=== PATIENT | female | born 1935 | race Caucasian/White ===

== ENCOUNTER 2022-05-23 14:27 | Inpatient (IN) ==
[2022-05-23 17:06] LABS: INR 1.1 (0.9-1.1); Partial Thromboplastin Ratio 0.9; Partial Thromboplastin Time 25.1 Seconds (21.0-31.0); Prothrombin Time 11.4 Seconds (9.0-12.0)
[2022-05-23 17:16] LABS: Albumin Globulin Ratio 1.4 (0.9-2); Albumin Level 3.8 gm/dl (3.4-5.0); BUN Creatinine Ratio 31.3 (10-20); Bilirubin,Total 1.9 mg/dl (0.2-1.0); Calcium 9.4 mg/dl (8.5-10.1); Creatinine Clr Calc Pharmacy 33.8 ml/min; Est GFR (Non-African American) 63.9 ml/min; Globulin 2.8 gm/dl (2.5-4.0); Potassium 3.9 mmol/L (3.5-5.1); Total Protein 6.6 gm/dl (6.0-8.3)
[2022-05-23 17:17] LABS: Hematocrit (blood only) 30.3 % (34.1-44.9); Hemoglobin 10.1 g/dl (12.0-16.0); Mean Corpuscular Hemoglobin 31.4 pg (25.0-34.0); Mean Corpuscular Hgb Conc 33.3 g/dL (32.0-36.0); Mean Corpuscular Volume 94.1 fL (80.0-100.0); Platelet Count 1 K/uL (130-400); RDW Coefficient of Variation 14.6 % (11.5-14.5); RDW Standard Deviation 50.2 fL (36.4-46.3); Red Blood Count 3.22 M/uL (3.93-5.22)
[2022-05-23 17:18] LABS: Basophils # (auto) 0.04 K/uL (0-0.2); Basophils % (auto) 0.6 %; Eosinophils % (auto) 1.4 %; Immature Granulocytes # (auto) 0.02 K/uL (0.00-0.02); Immature Granulocytes % (auto) 0.3 %; Lymphocytes # (auto) 0.94 K/uL (1.2-3.4); Lymphocytes % (auto) 13.2 %; Monocytes # (auto) 0.49 K/uL (0.24-0.82); Monocytes % (auto) 6.9 %; Neutrophils # (auto) 5.51 K/uL (1.4-6.5); Neutrophils % (auto) 77.6 %; Platelet Estimate Signific. Decreased (Normal)
--- NOTE | 2022-05-23 17:46 | Emergency Department Note ---
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 She is in no distress she is breathing comfortably she has no abdominal pain and denies any recent black or bloody stools nor any vomiting. She has no headache or neurologic deficits. Patient had been treated for low platelets since 2016 with what she reports were injections until about 6 months ago. She has been on Dopelet orally for her low platelet counts over the last few months and states that she has been doing well. She is in no distress she is breathing comfortably she has no evidence of other bleeding. Laboratory work-up reveals platelets of 1 otherwise just mild anemia. Reviewed daily labs with her hematology team who advised IV steroids and IVIG and admission here. Without heavy bleeding they advised avoiding antiplatelet transfusion. I discussed this with the on-call hospitalist who state they do not feel comfortable taking care of this patient in case she were to get worse. They note they are concerned that if she had any significant bleeding we would not have enough platelets to treat her and that we do not have neurosurgeons in case she had a head bleed. Patient was accepted to [facility] for further management. She was agreeable to this as was son. Prior Medical Record and Triage/Nursing Notes reviewed by Me Additional history obtained from chart Differentials:Thrombocytopenia anemia, bleeding dyscrasia, active bleeding, intracranial hemorrhage, GI bleed, multiple other allergies considered. Vital Signs: reviewed and remarkable for no significant abnormalities Interventions: Decadron 10mg IV, IVIG Labs:Reviewed and remarkable for thrombocytopenia Consults: Raquel Little [facility] hematology advised Decadron 40 mg IV and IVIG. They advised hospitalization and monitoring awaiting platelets to go up. Discussed with Dr. Chen of [facility] hospitalist service here at [facility] who notes not feeling comfortable keeping the patient here and advised transfer to a higher level of care. Reviewed case with Dr Conde of [facility]. Notes no beds available for the next 24-48 hrs. Advised hospitalize here, management, and will keep on list for transfer with re-evaluation tomorrow with team. I discussed the case again at length with Dr. Chen who again states that he does not feel comfortable caring for this patient, he states patient will need to be attempted to transfer somewhere else. I discussed the case with Dr. Villeda at [facility] who is with their hematology service he agreed with the above treatment that was already being provided here at [facility]. He noted that they have beds at [facility] and if we do not feel comfortable caring for the patient we can transfer the patient there. Agreed with avoiding any transfusion at this time. Plan: Disposition: Transfer to [facility] planned, however awaiting if transport available. Tentatively signed out to Dr Dumont in case unable to get transfer in timely manner. Condition: Good History of Present Illness:86-year-old female arrives for evaluation of low platelets patient states she has a long history of low blood platelets starting in 2016. She used to get injections for this though switch to a pill several months ago when she moved up here from [place]. She ran out of her pill about a week ago. She has noted some increased bruising on her hands may be a little blood in her mouth. She denies any actual coughing up of blood other than noting blood in her sputum when she spits. She has no black or bloody stools. She has no abdominal pain, headache, chest pain, shortness of breath, back pain, leg swelling or other concerning signs or symptoms. She takes no blood thinners. Patient notes she was previously on an injection though has been on Dopelet p.o. but ran out of it a week and a half ago. She was seen at her hematology clinic this morning where labs showed low platelets and given she had had some blood in her mall she was sent to the ER. ROS: See above HPI for pertinent positives & negatives. A total of 10 systems reviewed and were otherwise negative. Past Medical History:Hypertension, ITP Past Surgical History:Denies previous surgeries Family History:Parents are , son is healthy. Social History:Recently moved to the area and lives with son. No smoking Home Medications:Can't remember which blood pressure medicine she is on, Dopelet Allergies:[facility] Vitals:Blood Pressure: 166/62, Pulse 61, RR 20, T 36.4C, O2 95% on RA Physical Exam: GENERAL: Patient is well appearing and in no distress. EYES: No scleral icterus, unremarkable pupils. ENT: Small blood blister right lower and left lower mucosa, no blood in oropharynx at this time. Mucous membranes moist, no nasal congestion. NECK: No masses appreciated, nomeningismus, trachea is midline. RESPIRATORY: No dyspnea. Clear to auscultation and equal bilaterally. No wheeze, no rhonchi. CARDIOVASCULAR: Regular rate and rhythm.No murmurs, rubs, gallops appreciated. GASTROINTESTINAL: Abdomen soft, non-tender, no peritonitis.Bowel sounds positive.No masses appreciated. BACK: No midline tenderness, no CVA tenderness EXTREMITIES: Normal motion all extremities, no cyanosis, no edema. NEUROLOGIC: Alert and oriented, no acute motor or sensory deficits, no focal weakness, cranial nerves grossly intact. SKIN: Small areas of bleeding and some petechiae noted. No rash, no jaundice, no diaphoresis. PSYCH: Appropriate GCS: 15 ED Course: Times/Reassessments: Stable throughout no distress and comfortable with plan for transfer to higher level of care Azam Han MD Past Med/Surg History Social History Smoking Status: Former smoker Hx Alcohol Use: No Hx Substance Use: No Preferred Language: Occitan Communication Ability: Effective Tree Pruner Required: No Beliefs That Will Affect Care: None Current Living Situation: Family Feels Safe at Home: Yes Safety Concerns: Feels Safe At This Time Assistive Devices: Glasses Allergies Allergies Allergy/AdvReac Type Severity Reaction Status Date / Time lisinopril AdvReac Gastrointestinal Unverified 05/23/22 19:33 Upset Home Meds Home Medications Medication Instructions Recorded Confirmed amlodipine 2.5 mg tablet 2.5 mg PO DAILY 05/23/22 05/23/22 bisoprolol fumarate 5 mg tablet 5 mg PO DAILY 05/23/22 05/23/22 cholecalciferol (vitamin D3) 25 25 mcg PO DAILY 05/23/22 05/23/22 mcg (1,000 unit) tablet (Vitamin D3) cyanocobalamin (vitamin B-12) 1,000 mcg PO DAILY 05/23/22 05/23/22 1,000 mcg tablet hydrochlorothiazide 12.5 mg tablet 12.5 mg PO DAILY 05/23/22 05/23/22 Results & Data (ED) Vital Signs Vital Signs - 24 hr 05/23/22 14:35 05/23/22 17:40 05/23/22 18:30 Temperature 36.4 C L Temperature Source Oral Pulse Rate 67 Pulse Rate [Apical] 67 54 L Pulse Rate from SpO2 Sensor Pulse Rhythm [Apical] Regular Respiratory Rate 18 18 18 Respiratory Effort / Characteristics Non-Labored Spontaneous Non-Labored Non-Labored Respiratory Depth Normal Normal Normal Respiratory Pattern Regular Blood Pressure Blood Pressure [Right Arm] 175/62 H 175/62 H Blood Pressure Mean Blood Pressure Mean [Right Arm] 99 99 Blood Pressure Position [Right Arm] Pulse Oximetry 98 100 96 Oxygen Delivery Method Room Air Room Air Room Air Sepsis Recent Fever Within 48 Hours No Sepsis New/Unexplained Change in Mental Status No Sepsis Action Taken by Nursing No Action Required 05/23/22 19:00 05/23/22 20:37 05/23/22 20:00 Temperature 36.9 C Temperature Source Oral Pulse Rate 61 65 Pulse Rate [Apical] 59 L Pulse Rate from SpO2 Sensor 63 67 Pulse Rhythm [Apical] Respiratory Rate 26 H 16 20 Respiratory Effort / Characteristics Respiratory Depth Respiratory Pattern Blood Pressure 166/62 H 169/74 H Blood Pressure [Right Arm] 141/69 H Blood Pressure Mean 96 105 Blood Pressure Mean [Right Arm] 93 Blood Pressure Position [Right Arm] Lying Pulse Oximetry 95 94 95 Oxygen Delivery Method Room Air Room Air Room Air Sepsis Recent Fever Within 48 Hours Sepsis New/Unexplained Change in Mental Status Sepsis Action Taken by Nursing 05/23/22 20:53 05/23/22 21:12 05/23/22 21:35 Temperature 36.9 C 36.8 C 36.6 C Temperature Source Oral Oral Oral Pulse Rate Pulse Rate [Apical] 95 H 63 62 Pulse Rate from SpO2 Sensor Pulse Rhythm [Apical] Respiratory Rate 16 16 16 Respiratory Effort / Characteristics Non-Labored Spontaneous Respiratory Depth Normal Respiratory Pattern Blood Pressure Blood Pressure [Right Arm] 146/54 H 151/62 H 122/81 Blood Pressure Mean Blood Pressure Mean [Right Arm] 84 91 94 Blood Pressure Position [Right Arm] Semi-fowlers Semi-fowlers Lying Pulse Oximetry 95 96 97 Oxygen Delivery Method Room Air Room Air Sepsis Recent Fever Within 48 Hours Sepsis New/Unexplained Change in Mental Status Sepsis Action Taken by Nursing 05/23/22 21:56 05/23/22 22:36 05/23/22 23:26 Temperature 36.6 C 36.5 C Temperature Source Oral Oral Pulse Rate Pulse Rate [Apical] 66 68 Pulse Rate from SpO2 Sensor Pulse Rhythm [Apical] Respiratory Rate 16 16 Respiratory Effort / Characteristics Non-Labored Spontaneous Respiratory Depth Normal Respiratory Pattern Blood Pressure Blood Pressure [Right Arm] 155/64 H 150/110 H Blood Pressure Mean Blood Pressure Mean [Right Arm] 94 123 Blood Pressure Position [Right Arm] Sitting Pulse Oximetry 97 97 Oxygen Delivery Method Room Air Room Air Sepsis Recent Fever Within 48 Hours Sepsis New/Unexplained Change in Mental Status Sepsis Action Taken by Nursing 05/23/22 21:30 05/23/22 22:00 05/23/22 22:15 Temperature Temperature Source Pulse Rate 65 63 60 Pulse Rate [Apical] Pulse Rate from SpO2 Sensor 65 63 60 Pulse Rhythm [Apical] Respiratory Rate 17 23 20 Respiratory Effort / Characteristics Respiratory Depth Respiratory Pattern Blood Pressure 152/59 H 113/49 L Blood Pressure [Right Arm] Blood Pressure Mean 90 70 Blood Pressure Mean [Right Arm] Blood Pressure Position [Right Arm] Pulse Oximetry 97 96 96 Oxygen Delivery Method Room Air Room Air Sepsis Recent Fever Within 48 Hours Sepsis New/Unexplained Change in Mental Status Sepsis Action Taken by Nursing 05/23/22 22:30 05/23/22 22:45 05/23/22 23:00 Temperature Temperature Source Pulse Rate 61 62 59 L Pulse Rate [Apical] Pulse Rate from SpO2 Sensor 63 61 59 L Pulse Rhythm [Apical] Respiratory Rate 18 18 19 Respiratory Effort / Characteristics Respiratory Depth Respiratory Pattern Blood Pressure 140/59 L 136/52 L 122/52 L Blood Pressure [Right Arm] Blood Pressure Mean 86 80 75 Blood Pressure Mean [Right Arm] Blood Pressure Position [Right Arm] Pulse Oximetry 96 99 97 Oxygen Delivery Method Room Air Room Air Room Air Sepsis Recent Fever Within 48 Hours Sepsis New/Unexplained Change in Mental Status Sepsis Action Taken by Nursing Laboratory Data Result diagrams: 05/24/22 05:42 05/24/22 05:42 Lab Results 05/23/22 05/23/22 05/23/22 Range/Units 16:30 16:32 16:32 WBC 7.10 (4.8-10.8) K/ul RBC 3.22 L (3.93-5.22) M/uL Hgb 10.1 L (12.0-16.0) g/dl Hct 30.3 L (34.1-44.9) % MCV 94.1 (80.0-100.0) fL MCH 31.4 (25.0-34.0) pg MCHC 33.3 (32.0-36.0) g/dL RDW Std Deviation 50.2 H (36.4-46.3) fL RDW Coeff of Dwaine 14.6 H (11.5-14.5) % Plt Count 1 L* (130-400) K/uL Immature Gran % (Auto) 0.3 % Neut % (Auto) 77.6 % Lymph % (Auto) 13.2 % Willacy % (Auto) 6.9 % Eos % (Auto) 1.4 % Baso % (Auto) 0.6 % Neut # (Auto) 5.51 (1.4-6.5) K/uL Lymph # (Auto) 0.94 L (1.2-3.4) K/uL Willacy # (Auto) 0.49 (0.24-0.82) K/uL Eos # (Auto) 0.10 (0-0.50) K/uL Baso # (Auto) 0.04 (0-0.2) K/uL Immature Gran # (Auto) 0.02 (0.00-0.02) K/uL Platelet Estimate Signific. Decreased L (Normal) PT 11.4 (9.0-12.0) Seconds INR 1.1 (0.9-1.1) APTT 25.1 (21.0-31.0) Seconds PTT Ratio 0.9 Sodium 138 (136-145) mmol/L Potassium 3.9 (3.5-5.1) mmol/L Chloride 102 (98-107) mmol/L Carbon Dioxide 32 (21-32) mmol/L Anion Gap 4 (3-11) BUN 26 H (6-23) mg/dl Creatinine 0.83 (0.6-1.2) mg/dl Est Cr Clr Drug Dosing 33.8 ml/min Est GFR ( Amer) 74.0 ml/min Est GFR (Non-Af Amer) 63.9 ml/min BUN/Creatinine Ratio 31.3 H (10-20) Glucose 101 H (70-99(Fasting)) mg/dl Calcium 9.4 (8.5-10.1) mg/dl Total Bilirubin 1.9 H (0.2-1.0) mg/dl AST 16 (13-39) U/L ALT 9 (7-52) U/L Alkaline Phosphatase 31 L (34-104) U/L Total Protein 6.6 (6.0-8.3) gm/dl Albumin 3.8 (3.4-5.0) gm/dl Globulin 2.8 (2.5-4.0) gm/dl Albumin/Globulin Ratio 1.4 (0.9-2) SARS-CoV-2, RNA, NAAT (NEGATIVE) 05/23/22 Range/Units 18:26 WBC (4.8-10.8) K/ul RBC (3.93-5.22) M/uL Hgb (12.0-16.0) g/dl Hct (34.1-44.9) % MCV (80.0-100.0) fL MCH (25.0-34.0) pg MCHC (32.0-36.0) g/dL RDW Std Deviation (36.4-46.3) fL RDW Coeff of Dwaine (11.5-14.5) % Plt Count (130-400) K/uL Immature Gran % (Auto) % Neut % (Auto) % Lymph % (Auto) % Willacy % (Auto) % Eos % (Auto) % Baso % (Auto) % Neut # (Auto) (1.4-6.5) K/uL Lymph # (Auto) (1.2-3.4) K/uL Willacy # (Auto) (0.24-0.82) K/uL Eos # (Auto) (0-0.50) K/uL Baso # (Auto) (0-0.2) K/uL Immature Gran # (Auto) (0.00-0.02) K/uL Platelet Estimate (Normal) PT (9.0-12.0) Seconds INR (0.9-1.1) APTT (21.0-31.0) Seconds PTT Ratio Sodium (136-145) mmol/L Potassium (3.5-5.1) mmol/L Chloride (98-107) mmol/L Carbon Dioxide (21-32) mmol/L Anion Gap (3-11) BUN (6-23) mg/dl Creatinine (0.6-1.2) mg/dl Est Cr Clr Drug Dosing ml/min Est GFR ( Amer) ml/min Est GFR (Non-Af Amer) ml/min BUN/Creatinine Ratio (10-20) Glucose (70-99(Fasting)) mg/dl Calcium (8.5-10.1) mg/dl Total Bilirubin (0.2-1.0) mg/dl AST (13-39) U/L ALT (7-52) U/L Alkaline Phosphatase (34-104) U/L Total Protein (6.0-8.3) gm/dl Albumin (3.4-5.0) gm/dl Globulin (2.5-4.0) gm/dl Albumin/Globulin Ratio (0.9-2) SARS-CoV-2, RNA, NAAT NEGATIVE (NEGATIVE) Administered Medications Amlodipine Besylate (Amlodipine Besylate 5 Mg Tab) 2.5 mg PO DAILY DEEPTHI Stop: 06/23/22 08:59 Last Admin: 05/24/22 09:27 Dose: 2.5 mg Documented By: MANJU Bisoprolol Fumarate (Bisoprolol Fumarate 5 Mg Tab) 5 mg PO DAILY DEEPTHI Stop: 06/23/22 08:59 Last Admin: 05/24/22 09:28 Dose: 5 mg Documented By: MANJU Cyanocobalamin (Cyanocobalamin (B-12) 500 Mcg Tablet) 1,000 mcg PO DAILY DEEPTHI Stop: 06/23/22 08:59 Last Admin: 05/24/22 09:28 Dose: 1,000 mcg Documented By: MANJU Hydrochlorothiazide (Hydrochlorothiazide 25 Mg Tab) 12.5 mg PO DAILY DEEPTHI Stop: 06/23/22 08:59 Last Admin: 05/24/22 09:27 Dose: 12.5 mg Documented By: MANJU Vitamin D (Cholecalciferol 1,000 Units 25 Mcg Tab) 1,000 units PO DAILY DEEPTHI Stop: 06/23/22 08:59 Last Admin: 05/24/22 09:27 Dose: 1,000 units Documented By: MANJU Discontinued Medications Clonidine HCl (Clonidine Hcl 0.1 Mg Tab) 0.1 mg PO NOW ONE Stop: 05/24/22 02:39 Last Admin: 05/24/22 03:07 Dose: 0.1 mg Documented By: TMG Dexamethasone Sodium Phosphate (DexamethasonePf 10 Mg/Ml Vial) 10 mg IV NOW ONE Stop: 05/23/22 18:12 Last Admin: 05/23/22 18:22 Dose: 10 mg Documented By: BLAYNE Dexamethasone Sodium Phosphate (DexamethasonePf 10 Mg/Ml Vial) 30 mg IV NOW ONE Stop: 05/23/22 19:21 Last Admin: 05/23/22 20:14 Dose: 30 mg Documented By: AWAIS Pantoprazole Sodium 80 mg/ (Dextrose) 100 mls @ 400 mls/hr IV ONE STA Stop: 05/23/22 19:34 Last Infusion: 05/23/22 20:20 Dose: 0 mls/hr Documented By: Admin: 05/23/22 20:00 Dose: 400 mls/hr Documented By: Immune Globulin (Octagam 10%) 100 mls @ 26.4 mls/hr IV 2000,2100,2200,2300 DEEPTHI; Protocol Stop: 05/24/22 08:00 Last Titration: 05/24/22 02:03 Dose: 0 mg/kg/min, 0 mls/hr Documented By: Admin: 05/24/22 00:54 Dose: 3.79 mg/kg/min, 100 mls/hr Documented By: Titration: 05/24/22 00:54 Dose: 3.79 mg/kg/min, 100 mls/hr Documented By: Admin: 05/23/22 23:55 Dose: 3.79 mg/kg/min, 100 mls/hr Documented By: Titration: 05/23/22 23:36 Dose: 0 mg/kg/min, 0 mls/hr Documented By: Titration: 05/23/22 23:28 Dose: 5.68 mg/kg/min, 150 mls/hr Documented By: Titration: 05/23/22 23:06 Dose: 4.73 mg/kg/min, 125 mls/hr Documented By: Titration: 05/23/22 22:35 Dose: 3.79 mg/kg/min, 100 mls/hr Documented By: Admin: 05/23/22 22:34 Dose: 2.84 mg/kg/min, 75 mls/hr Documented By: Titration: 05/23/22 22:34 Dose: 2.84 mg/kg/min, 75 mls/hr Documented By: Titration: 05/23/22 21:58 Dose: 2.84 mg/kg/min, 75 mls/hr Documented By: Titration: 05/23/22 21:36 Dose: 1.89 mg/kg/min, 50 mls/hr Documented By: Titration: 05/23/22 21:14 Dose: 1.33 mg/kg/min, 35 mls/hr Documented By: Admin: 05/23/22 20:39 Dose: 1 mg/kg/min, 26.4 mls/hr Documented By: Magnesium Sulfate/Dextrose (Magnesium Sulfate / D5w) 1 gm in 100 mls @ 50 mls/hr IV Q2H DEEPTHI Stop: 05/24/22 12:14 Last Admin: 05/24/22 11:29 Dose: 50 mls/hr Documented By: Infusion: 05/24/22 11:27 Dose: 50 mls/hr Documented By: Admin: 05/24/22 09:27 Dose: 50 mls/hr Documented By: MANJU Immune Globulin (Immune Globulin (Human) Soln ) 1 each IV NOW STA Stop: 05/23/22 18:12 Last Admin: 05/23/22 20:44 Dose: Not Given Documented By: Discharge Plan Visit Data Chief Complaint: Abnormal Labs/Diagnostic Testing Stated Complaint: PLATLETTE LOW,REF BY DOC ED Provider: Wilder Dumont Discharge Problem: Acute idiopathic thrombocytopenic purpura, Thrombocytopenia, Gingival bleeding, Petechiae Patient Disposition: Admitted As Inpatient Discharge Instructions Interventions: ED Discharge Assessment Last Done: 05/24/22 01:50
[2022-05-23] MEDS ORDERED: dexAMETHasone**PF** 10 MG/ML VIAL IV ONE ×2 (18:11→19:20)
[2022-05-23] MEDS ORDERED: IMMUNE GLOBULIN (HUMAN) SOLN IV STA (18:11)
[2022-05-23] MEDS ORDERED: PANTOprazole 80 MG in DEXTROSE 5% 100 ML IV STA (19:20)
[2022-05-23] MEDS: IMMUN GLOBG(IGG)/MALT/IGA OV50 100 ML IV SCH ×3 (20:39→23:55)
--- NOTE | 2022-05-23 21:23 | Emergency Department Note ---
ED Visit Note Patient is an 86-year-old female who presents to the ER was seen and evaluated by Dr. Han. Diagnosed with ITP and discussed with the hospitalist initially for admission. It was declined as they are concerned that at some point in the future this patient could have a head bleed with the platelets being low. They consequently recommended transfer. [facility] was called and they declined as there is no beds. He was eventually accepted to [facility] but there is no transportation and patient will be here for greater than [address] Blanca for admission. .
[2022-05-24] MEDS: IMMUN GLOBG(IGG)/MALT/IGA OV50 100 ML IV SCH (00:54)
--- NOTE | 2022-05-24 01:59 | History and Physical Report ---
DATE OF ADMISSION: 05/23/2022. CHIEF COMPLAINT: Thrombocytopenia. HISTORY OF PRESENT ILLNESS: An 86-year-old female with past medical history significant for hypertension, constipation, chronic ITP. The patient used to be on Doptelet tablets for her ITP. She ran off of the medications last Monday and refills were pending and she developed bruises allover and outpatient labs showed platelets were 10s and she was advised to come to the hospital and in the ER, her platelets were in the 1000. After talking to Hem/Onc, she was given 40 of IV Decadron and IVIG. Plan was to transfer to [facility] for tertiary care as we do not have specialist if she bleeds. [facility] has no beds for 24-48 hours. [facility] accepted the patient, but they do not have beds until tomorrow, so we were called for admission. The patient is resting comfortably, hemodynamically stable. Denies any headache. No blurred visions, no earache, no runny nose, no sore throat, no cough, no chest pain, no shortness of breath, no nausea, no vomiting, no abdominal pain, no epistaxis. No hematuria, no blood in the stools or black stools. Appetite is okay. She ambulates with support. Currently living with her son. Afebrile. ALLERGIES: LISINOPRIL. PAST MEDICAL HISTORY: As mentioned above. PAST SURGICAL HISTORY: No surgical history on file. MEDICATIONS: The patient is on amlodipine 2.5 mg p.o. daily, Doptelet 20 mg tablet as directed, bisoprolol 5 mg p.o. daily, vitamin D 25 mcg p.o. daily, vitamin B12 1000 mcg p.o. daily, hydrochlorothiazide 12.5 mg p.o. daily. FAMILY HISTORY: No family history on file. SOCIAL HISTORY: , currently living with her son. No smoking, no alcohol, no drug use. REVIEW OF SYSTEMS: As per HPI. Rest of the review of systems is negative. PHYSICAL EXAMINATION: GENERAL: The patient is old and frail, not in acute distress. VITAL SIGNS: Temperature 36.5, pulse 60, respiratory rate 16, blood pressure 150/110, oxygen 97% on room air. HEENT: Pupils equal, round and reactive to light. Oral mucosa moist. NECK: No JVD, no neck masses. CARDIOVASCULAR: S1 and S2 heard. Regular rate and rhythm. No murmur, no gallop. RESPIRATORY SYSTEM: Normal AP diameter. No accessory muscle use. No wheezing, no crackles. ABDOMEN: Soft, bowel sounds present, nontender, no distention. CENTRAL NERVOUS SYSTEM: Cranial nerves II through XII grossly intact, nonfocal. EXTREMITIES: No edema, no erythema. LABORATORY DATA: WBC 7, hemoglobin 10.1, hematocrit 30.3, platelets 1. PT 11.4, INR 1.1, APTT 25.1. Sodium 138, potassium 3.9, chloride 102, bicarbonate 32, BUN 26, creatinine 0.8, serum glucose 101, calcium 9.4, total bilirubin 1.9, AST 16, ALT 9, alkaline phosphatase 31. SARS-CoV-2 rapid test negative. ASSESSMENT AND PLAN: This is an 86-year-old female who presents with thrombocytopenia. 1. History of chronic idiopathic thrombocytopenic purpura: Currently refills of her regular medication, Doptelet, which she finished last Monday were pending and presented with , platelets around 1000 here. She was given a dose of IV Decadron 40 mg and IVIG. Plan for transfer to [facility] possibly in the a.m. Monitor the labs. Closely monitor in tele floor. 2. History of hypertension: Continue her home medications of amlodipine, bisoprolol, and hydrochlorothiazide. Monitor her blood pressure. 3. Deep venous thrombosis prophylaxis: Sequential compression devices. DISPOSITION: Closely monitor in tele floor. Expect to transfer to [facility] when bed is available. Level 1 full code. Job ID: [id number] [facility]
[2022-05-24] MEDS ORDERED: NITROGLYCERIN SL 0.4 MG/TAB TAB SL PRN (02:30)
[2022-05-24] MEDS ORDERED: ACETAMINOPHEN 325 MG TAB PO PRN (02:30)
[2022-05-24] MEDS ORDERED: cloNIDine HCL 0.1 MG TAB PO ONE (02:38)
[2022-05-24 06:30] LABS: BUN Creatinine Ratio 44.3 (10-20); Calcium 8.5 mg/dl (8.5-10.1); Creatinine Clr Calc Pharmacy 35.7 ml/min; Est GFR (African American) 78.6 ml/min; Est GFR (Non-African American) 67.8 ml/min; Magnesium 1.5 mg/dl (1.7-2.4); Potassium 4.1 mmol/L (3.5-5.1)
[2022-05-24 06:35] LABS: Hematocrit (blood only) 24.2 % (34.1-44.9); Hemoglobin 8.2 g/dl (12.0-16.0); Mean Corpuscular Hemoglobin 31.3 pg (25.0-34.0); Mean Corpuscular Hgb Conc 33.9 g/dL (32.0-36.0); Mean Corpuscular Volume 92.4 fL (80.0-100.0); Platelet Count 7 K/uL (130-400); RDW Coefficient of Variation 14.6 % (11.5-14.5); RDW Standard Deviation 49.2 fL (36.4-46.3); Red Blood Count 2.62 M/uL (3.93-5.22); White Blood Count 3.95 K/ul (4.8-10.8)
[2022-05-24 07:01] LABS: Basophils # (auto) 0.01 K/uL (0-0.2); Basophils % (auto) 0.3 %; Immature Granulocytes # (auto) 0.01 K/uL (0.00-0.02); Immature Granulocytes % (auto) 0.3 %; Lymphocytes # (auto) 0.56 K/uL (1.2-3.4); Lymphocytes % (auto) 14.2 %; Monocytes # (auto) 0.06 K/uL (0.24-0.82); Monocytes % (auto) 1.5 %; Neutrophils # (auto) 3.31 K/uL (1.4-6.5); Neutrophils % (auto) 83.7 %; Ovalocytes 1+; Poikilocytosis Present; Tear Drop Cells 1+
--- NOTE | 2022-05-24 08:10 | Discharge Summary ---
Date of Service May 24, 2022 Admission HPI Per Admitting Provider An 86-year-old female with past medical history significant for hypertension, constipation, chronic ITP. The patient used to be on Doptelet tablets for her ITP. She ran off of the medications last Monday and refills were pending and she developed bruises allover and outpatient labs showed platelets were 10s and she was advised to come to the hospital and in the ER, her platelets were in the 1000. After talking to Hem/Onc, she was given 40 of IV Decadron and IVIG. Plan was to transfer to [place] for tertiary care as we do not have specialist if she bleeds. [facility] has no beds for 24-48 hours. [facility] accepted the patient, but they do not have beds until tomorrow, so we were called for admission. The patient is resting comfortably, hemodynamically stable. Denies any headache. No blurred visions, no earache, no runny nose, no sore throat, no cough, no chest pain, no shortness of breath, no nausea, no vomiting, no abdominal pain, no epistaxis. No hematuria, no blood in the stools or black stools. Appetite is okay. She ambulates with support. Currently living with her son. Afebrile. Admission Exam Per Admitting Provider GENERAL: The patient is old and frail, not in acute distress. VITAL SIGNS: Temperature 36.5, pulse 60, respiratory rate 16, blood pressure 150/110, oxygen 97% on room air. HEENT: Pupils equal, round and reactive to light. Oral mucosa moist. NECK: No JVD, no neck masses. CARDIOVASCULAR: S1 and S2 heard. Regular rate and rhythm. No murmur, no gallop. RESPIRATORY SYSTEM: Normal AP diameter. No accessory muscle use. No wheezing, no crackles. ABDOMEN: Soft, bowel sounds present, nontender, no distention. CENTRAL NERVOUS SYSTEM: Cranial nerves II through XII grossly intact, nonfocal. EXTREMITIES: No edema, no erythema. Principal Diagnosis ITP Discharge Data Allergies Allergy/AdvReac Type Severity Reaction Status Date / Time lisinopril AdvReac Gastrointestinal Unverified 05/23/22 19:33 Upset Consultations 05/23/22 21:22 ED Decision to Admit Stat Hospital Course (1) Acute idiopathic thrombocytopenic purpura: Patient is accepted for transfer to [facility] and awaiting transfer. Morning Labs Platelets 7K. Last Night H and P A/P: This is an 86-year-old female who presents with thrombocytopenia. 1. History of chronic idiopathic thrombocytopenic purpura: Currently refills of her regular medication, Doptelet, which she finished last Monday were pending and presented with , platelets around 1000 here. She was given a dose of IV Decadron 40 mg and IVIG. Plan for transfer to [facility] possibly in the a.m. Monitor the labs. Closely monitor in tele floor. 2. History of hypertension: Continue her home medications of amlodipine, bisoprolol, and hydrochlorothiazide. Monitor her blood pressure. 3. Deep venous thrombosis prophylaxis: Sequential compression devices. (2) Thrombocytopenia: (3) Petechiae: Total Time Total Time Spent Total Time Spent (In Minutes): 40minutes Discharge Plan Discharge Items Patient Disposition: Transfer Acute Care Hospital Reason For Visit: ITP Discharge Diagnosis: ITP Activity: As commented below Activity Comment: Bed rest Non-emergency contact: Primary Care Provider Call non-emergency contact if: you have any medication questions and your symptoms worsen Follow-up/Referrals: Raysa Watson CRNP [Primary Care Provider] - Diet: Nothing by Mouth Addtl Attending Provider Instructions: Received iv decadron 40mg and one dose of IVIG Pending Studies at Discharge: No Stand-Alone Forms: My [facility] Skilled Items Patient informed of condition?: Yes DNR: No Discharge Level of Care: Other Communicable Disease: No Discharge Prognosis: Other Lines: Peripheral IV Urinary Catheter: No Medications and DC Order Prescriptions: Continued amlodipine 2.5 mg tablet 2.5 mg PO DAILY hydrochlorothiazide 12.5 mg tablet 12.5 mg PO DAILY bisoprolol fumarate 5 mg tablet 5 mg PO DAILY cholecalciferol (vitamin D3) [Vitamin D3] 25 mcg (1,000 unit) Tablet 25 mcg PO DAILY cyanocobalamin (vitamin B-12) 1,000 mcg Tablet 1,000 mcg PO DAILY Discontinued Doptelet (10 tab pack) 20 mg tablet 0 mg PO UD Discharge Orders: Discharge Order (Routine); Ordered 05/24/22 Ordered By: Koffi Bailey Admission Data Admit Date/Time: 05/23/22 23:28 Attending Provider: Bryant Chen Admit Provider: Koffi Bailey Primary Care Provider: Raysa Watson Other Providers: Koffi Bailey
[2022-05-24] MEDS ORDERED: BISOPROLOL FUMARATE 5 MG TAB PO SCH (09:00)
[2022-05-24] MEDS ORDERED: CYANOCOBALAMIN (B-12) 500 MCG TABLET PO SCH (09:00)
[2022-05-24] MEDS ORDERED: hydroCHLOROthiazide 25 MG TAB PO SCH (09:00)
[2022-05-24] MEDS ORDERED: amLODIPine BESYLATE 5 MG TAB PO SCH (09:00)
[2022-05-24] MEDS ORDERED: CHOLECALCIFEROL 1,000 UNITS 25 MCG TAB PO SCH (09:00)
[2022-05-24] MEDS: MAGNESIUM SULFATE / D5W 1 GM/100 ML BAG IV SCH ×2 (09:27→11:29)
--- NOTE | 2022-05-24 10:59 | Communication Note ---
Date of Service: May 24, 2022 Patient seen and examined at bedside. She is sitting up on the bed comfortably eating breakfast; not in any distress. Denies any cough with hemoptysis, bloody bowel movement. She has bruises on her extremities; has not noticed any other bleeding. On examination she is alert oriented x3 Chest bilateral vesicular breath sound Abdomensoft nontender Extremitybruises present in her arms Neurogrossly intact Assessment/plan ITP status post 1 dose of dexamethasone and IVIG Severe thrombocytopenia Hemodynamically stable; no signs of severe bleeding presently. Patient had episodes of cough with hemoptysis yesterday. Her hemoglobin slightly down trended 10.1-8.2 Platelets slightly improved from [id number] today. Plan; patient accepted at [facility]. Bed is available and patient to be transferred there today afternoon at 12 pm.
== END 2022-05-24 13:38 | disposition short-term general hospital (02) | DRG 813 ==
LOC: ED 14:27 → 2S 23:28

== ENCOUNTER 2023-12-05 21:56 | Inpatient (IN) ==
[2023-12-05] MEDS: METOPROLOL TARTRATE 1 MG/ML VIAL IV STA (22:49)
[2023-12-05 23:09] LABS: HCO3 VBG 39 mmol/L; Oxygen Saturation VBG < 60.0 %; PCO2 VBG 64 mmHg (38-50); PO2 VBG 23 mmHg; pH VBG 7.39 (7.36-7.41)
[2023-12-05 23:14] LABS: Basophils # (auto) 0.07 K/uL (0.00-0.20); Basophils % (auto) 0.4 %; Eosinophils # (auto) 0.06 K/uL (0.00-0.50); Eosinophils % (auto) 0.4 %; Hematocrit (blood only) 28.8 % (37.0-47.0); Hemoglobin 8.8 g/dl (12.0-16.0); Immature Granulocytes # (auto) 0.13 K/uL (0.01-0.20); Immature Granulocytes % (auto) 0.8 %; Lymphocytes # (auto) 1.65 K/uL (1.20-3.40); Mean Corpuscular Hemoglobin 28.5 pg (25.0-34.0); Mean Corpuscular Hgb Conc 30.6 g/dL (32.0-36.0); Mean Corpuscular Volume 93.2 fL (80.0-100.0); Mean Platelet Volume 10.1 fL (9.4-12.4); Monocytes # (auto) 0.91 K/uL (0.11-0.59); Monocytes % (auto) 5.5 %; Neutrophils # (auto) 13.74 K/uL (1.40-6.50); Neutrophils % (auto) 82.9 %; Platelet Count 558 K/uL (130-400); RDW Coefficient of Variation 16.3 % (11.5-14.5); Red Blood Count 3.09 M/uL (4.20-5.40); White Blood Count 16.56 K/ul (4.8-10.8)
[2023-12-05 23:19] LABS: iSTAT Hemoglobin 9.2 g/dl (12.0-16.0); iSTAT Ionized Calcium 1.14 mmol/l (1.12-1.32); iSTAT Potassium 3.4 mmol/L (3.3-5.0)
[2023-12-05 23:32] LABS: Albumin Globulin Ratio 1.2 (0.9-2); Albumin Level 3.3 gm/dl (3.4-5.0); BUN Creatinine Ratio 15.8 (10-20); Bilirubin,Total 0.8 mg/dl (0.2-1.0); Creatinine Clr Calc Pharmacy 28.2 ml/min; Est GFR (African American) 57.6 ml/min; Est GFR (Non-African American) 49.7 ml/min; Globulin 2.7 gm/dl (2.5-4.0); Magnesium 1.6 mg/dl (1.7-2.4); Potassium 3.4 mmol/L (3.5-5.1)
[2023-12-05 23:38] LABS: Troponin I High Sensitivity 18.3 pg/ml (0-14)
[2023-12-05 23:47] LABS: INR 1.2 (0.9-1.1); Partial Thromboplastin Ratio 1.2; Partial Thromboplastin Time 31 Seconds (21-31)
--- NOTE | 2023-12-05 23:57 | Emergency Department Note ---
History of Present Illness General Chief complaint: Shortness of Breath/Dyspnea Stated complaint: SOB, SOME DIZZINESS, LOW OX Time Seen by Provider: 12/05/23 22:28 History of Present Illness This 88-year-old female that normally goes to [facility] presents to the ER complaining of shortness of breath and racing heart. She was newly diagnosed with A-fib 2 weeks ago at [place] and then at [facility]. She is currently on Eliquis and metoprolol. Patient denies prior history of heart failure. Patient has chest pain, fever, chills, flulike illness. She has a history of ITP. Unsure of recent platelet transfusion or blood transfusion. Home Medications Medication Instructions Recorded Confirmed Type cyanocobalamin (vitamin B-12) 1,000 mcg PO DAILY 05/23/22 12/05/23 History 1,000 mcg tablet albuterol sulfate 90 mcg/actuation 2 puff inhalation Q4 PRN Shortness 06/12/23 12/05/23 History aerosol inhaler Of Breath Or Wheezing avatrombopag 20 mg tablet 20 mg PO QAM 06/12/23 12/05/23 History (Doptelet (30 tab pack)) apixaban 2.5 mg tablet (Eliquis) 2.5 mg PO BID 12/05/23 12/05/23 History cholecalciferol (vitamin D3) 50 50 mcg PO DAILY 12/05/23 12/05/23 History mcg (2,000 unit) capsule (Vitamin D3) fluticasone fur. 100 mcg-umeclid 1 inh inhalation QAM 12/05/23 12/05/23 History 62.5 mcg-vilant 25 mcg inhalat.powder (Trelegy Ellipta) furosemide 20 mg tablet 20 mg PO QAM 12/05/23 12/05/23 History metoprolol tartrate 25 mg tablet 25 mg PO BID 12/05/23 12/05/23 History Allergies Allergy/AdvReac Type Severity Reaction Status Date / Time lisinopril AdvReac Intermediate Gastrointestinal Verified 12/05/23 23:46 Upset Past Med/Surg History Problem List (Updated 12/06/23 @ 02:29 by Koffi Bailey MD) SOB (shortness of breath) Hypokalemia (Acute) Hypomagnesemia (Acute) Congestive heart failure (Acute) Anemia (Acute) Hypoxemia (Acute) Atrial fibrillation with rapid ventricular response (Acute) Acute idiopathic thrombocytopenic purpura (Acute) Thrombocytopenia (Acute) Gingival bleeding (Acute) Petechiae (Acute) Social History Smoking Status: Former smoker Hx Alcohol Use: No Hx Substance Use: No Preferred Language: Egyptian Communication Ability: Effective Brass Pickler Required: No Beliefs That Will Affect Care: None Current Living Situation: Family Current Living Situation Comment: Lives with son Feels Safe at Home: Yes Safety Concerns: Feels Safe At This Time Assistive Devices: Walker Review of Systems A total of 10 systems reviewed and were otherwise negative Physical Exam Vital Signs Vital Signs - 24 hr 12/05/23 22:05 12/05/23 22:10 12/05/23 22:21 Temperature 37.1 C Temperature Source Temporal Artery Scan Pulse Rate 110 H 109 H Respiratory Rate 20 17 Blood Pressure 105/53 L Blood Pressure Mean 70 Pulse Oximetry 88 L 88 L 95 Oxygen Delivery Method Nasal Cannula Room Air Oxygen Flow Rate 3 3 Sepsis Recent Fever Within 48 Hours No Sepsis New/Unexplained Change in Mental Status No Sepsis Action Taken by Nursing No Action Required Oxygen Flow Rate - Titration 4 Pulse Oximetry Post Tiitration 93 12/05/23 22:27 12/05/23 22:49 12/05/23 23:00 Temperature Temperature Source Pulse Rate 119 H 120 H 104 H Respiratory Rate 37 H Blood Pressure 127/64 129/76 Blood Pressure Mean 94 Pulse Oximetry 95 Oxygen Delivery Method Nasal Cannula Oxygen Flow Rate 4 Sepsis Recent Fever Within 48 Hours Sepsis New/Unexplained Change in Mental Status Sepsis Action Taken by Nursing Oxygen Flow Rate - Titration Pulse Oximetry Post Tiitration 12/05/23 23:30 12/06/23 00:00 12/06/23 00:30 Temperature Temperature Source Pulse Rate 109 H 98 H 98 H Respiratory Rate 35 H 29 H 30 H Blood Pressure 127/69 114/72 122/73 Blood Pressure Mean 97 81 89 Pulse Oximetry 94 95 94 Oxygen Delivery Method Nasal Cannula Nasal Cannula Nasal Cannula Oxygen Flow Rate 4 4 4 Sepsis Recent Fever Within 48 Hours Sepsis New/Unexplained Change in Mental Status Sepsis Action Taken by Nursing Oxygen Flow Rate - Titration Pulse Oximetry Post Tiitration VITALS: Vitals are noted on the nurse's note and reviewed by myself. Vital signs tachycardia GENERAL: Elderly female with present, in no acute distress, nondiaphoretic, well-developed well-nourished. SKIN: Capillary reflex less than 2 seconds. HEENT: Normocephalic. PERRLA. EOMI. Nares patent. Mucous membranes moist. Neck is supple without nuchal rigidity. HEART: Irregularly irregular tachycardic LUNGS: Mild bibasilar rales. No retractions or accessory muscle use. ABDOMEN: Positive bowel sounds x 4. Normal tympanic percussion. Soft, nontender, without masses or organomegaly. Petersen sign negative. No guarding or rebound tenderness. no CVA tenderness MUSCULOSKELETAL: No gross musculoskeletal defects. NEURO: Patient was alert and oriented to person place and time. No focal neurological deficits. Course Administered Medications Doxycycline Hyclate 100 mg/ (Dextrose) 100 mls @ 50 mls/hr IV Q12H [facility] Stop: 12/13/23 02:59 Last Admin: 12/06/23 03:58 Dose: 50 mls/hr Documented By: VINCENT Discontinued Medications Furosemide (Furosemide 40 Mg/4 Ml Vial) 40 mg IV ONE ONE Stop: 12/05/23 23:52 Last Admin: 12/06/23 00:00 Dose: 40 mg Documented By: DELL Magnesium Sulfate/Dextrose (Magnesium Sulfate / D5w) 1 gm in 100 mls @ 100 mls/hr IV Q1H [facility] Stop: 12/06/23 01:34 Last Infusion: 12/06/23 03:03 Dose: Infused Documented By: Admin: 12/06/23 01:19 Dose: 100 mls/hr Documented By: Infusion: 12/06/23 01:00 Dose: Infused Documented By: Admin: 12/06/23 00:00 Dose: 100 mls/hr Documented By: DELL Ceftriaxone Sodium (Rocephin) 2,000 mg in 50 mls @ 100 mls/hr IV NOW STA Stop: 12/06/23 03:30 Last Infusion: 12/06/23 03:56 Dose: Infused Documented By: Admin: 12/06/23 03:19 Dose: 100 mls/hr Documented By: VINCENT Ioversol (Optiray 320 125ml) 125 ml IV ONCE ONE Stop: 12/06/23 02:09 Last Admin: 12/06/23 02:08 Dose: 117 ml Documented By: LAUREANO Metoprolol Tartrate (Metoprolol Tartrate 1 Mg/Ml Vial) 5 mg IV NOW STA Stop: 12/05/23 22:43 Last Admin: 12/05/23 22:49 Dose: 5 mg Documented By: TONYA Potassium Chloride (Potassium Chloride 20 Meq/15 Ml Udc) 40 meq PO NOW STA Stop: 12/05/23 23:36 Last Admin: 12/06/23 00:00 Dose: 40 meq Documented By: DELL Critical Care Time Total Critical Care Time: 35 I have personally spent 35 minutes of critical care time in the direct management of this patient. This includes bedside care, interpretation of diagnostic studies, and testing, discussion with consultants, patient, and family members, and other required patient management activities. This 35 minutes is in excess of all separately billable procedures. Medical Decision Making Medical Records Attestation: I reviewed the patient's medical records. Home Medications Current Medication List: was personally reviewed by me Laboratory Data Attestation: I reviewed the patient's lab results. 12/05/23 23:00 12/05/23 23:00 Lab Results 12/05/23 12/05/23 12/05/23 Range/Units 23:00 23:02 23:35 WBC 16.56 H (4.8-10.8) K/ul RBC 3.09 L (4.20-5.40) M/uL Hgb 8.8 L (12.0-16.0) g/dl POC Hgb 9.2 L (12.0-16.0) g/dl Hct 28.8 L (37.0-47.0) % POC Hct 27 L (37-47) % MCV 93.2 (80.0-100.0) fL MCH 28.5 (25.0-34.0) pg MCHC 30.6 L (32.0-36.0) g/dL RDW Std Deviation 55.0 H (36.4-46.3) fL RDW Coeff of Dwaine 16.3 H (11.5-14.5) % Plt Count 558 H (130-400) K/uL MPV 10.1 (9.4-12.4) fL Immature Gran % (Auto) 0.8 % Neut % (Auto) 82.9 % Lymph % (Auto) 10.0 % [place] % (Auto) 5.5 % Eos % (Auto) 0.4 % Baso % (Auto) 0.4 % Neut # (Auto) 13.74 H (1.40-6.50) K/uL Lymph # (Auto) 1.65 (1.20-3.40) K/uL [place] # (Auto) 0.91 H (0.11-0.59) K/uL Eos # (Auto) 0.06 (0.00-0.50) K/uL Baso # (Auto) 0.07 (0.00-0.20) K/uL Immature Gran # (Auto) 0.13 (0.01-0.20) K/uL PT 13.0 H (9.0-12.0) Seconds INR 1.2 H (0.9-1.1) APTT 31 (21-31) Seconds PTT Ratio 1.2 VBG pH 7.39 (7.36-7.41) VBG pCO2 64 H (38-50) mmHg VBG pO2 23 mmHg VBG HCO3 39 mmol/L VBG O2 Saturation < 60.0 % VBG Base Excess 11.0 mEq/L POC Sodium 141 (135-144) mmol/L Sodium 143 (136-145) mmol/L POC Potassium 3.4 (3.3-5.0) mmol/L Potassium 3.4 L (3.5-5.1) mmol/L POC Chloride 96 L (101-112) mmol/L Chloride 100 (98-107) mmol/L Carbon Dioxide 38 H (21-32) mmol/L POC Total CO2 35 H (24-31) mmol/L Anion Gap 5 (3-11) POC Anion Gap 14.0 L (16-25) mmol/L POC BUN 15 (7-18) mg/dl BUN 16 (6-23) mg/dl Creatinine 1.01 (0.6-1.2) mg/dl POC Creatinine 1.0 (0.6-1.3) mg/dl Est Cr Clr Drug Dosing 28.2 ml/min Est GFR ( Amer) 57.6 ml/min Est GFR (Non-Af Amer) 49.7 ml/min BUN/Creatinine Ratio 15.8 (10-20) Glucose 117 H (70-99(Fasting)) mg/dl POC Glucose (other) 120 H (70-99) mg/dl Calcium 9.0 (8.6-10.3) mg/dl POC Ioniz Calcium Payal 1.14 (1.12-1.32) mmol/l Magnesium 1.6 L (1.7-2.4) mg/dl Total Bilirubin 0.8 (0.2-1.0) mg/dl AST 14 (13-39) U/L ALT 7 (7-52) U/L Alkaline Phosphatase 53 (34-104) U/L Troponin I High Sens 18.3 H (0-14) pg/ml B-Natriuretic Peptide 828 H (0-100) pg/ml Total Protein 6.0 (6.0-8.3) gm/dl Albumin 3.3 L (3.4-5.0) gm/dl Globulin 2.7 (2.5-4.0) gm/dl Albumin/Globulin Ratio 1.2 (0.9-2) Adenovirus (PCR) Not Detected (NotDetected) B. pertussis DNA (PCR) Not Detected (NotDetected) B.parapertussis DNA PCR Not Detected (NotDetected) C. pneumoniae DNA (PCR) Not Detected (NotDetected) Coronavirus OC43 (PCR) Not Detected (NotDetected) Coronavirus HKU1 (PCR) Not Detected (NotDetected) Coronavirus 229E (PCR) Not Detected (NotDetected) SARS-CoV-2 (PCR) Not Detected (NotDetected) Coronavirus NL63 (PCR) Not Detected (NotDetected) Human Metapneumovir PCR Not Detected (NotDetected) Influenza Type A (PCR) Not Detected (NotDetected) Influenza Type B (PCR) Not Detected (NotDetected) M. pneumoniae (PCR) Not Detected (NotDetected) Parainfluenza 1 (PCR) Not Detected (NotDetected) Parainfluenza 2 (PCR) Not Detected (NotDetected) Parainfluenza 3 (PCR) Not Detected (NotDetected) Parainfluenza 4 (PCR) Not Detected (NotDetected) RSV (PCR) Not Detected (NotDetected) Entero/Rhino (PCR) Not Detected (NotDetected) Imaging Data Attestation: I personally reviewed and interpreted this imaging study as follows: MDM Narrative Prior records/ancillary studies reviewed. Triage Nursing notes reviewed. Additional history obtained from the family. The patient's history was concerning for respiratory difficulties. Differential diagnosis: Etiologies such as infections, reactive airway disease, pneumonia, pneumothorax, COPD, CHF, cardiac ischemia, pulmonary embolism, musculoskeletal, gastrointestinal, as well as others were entertained. Physical examination: As above. ER treatment provided: An order was placed for continuous cardiac monitoring. The monitor shows a rate of 60-1 80 with a A-fib rhythm per my interpretation. Lopressor, Lasix, magnesium, potassium On reassessment the patient felt better. Diagnostic interpretation by me: The electrocardiogram was ordered for SOB. ECG: Irregularly irregular no acute ST-T wave changes, rate of 130. Impression A-fib RVR independently interpreted by myself The labs Independently Interpreted by myself revealed elevated troponin, elevated BNP, anemia, low magnesium, low potassium Imaging studies: Chest x-ray with mild pulmonary congestion without pneumothorax or free air per my independent or potation. HEART SCORE: Hx: high/mod/low suspicion: 0 ECG: ST depression/nonspecific changes/normal: 1 Age: Greater than 65/45-64/less than 45: 2 Risk factors: (Hypertension, hyperlipidemia, diabetes, coronary disease, tobacco use, cocaine use): 2 Troponin: Greater than 2 times normal limits/1-2 times normal limits/normal: 1 Total: 5 Consultation: A consultation was placed with the hospitalist. The case was discussed and diagnostics were reviewed. The patient was evaluated in the ER for further treatment. This appears to be consistent with A-fib RVR with heart failure. Patient was given Lopressor and heart rate improved. She is given Lasix and breathing improved. Electrolytes were replaced. Medicine is consulted and the case was discussed. She will admitted to the medical service for further evaluation and treatment. By the evaluation outlined above emergent etiologies such as pulmonary embolism, reactive airway disease, pneumothorax, musculoskeletal, serious bacterial infections, as well as others were deemed relatively unlikely. The pt informed about the findings as listed above. All questions were answered and pleased with the treatment. The chart was completed utilizing [employer] voice recognition software. Grammatical errors, random word insertions, pronoun errors, and incomplete sentences are an occassional consequence of this system due to software limitations, ambient noise, and hardware issues. Any formal questions or concerns about the content, text, or information contained within the body of this dictation should be directly addressed to the physician human resource assistant for clarification. Impression & Plan Atrial fibrillation with rapid ventricular response, Hypoxemia, Anemia, Congestive heart failure, Hypomagnesemia, Hypokalemia Discharge Plan Visit Data Chief Complaint: Shortness of Breath/Dyspnea Stated Complaint: SOB, SOME DIZZINESS, LOW OX ED Provider: Champ Choi ED Midlevel Provider: Coby Siu Discharge Problem: Atrial fibrillation with rapid ventricular response, Hypoxemia, Anemia, Congestive heart failure, Hypomagnesemia, Hypokalemia Patient Disposition: Admitted As Inpatient Condition: Fair Discharge Instructions Interventions: ED Discharge Assessment Last Done: 12/06/23 02:48
[2023-12-06] MEDS: FUROSEMIDE 40 MG/4 ML VIAL IV ONE
[2023-12-06] MEDS: POTASSIUM CHLORIDE 20 MEQ/15 ML UDC PO STA
[2023-12-06] MEDS: MAGNESIUM SULFATE / D5W 1 GM/100 ML BAG IV SCH
[2023-12-06 01:03] LABS: Adenovirus PCR Not Detected (NotDetected); Bordetella parapertussis PCR Not Detected (NotDetected); Bordetella pertussis PCR Not Detected (NotDetected); Chlamydia pneumoniae PCR Not Detected (NotDetected); Coronavirus 229E PCR Not Detected (NotDetected); Coronavirus CoV-2 (COVID19)PCR Not Detected (NotDetected); Coronavirus HKU1 PCR Not Detected (NotDetected); Coronavirus NL63 PCR Not Detected (NotDetected); Coronavirus OC43PCR Not Detected (NotDetected); Human Metapneumovirus PCR Not Detected (NotDetected); Influenza A PCR Not Detected (NotDetected); Influenza B PCR Not Detected (NotDetected); Mycoplasma pneumoniae PCR Not Detected (NotDetected); Parainfluenza Virus 1 PCR Not Detected (NotDetected); Parainfluenza Virus 2 PCR Not Detected (NotDetected); Parainfluenza Virus 3 PCR Not Detected (NotDetected); Parainfluenza Virus 4 PCR Not Detected (NotDetected); Respiratory Syncytial VirusPCR Not Detected (NotDetected); Rhinovirus/Enterovirus PCR Not Detected (NotDetected)
[2023-12-06 01:45] LABS: Appearance Urine Clear (Clear); Bacteria Urine Automated None Seen (None Seen); Bilirubin Urine Negative (Negative); Blood Urine Negative (Negative); Color Urine Yellow; Glucose Urine UA Negative (Negative); Ketones Urine Negative (Negative); Leukocyte Esterase Urine Trace (Negative); Nitrite Urine Negative (Negative); Protein Urine Negative (Negative); RBC Urine Automated 0-2 /hpf (0-2); Specific Gravity Urine 1.008 (1.000-1.030); Urobilinogen Urine Negative (Negative); WBC Urine Automated 0-5 /hpf (0-5)
[2023-12-06] MEDS: OPTIRAY 320 125ml IV ONE (02:08)
--- NOTE | 2023-12-06 02:24 | History & Physical Report ---
Date of Service December 06, 2023 Assessment & Plan (1) SOB (shortness of breath): Plan: 88-year-old female with past medical history significant for chronic respiratory failure with hypoxia currently on home oxygen 3 L, COPD, moderate pulmonary hypertension, hypertension constipation, protein-calorie malnutrition, CKD stage III , chronic ITP, history of nonmelanoma skin cancer presents with shortness of breath and rapid A-fib. Patient says she was doing fine in the morning and in the evening suddenly started feeling short of breath. Then she panicked and felt her heart palpitations. Currently on 4 to 5 L she saturating okay. Able to give her history. Denies any chest pain. Has some mild dry cough. Denies fevers. Denies any headache. Vision is okay. Currently no runny nose. No sore throat. Appetite is okay. No difficulty swallowing. No nausea. No sweating. No abdominal pain. States she is constipated but had a bowel movement today. Denies any blood in the stools or black stools. Normal micturition. Ambulates with a walker. Lives with her son. Recently on November 07 patient was admitted to [facility] with shortness of breath and increasing oxygen requirements and nosebleed and black stools and black stools were thought to be from nosebleed and found to have platelets for 5 in setting of stopping her Doptelet for a week due to elevated platelets of 684. And on November 08 patient was transferred from [facility] to [facility] for severe thrombocytopenia as platelet counts are only 5.After discussing with heme-onc was given IV Methylprednisolone 1000 mg IV daily for 3 days. And continued her home Doptelet. Her platelet count improved at time of discharge to 56. Looks like patient was again admitted to [facility] on November 14, 2023 with a dizziness and hypotension. Received fluids. Patient also found to be in rapid A-fib new onset and discharged on metoprolol and Eliquis. She followed up with cardiology on November 27 and her Lasix dose has been decreased from 40 mg to 20 mg because of low blood pressure and dizziness. Leg swelling is improved. Acute on chronic respiratory failure with hypoxia on home oxygen 3 L currently requiring 4 to 5 L Shortness of breath Has bilateral mild coarse crackles No obvious wheezing Elevated BNP Possible acute on chronic heart failure with preserved ejection fraction Possible underlying pneumonia as patient has leukocytosis Respiratory bio fire negative Will follow CT chest Received dose of IV Lasix in the ER Empirically placed on IV Rocephin and Doxy Nebs [id number] and as needed Follow cultures Close monitor on telemetry floor Rapid A-fib Continue home metoprolol and Eliquis IV Lopressor as needed Will follow echo Cardio consulted Mild troponin elevation Mostly demand ischemia We will follow serial enzymes and echo History of COPD History of pulmonary hypertension Continue home inhalers Currently on nebs [id number] and as needed Continue oxygen We will monitor Chronic ITP Continue home Doptelet Follow labs Follows with heme-onc Chronic anemia Baseline hemoglobin around 9 Will follow labs Follows with heme-onc Hypertension Currently on metoprolol tartrate and diuretics We will monitor Constipation Stool softeners CKD stage III Present creatinine 1.01 We will follow labs Hypokalemia and hypomagnesia Replaced Follow labs Protein calorie malnutrition Dietitian consult when stable DVT prophylaxis On Eliquis Disposition Telemetry PT OT prior to discharge CODE STATUS full code as per my discussion with the patient History of Present Illness Chief Complaint: Shortness of breath Primary Care Provider: LOLITA Rice 88-year-old female with past medical history significant for chronic respiratory failure with hypoxia currently on home oxygen 3 L, COPD, moderate pulmonary hypertension, hypertension constipation, protein-calorie malnutrition, CKD stage III , chronic ITP, history of nonmelanoma skin cancer presents with shortness of breath and rapid A-fib. Patient says she was doing fine in the morning and in the evening suddenly started feeling short of breath. Then she panicked and felt her heart palpitations. Currently on 4 to 5 L she saturating okay. Able to give her history. Denies any chest pain. Has some mild dry cough. Denies fevers. Denies any headache. Vision is okay. Currently no runny nose. No sore throat. Appetite is okay. No difficulty swallowing. No nausea. No sweating. No abdominal pain. States she is constipated but had a bowel movement today. Denies any blood in the stools or black stools. Normal micturition. Ambulates with a walker. Lives with her son. Recently on November 07 patient was admitted to [facility] with shortness of breath and increasing oxygen requirements and nosebleed and black stools and black stools were thought to be from nosebleed and found to have platelets for 5 in setting of stopping her Doptelet for a week due to elevated platelets of 684. And on November 08 patient was transferred from [facility] to [facility] for severe thrombocytopenia as platelet counts are only 5.After discussing with heme-onc was given IV Methylprednisolone 1000 mg IV daily for 3 days. And continued her home Doptelet. Her platelet count improved at time of discharge to 56. Looks like patient was again admitted to [facility] on November 14, 2023 with a dizziness and hypotension. Received fluids. Patient also found to be in rapid A-fib new onset and discharged on metoprolol and Eliquis. She followed up with cardiology on November 27 and her Lasix dose has been decreased from 40 mg to 20 mg because of low blood pressure and dizziness. Leg swelling is improved. 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 Excision of the scalp/face subcutaneous tumor Family history. . Currently lives with her son. Quit smoking in 1978. Smoked 0.3 packs a day for 5 years. No alcohol use. No drug use. Family history. No family history on file Allergies Allergy/AdvReac Type Severity Reaction Status Date / Time lisinopril AdvReac Intermediate Gastrointestinal Verified 12/05/23 23:46 Upset Home Medications Medication Instructions Recorded Confirmed Type cyanocobalamin (vitamin B-12) 1,000 mcg PO DAILY 05/23/22 12/05/23 History 1,000 mcg tablet albuterol sulfate 90 mcg/actuation 2 puff inhalation Q4 PRN Shortness 06/12/23 12/05/23 History aerosol inhaler Of Breath Or Wheezing avatrombopag 20 mg tablet 20 mg PO QAM 06/12/23 12/05/23 History (Doptelet (30 tab pack)) apixaban 2.5 mg tablet (Eliquis) 2.5 mg PO BID 12/05/23 12/05/23 History cholecalciferol (vitamin D3) 50 50 mcg PO DAILY 12/05/23 12/05/23 History mcg (2,000 unit) capsule (Vitamin D3) fluticasone fur. 100 mcg-umeclid 1 inh inhalation QAM 12/05/23 12/05/23 History 62.5 mcg-vilant 25 mcg inhalat.powder (Trelegy Ellipta) furosemide 20 mg tablet 20 mg PO QAM 12/05/23 12/05/23 History metoprolol tartrate 25 mg tablet 25 mg PO BID 12/05/23 12/05/23 History Past Med/Surg History Problem List (Updated 12/06/23 @ 02:29 by Koffi Bailey MD) SOB (shortness of breath) Hypokalemia (Acute) Hypomagnesemia (Acute) Congestive heart failure (Acute) Anemia (Acute) Hypoxemia (Acute) Atrial fibrillation with rapid ventricular response (Acute) Acute idiopathic thrombocytopenic purpura (Acute) Thrombocytopenia (Acute) Gingival bleeding (Acute) Petechiae (Acute) Social History Smoking Status: Former smoker Hx Alcohol Use: No Hx Substance Use: No Preferred Language: Sinhala Communication Ability: Effective Telecommunications Technician Required: No Beliefs That Will Affect Care: None Current Living Situation: Family Current Living Situation Comment: Lives with son Feels Safe at Home: Yes Safety Concerns: Feels Safe At This Time Assistive Devices: Walker Review of Systems Review of Systems: All systems reviewed & are unremarkable except as noted in HPI & below Physical Exam Physical Exam: General- Not in distress. Thin and frail. Head- atraumatic Eyes- PERRL. ENT- oropharynx clear Neck- supple, no JVD. Lungs- clear to auscultation mild bilateral coarse crackles, no wheezing Heart- irregular rhythm; tachycardia no murmur, no gallop. Abdomen- normal bowel sounds, soft, nontender, no distension Extremities- trace pretibial edema, no erythema seen. Neuro- alert, oriented ; PERRL, no facial palsy; no dysarthria; moves extremities. Results & Data Results & Data Vital Signs (Past 12 Hours) Vital Signs Temp Pulse Resp BP Pulse Ox O2 Del Method O2 Flow Rate 12/05/23 22:49 120 H 127/64 12/05/23 22:27 119 H 12/05/23 22:21 109 H 17 95 Room Air 12/05/23 22:10 88 L 3 12/05/23 22:05 37.1 C 110 H 20 105/53 L 88 L Nasal Cannula 3 Diagnostic Findings Laboratory Results WBC 16.56 K/ul (4.8-10.8) H 12/05/23 23:00 RBC 3.09 M/uL (4.20-5.40) L 12/05/23 23:00 Hgb 8.8 g/dl (12.0-16.0) L 12/05/23 23:00 POC Hgb 9.2 g/dl (12.0-16.0) L 12/05/23 23:02 Hct 28.8 % (37.0-47.0) L 12/05/23 23:00 POC Hct 27 % (37-47) L 12/05/23 23:02 MCV 93.2 fL (80.0-100.0) 12/05/23 23:00 MCH 28.5 pg (25.0-34.0) 12/05/23 23:00 MCHC 30.6 g/dL (32.0-36.0) L 12/05/23 23:00 RDW Std Deviation 55.0 fL (36.4-46.3) H 12/05/23 23:00 RDW Coeff of Dwaine 16.3 % (11.5-14.5) H 12/05/23 23:00 Plt Count 558 K/uL (130-400) H 12/05/23 23:00 MPV 10.1 fL (9.4-12.4) 12/05/23 23:00 Immature Gran % (Auto) 0.8 % 12/05/23 23:00 Neut % (Auto) 82.9 % 12/05/23 23:00 Lymph % (Auto) 10.0 % 12/05/23 23:00 Hamlin % (Auto) 5.5 % 12/05/23 23:00 Eos % (Auto) 0.4 % 12/05/23 23:00 Baso % (Auto) 0.4 % 12/05/23 23:00 Neut # (Auto) 13.74 K/uL (1.40-6.50) H 12/05/23 23:00 Lymph # (Auto) 1.65 K/uL (1.20-3.40) 12/05/23 23:00 Hamlin # (Auto) 0.91 K/uL (0.11-0.59) H 12/05/23 23:00 Eos # (Auto) 0.06 K/uL (0.00-0.50) 12/05/23 23:00 Baso # (Auto) 0.07 K/uL (0.00-0.20) 12/05/23 23:00 Immature Gran # (Auto) 0.13 K/uL (0.01-0.20) 12/05/23 23:00 PT 13.0 Seconds (9.0-12.0) H 12/05/23 23:00 INR 1.2 (0.9-1.1) H 12/05/23 23:00 APTT 31 Seconds (21-31) 12/05/23 23:00 PTT Ratio 1.2 12/05/23 23:00 VBG pH 7.39 (7.36-7.41) 12/05/23 23:00 VBG pCO2 64 mmHg (38-50) H 12/05/23 23:00 VBG pO2 23 mmHg 12/05/23 23:00 VBG HCO3 39 mmol/L 12/05/23 23:00 VBG O2 Saturation < 60.0 % 12/05/23 23:00 VBG Base Excess 11.0 mEq/L 12/05/23 23:00 POC Sodium 141 mmol/L (135-144) 12/05/23 23:02 Sodium 143 mmol/L (136-145) 12/05/23 23:00 POC Potassium 3.4 mmol/L (3.3-5.0) 12/05/23 23:02 Potassium 3.4 mmol/L (3.5-5.1) L 12/05/23 23:00 POC Chloride 96 mmol/L (101-112) L 12/05/23 23:02 Chloride 100 mmol/L (98-107) 12/05/23 23:00 Carbon Dioxide 38 mmol/L (21-32) H 12/05/23 23:00 POC Total CO2 35 mmol/L (24-31) H 12/05/23 23:02 Anion Gap 5 (3-11) 12/05/23 23:00 POC Anion Gap 14.0 mmol/L (16-25) L 12/05/23 23:02 POC BUN 15 mg/dl (7-18) 12/05/23 23:02 BUN 16 mg/dl (6-23) 12/05/23 23:00 Creatinine 1.01 mg/dl (0.6-1.2) 12/05/23 23:00 POC Creatinine 1.0 mg/dl (0.6-1.3) 12/05/23 23:02 Est Cr Clr Drug Dosing 28.2 ml/min 12/05/23 23:00 Est GFR ( Amer) 57.6 ml/min 12/05/23 23:00 Est GFR (Non-Af Amer) 49.7 ml/min 12/05/23 23:00 BUN/Creatinine Ratio 15.8 (10-20) 12/05/23 23:00 Glucose 117 mg/dl (70-99(Fasting)) H 12/05/23 23:00 POC Glucose (other) 120 mg/dl (70-99) H 12/05/23 23:02 Calcium 9.0 mg/dl (8.6-10.3) 12/05/23 23:00 POC Ioniz Calcium Payal 1.14 mmol/l (1.12-1.32) 12/05/23 23:02 Magnesium 1.6 mg/dl (1.7-2.4) L 12/05/23 23:00 Total Bilirubin 0.8 mg/dl (0.2-1.0) 12/05/23 23:00 AST 14 U/L (13-39) 12/05/23 23:00 ALT 7 U/L (7-52) 12/05/23 23:00 Alkaline Phosphatase 53 U/L (34-104) 12/05/23 23:00 Troponin I High Sens 20.2 pg/ml (0-14) H 12/06/23 01:18 B-Natriuretic Peptide 828 pg/ml (0-100) H 12/05/23 23:00 Total Protein 6.0 gm/dl (6.0-8.3) 12/05/23 23:00 Albumin 3.3 gm/dl (3.4-5.0) L 12/05/23 23:00 Globulin 2.7 gm/dl (2.5-4.0) 12/05/23 23:00 Albumin/Globulin Ratio 1.2 (0.9-2) 12/05/23 23:00 Urine Color Yellow 12/06/23 01:22 Urine Appearance Clear (Clear) 12/06/23 01:22 Urine pH 7.0 (4.5-7.5) 12/06/23 01:22 Ur Specific [place] 1.008 (1.000-1.030) 12/06/23 01:22 Urine Protein Negative (Negative) 12/06/23 01:22 Urine Glucose (UA) Negative (Negative) 12/06/23 01:22 Urine Ketones Negative (Negative) 12/06/23 01:22 Urine Blood Negative (Negative) 12/06/23 01:22 Urine Nitrite Negative (Negative) 12/06/23 01:22 Urine Bilirubin Negative (Negative) 12/06/23 01:22 Urine Urobilinogen Negative (Negative) 12/06/23 01:22 Ur Leukocyte Esterase Trace (Negative) H 12/06/23 01:22 Urine WBC (Auto) 0-5 /hpf (0-5) 12/06/23 01:22 Urine RBC (Auto) 0-2 /hpf (0-2) 12/06/23 01:22 U Hyaline Cast (Auto) 3-5 /lpf (0-2) H 12/06/23 01:22 U Epithel Cells (Auto) 3-5 /hpf (0-2) H 12/06/23 01:22 Urine Bacteria (Auto) None Seen (None Seen) 12/06/23 01:22 Adenovirus (PCR) Not Detected (NotDetected) 12/05/23 23:35 B. pertussis DNA (PCR) Not Detected (NotDetected) 12/05/23 23:35 B.parapertussis DNA PCR Not Detected (NotDetected) 12/05/23 23:35 C. pneumoniae DNA (PCR) Not Detected (NotDetected) 12/05/23 23:35 Coronavirus OC43 (PCR) Not Detected (NotDetected) 12/05/23 23:35 Coronavirus HKU1 (PCR) Not Detected (NotDetected) 12/05/23 23:35 Coronavirus 229E (PCR) Not Detected (NotDetected) 12/05/23 23:35 SARS-CoV-2 (PCR) Not Detected (NotDetected) 12/05/23 23:35 Coronavirus NL63 (PCR) Not Detected (NotDetected) 12/05/23 23:35 Human Metapneumovir PCR Not Detected (NotDetected) 12/05/23 23:35 Influenza Type A (PCR) Not Detected (NotDetected) 12/05/23 23:35 Influenza Type B (PCR) Not Detected (NotDetected) 12/05/23 23:35 M. pneumoniae (PCR) Not Detected (NotDetected) 12/05/23 23:35 Parainfluenza 1 (PCR) Not Detected (NotDetected) 12/05/23 23:35 Parainfluenza 2 (PCR) Not Detected (NotDetected) 12/05/23 23:35 Parainfluenza 3 (PCR) Not Detected (NotDetected) 12/05/23 23:35 Parainfluenza 4 (PCR) Not Detected (NotDetected) 12/05/23 23:35 RSV (PCR) Not Detected (NotDetected) 12/05/23 23:35 Entero/Rhino (PCR) Not Detected (NotDetected) 12/05/23 23:35 ECG Additional Comments: ECG. A-fib with rapid ventricle response rate of 130. Nonspecific ST abnormality. QTc 488 Code Status & VTE Plan VTE Prophylaxis Plan VTE Prophylaxis will be ordered: Yes
[2023-12-06] MEDS ORDERED: ACETAMINOPHEN 325 MG TAB PO PRN (02:48)
[2023-12-06] MEDS ORDERED: POLYETHYLENE (MIRALAX) 17 GM PACK PO PRN (02:48)
[2023-12-06] MEDS ORDERED: NITROGLYCERIN SL 0.4 MG/TAB TAB SL PRN (02:48)
[2023-12-06] MEDS ORDERED: LEVALBUTEROL 1.25 MG/3 ML NEB NEB PRN (02:48)
[2023-12-06] MEDS ORDERED: METOPROLOL TARTRATE 1 MG/ML VIAL IV PRN (02:48)
[2023-12-06] MEDS ORDERED: ALBUTEROL HFA 8 GM INHALER INH PRN (02:48)
[2023-12-06] MEDS: cefTRIAXone SODIUM 2,000 MG/50 ML BAG IV STA (03:19)
[2023-12-06] MEDS: DOXYCYCLINE HYCLATE 100 MG in DEXTROSE 5% MINI-B 100 ML IV SCH (03:58)
[2023-12-06] MEDS: LEVALBUTEROL HCL 0.63 MG/3 ML NEB NEB SCH (07:10)
--- NOTE | 2023-12-06 07:34 | CT Scan Report ---
CT angio chest PE protocol CLINICAL HISTORY: PE TECHNIQUE: Multidetector row helical CT of the chest was performed with angiographic protocol. Hanna l and sagittal reformations were obtained. Coronal and sagittal MIPS were obtained from the axial rosa a set and were submitted for review. Automated dose lowering techniques and/or adjustment according to patient size were utilized for this exam. CT DOSE: 246.68 mGy.cm Comparison: Comparison is made to chest radiograph 12/05/2023 FINDINGS: Lungs and pleura: Bronchial wall thickening mosaic attenuation are seen. Heart and pericardium: Cardiomegaly is seen with biatrial enlargement. Vessels: The pulmonary trunk is enlarged measuring 34 mm. No evidence of pulmonary embolus in the lob ar or segmental branches although evaluation is limited by patient motion. Mediastinum and lev: Unremarkable. Chest wall and lower neck: Unremarkable. Abdomen: Unremarkable. Bones: Degenerative changes in the thoracic spine. IMPRESSION: No acute abnormality and in particular no evidence of pulmonary embolus. ACT 112: Negative or not required by law. Electronically signed by: Chaim Balbuena M.D. 12/06/2023 7:33 AM
--- NOTE | 2023-12-06 08:00 | Cardiology Consultation ---
Date of Consultation December 06, 2023 Assessment & Plan (1) Atrial fibrillation with rapid ventricular response: (2) Chronic hypoxic respiratory failure, on home oxygen therapy: Plan Impression: 88 year old female with chronic hypoxic respiratory failure presents with worsening shortness possibly in the setting of COPD exacerbation vs PNA. CXR without pulmonary edema. CT of the chest suggestive of possible PNA. BNP mildly elevated, but within normal limits for age. Volume status appears compensated on exam. AFIB RVR noted on telemetry- rates 100-120s Plan: Acute on chronic hypoxic respiratory failure: Symptoms likely multifactorial given underlying lung disease, chronic anemia, and possible PNA Patient not examining hypervolemic. -Will defer PNA treatment/antibiotics to primary service -Okay to continue home dose Lasix 20 mg PO daily -Given underlying co-morbidities recommend maintaining a hgb goal of >10. AFIB RVR: Rates tachycardic in the 100-120s. Mildly symptomatic with palpitations. -Increase metoprolol tartrate to 25 mg TID -Continue dose reduced Eliquis 2.5 mg BID (reduced for age and weight) -Maintain K goal of 4.0 and mag goal of 2.0; replace as needed -Echo is pending- further recommendations pending results. Patient have have a difficult time maintaining SR given underlying pulmonary disease. Will first proceed with rate control with AFIB. -Of note, patient has not been on Eliquis for a full month yet. No plans for DCCV at this time. Okay to eat from a cardiology standpoint Case discussed with Dr. Doherty. Further recommendations pending assessment. I spent a total of 40 minutes on the date of service in preparation, delivery, and documentation of the care provided to the patient excluding any time spent in the performance of separately billed services. LOLITA Begum Department of Cardiology, [facility] This chart was completed in part utilizing Speech Voice Recognition Software. Grammatical errors, random word insertions, pronoun errors, and incomplete sentences are an occasional consequence of this system due to software limitations, ambient noise, and hardware issues. Any formal questions or concerns about the content, text, or information contained within the body of this dictation should be directly addressed to the provider for clarification. Supervising Physician Co-Signing Physician Notes Attending attestation: Case reviewed with the advanced practitioner. I have personally performed a history and physical examination on the patient. I have reviewed the advanced practitioner's documentation on the date of service referenced in note, and I agree with, and take responsibility for the plan of care. Subjective: Patient tells me she feels subjectively improved in terms of her shortness of breath. At the time of my assessment, atrial fibrillation persisted, ventricular rates improved to the 80 to 90 bpm range at rest. Exam: Cardiovascular: Irregular rhythm, 1/6 systolic murmur, no edema Data: EKG 12/04/2421: 19 and interpret independently: Atrial fibrillation with rapid ventricular spots, 130 bpm, nonspecific repolarization abnormalities. Repeat tracing 12/06/2023 at 6:08 AM: Atrial fibrillation 99 bpm, nonspecific repolarization changes. Echocardiogram performed today revealed low normal LVEF in the range of 50 to 55%, mild MR, mild TR, moderately elevated pulmonary systolic pressure of 57 mmHg, relatively unchanged compared to the recent outpatient echocardiogram performed 11/01/2023 within the [facility] system. Baseline EKG as an outpatient in February, revealed sinus bradycardia 55 bpm with first-degree AV block, IA interval 226 ms at that time Impression/ Plan: Atrial fibrillation Likely multifactorial shortness of breath with underlying oxygen dependent COPD, development of atrial fibrillation -Continue Eliquis 2.5 mg twice daily for stroke prophylaxis, outpatient to furosemide 20 mg daily, Toprol tartrate 25 mg p.o. 3 times .daily I spent a total of 20 minutes coordinating, documenting, and providing care for this patient excluding time spent in the performance of separately billed services or time spent by another provider. Vignesh Doherty DO History of Present Illness Reason for Consultation: Atrial fibrillation RVR Requesting Physician: [facility] hospitalist Attending Physician: Gerald Gill MD History of Present Illness 88-year-old female who presents to [facility] due to symptoms of shortness of breath. Found to be in rapid atrial fibrillation. Concerns for possible CHF versus pneumonia given leukocytosis. Empirically placed on IV Rocephin and Doxy. Given a dose of IV Lasix in the emergency room. Respiratory bio fire was negative. Recently evaluated by LOLITA Rubi in the outpatient cardiology clinic on 11/28/2023. Notes a recent hospitalization on 11/14/2023 at [facility] due to reports of weakness, dizziness and hypotension. Of note she had been discharged from [facility] 2 days prior for acute thrombocytopenia. Patient had denied any chest pain pressure palpitations shortness of breath, and also report improvement in her dizziness after receiving IV fluids. Patient was found to be in atrial fibrillation with RVR new onset received IV fluids continued on metoprolol tartrate and was placed on Eliquis 2.5 mg twice daily. 12/06/2023: Upon entrance into the room patient resting on the edge of the bed. No acute distress. Notes concerns with ongoing dyspnea- notes that this is chronic for her, but has recently worsened. +cough. Chronic orthopnea. No PND or lower extremity edema. Feels tachy-palpitations. attributes this to anxiety-- notes that when she cannot breath she "gets worked up" and her palpitations worsen. No chest pain. No lightheadedness (improved with the reduction in Lasix as an outpatient). Echo: pending Labs: pending Telemetry: AFIB 100-120s I/O: +350 mL Weight: 46.4 kg Outpatient cardiac medications: Eliquis 2.5 mg twice daily Metoprolol tartrate 25 mg twice daily Furosemide 20 mg daily (reduced from 40 mg daily on 11/28/2023) Past medical history: Paroxysmal atrial fibrillation; diagnosed 10/2023 during a hospitalization at [facility] [id number] score of 5 (age 2, female, hypertension, CHF)--Eliquis started 10/2023 Hypertension PACs/SVT Chronic diastolic CHF Chronic ITP Chronic anemia CKD stage III Former tobacco use with underlying COPD Chronic hypoxic respiratory failure on home oxygen, 3 L Moderate pulmonary hypertension Allergies Allergy/AdvReac Type Severity Reaction Status Date / Time lisinopril AdvReac Intermediate Gastrointestinal Verified 12/05/23 23:46 Upset Home Medications Medication Instructions Recorded Confirmed Type cyanocobalamin (vitamin B-12) 1,000 mcg PO DAILY 05/23/22 12/05/23 History 1,000 mcg tablet albuterol sulfate 90 mcg/actuation 2 puff inhalation Q4 PRN Shortness 06/12/23 12/05/23 History aerosol inhaler Of Breath Or Wheezing avatrombopag 20 mg tablet 20 mg PO QAM 06/12/23 12/05/23 History (Doptelet (30 tab pack)) apixaban 2.5 mg tablet (Eliquis) 2.5 mg PO BID 12/05/23 12/05/23 History cholecalciferol (vitamin D3) 50 50 mcg PO DAILY 12/05/23 12/05/23 History mcg (2,000 unit) capsule (Vitamin D3) fluticasone fur. 100 mcg-umeclid 1 inh inhalation QAM 12/05/23 12/05/23 History 62.5 mcg-vilant 25 mcg inhalat.powder (Trelegy Ellipta) furosemide 20 mg tablet 20 mg PO QAM 12/05/23 12/05/23 History metoprolol tartrate 25 mg tablet 25 mg PO BID 12/05/23 12/05/23 History Patient History Social History Smoking Status: Former smoker Hx Alcohol Use: No Hx Substance Use: No Preferred Language: British Communication Ability: Effective Transition Of Care Specialist Required: No Beliefs That Will Affect Care: None Current Living Situation: Family Current Living Situation Comment: Lives with son Feels Safe at Home: Yes Safety Concerns: Feels Safe At This Time Assistive Devices: Walker Physical Exam Constitutional: WD/WN, vitals as above + ill appearing and + thin; no acute distress Eyes: PERRL, conjunctivae normal, anicteric sclerae Neck: normal visual inspection and trachea midline Respiratory: Auscultation: + diminished lung sounds and + rales (BL bases ) Cardiovascular: Rate/Rhythm: + tachycardic and + irregularly irregular Heart Sounds: normal S1, normal S2 and + murmur (faint systolic murmur) Vessels: no JVD Extremities: no edema Gastrointestinal (Abdomen): normal bowel sounds, soft, nontender, no hepatosplenomegaly Percussion/Palpation: abdomen soft; abdomen nontender Skin: no rashes, warm and dry Neurologic: PERRL, EOMI, accommodation nl, no face palsy, no dysarthria Psychiatric: A+Ox3, euthymic affect Results & Data Vital Signs (Past 12 Hours) Vital Signs Temp Pulse Pulse Resp BP BP Pulse Ox 12/06/23 07:10 91 H 20 100 12/06/23 06:32 12/06/23 06:15 36.4 C L 86 26 H 128/77 98 12/06/23 04:30 87 23 123/69 98 12/06/23 04:00 82 22 124/71 95 12/06/23 03:30 88 21 127/81 100 12/06/23 03:29 12/06/23 03:29 86 127/81 98 12/06/23 03:00 98 H 26 H 120/68 95 12/06/23 02:48 12/06/23 02:30 89 24 121/59 L 95 12/06/23 02:23 87 12/06/23 01:33 93 H 120/77 12/06/23 01:30 108 H 28 H 120/77 94 12/06/23 01:00 95 H 24 97/55 L 97 12/06/23 00:30 98 H 30 H 122/73 94 12/06/23 00:00 98 H 29 H 114/72 95 12/05/23 23:30 109 H 35 H 127/69 94 12/05/23 23:00 104 H 37 H 129/76 95 12/05/23 22:49 120 H 127/64 12/05/23 22:27 119 H 12/05/23 22:21 109 H 17 95 12/05/23 22:10 88 L 12/05/23 22:05 37.1 C 110 H 20 105/53 L 88 L Pulse Ox O2 Del Method O2 Del Method O2 Flow Rate O2 Flow Rate 12/06/23 07:10 Nasal Cannula 3 12/06/23 06:32 Nasal Cannula 3 12/06/23 06:15 Nasal Cannula 5 12/06/23 04:30 Nasal Cannula 4 12/06/23 04:00 Nasal Cannula 4 12/06/23 03:30 Nasal Cannula 4 12/06/23 03:29 Nasal Cannula 4 12/06/23 03:29 Nasal Cannula 4 12/06/23 03:00 Nasal Cannula 4 12/06/23 02:48 98 Nasal Cannula 4 12/06/23 02:30 Nasal Cannula 4 12/06/23 02:23 12/06/23 01:33 12/06/23 01:30 Nasal Cannula 4 12/06/23 01:00 Nasal Cannula 4 12/06/23 00:30 Nasal Cannula 4 12/06/23 00:00 Nasal Cannula 4 12/05/23 23:30 Nasal Cannula 4 12/05/23 23:00 Nasal Cannula 4 12/05/23 22:49 12/05/23 22:27 12/05/23 22:21 Room Air 05/14/24 22:10 3 12/05/23 22:05 Nasal Cannula 3
[2023-12-06] MEDS ORDERED: DOCUSATE SODIUM 100 MG CAP PO PRN (08:05)
--- NOTE | 2023-12-06 08:11 | XRay Report ---
XR chest 1V portable CLINICAL HISTORY: Dyspnea TECHNIQUE: Single frontal radiograph of the chest was obtained. Comparison: Comparison is made to chest radiograph 06/12/2023 FINDINGS: No lines and tubes are seen. Cardiomegaly is noted. Bronchiectasis is seen without evidence of airspa ce opacities. No evidence of pleural effusion or pneumothorax. IMPRESSION: No acute chest disease. ACT 112: Negative or not required by law. Electronically signed by: Chaim Balbuena M.D. 12/06/2023 8:10 AM
[2023-12-06 08:42] LABS: Basophils # (auto) 0.07 K/uL (0.00-0.20); Basophils % (auto) 0.4 %; Eosinophils # (auto) 0.08 K/uL (0.00-0.50); Eosinophils % (auto) 0.5 %; Hemoglobin 8.9 g/dl (12.0-16.0); Immature Granulocytes # (auto) 0.15 K/uL (0.01-0.20); Immature Granulocytes % (auto) 0.9 %; Lymphocytes # (auto) 2.37 K/uL (1.20-3.40); Mean Corpuscular Hemoglobin 28.6 pg (25.0-34.0); Mean Corpuscular Hgb Conc 30.7 g/dL (32.0-36.0); Mean Corpuscular Volume 93.2 fL (80.0-100.0); Mean Platelet Volume 10.1 fL (9.4-12.4); Monocytes # (auto) 1.11 K/uL (0.11-0.59); Monocytes % (auto) 6.6 %; Neutrophils # (auto) 13.15 K/uL (1.40-6.50); Neutrophils % (auto) 77.6 %; Platelet Count 703 K/uL (130-400); RDW Coefficient of Variation 16.5 % (11.5-14.5); RDW Standard Deviation 55.8 fL (36.4-46.3); Red Blood Count 3.11 M/uL (4.20-5.40); White Blood Count 16.93 K/ul (4.8-10.8)
[2023-12-06 09:00] LABS: BUN Creatinine Ratio 16.1 (10-20); Creatinine Clr Calc Pharmacy 30.6 ml/min; Est GFR (African American) 63.6 ml/min; Est GFR (Non-African American) 54.9 ml/min; Magnesium 2.1 mg/dl (1.7-2.4); Potassium 4.1 mmol/L (3.5-5.1)
[2023-12-06] MEDS ORDERED: METOPROLOL TARTRATE 25 MG TAB PO SCH (09:00)
[2023-12-06] MEDS ORDERED: NON-FORMULARY MEDICATION (Fluticasone-Umeclidin-Vilanter [Trelegy Ellipta] 100-62.5-25 mcg INH SCH (09:00)
[2023-12-06 09:04] LABS: Troponin I High Sensitivity 20.7 pg/ml (0-14)
[2023-12-06] MEDS: CYANOCOBALAMIN (B-12) 500 MCG TABLET PO SCH (09:58)
[2023-12-06] MEDS: METOPROLOL TARTRATE 25 MG TAB PO SCH (09:58)
[2023-12-06] MEDS: CHOLECALCIFEROL 25 MCG (1000 UNITS) TAB PO SCH (09:59)
[2023-12-06] MEDS: FUROSEMIDE 20 MG TAB PO SCH (09:59)
[2023-12-06] MEDS: UMECLIDINIUM/VILANTEROL 62.5/25MCG 7 PUFFS/INHALER INH SCH (09:59)
[2023-12-06] MEDS: APIXABAN 2.5 MG TAB PO SCH (09:59)
[2023-12-06] MEDS: FLUTICASONE FUROATE 100MCG 14 PUFFS/INHALER INH SCH (10:00)
--- NOTE | 2023-12-06 11:54 | Electrocardiogram Report ---
Test Reason : Blood Pressure : / mmHG Vent. Rate : 130 BPM Atrial Rate : 000 BPM P-R Int : 000 ms QRS Dur : 086 ms QT Int : 332 ms P-R-T Axes : 000 079 065 degrees QTc Int : 488 ms Atrial fibrillation with rapid ventricular response Nonspecific ST abnormality Abnormal ECG When compared with ECG of 12-JUN-2023 16:39, Atrial fibrillation has replaced Sinus rhythm Vent. rate has increased BY 52 BPM Criteria for Anterior infarct are no longer Present Nonspecific T wave abnormality now evident in Inferior leads Confirmed by Kostas Huynh ([id number]) on 12/06/2023 11:53:56 AM Referred By: REFERRED SELF Confirmed By:Raman Huynh
--- NOTE | 2023-12-06 11:57 | Electrocardiogram Report ---
Test Reason : Blood Pressure : / mmHG Vent. Rate : 099 BPM Atrial Rate : 326 BPM P-R Int : 000 ms QRS Dur : 082 ms QT Int : 348 ms P-R-T Axes : 000 078 052 degrees QTc Int : 446 ms Poor data quality, interpretation may be adversely affected Atrial fibrillation Abnormal ECG When compared with ECG of 05-DEC-2023 22:19, (unconfirmed) Nonspecific T wave abnormality no longer evident in Inferior leads Confirmed by Kostas Huynh ([id number]) on 12/06/2023 11:57:05 AM Referred By: REFERRED SELF Confirmed By:Raman Huynh
--- NOTE | 2023-12-06 16:02 | Hospitalist Progress Note ---
Date of Service December 06, 2023 Assessment & Plan (1) SOB (shortness of breath): Plan: 88-year-old female with past medical history significant for chronic respiratory failure with hypoxia currently on home oxygen 3 L, COPD, moderate pulmonary hypertension, hypertension constipation, protein-calorie malnutrition, CKD stage III , chronic ITP, history of nonmelanoma skin cancer presents with shortness of breath and rapid A-fib. Patient says she was doing fine in the morning and in the evening suddenly started feeling short of breath. Then she panicked and felt her heart palpitations. Currently on 4 to 5 L she saturating okay. Able to give her history. Denies any chest pain. Has some mild dry cough. Denies fevers. Denies any headache. Vision is okay. Currently no runny nose. No sore throat. Appetite is okay. No difficulty swallowing. No nausea. No sweating. No abdominal pain. States she is constipated but had a bowel movement today. Denies any blood in the stools or black stools. Normal micturition. Ambulates with a walker. Lives with her son. Recently on November 07 patient was admitted to [facility] with shortness of breath and increasing oxygen requirements and nosebleed and black stools and black stools were thought to be from nosebleed and found to have platelets for 5 in setting of stopping her Doptelet for a week due to elevated platelets of 684. And on November 08 patient was transferred from [facility] to [facility] for severe thrombocytopenia as platelet counts are only 5.After discussing with heme-onc was given IV Methylprednisolone 1000 mg IV daily for 3 days. And continued her home Doptelet. Her platelet count improved at time of discharge to 56. Looks like patient was again admitted to [facility] on November 14, 2023 with a dizziness and hypotension. Received fluids. Patient also found to be in rapid A-fib new onset and discharged on metoprolol and Eliquis. She followed up with cardiology on November 27 and her Lasix dose has been decreased from 40 mg to 20 mg because of low blood pressure and dizziness. Leg swelling is improved. Acute on chronic respiratory failure with hypoxia and hypercarbia Likely multifactorial secondary to A-fib RVR, COPD Chronic oxygen dependency--on 3 L at baseline Elevated BNP -ECHO: No regional wall motion abnormality. A-fib RVR during echo. EF 50 to 55%. Right ventricle is mildly dilated. Right ventricular systolic function is mildly reduced. Left atrium is mildly dilated. Mild mitral and tricuspid regurgitation. Pulmonary artery pressure estimated to be 57 mmHg. -Chest CTA:No acute abnormality and in particular no evidence of pulmonary embolus. -- Titrate oxygen to keep saturation 88 to 92% Continue home inhalers, Lasix Nebs as needed A-fib RVR Metoprolol tartrate increased to 25 3 times daily On Eliquis for anticoagulation Replace electrolytes as needed Appreciate cardiology input Monitor Acute bronchitis CTA showed no signs of pneumonia Bio fire negative Normal procalcitonin Empirically on antibiotics Transition to p.o. antibiotics as able Mild troponin elevation Likely demand ischemia secondary to A-fib RVR Echo showed no wall motion abnormality H/o COPD H/o Pulmonary hypertension Continue home inhalers Chronic ITP Continue home Doptelet Monitor platelet count Follows with heme-onc Chronic anemia Baseline hemoglobin around 9 Monitor CBC Hypertension Continue metoprolol Monitor Constipation Continue bowel regimen CKD stage III Cr at baseline Monitor renal function Hypokalemia Hypomagnesia Replace and monitor Severe protein calorie malnutrition Dietitian consulted DVT Px: Eliquis Code Status Full Code Admission and Anticipated Discharge Date Admission Date: December 06, 2023 Subjective Patient is seen and examined at bedside States feeling better today Less dyspnea today Admits to have cough with some phlegm Denies any chest pain, nausea, vomiting, abdominal pain No other complaints Review of Systems Review of Systems: All systems reviewed & are unremarkable except as noted in Subjective Physical Exam Physical Exam: Physical Exam: Vitals signs as noted above General Appearance:Thin, frail, no apparent distress Head: normocephalic, Atraumatic Eyes: normal inspection, EOMI Neck: supple, Trachea midline Respiratory/Chest: Decreased breath sounds, basal Rales, No accessory muscle use Cardiovascular: Irregularly irregular, + murmur, + tachycardia Abdomen/GI:Soft, Non tender, Bowel sounds present Extremities/Musculoskeletal:normal inspection, + pedal edema Neurologic/Psych:AAOX3, grossly no focal neurological deficits Skin: normal color, warm Results & Data Results & Data Vital Signs (Past 12 Hours) Vital Signs Temp Pulse Pulse Resp BP BP BP 12/06/23 15:11 36.6 C 83 17 114/56 L 12/06/23 14:28 88 18 12/06/23 11:36 36.4 C L 80 19 113/52 L 12/06/23 10:49 81 18 12/06/23 08:13 36.3 C L 96 H 18 141/76 H 12/06/23 08:00 12/06/23 07:10 91 H 20 12/06/23 06:32 12/06/23 06:15 36.4 C L 86 26 H 128/77 12/06/23 04:30 87 23 123/69 12/06/23 04:00 82 22 124/71 Pulse Ox O2 Del Method O2 Flow Rate 12/06/23 15:11 99 Nasal Cannula 2 12/06/23 14:28 97 Nasal Cannula 3 12/06/23 11:36 98 Nasal Cannula 2 12/06/23 10:49 100 Nasal Cannula 3 12/06/23 08:13 98 Nasal Cannula 2 12/06/23 08:00 Nasal Cannula 3 12/06/23 07:10 100 Nasal Cannula 3 12/06/23 06:32 Nasal Cannula 3 12/06/23 06:15 98 Nasal Cannula 5 12/06/23 04:30 98 Nasal Cannula 4 12/06/23 04:00 95 Nasal Cannula 4 Laboratory Results Short CBC 12/05/23 12/06/23 Range/Units 23:00 08:16 WBC 16.56 H 16.93 H (4.8-10.8) K/ul Hgb 8.8 L 8.9 L (12.0-16.0) g/dl Hct 28.8 L 29.0 L (37.0-47.0) % Plt Count 558 H 703 H (130-400) K/uL BMP 12/05/23 12/06/23 23:00 08:16 Sodium 143 145 Potassium 3.4 L 4.1 D Chloride 100 99 Carbon Dioxide 38 H 42 H* BUN 16 15 Creatinine 1.01 0.93 Glucose 117 H 97 Calcium 9.0 9.0 Liver Function 12/05/23 Range/Units 23:00 Total Bilirubin 0.8 (0.2-1.0) mg/dl AST 14 (13-39) U/L ALT 7 (7-52) U/L Alkaline Phosphatase 53 (34-104) U/L Albumin 3.3 L (3.4-5.0) gm/dl Urine 12/06/23 Range/Units 01:22 Urine Color Yellow Urine Appearance Clear (Clear) Urine pH 7.0 (4.5-7.5) Ur Specific Colman 1.008 (1.000-1.030) Urine Protein Negative (Negative) Urine Glucose (UA) Negative (Negative)
[2023-12-06] MEDS: DOXYCYCLINE HYCLATE 100 MG CAP PO SCH (20:14)
--- OUTSIDE RECORDS SUMMARY | 2023-12-06 23:28 | External Medical Summary | Summary of Care ---
Author Name Unknown Organization [facility] Address [address] [place] [address] Phone [phone] Care Team Providers Care Box Office Attendant Name Role Phone Toshia Reynaga DO Primary Care Provider [phone] Reason for Visit * Reason Onset Date Comments Advice 11/14/2023 Encounter Details Date Type Department Care Team (Late st Contact Info) Description 11/14/2023 Telephone Family Practice [facility] [address] [facility] [place] [address] Toshia Reynaga DO [address] [facility] [place] [address] Advice Allergies Active Allergy Reactions Criticality Noted Date Comments Lisinopril Other (Please comment) 05/06/2022 Burning in throat documented as of this encounter (statuses as of 12/01/2023) Medications Medication Sig Dispensed Refills Start Date End Date Status Cyanocobalamin 1000 MCG Oral Tablet Take 1 Tablet by mouth in the morning. 0 Active Vitamin D3 125 MCG (5000 UT) Oral Capsule Take 1 Capsule by mouth in the morning. 0 Active Polyethylene Glycol 3350 17 GM/SCOOP Oral Powder (MiraLax)Indicatio ns:Constipation, unspecified constipation type Take by mouth 17 g as needed for Constipation. Dissolve one heaping tablespoon in 8 ounces of water or juice. 507 g 3 04/25/2022 Active Acetaminophen 500 MG Oral Tablet (Tylenol) Take 1 Tablet by mouth every 6 hours as needed. 0 Active Spacer/Aero-Holdin g Chambers Device Use with inhaler. 1 Each 0 09/12/2023 Active Albuterol Sulfate (2.5 MG/3ML) 0.083% Inhalation Nebulization Solution (Proventil) Inhale 1 Vial via nebulizer every 4 hours as needed for Wheezing. 3 mL 1 09/12/2023 Active Albuterol Sulfate HFA 108 (90 Base) MCG/ACT Inhalation Aerosol SolutionIndication s:COPD, very severe (HCC) Inhale 2 Puffs by mouth every 4 hours as needed for Cough, Shortness of Breath or Wheezing. 54 g 3 10/12/2023 Active Trelegy Ellipta 100-62.5-25 MCG/ACT Aerosol Powder Breath Activated (Fluticasone-Umecl idinium-Vilanterol ) Inhale 1 Puff by mouth in the morning. 180 Blister Dosing Unit 1 10/12/2023 Active Furosemide 40 MG Oral Tablet (Lasix) Take 1 Tablet by mouth daily. 90 Tablet 3 10/11/2023 Active Avatrombopag Maleate 20 MG Oral Tablet Take 1 tablet by mouth in the morning. 30 Tablet 5 11/13/2023 Active Losartan Potassium 100 MG Oral Tablet (Cozaar)Indication s:HTN, goal below 140/90 Take 1 Tablet by mouth in the morning. 90 Tablet 2 08/02/2023 4 Discontinue d(Medicatio n List Clean Up) amLODIPine Besylate 5 MG Oral Tablet (Norvasc)Indicatio ns:HTN, goal below 140/90 Take 1 Tablet by mouth in the morning. 90 Tablet 3 10/11/2023 4 Discontinue d(Medicatio n List Clean Up) Hospital, Clinic, or Other Facility Administered Medication Ordered Dose Route Frequency Start Date End Date Status Albuterol Sulfate (Proventil) (2.5 MG/3ML) 0.083% inhalation solution 2.5 mgIndications:COPD, severity to be determined (HCC) 2.5 mg NEBULIZER ONCE PRN 02/17/2023 02/17/2024 Active documented as of this encounter (statuses as of 12/01/2023) Active Problems Problem Noted Date Diagnosed Date Chronic respiratory failure with hypoxia 024 Moderate pulmonary hypertension 09/18/2023 COPD, group B, by GOLD 2017 classification 11/13 /2023 Overview: Per COPD GOLD Classification Hx of nonmelanoma skin cancer 12/01/2022 Overview: basal cell carcinoma (L superior parietal scalp 2018), R medial inferior forehead 12/13, L inferior forehead 12/13, R post auricular region 12/13) Stage 3a chronic kidney disease 11/07/2022 Protein-calorie malnutrition 06/27/2022 HTN, goal below 140/90 04/25/2022 Chronic ITP (idiopathic thrombocytopenia) 2021 Constipation 04/25/2022 documented as of this encounter (statuses as of 12/01/2023) Resolved Problems Problem Noted Date Diagnosed Date Resolved Date Chronic obstructive pulmonary disease 05/11/2023 06/08/2023 Overview: Per COPD GOLD Classification documented as of this encounter (statuses as of 12/01/2023) Immunizations No known immunizationsdocumented as of this encounter Social History Tobacco Use Types Packs/Day Years Used Date Smoking Tobacco: Former Cigarettes 0.3 5 1 974 - 1979 Passive Smoke Exposure: Never Smokeless Tobacco: Never Alcohol Use Standard Drinks/Week Comments Never 0 (1 standard drink = 0.6 oz pur e alcohol) Sex and Gender Information Value Date Recorded Sex Assigned at Not on file Gender Identity Not on file Sexual Orientation Not on file Job Start Date Occupation Industry Not on file Not on file Not on file documented as of this encounter Miscellaneous Notes * Telephone Encounter - Toshia Reynaga DO - 11/14/2023 12:35 PM EDT Agree Thank you * Telephone Encounter - Teodora Johnson RN - 11/14/2023 12:22 PM EDT Call from home health nurse, Susannah. Pt was in in [facility] for thrombocytopenia D/C on Monday. Today felt like she was going to pass out and fell-doesn't think that she hit her head BP 80/40 which is not typical for pt. Pt just doesn't "feel right" Recommended that pt be taken to ER * Telephone Encounter - Jyoti Lopez OSA - 11/14/2023 12:20 PM EDT Transferred to Teodora documented in this encounter Plan of Treatment Upcoming Encounters Date Type Department Care Team (Late st Contact Info) Description 12/04/2023 9:00 AM EDT Pharmacy Pharmacy Hematology Oncology [facility] [address] [place] [address] [facility], [facility] Clinic Hem/Onc [address] [place] [address] 12/04/2023 10:30 AM EDT Laboratory [facility], [facility] [address] [facility] [phone] [facility] 132 [facility] [place] [address] 01/03/2024 11:00 AM EDT Office Visit Hematology/Oncology [facility] [address] [facility] [place] [phone] Ama Maldonado CRNP [address] [place] [address] 01/24/2024 12:40 PM EDT Office Visit Family Practice [facility] [address] [place] [address] Toshia Reynaga DO [address] [place] [address] 03/11/2024 10:00 AM EDT Office Visit Cardiology, [facility] [address] [place] [address] Huong Oseguera CRNP [address] [place] [address] Health Maintenance Due Date Last Done Comments Pneumococcal Vaccine: 65+ Years (1 of 2 - PCV) 09/29/1941 Depression Screening 1947 DTaP,Tdap,and Td Vaccines (1 - Tdap) 09/29/1954 Zoster Vaccines (1 of 2) 09/29/1985 COVID-19 Vaccine (1 - 2022- season) 2023 CKD PHOS USE SMARTSET 40273 11/11/2023 11/10/2022 Influenza Vaccine (FLU shot) (Season Ended) 2024 Albumin/Creatinine Ratio 05/11/2024 05/11/2023, 07/24 O2 ASSESSMENT COMPLETED IN PAST YEAR FOR COPD 10/30/2024 10/31/2023 CKD HGB USE SMARTSET 72981 11/26/202411/26, 11/27/2023, 11/22/2023, Additional history exists DXA Scan 12/07/2032 12/07/2022 Alpha-1 Antitrypsin Completed 07/26/2023 GARDASIL-HPV IMMUNIZATION SERIES Aged Out No longer eligible based on patient's age to complete this topic Hepatitis B Aged Out No longer eligi ble based on patient's age to complete this topic MENINGOCOCCAL (MENACTRA/MENVEO) Aged Out No longer eligible based on patient's age to complete this topic documented as of this encounter Medical Devices Not on filedocumented as of this encounter Care Teams Box Office Attendant Relationship Specialty Start Date End Date Toshia Reynaga DO [address] [place] [place] [address] PCP - General Family Medicine 12/07/22 documented as of this encounter
--- OUTSIDE RECORDS SUMMARY | 2023-12-06 23:28 | External Medical Summary ---
Author Name Unknown Address Unknown Organization K0[facility] [address] [facility] [address] [place] [address] Laboratory Report Ordering Provider Test Date Status RAMU VASQUES 12/04/2023 10:37:06 Final Observation Date Value Abnormality Reference (Units ) Status WBC, Total 12/04/2023 10:37:06 8.04 4.00-10.8 0 (K/uL) Final RBC 12/04/2023 10:37:06 2.92 3.85-5.15 (M/uL) Final Hemoglobin 12/04/2023 10:37:06 8.4 Below low normal 12 .0-15.3 (g/dL) Final HCT 12/04/2023 10:37:06 28.0 Below low normal 36. 0-45.2 (%) Final MCV 12/04/2023 10:37:06 95.9 81.5-97.5 (fL) Final MCH 12/04/2023 10:37:06 28.8 27.0-34.0 (pg) Final MCHC 12/04/2023 10:37:06 30.0 32.0-36.0 (g/dL) Final RDW 12/04/2023 10:37:06 16.5 11.5-15.5 (%) Final Platelets 12/04/2023 10:37:06 633 Above high normal 14 0-400 (K/uL) Final MPV 12/04/2023 10:37:06 9.9 6.6-11.1 ( fL) Final Performing Location LABORATORY [facility] [address] [place] [address]
--- OUTSIDE RECORDS SUMMARY | 2023-12-06 23:28 | External Medical Summary ---
Author Name Unknown Address Unknown Organization K0G:LABORATORY [place] [address] [place] [address] Laboratory Report Ordering Provider Test Date Status RAMU VASQUES 12/04/2023 10:37:06 Final Observation Date Value Abnormality Reference (Units ) Status SYNC LEUKOCYTES IN BLOOD BY AUTOMATED COUNT 12/04/2023 10:37:06 8.04 4.00-10.80 (K/uL) Final Segs 12/04/2023 10:37:06 65.9 40.0-75.0 (%) Final Lymphs % 12/04/2023 10:37:06 21.1 18.0-42.0 (%) Final Monos 12/04/2023 10:37:06 10.0 1.0-11.0 (%) Final Eosinophils 12/04/2023 10:37:06 2.4 0.0-6.0 (%) Final Basos 12/04/2023 10:37:06 0.6 0.0-2.0 (%) Final Absolute Segs 12/04/2023 10:37:06 5.30 1.80-7.70 (K/uL) Final Lymphs, absolute 12/04/2023 10:37:06 1.70 1.00-4.80 (K/ul) Final Monos, Abs 12/04/2023 10:37:06 0.80 0.00-1.10 (K/uL) Final Eos, Abs 12/04/2023 10:37:06 0.19 0.00-0.70 (K/uL) Final Basos, Abs 12/04/2023 10:37:06 0.05 0.00-0.20 (K/uL) Final Performing Location [facility] [place] [address]
--- OUTSIDE RECORDS SUMMARY | 2023-12-06 23:28 | External Medical Summary | Summary of Care ---
Author Name Unknown Organization [facility] Address [address] [place] [address] Phone [phone] Care Team Providers Care Leasing Director Name Role Phone Toshia Reynaga DO Primary Care Provider [phone] Reason for Visit * Reason Comments Medication Management Encounter Details Date Type Department Care Team (Late st Contact Info) Description 12/04/2023 9:00 AM EDT Pharmacy Pharmacy Hematology Oncology [facility] [address], [place] [phone] [facility], [facility] Clinic Hem/Onc [address], [place] [phone] Chronic ITP (idiopathic thrombocytopenia) ([facility])* Allergies Active Allergy Reactions Criticality Noted Date Comments Lisinopril Other (Please comment) 05/06/2022 Burning in throat documented as of this encounter (statuses as of 12/04/2023) Medications Medication Sig Dispensed Refills Start Date End Date Status Cyanocobalamin 1000 MCG Oral Tablet Take 1 Tablet by mouth in the morning. 0 Active Vitamin D3 125 MCG (5000 UT) Oral Capsule Take 1 Capsule by mouth in the morning. 0 Active Polyethylene Glycol 3350 17 GM/SCOOP Oral Powder (MiraLax)Indication s:Constipation, unspecified constipation type Take by mouth 17 g as needed for Constipation. Dissolve one heaping tablespoon in 8 ounces of water or juice. 507 g 3 04/25/2022 Active Acetaminophen 500 MG Oral Tablet (Tylenol) Take 1 Tablet by mouth every 6 hours as needed. 0 Active Spacer/Aero-Holding Chambers Device Use with inhaler. 1 Each 0 09/12/2023 Active Albuterol Sulfate (2.5 MG/3ML) 0.083% Inhalation Nebulization Solution (Proventil) Inhale 1 Vial via nebulizer every 4 hours as needed for Wheezing. 3 mL 1 09/12/2023 Active Albuterol Sulfate HFA 108 (90 Base) MCG/ACT Inhalation Aerosol SolutionIndications :COPD, very severe (HCC) Inhale 2 Puffs by mouth every 4 hours as needed for Cough, Shortness of Breath or Wheezing. 54 g 3 10/12/2023 Active Trelegy Ellipta 100-62.5-25 MCG/ACT Aerosol Powder Breath Activated (Fluticasone-Umecli dinium-Vilanterol) Inhale 1 Puff by mouth in the morning. 180 Blister Dosing Unit 1 10/12/2023 Active Furosemide 40 MG Oral Tablet (Lasix) Take 1 Tablet by mouth daily. 90 Tablet 3 10/11/2023 Active Avatrombopag Maleate 20 MG Oral Tablet Take 1 tablet by mouth in the morning. 30 Tablet 5 11/13/2023 Active Eliquis 2.5 MG Oral Tablet Take 1 Tablet by mouth in the morning and 1 Tablet before bedtime. 0 11/19/2023 Active Metoprolol Tartrate 25 MG Oral Tablet (Lopressor) Take 1 Tablet by mouth in the morning and 1 Tablet before bedtime. 0 11/19/2023 Active Hospital, Clinic, or Other Facility Administered Medication Ordered Dose Route Frequency Start Date End Date Status Albuterol Sulfate (Proventil) (2.5 MG/3ML) 0.083% inhalation solution 2.5 mgIndications:COPD, severity to be determined (HCC) 2.5 mg NEBULIZER ONCE PRN 02/17/2023 02/17/2024 Active documented as of this encounter (statuses as of 12/04/2023) Active Problems Problem Noted Date Diagnosed Date Chronic respiratory failure with hypoxia 024 Moderate pulmonary hypertension 09/18/2023 COPD, group B, by GOLD 2017 classification 06/05 Overview: Per COPD GOLD Classification Hx of nonmelanoma skin cancer 12/01/2022 Overview: basal cell carcinoma (L superior parietal scalp 2018), R medial inferior forehead 12/13, L inferior forehead 12/13, R post auricular region 12/13) Stage 3a chronic kidney disease 11/07/2022 Protein-calorie malnutrition 06/27/2022 HTN, goal below 140/90 04/25/2022 Chronic ITP (idiopathic thrombocytopenia) 2021 Constipation 04/25/2022 documented as of this encounter (statuses as of 12/04/2023) Resolved Problems Problem Noted Date Diagnosed Date Resolved Date Chronic obstructive pulmonary disease 05/11/2023 06/08/2023 Overview: Per COPD GOLD Classification documented as of this encounter (statuses as of 12/04/2023) Immunizations No known immunizationsdocumented as of this [...] on file documented as of this encounter Progress Notes * Winter Casiano, [facility] - 12/04/2023 11:31 AM EDT MEDICATION THERAPY MANAGEMENT AVATROMBOPAG TREATMENT PROGRESS NOTE Edilma Kennedy [phone] Patient Phone Numbers son Christian Son: Christian Communication: Left message Treatment: Medication: Avatrombopag (Doptelet) Indication/Staging/Diagnosis Code: ITP/D69.3 Dose: 20mg daily ( 09/25/23) Administration: with food Start Date: November 2019 Primary Specification Writer/Oncologist: Dr. Gabriel Choi Additional therapy: Rutiximab x 2 Dose adjustment / medication hold: 09/14/23-09/24/23: avatrombopag held due to thrombocytosis (PLT 919K) 09/25/23: resume avatrombopag at 20mg daily 10/25/23-11/06/23: avatrombopag held due to thrombocytosis (PLT 684K) Interval History: Pt admitted to [facility] 05/23/22 for bleeding and PLT < 10K and transferred to [facility] 05/24/22 and discharged 06/18/22 Per OV 03/09/23, lab monitoring extended to monthly Admitted to [facility] 09/01/23-09/06/23 for CHF/COPD exacerbation - avatrombopag continued during admission despite PLT 718K 09/01/23 Admitted to [facility] 10/18/23-10/22/23 for COPD exacerbation Admitted to [facility] 11/09/23-11/12/23 for thrombocytopenia and received methylprednisolone and increased dose of avatrombopag 40mg daily Admitted to [facility] 11/15/23-11/19/23 for symptomatic a fib and discharged on apixaban Administered avatrombopag 40mg daily while admitted Per TE 11/17/23, pt okay to receive apixaban given elevated PLT Per TE 11/17/23 addendum 11/21/23, pt to keep current Dr. Choi follow up but needs to obtain weekly cbcd Changes to medication list since last visit? No Assessment and plan: PLT elevated but declining WBC/ANC declining to WNL All other labs stable Continue current avatrombopag dose Repeat labs in 1 week Assessment of compliance: N/A Dose adjustment needed based on lab or adverse drug reaction? No Follow up: 1 week Winter Casiano, PharmD, BCOP Clinical Pharmacist, [facility] Oral Chemotherapy [facility] 12/04/2023, 11:34 AM Pertinent labs: Latest Reference Range & Units 11/27/23 14:30 12/04/23 10:37 WBC 4.00 - 10.80 K/uL 12.50 (H) 8.04 RBC 3.85 - 5.15 M/uL 2.98 2.92 HGB 12.0 - 15.3 g/dL 8.7 (L) 8.4 (L) HCT 36.0 - 45.2 % 28.3 (L) 28.0 (L) MCV 81.5 - 97.5 fL 95.0 95.9 MCH 27.0 - 34.0 pg 29.2 28.8 MCHC 32.0 - 36.0 g/dL 30.7 30.0 RDW 11.5 - 15.5 % 16.2 16.5 PLT 140 - 400 K/uL 810 (H) 633 (H) MPV 6.6 - 11.1 fL 9.8 9.9 CBC WITH WBC DIFFERENTIAL Rpt ! Rpt ! Absolute Neutrophils 1.80 - 7.70 K/uL 9.96 (H) 5.30 Time Spent on Encounter: 6 - 10 minutes Encounter Group: Hematology Encounter Interventions Item Category: Oral Chemotherapy Other: Avatrombopag Problem/Rationale: Effectiveness: Needs additional monitoring - Medication Requires monitoring Safety: Needs additional monitoring - Medication Requires monitoring Pharmacist Intervention(s): Lab monitoring Magnitude of Intervention: Monitoring with direction (Level 1) documented in this encounter Plan of Treatment Upcoming Encounters Date Type Department Care Team (Late st Contact Info) Description 12/11/2023 9:00 AM EDT Pharmacy Pharmacy Hematology Oncology [facility] [address] [place] [address] [facility], [facility] Clinic Hem/Onc [address] [place] [address] 01/03/2024 11:00 AM EDT Office Visit [facility]ematology[facility] [address] [facility] [phone] Ama Maldonado CRNP [address] [place] [address] 01/24/2024 12:40 PM EDT Office Visit Family Practice [facility] [address] [place] [place] [address] Toshia Reynaga DO [address] [place] [place] [address] 03/11/2024 10:00 AM EDT Office Visit Cardiology, [facility] [address] [place] [phone] Huong Oseguera CRNP [address] [place] [address] Health Maintenance Due Date Last Done Comments Pneumococcal Vaccine: 65+ Years (1 of 2 - PCV) 09/29/1941 Depression Screening 1947 DTaP,Tdap,and Td Vaccines (1 - Tdap) 09/29/1954 Zoster Vaccines (1 of 2) 09/29/1985 COVID-19 Vaccine (1 - 2022- season) 2023 CKD PHOS USE SMARTSET 34962 11/11/2023 11/10/2022 Influenza Vaccine (FLU shot) (Season Ended) 2024 Albumin/Creatinine Ratio 05/11/2024 05/11/2023, 07/24 O2 ASSESSMENT COMPLETED IN PAST YEAR FOR COPD 10/30/2024 10/31/2023 CKD HGB USE SMARTSET 98954 12/03/202412/03, 12/04/2023, 11/27/2023, Additional history exists DXA Scan 12/07/2032 12/07/2022 [...] Not on filedocumented as of this encounter Visit Diagnoses Diagnosis 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
--- OUTSIDE RECORDS SUMMARY | 2023-12-06 23:28 | External Medical Summary | Summary of Care ---
Author Name Unknown Organization [facility] Address [address] [place] [address] Phone [phone] Care Team Providers Care County Extension Agent Name Role Phone Toshia Reynaga DO Primary Care Provider [phone] Reason for Visit * Reason Onset Date Comments Test Results 10/31/2023 Encounter Details Date Type Department Care Team (Late st Contact Info) Description 10/31/2023 Telephone [facility] Fowler [address] [facility] [place] [phone] Kizzy Badillo PA-C [address] [facility] [place] [address] Test Results Allergies Active Allergy Reactions Criticality Noted Date Comments Lisinopril Other (Please comment) 05/06/2022 Burning in throat documented as of this encounter (statuses as of 11/28/2023) Medications Medication Sig Dispensed Refills Start Date [...] every 6 hours as needed. 0 Active Losartan Potassium 100 MG Oral Tablet (Cozaar)Indications :HTN, goal below 140/90 Take 1 Tablet by mouth in the morning. 90 Tablet 2 08/02/2023 Active Spacer/Aero-Holding Chambers Device Use with inhaler. [...] 180 Blister Dosing Unit 1 10/12/2023 Active amLODIPine Besylate 5 MG Oral Tablet (Norvasc)Indication s:HTN, goal below 140/90 Take 1 Tablet by mouth in the morning. 90 Tablet 3 10/11/2023 Active Furosemide 40 MG Oral Tablet (Lasix) Take 1 Tablet by mouth daily. 90 Tablet 3 10/11/2023 Active Hospital, Clinic, or Other Facility Administered Medication Ordered Dose Route Frequency Start Date End Date Status Albuterol Sulfate (Proventil) (2.5 MG/3ML) 0.083% inhalation solution 2.5 mgIndications:COPD, severity to be determined (HCC) 2.5 mg NEBULIZER ONCE PRN 02/17/2023 02/17/2024 Active documented as of this encounter (statuses as of 11/28/2023) Active Problems Problem Noted Date Diagnosed Date [...] as of this encounter (statuses as of 11/28/2023) Resolved Problems Problem Noted Date Diagnosed Date Resolved Date Chronic obstructive pulmonary disease 05/11/2023 06/08/2023 Overview: Per COPD GOLD Classification documented as of this encounter (statuses as of 11/28/2023) Immunizations No known immunizationsdocumented as of this encounter Social History Tobacco Use Types Packs/Day Years Used Date Smoking Tobacco: Former Cigarettes 0.3 5 1 974 - 1978 Passive Smoke Exposure: Never Smokeless Tobacco: Never [...] encounter Miscellaneous Notes * Telephone Encounter - Kizzy Badillo PA-C - 10/31/2023 4:02 PM EDT Noted, if she is feeling ok then we will continue current medications. * Telephone Encounter - Arely Carter CMA - 10/31/2023 2:35 PM EDT Spoke with pt. She is aware of results. She says she is feeling "good, I'm doing ok" I asked what her BP has been at home and she said she said good, but couldn't tell me what the numbers were. She said she forgot, but knew they were good.. * Telephone Encounter - Arely Carter CMA - 10/31/2023 2:35 PM EDT ----- Message from Kizzy Badillo PA-C sent at 10/31/2023 12:13 PM EDT ----- Stable labs. Please check to see how the patient is feeling and what blood pressure readings are athome. documented in this encounter Plan of Treatment Upcoming Encounters Date Type Department Care Team (Late st Contact Info) Description 12/04/2023 9:00 AM EDT Pharmacy Pharmacy Hematology Oncology [facility] [address] [place] [address] [facility], [facility] Hem/Onc [address] [place] [address] 12/04/2023 10:30 AM EDT Laboratory Laboratory, [facility] [address] [place] [phone] [facility] 132 [facility] [place] [address] 12/21/2023 2:00 PM EDT Office Visit Cardiology, [facility] [address] [place] [address] Huong Oseguera CRNP 132 [facility] [place] [address] 01/03/2024 11:00 AM EDT Office Visit Hematology/Oncology [facility] [address] [facility] [phone] Ama Maldonado CRNP [address] [place] [address] 01/24/2024 12:40 PM EDT Office Visit Family Practice [facility] [address] [place] [address] Toshia Reynaga DO [address] [place] [address] Health Maintenance Due Date Last Done Comments Pneumococcal Vaccine: 65+ Years (1 of 2 - PCV) 09/29/1941 Depression Screening 1947 DTaP,Tdap,and Td Vaccines (1 - Tdap) 09/29/1954 Zoster Vaccines (1 of 2) 09/29/1985 COVID-19 Vaccine (1 - 2022- season) 2023 CKD PHOS USE SMARTSET 11468 11/11/2023 11/10/2022 Influenza Vaccine (FLU shot) (Season Ended) 2024 Albumin/Creatinine Ratio 05/11/2024 05/11/2023, 07/24 O2 ASSESSMENT COMPLETED IN PAST YEAR FOR COPD 10/30/2024 10/31/2023 CKD HGB USE SMARTSET 03068 11/26/202411/26, 11/27/2023, 11/22/2023, Additional history exists DXA [...] filedocumented as of this encounter Care Teams County Extension Agent Relationship Specialty Start Date End Date Toshia Reynaga DO [address] [place] [address] PCP - General Family Medicine 12/07/22 documented as of this encounter
--- OUTSIDE RECORDS SUMMARY | 2023-12-06 23:28 | External Medical Summary | Summary of Care ---
Author Name Unknown Organization [facility] Address [address] [place] [address] Phone [phone] Care Team Providers Care Blood Tester Name Role Phone Toshia Reynaga DO Primary Care Provider [phone] Encounter Details Date Type Department Care Team (Late st Contact Info) Description 11/28/2023 Telephone Cardiology, [facility] [address] [place] [address] Huong Oseguera CRNP [address] [facility] [place] [address] Allergies Active Allergy Reactions Criticality Noted Date [...] encounter Miscellaneous Notes * Telephone Encounter - Zev Young LPN - 11/28/2023 3:24 PM EDT Sent patient a MyChart to make aware. * Telephone Encounter - Huong Oseguera CRNP - 11/28/2023 3:13 PM EDT There was a lot of confusion from patient at today's appt as to what medications she is truly on. Please advise son that due to his mom's LOW blood pressures, we would like her to reduce her Furosemide (Lasix) dose in half. She is currently taking 40mg daily. I would like her to take 1/2 tablet (20mg total) daily. It is very important that she continues to take her Metoprolol tartrate and Eliquis. Please spot check blood pressures at home if his mom is complaining of being dizzy. Thank you. documented in this encounter Plan of Treatment Upcoming Encounters Date Type Department Care Team (Late st Contact Info) Description 12/04/2023 9:00 AM EDT Pharmacy Pharmacy Hematology Oncology [facility] [address] [place] [address] [facility] [place] Hem/Onc [address] [place] [address] 12/04/2023 10:30 AM EDT Laboratory Laboratory, [facility] [address] [place] [phone] PaceModesto camara [email or web address] [place] [address] 01/03/2024 11:00 AM EDT Office Visit Hematology/Oncology [facility] [address] [facility] [phone] Ama Maldonado CRNP [address] [place] [address] 01/24/2024 12:40 PM EDT Office Visit Family Practice [facility] [address] [place] [address] Toshia Reynaga DO [address] [place] [address] 03/11/2024 10:00 AM EDT Office Visit Cardiology, [facility] [address] [place] [address] Huong Oseugera CRNP [address] [place] [address] Health Maintenance Due Date Last Done Comments Pneumococcal Vaccine: 65+ Years (1 of 2 - PCV) 09/29/1941 Depression Screening 1947 DTaP,Tdap,and Td Vaccines (1 - Tdap) 09/29/1954 Zoster Vaccines (1 of 2) 09/29/1985 COVID-19 Vaccine (1 - 2022- season) 2023 CKD PHOS USE SMARTSET 18463 11/11/2023 11/10/2022 Influenza Vaccine (FLU shot) (Season Ended) 2024 Albumin/Creatinine Ratio 05/11/2024 05/11/2023, 07/24 O2 ASSESSMENT COMPLETED IN PAST YEAR FOR COPD 10/30/2024 10/31/2023 CKD HGB USE SMARTSET 54289 11/26/202411/26, 11/27/2023, 11/22/2023, Additional history exists DXA [...] filedocumented as of this encounter Care Teams Blood Tester Relationship Specialty Start Date End Date Toshia Reynaga DO [address] [place] [address] PCP - General Family Medicine 12/07/22 documented as of this encounter
--- OUTSIDE RECORDS SUMMARY | 2023-12-06 23:28 | External Medical Summary | Summary of Care ---
Author Name Unknown Organization [facility] Address [address] [place] [address] Phone [phone] Care Team Providers Care Pure Culture Operator Name Role Phone Toshia Reynaga DO Primary Care Provider [phone] Reason for Visit * Reason Comments Follow Up Encounter Details Date Type Department Care Team (Late st Contact Info) Description 11/28/2023 2:30 PM EDT Office Visit Cardiology, [facility] [address] [place] [address] Huong Oseguera CRNP [address] [place] [address] Hospital discharge follow-up*; New onset atrial fibrillation (HCC); Chronic heart failure with preserved ejection fraction (HCC); HTN, goal below 140/90 Allergies Active Allergy Reactions Criticality Noted Date [...] 1 Tablet before bedtime. 0 11/19/2023 Active Losartan Potassium 100 MG Oral Tablet [...] Passive Smoke Exposure: Never Smokeless Tobacco: Never Tobacco Cessation:Counseling Given: Not Answered Alcohol Use Standard Drinks/Week Comments Never 0 (1 standard drink = 0.6 oz pur e alcohol) Sex and Gender Information Value Date Recorded Sex Assigned at Not on file Gender Identity Not on file Sexual Orientation Not on file Job Start Date Occupation Industry Not on file Not on file Not on file documented as of this encounter Last Filed Vital Signs Vital Sign Reading Time Taken Comments Blood Pressure 100/50 11/28/2023 2:35 PM EDT Pulse 100 11/28/2023 2:35 PM EDT Temperature - - Respiratory Rate - - Oxygen Saturation - - Inhaled Oxygen Concentration - - Weight 45.3 kg (99 lb 12.8 oz) 11/28/2023 2:35 P M EDT Height - - Body Mass Index 18.86 11/27/2023 1:22 PM EDT documented in this encounter Patient Instructions * Patient Instructions* Huong Oseguera CRNP - 11/28/2023 2:52 PM EDT Need up to date medication list - I will make medication adjustments once I have an up to date list. Please have blood work in 2 weeks (non-fasting) Follow up in 3 months documented in this encounter Progress Notes * Huong Oseguera CRNP - 11/28/2023 2:30 PM EDT 11/28/2023 Cardiology Follow Up Primary Contract Associate Manager: TBAllan Cardiac Problems: HTN PAC's/SVT HFpEF Chronic ITP CKD Former tobacco abuse, likely underlying COPD HPI: Edilma Kennedy is a 88 year old female presents for hospital discharge follow up Last seen in our office September 2023 by Kizzy Badillo PA-C. Prior to this visit patient had endorsed shortness of breath with leg swelling and her furosemide was increased to 40 mg daily since that time she had noticed improvement with her legs but continued with shortness of breath Plan at that time was to continue her diuretic therapy as well as losartan reduce amlodipine to 5 mg daily. CHF teaching was reinforced with plan for follow up in 3 months Since that time patient had a recent hospitalization on 11/14/2023 at [facility] due to reports of weakness, dizziness and hypotension. Of note she had been discharged from [facility] 2 days prior for acute thrombocytopenia. Patient had denied any chest pain pressure palpitations shortness of breath, and also report improvement in her dizziness after receiving IV fluids Patient was found to be in atrial fibrillation with RVR new onset received IV fluids continued on diltiazem, and was placed on Eliquis 2.5 mg twice daily She presents today feeling ok overall. She does endorse some "racing heart rates", but also endorses that until today she thought that the A-fib was a "deadly" rhythm and that she was going to any day. Explained pathophysiology regarding A-fib to patient BP is low normal and patient does endorse some dizziness. Patient's med list says that she is taking amlodipine and Losartan along with other meds, but patient does not think she is. Patient's son is out in the waiting room and we have confirmed that patient is no longer on either amlodipine or losartan She reports compliance on her Eliquis with no bleeding concerns Reviewed most recent blood work which shows low H and H however improved from prior check and patient denies any alfred bleeding REVIEW OF SYSTEMS: See HPI for pertinent positives. All others negative other than those noted in the HPI. CONSTITUTIONAL: No change in weight, No weakness, No fatigue and No fevers, No sweats or chills. PULMONARY: No cough, sputum, or hemoptysis, No wheezing, No shortness or breath and No recent change in breathing. CARDIOVASCULAR: No chest pain, No dyspnea on exertion, No edema, No palpitations and No syncope. GASTROINTESTINAL: No abdominal pain, No change in bowel habits, No significant heartburn, No nausea, No vomiting, No diarrhea, No constipation, No blood in stools or black tarry stools. No dysphagia. HEMATOLOGIC: No abnormal bleeding and No bruising. NEUROLOGICAL: Normal balance, No headaches and No weakness. Review of patient's allergies indicates: Allergen Reactions Lisinopril Other (Please comment) Burning in throat Current Outpatient Medications Medication Sig Dispense Refill Cyanocobalamin 1000 MCG Oral Tablet Take 1 Tablet by mouth in the morning. Vitamin D3 125 MCG (5000 UT) Oral Capsule Take 1 Capsule by mouth in the morning. Polyethylene Glycol 3350 17 GM/SCOOP Oral Powder (MiraLax) Take by mouth 17 g as needed for Constipation. Dissolve one heaping tablespoon in 8 ounces of water or juice. 507 g 3 Acetaminophen 500 MG Oral Tablet (Tylenol) Take 1 Tablet by mouth every 6 hours as needed. Spacer/Aero-Holding Chambers Device Use with inhaler. 1 Each 0 Albuterol Sulfate (2.5 MG/3ML) 0.083% Inhalation Nebulization Solution (Proventil) Inhale 1 Vial via nebulizer every 4 hours as needed for Wheezing. 3 mL 1 Albuterol Sulfate HFA 108 (90 Base) MCG/ACT Inhalation Aerosol Solution Inhale 2 Puffs by mouth every 4 hours as needed for Cough, Shortness of Breath or Wheezing. 54 g 3 Trelegy Ellipta 100-62.5-25 MCG/ACT Aerosol Powder Breath Activated (Ehlxffhxjib-Tgfxzpselylf-Mralgydubk) Inhale 1 Puff by mouth in the morning. 180 Blister Dosing Unit 1 Furosemide 40 MG Oral Tablet (Lasix) Take 1 Tablet by mouth daily. 90 Tablet 3 Avatrombopag Maleate 20 MG Oral Tablet Take 1 tablet by mouth in the morning. 30 Tablet 5 Eliquis 2.5 MG Oral Tablet Take 1 Tablet by mouth in the morning and 1 Tablet before bedtime. Metoprolol Tartrate 25 MG Oral Tablet (Lopressor) Take 1 Tablet by mouth in the morning and 1 Tablet before bedtime. Current Facility-Administered Medications Medication Dose Route Frequency Provider Last Rate Last Admin Albuterol Sulfate (Proventil) (2.5 MG/3ML) 0.083% inhalation solution 2.5 mg 2.5 mg Nebulizer Once PRN Toshia Reynaga DO 2.5 mg at 04/20/23 1131 No past medical history on file. No family history on file. Social History Socioeconomic History Marital status: Tobacco Use Smoking status: Former Current packs/day: 0.00 Average packs/day: 0.3 packs/day for 5.0 years (1.3 ttl pk-yrs) Types: Cigarettes Start date: 1973 Quit date: 1978 Years since quittin.3 Passive exposure: Never Smokeless tobacco: Never Vaping Use Vaping Use: Never used Substance and Sexual Activity Alcohol use: Never Drug use: Never OBJECTIVE/PHYSICAL EXAMINATION: BP 100/50 | Pulse 100 | Wt 45.3 kg (99 lb 12.8 oz) | BMI 18.86 kg/m | BSA 1.4 m General: No acute distress. A+Ox3. HEENT: Normocephalic. Atraumatic. PERRL. EOMI. Conjunctiva and sclera clear. NECK: No carotid bruits. No JVD. Carotid upstrokes are brisk. Heart: RRR. S1 and S2 noted. No murmur. No rubs or gallops. PMI non displaced. Lungs: Clear to auscultation. No wheezes.No rhonchi. No rales. Abdomen: Normal bowel sounds. Soft. Nontender. No masses or organomegaly. No abdominal bruits. Extremities: No edema. No clubbing or cyanosis. Pulses: radial=2/4, posterior tibial=2/4, dorsalis pedis = 2/4. NEURO: No focal deficits. PSYCH: Appropriate affect and insight. DATA Labs & Imaging Reviewed Below: Limited 2D echocardiogram dated 11/15/2023 from [facility] Left ventricle cavity size is normal wall thickness with normal systolic function is normal LVEF 55-60% no regional wall motion abnormalities systolic pressure is mildly to moderately increased R VS P is 40 3 mm Hg Right atrium mildly dilated Mild MR Mild aortic stenosis with mild regurgitation Moderate TR ASSESSMENT/PLAN: 88 year old year old female 1. Hospital discharge follow-up 2. New onset atrial fibrillation (HCC) Patient endorses occasional palpitations, reports taking her metoprolol twice daily as prescribed Endorse significant anxiety over AFib diagnosis as she thought that it was going to kill her Continue Eliquis 2.5 mg twice daily due to advanced age and low weight -recheck CBC in 2 weeks - CBC; Future 3. Chronic heart failure with preserved ejection fraction (HCC) -patient appears euvolemic on exam -currently taking furosemide 40 mg daily however presents with low blood pressures and associated dizziness, after confirming medication list was son we will reduce furosemide from 40 mg to 20 mg daily 4. HTN, goal below 140/90 -low-normal with some associated dizziness -losartan and amlodipine were both discontinued at time of last hospitalization -patient should continue on metoprolol tartrate 25 mg twice daily -we will request at furosemide be reduced to 20 mg daily DISPOSITION: Follow up 3 months or if symptoms worsen/fail to improve. All questions were answered to the patients satisfaction. Patient advised to report to ED with any and all emergencies. The patient agrees to the above plan and will call with additional questions or concerns. [facility]ITA [facility], [address] [address] I spent a total of 40 minutes on the date of service in preparation, delivery, and documentation ofthe care provided to Edilma Kennedy excluding any time spent in the performance of separately billed services. This chart was completed in part utilizing [employer] Speech Voice Recognition Software. Grammatical errors, random word insertions, pronoun errors, and incomplete sentences are an occasional consequence of this system due to software limitations, ambient noise, and hardware issues. Any formal questions or concerns about the content, text, or information contained within the body of this dictation should be directly addressed to the provider for clarification. documented in this encounter Nursing Notes * Arely Carter CMA - 11/28/2023 2:34 PM EDT Examination Room: 2 Name: Edilma Kennedy Date of : (1935) Reason for Visit: HD Interim Hospitalization(s): Bertram manlius- 11/19 Problems/Concerns: denied Chest Pain/SOB: denied My [facility] is a way you can talk to your provider online through e-mail. Would you like to sign up? I can activate it for you? ALREADY ACTIVE Patient was instructed to not get up on the exam table until directed and assisted by their provider; patient is to remain seated in the chair/ wheelchair/ exam table for fall prevention and safety reasons. Patient is aware to have assistance to step down off exam table with personnel. Patient voiced full comprehension of instructions. documented in this encounter Plan of Treatment Upcoming Encounters Date Type Department Care Team (Late st Contact Info) Description 12/04/2023 9:00 AM EDT Pharmacy Pharmacy Hematology [place]cology [place] [address] [place] [address] [facility] [place] Hem/Onc [address] [place] [address] 12/04/2023 10:30 AM EDT Laboratory Laboratory, [facility] [address] [facility] [place] [phone] PaceModesto camara [address] [facility] [place] [address] 01/03/2024 11:00 AM EDT Office Visit Hematology/Oncology [facility] [address] [facility] [place] [address] Ama Maldonado CRNP [address] [place] [address] 01/24/2024 12:40 PM EDT Office Visit Family Practice [facility] [address] [facility] [place] [address] Toshia Reynaga DO [address] [place] [address] 03/11/2024 10:00 AM EDT Office Visit Cardiology, [facility] [address] [facility] [place] [address] Huong Oseguera CRNP [address] [place] [address] Scheduled Orders Name Type Priority Associated Diagnoses Orde r Schedule CBC Lab Routine New onset atrial fibrillation (HCC) Expected: 12/12/2023, Expires: 11/27/2024 Health Maintenance Due Date Last Done Comments Pneumococcal Vaccine: 65+ Years (1 of 2 - PCV) 09/29/1941 Depression Screening 1947 DTaP,Tdap,and Td Vaccines (1 - Tdap) 09/29/1954 Zoster Vaccines (1 of 2) 09/29/1985 COVID-19 Vaccine (1 - 2022- season) 2023 CKD PHOS USE SMARTSET 00957 11/11/2023 11/10/2022 Influenza Vaccine (FLU shot) (Season Ended) 2024 Albumin/Creatinine Ratio 05/11/2024 05/11/2023, 07/24 O2 ASSESSMENT COMPLETED IN PAST YEAR FOR COPD 10/30/2024 10/31/2023 CKD HGB USE SMARTSET 55884 11/26/202411/26, 11/27/2023, 11/22/2023, Additional history exists DXA [...] as of this encounter Visit Diagnoses Diagnosis Hospital discharge follow-up- Primary Other follow-up examination New onset atrial fibrillation (HCC) Atrial fibrillation Chronic heart failure with preserved ejection fraction (HCC) HTN, goal below 140/90 Unspecified essential hypertension documented in this encounter Care Teams Pure Culture Operator Relationship Specialty Start Date End Date Toshia Reynaga DO [address] [place] [address] PCP - General Family Medicine 12/07/22 documented as of this encounter
--- OUTSIDE RECORDS SUMMARY | 2023-12-06 23:28 | External Medical Summary | Summary of Care ---
Author Name Unknown Organization [facility] Address [address] [place] [address] Phone [phone] Care Team Providers Care Roof Assembler Name Role Phone Toshia Reynaga DO Primary Care Provider [phone] Reason for Visit * Reason Comments Outpatient Testing Encounter Details Date Type Department Care Team (Late st Contact Info) Description 12/04/2023 10:30 AM EDT Laboratory Laboratory, [facility] [address] [place] [address] [facility] [address] [place] [address] Chronic ITP (idiopathic thrombocytopenia) ([facility]) Allergies Active Allergy Reactions Criticality Noted Date [...] on file documented as of this encounter Plan of Treatment Upcoming Encounters Date Type Department Care Team (Late st Contact Info) Description 01/03/2024 11:00 AM EDT Office Visit [facility]ology[facility]On[facility] [phone] Ama Maldonado CRNP [address] [place] [address] [place] [address] 01/24/2024 12:40 PM EDT Office Visit Family Practice [facility] [address] [place] [address] Toshia Reynaga DO [address] [place] [address] 03/11/2024 10:00 AM EDT Office Visit Cardiology, [facility] [place] [address] Huong Oseguera CRNP [address] [place] [address] Pending Results Name Type Priority Associated Diagnoses Date /Time CBC WITH WBC DIFFERENTIAL Lab STAT Chronic ITP (idiopathic thrombocytopenia) (HCC) 12/04/2023 10:37 AM EDT CBC Lab STAT Chronic ITP (idiopathic thrombocytopenia) (HCC) 12/04/2023 10:37 AM EDT DIFFERENTIAL, AUTOMATED Lab STAT Chronic ITP (idiopathic thrombocytopenia) (HCC) 12/04/2023 10:37 AM EDT Health Maintenance Due Date Last Done Comments Pneumococcal Vaccine: 65+ Years (1 of 2 - PCV) 09/29/1941 Depression Screening 1947 DTaP,Tdap,and Td Vaccines (1 - Tdap) 09/29/1954 Zoster Vaccines (1 of 2) 09/29/1985 COVID-19 Vaccine (1 - season) 2023 CKD PHOS USE SMARTSET 46398 11/11/2023 11/10/2022 Influenza Vaccine (FLU shot) (Season Ended) 2024 Albumin/Creatinine Ratio 05/11/2024 05/11/2023, 07/24 O2 ASSESSMENT COMPLETED IN PAST YEAR FOR COPD 10/30/2024 10/31/2023 CKD HGB USE SMARTSET 80267 11/26/202411/26, 11/27/2023, 11/22/2023, Additional history exists DXA [...] Visit Diagnoses Diagnosis 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
--- OUTSIDE RECORDS SUMMARY | 2023-12-06 23:29 | External Medical Summary ---
Author Name Unknown Address Unknown Organization [facility] [place] [address] [place] [address] Laboratory Report Ordering Provider Test Date Status RONAK LNYCH 11/27/2023 14:30:50 Final Observation Date Value Abnormality Reference (Units ) Status BUN 11/27/2023 14:30:50 19 6-20 (mg/dL) Final Creatinine 11/27/2023 14:30:50 1.1 Above high normal 0.5-1.0 (mg/dL) Final Glomerular filtration rate/1.73 sq M.predicted [Volume Rate/Area] in Serum, Plasma or Blood by Creatinine-based formula (CKD-EPI) 11/27/2023 14:30:50 50 Below low normal >=60 (mL/min) Final eGFR is calculated based on the CKD-EPI 2020 equation Sodium 11/27/2023 14:30:50 144 135-146 (m mol/L) Final Potassium 11/27/2023 14:30:50 4.1 3.5-5.1 (m mol/L) Final Cl 11/27/2023 14:30:50 101 98-107 (mm ol/L) Final CO2 11/27/2023 14:30:50 33 Above high normal 22 -32 (mmol/L) Final Anion gap 11/27/2023 14:30:50 10 7-15 (mmol /L) Final Glucose 11/27/2023 14:30:50 128 Above high normal 70 -120 (mg/dL) Final Albumin 11/27/2023 14:30:50 3.5 Below low normal 3.8 -5.0 (g/dL) Final AST (Aspartate aminotransferase) 11/27/2023 14:30:50 13 10-35 (U/L) Fin al Alk Phos 11/27/2023 14:30:50 67 35-130 (U/ L) Final Bilirubin, Total 11/27/2023 14:30:50 0.7 <=1 .2 (mg/dL) Final Calcium 11/27/2023 14:30:50 9.4 8.4-10.2 ( mg/dL) Final Protein 11/27/2023 14:30:50 5.9 Below low normal 6.0 -8.3 (g/dL) Final ALT (Alanine aminotransferase) 11/27/2023 14:30:50 6 Below low normal 10-35 (U/L) Final Performing Location [facility] [place] [address] [facility] [address]
--- OUTSIDE RECORDS SUMMARY | 2023-12-06 23:29 | External Medical Summary | Summary of Care ---
Author Name Unknown Organization [facility] Address [address] [place] [address] Phone [phone] Care Team Providers Care Fuel System Maintenance Supervisor Name Role Phone Toshia Reynaga DO Primary Care Provider [phone] Reason for Visit * Reason Onset Date Comments Advice 11/17/2023 Choi Encounter Details Date Type Department Care Team (Late st Contact Info) Description 11/17/2023 Telephone Hematology/Oncology [facility] [place] [address] [place] [address] Services, Scheduling [address] [place] [address] Advice (Jimbo) Allergies Active Allergy Reactions Criticality Noted Date Comments Lisinopril Other (Please comment) 05/06/2022 Burning in throat documented as of this encounter (statuses as of 11/21/2023) Medications Medication Sig Dispensed Refills Start Date [...] the morning. 30 Tablet 5 11/13/2023 Active Hospital, Clinic, or Other Facility Administered Medication Ordered Dose Route Frequency Start Date End Date Status Albuterol Sulfate (Proventil) (2.5 MG/3ML) 0.083% inhalation solution 2.5 mgIndications:COPD, severity to be determined (HCC) 2.5 mg NEBULIZER ONCE PRN 02/17/2023 02/17/2024 Active documented as of this encounter (statuses as of 11/21/2023) Active Problems Problem Noted Date Diagnosed Date Moderate pulmonary hypertension 09/18/2023 COPD, group B, [...] as of this encounter (statuses as of 11/21/2023) Resolved Problems Problem Noted Date Diagnosed Date Resolved Date Chronic obstructive pulmonary disease 05/11/2023 06/08/2023 Overview: Per COPD GOLD Classification documented as of this encounter (statuses as of 11/21/2023) Immunizations No known immunizationsdocumented as of this [...] encounter Miscellaneous Notes * Telephone Encounter - Zeeshan Choi MD - 11/21/2023 2:37 PM EDT As long as we have every weekly CBCD checkup and we monitor her Platelet count, I am okay for appointment with me on 01/03/2024. * Telephone Encounter - Gina Goss OSA - 11/21/2023 12:13 PM EDT Called michael and they stated that patient will need to sign release and then it needs faxed to [phone] FYI * Telephone Encounter - Winter Casiano RP - 11/21/2023 11:35 AM EDT Called pt son regarding avatrombopag management and pt hospital status. Son states pt discharged from [facility] 11/19/23 and will have lab drawn by [facility] 11/22/23. Son inquiring if ptshould have provider follow up sooner than 01/03/24. Dr. Choi: Should pt be seen prior to scheduled follow up 01/03/24 given recent hospital admissions and avatrombopag dose adjustments? To note, she follows up with PCP 11/27/23 and Cardiology 11/28/23 Scheduling: can you please call [facility] for most recent admission records and potentially call pt's son for follow up pending Dr. Choi's response? Thanks Dari/Berhane: FYI * Telephone Encounter - Zeeshan Choi MD - 11/20/2023 10:30 AM EDT Continue Doptelet at the same dose. She is on Eliquis now. * Telephone Encounter - Berhane Tucker RN - 11/17/2023 12:40 PM EDT Called Nehemiah Cristina platelet count today is 504. She was started on Eliquis. Wanted to know 's thoughts on Doptelet 20mg with platelet count elevated. I did advise that last time we stopped the medication the patient had a platelet count of 5. Note left for Dr. Choi to review. * Telephone Encounter - Alivia Moore OSA - 11/17/2023 11:12 AM EDT Jimbo pt. Pt's Platelet count is 5.4. She is currently taking Doptelet 20mg daily. Ibeth wants to confirm if doctor wants pt to stay on this dose or not. Also, pt is suppossed to start Eloquist. Hemoglobin is 7.8. Please call Ibeth valentin from [facility] at [phone] Thank you! documented in this encounter Plan of Treatment Upcoming Encounters Date Type Department Care Team (Late st Contact Info) Description 11/23/2023 9:00 AM EDT Pharmacy Pharmacy Hematology Oncology [facility] [address] [place] [address] [facility] Hem/Onc [address] [place] [address] 11/27/2023 1:20 PM EDT Office Visit [facility] [address] [place] [address] Toshia Reynaga, [address] [place] [address] 11/28/2023 2:30 PM EDT Office Visit Cardiology, [facility] [address] [place] [address] Huong Oseguera CRNP [address] [place] [address] 12/21/2023 1:00 PM EDT Office Visit [facility] [address] [place] [address] Toshia Reynaga, [address] [place] [address] 12/21/2023 2:00 PM EDT Office Visit Cardiology, [facility] [address] [place] [address] Huong Oseguera CRNP [address] [place] [address] 01/03/2024 11:15 AM EDT Office Visit [facility]ology[facility]On[facility] [place] [address] [facility] [place] [address] Zeeshan Choi MD 200 [facility] [place] [address] 01/24/2024 12:40 PM EDT Office Visit [facility] [address] [place] [address] Toshia Reynaga DO [address] [place] [address] Health Maintenance Due Date Last Done Comments Pneumococcal Vaccine: 65+ Years (1 of 2 - PCV) 09/29/1941 Depression Screening 1947 DTaP,Tdap,and Td Vaccines (1 - Tdap) 09/29/1954 Zoster Vaccines (1 of 2) 09/29/1985 COVID-19 Vaccine (1 - 2022- season) 2023 CKD PHOS USE SMARTSET 76004 11/11/2023 11/10/2022 Influenza Vaccine (FLU shot) (Season Ended) 2024 Albumin/Creatinine Ratio 05/11/2024 05/11/2023, 07/24 O2 ASSESSMENT COMPLETED IN PAST YEAR FOR COPD 10/30/2024 10/31/2023 CKD HGB USE SMARTSET 28245 11/13/202411/13, 11/14/2023, 11/08/2023, Additional history exists DXA Scan 12/07/2032 12/07/2022 [...] filedocumented as of this encounter Care Teams Fuel System Maintenance Supervisor Relationship Specialty Start Date End Date Toshia Reynaga DO [address] [place] [address] PCP - General Family Medicine 12/07/22 documented as of this encounter
--- OUTSIDE RECORDS SUMMARY | 2023-12-06 23:29 | External Medical Summary ---
Author Name Unknown Address Unknown Organization K01:[facility] - [address] [facility] [address] Laboratory Report Ordering Provider Test Date Status RONAK LYNCH 11/27/2023 14:30:50 Final Observation Date Value Abnormality Reference (Units ) Status TSH 11/27/2023 14:30:50 4.19 0.27-4.20 (uIU/mL) Final Performing Location [facility] - [address] [facility] [address]
--- OUTSIDE RECORDS SUMMARY | 2023-12-06 23:29 | External Medical Summary | Summary of Care ---
Author Name Unknown Organization [facility] Address [address] [place] [address] Phone [phone] Care Team Providers Care Animal Caretaker Name Role Phone Toshia Reynaga DO Primary Care Provider [phone] Reason for Visit * Reason Comments Medication Management Encounter Details Date Type Department Care Team (Late st Contact Info) Description 11/21/2023 9:00 AM EDT Pharmacy Pharmacy Hematology Oncology [facility] [address] [place], [place] [id number] [facility] Hem/Onc [address] [place], [place] [id number] Chronic ITP (idiopathic thrombocytopenia) ([facility])* Allergies Active Allergy Reactions Criticality Noted Date [...] this encounter Progress Notes * Winter Casiano, [facility] - 11/21/2023 8:44 AM EDT MEDICATION THERAPY MANAGEMENT AVATROMBOPAG TREATMENT PROGRESS NOTE Edilma Kennedy [id number] Patient Phone Numbers son Christian Son: Christian Communication: Spoke to: Son Treatment: Medication: Avatrombopag (Doptelet) Indication/Staging/Diagnosis Code: ITP/D69.3 Dose: 20mg daily ( 09/25/23) Administration: with food Start Date: November 2019 Primary Dog Raiser/Oncologist: Dr. Gabriel Choi Additional therapy: Rutiximab x 2 Dose adjustment / medication hold: 09/14/23-09/24/23: avatrombopag held due to thrombocytosis (PLT 919K) 09/25/23: resume avatrombopag at 20mg daily 10/25/23-11/06/23: avatrombopag held due to thrombocytosis (PLT 684K) Interval History: Pt admitted to [facility] 05/23/22 for bleeding and PLT < 10K and transferred to [facility] 05/24/22 and discharged 06/18/22 Per OV 03/09/23, lab monitoring extended to monthly Admitted to [facility] 09/01/23-09/06/23 for CHF/COPD exacerbation - avatrombopag continued during admission despite PLT 718K 09/01/23 Admitted to [facility] 10/18/23-10/22/23 for COPD exacerbation Admitted to [facility] 11/09/23-11/12/23 for thrombocytopenia and received methylprednisolone and increased dose of avatrombopag 40mg daily Admitted to [facility] 11/15/23-11/19/23 for symptomatic a fib and discharged on apixaban Per TE 11/17/23, pt okay to receive apixaban given elevated PLT Son states [facility] will be coming to pt's house 11/22/23 for repeat labs. States he will continue pt on avatrombopag unless PLT significantly elevated Inquiring if pt should have sooner follow up with Dr. Choi given recent hospital admissions and avatrombopag dose adjustments Changes to medication list since last visit? Yes, apixaban and metoprolol - no DDIs Assessment and plan: Per TE 11/17/23, PLT increasing to 504K. Pt to continue current dose of avatrombopag 20mg daily due to anticoagulation therapy Provided emotional support TE sent to Dr. Choi and scheduling regarding son's request for sooner follow up MTM to follow up with results 11/22 Assessment of compliance: yes Dose adjustment needed based on lab or adverse drug reaction? No Follow up: 11/22 with labs Winter Casiano, AleenaD, BCOP Clinical Pharmacist, [facility] Oral Chemotherapy [facility] 11/21/2023, 11:45 AM Pertinent labs: N/A Time Spent on Encounter: 16 - 20 minutes Encounter Group: Hematology Encounter Interventions Item Category: Oral Chemotherapy Other: Avatrombopag Problem/Rationale: Safety: Needs additional monitoring - Medication Requires monitoring Pharmacist Intervention(s): Care coordination, Drug Interaction Screen, Refer to Provider Follow-Up, and Toxicity monitoring Magnitude of Intervention: Refer patient to provider for clinic follow (Level 4) documented in this encounter Plan of Treatment Upcoming Encounters Date Type Department Care Team (Late st Contact Info) Description 11/23/2023 9:00 AM EDT Pharmacy Pharmacy Hematology Oncology [facility] [address] [place] [address] [facility] Hem/Onc [facility] [place] [address] 11/27/2023 1:20 PM EDT Office Visit [facility] [address] [place] [address] Toshia Reynaga DO [address] [place] [address] 11/28/2023 2:30 PM EDT Office Visit Cardiology, [facility] [address] [place] [address] Huong Oseguera CRNP [address] [place] [address] 12/21/2023 1:00 PM EDT Office Visit [facility] [address] [place] [address] Tosiha Reynaga DO [address] [place] [address] 12/21/2023 2:00 PM EDT Office Visit Cardiology, [facility] [address] [place] [address] Huong Oseguera CRNP [address] [place] [address] 01/03/2024 11:15 AM EDT Office Visit Hematology/Oncology [facility] [address] [facility] [place] [phone] Zeeshan Choi MD [address] [facility] [place] [address] 01/24/2024 12:40 PM EDT Office Visit [facility] [address] [place] [address] Toshia Reynaga DO [address] [place] [address] Health Maintenance Due Date Last Done Comments Pneumococcal Vaccine: 65+ Years (1 of 2 - PCV) 09/29/1941 Depression Screening 1947 DTaP,Tdap,and Td Vaccines (1 - Tdap) 09/29/1954 Zoster Vaccines (1 of 2) 09/29/1985 COVID-19 Vaccine (1 - season) 2023 CKD PHOS USE SMARTSET 87355 11/11/2023 11/10/2022 Influenza Vaccine (FLU shot) (Season Ended) 2024 Albumin/Creatinine Ratio 05/11/2024 05/11/2023, 07/24 O2 ASSESSMENT COMPLETED IN PAST YEAR FOR COPD 10/30/2024 10/31/2023 CKD HGB USE SMARTSET 55219 11/13/202411/13, 11/14/2023, 11/08/2023, Additional history exists DXA [...] purpura documented in this encounter Care Teams Animal Caretaker Relationship Specialty Start Date End Date Toshia Reynaga DO [address] [address] PCP - General Family Medicine 12/07/22 documented as of this encounter
--- OUTSIDE RECORDS SUMMARY | 2023-12-06 23:29 | External Medical Summary | Summary of Care ---
Author Name Unknown Organization [facility] Address [address] [place] [address] Phone [phone] Care Team Providers Care Credit Assistant Name Role Phone Toshia Reynaga DO Primary Care Provider [phone] Reason for Visit * Reason Onset Date Comments Advice 11/17/2023 Choi Encounter Details Date Type Department Care Team (Late st Contact Info) Description 11/17/2023 Telephone Hematology/Oncology [facility] [place] [address] [place] [address] Services, Scheduling [address] [place] [address] Advice (Jimbo) Allergies Active Allergy Reactions Criticality [...] release and then it needs faxed to [phone] FYI * Telephone Encounter - Winter Casiano RP - 11/21/2023 11:35 AM EDT Called pt son regarding avatrombopag management and pt hospital status. Son states pt discharged from [facility] 11/19/23 and will have lab drawn by [facility] 11/22/23. Son inquiring if ptshould have provider follow up sooner than 01/03/24. Dr. Choi: Should pt be seen prior to scheduled follow up 01/03/24 given recent hospital admissions and avatrombopag dose adjustments? To note, she follows up with PCP 11/27/23 and Cardiology 11/28/23 Scheduling: can you please call [facility] for most recent admission records and potentially [...] is 7.8. Please call Ibeth valentin from [facility] at [phone] Thank you! documented in this encounter Plan of Treatment Upcoming Encounters Date Type Department Care Team (Late st Contact Info) Description 11/23/2023 9:00 AM EDT Pharmacy Pharmacy Hematology Oncology [facility] [address] [place] [address] [facility] Hem/Onc [address] [place] [address] 11/27/2023 1:20 PM EDT Office Visit [facility] [address] [place] [address] Toshia Reynaga, [address] [place] [address] 11/28/2023 2:30 PM EDT Office Visit Cardiology, [facility] [address] [place] [address] Huong Oseguera CRNP [address] [place] [address] 12/21/2023 1:00 PM EDT Office Visit [facility] [address] [place] [address] Toshia Reynaga, [address] [place] [address] 12/21/2023 2:00 PM EDT Office Visit Cardiology, [facility] [address] [place] [address] Huong Oseguera CRNP [address] [place] [address] 01/03/2024 11:15 AM EDT Office Visit Hematology/Oncology [facility] [place] [address] [facility] [place] [address] Zeeshan Choi MD [address] [place] [address] 01/24/2024 12:40 PM EDT Office Visit [facility] [address] [place] [address] Toshia Reynaga DO [address] [place] [address] Health Maintenance Due Date Last Done Comments Pneumococcal Vaccine: 65+ Years (1 of 2 - PCV) 09/29/1941 Depression Screening 1947 DTaP,Tdap,and Td Vaccines (1 - Tdap) 09/29/1954 Zoster Vaccines (1 of 2) 09/29/1985 COVID-19 Vaccine (1 - 2022- season) 2023 CKD PHOS USE SMARTSET 75585 11/11/2023 11/10/2022 Influenza Vaccine (FLU shot) (Season Ended) 2024 Albumin/Creatinine Ratio 05/11/2024 05/11/2023, 07/24 O2 ASSESSMENT COMPLETED IN PAST YEAR FOR COPD 10/30/2024 10/31/2023 CKD HGB USE SMARTSET 95227 11/13/202411/13, 11/14/2023, 11/08/2023, Additional history exists DXA [...] filedocumented as of this encounter Care Teams Credit Assistant Relationship Specialty Start Date End Date Toshia Reynaga DO [address] [place] [address] PCP - General Family Medicine 12/07/22 documented as of this encounter
--- OUTSIDE RECORDS SUMMARY | 2023-12-06 23:29 | External Medical Summary | Summary of Care ---
Author Name Unknown Organization [facility] Address [address] [place] [address] Phone [phone] Care Team Providers Care Labor Crew Supervisor Name Role Phone Toshia Garza DO Primary Care Provider [phone] Reason for Visit * Reason Onset Date Comments Hospital Follow-Up Pt here for h ospital f/u apt, was seen for intermittent episodes of vertigo, lightheadedness, she fell 2 weeks ago and then sent to hospital. Is on continuous O2 via nasal. Hospital Follow-Up 11/27/2023 Encounter Details Date Type Department Care Team (Late st Contact Info) Description 11/27/2023 1:20 PM EDT Office Visit Family [facility] 132 [facility] [place] [address] Toshia Garza DO 132 [facility] [place] [address] Hospital discharge follow-up*; Chronic respiratory failure with hypoxia (HCC); Atrial fibrillation, unspecified type (HCC); Acute cough; DORETHA (acute kidney injury) (HCC) Allergies Active Allergy Reactions Criticality Noted Date Comments Lisinopril Other (Please comment) 05/06/2022 Burning in throat documented as of this encounter (statuses as of 11/27/2023) Medications Medication Sig Dispensed Refills Start Date [...] as of this encounter (statuses as of 11/27/2023) Active Problems Problem Noted Date Diagnosed Date [...] as of this encounter (statuses as of 11/27/2023) Resolved Problems Problem Noted Date Diagnosed Date Resolved Date Chronic obstructive pulmonary disease 05/11/2023 06/08/2023 Overview: Per COPD GOLD Classification documented as of this encounter (statuses as of 11/27/2023) Immunizations No known immunizationsdocumented as of this [...] Sign Reading Time Taken Comments Blood Pressure 96/46 11/27/2023 1:22 PM EDT Pulse 90 11/27/2023 1:22 PM EDT Temperature 37.1 C (98.8 F) 11/27/2023 1:22 PM ED T Respiratory Rate 18 11/27/2023 1:22 PM EDT Oxygen Saturation - - Inhaled Oxygen Concentration - - Weight 45.4 kg (100 lb) 11/27/2023 1:22 PM EDT Height 154.9 cm (5' 1") 11/27/2023 1:22 PM EDT Body Mass Index 18.89 11/27/2023 1:22 PM EDT documented in this encounter Progress Notes * Toshia Garza, - 11/27/2023 1:24 PM EDT Subjective: Edilma Kennedy is a 88 year old female. Chief Complaint Patient presents with Hospital Follow-Up Pt here for hospital f/u apt, was seen for intermittent episodes of vertigo, lightheadedness, she fell 2 weeks ago and then sent to hospital. Is on continuous O2 via nasal. Hospital Follow-Up There are no exam notes on file for this visit. HPI: This is a 88 year old female with PMHx as below presents with hospital follow up for weakness,dizziness, hypotension EKG in ER - a fib with RVR new onset DORETHA Dehydration Started on eliquis - this was discussed with DR. Choi hematology Cardio consulted - BB started Has cardio follow up set up tomorrow Is to have home PT/OT Admitted 11/13 Discharged 11/18 PMhx chronic resp failure on continuous oxygen, [facility] Health Maintenance Due Topic Date Due Pneumococcal Vaccine: 65+ Years (1 of 2 - PCV) Never done Depression Screening Never done DTaP,Tdap,and Td Vaccines (1 - Tdap) Never done Zoster Vaccines (1 of 2) Never done COVID-19 Vaccine (1 - season) Never done CKD PHOS USE SMARTSET 04505 11/11/2023 Patient Active Problem List Diagnosis Code HTN, goal below 140/90 I10 Chronic ITP (idiopathic thrombocytopenia) (HCC) D69.3 Constipation K59.00 Protein-calorie malnutrition (HCC) E46 Stage 3a chronic kidney disease (HCC) N18.31 Hx of nonmelanoma skin cancer Z85.828 COPD, group B, by GOLD 2017 classification (HCC) J44.9 Moderate pulmonary hypertension (HCC) I27.20 Chronic respiratory failure with hypoxia ([facility]) J96.11 Current Outpatient Medications Medication Sig Dispense Refill [...] by mouth every 6 hours as needed. Losartan Potassium 100 MG Oral Tablet (Cozaar) Take 1 Tablet by mouth in the morning. 90 Tablet 2 Trelegy Ellipta 100-62.5-25 MCG/ACT Aerosol Powder Breath Activated (Edypvagxhwo-Wrlokzmkswqj-Ueoltxjkis) Inhale 1 Puff by mouth in the morning. 180 Blister Dosing Unit 1 amLODIPine Besylate 5 MG Oral Tablet (Norvasc) Take 1 Tablet by mouth in the morning. 90 Tablet 3 Furosemide 40 MG Oral Tablet (Lasix) Take [...] the morning and 1 Tablet before bedtime. Spacer/Aero-Holding Chambers Device Use with inhaler. 1 Each 0 Albuterol Sulfate (2.5 MG/3ML) 0.083% Inhalation Nebulization Solution (Proventil) Inhale 1 Vial via nebulizer every 4 hours as needed for Wheezing. 3 mL 1 Albuterol Sulfate HFA 108 (90 Base) MCG/ACT Inhalation Aerosol Solution Inhale 2 Puffs by mouth every 4 hours as needed for Cough, Shortness of Breath or Wheezing. 54 g 3 Current Facility-Administered Medications Medication Dose Route Frequency Provider Last Rate Last Admin Albuterol Sulfate (Proventil) (2.5 MG/3ML) 0.083% inhalation solution 2.5 mg 2.5 mg Nebulizer Once PRN Toshia Garza DO 2.5 mg at 04/20/23 1131 No past medical history on file. Past Surgical History: Procedure Laterality Date FACE/SCALP SUBQ TUMOR REMOVAL, 2 CM OR MORE N/A 07/28/2023 EXCISION FACE/SCALP SUBQ TUMOR, 2 CM OR MORE performed by Paula Callahan MD at OR [facility] Review of patient's allergies indicates: Allergen Reactions Lisinopril Other (Please comment) Burning in throat No family history on file. No family status information on file. Social History Socioeconomic History Marital status: Spouse name: Not on file Number of children: Not on file Years of education: Not on file Highest education level: Not on file Occupational History Not on file Tobacco Use Smoking status: Former Current packs/day: 0.00 Average packs/day: 0.3 packs/day for 5.0 years (1.3 ttl pk-yrs) Types: Cigarettes Start date: 1973 Quit date: 1978 Years since quittin.3 Passive exposure: Never Smokeless tobacco: Never Vaping Use Vaping Use: Never used Substance and Sexual Activity Alcohol use: Never Drug use: Never Sexual activity: Not on file Other Topics Concern Not on file Social History Narrative Not on file Social Determinants of Health Financial Resource Strain: Not on file Food Insecurity: Not on file Transportation Needs: Not on file Physical Activity: Not on file Stress: Not on file Social Connections: Not on file Intimate Partner Violence: Not on file Housing Stability: Not on file Review of Systems: As per HPI all other ROS negative. Wt Readings from Last 3 Encounters: 11/27/23 45.4 kg (100 lb) 10/31/23 45.2 kg (99 lb 10.4 oz) 10/25/23 48.6 kg (107 lb 2 oz) Results for orders placed or performed in visit on 11/22/23 CHEMISTRY-OUTSIDE Result Value Ref Range Not all results display below - see scan for full detail SEE SCAN: CBCD, BMP CREATININE-OUTSIDE LAB 1.18 (H) 0.55 - 1.02 MG/DL EGFR-OUTSIDE LAB 44 (L) >=60 ML/MIN/1.73M2 POTASSIUM-OUTSIDE LAB 4.5 3.5 - 5.1 MMOL/L GLUCOSE-OUTSIDE LAB 105 70 - 110 MG/DL HOURS FASTING TRIGLYCERIDES-OUTSIDE LAB CHOLESTEROL-OUTSIDE LAB HDL-OUTSIDE LAB CHOL/HDL RATIO-OUTSIDE LAB LDL (CALCULATED)-OUTSIDE LAB LDL (DIRECT MEASURE)-OUTSIDE LAB HEMOGLOBIN, W3D-ADPZCPS LAB PHOSPHORUS-OUTSIDE LAB PTH-OUTSIDE LAB MICROALBUMIN RATIO-OUTSIDE LAB PROTEIN, UA-OUTSIDE LAB HGB 7.9 (L) 12.0 - 16.0 GM/DL OBJECTIVE: Physical Exam: BP 96/46 | Pulse 90 | Temp 37.1 C (98.8 F) (Tympanic) | Resp 18 | Ht 1.549 m (5' 1") | Wt 45.4 kg (100 lb) | BMI 18.89 kg/m | BSA 1.4 m General: alert, healthy, and no distress Head: Normocephalic, No masses, lesions, tenderness or abnormalities Heart: regular rate & rhythm and pos LINDA Lungs: decreased breath sounds, scattered rales bilaterally Hospital discharge follow-up (Primary) - DISCH MED RECON CUR MED LIS Chronic respiratory failure with hypoxia (HCC) Atrial fibrillation, unspecified type (HCC) - CBC WITH WBC DIFFERENTIAL; Future; Expected date: 11/27/2023 - COMPREHENSIVE METABOLIC PANEL; Future; Expected date: 11/27/2023 - TSH WITH FREE T4 IF INDICATED; Future; Expected date: 11/27/2023 - LIPID PANEL WITH DIRECT LDL IF TG IS HIGH; Future; Expected date: 11/27/2023 Acute cough - XR CHEST 2 VIEWS DORETHA (acute kidney injury) (HCC) Follow-up: Return if symptoms worsen or fail to improve. | Check-out note: Please cancel 12/20 appt Toshia Garza DO documented in this encounter Plan of Treatment Upcoming Encounters Date Type Department Care Team (Late st Contact Info) Description 11/28/2023 2:30 PM EDT Office Visit Janeth [facility] [address] [place] [address] Huong Oseguera CRNP 132 [place] [address] 12/21/2023 2:00 PM EDT Office Visit Janeth [facility] [address] [place] [address] Huong Oseguera CRNP [address] [place] [address] 01/03/2024 11:00 AM EDT Office Visit Hematology/Oncology [facility] [address] [place] [phone] Ama Maldonado CRNP [address] [place] [address] 01/24/2024 12:40 PM EDT Office Visit Family Practice [facility] [address] [place] [address] Toshia Garza DO [address] [place] [address] Pending Results Name Type Priority Associated Diagnoses Date /Time XR CHEST 2 VIEWS Medical Imaging Routine Acute cough 11/27/2023 1:52 PM EDT Scheduled Orders Name Type Priority Associated Diagnoses Orde r Schedule CBC WITH WBC DIFFERENTIAL Lab Routine Atrial fibrillation, unspecified type (HCC) Expected: 11/27/2023 (Approximate), Expires: 11/26/2024 COMPREHENSIVE METABOLIC PANEL Lab Routine Atrial fibrillation, unspecified type (HCC) Expected: 11/27/2023 (Approximate), Expires: 11/26/2024 TSH WITH FREE T4 IF INDICATED Lab Routine Atrial fibrillation, unspecified type (HCC) Expected: 11/27/2023 (Approximate), Expires: 11/26/2024 LIPID PANEL WITH DIRECT LDL IF TG IS HIGH Lab Routine Atrial fibrillation, unspecified type (HCC) Expected: 11/27/2023 (Approximate), Expires: 11/26/2024 Health Maintenance Due Date Last Done Comments Pneumococcal Vaccine: 65+ Years (1 of 2 - PCV) 09/29/1941 Depression Screening 1947 DTaP,Tdap,and Td Vaccines (1 - Tdap) 09/29/1954 Zoster Vaccines (1 of 2) 09/29/1985 COVID-19 Vaccine (1 - 2022-24 season) 2023 CKD PHOS USE SMARTSET 39859 11/11/2023 11/10/2022 Influenza Vaccine (FLU shot) (Season Ended) 2024 Albumin/Creatinine Ratio 05/11/2024 05/11/2023, 07/24 O2 ASSESSMENT COMPLETED IN PAST YEAR FOR COPD 10/30/2024 10/31/2023 CKD HGB USE SMARTSET 35290 11/21/202411/21, 11/14/2023, 11/14/2023, Additional history exists DXA Scan 12/07/2032 12/07/2022 [...] Hospital discharge follow-up- Primary Other follow-up examination Chronic respiratory failure with hypoxia (HCC) Chronic respiratory failure Atrial fibrillation, unspecified type (HCC) Acute cough DORETHA (acute kidney injury) (HCC) Acute kidney failure, unspecified documented in this encounter Care Teams Labor Crew Supervisor Relationship Specialty Start Date End Date Toshia Garza DO [address] [place] [address] PCP - General Family Medicine 12/07/22 documented as of this encounter
--- OUTSIDE RECORDS SUMMARY | 2023-12-06 23:29 | External Medical Summary ---
Author Name Unknown Address Unknown Organization K01:[facility] [place] [address] [facility] [place] [address] Laboratory Report Ordering Provider Test Date Status RONAK LYNCH 11/27/2023 14:30:50 Final Observation Date Value Abnormality Reference (Units ) Status Triglyceride 11/27/2023 14:30:50 104 <=174 ( mg/dL) Final Triglyceride Reference Range s (mg/dL):
<150 Acceptable
150-174 Borderline high
175-499 High
>=500 Very high Cholesterol 11/27/2023 14:30:50 188 <200 (mg /dL) Final Total Cholesterol Reference Ranges (mg/dL):
<200 Desirable
200-239 Borderline high
>=240 High HDL 11/27/2023 14:30:50 59 >49 (mg/dL ) Final HDL Cholesterol Reference Ra nges (mg/dL):
>=60 High (Desirable)
<50 Low (Undesirable) For Females
<40 Low (Undesirable) For Males NON-HDL CHOLESTEROL 11/27/2023 14:30:50 129 <=159 (mg/dL) Final Non-HDL Cholesterol Referenc e Range (mg/dL):
<100 Target level for high risk ASCVD patient
<130 Optimal for general population
130-159 Near optimal for general population
160-189 Borderline High
190-219 High
>=220 Very High LDL, (calculated) 11/27/2023 14:30:50 108 <= 129 (mg/dL) Final LDL Cholesterol Reference Ra nges (mg/dL):
<70 Target level for high risk ASCVD patient
<100 Optimal for general population
100-129 Near optimal for general population
130-159 Borderline high
160-189 High
>=190 Very high Performing Location [facility] [address] [facility] [address]
--- OUTSIDE RECORDS SUMMARY | 2023-12-06 23:29 | External Medical Summary | Summary of Care ---
Author Name Unknown Organization [facility] Address [address] [place] [address] Phone [phone] Care Team Providers Care Geriatric Case Manager Name Role Phone Toshia Reynaga DO Primary Care Provider [phone] Reason for Visit * Reason Onset Date Comments Advice 11/17/2023 Choi Encounter Details Date Type Department Care Team (Late st Contact Info) Description 11/17/2023 Telephone Hematology/Oncology [facility] [place] [address] [place] [address] Services, Scheduling [address] [place] [address] Advice (Jimbo) Allergies Active Allergy Reactions Criticality [...] release and then it needs faxed to [phone] FYI * Telephone Encounter - Winter Casiano RP - 11/21/2023 11:35 AM EDT Called pt son regarding avatrombopag management and pt hospital status. Son states pt discharged from [facility] 11/19/23 and will have lab drawn by [facility] 11/22/23. Son inquiring if ptshould have provider follow up sooner than 01/03/24. Dr. Choi: Should pt be seen prior to scheduled follow up 01/03/24 given recent hospital admissions and avatrombopag dose adjustments? To note, she follows up with PCP 11/27/23 and Cardiology 11/28/23 Scheduling: can you please call [facility] for most recent admission records and potentially [...] is 7.8. Please call Ibeth valentin from [facility] at [phone] Thank you! documented in this encounter Plan of Treatment Upcoming Encounters Date Type Department Care Team (Late st Contact Info) Description 11/23/2023 9:00 AM EDT Pharmacy Pharmacy Hematology Oncology [facility] [address] [place] [address] [facility] Hem/Onc [address] [place] [address] 11/27/2023 1:20 PM EDT Office Visit [facility] [address] [place] [address] Toshia Reynaga, [address] [place] [address] 11/28/2023 2:30 PM EDT Office Visit Cardiology, [facility] [address] [place] [address] Huong Oseguera CRNP [address] [place] [address] 12/21/2023 1:00 PM EDT Office Visit [facility] [address] [place] [address] Toshia Reynaga, [address] [place] [address] 12/21/2023 2:00 PM EDT Office Visit Cardiology, [facility] [address] [place] [address] Huong Oseguera CRNP [address] [place] [address] 01/03/2024 11:15 AM EDT Office [facility] [place] [address] [facility] [place] [address] Zeeshan Choi MD 200 [facility] [place] [address] 01/24/2024 12:40 PM EDT Office Visit [facility] [address] [place] [address] Toshia Reynaga DO [address] [place] [address] Health Maintenance Due Date Last Done Comments Pneumococcal Vaccine: 65+ Years (1 of 2 - PCV) 09/29/1941 Depression Screening 1947 DTaP,Tdap,and Td Vaccines (1 - Tdap) 09/29/1954 Zoster Vaccines (1 of 2) 09/29/1985 COVID-19 Vaccine (1 - 2022- season) 2023 CKD PHOS USE SMARTSET 75133 11/11/2023 11/10/2022 Influenza Vaccine (FLU shot) (Season Ended) 2024 Albumin/Creatinine Ratio 05/11/2024 05/11/2023, 07/24 O2 ASSESSMENT COMPLETED IN PAST YEAR FOR COPD 10/30/2024 10/31/2023 CKD HGB USE SMARTSET 33815 11/13/202411/13, 11/14/2023, 11/08/2023, Additional history exists DXA [...] filedocumented as of this encounter Care Teams Geriatric Case Manager Relationship Specialty Start Date End Date Toshia Reynaga DO [address] [place] [address] PCP - General Family Medicine 12/07/22 documented as of this encounter
--- OUTSIDE RECORDS SUMMARY | 2023-12-06 23:29 | External Medical Summary | Summary of Care ---
Author Name Unknown Organization [facility] Address [address] [place] [address] Phone [phone] Care Team Providers Care Tanner Rotary Drum Continuous Process Name Role Phone Toshia Reynaga DO Primary Care Provider [phone] Reason for Visit * Reason Comments Outpatient Testing Encounter Details Date Type Department Care Team (Late st Contact Info) Description 11/27/2023 2:50 PM EDT Laboratory Laboratory, [facility] [address] [place] [address] [facility] [address] [place] [address] Atrial fibrillation, unspecified type (HCC) Allergies Active Allergy Reactions Criticality Noted [...] 11/28/2023 2:30 PM EDT Office Visit Janeth [facility] [address] [place] [address] Huong Oseguera CRNP [address] [place] [address] 12/21/2023 2:00 PM EDT [facility] [address] [place] [address] Huong Oseguera CRNP 132 [facility] [place] [address] 01/03/2024 11:00 AM EDT Office Visit Hematology/Oncology [facility] [address] [facility] [phone] Ama Maldonado CRNP [address] [place] [address] 01/24/2024 12:40 PM EDT Office Visit Family Practice [facility] [address] [place] [address] Toshia Reynaga DO 132 [facility] [place] [address] Pending Results Name Type Priority Associated Diagnoses Date /Time COMPREHENSIVE METABOLIC PANEL Lab Routine Atrial fibrillation, unspecified type (HCC) 11/27/2023 2:30 PM EDT TSH WITH FREE T4 IF INDICATED Lab Routine Atrial fibrillation, unspecified type (HCC) 11/27/2023 2:30 PM EDT LIPID PANEL WITH DIRECT LDL IF TG IS HIGH Lab Routine Atrial fibrillation, unspecified type (HCC) 11/27/2023 2:30 PM EDT Health Maintenance Due Date Last Done Comments Pneumococcal Vaccine: 65+ Years (1 of 2 - PCV) 09/29/1941 Depression Screening 1947 DTaP,Tdap,and Td Vaccines (1 - Tdap) 09/29/1954 Zoster Vaccines (1 of 2) 09/29/1985 COVID-19 Vaccine (1 - season) 2023 CKD PHOS USE SMARTSET 96992 11/11/2023 11/10/2022 Influenza Vaccine (FLU shot) (Season Ended) 2024 Albumin/Creatinine Ratio 05/11/2024 05/11/2023, 07/24 O2 ASSESSMENT COMPLETED IN PAST YEAR FOR COPD 10/30/2024 10/31/2023 CKD HGB USE SMARTSET 91567 11/26/2024 05/06 /2024, 11/27/2023, 11/22/2023, Additional history exists DXA Scan [...] Not on filedocumented as of this encounter Procedures Procedure Name Priority Date/Time Associated Diagnosis Comments DIFFERENTIAL, AUTOMATED Routine 11/27/2023 2:30 PM EDT Atrial fibrillation, unspecified type (HCC) CBC Routine 11/27/2023 2:30 PM EDT Atrial fibrillation, unspecified type (HCC) CBC Routine 11/27/2023 2:30 PM EDT Atrial fibrillation, unspecified type (HCC) documented in this encounter Results * (ABNORMAL) DIFFERENTIAL, AUTOMATED (11/27/2023 2:30 PM EDT) WBC 12.50(H) 4.00 - 10.80 K/uL 11/27/2023 2:43 PM EDT LABORATORY [place] 57-10 Neutrophils % 79.7(H) 40.0 - 75.0 % 11/27/2023 2:43 PM EDT LABORATORY [place] 57-10 Lymphocytes % 13.3(L) 18.0 - 42.0 % 11/27/2023 2:43 PM EDT LABORATORY [place] 57-10 Monocytes % 5.4 1.0 - 11.0 % 11/27/2023 2:43 PM EDT LABORATORY [place] 57-10 Eosinophils % 1.0 0.0 - 6.0 % 11/27/2023 2:43 PM EDT LABORATORY [place] 57-10 Basophils % 0.6 0.0 - 2.0 % 11/27/2023 2:43 PM EDT LABORATORY [place] 57-10 Absolute Neutrophils 9.96(H) 1.80 - 7.70 K/uL 11/27/2023 2:43 PM EDT LABORATORY [place] 57-10 Absolute Lymphocytes 1.66 1.00 - 4.80 K/ul 11/27/2023 2:43 PM EDT LABORATORY [place] 57-10 Absolute Monocytes 0.68 0.00 - 1.10 K/uL 11/27/2023 2:43 PM EDT LABORATORY [place] 57-10 Absolute Eosinophils 0.13 0.00 - 0.70 K/uL 11/27/2023 2:43 PM EDT LABORATORY [place] 57-10 Absolute Basophils 0.07 0.00 - 0.20 K/uL 11/27/2023 2:43 PM EDT LABORATORY [place] 57-10 Blood Venous blood specimen / Unknown Venipuncture / Unknown 11/27/2023 2:30 PM EDT 11/27/2023 2:30 PM EDT Toshia Reynaga DO LAB BLOOD ORDERABLE S [facility] 57-10 [address] [place] [address] * (ABNORMAL) CBC (11/27/2023 2:30 PM EDT) WBC 12.50(H) 4.00 - 10.80 K/uL 11/27/2023 2:43 PM EDT LABORATORY [place] 57-10 RBC 2.98 3.85 - 5.15 M/uL 11/27/2023 2:43 PM EDT [facility] HGB 8.7(L) 12.0 - 15.3 g/dL 11/27/2023 2:43 PM EDT LABORATORY [place] 57-10 HCT 28.3(L) 36.0 - 45.2 % 11/27/2023 2:43 PM EDT [facility] MCV 95.0 81.5 - 97.5 fL 11/27/2023 2:43 PM EDT LABORATORY [place] 57-10 MCH 29.2 27.0 - 34.0 pg 11/27/2023 2:43 PM EDT LABORATORY [place] 57-10 MCHC 30.7 32.0 - 36.0 g/dL 11/27/2023 2:43 PM EDT LABORATORY [place] 57-10 RDW 16.2 11.5 - 15.5 % 11/27/2023 2:43 PM EDT LABORATORY [place] 57-10 PLT 810(H) 140 - 400 K/uL 11/27/2023 2:43 PM EDT LABORATORY [place] 57-10 MPV 9.8 6.6 - 11.1 fL 11/27/2023 2:43 PM EDT LABORATORY [place] 57-10 Blood Venous blood specimen / Unknown Venipuncture / Unknown 11/27/2023 2:30 PM EDT 11/27/2023 2:30 PM EDT Toshia Reynaga DO LAB BLOOD ORDERABLE S LABORATORY [place] 57-10 [address] [place] [address] documented in this encounter Visit Diagnoses Diagnosis Atrial fibrillation, unspecified type (HCC) documented in this encounter Care Teams Tanner Rotary Drum Continuous Process Relationship Specialty Start Date End Date Toshia Reynaga DO [address] [place] [address] PCP - General Family Medicine 12/07/22 documented as of this encounter
--- OUTSIDE RECORDS SUMMARY | 2023-12-06 23:29 | External Medical Summary | Summary of Care ---
Author Name Unknown Organization [facility] Address [address] [place] [address] Phone [phone] Care Team Providers Care Boat Rental Clerk Name Role Phone Toshia Reynaga DO Primary Care Provider [phone] Reason for Visit * Reason Comments Medication Management Encounter Details Date Type Department Care Team (Late st Contact Info) Description 11/23/2023 9:00 AM EDT Pharmacy Pharmacy Hematology Oncology [facility] [address], [place] [id number] [facility] Hem/Onc [address], [place] [id number] Chronic ITP (idiopathic thrombocytopenia) ([facility])* Allergies Active Allergy Reactions Criticality Noted Date Comments Lisinopril Other (Please comment) 05/06/2022 Burning in throat documented as of this encounter (statuses as of 11/23/2023) Medications Medication Sig Dispensed Refills Start Date [...] as of this encounter (statuses as of 11/23/2023) Active Problems Problem Noted Date Diagnosed Date [...] as of this encounter (statuses as of 11/23/2023) Resolved Problems Problem Noted Date Diagnosed Date Resolved Date Chronic obstructive pulmonary disease 05/11/2023 06/08/2023 Overview: Per COPD GOLD Classification documented as of this encounter (statuses as of 11/23/2023) Immunizations No known immunizationsdocumented as of this [...] this encounter Progress Notes * Winter Casiano, [facility] - 11/23/2023 10:11 AM EDT MEDICATION THERAPY MANAGEMENT AVATROMBOPAG TREATMENT PROGRESS NOTE Edilma Kennedy [phone] Patient Phone Numbers son Christian Son: Christian Communication: Spoke to: Patient Treatment: Medication: Avatrombopag (Doptelet) Indication/Staging/Diagnosis Code: ITP/D69.3 Dose: 20mg daily ( 09/25/23) Administration: with food Start Date: November 2019 Primary Help Desk Engineer/Oncologist: Dr. Gabriel Choi Additional therapy: Rutiximab x 2 Dose adjustment / medication hold: 09/14/23-09/24/23: avatrombopag held due to thrombocytosis (PLT 919K) 09/25/23: resume avatrombopag at 20mg daily 10/25/23-11/06/23: avatrombopag held due to thrombocytosis (PLT 684K) Interval History: Pt admitted to [facility] 05/23/22 for bleeding and PLT < 10K and transferred to [facility] 05/24/22 and discharged 06/18/22 Per OV 03/09/23, lab monitoring extended to monthly Admitted to [facility] 09/01/23-09/06/23 for CHF/COPD exacerbation - avatrombopag continued during admission despite PLT 718K 09/01/23 Admitted to [facility] 10/18/23-10/22/23 for COPD exacerbation Admitted to [facility] 11/09/23-11/12/23 for thrombocytopenia and received methylprednisolone and increased dose of avatrombopag 40mg daily Admitted to [facility] 11/15/23-11/19/23 for symptomatic a fib and discharged on apixaban Administered avatrombopag 40mg daily while admitted Per TE 11/17/23, pt okay to receive apixaban given elevated PLT Per TE 11/17/23 addendum 11/21/23, pt to keep current Dr. Choi follow up but needs to obtain weekly cbcd Changes to medication list since last visit? No Assessment and plan: Repeat labs from 11/22/23 (under Media) illustrate elevated PLT 960K Hgb > 7 WBC elevated but declining All other labs stable Per discussion with Dr. Choi, continue current avatrombopag dose of 20mg daily Repeat labs with PCP OV 11/26 Assessment of compliance: yes Dose adjustment needed based on lab or adverse drug reaction? No Follow up: 11/26 Winter Casiano, PharmD, BCOP Clinical Pharmacist, [facility] Oral Chemotherapy [facility] 11/23/2023, 10:45 AM Pertinent labs: see Media Time Spent on Encounter: 6 - 10 minutes Encounter Group: Hematology Encounter Interventions Item Category: Oral Chemotherapy Other: Avatrombopag Problem/Rationale: Effectiveness: Needs additional monitoring - Medication Requires monitoring Safety: Needs additional monitoring - Medication Requires monitoring Pharmacist Intervention(s): Clarification with Provider, Lab monitoring, and Toxicity monitoring Magnitude of Intervention: Monitoring with direction (Level 1) documented in this encounter Plan of Treatment Upcoming Encounters Date Type Department Care Team (Late st Contact Info) Description 11/27/2023 9:00 AM EDT Pharmacy Pharmacy Hematology Oncology [facility] [place] [address] [place] [address] [facility] Hem/Onc [address] [place] [address] 11/27/2023 1:20 PM EDT Office Visit Family Practice [facility] [address] [place] [address] Toshia Reynaga, DO [address] [place] [address] 11/28/2023 2:30 PM EDT Office Visit Cardiology, [facility] [address] [place] [address] Huong Oseguera CRNP [address] [place] [address] 12/21/2023 1:00 PM EDT Office Visit [facility] [address] [place] [address] Toshia Reynaga, DO [address] [place] [address] 12/21/2023 2:00 PM EDT Office Visit Cardiology, [facility] [address] [place] [address] Huong Oseguera CRNP [address] [place] [address] 01/03/2024 11:15 AM EDT Office Visit Hematology/Oncology [facility] [place] [address] [place] [phone] Zeeshan Choi MD [address] [place] [address] 01/24/2024 12:40 PM EDT Office Visit Family [facility] [address] [place] [address] Toshia Reynaga DO [address] [place] [address] Health Maintenance Due Date Last Done Comments Pneumococcal Vaccine: 65+ Years (1 of 2 - PCV) 09/29/1941 Depression Screening 1947 DTaP,Tdap,and Td Vaccines (1 - Tdap) 09/29/1954 Zoster Vaccines (1 of 2) 09/29/1985 COVID-19 Vaccine (1 - 2022- season) 2023 CKD PHOS USE SMARTSET 02143 11/11/2023 11/10/2022 Influenza Vaccine (FLU shot) (Season Ended) 2024 Albumin/Creatinine Ratio 05/11/2024 05/11/2023, 07/24 O2 ASSESSMENT COMPLETED IN PAST YEAR FOR COPD 10/30/2024 10/31/2023 CKD HGB USE SMARTSET 28037 11/21/202411/21, 11/14/2023, 11/14/2023, Additional history exists DXA [...] purpura documented in this encounter Care Teams Boat Rental Clerk Relationship Specialty Start Date End Date Toshia Reynaga DO [address] [place] [address] PCP - General Family Medicine 12/07/22 documented as of this encounter
--- OUTSIDE RECORDS SUMMARY | 2023-12-06 23:29 | External Medical Summary | Summary of Care ---
Author Name Unknown Organization [facility] Address [address] [place] [address] Phone [phone] Care Team Providers Care Galley Hand Name Role Phone Toshia Reynaga DO Primary Care Provider [phone] Reason for Visit * Reason Onset Date Comments Advice 11/17/2023 Choi Encounter Details Date Type Department Care Team (Late st Contact Info) Description 11/17/2023 Telephone Hematology/Oncology [facility] [place] [address] [place] [address] Services, Scheduling [address] [place] [address] Advice (Jimbo) Allergies Active Allergy Reactions Criticality [...] encounter Miscellaneous Notes * Telephone Encounter - Gina Goss [facility] - 11/21/2023 12:13 PM EDT Called pilot and had them fax info over * Telephone Encounter - Winter Casiano [facility] - 11/21/2023 11:35 AM EDT Called pt son regarding avatrombopag management and pt hospital status. Son states pt discharged from [facility] 11/19/23 and will have lab drawn by [facility] 11/22/23. Son inquiring if ptshould have provider follow up sooner than 01/03/24. Dr. Choi: Should pt be seen prior to scheduled follow up 01/03/24 given recent hospital admissions and avatrombopag dose adjustments? To note, she follows up with PCP 11/27/23 and Cardiology 5/7/24 Scheduling: can you please call [facility] for most recent admission records and potentially call pt's son for follow up pending Dr. Choi's response? Thanks Dari/Berhane: PEYTONI * Telephone Encounter - Zeeshan Choi MD [...] Eloquist. Hemoglobin is 7.8. Please call Ibeth back from [facility] at [phone] Thank you! documented in this encounter Plan of Treatment Upcoming Encounters Date Type Department Care Team (Late st Contact Info) Description 11/23/2023 9:00 AM EDT Pharmacy Pharmacy Hematology Oncology [address] [address] [facility] Hem/Onc [address] [place], [place] [address] 11/27/2023 1:20 PM EDT Office Visit [facility] [address] [place] [address] Toshia Reynaga, DO [address] [place] [address] 11/28/2023 2:30 PM EDT Office Visit Cardiology, [facility] [address] [place] [address] Huong Oseguera CRNP [address] [place] [address] 12/21/2023 1:00 PM EDT Office Visit [facility] [address] [place] [address] Toshia Reynaga, DO [address] [place] [address] 12/21/2023 2:00 PM EDT Office Visit Cardiology, [facility] [address] [place] [address] Huong Oseguera CRNP [address] [place] [address] 01/03/2024 11:15 AM EDT Office Visit Hematology/Oncology [facility] [place] [address] [place] [phone] Zeeshan Choi MD [address] [place] [address] 01/24/2024 12:40 PM EDT Office Visit [facility] [address] [place] [address] Toshia Reynaga DO [address] [place] [address] Health Maintenance Due Date Last Done Comments Pneumococcal Vaccine: 65+ Years (1 of 2 - PCV) 09/29/1941 Depression Screening 1947 DTaP,Tdap,and Td Vaccines (1 - Tdap) 09/29/1954 Zoster Vaccines (1 of 2) 09/29/1985 COVID-19 Vaccine (1 - 2022- season) 2023 CKD PHOS USE SMARTSET 11634 11/11/2023 11/10/2022 Influenza Vaccine (FLU shot) (Season Ended) 2024 Albumin/Creatinine Ratio 05/11/2024 05/11/2023, 07/24 O2 ASSESSMENT COMPLETED IN PAST YEAR FOR COPD 10/30/2024 10/31/2023 CKD HGB USE SMARTSET 79899 11/13/202411/13, 11/14/2023, 11/08/2023, Additional history exists DXA [...] filedocumented as of this encounter Care Teams Galley Hand Relationship Specialty Start Date End Date Toshia Reynaga DO [address] [place] [address] PCP - General Family Medicine 12/07/22 documented as of this encounter
--- OUTSIDE RECORDS SUMMARY | 2023-12-06 23:29 | External Medical Summary | Summary of Care ---
Author Name Unknown Organization [facility] Address [address] [place] [address] Phone [phone] Care Team Providers Care Wastewater Plant Civil Engineer Name Role Phone Toshia Reynaga DO Primary Care Provider [phone] Encounter Details Date Type Department Care Team (Late st Contact Info) Description 11/22/2023 Orders Only Family Practice [facility] [address] [place] [address] Toshia Reynaga DO [address] [place] [address] Allergies Active Allergy Reactions Criticality Noted Date Comments Lisinopril Other (Please comment) 05/06/2022 Burning in throat documented as of this encounter (statuses as of 11/22/2023) Medications Medication Sig Dispensed Refills Start Date [...] as of this encounter (statuses as of 11/22/2023) Active Problems Problem Noted Date Diagnosed Date [...] as of this encounter (statuses as of 11/22/2023) Resolved Problems Problem Noted Date Diagnosed Date Resolved Date Chronic obstructive pulmonary disease 05/11/2023 06/08/2023 Overview: Per COPD GOLD Classification documented as of this encounter (statuses as of 11/22/2023) Immunizations No known immunizationsdocumented as of this encounter Social History Tobacco Use Types Packs/Day Years Used Date Smoking Tobacco: Former Cigarettes 0.3 5 1 974 - 1627 Passive Smoke Exposure: Never Smokeless Tobacco: Never [...] 9:00 AM EDT Pharmacy Pharmacy Hematology Oncology [place] [address] [place] [address] Gm, [facility] Hem/Onc [address] [place] [address] 11/27/2023 1:20 PM EDT Office Visit Family Practice [facility] [address] [place] [address] Toshia Reynaga DO [address] [place] [address] 11/28/2023 2:30 PM EDT Office Visit Cardiology, [facility] [address] [place] [address] Huong Oseguera CRNP [address] [place] [address] 12/21/2023 1:00 PM EDT Office Visit Family Practice [facility] [address] [place] [address] Toshia Reynaga, DO [address] [place] [address] 12/21/2023 2:00 PM EDT Office Visit Cardiology, [facility] [address] [place] [address] Huong Oseguera CRNP [address] [place] [address] 01/03/2024 11:15 AM EDT Office Visit Hematology/Oncology [facility] [address] [facility] [place] [phone] Zeeshan Choi MD [address] [facility] [place] [address] 01/24/2024 12:40 PM EDT Office Visit [facility] [address] [place] [address] Toshia Reynaga, DO [address] [place] [address] Health Maintenance Due Date Last Done Comments Pneumococcal Vaccine: 65+ Years (1 of 2 - PCV) 09/29/1941 Depression Screening 1947 DTaP,Tdap,and Td Vaccines (1 - Tdap) 09/29/1954 Zoster Vaccines (1 of 2) 09/29/1985 COVID-19 Vaccine (1 - 2022-24 season) 2023 CKD PHOS USE SMARTSET 02664 11/11/2023 11/10/2022 Influenza Vaccine (FLU shot) (Season Ended) 2024 Albumin/Creatinine Ratio 05/11/2024 05/11/2023, 07/24 O2 ASSESSMENT COMPLETED IN PAST YEAR FOR COPD 10/30/2024 10/31/2023 CKD HGB USE SMARTSET 49431 11/13/202411/21, 11/14/2023, 11/14/2023, Additional history exists DXA Scan [...] Procedure Name Priority Date/Time Associated Diagnosis Comments CHEMISTRY-OUTSIDE Routine 11/22/2023 documented in this encounter Results * (ABNORMAL) CHEMISTRY-OUTSIDE (11/22/2023) Not all results display below - see scan for full detail SEE SCAN: CBCD, BMP OUTSIDE LAB (SEE SCANNED REPORT) CREATININE-OUTSID E LAB 1.18(H) 0.55 - 1.02 MG/DL OUTSIDE LAB (SEE SCANNED REPORT) EGFR-OUTSIDE LAB 44(L) >=60 ML/MIN/1. 73M2 OUTSIDE LAB (SEE SCANNED REPORT) POTASSIUM-OUTSIDE LAB 4.5 3.5 - 5.1 MMOL/L OUTSIDE LAB (SEE SCANNED REPORT) GLUCOSE-OUTSIDE LAB 105 70 - 110 MG/DL OUTSIDE LAB (SEE SCANNED REPORT) HOURS FASTING OUTSID E LAB (SEE SCANNED REPORT) TRIGLYCERIDES-OUT SIDE LAB OUTSIDE LAB (SEE SCANNED REPORT) CHOLESTEROL-OUTSI DE LAB OUTSIDE LAB (SEE SCANNED REPORT) HDL-OUTSIDE LAB OUTS [facility] (SEE SCANNED REPORT) CHOL/HDL RATIO-OUTSIDE LAB OUTSIDE LA B (SEE SCANNED REPORT) LDL (CALCULATED)-OUTS [facility] OUTSIDE LAB (SEE SCANNED REPORT) LDL (DIRECT MEASURE)-OUTSIDE LAB OUTSIDE LAB (SEE SCANNED REPORT) HEMOGLOBIN, G0U-UZCFERQ LAB OUTSIDE LAB (SEE SCANNED REPORT) PHOSPHORUS-OUTSID E LAB OUTSIDE LAB (SEE SCANNED REPORT) PTH-OUTSIDE LAB OUTS [facility] (SEE SCANNED REPORT) MICROALBUMIN RATIO-OUTSIDE LAB OUTSIDE LA B (SEE SCANNED REPORT) PROTEIN, UA-OUTSIDE LAB OUTSIDE LAB (SEE SCANNED REPORT) HGB 7.9(L) 12.0 - 16.0 GM/DL OUTSIDE LAB (SEE SCANNED REPORT) 11/22/2023 Toshia Reynaga DO LABORATORY OUTSIDE LAB (SEE SCANNED REPORT) documented in this encounter Care Teams Wastewater Plant Civil Engineer Relationship Specialty Start Date End Date Toshia Reynaga DO [address] [place] [address] PCP - General Family Medicine 12/07/22 documented as of this encounter
--- OUTSIDE RECORDS SUMMARY | 2023-12-06 23:29 | External Medical Summary ---
Author Name Unknown Address Unknown Organization [facility] [address] [place] [address] Laboratory Report Ordering Provider Test Date Status RONAK LYNCH 11/27/2023 14:30:50 Final Observation Date Value Abnormality Reference (Units ) Status WBC, Total 11/27/2023 14:30:50 12.50 Above high normal 4 .00-10.80 (K/uL) Final RBC 11/27/2023 14:30:50 2.98 3.85-5.15 (M/uL) Final Hemoglobin 11/27/2023 14:30:50 8.7 Below low normal 12 .0-15.3 (g/dL) Final HCT 11/27/2023 14:30:50 28.3 Below low normal 36. 0-45.2 (%) Final MCV 11/27/2023 14:30:50 95.0 81.5-97.5 (fL) Final MCH 11/27/2023 14:30:50 29.2 27.0-34.0 (pg) Final MCHC 11/27/2023 14:30:50 30.7 32.0-36.0 (g/dL) Final RDW 11/27/2023 14:30:50 16.2 11.5-15.5 (%) Final Platelets 11/27/2023 14:30:50 810 Above high normal 14 0-400 (K/uL) Final MPV 11/27/2023 14:30:50 9.8 6.6-11.1 ( fL) Final Performing Location [facility] [address] [place] [address]
--- OUTSIDE RECORDS SUMMARY | 2023-12-06 23:29 | External Medical Summary | Summary of Care ---
Author Name Unknown Organization [facility] Address [address] [place] [address] Phone [phone] Care Team Providers Care Primer Powder Blender Wet Name Role Phone Toshia Reynaga DO Primary Care Provider [phone] Reason for Visit * Reason Comments Medication Management Encounter Details Date Type Department Care Team (Late st Contact Info) Description 11/27/2023 9:00 AM EDT Pharmacy Pharmacy Hematology Oncology [facility] [address], [place] [phone] [facility] Hem/Onc [address] [place], [place] [phone] Chronic ITP (idiopathic thrombocytopenia) ([facility])* Allergies Active Allergy Reactions Criticality Noted Date [...] this encounter Progress Notes * Winter Casiano, [facility] - 11/27/2023 3:14 PM EDT MEDICATION THERAPY MANAGEMENT AVATROMBOPAG TREATMENT PROGRESS NOTE Edilma Kennedy [phone] Patient Phone Numbers son Christian Son: Christian Communication: Spoke to: Son Treatment: Medication: Avatrombopag (Doptelet) Indication/Staging/Diagnosis Code: ITP/D69.3 Dose: 20mg daily ( 09/25/23) Administration: with food Start Date: November 2019 Primary Prep Room Supervisor/Oncologist: Dr. Gabriel Choi Additional therapy: Rutiximab x 2 Dose adjustment / medication hold: 09/14/23-09/24/23: avatrombopag held due to thrombocytosis (PLT 919K) 09/25/23: resume avatrombopag at 20mg daily 10/25/23-11/06/23: avatrombopag held due to thrombocytosis (PLT 684K) Interval History: Pt admitted to [facility] 05/23/22 for bleeding and PLT < 10K and transferred to [facility] 05/24/22 and discharged 06/18/22 Per OV 03/09/23, lab monitoring extended to monthly Admitted to [facility] 09/01/23-09/06/23 for CHF/COPD exacerbation - avatrombopag continued during admission despite PLT 718K 09/01/23 Admitted to [facility] 10/18/23-10/22/23 for COPD exacerbation Admitted to [facility] 11/09/23-11/12/23 for thrombocytopenia and received methylprednisolone and increased dose of avatrombopag 40mg daily Admitted to [facility] 11/15/23-11/19/23 for symptomatic a fib and discharged on apixaban Administered avatrombopag 40mg daily while admitted Per TE 11/17/23, pt okay to receive apixaban given elevated PLT Per TE 11/17/23 addendum 11/21/23, pt to keep current Dr. Choi follow up but needs to obtain weekly cbcd Changes to medication list since last visit? No Assessment and plan: PLT elevated but declining All other labs stable Per discussion with Dr. Choi via TT, continue current avatrombopag dose Repeat labs in 1 week (scheduled 12/03 @1030) Assessment of compliance: compliant Dose adjustment needed based on lab or adverse drug reaction? No Follow up: 1 week Winter Casiano, PharmD, BCOP Clinical Pharmacist, [facility] Oral Chemotherapy [facility] 11/27/2023, 3:24 PM Pertinent labs: Latest Reference Range & Units 11/27/23 14:30 WBC 4.00 - 10.80 K/uL 12.50 (H) RBC 3.85 - 5.15 M/uL 2.98 HGB 12.0 - 15.3 g/dL 8.7 (L) HCT 36.0 - 45.2 % 28.3 (L) MCV 81.5 - 97.5 fL 95.0 MCH 27.0 - 34.0 pg 29.2 MCHC 32.0 - 36.0 g/dL 30.7 RDW 11.5 - 15.5 % 16.2 PLT 140 - 400 K/uL 810 (H) MPV 6.6 - 11.1 fL 9.8 CBC WITH WBC DIFFERENTIAL Rpt ! Absolute Neutrophils 1.80 - 7.70 K/uL 9.96 (H) Time Spent on Encounter: 6 - 10 minutes Encounter Group: Hematology Encounter Interventions Item Category: Oral Chemotherapy Other: Avatrombopag Problem/Rationale: Effectiveness: Needs additional monitoring - Medication Requires monitoring Safety: Needs additional monitoring - Medication Requires monitoring Pharmacist Intervention(s): Care coordination, Clarification with Provider, and Lab monitoring Magnitude of Intervention: Monitoring with direction (Level 1) documented in this encounter Plan of Treatment Upcoming Encounters Date Type Department Care Team (Late st Contact Info) Description 11/28/2023 2:30 PM EDT Office Visit Cardiology, [facility] [address] [place] [address] Huong Oseguera CRNP [address] [place] [address] 12/04/2023 9:00 AM EDT Pharmacy Pharmacy Hematology Oncology [facility] [address] [place] [address] [facility], [facility] Hem/Onc [address] [place] [address] 12/04/2023 10:30 AM EDT Laboratory Laboratory, [facility] [address] [place] [phone] [place] [address] [place] [address] 12/21/2023 2:00 PM EDT Office Visit Cardiology, [facility] [address] [place] [address] Huong Oseguera CRNP [address] [place] [address] 01/03/2024 11:00 AM EDT Office Visit Hematology/Oncology [facility] [address] [facility] [address] [address] [place] [phone] Ama Maldonado CRNP [address] [place] [address] 01/24/2024 12:40 PM EDT Office Visit Family Practice [facility] [address] [place] [address] Toshia Reynaga DO [address] [place] [address] Health Maintenance Due Date Last Done Comments Pneumococcal Vaccine: 65+ Years (1 of 2 - PCV) 09/29/1941 Depression Screening 1947 DTaP,Tdap,and Td Vaccines (1 - Tdap) 09/29/1954 Zoster Vaccines (1 of 2) 09/29/1985 COVID-19 Vaccine (1 - season) 2023 CKD PHOS USE SMARTSET 81917 11/11/2023 11/10/2022 Influenza Vaccine (FLU shot) (Season Ended) 2024 Albumin/Creatinine Ratio 05/11/2024 05/11/2023, 07/24 O2 ASSESSMENT COMPLETED IN PAST YEAR FOR COPD 10/30/2024 10/31/2023 CKD HGB USE SMARTSET 49048 11/26/202411/26, 11/27/2023, 11/22/2023, Additional history exists DXA [...] purpura documented in this encounter Care Teams Primer Powder Blender Wet Relationship Specialty Start Date End Date Toshia Reynaga DO [address] [place] [address] PCP - General Family Medicine 12/07/22 documented as of this encounter
--- OUTSIDE RECORDS SUMMARY | 2023-12-06 23:29 | External Medical Summary | Summary of Care ---
Author Name Unknown Organization [facility] Address [address] [place] [address] Phone [phone] Care Team Providers Care Education Consultant Name Role Phone Toshia Reynaga DO Primary Care Provider [phone] Reason for Visit * Reason Onset Date Comments Advice 11/17/2023 Choi Encounter Details Date Type Department Care Team (Late st Contact Info) Description 11/17/2023 Telephone Hematology/Oncology [facility] [place] [address] [place] [address] Services, Scheduling [address] [place] [address] Advice (Jimbo) Allergies Active Allergy Reactions Criticality [...] OSA - 11/21/2023 12:13 PM EDT Called [facility] and they stated that patient will need to sign release and then it needs faxed to [phone] FYI * Telephone Encounter - Winter Casiano [facility] - 11/21/2023 11:35 AM EDT Called pt son regarding avatrombopag management and pt hospital status. Son states pt discharged from [facility] 11/19/23 and will have lab drawn by [facility] 11/22/23. Son inquiring if ptshould have provider follow up sooner than 01/03/24. Dr. Choi: Should pt be seen prior to scheduled follow up 01/03/24 given recent hospital admissions and avatrombopag dose adjustments? To note, she follows up with PCP 11/27/23 and Cardiology 11/28/23 Scheduling: can you please call [facility] for most recent admission records and [...] is 7.8. Please call Ibeth back from [facility] at [phone] Thank you! documented in this encounter Plan of Treatment Upcoming Encounters Date Type Department Care Team (Late st Contact Info) Description 11/23/2023 9:00 AM EDT Pharmacy Pharmacy Hematology Oncology [address] [place] [address] [facility], [facility] Hem/Onc [address] [place] [address] 11/27/2023 1:20 PM EDT Office Visit [facility] [address] [place] [address] Toshia Reynaga, [address] [place] [address] 11/28/2023 2:30 PM EDT Office Visit Cardiology, [facility] [address] [place] [address] Huong Oseguera CRNP [address] [place] [address] 12/21/2023 1:00 PM EDT Office Visit [facility] [address] [place] [address] Toshia Reynaga, [address] [place] [address] 12/21/2023 2:00 PM EDT Office Visit Cardiology, [facility] [address] [place] [address] Huong Oseguera CRNP [address] [place] [address] 01/03/2024 11:15 AM EDT Office Visit Hematology/Oncology [facility] [place] [address] [place] [phone] Zeeshan Choi MD [address] [place] [address] 01/24/2024 12:40 PM EDT Office Visit [facility] [place] [address] [place] [address] Toshia Reynaga DO [address] [place] [address] Health Maintenance Due Date Last Done Comments Pneumococcal Vaccine: 65+ Years (1 of 2 - PCV) 09/29/1941 Depression Screening 1947 DTaP,Tdap,and Td Vaccines (1 - Tdap) 09/29/1954 Zoster Vaccines (1 of 2) 09/29/1985 COVID-19 Vaccine (1 - season) 2023 CKD PHOS USE SMARTSET 29411 11/11/2023 11/10/2022 Influenza Vaccine (FLU shot) (Season Ended) 2024 Albumin/Creatinine Ratio 05/11/2024 05/11/2023, 07/24 O2 ASSESSMENT COMPLETED IN PAST YEAR FOR COPD 10/30/2024 10/31/2023 CKD HGB USE SMARTSET 79057 11/13/202411/13, 11/14/2023, 11/08/2023, Additional history exists DXA [...] filedocumented as of this encounter Care Teams Education Consultant Relationship Specialty Start Date End Date Toshia Reynaga DO [address] [place] [address] PCP - General Family Medicine 12/07/22 documented as of this encounter
--- OUTSIDE RECORDS SUMMARY | 2023-12-06 23:29 | External Medical Summary ---
Author Name Unknown Address Unknown Organization K0G[facility] [facility] [address] [place] [address] Laboratory Report Ordering Provider Test Date Status RONAK LYNCH 11/27/2023 14:30:50 Final Observation Date Value Abnormality Reference (Units ) Status SYNC LEUKOCYTES IN BLOOD BY AUTOMATED COUNT 11/27/2023 14:30:50 12.50 Above high normal 4.00-10.80 (K/uL) Final Segs 11/27/2023 14:30:50 79.7 Above high normal 40.0-75.0 (%) Final Lymphs % 11/27/2023 14:30:50 13.3 Below low normal 18.0-42.0 (%) Final Monos 11/27/2023 14:30:50 5.4 1.0-11.0 (%) Final Eosinophils 11/27/2023 14:30:50 1.0 0.0-6.0 (%) Final Basos 11/27/2023 14:30:50 0.6 0.0-2.0 (%) Final Absolute Segs 11/27/2023 14:30:50 9.96 Above high normal 1.80-7.70 (K/uL) Final Lymphs, absolute 11/27/2023 14:30:50 1.66 1.00-4.80 (K/ul) Final Monos, Abs 11/27/2023 14:30:50 0.68 0.00-1.10 (K/uL) Final Eos, Abs 11/27/2023 14:30:50 0.13 0.00-0.70 (K/uL) Final Basos, Abs 11/27/2023 14:30:50 0.07 0.00-0.20 (K/uL) Final Performing Location [facility] [address] [place] [address]
--- OUTSIDE RECORDS SUMMARY | 2023-12-06 23:30 | External Medical Summary | Summary of Care ---
Author Name Unknown Organization [facility] Address [address] [place] [address] Phone [phone] Care Team Providers Care Sprinkler Irrigation Equipment Mechanic Name Role Phone Toshia Reyngaa DO Primary Care Provider [phone] Reason for Visit * Reason Onset Date Comments Advice 11/17/2023 Choi Encounter Details Date Type Department Care Team (Late st Contact Info) Description 11/17/2023 Telephone Hematology/Oncology [facility] [place] [address] [place] [address] Services, Scheduling [address] [place] [address] Advice (Jimbo) Allergies Active Allergy Reactions Criticality Noted Date Comments Lisinopril Other (Please comment) 05/06/2022 Burning in throat documented as of this encounter (statuses as of 11/20/2023) Medications Medication Sig Dispensed Refills Start Date [...] as of this encounter (statuses as of 11/20/2023) Active Problems Problem Noted Date Diagnosed Date [...] as of this encounter (statuses as of 11/20/2023) Resolved Problems Problem Noted Date Diagnosed Date Resolved Date Chronic obstructive pulmonary disease 05/11/2023 06/08/2023 Overview: Per COPD GOLD Classification documented as of this encounter (statuses as of 11/20/2023) Immunizations No known immunizationsdocumented as of this [...] Moore OSA - 11/17/2023 11:12 AM EDT Choi pt. Pt's Platelet count is 5.4. She is currently taking Doptelet 20mg daily. Ibeth wants to confirm if doctor wants pt to stay on this dose or not. Also, pt is suppossed to start Eloquist. Hemoglobin is 7.8. Please call Ibeth back from [facility] at [phone] Thank you! documented in this encounter Plan of Treatment Upcoming Encounters Date Type Department Care Team (Late st Contact Info) Description 11/21/2023 9:00 AM EDT Pharmacy Pharmacy Hematology Oncology [facility] [place] [address] [place] [address] [facility], [facility] Hem/Onc [address] [place] [address] 12/21/2023 1:00 PM EDT Office Visit [facility] [address] [place] [address] Toshia Reynaga DO [address] [place] [address] 12/21/2023 2:00 PM EDT Office Visit Cardiology, [facility] [address] [place] [address] Huong Oseguera CRNP [address] [place] [address] 01/03/2024 11:15 AM EDT Office Visit Hematology/Oncology [facility] [place] [address] [place] [phone] Zeeshan Choi MD [address] [place] [address] 01/24/2024 12:40 PM EDT Office Visit Family Practice [facility] [address] [place] [address] Toshia Reynaga DO [address] [place] [address] Health Maintenance Due Date Last Done Comments Pneumococcal Vaccine: 65+ Years (1 of 2 - PCV) 09/29/1941 Depression Screening 1947 DTaP,Tdap,and Td Vaccines (1 - Tdap) 09/29/1954 Zoster Vaccines (1 of 2) 09/29/1985 COVID-19 Vaccine (1 - season) 2023 CKD PHOS USE SMARTSET 78498 11/11/2023 11/10/2022 Influenza Vaccine (FLU shot) (Season Ended) 2024 Albumin/Creatinine Ratio 05/11/2024 05/11/2023, 07/24 O2 ASSESSMENT COMPLETED IN PAST YEAR FOR COPD 10/30/2024 10/31/2023 CKD HGB USE SMARTSET 54392 11/13/202411/13, 11/14/2023, 11/08/2023, Additional history exists DXA [...] filedocumented as of this encounter Care Teams Sprinkler Irrigation Equipment Mechanic Relationship Specialty Start Date End Date Toshia Reynaga DO [address] [place] [address] PCP - General Family Medicine 12/07/22 documented as of this encounter
--- OUTSIDE RECORDS SUMMARY | 2023-12-06 23:30 | External Medical Summary | Summary of Care ---
Author Name Unknown Organization [facility] Address [address] [place] [address] Phone [phone] Care Team Providers Care Case Assistant Name Role Phone Toshia Reynaga DO Primary Care Provider [phone] Reason for Visit * Reason Onset Date Comments Advice 11/17/2023 Choi Encounter Details Date Type Department Care Team (Late st Contact Info) Description 11/17/2023 Telephone Hematology/Oncology [facility] [place] [address] [place] [address] Services, Scheduling [address] [place] [address] Advice (Jimbo) Allergies Active Allergy Reactions Criticality [...] encounter Miscellaneous Notes * Telephone Encounter - Winter Casiano RPh - 11/21/2023 11:35 AM EDT Called pt son regarding avatrombopag management and pt hospital status. Son states pt discharged from [facility] 11/19/23 and will have lab drawn by [facility] 11/22/23. Son inquiring if ptshould have provider follow up sooner than 01/03/24. Dr. Choi: Should pt be seen prior to scheduled follow up 01/03/24 given recent hospital admissions and avatrombopag dose adjustments? To note, she follows up with PCP 11/27/23 and Cardiology 11/28/23 Scheduling: can you please call [facility] for most recent admission records and potentially call pt's son for follow up pending Dr. Choi's response? Thanks Dari/Berhane: SHANE * Telephone Encounter - Zeeshan Choi MD - 11/20/2023 10:30 AM EDT Continue Doptelet at the same dose. She is on Eliquis now. * Telephone Encounter - Berhane Tucker, JANKI - 11/17/2023 12:40 PM EDT Called Nehemiah [...] is 7.8. Please call Ibeth back from [facility] at [phone] Thank you! documented in this encounter Plan of Treatment Upcoming Encounters Date Type Department Care Team (Late st Contact Info) Description 11/27/2023 1:20 PM EDT Office Visit Family Practice [facility] [address] [place] [address] Toshia Reynaga DO [address] [place] [address] 11/28/2023 2:30 PM EDT Office Visit Cardiology, [facility] [address] [place] [address] Huong Oseguera CRNP [address] [place] [address] 12/21/2023 1:00 PM EDT Office Visit [facility] [address] [place] [address] Toshia Reynaga, [address] [place] [address] 12/21/2023 2:00 PM EDT Office Visit Cardiology, [facility] [address] [place] [address] Huong Oseguera CRNP [address] [place] [address] 01/03/2024 11:15 AM EDT Office Visit Hematology/Oncology [facility] [address] [facility] [place] [phone] Zeeshan Choi MD [address] [facility] [place] [address] 01/24/2024 12:40 PM EDT Office Visit [facility] [address] [place] [address] Toshia Reynaga, [address] [place] [address] Health Maintenance Due Date Last Done Comments Pneumococcal Vaccine: 65+ Years (1 of 2 - PCV) 09/29/1941 Depression Screening 1947 DTaP,Tdap,and Td Vaccines (1 - Tdap) 09/29/1954 Zoster Vaccines (1 of 2) 09/29/1985 COVID-19 Vaccine (1 - 2022-24 season) 2023 CKD PHOS USE SMARTSET 38460 11/11/2023 11/10/2022 Influenza Vaccine (FLU shot) (Season Ended) 2024 Albumin/Creatinine Ratio 05/11/2024 05/11/2023, 07/24 O2 ASSESSMENT COMPLETED IN PAST YEAR FOR COPD 10/30/2024 10/31/2023 CKD HGB USE SMARTSET 88428 11/13/202411/13, 11/14/2023, 11/08/2023, Additional history exists DXA [...] filedocumented as of this encounter Care Teams Case Assistant Relationship Specialty Start Date End Date Toshia Reynaga DO [address] [place] [address] PCP - General Family Medicine 12/07/22 documented as of this encounter
--- OUTSIDE RECORDS SUMMARY | 2023-12-06 23:30 | External Medical Summary | Summary of Care ---
Author Name Unknown Organization [facility] Address [address] [place] [address] Phone [phone] Care Team Providers Care Director Prison Name Role Phone Toshia Reynaga DO Primary Care Provider [phone] Reason for Visit * Reason Onset Date Comments Advice 11/16/2023 Encounter Details Date Type Department Care Team (Late st Contact Info) Description 11/16/2023 Telephone Hematology/Oncology [facility] [place] [address] [facility] [place] [address] Zeeshan Choi MD [address] [facility] [place] [address] Advice Allergies Active Allergy Reactions Criticality Noted Date Comments Lisinopril Other (Please comment) 05/06/2022 Burning in throat documented as of this encounter (statuses as of 11/16/2023) Medications Medication Sig Dispensed Refills Start Date [...] as of this encounter (statuses as of 11/16/2023) Active Problems Problem Noted Date Diagnosed Date [...] as of this encounter (statuses as of 11/16/2023) Resolved Problems Problem Noted Date Diagnosed Date Resolved Date Chronic obstructive pulmonary disease 05/11/2023 06/08/2023 Overview: Per COPD GOLD Classification documented as of this encounter (statuses as of 11/16/2023) Immunizations No known immunizationsdocumented as of this [...] Telephone Encounter - Zeeshan Choi MD - 11/16/2023 2:16 PM EDT -As long as Platelet counts is in the normal range, she can receive Eliquis anticoagulant treatment. * Telephone Encounter - Berhane Tucker RN - 11/16/2023 1:22 PM EDT Spoke to the hospitalist with [facility] - She presented with Afib, platelet counts have been stable, however, they are prescribing the patient Eliquis. Dr. Choi and concerns or questions regarding patient starting Eliquis please call the following #:[phone] * Telephone Encounter - Berhane Tucker RN - 11/16/2023 8:52 AM EDT Called the # back. Went straight to VM. Left VM with return #. * Telephone Encounter - Jackie Smith OSA - 11/16/2023 8:32 AM EDT Beba from [facility] is calling to speak with someone about the patient, she is currently admitted , needs to discuss anticoagulation Please call her back to discuss. documented in this encounter Plan of Treatment Upcoming Encounters Date Type Department Care Team (Late st Contact Info) Description 11/21/2023 9:00 AM EDT Pharmacy Pharmacy Hematology Oncology [facility] [address] [place] [address] [facility], [facility] Hem/Onc [facility] [place] [address] 12/21/2023 1:00 PM EDT Office Visit Family Practice [facility] [address] [place] [address] Toshia Reynaga DO [address] [place] [address] 12/21/2023 2:00 PM EDT Office Visit Cardiology, [facility] [address] [place] [address] Huong Oseguera CRNP [address] [place] [address] 01/03/2024 11:15 AM EDT Office Visit Hematology/Oncology [facility] [place] [address] [place] [phone] Zeeshan Choi MD 200 [facility] [place] [address] 01/24/2024 12:40 PM EDT Office Visit Family Practice [facility] [address] [place] [address] Toshia Reynaga DO [address] [place] [address] Health Maintenance Due Date Last Done Comments Pneumococcal Vaccine: 65+ Years (1 of 2 - PCV) 09/29/1941 Depression Screening 1947 DTaP,Tdap,and Td Vaccines (1 - Tdap) 09/29/1954 Zoster Vaccines (1 of 2) 09/29/1985 COVID-19 Vaccine (1 - 2022- season) 2023 CKD PHOS USE SMARTSET 70808 11/11/2023 11/10/2022 Influenza Vaccine (FLU shot) (Season Ended) 2024 Albumin/Creatinine Ratio 05/11/2024 05/11/2023, 07/24 O2 ASSESSMENT COMPLETED IN PAST YEAR FOR COPD 10/30/2024 10/31/2023 CKD HGB USE SMARTSET 17744 11/13/202411/13, 11/14/2023, 11/08/2023, Additional history exists DXA [...] filedocumented as of this encounter Care Teams Director Prison Relationship Specialty Start Date End Date Toshia Reynaga DO [address] [place] [address] PCP - General Family Medicine 12/07/22 documented as of this encounter
--- OUTSIDE RECORDS SUMMARY | 2023-12-06 23:30 | External Medical Summary | Summary of Care ---
Author Name Unknown Organization [facility] Address [address] [place] [address] Phone [phone] Care Team Providers Care Fish Cutter Name Role Phone Toshia Reynaga DO Primary Care Provider [phone] Reason for Visit * Reason Onset Date Comments Emergency Department 11/09/2023 [facility] Encounter Details Date Type Department Care Team (Late st Contact Info) Description 11/09/2023 Telephone Hematology/Oncology [facility] [place] [address] [facility] [place] [phone] Zeeshan Choi MD [address] [facility] [place] [address] Emergency Department ([facility]) Allergies Active Allergy Reactions Criticality Noted Date Comments Lisinopril Other (Please comment) 05/06/2022 Burning in throat documented as of this encounter (statuses as of 11/15/2023) Medications Medication Sig Dispensed Refills Start Date [...] as of this encounter (statuses as of 11/15/2023) Active Problems Problem Noted Date Diagnosed Date [...] as of this encounter (statuses as of 11/15/2023) Resolved Problems Problem Noted Date Diagnosed Date Resolved Date Chronic obstructive pulmonary disease 05/11/2023 06/08/2023 Overview: Per COPD GOLD Classification documented as of this encounter (statuses as of 11/15/2023) Immunizations No known immunizationsdocumented as of this encounter Social History Tobacco Use Types Packs/Day Years Used Date Smoking Tobacco: Former Cigarettes 0.3 5 1 974 - 1842 Passive Smoke Exposure: Never Smokeless Tobacco: Never [...] encounter Miscellaneous Notes * Telephone Encounter - Dari Umanzor RN - 11/15/2023 8:16 AM EDT Per PCP note yesterday, patient was sent back to ER after fall. Plt 277. Called patients son, he confirmed that patient went to ER and was kept overnight. He is not sure ifshe will be discharged home today or if they will keep her another few days. Advised him to call our office when she is discharged so that we can obtain records from [facility], advise on doptelet dose, and schedule follow up with our office. Provided phone number for office. He verbalized understanding. * Telephone Encounter - Berhane Tucker RN - 11/09/2023 10:57 AM EDT Called patients son, advised regarding medication. Asked patients son to call us once patient is discharged from the hospital so we can schedule a follow up with Dr. Choi. * Telephone Encounter - Zeeshan Choi MD - 11/09/2023 10:49 AM EDT She should be taking Doptelet 20 mg once a day while admitted in the hospital. Please let her son know who can relay that information to the treating team in the hospital. We should see her once she is discharged from the hospital. * Telephone Encounter - Lise Grajeda LPN - 11/09/2023 8:[address] Choi: Son Christian would like you to be made aware: Patient's son, Christian called to make Dr. Choi aware patient was admitted to the [facility] ED yesterday, 11/08/2023 due to the following patient complaints; per patient request for c/o "black stool" and "bloody nose". He reports her Platelet count is 5,000. Patient is to be transferred this morning to [facility] for further treatment. Son reports, "no beds at [place], [place], or [facility]". Son is requesting a sooner appointment than December to follow up with Dr. Choi to discuss "getting the" Doptelet "back on tract". He states the patient was instructed to hold the medication for the "past two weeks". [facility] Lab/ CXR results and ED notes scanned in. Hgb: 10.2, Hct 32.6 PLT: 5 documented in this encounter Plan of Treatment Upcoming Encounters Date Type Department Care Team (Late st Contact Info) Description 11/21/2023 9:00 AM EDT Pharmacy Pharmacy Hematology Oncology [address] [address] [facility], [facility] Hem/Onc [facility] [place] [address] 12/21/2023 1:00 PM EDT Office Visit Family Practice [facility] [address] [place] [address] Toshia Reynaga, [address] [place] [address] 12/21/2023 2:00 PM EDT Office [facility] [place] [address] Huong Oseguera CRNP 132 [facility] [place] [address] 01/03/2024 11:15 AM EDT Office Visit Hematology/Oncology [facility] [address] [facility] [place] [phone] Zeeshan Choi MD 200 [facility] [place] [address] 01/24/2024 12:40 PM EDT Office Visit [facility] [address] [place] [address] Toshia Reynaga, 132 [facility] [place] [address] Health Maintenance Due Date Last Done Comments Pneumococcal Vaccine: 65+ Years (1 of 2 - PCV) 09/29/1941 Depression Screening 1947 DTaP,Tdap,and Td Vaccines (1 - Tdap) 09/29/1954 Zoster Vaccines (1 of 2) 09/29/1985 COVID-19 Vaccine (1 - 2022- season) 2023 CKD PHOS USE SMARTSET 31828 11/11/2023 11/10/2022 Influenza Vaccine (FLU shot) (Season Ended) 2024 Albumin/Creatinine Ratio 05/11/2024 05/11/2023, 07/24 O2 ASSESSMENT COMPLETED IN PAST YEAR FOR COPD 10/30/2024 10/31/2023 CKD HGB USE SMARTSET 17306 11/13/202411/13, 11/08/2023, 11/08/2023, Additional history exists DXA Scan 12/07/2032 [...] filedocumented as of this encounter Care Teams Fish Cutter Relationship Specialty Start Date End Date Toshia Reynaga DO [address] [place] [address] PCP - General Family Medicine 12/07/22 documented as of this encounter
--- OUTSIDE RECORDS SUMMARY | 2023-12-06 23:30 | External Medical Summary | Summary of Care ---
Author Name Unknown Organization [facility] Address [address] [place] [address] Phone [phone] Care Team Providers Care Final Block Press Operator Name Role Phone Toshia Reynaga DO Primary Care Provider [phone] Reason for Visit * Reason Onset Date Comments Advice 11/17/2023 Choi Encounter Details Date Type Department Care Team (Late st Contact Info) Description 11/17/2023 Telephone Hematology/Oncology [facility] Roll [address] [place] [address] Services, Scheduling [address] [place] [address] Advice (Jimbo) Allergies Active Allergy Reactions Criticality [...] encounter Miscellaneous Notes * Telephone Encounter - Berhane Tucker RN [...] 7.8. Please call Ibeth back from [facility] at [phone] Thank you! documented in this encounter Plan of Treatment Upcoming Encounters Date Type Department Care Team (Late st Contact Info) Description 11/21/2023 9:00 AM EDT Pharmacy Pharmacy Hematology Oncology [facility] [address] [place] [address] [facility], [facility] Hem/Onc [address] [place] [address] 12/21/2023 1:00 PM EDT Office Visit [facility] [address] [place] [address] Toshia Reynaga DO [address] [place] [address] 12/21/2023 2:00 PM EDT Office Visit Cardiology, [facility] [address] [place] [address] Huong Oseguera CRNP [address] [place] [address] 01/03/2024 11:15 AM EDT Office Visit Hematology/Oncology [facility] 200 [facility] [place] [phone] Zeeshan Choi MD 200 [facility] [place] [address] 01/24/2024 12:40 PM EDT Office Visit [facility] [address] [place] [address] Toshia Reynaga, [address] [place] [address] Health Maintenance Due Date Last Done Comments Pneumococcal Vaccine: 65+ Years (1 of 2 - PCV) 09/29/1941 Depression Screening 1947 DTaP,Tdap,and Td Vaccines (1 - Tdap) 09/29/1954 Zoster Vaccines (1 of 2) 09/29/1985 COVID-19 Vaccine (1 - 2022- season) 2023 CKD PHOS USE SMARTSET 26125 11/11/2023 11/10/2022 Influenza Vaccine (FLU shot) (Season Ended) 2024 Albumin/Creatinine Ratio 05/11/2024 05/11/2023, 07/24 O2 ASSESSMENT COMPLETED IN PAST YEAR FOR COPD 10/30/2024 10/31/2023 CKD HGB USE SMARTSET 25779 11/13/202411/13, 11/14/2023, 11/08/2023, Additional history exists DXA [...] filedocumented as of this encounter Care Teams Final Block Press Operator Relationship Specialty Start Date End Date Toshia Reynaga DO [address] [place] [address] PCP - General Family Medicine 12/07/22 documented as of this encounter
--- OUTSIDE RECORDS SUMMARY | 2023-12-06 23:30 | External Medical Summary | Summary of Care ---
Author Name Unknown Organization [facility] Address [address] [place] [address] Phone [phone] Care Team Providers Care Shear Grinder Operator Name Role Phone Toshia Reynaga DO Primary Care Provider [phone] Reason for Visit * Reason Onset Date Comments Advice 11/16/2023 Encounter Details Date Type Department Care Team (Late st Contact Info) Description 11/16/2023 Telephone Hematology/Oncology [facility] [place] 200 [facility] [place] [address] Zeeshan Choi MD 200 [facility] [place] [address] Advice Allergies Active Allergy Reactions Criticality Noted [...] - 11/16/2023 8:32 AM EDT Beba from [facility] is calling to speak with someone about the patient, she is currently admitted , needs to discuss anticoagulation Please call her back to discuss. documented in this encounter Plan of Treatment Upcoming Encounters Date Type Department Care Team (Late st Contact Info) Description 11/21/2023 9:00 AM EDT Pharmacy Pharmacy Hematology Oncology [place] [address] [place] [address] [facility], [facility] Hem/Onc [address] [place] [address] 12/21/2023 1:00 PM EDT Office [facility] [place] [address] Toshia Reynaga, [address] [place] [address] 12/21/2023 2:00 PM EDT Office Visit Cardiology, [facility] [address] [place] [address] Huong Oseguera CRNP [address] [place] [address] 01/03/2024 11:15 AM EDT Office Visit Hematology/Oncology [facility] 200 [facility] [place] [address] Zeeshan Choi MD 200 [place] [address] 01/24/2024 12:40 PM EDT Office Visit [facility] [address] [place] [address] Toshia Reynaga DO 132 [facility] [place] [address] Health Maintenance Due Date Last Done Comments Pneumococcal Vaccine: 65+ Years (1 of 2 - PCV) 09/29/1941 Depression Screening 1947 DTaP,Tdap,and Td Vaccines (1 - Tdap) 09/29/1954 Zoster Vaccines (1 of 2) 09/29/1985 COVID-19 Vaccine (1 - 2022-24 season) 2023 CKD PHOS USE SMARTSET 39864 11/11/2023 11/10/2022 Influenza Vaccine (FLU shot) (Season Ended) 2024 Albumin/Creatinine Ratio 05/11/2024 05/11/2023, 07/24 O2 ASSESSMENT COMPLETED IN PAST YEAR FOR COPD 10/30/2024 10/31/2023 CKD HGB USE SMARTSET 59627 11/13/202411/13, 11/14/2023, 11/08/2023, Additional history exists DXA [...] filedocumented as of this encounter Care Teams Shear Grinder Operator Relationship Specialty Start Date End Date Toshia Reynaga DO [address] [place] [address] PCP - General Family Medicine 12/07/22 documented as of this encounter
--- OUTSIDE RECORDS SUMMARY | 2023-12-06 23:30 | External Medical Summary | Summary of Care ---
Author Name Unknown Organization [facility] Address [address] [place] [address] Phone [phone] Care Team Providers Care Pharmacy Stock Clerk Name Role Phone Toshia Reynaga DO Primary Care Provider [phone] Encounter Details Date Type Department Care Team (Late st Contact Info) Description 11/15/2023 Orders Only Family Practice [facility] [address] [place] [address] Toshia Reynaga DO [address] [place] [address] Allergies Active Allergy Reactions Criticality Noted Date [...] Former Cigarettes 0.3 5 1 974 - 9137 Passive Smoke Exposure: Never Smokeless Tobacco: Never [...] 9:00 AM EDT Pharmacy Pharmacy Hematology Oncology [place] [address] [place] [address] Gm, [facility] Hem/Onc [address] [place] [address] 12/21/2023 1:00 PM EDT Office Visit Family Practice [facility] [address] [place] [address] Toshia Reynaga DO [address] [place] [address] 12/21/2023 2:00 PM EDT Office Visit Cardiology, [facility] [address] [place] [address] Huong Oseguera CRNP [address] [place] [address] 01/03/2024 11:15 AM EDT Office Visit Hematology/Oncology [facility] [place] [phone] Zeeshan Choi MD 200 [facility] [place] [address] 01/24/2024 12:40 PM EDT Office Visit Family Practice [facility] [address] [place] [address] Toshia Reynaga DO [address] [place] [address] Health Maintenance Due Date Last Done Comments Pneumococcal Vaccine: 65+ Years (1 of 2 - PCV) 09/29/1941 Depression Screening 1947 DTaP,Tdap,and Td Vaccines (1 - Tdap) 09/29/1954 Zoster Vaccines (1 of 2) 09/29/1985 COVID-19 Vaccine (1 - 2022- season) 2023 CKD PHOS USE SMARTSET 73322 11/11/2023 11/10/2022 Influenza Vaccine (FLU shot) (Season Ended) 2024 Albumin/Creatinine Ratio 05/11/2024 05/11/2023, 07/24 O2 ASSESSMENT COMPLETED IN PAST YEAR FOR COPD 10/30/2024 10/31/2023 CKD HGB USE SMARTSET 52539 11/13/202411/13, 11/14/2023, 11/08/2023, Additional history exists DXA [...] Priority Date/Time Associated Diagnosis Comments CHEMISTRY-OUTSIDE Routine 11/14/2023 documented in this encounter Results * (ABNORMAL) CHEMISTRY-OUTSIDE (11/14/2023) Not all results display below - see scan for full detail OUTSIDE LAB (SEE SCANNED REPORT) Comment:SCAN: CMP, MAG,CBCD, URNIALYSIS CREATININE-OUTSID E LAB 1.13(H) 0.55 - 1.02 MG/DL OUTSIDE LAB (SEE SCANNED REPORT) EGFR-OUTSIDE LAB 47(L) >60 ML/MIN/1.7 3M2 OUTSIDE LAB (SEE SCANNED REPORT) POTASSIUM-OUTSIDE LAB 4.1 3.5 - 5.1 MMOL/L OUTSIDE LAB (SEE SCANNED REPORT) GLUCOSE-OUTSIDE LAB 90 70 - 110 MG/DL OUTSIDE LAB (SEE [...] LAB OUTSIDE LAB (SEE SCANNED REPORT) HEMOGLOBIN, T1N-OTBLLVC LAB OUTSIDE LAB (SEE SCANNED REPORT) PHOSPHORUS-OUTSID E LAB OUTSIDE LAB (SEE SCANNED REPORT) PTH-OUTSIDE LAB OUTS [facility] LAB (SEE SCANNED REPORT) MICROALBUMIN RATIO-OUTSIDE LAB OUTSIDE LA B (SEE SCANNED REPORT) PROTEIN, UA-OUTSIDE LAB OUTSIDE LAB (SEE SCANNED REPORT) HGB 8.7(L) 12.0 - 16.0 GM/DL OUTSIDE LAB (SEE SCANNED REPORT) 11/14/2023 Toshia Reynaga DO LABORATORY OUTSIDE LAB (SEE SCANNED REPORT) documented in this encounter Care Teams Pharmacy Stock Clerk Relationship Specialty Start Date End Date Toshia Reynaga DO [address] [place] [address] PCP - General Family Medicine 12/07/22 documented as of this encounter
--- OUTSIDE RECORDS SUMMARY | 2023-12-06 23:30 | External Medical Summary | Summary of Care ---
Author Name Unknown Organization [facility] Address [address] [place] [address] Phone [phone] Care Team Providers Care Molecular Spectroscopist Name Role Phone Toshia Reynaga DO Primary Care Provider [phone] Reason for Visit * Reason Onset Date Comments Advice 11/17/2023 Choi Encounter Details Date Type Department Care Team (Late st Contact Info) Description 11/17/2023 Telephone Hematology/Oncology [facility] [place] [address] [place] [address] Services, Scheduling [address] [place] [address] Advice (Jimbo) Allergies Active Allergy Reactions Criticality Noted Date Comments Lisinopril Other (Please comment) 05/06/2022 Burning in throat documented as of this encounter (statuses as of 11/17/2023) Medications Medication Sig Dispensed Refills Start Date [...] as of this encounter (statuses as of 11/17/2023) Active Problems Problem Noted Date Diagnosed Date [...] as of this encounter (statuses as of 11/17/2023) Resolved Problems Problem Noted Date Diagnosed Date Resolved Date Chronic obstructive pulmonary disease 05/11/2023 06/08/2023 Overview: Per COPD GOLD Classification documented as of this encounter (statuses as of 11/17/2023) Immunizations No known immunizationsdocumented as of this [...] is 7.8. Please call Ibeth back from [facility] at [phone] Thank you! documented in this encounter Plan of Treatment Upcoming Encounters Date Type Department Care Team (Late st Contact Info) Description 11/21/2023 9:00 AM EDT Pharmacy Pharmacy Hematology Oncology [facility] [address] [place] [address] [facility], [facility] Hem/Onc [address] [place] [address] 12/21/2023 1:00 PM EDT Office Visit [facility] [address] [place] [address] Toshia Reynaga DO [address] [place] [address] 12/21/2023 2:00 PM EDT Office Visit Cardiology, [facility] [address] [place] [address] Huong Oseguera CRNP [address] [place] [address] 01/03/2024 11:15 AM EDT Office Visit Hematology/Oncology [facility] [place] 200 [facility] [place] [phone] Zeeshan Choi MD 200 [facility] [place] [address] 01/24/2024 12:40 PM EDT Office Visit [facility] [address] [place] [address] Toshia Reynaga, [address] [place] [address] Health Maintenance Due Date Last Done Comments Pneumococcal Vaccine: 65+ Years (1 of 2 - PCV) 09/29/1941 Depression Screening 1947 DTaP,Tdap,and Td Vaccines (1 - Tdap) 09/29/1954 Zoster Vaccines (1 of 2) 09/29/1985 COVID-19 Vaccine (1 - 2022- season) 2023 CKD PHOS USE SMARTSET 46178 11/11/2023 11/10/2022 Influenza Vaccine (FLU shot) (Season Ended) 2024 Albumin/Creatinine Ratio 05/11/2024 05/11/2023, 07/24 O2 ASSESSMENT COMPLETED IN PAST YEAR FOR COPD 10/30/2024 10/31/2023 CKD HGB USE SMARTSET 86297 11/13/202411/13, 11/14/2023, 11/08/2023, Additional history exists DXA [...] filedocumented as of this encounter Care Teams Molecular Spectroscopist Relationship Specialty Start Date End Date Toshia Reynaga DO [address] [place] [address] PCP - General Family Medicine 12/07/22 documented as of this encounter
--- OUTSIDE RECORDS SUMMARY | 2023-12-06 23:30 | External Medical Summary | Summary of Care ---
Author Name Unknown Organization [facility] Address [address] [place] [address] Phone [phone] Care Team Providers Care Help Desk Agent Name Role Phone Toshia Reynaga DO Primary Care Provider [phone] Reason for Visit * Reason Onset Date Comments Advice 11/17/2023 Choi Encounter Details Date Type Department Care Team (Late st Contact Info) Description 11/17/2023 Telephone Hematology/Oncology [facility] [place] [address] [place] [address] Services, Scheduling [address] [place] [address] Advice (Jimbo) Allergies Active Allergy Reactions Criticality [...] Choi to review. * Telephone Encounter - Ailvia Moore OSA - 11/17/2023 11:12 AM EDT Choi pt. Pt's Platelet count is 5.4. She is currently taking Doptelet 20mg daily. Ibeth wants to confirm if doctor wants pt to stay on this dose or not. Also, pt is suppossed to start Eloquist. Hemoglobin is 7.8. Please call Ibeth back from [facility] at [phone] Thank you! documented in this encounter Plan of Treatment Upcoming Encounters Date Type Department Care Team (Late st Contact Info) Description 11/21/2023 9:00 AM EDT Pharmacy Pharmacy Hematology Oncology [facility] [address] [place] [address] [facility], [facility] Hem/Onc [address] [place] [address] 12/21/2023 1:00 PM EDT Office Visit [facility] [address] [place] [address] Toshia Reynaga DO [address] [place] [address] 12/21/2023 2:00 PM EDT Office Visit Cardiology, [facility] [address] [place] [address] Huong Oseguera CRNP [address] [place] [address] 01/03/2024 11:15 AM EDT Office Visit Hematology/Oncology [facility] [place] [address] [place] [phone] Zeeshan Choi MD 200 [place] [address] 01/24/2024 12:40 PM EDT Office Visit Family Practice [facility] [address] [place] [address] Toshia Reynaga DO [address] [place] [address] Health Maintenance Due Date Last Done Comments Pneumococcal Vaccine: 65+ Years (1 of 2 - PCV) 09/29/1941 Depression Screening 1947 DTaP,Tdap,and Td Vaccines (1 - Tdap) 09/29/1954 Zoster Vaccines (1 of 2) 09/29/1985 COVID-19 Vaccine (1 - season) 2023 CKD PHOS USE SMARTSET 47924 11/11/2023 11/10/2022 Influenza Vaccine (FLU shot) (Season Ended) 2024 Albumin/Creatinine Ratio 05/11/2024 05/11/2023, 07/24 O2 ASSESSMENT COMPLETED IN PAST YEAR FOR COPD 10/30/2024 10/31/2023 CKD HGB USE SMARTSET 23022 11/13/202411/13, 11/14/2023, 11/08/2023, Additional history exists DXA [...] filedocumented as of this encounter Care Teams Help Desk Agent Relationship Specialty Start Date End Date Toshia Reynaga DO [address] [place] [address] PCP - General Family Medicine 12/07/22 documented as of this encounter
--- OUTSIDE RECORDS SUMMARY | 2023-12-06 23:30 | External Medical Summary | Summary of Care ---
Author Name Unknown Organization [facility] Address [address] [place] [address] Phone [phone] Care Team Providers Care Bulk Coolers Installer Name Role Phone Toshia Reynaga DO Primary Care Provider [phone] Reason for Visit * Reason Onset Date Comments Advice 11/16/2023 Encounter Details Date Type Department Care Team (Late st Contact Info) Description 11/16/2023 Telephone Hematology/Oncology [facility] [place] 200 [facility] [place] [address] Zeeshan Choi MD 200 [facility] [place] [address] Advice Allergies Active Allergy Reactions Criticality Noted [...] PM EDT Spoke to the hospitalist with [facility] - She presented with Afib, platelet counts have been stable, however, they are prescribing the patient Eliquis. Dr. Choi and concerns or questions regarding patient starting Eliquis please call the following #:[phone] * Telephone Encounter - Berhane Tucker RN - 11/16/2023 8:52 AM EDT Called the # back. Went straight to VM. Left VM with return #. * Telephone Encounter - Jackie Smith OSA - 11/16/2023 8:32 AM EDT Beba from [facility] is calling to speak with someone about the patient, she is currently admitted , needs to discuss anticoagulation Please call her back to discuss. documented in this encounter Plan of Treatment Upcoming Encounters Date Type Department Care Team (Late st Contact Info) Description 11/21/2023 9:00 AM EDT Pharmacy Pharmacy Hematology Oncology [facility] [address] [place] [address] Gm, [facility] Hem/Onc [address] [place] [address] 12/21/2023 1:00 PM EDT Office Visit [facility] [address] [place] [address] Toshia Reynaga DO [address] [place] [address] 12/21/2023 2:00 PM EDT Office Visit Cardiology, [facility] [address] [place] [address] Huong Oseguera CRNP [address] [place] [address] 01/03/2024 11:15 AM EDT Office Visit Hematology/Oncology [facility] [place] [address] [place] [phone] Zeeshan Choi MD 200 [address] [place] [address] 01/24/2024 12:40 PM EDT Office Visit [facility] [address] [place] [address] Toshia Reynaga DO [address] [place] [address] Health Maintenance Due Date Last Done Comments Pneumococcal Vaccine: 65+ Years (1 of 2 - PCV) 09/29/1941 Depression Screening 1947 DTaP,Tdap,and Td Vaccines (1 - Tdap) 09/29/1954 Zoster Vaccines (1 of 2) 09/29/1985 COVID-19 Vaccine (1 - season) 2023 CKD PHOS USE SMARTSET 26382 11/11/2023 11/10/2022 Influenza Vaccine (FLU shot) (Season Ended) 2024 Albumin/Creatinine Ratio 05/11/2024 05/11/2023, 07/24 O2 ASSESSMENT COMPLETED IN PAST YEAR FOR COPD 10/30/2024 10/31/2023 CKD HGB USE SMARTSET 21078 11/13/202411/13, 11/14/2023, 11/08/2023, Additional history exists DXA [...] filedocumented as of this encounter Care Teams Bulk Coolers Installer Relationship Specialty Start Date End Date Toshia Reynaga DO [address] [place] [address] PCP - General Family Medicine 12/07/22 documented as of this encounter
--- OUTSIDE RECORDS SUMMARY | 2023-12-06 23:31 | External Medical Summary ---
Author Name Unknown Address Unknown Organization K[facility] [place] [address] Laboratory Report Ordering Provider Test Date Status RAMU VASQUES 11/06/2023 09:38:07 Final Observation Date Value Abnormality Reference (Units ) Status SYNC LEUKOCYTES IN BLOOD BY AUTOMATED COUNT 11/06/2023 09:38:07 6.50 4.00-10.80 (K/uL) Final Segs 11/06/2023 09:38:07 65.4 40.0-75.0 (%) Final Lymphs % 11/06/2023 09:38:07 23.7 18.0-42.0 (%) Final Monos 11/06/2023 09:38:07 7.5 1.0-11.0 (%) Final Eosinophils 11/06/2023 09:38:07 2.5 0.0-6.0 (%) Final Basos 11/06/2023 09:38:07 0.9 0.0-2.0 (%) Final Absolute Segs 11/06/2023 09:38:07 4.25 1.80-7.70 (K/uL) Final Lymphs, absolute 11/06/2023 09:38:07 1.54 1.00-4.80 (K/ul) Final Monos, Abs 11/06/2023 09:38:07 0.49 0.00-1.10 (K/uL) Final Eos, Abs 11/06/2023 09:38:07 0.16 0.00-0.70 (K/uL) Final Basos, Abs 11/06/2023 09:38:07 0.06 0.00-0.20 (K/uL) Final Performing Location [facility] [address] [place] [address]
--- OUTSIDE RECORDS SUMMARY | 2023-12-06 23:31 | External Medical Summary | Summary of Care ---
Author Name Unknown Organization [facility] Address [address] [place] [address] Phone [phone] Care Team Providers Care Senior Private Client Advisor Name Role Phone Toshia Reynaga DO Primary Care Provider [phone] Reason for Visit * Reason Comments Medication Management Encounter Details Date Type Department Care Team (Late st Contact Info) Description 11/06/2023 9:00 AM EDT Pharmacy Pharmacy Hematology Oncology [facility] [address], [place] [id number] [facility] Hem/Onc [address], [place] [id number] Chronic ITP (idiopathic thrombocytopenia) ([facility])* Allergies Active Allergy Reactions Criticality Noted Date Comments Lisinopril Other (Please comment) 05/06/2022 Burning in throat documented as of this encounter (statuses as of 11/06/2023) Medications Medication Sig Dispensed Refills Start Date [...] as of this encounter (statuses as of 11/06/2023) Active Problems Problem Noted Date Diagnosed Date Moderate pulmonary hypertension 09/18/2023 COPD, group B, by GOLD 2017 classification 06/05 Overview: Per COPD GOLD Classification Hx of nonmelanoma skin cancer 12/01/2022 Overview: basal cell carcinoma (L superior parietal scalp 2018), R medial inferior forehead 5/23, L inferior forehead 12/13, R post auricular region 12/13) Stage 3a chronic kidney disease 11/07/2022 Protein-calorie malnutrition 06/27/2022 HTN, goal below 140/90 04/25/2022 Chronic ITP (idiopathic thrombocytopenia) 2021 Constipation 04/25/2022 documented as of this encounter (statuses as of 11/06/2023) Resolved Problems Problem Noted Date Diagnosed Date Resolved Date Chronic obstructive pulmonary disease 05/11/2023 06/08/2023 Overview: Per COPD GOLD Classification documented as of this encounter (statuses as of 11/06/2023) Immunizations No known immunizationsdocumented as of this [...] as of this encounter Progress Notes * Casiano Winterjose Teran, [facility] - 11/06/2023 10:51 AM EDT MEDICATION THERAPY MANAGEMENT AVATROMBOPAG TREATMENT PROGRESS NOTE Edilma Kennedy [phone] Patient Phone Numbers son Christian Son: Christian Communication: Spoke to: Patient and Son Treatment: Medication: Avatrombopag (Doptelet) Indication/Staging/Diagnosis Code: ITP/D69.3 Dose: 20mg daily ( 09/25/23) Administration: with food Start Date: November 2019 Primary Creative Specialist/Oncologist: Dr. Gabriel Choi Additional therapy: Rutiximab x 2 Dose adjustment / medication hold: 09/14/23-09/24/23: avatrombopag held due to thrombocytosis (PLT 919K) 09/25/23: resume avatrombopag at 20mg daily 10/25/23-11/06/23: avatrombopag held due to thrombocytosis (PLT 684K) Interval History: Pt admitted to [facility] 05/23/22 for bleeding and PLT < 10K and [place] [facility] [place] and discharged 06/18/22 Per OV 03/09/23, lab monitoring extended to monthly Admitted to [facility] 09/01/23-09/06/23 for CHF/COPD exacerbation - avatrombopag continued during admission despite PLT 718K 09/01/23 Admitted to [facility] 10/18/23-10/22/23 for COPD exacerbation Denies s/s of bleeding or bruising Changes to medication list since last visit? No Assessment and plan: PLT declining to below goal (50-200K) at 29K Hgb declining. Will monitor closely All other labs stable Per discussion with covering provider Gomez Rosales via TT, restart avatrombopag 20mg daily Repeat labs 11/09 (scheduled @1000) Assessment of compliance: yes Dose adjustment needed based on lab or adverse drug reaction? Yes, restart Follow up: 11/09 Winter Casiano, PharmD, BCOP Clinical Pharmacist, [facility] Oral Chemotherapy [facility] 11/06/2023, 12:18 PM Pertinent labs: Latest Reference Range & Units 10/25/23 14:50 10/30/23 11:07 11/06/23 09:38 WBC 4.00 - 10.80 K/uL 19.71 (H) 14.45 (H) 6.50 RBC 3.85 - 5.15 M/uL 4.03 3.56 3.46 HGB 12.0 - 15.3 g/dL 11.9 (L) 10.4 (L) 10.1 (L) HCT 36.0 - 45.2 % 38.4 34.2 (L) 31.9 (L) MCV 81.5 - 97.5 fL 95.3 96.1 92.2 MCH 27.0 - 34.0 pg 29.5 29.2 29.2 MCHC 32.0 - 36.0 g/dL 31.0 30.4 31.7 RDW 11.5 - 15.5 % 15.7 15.7 15.3 PLT 140 - 400 K/uL 816 (H) 619 (H) 29 (L) MPV 6.6 - 11.1 fL 10.7 10.1 SEE REPORT CBC WITH WBC DIFFERENTIAL Rpt ! Rpt ! Rpt ! Absolute Neutrophils 1.80 - 7.70 K/uL 18.07 (H) 11.44 (H) 4.25 Time Spent on Encounter: 6 - 10 minutes Encounter Group: Hematology Encounter Interventions Item Category: Oral Chemotherapy Other: Avatrombopag Problem/Rationale: Safety: Needs additional monitoring - Medication Requires monitoring Pharmacist Intervention(s): Care coordination, Clarification with Provider, Lab monitoring, Medication resumed, and Toxicity monitoring Magnitude of Intervention: Modification of medication for asymtomatic patients (Level 2) documented in this encounter Plan of Treatment Upcoming Encounters Date Type Department Care Team (Late st Contact Info) Description 11/10/2023 9:00 AM EDT Pharmacy Pharmacy Hematology Oncology [facility] [address] [place] [address] [facility] Hem/Onc [facility] [place] [address] 11/10/2023 10:00 AM EDT Laboratory Laboratory, [facility] [address] [place] [phone] [place] [address] [place] [address] 12/21/2023 1:00 PM EDT Office Visit Family Practice [facility] [address] [place] [address] Toshia Reynaga DO [address] [place] [address] 12/21/2023 2:00 PM EDT Office Visit Cardiology, [facility] [address] [place] [address] Huong Oseguera CRNP [address] [place] [address] 01/03/2024 11:15 AM EDT Office Visit Hematology/Oncology [facility] [place] [address] [place] [phone] Zeeshan Choi MD 200 [place] [address] 01/24/2024 12:40 PM EDT Office Visit [facility] [address] [place] [address] Toshia Reynaga DO [address] [place] [address] Health Maintenance Due Date Last Done Comments Pneumococcal Vaccine: 65+ Years (1 of 2 - PCV) 09/29/1941 Depression Screening 1947 DTaP,Tdap,and Td Vaccines (1 - Tdap) 09/29/1954 Zoster Vaccines (1 of 2) 09/29/1985 COVID-19 Vaccine (1 - season) 2023 CKD PHOS USE SMARTSET 63265 11/11/2023 11/10/2022 Influenza Vaccine (FLU shot) (Season Ended) 2024 Albumin/Creatinine Ratio 05/11/2024 05/11/2023, 07/24 O2 ASSESSMENT COMPLETED IN PAST YEAR FOR COPD 10/30/2024 10/31/2023 CKD HGB USE SMARTSET 64196 11/05/202411/05, 11/06/2023, 10/30/2023, Additional history exists DXA Scan 12/07/2032 12/07/2022 [...] purpura documented in this encounter Care Teams Senior Private Client Advisor Relationship Specialty Start Date End Date Toshia Reynaga DO [address] [place] [address] PCP - General Family Medicine 12/07/22 documented as of this encounter
--- OUTSIDE RECORDS SUMMARY | 2023-12-06 23:31 | External Medical Summary | Summary of Care ---
Author Name Unknown Organization [facility] Address [address] [place] [address] Phone [phone] Care Team Providers Care Loan Specialist Name Role Phone Toshia Reynaga DO Primary Care Provider [phone] Reason for Visit * Reason Onset Date Comments Advice 11/07/2023 Nose Bleeding Encounter Details Date Type Department Care Team (Late st Contact Info) Description 11/07/2023 Telephone Family Practice [facility] [address] [place] [address] Toshia Reynaga DO [address] [place] [address] Advice (Nose Bleeding ) Allergies Active Allergy Reactions Criticality Noted Date Comments Lisinopril Other (Please comment) 05/06/2022 Burning in throat documented as of this encounter (statuses as of 11/07/2023) Medications Medication Sig Dispensed Refills Start Date [...] as of this encounter (statuses as of 11/07/2023) Active Problems Problem Noted Date Diagnosed Date [...] as of this encounter (statuses as of 11/07/2023) Resolved Problems Problem Noted Date Diagnosed Date Resolved Date Chronic obstructive pulmonary disease 05/11/2023 06/08/2023 Overview: Per COPD GOLD Classification documented as of this encounter (statuses as of 11/07/2023) Immunizations No known immunizationsdocumented as of this [...] encounter Miscellaneous Notes * Telephone Encounter - Hung Calderon OSA - 11/07/2023 2:36 PM EDT What is the reason for call? Nose will not stop bleeding What Clinic is the patient trying to reach? [facility]: [facility] - Call Type: Hot Call- warm transfer call to the mat linker EMERGENT line- [phone] Call was warm transferred to [phone] documented in this encounter Plan of Treatment Upcoming Encounters Date Type Department Care Team (Late st Contact Info) Description 11/10/2023 9:00 AM EDT Pharmacy Pharmacy Hematology Oncology [facility] [address] [place] [address] [facility], [facility] Hem/Onc [address] [place] [address] 11/10/2023 10:00 AM EDT Laboratory Laboratory, [facility] [address] [place] [phone] [facility] [address] [place] [address] 12/21/2023 1:00 PM EDT Office Visit [facility] [address] [place] [address] Toshia Reynaga, [address] [place] [address] 12/21/2023 2:00 PM EDT Office Visit Cardiology, [facility] [address] [place] [address] Huong Oseguera CRNP [address] [place] [address] 01/03/2024 11:15 AM EDT Office Visit Hematology/Oncology [facility] [address] [facility], [place] [phone] Zeeshan Choi MD [address] [facility] [place] [address] 01/24/2024 12:40 PM EDT Office Visit [facility] [address] [place] [address] Toshia Reynaga, [address] [place] [address] Health Maintenance Due Date Last Done Comments Pneumococcal Vaccine: 65+ Years (1 of 2 - PCV) 09/29/1941 Depression Screening 1947 DTaP,Tdap,and Td Vaccines (1 - Tdap) 09/29/1954 Zoster Vaccines (1 of 2) 09/29/1985 COVID-19 Vaccine (1 - 2022-24 season) 2023 CKD PHOS USE SMARTSET 26082 11/11/2023 11/10/2022 Influenza Vaccine (FLU shot) (Season Ended) 2024 Albumin/Creatinine Ratio 05/11/2024 05/11/2023, 07/24 O2 ASSESSMENT COMPLETED IN PAST YEAR FOR COPD 10/30/2024 10/31/2023 CKD HGB USE SMARTSET 83030 11/05/202411/05, 11/06/2023, 10/30/2023, Additional history exists DXA [...] filedocumented as of this encounter Care Teams Loan Specialist Relationship Specialty Start Date End Date Toshia Reynaga DO [address] [place] [address] PCP - General Family Medicine 12/07/22 documented as of this encounter
--- OUTSIDE RECORDS SUMMARY | 2023-12-06 23:31 | External Medical Summary | Summary of Care ---
Author Name Unknown Organization [facility] Address [address] [place] [address] Phone [phone] Care Team Providers Care Care Aid Name Role Phone Toshia Reynaga DO Primary Care Provider [phone] Reason for Visit * Reason Comments Oxygen Assessment [address] Encounter Details Date Type Department Care Team (Latest Contact Info) Description 10/31/2023 11:30 AM EDT PulmDiagnostic Pulmonary Function Lab, [facility] [address] [place] [address] [place], [place] [address] [place] [address] COPD, severe (HCC)*; Chronic respiratory failure with hypoxia (HCC) Allergies Active Allergy Reactions Criticality Noted Date Comments Lisinopril Other (Please comment) 05/06/2022 Burning in throat documented as of this encounter (statuses as of 10/31/2023) Medications Medication Sig Dispensed Refills Start Date [...] as of this encounter (statuses as of 10/31/2023) Active Problems Problem Noted Date Diagnosed Date [...] as of this encounter (statuses as of 10/31/2023) Resolved Problems Problem Noted Date Diagnosed Date Resolved Date Chronic obstructive pulmonary disease 05/11/2023 06/08/2023 Overview: Per COPD GOLD Classification documented as of this encounter (statuses as of 10/31/2023) Immunizations No known immunizationsdocumented as of this encounter Social History Tobacco Use Types Packs/Day Years Used Date Smoking Tobacco: Former Cigarettes 0.3 5 1 4 - 1978 Passive Smoke Exposure: Never Smokeless [...] Sign Reading Time Taken Comments Blood Pressure 104/56 10/31/2023 11:34 AM EDT Pulse 79 10/31/2023 11:34 AM EDT Temperature - - Respiratory Rate 16 10/31/2023 11:34 AM EDT Oxygen Saturation 93% 10/31/2023 11:34 AM EDT Inhaled Oxygen Concentration - - Weight 45.2 kg (99 lb 10.4 oz) 10/31/2023 11:34 AM EDT Height 155 cm (5' 1.02") 10/31/2023 11:34 AM EDT Body Mass Index 18.81 10/31/2023 11:34 AM EDT documented in this encounter Nursing Notes * Saleem Dinh, PRANAV - 10/31/2023 11:38 AM EDT Edilma Kennedy was identified by name, Date of : (1935), and . Vitals were obtained for testing. Body mass index is 18.81 kg/m. Pt was 87% on 1 liter at rest. Pt used own tank. Exercise oximetry performed on 2 liters x 6 minutes. Pt ambulated 810 feet/ 247 meters. No rest periods were required. Lowest SPO2 on 2 liters was 89%. documented in this encounter Miscellaneous Notes * Addendum Note - Enrique Nam MD - 10/31/2023 4:29 PM EDTAddended by: ENRIQUE NAM on: 10/31/2023 04:29 PM Modules accepted: Orders documented in this encounter Plan of Treatment Upcoming Encounters Date Type Department Care Team (Late st Contact Info) Description 11/01/2023 2:30 PM EDT Cardiac Studies Cardiac Studies, [facility] [address] [place] [address] 11/06/2023 9:00 AM EDT Pharmacy Pharmacy Hematology Oncology [facility] [address] [place] [address] [facility] Hem/Onc [address] [place] [address] 11/06/2023 9:30 AM EDT Laboratory Laboratory, [facility] [address] [place] [phone] [place] [facility] [address] [place] [address] 12/21/2023 1:00 PM EDT Office Visit Family Practice [facility] [address] [place] [address] Toshia Reynaga DO [address] [place] [address] 12/21/2023 2:00 PM EDT Office Visit Cardiology, [facility] [address] [facility] [place] [address] Huong Oseguera CRNP [address] [place] [address] 01/03/2024 11:15 AM EDT Office Visit Hematology/Oncology [facility] [place] [phone] Zeeshan Choi MD [address] [facility] [place] [address] 01/24/2024 12:40 PM EDT Office Visit Family Practice [facility] [address] [place] [address] Toshia Reynaga DO 132 [facility] [place] [address] Health Maintenance Due Date Last Done Comments Pneumococcal Vaccine: 65+ Years (1 of 2 - PCV) 09/29/1941 Depression Screening 1947 DTaP,Tdap,and Td Vaccines (1 - Tdap) 09/29/1954 Zoster Vaccines (1 of 2) 09/29/1985 COVID-19 Vaccine (1 - season) 2023 CKD PHOS USE SMARTSET 68811 11/11/2023 11/10/2022 Influenza Vaccine (FLU shot) (Season Ended) 2024 Albumin/Creatinine Ratio 05/11/2024 05/11/2023, 07/24 CKD HGB USE SMARTSET 57671 10/29/202410/29, 10/30/2023, 10/25/2023, Additional history exists O2 ASSESSMENT COMPLETED IN PAST YEAR FOR COPD 10/30/2024 10/31/2023 DXA Scan 12/07/2032 12/07/2022 Alpha-1 Antitrypsin Completed [...] as of this encounter Visit Diagnoses Diagnosis COPD, severe (HCC)- Primary Chronic airway obstruction, not elsewhere classified Chronic respiratory failure with hypoxia (HCC) Chronic respiratory failure documented in this encounter Care Teams Care Aid Relationship Specialty Start Date End Date Toshia Reynaga DO [address] [place] [address] PCP - General Family Medicine 12/07/22 documented as of this encounter
--- OUTSIDE RECORDS SUMMARY | 2023-12-06 23:31 | External Medical Summary | Summary of Care ---
Author Name Unknown Organization [facility] Address [address] [place] [address] Phone [phone] Care Team Providers Care Sand Mill Operator Core Sand Name Role Phone Toshia Reynaga DO Primary Care Provider [phone] Encounter Details Date Type Department Care Team (Late st Contact Info) Description 11/09/2023 Orders Only Family Practice [facility] [address] [place] [address] Toshia Reynaga DO [address] [place] [address] Allergies Active Allergy Reactions Criticality Noted Date Comments Lisinopril Other (Please comment) 05/06/2022 Burning in throat documented as of this encounter (statuses as of 11/09/2023) Medications Medication Sig Dispensed Refills Start Date [...] as of this encounter (statuses as of 11/09/2023) Active Problems Problem Noted Date Diagnosed Date [...] as of this encounter (statuses as of 11/09/2023) Resolved Problems Problem Noted Date Diagnosed Date Resolved Date Chronic obstructive pulmonary disease 05/11/2023 06/08/2023 Overview: Per COPD GOLD Classification documented as of this encounter (statuses as of 11/09/2023) Immunizations No known immunizationsdocumented as of this encounter Social History Tobacco Use Types Packs/Day Years Used Date Smoking Tobacco: Former Cigarettes 0.3 5 1 974 - 6554 Passive Smoke Exposure: Never Smokeless Tobacco: Never [...] Team (Late st Contact Info) Description 11/10/2023 10:00 AM EDT Laboratory Laboratory, [facility] [address] [place] [phone] [place] [address] [place] [address] 11/15/2023 9:00 AM EDT Pharmacy Pharmacy Hematology Oncology [facility] [address] [place] [address] [facility] Hem/Onc [address] [place] [address] 12/21/2023 1:00 PM EDT Office Visit Family Practice [facility] [address] [place] [address] Toshia Reynaga DO [address] [place] [address] 12/21/2023 2:00 PM EDT Office Visit Cardiology, [facility] [address] [place] [address] Huong Oseguera CRNP [address] [place] [address] 01/03/2024 11:15 AM EDT Office Visit Hematology/Oncology [facility] [address] [facility] [place] [phone] Zeeshan Choi MD 200 [facility] [place] [address] 01/24/2024 12:40 PM EDT Office Visit Family Practice [facility] [address] [place] [address] Toshia Reynaga DO [address] [facility] [place] [address] Health Maintenance Due Date Last Done Comments Pneumococcal Vaccine: 65+ Years (1 of 2 - PCV) 09/29/1941 Depression Screening 1947 DTaP,Tdap,and Td Vaccines (1 - Tdap) 09/29/1954 Zoster Vaccines (1 of 2) 09/29/1985 COVID-19 Vaccine (1 - season) 2023 CKD PHOS USE SMARTSET 40453 11/11/2023 11/10/2022 Influenza Vaccine (FLU shot) (Season Ended) 2024 Albumin/Creatinine Ratio 05/11/2024 05/11/2023, 07/24 O2 ASSESSMENT COMPLETED IN PAST YEAR FOR COPD 10/30/2024 10/31/2023 CKD HGB USE SMARTSET 78675 11/07/202411/07, 11/08/2023, 11/06/2023, Additional history exists DXA Scan 12/07/2032 12/07/2022 [...] Priority Date/Time Associated Diagnosis Comments CHEMISTRY-OUTSIDE Routine 11/08/2023 documented in this encounter Results * (ABNORMAL) CHEMISTRY-OUTSIDE (11/08/2023) Not all results display below - see scan for full detail SEE SCAN: CBCD OUTSIDE LAB (SEE SCANNED REPORT) CREATININE-OUTSID E LAB OUTSIDE LAB (SEE SCANNED REPORT) EGFR-OUTSIDE LAB OUT SIDE LAB (SEE SCANNED REPORT) POTASSIUM-OUTSIDE LAB OUTSIDE LAB (SEE SCANNED REPORT) GLUCOSE-OUTSIDE LAB OUTSIDE LAB (SEE SCANNED REPORT) HOURS FASTING [...] LAB OUTSIDE LAB (SEE SCANNED REPORT) HEMOGLOBIN, V0O-SZDPMXR LAB OUTSIDE LAB (SEE SCANNED REPORT) PHOSPHORUS-OUTSID E LAB OUTSIDE LAB (SEE SCANNED REPORT) PTH-OUTSIDE LAB OUTS [facility] LAB (SEE SCANNED REPORT) MICROALBUMIN RATIO-OUTSIDE LAB OUTSIDE LA B (SEE SCANNED REPORT) PROTEIN, UA-OUTSIDE LAB OUTSIDE LAB (SEE SCANNED REPORT) HGB 9.7(L) 12.0 - 16.0 GM/DL OUTSIDE LAB (SEE SCANNED REPORT) 11/08/2023 Tiki Aviles MD LABORATORY OUTSIDE LAB (SEE SCANNED REPORT) documented in this encounter Care Teams Sand Mill Operator Core Sand Relationship Specialty Start Date End Date Toshia Reynaga DO [address] [place] [address] PCP - General Family Medicine 12/07/22 documented as of this encounter
--- OUTSIDE RECORDS SUMMARY | 2023-12-06 23:31 | External Medical Summary | Summary of Care ---
Author Name Unknown Organization [facility] Address [address] [place] [address] Phone [phone] Care Team Providers Care Upper Doubler Name Role Phone Toshia Garza DO Primary Care Provider [phone] Reason for Visit * Reason Onset Date Comments Test Results 10/31/2023 Encounter Details Date Type Department Care Team (Late st Contact Info) Description 10/31/2023 Telephone Family Practice [facility] [address] [place] [address] Toshia Garza DO [address] [facility] [place] [address] Test Results Allergies Active Allergy Reactions Criticality Noted Date Comments Lisinopril Other (Please comment) 05/06/2022 Burning in throat documented as of this encounter (statuses as of 11/01/2023) Medications Medication Sig Dispensed Refills Start Date [...] as of this encounter (statuses as of 11/01/2023) Active Problems Problem Noted Date Diagnosed Date [...] as of this encounter (statuses as of 11/01/2023) Resolved Problems Problem Noted Date Diagnosed Date Resolved Date Chronic obstructive pulmonary disease 05/11/2023 06/08/2023 Overview: Per COPD GOLD Classification documented as of this encounter (statuses as of 11/01/2023) Immunizations No known immunizationsdocumented as of this [...] Miscellaneous Notes * Telephone Encounter - Toshia Garza DO - 10/31/2023 5:32 PM EDT Assessment and plan: PLT from 10/30/23 above goal (50-200K) at 619K Hgb 10.4, declining will monitor closely All other labs stable Per discussion with covering provider Gomez Rosales NP, HOLD avatrombopag due to thrombocytosis Advised patient and son to continue to hold avatrombopag Pt and son verbalized understanding Repeat labs scheduled 11/05 @ 930am Labs were assessed by hematology today 10/30 as noted above Thank you * Telephone Encounter - Zohra Fernandez LPN - 10/31/2023 2:23 PM EDT Called pt as her computer is not working currently. Gave message as below and she was eating a lot of bananas in the past week and I told her to stop for now or only have 1 or 2 a week as her potassium level was too high. She will comply with limiting or not eating any bananas for now. Does not take any supplements and aware we will be in touch once you hear back from hematology regarding the CBC. She only takes Tylenol. * Telephone Encounter - Zohra Fernandez LPN - 10/31/2023 12:38 PM EDT Sent My G message as below to pt in the protal. * Telephone Encounter - Toshia Garza DO - 10/31/2023 12:34 PM EDT Ms. Kennedy I sent your CBC to hematology to review Your other labs showing mild elevation in potassium. Do you take a potassium supplement? Creatinine up a bit but stable Please avoid all nsaids (aleve, motrin, ibuprofen) Thank you Toshia Garza DO documented in this encounter Plan of Treatment Upcoming Encounters Date Type Department Care Team (Late st Contact Info) Description 11/01/2023 2:30 PM EDT Cardiac Studies Cardiac Studies, [facility] 132 [facility] [place] [address] 11/06/2023 9:00 AM EDT Pharmacy Pharmacy Hematology Oncology [facility] [address] [place] [address] [facility] Hem/Onc [address] [place] [address] 11/06/2023 9:30 AM EDT Laboratory Laboratory, [facility] [address] [phone] [place] 132 [facility] [place] [address] 12/21/2023 1:00 PM EDT Office Visit Family Practice [facility] [address] [place] [address] Toshia Garza, [address] [place] [address] 12/21/2023 2:00 PM EDT Office Visit Cardiology, [facility] [address] [place] [address] Huong Oseguera CRNP [address] [place] [address] 01/03/2024 11:15 AM EDT Office Visit Hematology/Oncology [facility] [place] [phone] Zeeshan Choi MD [address] [facility] [place] [address] 01/24/2024 12:40 PM EDT Office Visit Family [facility] [address] [place] [address] Toshia Garza, [address] [place] [address] Health Maintenance Due Date Last Done Comments Pneumococcal Vaccine: 65+ Years (1 of 2 - PCV) 09/29/1941 Depression Screening 1947 DTaP,Tdap,and Td Vaccines (1 - Tdap) 09/29/1954 Zoster Vaccines (1 of 2) 09/29/1985 COVID-19 Vaccine (1 - 2022- season) 2023 CKD PHOS USE SMARTSET 24127 11/11/2023 11/10/2022 Influenza Vaccine (FLU shot) (Season Ended) 2024 Albumin/Creatinine Ratio 05/11/2024 05/11/2023, 07/24 CKD HGB USE SMARTSET 53073 10/29/202410/29, 10/30/2023, 10/25/2023, Additional history exists O2 [...] filedocumented as of this encounter Care Teams Upper Doubler Relationship Specialty Start Date End Date Toshia Garza DO [address] [place] [address] PCP - General Family Medicine 12/07/22 documented as of this encounter
--- OUTSIDE RECORDS SUMMARY | 2023-12-06 23:31 | External Medical Summary | Summary of Care ---
Author Name Unknown Organization [facility] Address [address] [place] [address] Phone [phone] Care Team Providers Care Manufacturing Production Technician Name Role Phone Toshia Reynaga DO Primary Care Provider [phone] Reason for Visit * Reason Onset Date Comments Advice 11/08/2023 Encounter Details Date Type Department Care Team (Late st Contact Info) Description 11/08/[address] [facility] [address] [facility] [address] Toshia Reynaga DO [address] [place] [address] Advice Allergies Active Allergy Reactions Criticality Noted Date Comments Lisinopril Other (Please comment) 05/06/2022 Burning in throat documented as of this encounter (statuses as of 11/08/2023) Medications Medication Sig Dispensed Refills Start Date [...] as of this encounter (statuses as of 11/08/2023) Active Problems Problem Noted Date Diagnosed Date [...] as of this encounter (statuses as of 11/08/2023) Resolved Problems Problem Noted Date Diagnosed Date Resolved Date Chronic obstructive pulmonary disease 05/11/2023 06/08/2023 Overview: Per COPD GOLD Classification documented as of this encounter (statuses as of 11/08/2023) Immunizations No known immunizationsdocumented as of this [...] Telephone Encounter - Toshia Reynaga DO - 11/08/2023 12:46 PM EDT noted * Telephone Encounter - Jazmyn Tucker LPN - 11/08/2023 10:50 AM EDT HH Concerns Angelica, PT, Calling from: [facility] Report/Concerns of: SOB intermittently. Today with exertion. Yesterday and this morning felt like she had a hard time getting her breath. Symptoms: sob- intermittent and cough- productive and color was mercedes per patient. Vitals: T 97.4 P 82 RR 20-24 BP 132/52 SP O2 95 down to 84 with Lung sounds clear, diminished Weight 96,4 Blood sugar n/a Narrative: Angelica calling from [facility] PT. Patient is complaining of sob. When Angelica got there she was 88 on 2 lpm at rest. Normally she is on one liter. Increased to 3 lpm within 2 minutes back in the 90's told to watch her pulse ox. Since she had such a a change. Started yesterday with intermittent SOB. It happened any time, not just with exertion. Exercised with Angelica. O2 sat 95 @ 3 lpm then dropped to 84. They stopped. No further exercises done. Normally she is on 1 lpm and she is 99. Today she is on 3 lpm and running 94% She had a black diarrhea tarry stool this morning. No visible blood. Has had a bloody nose yesterday. Told to ask for humidification for the oxygen. Her skin turgor is poor. Patient only drinks about 20 ounces a day. Yesterday weight 99. Today 96.4lbs. Called patient. Spoke to son, Christian. They went to [facility] ER yesterday on 11/07/23. They couldn't get the nose bleed to stop. Used cold compresses and pressure. ER got it stopped. No packing needed. Sent home. Called the patient. Called the office spoke to Maryuri. Recommendation from Dr. Reynaga is that patient needs to go back to the ER. Patient informed and will comply. Call back Angelica with any advice or orders at [phone] Please fax new orders to [phone] * Telephone Encounter - Aline Lauren OSA - 11/08/2023 10:48 AM EDT Reason for patient's call: asking to speak to nurse Caller was transferred to Jazmyn at the nurse line. documented in this encounter Plan of Treatment Upcoming Encounters Date Type Department Care Team (Late st Contact Info) Description 11/10/2023 9:00 AM EDT Pharmacy Pharmacy Hematology Oncology [facility] [address] [place] [address] [facility] Hem/Onc [address] [place] [address] 11/10/2023 10:00 AM EDT Laboratory Laboratory, [facility] [place] [phone] [facility] [address] [place] [address] 12/21/2023 1:00 PM EDT Office Visit [facility] [address] [facility] [place] [address] Toshia Reynaga, [address] [place] [address] 12/21/2023 2:00 PM EDT Office Visit Cardiology, [facility] [place] [address] Huong Oseguera CRNP [address] [place] [address] 01/03/2024 11:15 AM EDT Office Visit Hematology/Oncology [facility] 200 [facility] [place] [phone] Zeesahn Choi MD [address] [facility] [address] 01/24/2024 12:40 PM EDT Office Visit [facility] [place] [address] Toshia Reynaga DO [address] [place] [address] Health Maintenance Due Date Last Done Comments Pneumococcal Vaccine: 65+ Years (1 of 2 - PCV) 09/29/1941 Depression Screening 1947 DTaP,Tdap,and Td Vaccines (1 - Tdap) 09/29/1954 Zoster Vaccines (1 of 2) 09/29/1985 COVID-19 Vaccine (1 - season) 2023 CKD PHOS USE SMARTSET 70156 11/11/2023 11/10/2022 Influenza Vaccine (FLU shot) (Season Ended) 2024 Albumin/Creatinine Ratio 05/11/2024 05/11/2023, 07/24 O2 ASSESSMENT COMPLETED IN PAST YEAR FOR COPD 10/30/2024 10/31/2023 CKD HGB USE SMARTSET 35950 11/05/202411/05, 11/06/2023, 10/30/2023, Additional history exists DXA [...] filedocumented as of this encounter Care Teams Manufacturing Production Technician Relationship Specialty Start Date End Date Toshia Reynaga DO [address] [address] PCP - General Family Medicine 12/07/22 documented as of this encounter
--- OUTSIDE RECORDS SUMMARY | 2023-12-06 23:31 | External Medical Summary | Summary of Care ---
Author Name Unknown Organization [facility] Address [address] [place] [address] Phone [phone] Care Team Providers Care Medical Care Administrator Name Role Phone Toshia Reynaga DO Primary Care Provider [phone] Encounter Details Date Type Department Care Team (Late st Contact Info) Description 11/15/2023 Orders Only Family Practice [facility] [address] [place] [address] Toshia Reynaga DO [address] [place] [address] Allergies Active Allergy Reactions Criticality Noted Date [...] Former Cigarettes 0.3 5 1 974 - 0400 Passive Smoke Exposure: Never Smokeless Tobacco: Never [...] Team (Late st Contact Info) Description 11/15/2023 9:00 AM EDT Pharmacy Pharmacy Hematology Oncology [place] [address] [place] [address] Gm, [facility] Hem/Onc [address] [place] [address] 12/21/2023 1:00 PM EDT Office Visit Family Practice [facility] [address] [place] [address] Toshia Reynaga DO [address] [address] 12/21/2023 2:00 PM EDT Office Visit Cardiology, [facility] [address] [address] Huong Oseguera CRNP [address] [place] [address] 01/03/2024 11:15 AM EDT Office Visit Hematology/Oncology [facility] 200 [facility] [place] [phone] Zeeshan Choi MD 200 [facility] [place] [address] 01/24/2024 12:40 PM EDT Office Visit Family Practice [facility] [address] [place] [address] Toshia Reynaga DO [address] [place] [address] Health Maintenance Due Date Last Done Comments Pneumococcal Vaccine: 65+ Years (1 of 2 - PCV) 09/29/1941 Depression Screening 1947 DTaP,Tdap,and Td Vaccines (1 - Tdap) 09/29/1954 Zoster Vaccines (1 of 2) 09/29/1985 COVID-19 Vaccine (1 - 2022- season) 2023 CKD PHOS USE SMARTSET 71580 11/11/2023 11/10/2022 Influenza Vaccine (FLU shot) (Season Ended) 2024 Albumin/Creatinine Ratio 05/11/2024 05/11/2023, 07/24 O2 ASSESSMENT COMPLETED IN PAST YEAR FOR COPD 10/30/2024 10/31/2023 CKD HGB USE SMARTSET 97547 11/13/202411/13, 11/08/2023, 11/08/2023, Additional history exists DXA [...] Procedure Name Priority Date/Time Associated Diagnosis Comments XR CHEST 1 VIEW Routine 11/14/2023 documented in this encounter Results * XR CHEST 1 VIEW (11/14/2023) Anatomical Region Laterality Modality Chest Other 11/14/2023 Toshia Reynaga DO RADIOLOGY (RAD GENE RAL) documented in this encounter Care Teams Medical Care Administrator Relationship Specialty Start Date End Date Toshia Reynaga DO [address] [place] [address] PCP - General Family Medicine 12/07/22 documented as of this encounter
--- OUTSIDE RECORDS SUMMARY | 2023-12-06 23:31 | External Medical Summary ---
Author Name Unknown Address Unknown Organization K[facility] [address] [place] [address] Laboratory Report Ordering Provider Test Date Status RAMU VASQUES 11/06/2023 09:38:07 Final Observation Date Value Abnormality Reference (Units ) Status WBC, Total 11/06/2023 09:38:07 6.50 4.00-10.8 0 (K/uL) Final RBC 11/06/2023 09:38:07 3.46 3.85-5.15 (M/uL) Final Hemoglobin 11/06/2023 09:38:07 10.1 Below low normal 12 .0-15.3 (g/dL) Final HCT 11/06/2023 09:38:07 31.9 Below low normal 36. 0-45.2 (%) Final MCV 11/06/2023 09:38:07 92.2 81.5-97.5 (fL) Final MCH 11/06/2023 09:38:07 29.2 27.0-34.0 (pg) Final MCHC 11/06/2023 09:38:07 31.7 32.0-36.0 (g/dL) Final RDW 11/06/2023 09:38:07 15.3 11.5-15.5 (%) Final Platelets 11/06/2023 09:38:07 29 Below low normal 140 -400 (K/uL) Final Results rechecked.
null MPV 11/06/2023 09:38:07 Final No result - abnormal platele t distribution. Performing Location [facility] [address] [place] [address]
--- OUTSIDE RECORDS SUMMARY | 2023-12-06 23:31 | External Medical Summary | Summary of Care ---
Author Name Unknown Organization [facility] Address [address] [place] [address] Phone [phone] Care Team Providers Care Market Research Specialist Name Role Phone Toshia Reynaga DO Primary Care Provider [phone] Reason for Visit * Reason Onset Date Comments Advice 11/09/2023 Jimbo Encounter Details Date Type Department Care Team (Late st Contact Info) Description 11/09/2023 Telephone Hematology/Oncology [facility] [place] [address] [facility] [place] [address] Zeeshan Choi MD [address] [facility] [place] [address] Advice (Jimbo) Allergies Active Allergy Reactions Criticality [...] Former Cigarettes 0.3 5 1 974 - 3159 Passive Smoke Exposure: Never Smokeless Tobacco: Never [...] Encounter - Berhane Tucker RN - 11/09/2023 3:16 PM EDT Spoke with Dr. Garrido, asking for advice from Dr. Choi on what we would like to do in regards to patients platelets. Her cell # is [phone] Choi- advise restarting Doptelet and give steroids and trend her platelets for the next few days. She was taken off Doptelet and believes this is what caused her decline in platelets.Advised to get steroids during this time as well. Dr. Garrido aware, appreciative of the advice. * Telephone Encounter - Betsy Baird OSA - 11/09/2023 3:[address] Garrido from [facility] is calling asking to discuss the patients care with the office. Sent to Berhane to assist. documented in this encounter Plan of Treatment Upcoming Encounters Date Type Department Care Team (Late st Contact Info) Description 11/15/2023 9:00 AM EDT Pharmacy Pharmacy Hematology Oncology [facility] [address] [place] [address] Gm, [facility] Hem/Onc [address] [place] [address] 12/21/2023 1:00 PM EDT Office Visit [facility] [address] [place] [address] Toshia Reynaga DO [address] [place] [address] 12/21/2023 2:00 PM EDT Office Visit Cardiology, [facility] [address] [place] [address] Huong Oseguera CRNP [address] [place] [address] 01/03/2024 11:15 AM EDT Office Visit Hematology/Oncology [facility] [address] [facility] [place] [phone] Zeeshan Choi MD 200 [place] [address] 01/24/2024 12:40 PM EDT Office Visit [facility] [address] [place] [address] Toshia Reynaga DO [address] [place] [address] Health Maintenance Due Date Last Done Comments Pneumococcal Vaccine: 65+ Years (1 of 2 - PCV) 09/29/1941 Depression Screening 1947 DTaP,Tdap,and Td Vaccines (1 - Tdap) 09/29/1954 Zoster Vaccines (1 of 2) 09/29/1985 COVID-19 Vaccine (1 - 2022- season) 2023 CKD PHOS USE SMARTSET 67555 11/11/2023 11/10/2022 Influenza Vaccine (FLU shot) (Season Ended) 2024 Albumin/Creatinine Ratio 05/11/2024 05/11/2023, 07/24 O2 ASSESSMENT COMPLETED IN PAST YEAR FOR COPD 10/30/2024 10/31/2023 CKD HGB USE SMARTSET 64551 11/07/202411/07, 11/08/2023, 11/06/2023, Additional history exists DXA [...] filedocumented as of this encounter Care Teams Market Research Specialist Relationship Specialty Start Date End Date Toshia Reynaga DO [address] [place] [address] PCP - General Family Medicine 12/07/22 documented as of this encounter
--- OUTSIDE RECORDS SUMMARY | 2023-12-06 23:31 | External Medical Summary | Summary of Care ---
Author Name Unknown Organization [facility] Address [address] [place] [address] Phone [phone] Care Team Providers Care Propagator Laborer Name Role Phone Toshia Reynaga DO Primary Care Provider [phone] Encounter Details Date Type Department Care Team (Late st Contact Info) Description 11/14/2023 Orders Only Family Practice [facility] [address] [place] [address] Toshia Reynaga DO [address] [place] [address] Allergies Active Allergy Reactions Criticality Noted Date Comments Lisinopril Other (Please comment) 05/06/2022 Burning in throat documented as of this encounter (statuses as of 11/14/2023) Medications Medication Sig Dispensed Refills Start Date [...] as of this encounter (statuses as of 11/14/2023) Active Problems Problem Noted Date Diagnosed Date [...] as of this encounter (statuses as of 11/14/2023) Resolved Problems Problem Noted Date Diagnosed Date Resolved Date Chronic obstructive pulmonary disease 05/11/2023 06/08/2023 Overview: Per COPD GOLD Classification documented as of this encounter (statuses as of 11/14/2023) Immunizations No known immunizationsdocumented as of this encounter Social History Tobacco Use Types Packs/Day Years Used Date Smoking Tobacco: Former Cigarettes 0.3 5 1 974 - 8047 Passive Smoke Exposure: Never Smokeless Tobacco: Never [...] 9:00 AM EDT Pharmacy Pharmacy Hematology Oncology [place] [address] [place] [address] Gm, [facility] Hem/Onc [address] [place] [address] 12/21/2023 1:00 PM EDT Office Visit Family Practice [facility] [address] [place] [address] Toshia Reynaga DO [address] [place] [address] 12/21/2023 2:00 PM EDT Office Visit Cardiology, [facility] [address] [place] [address] Huong Oseguera CRNP [address] [place] [address] 01/03/2024 11:15 AM EDT Office Visit Hematology/Oncology [facility] [place] [phone] Zeeshan Choi MD [address] [facility] [place] [address] 01/24/2024 12:40 PM EDT Office Visit Family Practice [facility] [address] [place] [address] Toshia Reynaga DO [address] [place] [address] Health Maintenance Due Date Last Done Comments Pneumococcal Vaccine: 65+ Years (1 of 2 - PCV) 09/29/1941 Depression Screening 1947 DTaP,Tdap,and Td Vaccines (1 - Tdap) 09/29/1954 Zoster Vaccines (1 of 2) 09/29/1985 COVID-19 Vaccine (1 - 2022- season) 2023 CKD PHOS USE SMARTSET 20089 11/11/2023 11/10/2022 Influenza Vaccine (FLU shot) (Season Ended) 2024 Albumin/Creatinine Ratio 05/11/2024 05/11/2023, 07/24 O2 ASSESSMENT COMPLETED IN PAST YEAR FOR COPD 10/30/2024 10/31/2023 CKD HGB USE SMARTSET 54655 11/07/202411/13, 11/08/2023, 11/08/2023, Additional history exists DXA Scan [...] scan for full detail SEE SCAN: CBCD, LACTIC ACID LVL, TROPONIN HS, PT/INR, PTT, CMP, LIPASE LVL OUTSIDE LAB (SEE SCANNED REPORT) CREATININE-OUTSI DE LAB 1.51(H) 0.55 - 1.02 MG/DL OUTSIDE LAB (SEE SCANNED REPORT) EGFR-OUTSIDE LAB 33(L) >=60 ML/MIN/1. 73M2 OUTSIDE LAB (SEE SCANNED REPORT) POTASSIUM-OUTSID E LAB 4.6 3.5 - 5.1 MMOL/L OUTSIDE LAB (SEE SCANNED REPORT) GLUCOSE-OUTSIDE LAB 99 70 - 110 MG/DL OUTSIDE LAB (SEE SCANNED REPORT) HOURS FASTING OUTSID E LAB (SEE SCANNED REPORT) TRIGLYCERIDES-OU TSIDE LAB OUTSIDE LAB (SEE SCANNED REPORT) CHOLESTEROL-OUTS [facility] OUTSIDE LAB (SEE SCANNED REPORT) HDL-OUTSIDE LAB OUTS [facility] (SEE SCANNED REPORT) CHOL/HDL RATIO-OUTSIDE LAB OUTSIDE LAB (SEE SCANNED REPORT) LDL (CALCULATED)-OUT SIDE LAB OUTSIDE LAB (SEE SCANNED REPORT) LDL (DIRECT MEASURE)-OUTSIDE LAB OUTSIDE LAB (SEE SCANNED REPORT) HEMOGLOBIN, H5L-LGVYEOF LAB OUTSIDE LAB (SEE SCANNED REPORT) PHOSPHORUS-OUTSI DE LAB OUTSIDE LAB (SEE SCANNED REPORT) PTH-OUTSIDE LAB OUTS [facility] (SEE SCANNED REPORT) MICROALBUMIN RATIO-OUTSIDE LAB OUTSIDE LAB (SEE SCANNED REPORT) PROTEIN, UA-OUTSIDE LAB OUTSIDE LAB (SEE SCANNED REPORT) HGB 9.9(L) 12.0 - 16.0 GM/DL OUTSIDE LAB (SEE SCANNED REPORT) 11/14/2023 Stanley Vasquez MD LABORATORY OUTSIDE LAB (SEE SCANNED REPORT) documented in this encounter Care Teams Propagator Laborer Relationship Specialty Start Date End Date Toshia Reynaga DO [address] [place] [address] PCP - General Family Medicine 12/07/22 documented as of this encounter
--- OUTSIDE RECORDS SUMMARY | 2023-12-06 23:31 | External Medical Summary | Summary of Care ---
Author Name Unknown Organization [facility] Address [address] [place] [address] Phone [phone] Care Team Providers Care Call Specialist Name Role Phone Toshia Reynaga DO Primary Care Provider [phone] Reason for Visit * Reason Comments Outpatient Testing Encounter Details Date Type Department Care Team (Late st Contact Info) Description 11/06/2023 9:30 AM EDT Laboratory Laboratory, [facility] [address] [place] [address] [facility] [address] [place] [address] Chronic ITP (idiopathic thrombocytopenia) ([facility]) Allergies Active Allergy Reactions Criticality Noted Date [...] Former Cigarettes 0.3 5 1 974 - 3802 Passive Smoke Exposure: Never Smokeless Tobacco: Never [...] Care Team (Late st Contact Info) Description 12/21/2023 1:00 PM EDT Office Visit Family Practice [facility] [address] [place] [address] Toshia Reynaga DO [address] [place] [address] 12/21/2023 2:00 PM EDT Office Visit Cardiology, [facility] [address] [place] [address] Huong Oseguera CRNP [address] [place] [address] 01/03/2024 11:15 AM EDT Office Visit Hematology/On[facility] [place] [address] [place] [phone] Zeeshan Choi MD [address] [place] [address] 01/24/2024 12:40 PM EDT Office Visit Family [facility] [address] [place] [address] Toshia Reynaga DO [address] [place] [address] Pending Results Name Type Priority Associated Diagnoses Date /Time CBC WITH WBC DIFFERENTIAL Lab STAT Chronic ITP (idiopathic thrombocytopenia) ([facility]) 11/06/2023 9:38 AM EDT CBC Lab STAT Chronic ITP (idiopathic thrombocytopenia) ([facility]) 11/06/2023 9:38 AM EDT DIFFERENTIAL, AUTOMATED Lab STAT Chronic ITP (idiopathic thrombocytopenia) ([facility]) 11/06/2023 9:38 AM EDT Health Maintenance Due Date Last Done Comments Pneumococcal Vaccine: 65+ Years (1 of 2 - PCV) 09/29/1941 Depression Screening 1947 DTaP,Tdap,and Td Vaccines (1 - Tdap) 09/29/1954 Zoster Vaccines (1 of 2) 09/29/1985 COVID-19 Vaccine (1 - 2022- season) 2023 CKD PHOS USE SMARTSET 68643 11/11/2023 11/10/2022 Influenza Vaccine (FLU shot) (Season Ended) 2024 Albumin/Creatinine Ratio 05/11/2024 05/11/2023, 07/24 CKD HGB USE SMARTSET 90989 10/29/202410/29, 10/30/2023, 10/25/2023, Additional history exists O2 [...] purpura documented in this encounter Care Teams Call Specialist Relationship Specialty Start Date End Date Toshia Reynaga DO [address] [place] [address] PCP - General Family Medicine 12/07/22 documented as of this encounter
--- OUTSIDE RECORDS SUMMARY | 2023-12-06 23:31 | External Medical Summary | Summary of Care ---
Author Name Unknown Organization [facility] Address [address] [place] [address] Phone [phone] Care Team Providers Care Medical Transcription Editor Name Role Phone Toshia Reynaga DO Primary Care Provider [phone] Encounter Details Date Type Department Care Team (Late st Contact Info) Description 11/02/2023 Telephone Pulmonary Medicine Nehemiah Clemens [address] [place] [phone] Enrique Fernandez MD [address] [place] [address] [address] Allergies Active Allergy Reactions Criticality Noted Date Comments Lisinopril Other (Please comment) 05/06/2022 Burning in throat documented as of this encounter (statuses as of 11/02/2023) Medications Medication Sig Dispensed Refills Start Date [...] as of this encounter (statuses as of 11/02/2023) Active Problems Problem Noted Date Diagnosed Date Moderate pulmonary hypertension 09/18/2023 COPD, group B, by GOLD 2017 classification 06/05 Overview: Per COPD GOLD Classification Hx of nonmelanoma skin cancer 12/01/2022 Overview: basal cell carcinoma (L superior parietal scalp 2018), R medial inferior forehead 12/13, L inferior forehead 12/13, R post auricular region 5/23) Stage 3a chronic kidney disease 11/07/2022 Protein-calorie malnutrition 06/27/2022 HTN, goal below 140/90 04/25/2022 Chronic ITP (idiopathic thrombocytopenia) 2021 Constipation 04/25/2022 documented as of this encounter (statuses as of 11/02/2023) Resolved Problems Problem Noted Date Diagnosed Date Resolved Date Chronic obstructive pulmonary disease 05/11/2023 06/08/2023 Overview: Per COPD GOLD Classification documented as of this encounter (statuses as of 11/02/2023) Immunizations No known immunizationsdocumented as of this [...] encounter Miscellaneous Notes * Telephone Encounter - Jackie Kohler OSA - 11/02/2023 12:09 PM EDT New Oxygen order entered into . documented in this encounter Plan of Treatment Upcoming Encounters Date Type Department Care Team (Late st Contact Info) Description 11/06/2023 9:00 AM EDT Pharmacy Pharmacy Hematology Oncology [facility] [address] [place] [address] [facility] Hem/Onc [address] [place] [address] 11/06/2023 9:30 AM EDT Laboratory [facility], [facility] 132 [facility] [place] [phone] [place] 132 [facility] [place] [address] 12/21/2023 1:00 PM EDT Office Visit Family Practice [facility] [address] [place] [address] Toshia Reynaga, [address] [place] [address] 12/21/2023 2:00 PM EDT Office Visit Cardiology, [facility] [address] [place] [address] Huong Oseguera CRNP [address] [place] [address] 01/03/2024 11:15 AM EDT Office Visit Hematology/Oncology [facility] 200 [facility] [place] [phone] Zeeshan Choi MD 200 [facility] [place] [address] 01/24/2024 12:40 PM EDT Office Visit Family Practice [facility] [address] [place] [address] Toshia Reynaga, [address] [place] [address] Health Maintenance Due Date Last Done Comments Pneumococcal Vaccine: 65+ Years (1 of 2 - PCV) 09/29/1941 Depression Screening 1947 DTaP,Tdap,and Td Vaccines (1 - Tdap) 09/29/1954 Zoster Vaccines (1 of 2) 09/29/1985 COVID-19 Vaccine (1 - 2022- season) 2023 CKD PHOS USE SMARTSET 45338 11/11/2023 11/10/2022 Influenza Vaccine (FLU shot) (Season Ended) 2024 Albumin/Creatinine Ratio 05/11/2024 05/11/2023, 07/24 CKD HGB USE SMARTSET 96330 10/29/202410/29, 10/30/2023, 10/25/2023, Additional history exists O2 [...] filedocumented as of this encounter Care Teams Medical Transcription Editor Relationship Specialty Start Date End Date Toshia Reynaga DO [address] [place] [address] PCP - General Family Medicine 12/07/22 documented as of this encounter
--- OUTSIDE RECORDS SUMMARY | 2023-12-06 23:31 | External Medical Summary | Summary of Care ---
Author Name Unknown Organization [facility] Address [address] [place] [address] Phone [phone] Care Team Providers Care Drier Transfer Car Operator Name Role Phone Toshia Reynaga DO Primary Care Provider [phone] Reason for Visit * Reason Onset Date Comments Medication Question 11/13/2023 Encounter Details Date Type Department Care Team (Late st Contact Info) Description 11/13/2023 Telephone Hematology/Oncology [place] 200 [facility] [place] [address] Zeeshan Choi MD 200 [facility] [place] [address] Medication Question Allergies Active Allergy Reactions Criticality Noted Date Comments Lisinopril Other (Please comment) 05/06/2022 Burning in throat documented as of this encounter (statuses as of 11/13/2023) Medications Medication Sig Dispensed Refills Start Date [...] Avatrombopag Maleate 20 MG Oral Tablet Take 20 mg by mouth in the morning. 30 Tablet 5 11/13/2023 Active Hospital, Clinic, or Other Facility Administered Medication Ordered Dose Route Frequency Start Date End Date Status Albuterol Sulfate (Proventil) (2.5 MG/3ML) 0.083% inhalation solution 2.5 mgIndications:COPD, severity to be determined (HCC) 2.5 mg NEBULIZER ONCE PRN 02/17/2023 02/17/2024 Active documented as of this encounter (statuses as of 11/13/2023) Active Problems Problem Noted Date Diagnosed Date [...] as of this encounter (statuses as of 11/13/2023) Resolved Problems Problem Noted Date Diagnosed Date Resolved Date Chronic obstructive pulmonary disease 05/11/2023 06/08/2023 Overview: Per COPD GOLD Classification documented as of this encounter (statuses as of 11/13/2023) Immunizations No known immunizationsdocumented as of this [...] Telephone Encounter - Winter Casiano RPh - 11/13/2023 1:21 PM EDT Per 11/06/23 MTM encounter and 11/09/23 TE, pt to resume avatrombopag 20mg daily. Updated RX sent to [facility] Time Spent on Encounter: 6 - 10 minutes Encounter Group: Hematology Encounter Interventions Item Category: Oral Chemotherapy Other: Avatrombopag Problem/Rationale: Adherence - Medication product not available Pharmacist Intervention(s): Medication prescribed Magnitude of Intervention: Modification of medication for asymtomatic patients (Level 2) * Telephone Encounter - My Hernandez CPhT - 11/13/2023 11:12 AM EDT Pt ec requesting refills for Doptelet 20 MG Oral Tablet (Avatrombopag Maleate) . Upon chart review,medication is listed as discontinued, with discontinuation reason as "patient preference/discontinuation". Please advise if you wish to continue this therapy for the patient. Pt ec requesting high priority. Thank you, My Hernandez CPhT Lunchroom Supervisor II [facility] (formerly Telepharmacy) 11/13/2023, 11:12 AM documented in this encounter Plan of Treatment Upcoming Encounters Date Type Department Care Team (Late st Contact Info) Description 11/15/2023 9:00 AM EDT Pharmacy Pharmacy Hematology Oncology [facility] [address] [place] [address] [facility] Hem/Onc [address] [place] [address] 12/21/2023 1:00 PM EDT Office Visit [facility] [address] Toshia Reynaga DO 132 [place] [address] 12/21/2023 2:00 PM EDT Office Visit Cardiology, [facility] [place] [address] Huong Oseguera CRNP [address] [place] [address] 01/03/2024 11:15 AM EDT Office Visit Hematology/Oncology [place] [address] [place] [phone] Zeeshan Choi MD [address] [place] [address] 01/24/2024 12:40 PM EDT Office Visit Family Practice [facility] [address] [place] [address] Toshia Reynaga DO [address] [place] [address] Health Maintenance Due Date Last Done Comments Pneumococcal Vaccine: 65+ Years (1 of 2 - PCV) 09/29/1941 Depression Screening 1947 DTaP,Tdap,and Td Vaccines (1 - Tdap) 09/29/1954 Zoster Vaccines (1 of 2) 09/29/1985 COVID-19 Vaccine (1 - 2022- season) 2023 CKD PHOS USE SMARTSET 71360 11/11/2023 11/10/2022 Influenza Vaccine (FLU shot) (Season Ended) 2024 Albumin/Creatinine Ratio 05/11/2024 05/11/2023, 07/24 O2 ASSESSMENT COMPLETED IN PAST YEAR FOR COPD 10/30/2024 10/31/2023 CKD HGB USE SMARTSET 91095 11/07/202411/07, 11/08/2023, 11/06/2023, Additional history exists DXA [...] filedocumented as of this encounter Care Teams Drier Transfer Car Operator Relationship Specialty Start Date End Date Toshia Reynaga DO [address] [place] [address] [address] PCP - General Family Medicine 12/07/22 documented as of this encounter
--- OUTSIDE RECORDS SUMMARY | 2023-12-06 23:31 | External Medical Summary | Summary of Care ---
Author Name Unknown Organization [facility] Address [address] [place] [address] Phone [phone] Care Team Providers Care Internet Sales Associate Name Role Phone Toshia Reynaga DO Primary Care Provider [phone] Reason for Visit * Reason Onset Date Comments Emergency Department 11/09/2023 [facility] Encounter Details Date Type Department Care Team (Late st Contact Info) Description 11/09/2023 Telephone Hematology/Oncology [facility] [place] 200 [facility] [place] [phone] Zeeshan Choi MD [address] [place] [address] Emergency Department ([facility]) Allergies Active Allergy Reactions Criticality Noted Date [...] Grajeda LPN - 11/09/2023 8:41 AM EDT SHANE Choi: Son Christian would like you to be made aware: Patient's son, Christian called to make Dr. Choi aware patient was admitted to the [facility] ED yesterday, 11/08/2023 due to the following patient complaints; per patient request for c/o "black stool" and "bloody nose". He reports her Platelet count is 5,000. Patient is to be transferred this morning to [facility] for further treatment. Son reports, "no beds at [facility], [facility], or [facility]". Son is requesting a sooner appointment than December to follow up with Dr. Choi to discuss "getting the" Doptelet "back on tract". He states the patient was instructed to hold the medication for the "past two weeks". [facility] Lab/ CXR results and ED notes scanned in. Hgb: 10.2, Hct 32.6 PLT: 5 documented in this encounter Plan of Treatment Upcoming Encounters Date Type Department Care Team (Late st Contact Info) Description 11/10/2023 10:00 AM EDT Laboratory Laboratory, [facility] [address] [place] [phone] [place] 132 [facility] [place] [address] 11/15/2023 9:00 AM EDT Pharmacy Pharmacy Hematology Oncology [address] [address] [facility] Hem/Onc [facility] [place] [address] 12/21/2023 1:00 PM EDT Office Visit Family Practice [facility] [address] [place] [address] Toshia Reynaga DO [address] [place] [address] 12/21/2023 2:00 PM EDT Office Visit Cardiology, [facility] [address] [place] [address] Huong Oseguera CRNP [address] [place] [address] 01/03/2024 11:15 AM EDT Office Visit Hematology/Oncology [facility] 200 [facility] [place] [phone] Zeeshan Choi MD 200 [facility] [place] [address] 01/24/2024 12:40 PM EDT Office Visit Family Practice [facility] [address] [place] [address] Toshia Reynaga DO [address] [place] [address] Health Maintenance Due Date Last Done Comments Pneumococcal Vaccine: 65+ Years (1 of 2 - PCV) 09/29/1941 Depression Screening 1947 DTaP,Tdap,and Td Vaccines (1 - Tdap) 09/29/1954 Zoster Vaccines (1 of 2) 09/29/1985 COVID-19 Vaccine (1 - season) 2023 CKD PHOS USE SMARTSET 54244 11/11/2023 11/10/2022 Influenza Vaccine (FLU shot) (Season Ended) 2024 Albumin/Creatinine Ratio 05/11/2024 05/11/2023, 07/24 O2 ASSESSMENT COMPLETED IN PAST YEAR FOR COPD 10/30/2024 10/31/2023 CKD HGB USE SMARTSET 10725 11/07/202411/07, 11/08/2023, 11/06/2023, Additional history exists DXA [...] filedocumented as of this encounter Care Teams Internet Sales Associate Relationship Specialty Start Date End Date Toshia Reynaga DO [address] [place] [address] PCP - General Family Medicine 12/07/22 documented as of this encounter
--- OUTSIDE RECORDS SUMMARY | 2023-12-06 23:31 | External Medical Summary | Summary of Care ---
Author Name Unknown Organization [facility] Address [address] [place] [address] Phone [phone] Care Team Providers Care Equipment Engineering Technician Name Role Phone Toshia Reynaga DO Primary Care Provider [phone] Encounter Details Date Type Department Care Team (Late st Contact Info) Description 11/08/2023 Result Scan Unspecified Department <No scans attached> Allergies Active Allergy Reactions Criticality Noted Date [...] Oncology [facility] [address] [place] [address] [facility] Hem[facility]Onc [address] [place] [address] 11/10/2023 10:00 AM EDT Laboratory Laboratory, [facility] [address] [place] [phone] [place] [facility] [address] [place] [address] 12/21/2023 1:00 PM EDT Office Visit Family Practice [facility] [address] [place] [address] Toshia Reynaga DO [address] [place] [address] 12/21/2023 2:00 PM EDT Office Visit Cardiology, [facility] [address] [place] [address] Huong Oseguera CRNP [address] [place] [address] 01/03/2024 11:15 AM EDT Office Visit Hematology/Oncology [facility] 200 [facility] [place] [phone] Zeeshan Choi MD 200 [facility] [place] [address] 01/24/2024 12:40 PM EDT Office Visit Family Practice [facility] [address] [place] [address] Toshia Reynaga DO [address] [place] [address] Health Maintenance Due Date Last Done Comments Pneumococcal Vaccine: 65+ Years (1 of 2 - PCV) 09/29/1941 Depression Screening 1947 DTaP,Tdap,and Td Vaccines (1 - Tdap) 09/29/1954 Zoster Vaccines (1 of 2) 09/29/1985 COVID-19 Vaccine (1 - season) 2023 CKD PHOS USE SMARTSET 78684 11/11/2023 11/10/2022 Influenza Vaccine (FLU shot) (Season Ended) 2024 Albumin/Creatinine Ratio 05/11/2024 05/11/2023, 07/24 O2 ASSESSMENT COMPLETED IN PAST YEAR FOR COPD 10/30/2024 10/31/2023 CKD HGB USE SMARTSET 72194 11/07/202411/07, 11/06/2023, 11/06/2023, Additional history exists DXA Scan 12/07/2032 [...] Procedure Name Priority Date/Time Associated Diagnosis Comments RADIOLOGY SCANNED RESULT 11/08/2023 documented in this encounter Results * RADIOLOGY SCANNED RESULT (11/08/2023) 11/08/2023 No Physician Data Unknown DIAGNOSTIC RAD IOLOGY SERVICES documented in this encounter Care Teams Equipment Engineering Technician Relationship Specialty Start Date End Date Toshia Reynaga DO [address] [place] [address] PCP - General Family Medicine 12/07/22 documented as of this encounter
--- OUTSIDE RECORDS SUMMARY | 2023-12-06 23:31 | External Medical Summary ---
Author Name Unknown Address Unknown Organization K0G:LABORATORY [facility] [address] - [address] [place] [address] Laboratory Report Ordering Provider Test Date Status RAMU VASQUES 11/06/2023 09:38:07 Final Observation Date Value Abnormality Reference (Units ) Status Nucleated erythrocytes/100 leukocytes [Ratio] in Blood by Automated count 11/06/2023 09:38:07 Final Performing Location LABORATORY [facility] 57[address] 0 - [address] [place] [address]
--- OUTSIDE RECORDS SUMMARY | 2023-12-06 23:31 | External Medical Summary | Summary of Care ---
Author Name Unknown Organization [facility] Address [address] [place] [address] Phone [phone] Care Team Providers Care Head Animal Keeper Name Role Phone Toshia Reynaga DO Primary Care Provider [phone] Reason for Visit * Reason Onset Date Comments Emergency Department 11/09/2023 [facility] Encounter Details Date Type Department Care Team (Late st Contact Info) Description 11/09/2023 Telephone Hematology/Oncology [facility] [place] 200 [facility] [place] [phone] Zeeshan Choi MD [address] [place] [address] Emergency Department ([facility]) Allergies Active Allergy Reactions Criticality Noted [...] Choi aware patient was admitted to the [facility] ED yesterday, 11/08/2023 due to the following patient complaints; per patient request for c/o "black stool" and "bloody nose". He reports her Platelet count is 5,000. Patient is to be transferred this morning to [facility] for further treatment. Son reports, "no beds at [facility], [facility], or [facility]". Son is requesting a sooner appointment than December to follow up with Dr. Choi to discuss "getting the" Doptelet "back on tract". He states the patient was instructed to hold the medication for the "past two weeks". [facility] Lab/ CXR results and ED notes scanned in. Hgb: 10.2, Hct 32.6 PLT: 5 documented in this encounter Plan of Treatment Upcoming Encounters Date Type Department Care Team (Late st Contact Info) Description 11/10/2023 10:00 AM EDT Laboratory Laboratory, [facility] [address] [place] [phone] [place] 132 [facility] [place] [address] 11/15/2023 9:00 AM EDT Pharmacy Pharmacy Hematology Oncology [address] [address] [facility] Hem/Onc [facility] [place] [address] 12/21/2023 1:00 PM EDT Office Visit Family Practice [facility] [address] [place] [address] Toshia Reynaga DO [address] [place] [address] 12/21/2023 2:00 PM EDT Office Visit Cardiology, [facility] [address] [place] [address] Huong Oseguera CRNP [address] [place] [address] 01/03/2024 11:15 AM EDT Office Visit Hematology/Oncology [facility] 200 [facility] [place] [phone] Zeeshan Choi MD 200 [facility] [place] [address] 01/24/2024 12:40 PM EDT Office Visit Family Practice [facility] [address] [place] [address] Toshia Reynaga DO [address] [place] [address] Health Maintenance Due Date Last Done Comments Pneumococcal Vaccine: 65+ Years (1 of 2 - PCV) 09/29/1941 Depression Screening 1947 DTaP,Tdap,and Td Vaccines (1 - Tdap) 09/29/1954 Zoster Vaccines (1 of 2) 09/29/1985 COVID-19 Vaccine (1 - season) 2023 CKD PHOS USE SMARTSET 44177 11/11/2023 11/10/2022 Influenza Vaccine (FLU shot) (Season Ended) 2024 Albumin/Creatinine Ratio 05/11/2024 05/11/2023, 07/24 O2 ASSESSMENT COMPLETED IN PAST YEAR FOR COPD 10/30/2024 10/31/2023 CKD HGB USE SMARTSET 22479 11/07/202411/07, 11/08/2023, 11/06/2023, Additional history exists DXA [...] filedocumented as of this encounter Care Teams Head Animal Keeper Relationship Specialty Start Date End Date Toshia Reynaga DO [address] [place] [address] PCP - General Family Medicine 12/07/22 documented as of this encounter
--- OUTSIDE RECORDS SUMMARY | 2023-12-06 23:31 | External Medical Summary | Summary of Care ---
Author Name Unknown Organization [facility] Address [address] [place] [address] Phone [phone] Care Team Providers Care Net Web Developer Name Role Phone Toshia Reynaga DO Primary Care Provider [phone] Encounter Details Date Type Department Care Team (Late st Contact Info) Description 11/09/2023 Orders Only Family Practice [facility] [address] [place] [address] Toshia Reynaga DO [address] [place] [phone] Allergies Active Allergy Reactions Criticality Noted Date [...] Former Cigarettes 0.3 5 1 974 - 5870 Passive Smoke Exposure: Never Smokeless Tobacco: Never [...] EDT Pharmacy Pharmacy Hematology Oncology [facility] [address] [place] [address] [facility] Hem/Onc [address] [place] [address] 11/10/2023 10:00 AM EDT Laboratory Laboratory, [facility] [address] [address] [place] [address] [place] [address] 12/21/2023 1:00 PM EDT Office Visit Family Practice [facility] [address] [place] [address] [address] Toshia Reynaga DO [address] [place] [address] 12/21/2023 2:00 PM EDT Office Visit Cardiology, [facility] [address] [place] [address] Huong Oseguera CRNP [address] [place] [address] 01/03/2024 11:15 AM EDT Office Visit Hematology/Oncology [facility] 200 [facility] [place] [phone] Zeeshan Choi MD 200 [facility] [place] [address] 01/24/2024 12:40 PM EDT Office Visit Family Practice [facility] [address] [place] [address] Toshia Reynaga DO 132 [facility] [place] [address] Health Maintenance Due Date Last Done Comments Pneumococcal Vaccine: 65+ Years (1 of 2 - PCV) 09/29/1941 Depression Screening 1947 DTaP,Tdap,and Td Vaccines (1 - Tdap) 09/29/1954 Zoster Vaccines (1 of 2) 09/29/1985 COVID-19 Vaccine (1 - season) 2023 CKD PHOS USE SMARTSET 25189 11/11/2023 11/10/2022 Influenza Vaccine (FLU shot) (Season Ended) 2024 Albumin/Creatinine Ratio 05/11/2024 05/11/2023, 07/24 O2 ASSESSMENT COMPLETED IN PAST YEAR FOR COPD 10/30/2024 10/31/2023 CKD HGB USE SMARTSET 29636 11/05/202411/07, 11/06/2023, 11/06/2023, Additional history exists DXA Scan [...] Procedure Name Priority Date/Time Associated Diagnosis Comments SARS COV-2, ANTIGEN - OUTSIDE LAB Routine 11/08/2023 CHEMISTRY-OUTSIDE Routine 11/08/2023 documented in this encounter Results * (ABNORMAL) CHEMISTRY-OUTSIDE (11/08/2023) Not all results display below - see scan for full detail OUTSIDE LAB (SEE SCANNED REPORT) Comment:SEE SCAN, BMP, CBCD, PTINR CREATININE-OUTSID E LAB 1.42(H) 0.55 - 1.02 MG/DL OUTSIDE LAB (SEE SCANNED REPORT) EGFR-OUTSIDE LAB 36 >=60 ML/MIN/1.7 3M2 OUTSIDE LAB (SEE SCANNED REPORT) POTASSIUM-OUTSIDE LAB 3.7 3.5 - 5.1 MMOL/L OUTSIDE LAB (SEE SCANNED REPORT) GLUCOSE-OUTSIDE LAB 109 70 - 110 MG/DL OUTSIDE LAB (SEE [...] LAB OUTSIDE LAB (SEE SCANNED REPORT) HEMOGLOBIN, T6C-ABDEEGO LAB OUTSIDE LAB (SEE SCANNED REPORT) PHOSPHORUS-OUTSID E LAB OUTSIDE LAB (SEE SCANNED REPORT) PTH-OUTSIDE LAB OUTS [facility]WSON LAB (SEE SCANNED REPORT) MICROALBUMIN RATIO-OUTSIDE LAB OUTSIDE LA B (SEE SCANNED REPORT) PROTEIN, UA-OUTSIDE LAB OUTSIDE LAB (SEE SCANNED REPORT) HGB 102(L) 12.0 - 16.0 G/DL OUTSIDE LAB (SEE SCANNED REPORT) 11/08/2023 History Per Patient LABORATORY OUTSIDE LAB (SEE SCANNED REPORT) * SARS COV-2, ANTIGEN - OUTSIDE LAB (11/08/2023) SARS CoV-2, Antigen - Outside Lab OUTSIDE LAB (SEE SCANNED REPORT) 11/08/2023 History Per Patient LABORATORY Performing Organization Address City/State/[facility] Co de Phone Number OUTSIDE LAB (SEE SCANNED REPORT) documented in this encounter Care Teams Net Web Developer Relationship Specialty Start Date End Date Toshia Reynaga DO [address] [place] [address] [address] PCP - General Family Medicine 12/07/22 documented as of this encounter
--- OUTSIDE RECORDS SUMMARY | 2023-12-06 23:31 | External Medical Summary | Summary of Care ---
Author Name Unknown Organization [facility] Address [address] [place] [address] Phone [phone] Care Team Providers Care Registrar Assistant Name Role Phone Toshia Reynaga DO Primary Care Provider [phone] Reason for Visit * Reason Comments Outpatient Testing Encounter Details Date Type Department Care Team (Late st Contact Info) Description 11/06/2023 9:30 AM EDT Laboratory Laboratory, [facility] [address] [place] [address] [facility] [address] [place] [address] Chronic ITP (idiopathic thrombocytopenia) ([facility]) Allergies Active Allergy Reactions Criticality Noted Date [...] Former Cigarettes 0.3 5 1 974 - 9340 Passive Smoke Exposure: Never Smokeless Tobacco: Never [...] 1:00 PM EDT Office Visit Family Practice [facility] [address] [place] [address] Toshia Reynaga DO 132 [place] [address] 12/21/2023 2:00 PM EDT Office Visit Cardiology, [facility] [address] [place] [address] Huong Oseguera CRNP [address] [place] [address] 01/03/2024 11:15 AM EDT Office Visit Hematology/Oncology [facility] [place] [address] [place] [phone] Zeeshan Choi MD [address] [place] [address] 01/24/2024 12:40 PM EDT Office Visit Family [facility] [address] [place] [address] Toshia Reynaga DO [address] [place] [address] Pending Results Name Type Priority Associated Diagnoses Date /Time CBC WITH WBC DIFFERENTIAL Lab STAT Chronic ITP (idiopathic thrombocytopenia) ([facility]) 11/06/2023 9:38 AM EDT CBC Lab STAT Chronic ITP (idiopathic thrombocytopenia) ([facility]) 11/06/2023 9:38 AM EDT DIFFERENTIAL, AUTOMATED Lab STAT Chronic ITP (idiopathic thrombocytopenia) ([facility]) 11/06/2023 9:38 AM EDT Health Maintenance Due Date Last Done Comments Pneumococcal Vaccine: 65+ Years (1 of 2 - PCV) 09/29/1941 Depression Screening 1947 DTaP,Tdap,and Td Vaccines (1 - Tdap) 09/29/1954 Zoster Vaccines (1 of 2) 09/29/1985 COVID-19 Vaccine (1 - 2022- season) 2023 CKD PHOS USE SMARTSET 73462 11/11/2023 11/10/2022 Influenza Vaccine (FLU shot) (Season Ended) 2024 Albumin/Creatinine Ratio 05/11/2024 05/11/2023, 07/24 CKD HGB USE SMARTSET 16226 10/29/202410/29, 10/30/2023, 10/25/2023, Additional history exists O2 [...] purpura documented in this encounter Care Teams Registrar Assistant Relationship Specialty Start Date End Date Toshia Reynaga DO [address] [place] [address] [address] PCP - General Family Medicine 12/07/22 documented as of this encounter
--- OUTSIDE RECORDS SUMMARY | 2023-12-06 23:32 | External Medical Summary ---
Author Name Unknown Address Unknown Organization K01:LABORATORY [facility] [place] - [address] [place] [address] Laboratory Report Ordering Provider Test Date Status JAMSHID LUEVANO 10/30/2023 11:07:28 Final Observation Date Value Abnormality Reference (Units ) Status BUN 10/30/2023 11:07:28 29 Above high normal 6-20 (mg/dL) Final Creatinine 10/30/2023 11:07:28 1.3 Above high normal 0.5-1.0 (mg/dL) Final Glomerular filtration rate/1.73 sq M.predicted [Volume Rate/Area] in Serum, Plasma or Blood by Creatinine-based formula (CKD-EPI) 10/30/2023 11:07:28 40 Below low normal >=60 (mL/min) Final eGFR is calculated based on the CKD-EPI 2020 equation Sodium 10/30/2023 11:07:28 144 135-146 (m mol/L) Final Potassium 10/30/2023 11:07:28 4.5 3.5-5.1 (m mol/L) Final Cl 10/30/2023 11:07:28 99 98-107 (mm ol/L) Final CO2 10/30/2023 11:07:28 34 Above high normal 22 -32 (mmol/L) Final Anion gap 10/30/2023 11:07:28 11 7-15 (mmol /L) Final Glucose 10/30/2023 11:07:28 75 70-120 (mg /dL) Final Calcium 10/30/2023 11:07:28 8.9 8.4-10.2 ( mg/dL) Final Performing Location LABORATORY [facility] - [address] [place] [address]
--- OUTSIDE RECORDS SUMMARY | 2023-12-06 23:32 | External Medical Summary | Summary of Care ---
Author Name Unknown Organization [facility] Address [address] [place] [address] Phone [phone] Care Team Providers Care Tunnel Kiln Operator Name Role Phone Toshia Reynaga DO Primary Care Provider [phone] Reason for Visit * Reason Comments Oxygen Assessment [address] Encounter Details Date Type Department Care Team (Latest Contact Info) Description 10/31/2023 11:30 AM EDT PulmDiagnostic Pulmonary Function Lab, [facility] 132 [place] [address] West, Pft 132 [place] [address] COPD, severe (HCC)*; Chronic respiratory failure with [...] 2:30 PM EDT Cardiac Studies Cardiac Studies, [facility] [address] [place] [address] 11/06/2023 9:00 AM EDT Pharmacy Pharmacy Hematology [facility] [address] [place] [address] [facility] Hem/Onc [address] [place] [address] 11/06/2023 9:30 AM EDT Laboratory Laboratory, [facility] [address] [place] [address] [place] [facility] [address] [place] [address] 12/21/2023 1:00 PM EDT Office Visit Family Practice [facility] [address] [place] [address] Toshia Reynaga DO [address] [place] [address] 12/21/2023 2:00 PM EDT Office Visit Cardiology, [facility] [address] [facility] [place] [address] Huong Oseguera CRNP [address] [place] [address] 01/03/2024 11:15 AM EDT Office Visit Hematology/Oncology [facility] [address] [facility] [place] [phone] Zeeshan Choi MD 200 [facility] [place] [address] 01/24/2024 12:40 PM EDT Office Visit Family Practice [facility] [address] [place] [address] Toshia Reynaga DO 132 [facility] [place] [address] Health Maintenance Due Date Last Done Comments Pneumococcal Vaccine: 65+ Years (1 of 2 - PCV) 09/29/1941 Depression Screening 1947 DTaP,Tdap,and Td Vaccines (1 - Tdap) 09/29/1954 Zoster Vaccines (1 of 2) 09/29/1985 COVID-19 Vaccine (1 - season) 2023 CKD PHOS USE SMARTSET 31183 11/11/2023 11/10/2022 Influenza Vaccine (FLU shot) (Season Ended) 2024 Albumin/Creatinine Ratio 05/11/2024 05/11/2023, 07/24 CKD HGB USE SMARTSET 93475 10/29/202410/29, 10/30/2023, 10/25/2023, Additional history exists O2 [...] failure documented in this encounter Care Teams Tunnel Kiln Operator Relationship Specialty Start Date End Date Toshia Reynaga DO [address] [place] [address] PCP - General Family Medicine 12/07/22 documented as of this encounter
--- OUTSIDE RECORDS SUMMARY | 2023-12-06 23:32 | External Medical Summary ---
Author Name Unknown Address Unknown Organization K0G:LABORATORY [facility] [place] [facility] - [address] [place] [address] Laboratory Report Ordering Provider Test Date Status RAMU VASQUES 10/30/2023 11:07:28 Final Observation Date Value Abnormality Reference (Units ) Status WBC, Total 10/30/2023 11:07:28 14.45 Above high normal 4 .00-10.80 (K/uL) Final RBC 10/30/2023 11:07:28 3.56 3.85-5.15 (M/uL) Final Hemoglobin 10/30/2023 11:07:28 10.4 Below low normal 12 .0-15.3 (g/dL) Final HCT 10/30/2023 11:07:28 34.2 Below low normal 36. 0-45.2 (%) Final MCV 10/30/2023 11:07:28 96.1 81.5-97.5 (fL) Final MCH 10/30/2023 11:07:28 29.2 27.0-34.0 (pg) Final MCHC 10/30/2023 11:07:28 30.4 32.0-36.0 (g/dL) Final RDW 10/30/2023 11:07:28 15.7 11.5-15.5 (%) Final Platelets 10/30/2023 11:07:28 619 Above high normal 14 0-400 (K/uL) Final MPV 10/30/2023 11:07:28 10.1 6.6-11.1 ( fL) Final Performing Location LABORATORY [facility] [place] [facility] 0 - [address] [place] [address]
--- OUTSIDE RECORDS SUMMARY | 2023-12-06 23:32 | External Medical Summary | Summary of Care ---
Author Name Unknown Organization [facility] Address [address] [place] [address] Phone [phone] Care Team Providers Care Tire Fabric Impregnating Range Tender Name Role Phone Toshia Reynaga DO Primary Care Provider [phone] Reason for Visit * Reason Comments Medication Management Encounter Details Date Type Department Care Team (Late st Contact Info) Description 10/31/2023 9:00 AM EDT Pharmacy Pharmacy Hematology Oncology [facility] [address] [place], [place] [phone] [facility] Hem/Onc [address] [place], [place] [id number] Chronic ITP (idiopathic thrombocytopenia) ([facility])* Allergies Active Allergy Reactions Criticality Noted Date [...] as of this encounter Progress Notes * Gifty Irizarry, [facility] - 10/31/2023 1:02 PM EDT MEDICATION THERAPY MANAGEMENT AVATROMBOPAG TREATMENT PROGRESS NOTE Edilma Kennedy [phone] Patient Phone Numbers son Christian Son: Christian Communication: Spoke to: Patient and Son Treatment: Medication: Avatrombopag (Doptelet) Indication/Staging/Diagnosis Code: ITP/D69.3 Dose: 20mg daily ( 09/25/23) Administration: with food Start Date: November 2019 Primary Bridal Sales Consultant/Oncologist: Dr. Gabriel Choi Additional therapy: Rutiximab x 2 Dose adjustment / medication hold: 09/14/23-09/24/23: avatrombopag held due to thrombocytosis (PLT 919K) 09/25/23: resume avatrombopag at 20mg daily 10/25/23-present: avatrombopag held due to thrombocytosis (PLT 684K) Interval History: Pt admitted to [facility] 05/23/22 for bleeding and PLT < 10K and transferred to [facility] [place] 05/24/22 and discharged 06/18/22 Per OV 03/09/23, lab monitoring extended to monthly Admitted to [facility] 09/01/23-09/06/23 for CHF/COPD exacerbation - avatrombopag continued during admission despite PLT 718K 09/01/23 Admitted to [facility] 10/18/23-10/22/23 for COPD exacerbation Changes to medication list since last visit? No Assessment and plan: PLT from 10/30/23 above goal (50-200K) at 619K Hgb 10.4, declining will monitor closely All other labs stable Per discussion with covering provider Gomez Rosales NP, HOLD avatrombopag due to thrombocytosis Advised patient and son to continue to hold avatrombopag Pt and son verbalized understanding Repeat labs scheduled 11/05 @ 930am Assessment of compliance: N/A Dose adjustment needed based on lab or adverse drug reaction? Yes, HOLD Follow up: 1 week Gifty Irizarry, AleenaD, BCOP Clinical Pharmacist [facility] 10/31/2023, 1:14 PM Pertinent labs: Latest Reference Range & Units 10/11/23 10:32 10/25/23 14:50 10/30/23 11:07 WBC 4.00 - 10.80 K/uL 11.07 (H) 19.71 (H) 14.45 (H) RBC 3.85 - 5.15 M/uL 3.77 4.03 3.56 HGB 12.0 - 15.3 g/dL 11.5 (L) 11.9 (L) 10.4 (L) HCT 36.0 - 45.2 % 36.6 38.4 34.2 (L) MCV 81.5 - 97.5 fL 97.1 95.3 96.1 MCH 27.0 - 34.0 pg 30.5 29.5 29.2 MCHC 32.0 - 36.0 g/dL 31.4 31.0 30.4 RDW 11.5 - 15.5 % 16.4 15.7 15.7 PLT 140 - 400 K/uL 154 816 (H) 619 (H) MPV 6.6 - 11.1 fL 13.0 10.7 10.1 CBC WITH WBC DIFFERENTIAL Rpt ! Rpt ! Rpt ! Absolute Neutrophils 1.80 - 7.70 K/uL 7.90 (H) 18.07 (H) 11.44 (H) (H): Data is abnormally high (L): Data is abnormally low !: Data is abnormal (E): External lab result Rpt: View report in Results Review for more information Time Spent on Encounter: 11 - 15 minutes Encounter Group: Hematology Encounter Interventions Item Category: Oral Chemotherapy Other: avatrombopag Problem/Rationale: Safety: Dosage too high - Dose too high Pharmacist Intervention(s): Care coordination, Clarification with Provider, Lab monitoring, and Medication held Magnitude of Intervention: Modification of medication for asymtomatic patients (Level 2) documented in this encounter Plan of Treatment Upcoming Encounters Date Type Department Care Team (Late st Contact Info) Description 11/01/2023 2:30 PM EDT [facility] [address] [address] 11/06/2023 9:00 AM EDT Pharmacy Pharmacy Hematology Oncology [facility] [address] [place] [address] [facility] Hem/Onc [facility] [place] [address] 11/06/2023 9:30 AM EDT [facility] [address] [place] [phone] [place] [address] [address] 12/21/2023 1:00 PM EDT Office Visit Family Practice [facility] [address] [address] Toshia Reynaga DO 132 [place] [address] 12/21/2023 2:00 PM EDT Office Visit Cardiology, [facility] [address] [place] [address] Huong Oseguera CRNP [address] [place] [address] 01/03/2024 11:15 AM EDT Office Visit Hematology/Oncology [facility] 200 [facility] [place] [phone] Zeeshan Choi MD 200 [facility] [place] [address] 01/24/2024 12:40 PM EDT Office Visit Family Practice [facility] [address] [place] [address] Toshia Reynaga DO [address] [place] [address] Health Maintenance Due Date Last Done Comments Pneumococcal Vaccine: 65+ Years (1 of 2 - PCV) 09/29/1941 Depression Screening 1947 DTaP,Tdap,and Td Vaccines (1 - Tdap) 09/29/1954 Zoster Vaccines (1 of 2) 09/29/1985 COVID-19 Vaccine (1 - 2022- season) 2023 CKD PHOS USE SMARTSET 35429 11/11/2023 11/10/2022 Influenza Vaccine (FLU shot) (Season Ended) 2024 Albumin/Creatinine Ratio 05/11/2024 05/11/2023, 07/24 CKD HGB USE SMARTSET 07787 10/29/202410/29, 10/30/2023, 10/25/2023, Additional history exists O2 [...] purpura documented in this encounter Care Teams Tire Fabric Impregnating Range Tender Relationship Specialty Start Date End Date Toshia Reynaga DO [address] [place] [address] PCP - General Family Medicine 12/07/22 documented as of this encounter
--- OUTSIDE RECORDS SUMMARY | 2023-12-06 23:32 | External Medical Summary | Summary of Care ---
Author Name Unknown Organization [facility] Address [address] [place] [address] Phone [phone] Care Team Providers Care Natural Resource Officer Name Role Phone Toshia Reynaga DO Primary Care Provider [phone] Reason for Visit * Reason Onset Date Comments Advice 10/24/2023 Encounter Details Date Type Department Care Team (Late st Contact Info) Description 10/24/2023 Telephone Family Practice [facility] [address] [facility] [address] Toshia Reynaga DO [address] [facility] [place] [address] Advice Allergies Active Allergy Reactions Criticality Noted Date Comments Lisinopril Other (Please comment) 05/06/2022 Burning in throat documented as of this encounter (statuses as of 10/25/2023) Medications Medication Sig Dispensed Refills Start Date [...] the morning. 90 Tablet 2 08/02/2023 Active Spacer/Aero-Holdin g Chambers Device Use with inhaler. 1 Each 0 09/12/2023 Active Albuterol Sulfate (2.5 MG/3ML) 0.083% Inhalation Nebulization Solution (Proventil) Inhale 1 Vial via nebulizer every 4 hours as needed for Wheezing. 3 mL 1 09/12/2023 Active Additional Information Patient not taking.Reported on 10/04/2023 Albuterol Sulfate HFA 108 (90 Base) MCG/ACT [...] Active amLODIPine Besylate 5 MG Oral Tablet (Norvasc)Indicatio [...] as of this encounter (statuses as of 10/25/2023) Active Problems Problem Noted Date Diagnosed Date [...] as of this encounter (statuses as of 10/25/2023) Resolved Problems Problem Noted Date Diagnosed Date Resolved Date Chronic obstructive pulmonary disease 05/11/2023 06/08/2023 Overview: Per COPD GOLD Classification documented as of this encounter (statuses as of 10/25/2023) Immunizations No known immunizationsdocumented as of this [...] encounter Miscellaneous Notes * Telephone Encounter - Nichole Kim LPN - 10/24/2023 3:29 PM EDT See most recent bw results. No BMP done. See message below. Do you want to reorder? * Telephone Encounter - Alicia Almazan OSA - 10/24/2023 2:08 PM EDT Seamus with [facility] calling to inform the PCP that there was a specimen issue possible contamination and the test will be cancelled. Specimen will need to be redrawn for the BMP. Results not capable with life. Likely EDTA contamination. documented in this encounter Plan of Treatment Upcoming Encounters Date Type Department Care Team (Late st Contact Info) Description 10/25/2023 2:00 PM EDT Office Visit [facility] [address] [place] [address] Toshia Reynaga, DO [address] [place] [address] 10/31/2023 11:30 AM EDT PulmDiagnostic Pulmonary Function Lab, [facility] [address] [place] [address] West, [address] [facility] [place] [address] 11/01/2023 2:30 PM EDT Cardiac Studies Cardiac Studies, [facility] [address] [place] [address] 11/14/2023 9:40 AM EDT Office Visit [facility] [address] [place] [address] Toshia Reynaga, DO [address] [place] [address] 12/21/2023 2:00 PM EDT Office Visit Cardiology, [facility] [address] [place] [address] Huong Oseguera CRNP [address] [place] [address] 01/03/2024 11:15 AM EDT Office Visit Hematology/Oncology [facility] [place] [address] [place] [address] Zeeshan Choi MD [address] [place] [address] Health Maintenance Due Date Last Done Comments Pneumococcal Vaccine: 65+ Years (1 of 2 - PCV) 09/29/1941 Depression Screening 1947 DTaP,Tdap,and Td Vaccines (1 - Tdap) 09/29/1954 Zoster Vaccines (1 of 2) 09/29/1985 COVID-19 Vaccine (1 - 2022-24 season) 2023 CKD PHOS USE SMARTSET 89090 11/11/2023 11/10/2022 Influenza Vaccine (FLU shot) (Season Ended) 2024 Albumin/Creatinine Ratio 05/11/2024 05/11/2023, 07/24 O2 ASSESSMENT COMPLETED IN PAST YEAR FOR COPD 09/18/2024 09/18/2023 CKD HGB USE SMARTSET 38223 10/23/202410/23, 10/11/2023, 10/11/2023, Additional history exists DXA Scan 12/07/2032 12/07/2022 [...] filedocumented as of this encounter Care Teams Natural Resource Officer Relationship Specialty Start Date End Date Toshia Reynaga DO [address] [place] [address] PCP - General Family Medicine 12/07/22 documented as of this encounter
--- OUTSIDE RECORDS SUMMARY | 2023-12-06 23:32 | External Medical Summary | Summary of Care ---
Author Name Unknown Organization [facility] Address [address] [place] [address] Phone [phone] Care Team Providers Care Manager Clinical Informatics Name Role Phone Toshia Reynaga DO Primary Care Provider [phone] Reason for Visit * Reason Comments Outpatient Testing Encounter Details Date Type Department Care Team (Late st Contact Info) Description 10/30/2023 11:40 AM EDT Laboratory Laboratory, [facility] [address] [place] [address] [facility] [address] [place] [address] Chronic ITP (idiopathic thrombocytopenia) ([facility]); Chronic heart failure with preserved ejection fraction ([facility]) Allergies Active Allergy Reactions Criticality Noted Date Comments Lisinopril Other (Please comment) 05/06/2022 Burning in throat documented as of this encounter (statuses as of 10/30/2023) Medications Medication Sig Dispensed Refills Start Date [...] as of this encounter (statuses as of 10/30/2023) Active Problems Problem Noted Date Diagnosed Date [...] as of this encounter (statuses as of 10/30/2023) Resolved Problems Problem Noted Date Diagnosed Date Resolved Date Chronic obstructive pulmonary disease 05/11/2023 06/08/2023 Overview: Per COPD GOLD Classification documented as of this encounter (statuses as of 10/30/2023) Immunizations No known immunizationsdocumented as of this encounter Social History Tobacco Use Types Packs/Day Years Used Date Smoking Tobacco: Former Cigarettes 0.3 5 1 714 - 3731 Passive Smoke Exposure: Never Smokeless Tobacco: Never [...] Team (Late st Contact Info) Description 10/31/2023 11:30 AM EDT PulmDiagnostic Pulmonary Function Lab, [facility] [address] [place] [address] [address], [address] [place] [address] 11/01/2023 2:30 PM EDT Cardiac Studies Cardiac Studies, [facility] [address] [place] [address] 12/21/2023 1:00 PM EDT Office Visit Family Practice [facility] [address] [place] [address] Toshia Reynaga DO [address] [place] [address] 12/21/2023 2:00 PM EDT Office Visit Cardiology, [facility] [address] [place] [address] Huong Oseguera CRNP [address] [place] [address] 01/03/2024 11:15 AM EDT Office Visit Hematology/Oncology [facility] [address] [facility] [place] [phone] Zeeshan Choi MD [address] [facility] [place] [address] 01/24/2024 12:40 PM EDT Office Visit Family Practice [facility] [address] [place] [address] Toshia Reynaga DO [address] [place] [address] Pending Results Name Type Priority Associated Diagnoses Date /Time CBC WITH WBC DIFFERENTIAL Lab STAT Chronic ITP (idiopathic thrombocytopenia) ([facility]) 10/30/2023 11:07 AM EDT BASIC METABOLIC PANEL Lab Routine Chronic heart failure with preserved ejection fraction ([facility]) 10/30/2023 11:07 AM EDT CBC Lab STAT Chronic ITP (idiopathic thrombocytopenia) ([facility]) 10/30/2023 11:07 AM EDT DIFFERENTIAL, AUTOMATED Lab STAT Chronic ITP (idiopathic thrombocytopenia) ([facility]) 10/30/2023 11:07 AM EDT Health Maintenance Due Date Last Done Comments Pneumococcal Vaccine: 65+ Years (1 of 2 - PCV) 09/29/1941 Depression Screening 1947 DTaP,Tdap,and Td Vaccines (1 - Tdap) 09/29/1954 Zoster Vaccines (1 of 2) 09/29/1985 COVID-19 Vaccine (1 - 2022- season) 2023 CKD PHOS USE SMARTSET 39607 11/11/2023 11/10/2022 Influenza Vaccine (FLU shot) (Season Ended) 2024 Albumin/Creatinine Ratio 05/11/2024 05/11/2023, 07/24 CKD HGB USE SMARTSET 66661 10/24/202410/24, 10/25/2023, 10/24/2023, Additional history exists O2 ASSESSMENT COMPLETED IN PAST YEAR FOR COPD 10/24/2024 10/25/2023 DXA Scan 12/07/2032 12/07/2022 Alpha-1 Antitrypsin Completed [...] ITP (idiopathic thrombocytopenia) (HCC) Immune thrombocytopenic purpura Chronic heart failure with preserved ejection fraction (HCC) documented in this encounter Care Teams Manager Clinical Informatics Relationship Specialty Start Date End Date Toshia Reynaga DO [address] [place] [address] PCP - General Family Medicine 12/07/22 documented as of this encounter
--- OUTSIDE RECORDS SUMMARY | 2023-12-06 23:32 | External Medical Summary | Summary of Care ---
Author Name Unknown Organization [facility] Address [address] [place] [address] Phone [phone] Care Team Providers Care Back Tacker Name Role Phone Toshia Garza DO Primary Care Provider [phone] Reason for Visit * Reason Onset Date Comments Hospital Follow-Up Hospital Follow-Up 10/25/2023 Encounter Details Date Type Department Care Team (Late st Contact Info) Description 10/25/2023 2:00 PM EDT Office Visit Family [facility] [address] [facility] [place] [address] Toshia Garza DO [facility] [place] [address] Hospital discharge follow-up*; DORETHA (acute kidney injury) (HCC); COPD exacerbation (HCC) Allergies Active Allergy Reactions Criticality Noted [...] Sign Reading Time Taken Comments Blood Pressure 90/50 10/25/2023 2:00 PM EDT Pulse 75 10/25/2023 2:00 PM EDT Temperature - - Respiratory Rate - - Oxygen Saturation 94% 10/25/2023 2:00 PM EDT 1 L O2 Inhaled Oxygen Concentration - - Weight 48.6 kg (107 lb 2 oz) 10/25/2023 2:00 PM EDT Height - - Body Mass Index 20.24 09/18/2023 3:02 PM EST documented in this encounter Progress Notes * Toshia Garza DO - 10/25/2023 2:14 PM EDT Subjective: Edilma Kennedy is a 88 year old female. Chief Complaint Patient presents with Hospital Follow-Up Hospital Follow-Up There are no exam notes on file for this visit. HPI: This is a 88 year old female with PMHx as below presents with hospital follow up Admitted to [facility] Admitted 10/17 Discharged 10/21 Currently on 1L oxygen Dx with COPD exacerbation/ acute resp failure/dehydration - sent home with abx/prednisone taper DORETHA 2/2 dehydration No acute HF Is to have home health - PT/OT - unsure if has started Nurse did come in for labs - reviewed Has cardio/pulmonary testing upcoming next week Overall feels much improved with the oxygen Advised on getting pulse oximeter to monitor Health Maintenance Due Topic Date Due Pneumococcal Vaccine: 65+ Years (1 of 2 - PCV) Never done Depression Screening Never done DTaP,Tdap,and Td Vaccines (1 - Tdap) Never done Zoster Vaccines (1 of 2) Never done COVID-19 Vaccine (1 - ) Never done CKD PHOS USE SMARTSET 76584 11/11/2023 Patient Active Problem List Diagnosis Code HTN, goal below 140/90 I10 Chronic ITP (idiopathic thrombocytopenia) ([facility]) D69.3 Constipation K59.00 Protein-calorie malnutrition ([facility]) E46 Stage 3a chronic kidney disease ([facility]) N18.31 Hx of nonmelanoma skin cancer Z85.828 COPD, group B, by GOLD 2017 classification ([facility]) J44.9 Moderate pulmonary hypertension ([facility]) I27.20 Current Outpatient Medications Medication Sig Dispense Refill [...] mouth in the morning. 90 Tablet 2 Spacer/Aero-Holding Chambers Device Use with inhaler. 1 [...] Ellipta 100-62.5-25 MCG/ACT Aerosol Powder Breath Activated (Fbcmtabgfts-Cghnvlikoxcn-Msrjyyierh) Inhale 1 Puff by mouth in the morning. 180 Blister Dosing Unit 1 amLODIPine Besylate 5 MG Oral Tablet (Norvasc) Take 1 Tablet by mouth in the morning. 90 Tablet 3 Furosemide 40 MG Oral Tablet (Lasix) Take 1 Tablet by mouth daily. 90 Tablet 3 Current Facility-Administered Medications Medication Dose Route [...] performed by Paula Callahan MD at OR [facility] Review of patient's allergies indicates: Allergen Reactions [...] date: 1973 Quit date: 1978 Years since quittin.2 Passive exposure: Never Smokeless tobacco: Never Vaping [...] negative. Wt Readings from Last 3 Encounters: 10/25/23 48.6 kg (107 lb 2 oz) 10/04/23 45.8 kg (101 lb) 09/18/23 50.3 kg (111 lb) Results for orders placed or performed in visit on 10/24/23 CHEMISTRY-OUTSIDE Result Value Ref Range Not all results display below - see scan for full detail SEE SCAN: CBC CREATININE-OUTSIDE LAB EGFR-OUTSIDE LAB POTASSIUM-OUTSIDE LAB GLUCOSE-OUTSIDE LAB HOURS FASTING TRIGLYCERIDES-OUTSIDE LAB CHOLESTEROL-OUTSIDE LAB HDL-OUTSIDE LAB CHOL/HDL RATIO-OUTSIDE LAB LDL (CALCULATED)-OUTSIDE LAB LDL (DIRECT MEASURE)-OUTSIDE LAB HEMOGLOBIN, Y0T-DIQWEIE LAB PHOSPHORUS-OUTSIDE LAB PTH-OUTSIDE LAB MICROALBUMIN RATIO-OUTSIDE LAB PROTEIN, UA-OUTSIDE LAB HGB 11.3 (L) 12.0 - 16.0 GM/DL OBJECTIVE: Physical Exam: BP 90/50 | Pulse 75 | Wt 48.6 kg (107 lb 2 oz) | SpO2 94% Comment: 1 L O2 | BMI 20.24 kg/m | BSA 1.45 m General: alert, healthy, and no distress Heart: regular rate & rhythm, no murmur, and no gallops Lungs: lungs clear to auscultation, decreased breath sounds Skin: pos ecchymosis R upper thigh Hospital discharge follow-up (Primary) - DISCH MED RECON CUR MED LIS DORETHA (acute kidney injury) (HCC) - CBC WITH WBC DIFFERENTIAL; Future; Expected date: 10/25/2023 - COMPREHENSIVE METABOLIC PANEL; Future; Expected date: 10/25/2023 COPD exacerbation (HCC) - CBC WITH WBC DIFFERENTIAL; Future; Expected date: 10/25/2023 - COMPREHENSIVE METABOLIC PANEL; Future; Expected date: 10/25/2023 Follow Up: Return in about 3 months (around 01/24/2024), or if symptoms worsen or fail to improve, for Clinic Visit. | For: Clinic Visit | Check-out note: Cancel 11/13 appt Toshia Garza DO documented in this encounter Plan of Treatment Upcoming Encounters Date Type Department Care Team (Late st Contact Info) Description 10/31/2023 11:30 AM EDT PulmDiagnostic Pulmonary Function Lab, [address] [place] [address] [place] [address] [place] [address] 11/01/2023 2:30 PM EDT Cardiac Studies Cardiac Studies, [facility] [address] [place] [address] 12/21/2023 1:00 PM EDT Office Visit [facility] [address] [place] [address] Toshia Garza, DO [address] [place] [address] 12/21/2023 2:00 PM EDT Office Visit Cardiology, [facility] [address] [place] [address] Huong Oseguera CRNP [address] [place] [address] 01/03/2024 11:15 AM EDT Office Visit Hematology/Oncology [facility] [place] [phone] Zeeshan Choi MD 200 [facility], [place] [address] 01/24/2024 12:40 PM EDT Office Visit [facility] [address] [place] [address] Tsohia Garza, DO [address] [place] [address] Pending Results Name Type Priority Associated Diagnoses Date /Time CBC WITH WBC DIFFERENTIAL Lab Routine DORETHA (acute kidney injury) (HCC) COPD exacerbation (HCC) 10/25/2023 2:50 PM EDT COMPREHENSIVE METABOLIC PANEL Lab Routine DORETHA (acute kidney injury) (HCC) COPD exacerbation (HCC) 10/25/2023 2:50 PM EDT Scheduled Orders Name Type Priority Associated Diagnoses Orde r Schedule CBC WITH WBC DIFFERENTIAL Lab Routine DORETHA (acute kidney injury) (HCC) COPD exacerbation (HCC) Expected: 10/25/2023 (Approximate), Expires: 10/24/2024 COMPREHENSIVE METABOLIC PANEL Lab Routine DORETHA (acute kidney injury) (HCC) COPD exacerbation (HCC) Expected: 10/25/2023 (Approximate), Expires: 10/24/2024 Health Maintenance Due Date Last Done Comments Pneumococcal Vaccine: 65+ Years (1 of 2 - PCV) 09/29/1941 Depression Screening 1947 DTaP,Tdap,and Td Vaccines (1 - Tdap) 09/29/1954 Zoster Vaccines (1 of 2) 09/29/1985 COVID-19 Vaccine (1 - 2022- season) 2023 CKD PHOS USE SMARTSET 24799 11/11/2023 11/10/2022 Influenza Vaccine (FLU shot) (Season Ended) 2024 Albumin/Creatinine Ratio 05/11/2024 05/11/2023, 07/24 CKD HGB USE SMARTSET 04653 10/23/202410/23, 10/11/2023, 10/11/2023, Additional history exists O2 ASSESSMENT COMPLETED IN [...] Hospital discharge follow-up- Primary Other follow-up examination DORETHA (acute kidney injury) (HCC) Acute kidney failure, unspecified COPD exacerbation (HCC) Obstructive chronic bronchitis with exacerbation documented in this encounter Care Teams Back Tacker Relationship Specialty Start Date End Date Toshia Garza DO [address] [place] [address] PCP - General Family Medicine 12/07/22 documented as of this encounter"
--- OUTSIDE RECORDS SUMMARY | 2023-12-06 23:32 | External Medical Summary | Summary of Care ---
Author Name Unknown Organization [facility] Address [address] [place] [address] Phone [phone] Care Team Providers Care Radiology Assistant Name Role Phone Toshia Reynaga DO Primary Care Provider [phone] Reason for Visit * Reason Comments Oxygen Assessment [address] Encounter Details Date Type Department Care Team (Latest Contact Info) Description 10/31/2023 11:30 AM EDT PulmDiagnostic Pulmonary Function Lab, [facility] 132 [place] [address] West, [address] [place] [address] COPD, severe (HCC)* Allergies Active Allergy Reactions Criticality Noted Date [...] in this encounter Nursing Notes * Saleem Dinh RRT - 10/31/2023 11:38 AM EDT Edilma Kennedy [...] liters was 89%. documented in this encounter Plan of Treatment Upcoming Encounters Date Type Department Care Team (Late st Contact Info) Description 11/01/2023 2:30 PM EDT Cardiac Studies Cardiac Studies, [facility] [address] [place] [address] 12/21/2023 1:00 PM EDT Office Visit [facility] [address] [place] [address] Toshia Reynaga, [address] [place] [address] 12/21/2023 2:00 PM EDT Office Visit Cardiology, [facility] [address] [place] [address] Huong Oseguera CRNP [address] [place] [address] 01/03/2024 11:15 AM EDT Office Visit Hematology/Oncology [facility] [address] [facility] [place] [phone] Zeeshan Choi MD 200 [facility] [place] [address] 01/24/2024 12:40 PM EDT Office Visit [facility] [address] [place] [address] Toshia Reynaga, [address] [place] [address] Health Maintenance Due Date Last Done Comments Pneumococcal Vaccine: 65+ Years (1 of 2 - PCV) 09/29/1941 Depression Screening 1947 DTaP,Tdap,and Td Vaccines (1 - Tdap) 09/29/1954 Zoster Vaccines (1 of 2) 09/29/1985 COVID-19 Vaccine (1 - 2022- season) 2023 CKD PHOS USE SMARTSET 53510 11/11/2023 11/10/2022 Influenza Vaccine (FLU shot) (Season Ended) 2024 Albumin/Creatinine Ratio 05/11/2024 05/11/2023, 07/24 O2 ASSESSMENT COMPLETED IN PAST YEAR FOR COPD 10/24/2024 10/25/2023 CKD HGB USE SMARTSET 13607 10/29/202410/29, 10/30/2023, 10/25/2023, Additional history exists DXA Scan 12/07/2032 12/07/2022 [...] Primary Chronic airway obstruction, not elsewhere classified documented in this encounter Care Teams Radiology Assistant Relationship Specialty Start Date End Date Toshia Reynaga DO [address] [place] [address] PCP - General Family Medicine 12/07/22 documented as of this encounter
--- OUTSIDE RECORDS SUMMARY | 2023-12-06 23:32 | External Medical Summary | Summary of Care ---
Author Name Unknown Organization [facility] Address [address] [place] [address] Phone [phone] Care Team Providers Care Waterproofing Machine Operator Name Role Phone Toshia Reynaga DO Primary Care Provider [phone] Reason for Visit * Reason Comments Medication Management Encounter Details Date Type Department Care Team (Late st Contact Info) Description 10/25/2023 9:00 AM EDT Pharmacy Pharmacy Hematology Oncology [facility] [address] [place], [place] [id number] [facility] Hem/Onc [address] [place], [place] [id number] Chronic ITP (idiopathic thrombocytopenia) (HCC)* Allergies Active Allergy Reactions Criticality Noted [...] this encounter Progress Notes * Winter Casiano, [facility] - 10/25/2023 9:38 AM EDT MEDICATION THERAPY MANAGEMENT AVATROMBOPAG TREATMENT PROGRESS NOTE Edilma Kennedy [phone] Patient Phone Numbers son Christian Son: Christian Communication: Spoke to: Son Treatment: Medication: Avatrombopag (Doptelet) Indication/Staging/Diagnosis Code: ITP/D69.3 Dose: 20mg daily ( 09/25/23) Administration: with food Start Date: November 2019 Primary Cosmetician/Oncologist: Dr. Gabriel Choi Additional therapy: Rutiximab x 2 Dose adjustment / medication hold: 09/14/23-09/24/23: avatrombopag held due to thrombocytosis (PLT 919K) 09/25/23: resume avatrombopag at 20mg daily 10/25/23-present: avatrombopag held due to thrombocytosis (PLT 684K) Interval History: Pt admitted to [facility] 05/23/22 for bleeding and PLT < 10K and transferred to [facility] 05/24/22 and discharged 06/18/22 Per OV 03/09/23, lab monitoring extended to monthly Admitted to [facility] 09/01/23-09/06/23 for CHF/COPD exacerbation - avatrombopag continued during admission despite PLT 718K 09/01/23 Admitted to [facility] 10/18/23-10/22/23 for COPD exacerbation Changes to medication list since last visit? No Assessment and plan: PLT from 10/24/23 above goal (50-200K) at 684K All other labs stable Per discussion with covering provider Gomez Rosales NP, HOLD avatrombopag due to thrombocytosis Repeat labs 10/29 [place] [address] Assessment of compliance: N/A Dose adjustment needed based on lab or adverse drug reaction? Yes, HOLD Follow up: 1 week Winter Casiano, PharmD, BCOP Clinical Pharmacist, [facility] Oral Chemotherapy [facility] 10/25/2023, 10:48 AM Pertinent labs: see media Time Spent on Encounter: 11 - 15 minutes Encounter Group: Hematology Encounter Interventions Item Category: Oral Chemotherapy Other: avatrombopag Problem/Rationale: Safety: Dosage too high - Dose too high Pharmacist Intervention(s): Clarification with Provider, Lab monitoring, and Medication held Magnitude of Intervention: Modification of medication for asymtomatic patients (Level 2) documented in this encounter Plan of Treatment Upcoming Encounters Date Type Department Care Team (Late st Contact Info) Description 10/25/2023 2:00 PM EDT Office Visit Family Practice [facility] [address] [place] [address] Toshia Reynaga DO [address] [place] [address] 10/31/2023 11:30 AM EDT PulmDiagnostic Pulmonary Function Lab, [facility] [address] [place] [address] [address], [address] [place] [address] 11/01/2023 2:30 PM EDT Cardiac Studies Cardiac Studies, [facility] [address] [place] [address] 11/14/2023 9:40 AM EDT Office Visit Family Practice [facility] [address] [place] [address] Toshia Reynaga, [address] [place] [address] 12/21/2023 2:00 PM EDT Office [facility], [facility] [place] [address] Huong Oseguera CRNP [address] [place] [address] 01/03/2024 11:15 AM EDT Office Visit Hematology/Oncology [facility] 200 [facility] [place] [address] Zeeshan Choi MD 200 [place] [address] Health Maintenance Due Date Last Done Comments Pneumococcal Vaccine: 65+ Years (1 of 2 - PCV) 09/29/1941 Depression Screening 1947 DTaP,Tdap,and Td Vaccines (1 - Tdap) 09/29/1954 Zoster Vaccines (1 of 2) 09/29/1985 COVID-19 Vaccine (1 - 2022- season) 2023 CKD PHOS USE SMARTSET 37228 11/11/2023 11/10/2022 Influenza Vaccine (FLU shot) (Season Ended) 2024 Albumin/Creatinine Ratio 05/11/2024 05/11/2023, 07/24 O2 ASSESSMENT COMPLETED IN PAST YEAR FOR COPD 09/18/2024 09/18/2023 CKD HGB USE SMARTSET 53044 10/23/202410/23, 10/11/2023, 10/11/2023, Additional history exists DXA [...] purpura documented in this encounter Care Teams Waterproofing Machine Operator Relationship Specialty Start Date End Date Toshia Reynaga DO [address] [place] [address] PCP - General Family Medicine 12/07/22 documented as of this encounter
--- OUTSIDE RECORDS SUMMARY | 2023-12-06 23:32 | External Medical Summary | Summary of Care ---
Author Name Unknown Organization [facility] Address [address] [place] [address] Phone [phone] Care Team Providers Care Grid Inspector Name Role Phone Toshia Reynaga DO Primary Care Provider [phone] Reason for Visit * Reason Comments Oxygen Assessment 6 [address] walk Encounter Details Date Type Department Care Team (Latest Contact Info) Description 10/31/2023 11:30 AM EDT PulmDiagnostic Pulmonary Function Lab, [facility] 132 [place] [address] West, [address] [place] [address] COPD, severe (HCC)* Allergies Active Allergy Reactions [...] 2:30 PM EDT Cardiac Studies Cardiac Studies, [facility] 132 [facility] [place] [address] 11/06/2023 9:00 AM EDT Pharmacy Pharmacy Hematology Oncology [facility] [address] [place] [address] [facility], [facility] Hem/Onc [address] [place] [address] 11/06/2023 9:30 AM EDT Laboratory Laboratory, [facility] 132 [facility] [place] [address] [facility] 132 [facility] [place] [address] 12/21/2023 1:00 PM EDT Office Visit Family Practice [facility] 132 [facility] [place] [address] Toshia Reynaga DO [address] [place] [address] 12/21/2023 2:00 PM EDT Office Visit Cardiology, [facility] [address] [place] [address] Huong Oseguera CRNP [address] [place] [address] 01/03/2024 11:15 AM EDT Office Visit Hematology/Oncology [place] [place] 200 [facility] [place] [address] Zeeshan Choi MD 200 [facility] [place] [address] 01/24/2024 12:40 PM EDT Office Visit [facility] [address] [place] [address] Toshia Reynaga, [address] [place] [address] Health Maintenance Due Date Last Done Comments Pneumococcal Vaccine: 65+ Years (1 of 2 - PCV) 09/29/1941 Depression Screening 1947 DTaP,Tdap,and Td Vaccines (1 - Tdap) 09/29/1954 Zoster Vaccines (1 of 2) 09/29/1985 COVID-19 Vaccine (1 - season) 2023 CKD PHOS USE SMARTSET 48320 11/11/2023 11/10/2022 Influenza Vaccine (FLU shot) (Season Ended) 2024 Albumin/Creatinine Ratio 05/11/2024 05/11/2023, 07/24 CKD HGB USE SMARTSET 48702 10/29/202410/29, 10/30/2023, 10/25/2023, Additional history exists O2 [...] classified documented in this encounter Care Teams Grid Inspector Relationship Specialty Start Date End Date Toshia Reynaga DO [address] [place] [address] PCP - General Family Medicine 12/07/22 documented as of this encounter
--- OUTSIDE RECORDS SUMMARY | 2023-12-06 23:32 | External Medical Summary | Summary of Care ---
Author Name Unknown Organization [facility] Address [address] [place] [address] Phone [phone] Care Team Providers Care Pre K Lead Teacher Name Role Phone Toshia Reynaga DO Primary Care Provider [phone] Reason for Visit * Reason Comments Outpatient Testing Encounter Details Date Type Department Care Team (Late st Contact Info) Description 10/25/2023 2:50 PM EDT Laboratory Laboratory, [facility] [address] [place] [address] [facility] [address] [place] [address] DORETHA (acute kidney injury) ([facility]); COPD exacerbation ([facility]) Allergies Active Allergy Reactions Criticality [...] 11:30 AM EDT PulmDiagnostic Pulmonary Function Lab, [facility] [address] [address] [address], [address] [place] [address] [address] 11/01/2023 2:30 PM EDT Cardiac Studies Cardiac Studies, [facility] [address] [place] [address] [address] 12/21/2023 1:00 PM EDT Office Visit Family Practice [facility] [address] [place] [address] Toshia Reynaga DO [address] [place] [address] 12/21/2023 2:00 PM EDT Office Visit Cardiology, [facility] [address] [place] [address] Huong Oseguera CRNP [address] [place] [address] 01/03/2024 11:15 AM EDT Office Visit Hematology/Oncology [facility] [place] [place] [phone] Zeeshan Choi MD [address] [facility] [place] [address] 01/24/2024 12:40 PM EDT Office Visit Family Practice [facility] [address] [place] [address] Toshia Reynaga DO 132 [facility] [place] [address] Pending Results Name Type Priority Associated Diagnoses Date /Time CBC WITH WBC DIFFERENTIAL Lab Routine DORETHA (acute kidney injury) (HCC) COPD exacerbation (HCC) 10/25/2023 2:50 PM EDT COMPREHENSIVE METABOLIC PANEL Lab Routine DORETHA (acute kidney injury) (HCC) COPD exacerbation (HCC) 10/25/2023 2:50 PM EDT CBC Lab Routine DORETHA (acute kidney injury) (HCC) COPD exacerbation (HCC) 10/25/2023 2:50 PM EDT DIFFERENTIAL, AUTOMATED Lab Routine DORETHA (acute kidney injury) (HCC) COPD exacerbation (HCC) 10/25/2023 2:50 PM EDT Health Maintenance Due Date Last Done Comments Pneumococcal Vaccine: 65+ Years (1 of 2 - PCV) 09/29/1941 Depression Screening 1947 DTaP,Tdap,and Td Vaccines (1 - Tdap) 09/29/1954 Zoster Vaccines (1 of 2) 09/29/1985 COVID-19 Vaccine (1 - 2022- season) 2023 CKD PHOS USE SMARTSET 89002 11/11/2023 11/10/2022 Influenza Vaccine (FLU shot) (Season Ended) 2024 Albumin/Creatinine Ratio 05/11/2024 05/11/2023, 07/24 CKD HGB USE SMARTSET 88697 10/23/202410/23, 10/11/2023, 10/11/2023, Additional history exists O2 [...] as of this encounter Visit Diagnoses Diagnosis DORETHA (acute kidney injury) (HCC) Acute kidney failure, unspecified COPD exacerbation (HCC) Obstructive chronic bronchitis with exacerbation documented in this encounter Care Teams Pre K Lead Teacher Relationship Specialty Start Date End Date Toshia Reynaga DO [address] [place] [address] PCP - General Family Medicine 12/07/22 documented as of this encounter
--- OUTSIDE RECORDS SUMMARY | 2023-12-06 23:32 | External Medical Summary ---
Author Name Unknown Address Unknown Organization K[facility] [address] [place] [address] Laboratory Report Ordering Provider Test Date Status RAMU VASQUES 10/30/2023 11:07:28 Final Observation Date Value Abnormality Reference (Units ) Status SYNC LEUKOCYTES IN BLOOD BY AUTOMATED COUNT 10/30/2023 11:07:28 14.45 Above high normal 4.00-10.80 (K/uL) Final Segs 10/30/2023 11:07:28 79.1 Above high normal 40.0-75.0 (%) Final Lymphs % 10/30/2023 11:07:28 10.6 Below low normal 18.0-42.0 (%) Final Monos 10/30/2023 11:07:28 8.1 1.0-11.0 (%) Final Eosinophils 10/30/2023 11:07:28 1.9 0.0-6.0 (%) Final Basos 10/30/2023 11:07:28 0.3 0.0-2.0 (%) Final Absolute Segs 10/30/2023 11:07:28 11.44 Above high normal 1.80-7.70 (K/uL) Final Lymphs, absolute 10/30/2023 11:07:28 1.53 1.00-4.80 (K/ul) Final Monos, Abs 10/30/2023 11:07:28 1.17 Above high normal 0.00-1.10 (K/uL) Final Eos, Abs 10/30/2023 11:07:28 0.27 0.00-0.70 (K/uL) Final Basos, Abs 10/30/2023 11:07:28 0.04 0.00-0.20 (K/uL) Final Performing Location [facility] [address] [place] [address]
--- OUTSIDE RECORDS SUMMARY | 2023-12-06 23:33 | External Medical Summary | Summary of Care ---
Author Name Unknown Organization [facility] Address [address] [place] [address] Phone [phone] Care Team Providers Care Slag Skimmer Name Role Phone Toshia Reynaga DO Primary Care Provider [phone] Reason for Visit * Reason Comments New Med Request Encounter Details Date Type Department Care Team (Late st Contact Info) Description 10/10/2023 Refill Family Practice [facility] [address] [place] [address] Toshia Reynaga DO [address] [facility] [place] [address] COPD, very severe (HCC); HTN, goal below 140/90 Allergies Active Allergy Reactions Criticality Noted Date Comments Lisinopril Other (Please comment) 05/06/2022 Burning in throat documented as of this encounter (statuses as of 10/11/2023) Medications Medication Sig Dispensed Refills Start Date End Date Status Cyanocobalamin 1000 MCG Oral Tablet Take 1 Tablet by mouth in the morning. 0 Active Vitamin D3 125 MCG (5000 UT) Oral Capsule Take 1 Capsule by mouth in the morning. 0 Active Polyethylene Glycol 3350 17 GM/SCOOP Oral Powder (MiraLax)Indicati ons:Constipation, unspecified constipation type Take by mouth 17 g as needed for Constipation. Dissolve one heaping tablespoon in 8 ounces of water or juice. 507 g 3 04/25/2022 Active Albuterol Sulfate HFA 108 (90 Base) MCG/ACT Inhalation Aerosol SolutionIndicatio ns:COPD, very severe (HCC) Inhale 2 Puffs by mouth every 4 hours as needed for Cough, Shortness of Breath or Wheezing. 20.1 g 12 05/16/2023 Active Bisoprolol Fumarate 5 MG Oral Tablet (Zebeta)Indicatio ns:HTN, goal below 140/90 TAKE 1 TABLET EVERY MORNING 90 Tablet 1 07/18/2023 Active Acetaminophen 500 MG Oral Tablet (Tylenol) Take 1 Tablet by mouth every 6 hours as needed. 0 Active Losartan Potassium 100 MG Oral Tablet (Cozaar)Indicatio ns:HTN, goal below 140/90 Take 1 Tablet by mouth in the morning. 90 Tablet 2 08/02/2023 Active Spacer/Aero-Holdi ng Chambers Device Use with inhaler. 1 Each 0 09/12/2023 Active Albuterol Sulfate (2.5 MG/3ML) 0.083% Inhalation Nebulization Solution (Proventil) Inhale 1 Vial via nebulizer every 4 hours as needed for Wheezing. 3 mL 1 09/12/2023 Active Additional Information Patient not taking.Reported on 10/04/2023 Trelemary Ellipta 100-62.5-25 MCG/ACT Aerosol Powder Breath Activated (Fluticasone-Umec lidinium-Vilanter ol) Inhale 1 Puff by mouth in the morning. 60 Blister Dosing Unit 0 09/18/2023 4 Active Furosemide 40 MG Oral Tablet (Lasix) Take 1 Tablet by mouth daily. 90 Tablet 3 09/15/2023 4 Discontinue d(Refill) amLODIPine Besylate 5 MG Oral Tablet (Norvasc)Indicati ons:HTN, goal below 140/90 Take 1 Tablet by mouth in the morning. 30 Tablet 11 10/04/2023 4 Discontinue d(Refill) Hospital, Clinic, or Other Facility Administered Medication Ordered Dose Route Frequency Start Date End Date Status Albuterol Sulfate (Proventil) (2.5 MG/3ML) 0.083% inhalation solution 2.5 mgIndications:COPD, severity to be determined (HCC) 2.5 mg NEBULIZER ONCE PRN 02/17/2023 02/17/2024 Active documented as of this encounter (statuses as of 10/11/2023) Active Problems Problem Noted Date Diagnosed Date [...] as of this encounter (statuses as of 10/11/2023) Resolved Problems Problem Noted Date Diagnosed Date Resolved Date Chronic obstructive pulmonary disease 05/11/2023 06/08/2023 Overview: Per COPD GOLD Classification documented as of this encounter (statuses as of 10/11/2023) Immunizations No known immunizationsdocumented as of this [...] encounter Miscellaneous Notes * Telephone Encounter - Swathi Ward [facility] - 10/11/2023 1:31 PM EDT Refused Prescriptions: Disp Refills Trelegy Ellipta 100-62.5-25 MCG/ACT Aeroso* 0 Refused By: SWATHI WARD for Refusal: Managed by another physician Furosemide 20 MG Oral Tablet (Lasix)0 Refused By: SWATHI WARD for Refusal: Managed by another physician Losartan Potassium 50 MG Oral Tablet (Coza* 0 Refused By: SWATHI WARD for Refusal: Dose needs clarification Spiriva Respimat 2.5 MCG/ACT Inhalation Ae* 0 Refused By: SWATHI WARD for Refusal: Course of treatment complete Albuterol Sulfate HFA 108 (90 Base) MCG/AC* 0 Refused By: SWATHI WARD for Refusal: Managed by another physician amLODIPine Besylate 5 MG Oral Tablet (Norv* 0 Refused By: SWATHI WARD for Refusal: Managed by anotherphysician Albuterol Sulfate (2.5 MG/3ML) 0.083% Inha* 0 Refused By: SWATHI WARD for Refusal: Patient Should Contact Provider First Lansoprazole 30 MG Oral Capsule Delayed Re* 0 RefusedBy: SWATHI WARD for Refusal: Course of treatment complete Bisoprolol Fumarate 5 MG Oral Tablet (Zebe* 0 Refused By: SWATHI WARD for Refusal: Too soon documented in this encounter Plan of Treatment Upcoming Encounters Date Type Department Care Team (Late st Contact Info) Description 10/18/2023 9:00 AM EDT Pharmacy Pharmacy Hematology Oncology [facility] [address] [place] [address] [facility] Hem/Onc [address] [place] [address] 10/31/2023 11:30 AM EDT PulmDiagnostic Pulmonary Function Lab, [facility] [address] [place] [address] [address], [address] [place] [address] 11/01/2023 2:30 PM EDT Cardiac Studies Cardiac Studies, [facility] [address] [place] [address] 11/14/2023 9:40 AM EDT Office Visit Family Practice [facility] [address] [place] [address] Toshia Reynaga DO [address] [place] [address] 12/21/2023 2:00 PM EDT Office Visit Cardiology, [facility] [address] [place] [address] Huong Oseguera CRNP [address] [place] [address] 01/03/2024 11:15 AM EDT Office Visit Hematology/Oncology [facility] [address] [facility] [place] [phone] Zeeshan Choi MD [address] [facility] [place] [address] Health Maintenance Due Date Last Done Comments Pneumococcal Vaccine: 65+ Years (1 of 2 - PCV) 09/29/1941 Depression Screening 1947 DTaP,Tdap,and Td Vaccines (1 - Tdap) 09/29/1954 Zoster Vaccines (1 of 2) 09/29/1985 COVID-19 Vaccine (1 - 2022- season) 2023 Influenza Vaccine (FLU shot) (#1) 2023 CKD PHOS USE SMARTSET 99453 11/11/2023 11/10/2022 Albumin/Creatinine Ratio 05/11/2024 05/11/2023, 07/24 O2 ASSESSMENT COMPLETED IN PAST YEAR FOR COPD 09/18/2024 09/18/2023 CKD HGB USE SMARTSET 39802 10/10/202410/10, 10/11/2023, 09/25/2023, Additional history exists DXA Scan 12/07/2032 12/07/2022 [...] of this encounter Visit Diagnoses Diagnosis COPD, very severe (HCC) Chronic airway obstruction, not elsewhere classified HTN, goal below 140/90 Unspecified essential hypertension documented in this encounter Care Teams Slag Skimmer Relationship Specialty Start Date End Date Toshia Reynaga DO [address] [place] [address] PCP - General Family Medicine 12/07/22 documented as of this encounter
--- OUTSIDE RECORDS SUMMARY | 2023-12-06 23:33 | External Medical Summary | Summary of Care ---
Author Name Unknown Organization [facility] Address [address] [place] [address] Phone [phone] Care Team Providers Care Cosmetic Counselor Name Role Phone Toshia Reynaga DO Primary Care Provider [phone] Reason for Visit * Reason Onset Date Comments Durable Medical Equipment 10/20/2023 Oxygen order Encounter Details Date Type Department Care Team (Late st Contact Info) Description 10/20/2023 Telephone Pulmonary Medicine [facility]hem[facility] Clemens [address] [place] [phone] Enrique Fernandez MD [address] [place] [address] Durable Medical Equipment (Oxygen order) Allergies Active Allergy Reactions Criticality Noted Date Comments Lisinopril Other (Please comment) 05/06/2022 Burning in throat documented as of this encounter (statuses as of 10/20/2023) Medications Medication Sig Dispensed Refills Start Date [...] as of this encounter (statuses as of 10/20/2023) Active Problems Problem Noted Date Diagnosed Date [...] as of this encounter (statuses as of 10/20/2023) Resolved Problems Problem Noted Date Diagnosed Date Resolved Date Chronic obstructive pulmonary disease 05/11/2023 06/08/2023 Overview: Per COPD GOLD Classification documented as of this encounter (statuses as of 10/20/2023) Immunizations No known immunizationsdocumented as of this [...] encounter Miscellaneous Notes * Telephone Encounter - Elena Mcmullen LPN - 10/20/2023 1:45 PM EDT Oxygen orders were placed into the [facility] portal on 10/20/23. documented in this encounter Plan of Treatment Upcoming Encounters Date Type Department Care Team (Late st Contact Info) Description 10/25/2023 9:00 AM EDT Pharmacy Pharmacy Hematology Oncology [place] [address] [place] [address] [facility] Hem/Onc [address] [place] [address] 10/31/2023 11:30 AM EDT PulmDiagnostic Pulmonary Function Lab, [facility] [address] [place] [address] [address], [address] [place], [place] [address] 11/01/2023 2:30 PM EDT Cardiac Studies Cardiac Studies, [facility] [address] [place] [address] 11/14/2023 9:40 AM EDT Office Visit Family Practice [facility] [address] [place] [address] T[address]ia Reynaga, [address] [place] [address] 12/21/2023 2:00 PM EDT Office Visit Cardiology, [facility] [address] [place] [address] Huong Oseguera CRNP [address] [place] [address] 01/03/2024 11:15 AM EDT Office [facility] [phone] Zeeshan Choi MD [address] [place] [address] Health Maintenance Due Date Last Done Comments Pneumococcal Vaccine: 65+ Years (1 of 2 - PCV) 09/29/1941 Depression Screening 1947 DTaP,Tdap,and Td Vaccines (1 - Tdap) 09/29/1954 Zoster Vaccines (1 of 2) 09/29/1985 COVID-19 Vaccine (1 - 2022-24 season) 2023 Influenza Vaccine (FLU shot) (#1) 2023 CKD PHOS USE SMARTSET 29876 11/11/2023 11/10/2022 Albumin/Creatinine Ratio 05/11/2024 05/11/2023, 07/24 O2 ASSESSMENT COMPLETED IN PAST YEAR FOR COPD 09/18/2024 09/18/2023 CKD HGB USE SMARTSET 62716 10/10/202410/10, 10/11/2023, 09/25/2023, Additional history exists DXA [...] filedocumented as of this encounter Care Teams Cosmetic Counselor Relationship Specialty Start Date End Date Toshia Reynaga DO [address] [place] [address] PCP - General Family Medicine 12/07/22 documented as of this encounter
--- OUTSIDE RECORDS SUMMARY | 2023-12-06 23:33 | External Medical Summary | Summary of Care ---
Author Name Unknown Organization [facility] Address [address] [place] [address] Phone [phone] Care Team Providers Care Cake Winder Name Role Phone Toshia Reynaga DO Primary Care Provider [phone] Reason for Visit * Reason Comments Follow Up Encounter Details Date Type Department Care Team (Late st Contact Info) Description 10/04/2023 10:30 AM EDT Office Visit Cardiology, [facility] [address] [facility] [place] [address] Kizzy Badillo PA-C [facility] [place] [address] Chronic heart failure with preserved ejection fraction (HCC)*; HTN, goal below 140/90; Premature atrial contraction Allergies Active Allergy Reactions Criticality Noted Date Comments Lisinopril Other (Please comment) 05/06/2022 Burning in throat documented as of this encounter (statuses as of 10/04/2023) Medications Medication Sig Dispensed Refills Start Date [...] of water or juice. 507 g 3 2 Active Albuterol Sulfate HFA 108 (90 Base) MCG/ACT Inhalation Aerosol SolutionIndicatio ns:COPD, very severe (HCC) Inhale 2 Puffs by mouth every 4 hours as needed for Cough, Shortness of Breath or Wheezing. 20.1 g 12 3 Active Bisoprolol Fumarate 5 MG Oral Tablet (Zebeta)Indicatio ns:HTN, goal below 140/90 TAKE 1 TABLET EVERY MORNING 90 Tablet 1 3 Active Acetaminophen 500 MG Oral Tablet (Tylenol) Take 1 Tablet by mouth every 6 hours as needed. 0 Active Losartan Potassium 100 MG Oral Tablet (Cozaar)Indicatio ns:HTN, goal below 140/90 Take 1 Tablet by mouth in the morning. 90 Tablet 2 4 Active Spacer/Aero-Holdi ng Chambers Device Use with inhaler. 1 Each 0 4 Active Albuterol Sulfate (2.5 MG/3ML) 0.083% Inhalation Nebulization Solution (Proventil) Inhale 1 Vial via nebulizer every 4 hours as needed for Wheezing. 3 mL 1 4 Active Additional Information Patient not taking.Reported on 10/04/2023 Furosemide 40 MG Oral Tablet (Lasix) Take 1 Tablet by mouth daily. 90 Tablet 3 4 Active Trelegy Ellipta 100-62.5-25 MCG/ACT Aerosol Powder Breath Activated (Fluticasone-Umec lidinium-Vilanter ol) Inhale 1 Puff by mouth in the morning. 60 Blister Dosing Unit 0 4 10/18/19 24 Active amLODIPine Besylate 5 MG Oral Tablet (Norvasc)Indicati ons:HTN, goal below 140/90 Take 1 Tablet by mouth in the morning. 30 Tablet 11 4 Active amLODIPine Besylate 10 MG Oral Tablet (Norvasc)Indicati ons:HTN, goal below 140/90 Take 1 Tablet by mouth in the morning. 90 Tablet 2 4 10/04/19 24 Discontinued Hospital, Clinic, or Other Facility Administered Medication Ordered Dose Route Frequency Start Date End Date Status Albuterol Sulfate (Proventil) (2.5 MG/3ML) 0.083% inhalation solution 2.5 mgIndications:COPD, severity to be determined (HCC) 2.5 mg NEBULIZER ONCE PRN 02/17/2023 02/17/2024 Active documented as of this encounter (statuses as of 10/04/2023) Active Problems Problem Noted Date Diagnosed Date [...] as of this encounter (statuses as of 10/04/2023) Resolved Problems Problem Noted Date Diagnosed Date Resolved Date Chronic obstructive pulmonary disease 05/11/2023 06/08/2023 Overview: Per COPD GOLD Classification documented as of this encounter (statuses as of 10/04/2023) Immunizations No known immunizationsdocumented as of this [...] Sign Reading Time Taken Comments Blood Pressure 98/38 10/04/2023 10:30 AM EDT Pulse 60 10/04/2023 10:30 AM EDT Temperature - - Respiratory Rate - - Oxygen Saturation - - Inhaled Oxygen Concentration - - Weight 45.8 kg (101 lb) 10/04/2023 10:30 AM EDT Height - - Body Mass Index 19.08 09/18/2023 3:02 PM EST documented in this encounter Patient Instructions * Patient Instructions* Kizzy Badillo PA-C - 10/04/2023 10:36 AM EDT - Reduce amlodipine to 5 mg daily -Please record your daily weights first thing in the morning after using the bathroom. -Please do not consume more than 64 fluid ounces per day. (64 oz = 8 cups) -Limit sodium intake to no more than 2,000 mg/day. -Put on your compression stockings first thing in the morning and remove at night. Repeat daily. -Elevate your legs throughout the day. 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 At last visit furosemide increased to 40 mg daily. Presents today with son who she lives with. States her leg swelling is improved. Continues to have shortness of breath, saw pulmonology who started her on an inhaler, also uses a nebulizer. Denies chest pain, palpitations, PND, orthopnea, syncope. Has noticed she is more fatigued and lightheaded. Blood pressure today low, does not check it at home. Does not drink much water, maybe a bottle every 2 days. She is compliant with all medications. REVIEW OF SYSTEMS: See HPI for pertinent positives. All others negative other than those noted in the HPI. CONSTITUTIONAL: No change in weight, No weakness, No fatigue and No fevers, No sweats or chills. PULMONARY: No cough, sputum, or hemoptysis, No wheezing, No shortness of breath and No recent change in breathing. CARDIOVASCULAR: No chest pain, + dyspnea on exertion, No edema, No palpitations [...] of water or juice. 507 g 3 Albuterol Sulfate HFA 108 (90 Base) MCG/ACT Inhalation Aerosol Solution Inhale 2 Puffs by mouth every 4 hours as needed for Cough, Shortness of Breath or Wheezing. 20.1 g 12 Bisoprolol Fumarate 5 MG Oral Tablet (Zebeta) TAKE 1 TABLET EVERY MORNING 90 Tablet 1 Acetaminophen 500 MG Oral Tablet (Tylenol) Take 1 Tablet by mouth every 6 hours as needed. amLODIPine Besylate 10 MG Oral Tablet (Norvasc) Take 1 Tablet by mouth in the morning. 90 Tablet 2 Losartan Potassium 100 MG Oral Tablet (Cozaar) Take 1 Tablet by mouth in the morning. 90 Tablet 2 Spacer/Aero-Holding Chambers Device Use with inhaler. 1 Each 0 Furosemide 40 MG Oral Tablet (Lasix) Take 1 Tablet by mouth daily. 90 Tablet 3 Trelegy Ellipta 100-62.5-25 MCG/ACT Aerosol Powder Breath Activated (Ertedxelmul-Slpwywuzyitk-Kazzopqttq) Inhale 1 Puff by mouth in the morning. 60 Blister Dosing Unit 0 Albuterol Sulfate (2.5 MG/3ML) 0.083% Inhalation Nebulization Solution (Proventil) Inhale 1 Vial via nebulizer every 4 hours as needed for Wheezing. (Patient not taking: Reported on 10/04/2023) 3 mL 1 Current Facility-Administered Medications Medication Dose Route Frequency [...] Never Drug use: Never OBJECTIVE/PHYSICAL EXAMINATION: BP 98/38 | Pulse 60 | Wt 45.8 kg (101 lb) | BMI 19.08 kg/m | BSA 1.4 m Wt Readings from Last 3 Encounters: 10/04/23 45.8 kg (101 lb) 09/18/23 50.3 kg (111 lb) 09/15/23 50.6 kg (111 lb 8 oz) General: No acute distress. A+Ox3. HEENT: Normocephalic. Atraumatic. PERRL. EOMI. Conjunctiva and sclera clear. NECK: No carotid bruits. No JVD. Carotid upstrokes are brisk. Heart: RRR. S1 and S2 noted. No murmur. No rubs or gallops. PMI non displaced. Lungs: Clear to auscultation. No wheezes. No rhonchi. No rales. Abdomen: Normal bowel sounds. Soft. Nontender. No masses or organomegaly. No abdominal bruits. Extremities: 1+ bilateral LE edema. No clubbing or cyanosis. Pulses: radial=2/4, posterior tibial=2/4, dorsalis pedis = 2/4. NEURO: No focal deficits. PSYCH: Appropriate affect and insight. DATA Labs & Imaging Reviewed Below: [facility] 01/2023 Patient had a min HR of 44 bpm, max HR of 154 bpm, and avg HR of 56 bpm. Predominant underlying rhythm was Sinus Rhythm. 58 Supraventricular Tachycardia runs occurred, the run with the fastest interval lasting 4 beats with a max rate of 154 bpm, the longest lasting 10.7 secs with an avg rate of 120 bpm. Isolated SVEs were frequent (7.1%, [address]), SVE Couplets wereoccasional (1.3%, 7522), and SVE Triplets were rare (<1.0%, 377). Isolated VEs were rare (<1.0%, 156), VE Couplets were rare (<1.0%, 1), and VE Triplets were rare (<1.0%, 1). No patient triggered events were submitted. No symptoms were reported. The predominant rhythm is sinus rhythm and sinus bradycardia with average rate of 56 beats per minute. Fifty-eight relatively brief episodes of supraventricular tachycardia were observed. Frequent premature atrial contractions are present, 7.1% premature atrial contraction burden. No symptoms reported. Echo 02/07/23 The examination is adequate to evaluate the referral indication. The LV wall thickness is borderline increased (concentric). The left ventricular wall motion is normal. The qualitative LV ejection fraction is 55-59% (normal). The left atrium is moderately enlarged (42-48 ml/m^2). The left ventricular diastolic function is moderately abnormal (grade II). Mild aortic valve sclerosis is present. Aortic stenosis is absent. Mild mitral regurgitation is present. Mild tricuspid regurgitation is present. Mild pulmonary hypertension is present. The estimated pulmonary artery systolic pressure is 41 mm Hg. Episodes of irregular rhythm observed during echocardiogram. Consider EKG and/or Zio patch monitor for further assessment. ASSESSMENT/PLAN: 88 year old female 1. Chronic heart failure with preserved ejection fraction (HCC) 2. HTN, goal below 140/90 - edema improved, however hypotensive with lightheadedness - reduce amlodipine to 5 mg daily - continue furosemide 40 mg daily - continue losartan 100 mg daily - discussed to make sure she is staying well hydrated, heart failure education folder provided, sheis to log weight, blood pressure, and heart rate - nurse blood pressure check next week, she will bring readings to appt - change positions slowly - contact office with any concerns 3. Premature atrial contraction - continue bisoprolol 5 mg daily DISPOSITION: Follow up 3 months or sooner if symptoms worsen/fail to improve. All questions were answered to the patients satisfaction. Patient advised to report to ED with any and all emergencies. The patient agrees to the above plan and will call with additional questions or concerns. Kizzy Badillo PA-C Cardiology, [address] [place] [address] I spent a total of 50 minutes on the date of service in preparation, delivery, and documentation ofthe care provided to Edilma Kennedy excluding any time spent in the performance of separately billed services. This chart was completed in part utilizing [employer] Speech Voice Recognition Software. Grammatical errors, random [...] Nursing Notes * Arely Carter CMA - 10/04/2023 10:28 AM EDT Examination Room: Name: Edilma Kennedy Date of : (1935) Reason for Visit: 1m Interim Hospitalization(s): none Problems/Concerns: lightheaded and dizzy Chest Pain/SOB: denied chest pain, does have some SOB My [facility] is a way you can [...] Care Team (Late st Contact Info) Description 10/11/2023 9:00 AM EDT Pharmacy Pharmacy Hematology Oncology [address] [address] [facility], [facility] Hem/Onc [address] [place] [address] 10/11/2023 10:15 AM EDT Cardiac Studies Cardiac Studies, [facility] [address] [place] [address] 10/11/2023 10:30 AM EDT Laboratory Laboratory, [facility] [address] [facility] [place] [id number] [facility] [address] [place] [address] 11/01/2023 2:30 PM EDT Cardiac Studies Cardiac Studies, [facility] [address] [place] [address] 11/14/2023 9:40 AM EDT Office Visit Family Practice [facility] [address] [facility] [place] [address] Toshia Reynaga DO [address] [place] [address] 12/21/2023 2:00 PM EDT Office Visit Cardiology, [facility] [address] [place] [address] Huong Oseguera CRNP [address] [place] [address] 01/03/2024 11:15 AM EDT Office Visit Hematology/Oncology [facility] [place] [address] [place] [address] Zeeshan Choi MD [address] [place] [address] Health Maintenance Due Date Last Done Comments Pneumococcal Vaccine: 65+ Years (1 of 2 - PCV) 09/29/1941 Depression Screening 1947 DTaP,Tdap,and Td Vaccines (1 - Tdap) 09/29/1954 Zoster Vaccines (1 of 2) 09/29/1985 COVID-19 Vaccine (1 - 2022-24 season) 2023 Influenza Vaccine (FLU shot) (#1) 2023 CKD PHOS USE SMARTSET 46859 11/11/2023 11/10/2022 Albumin/Creatinine Ratio 05/11/2024 05/11/2023, 07/24 O2 ASSESSMENT COMPLETED IN PAST YEAR FOR COPD 09/18/2024 09/18/2023 CKD HGB USE SMARTSET 64475 09/24/202409/24, 09/25/2023, 09/18/2023, Additional history exists DXA Scan 12/07/2032 12/07/2022 [...] of this encounter Visit Diagnoses Diagnosis Chronic heart failure with preserved ejection fraction (HCC)- Primary HTN, goal below 140/90 Unspecified essential hypertension Premature atrial contraction Supraventricular premature beats documented in this encounter Care Teams Cake Winder Relationship Specialty Start Date End Date Toshia Reynaga DO [address] [place] [address] PCP - General Family Medicine 12/07/22 documented as of this encounter"
--- OUTSIDE RECORDS SUMMARY | 2023-12-06 23:33 | External Medical Summary | Summary of Care ---
Author Name Unknown Organization [facility] Address [address] [place] [address] Phone [phone] Care Team Providers Care Plugman Name Role Phone Toshia Reynaga DO Primary Care Provider [phone] Reason for Visit * Reason Comments eRx-Medication Refill Encounter Details Date Type Department Care Team (Late st Contact Info) Description 10/10/[address] [facility] [address] [facility] [place] [address] Toshia Reynaga DO [address] [place] [address] HTN, goal below 140/90 Allergies Active Allergy [...] Active Bisoprolol Fumarate 5 MG Oral Tablet (Zebeta)Indication s:HTN, goal below 140/90 TAKE 1 TABLET EVERY [...] by mouth daily. 90 Tablet 3 09/15/2023 Active Trelegy Ellipta 100-62.5-25 MCG/ACT Aerosol Powder Breath Activated (Fluticasone-Umecl idinium-Vilanterol ) Inhale 1 Puff by mouth in the morning. 60 Blister Dosing Unit 0 09/18/2023 Active amLODIPine Besylate 5 MG Oral Tablet (Norvasc)Indicatio ns:HTN, goal below 140/90 Take 1 Tablet by mouth in the morning. 30 Tablet 11 10/04/2023 Active Hospital, Clinic, or Other Facility Administered [...] encounter Miscellaneous Notes * Telephone Encounter - Azam Escobedo RPh - 10/11/2023 10:01 AM EDT Refused Prescriptions: Disp Refills Bisoprolol Fumarate 5 MG Oral Tablet (Zebe*90 Tab*3 Sig: TAKE 1 TABLET EVERY MORNINGRefused By: AZAM ESCOBEDOason for Refusal: Too soon documented in this encounter Plan of Treatment Upcoming Encounters Date Type Department Care Team (Late st Contact Info) Description 10/11/2023 10:30 AM EDT Laboratory Laboratory, [facility] [place] [phone] [facility] [address] [place] [address] 10/31/2023 11:30 AM EDT PulmDiagnostic Pulmonary Function Lab, [facility] [place] [address] [place] [place] [address] 11/01/2023 2:30 PM EDT Cardiac Studies Cardiac Studies, [facility] [address] [place] [address] 11/14/2023 9:40 AM EDT Office Visit Family Practice [facility] [address] [place] [address] Toshia Reynaga DO [address] [place] [address] 12/21/2023 2:00 PM EDT Office Visit Cardiology, [facility] [address] [place] [address] Huong Oseguera CRNP [address] [place] [address] 01/03/2024 11:15 AM EDT Office Visit Hematology/Oncology [facility] [place] [address] [place] [phone] Zeeshan Choi MD [address] [place] [address] Health Maintenance Due Date Last Done Comments Pneumococcal Vaccine: 65+ Years (1 of 2 - PCV) 09/29/1941 Depression Screening 1947 DTaP,Tdap,and Td Vaccines (1 - Tdap) 09/29/1954 Zoster Vaccines (1 of 2) 09/29/1985 COVID-19 Vaccine (1 - 2022-24 season) 2023 Influenza Vaccine (FLU shot) (#1) 2023 CKD PHOS USE SMARTSET 71852 11/11/2023 11/10/2022 Albumin/Creatinine Ratio 05/11/2024 05/11/2023, 07/24 O2 ASSESSMENT COMPLETED IN PAST YEAR FOR COPD 09/18/2024 09/18/2023 CKD HGB USE SMARTSET 36158 09/24/202409/24, 09/25/2023, 09/18/2023, Additional history exists DXA [...] as of this encounter Visit Diagnoses Diagnosis HTN, goal below 140/90 Unspecified essential hypertension documented in this encounter Care Teams Plugman Relationship Specialty Start Date End Date Toshia Reynaga DO [address] [place] [address] PCP - General Family Medicine 12/07/22 documented as of this encounter
--- OUTSIDE RECORDS SUMMARY | 2023-12-06 23:33 | External Medical Summary ---
Author Name Unknown Address Unknown Organization K0G[facility] [address] [place] [address] Laboratory Report Ordering Provider Test Date Status RONAK LYNCH 10/25/2023 14:50:48 Final Observation Date Value Abnormality Reference (Units ) Status WBC, Total 10/25/2023 14:50:48 19.71 Above high normal 4 .00-10.80 (K/uL) Final RBC 10/25/2023 14:50:48 4.03 3.85-5.15 (M/uL) Final Hemoglobin 10/25/2023 14:50:48 11.9 Below low normal 12 .0-15.3 (g/dL) Final HCT 10/25/2023 14:50:48 38.4 36.0-45.2 (%) Final MCV 10/25/2023 14:50:48 95.3 81.5-97.5 (fL) Final MCH 10/25/2023 14:50:48 29.5 27.0-34.0 (pg) Final MCHC 10/25/2023 14:50:48 31.0 32.0-36.0 (g/dL) Final RDW 10/25/2023 14:50:48 15.7 11.5-15.5 (%) Final Platelets 10/25/2023 14:50:48 816 Above high normal 14 0-400 (K/uL) Final MPV 10/25/2023 14:50:48 10.7 6.6-11.1 ( fL) Final Performing Location [facility] [place] [address] [place] [address]
--- OUTSIDE RECORDS SUMMARY | 2023-12-06 23:33 | External Medical Summary | Summary of Care ---
Author Name Unknown Organization [facility] Address [address] [place] [address] Phone [phone] Care Team Providers Care Commercial Collections Specialist Name Role Phone Toshia Reynaga DO Primary Care Provider [phone] Reason for Visit * Reason Onset Date Comments Test Results 09/19/2023 Encounter Details Date Type Department Care Team (Late st Contact Info) Description 09/19/2023 Telephone Cardiology Nehemiah Dao [address] [place] [address] Kizzy Badillo PA-C [address] [facility] [place] [address] Test Results Allergies Active Allergy Reactions Criticality Noted Date Comments Lisinopril Other (Please comment) 05/06/2022 Burning in throat documented as of this encounter (statuses as of 09/28/2023) Medications Medication Sig Dispensed Refills Start Date [...] every 6 hours as needed. 0 Active amLODIPine Besylate 10 MG Oral Tablet (Norvasc)Indicatio ns:HTN, goal below 140/90 Take 1 Tablet by mouth in the morning. 90 Tablet 2 08/02/2023 Active Losartan Potassium 100 MG Oral Tablet (Cozaar)Indication s:HTN, goal below 140/90 Take 1 Tablet by mouth in the morning. 90 Tablet 2 08/02/2023 Active Spacer/Aero-Holdin g Chambers Device Use with inhaler. 1 Each 0 09/12/2023 Active Albuterol Sulfate (2.5 MG/3ML) 0.083% Inhalation Nebulization Solution (Proventil) Inhale 1 Vial via nebulizer every 4 hours as needed for Wheezing. 3 mL 1 09/12/2023 Active Furosemide 40 MG Oral Tablet (Lasix) Take 1 Tablet by mouth daily. 90 Tablet 3 09/15/2023 Active Trelegy Ellipta 100-62.5-25 MCG/ACT Aerosol Powder Breath Activated (Fluticasone-Umecl idinium-Vilanterol ) Inhale 1 Puff by mouth in the morning. 60 Blister Dosing Unit 0 09/18/2023 10/18/2023 Active Hospital, Clinic, or Other Facility Administered Medication Ordered Dose Route Frequency Start Date End Date Status Albuterol Sulfate (Proventil) (2.5 MG/3ML) 0.083% inhalation solution 2.5 mgIndications:COPD, severity to be determined (HCC) 2.5 mg NEBULIZER ONCE PRN 02/17/2023 02/17/2024 Active documented as of this encounter (statuses as of 09/28/2023) Active Problems Problem Noted Date Diagnosed Date [...] as of this encounter (statuses as of 09/28/2023) Resolved Problems Problem Noted Date Diagnosed Date Resolved Date Chronic obstructive pulmonary disease 05/11/2023 06/08/2023 Overview: Per COPD GOLD Classification documented as of this encounter (statuses as of 09/28/2023) Immunizations No known immunizationsdocumented as of this [...] encounter Miscellaneous Notes * Telephone Encounter - Arely Carter CMA - 09/28/2023 3:52 PM EST Letter mailed. * Telephone Encounter - Arely Carter CMA - 09/19/2023 4:14 PM EST My g sent. * Telephone Encounter - Arely Carter CMA - 09/19/2023 4:13 PM EST ----- Message from Kizzy Badillo PA-C sent at 09/19/2023 8:35 AM EST ----- Stable kidney function, will continue to monitor. documented in this encounter Plan of Treatment Upcoming Encounters Date Type Department Care Team (Late st Contact Info) Description 10/04/2023 9:00 AM EDT Pharmacy Pharmacy Hematology Oncology [facility] [address] [place] [address] [facility] Hem/Onc [address] [place] [address] 10/04/2023 10:30 AM EDT Office Visit Cardiology, [facility] [address] [place] [address] Kizzy Badillo PA-C [address] [place] [address] 11/01/2023 2:30 PM EDT Cardiac Studies Cardiac Studies, [facility] [address] [place] [address] 11/14/2023 9:40 AM EDT Office Visit Family Practice [facility] [address] [place] [address] Toshia Reynaga DO [address] [place] [address] 12/21/2023 2:00 PM EDT Office Visit Cardiology, [facility] [address] [place] [address] Huogn Oseguera CRNP [address] [place] [address] 01/03/2024 11:15 AM EDT Office Visit Hematology/Oncology [facility] [place] [address] [place] [phone] Zeeshan Choi MD [address] [facility] [place] [address] Health Maintenance Due Date Last Done Comments Pneumococcal Vaccine: 65+ Years (1 of 2 - PCV) 09/29/1941 Depression Screening 1947 DTaP,Tdap,and Td Vaccines (1 - Tdap) 09/29/1954 Zoster Vaccines (1 of 2) 09/29/1985 COVID-19 Vaccine (1 - 2022-24 season) 2023 Influenza Vaccine (FLU shot) (#1) 2023 CKD PHOS USE SMARTSET [address]682 11/11/2023 11/10/2022 Albumin/Creatinine Ratio 05/11/2024 05/11/2023, 07/24 O2 ASSESSMENT COMPLETED IN PAST YEAR FOR COPD 09/18/2024 09/18/2023 CKD HGB USE SMARTSET [address] 09/24/202409/24, 09/25/2023, 09/18/2023, Additional history exists DXA [...] filedocumented as of this encounter Care Teams Commercial Collections Specialist Relationship Specialty Start Date End Date Toshia Reynaga DO [address] [place] [address] PCP - General Family Medicine 12/07/22 documented as of this encounter
--- OUTSIDE RECORDS SUMMARY | 2023-12-06 23:33 | External Medical Summary ---
Author Name Unknown Address Unknown Organization [id number][facility] [address] [place] [address] Laboratory Report Ordering Provider Test Date Status RONAK LYNCH 10/25/2023 14:50:48 Final Observation Date Value Abnormality Reference (Units ) Status SYNC LEUKOCYTES IN BLOOD BY AUTOMATED COUNT 10/25/2023 14:50:48 19.71 Above high normal 4.00-10.80 (K/uL) Final Segs 10/25/2023 14:50:48 91.7 Above high normal 40.0-75.0 (%) Final Lymphs % 10/25/2023 14:50:48 3.6 Below low normal 18.0-42.0 (%) Final Monos 10/25/2023 14:50:48 4.5 1.0-11.0 (%) Final Eosinophils 10/25/2023 14:50:48 0.1 0.0-6.0 (%) Final Basos 10/25/2023 14:50:48 0.1 0.0-2.0 (%) Final Absolute Segs 10/25/2023 14:50:48 18.07 Above high normal 1.80-7.70 (K/uL) Final Lymphs, absolute 10/25/2023 14:50:48 0.71 Below low normal 1.00-4.80 (K/ul) Final Monos, Abs 10/25/2023 14:50:48 0.89 0.00-1.10 (K/uL) Final Eos, Abs 10/25/2023 14:50:48 0.02 0.00-0.70 (K/uL) Final Basos, Abs 10/25/2023 14:50:48 0.02 0.00-0.20 (K/uL) Final Performing Location [facility] [place] [address]
--- OUTSIDE RECORDS SUMMARY | 2023-12-06 23:33 | External Medical Summary | Summary of Care ---
Author Name Unknown Organization [facility] Address [address] [place] [address] Phone [phone] Care Team Providers Care Camp Maintenance Supervisor Name Role Phone Toshia Reynaga DO Primary Care Provider [phone] Reason for Visit * Reason Comments Medication Management Encounter Details Date Type Department Care Team (Late st Contact Info) Description 10/11/2023 9:00 AM EDT Pharmacy Pharmacy Hematology Oncology [facility] [address] [place], [place] [id number] [facility] Hem/Onc [address] [place], [place] [phone] Chronic ITP (idiopathic thrombocytopenia) ([facility])* Allergies Active Allergy Reactions Criticality [...] this encounter Progress Notes * Winter Casiano, [facility] - 10/11/2023 11:06 AM EDT MEDICATION THERAPY MANAGEMENT AVATROMBOPAG TREATMENT PROGRESS NOTE Edilma Kennedy [phone] Patient Phone Numbers son Christian Son: Christian Communication: Left message Treatment: Medication: Avatrombopag (Doptelet) Indication/Staging/Diagnosis Code: ITP/D69.3 Dose: 20mg daily ( 09/25/23) Administration: with food Start Date: November 2019 Primary Boom Stick Man/Oncologist: Dr. Gabriel Choi Additional therapy: Rutiximab x 2 Dose adjustment / medication hold: 09/14/23-09/24/23: avatrombopag held due to thrombocytosis (PLT 919K) 09/25/23: resume avatrombopag at 20mg daily Interval History: Pt admitted to [facility] 05/23/22 for bleeding and PLT < 10K and transferred to [facility] 05/24/22 and discharged 06/18/22 Per OV 03/09/23, lab monitoring extended to monthly Admitted to [facility] 09/01/23-09/06/23 for CHF/COPD exacerbation - avatrombopag continued during admission despite PLT 718K 09/01/23 Changes to medication list since last visit? No Assessment and plan: PLT declining to goal (50-200K) Hgb low but improving. Will monitor closely All other labs stable Continue current avatrombopag dose Repeat labs in 1 week Assessment of compliance: N/A Dose adjustment needed based on lab or adverse drug reaction? No Follow up: 1 week Winter Casiano, PharmD, BCOP Clinical Pharmacist, [facility] Oral Chemotherapy [facility] 10/11/2023, 11:16 AM Pertinent labs: Latest Reference Range & Units 09/18/23 15:51 09/25/23 10:54 10/11/23 10:32 WBC 4.00 - 10.80 K/uL 11.39 (H) 9.82 11.07 (H) RBC 3.85 - 5.15 M/uL 3.03 3.18 3.77 HGB 12.0 - 15.3 g/dL 9.3 (L) 9.7 (L) 11.5 (L) HCT 36.0 - 45.2 % 29.4 (L) 31.0 (L) 36.6 MCV 81.5 - 97.5 fL 97.0 97.5 97.1 MCH 27.0 - 34.0 pg 30.7 30.5 30.5 MCHC 32.0 - 36.0 g/dL 31.6 31.3 31.4 RDW 11.5 - 15.5 % 15.9 16.6 16.4 PLT 140 - 400 K/uL 584 (H) 159 154 MPV 6.6 - 11.1 fL 10.5 10.8 13.0 CBC WITH WBC DIFFERENTIAL Rpt ! Rpt ! Rpt ! Absolute Neutrophils 1.80 - 7.70 K/uL 8.39 (H) 7.31 7.90 (H) Time Spent on Encounter: 6 - [...] 9:00 AM EDT Pharmacy Pharmacy Hematology Oncology [facility] [address] [place] [address] [facility], [facility] Hem/Onc [address] [place] [address] 10/31/2023 11:30 AM EDT PulmDiagnostic Pulmonary Function Lab, [facility] [address] [place] [address] [address], [address] [place] [address] 11/01/2023 2:30 PM EDT Cardiac Studies Cardiac Studies, [facility] [address] [place] [address] 11/14/2023 9:40 AM EDT Office Visit Family Practice [facility] [address] [place] [address] Toshia Reynaga DO [address] [place] [address] 12/21/2023 2:00 PM EDT Office Visit Cardiology, [facility] [address] [address] Huong Oseguera CRNP [address] [place] [address] 01/03/2024 11:15 AM EDT Office Visit Hematology/Oncology [facility] [place] [address] [facility] [place] [address] Zeeshan Choi MD [address] [facility] [place] [address] Health Maintenance Due Date Last Done Comments Pneumococcal Vaccine: 65+ Years (1 of 2 - PCV) 09/29/1941 Depression Screening 1947 DTaP,Tdap,and Td Vaccines (1 - Tdap) 09/29/1954 Zoster Vaccines (1 of 2) 09/29/1985 COVID-19 Vaccine (1 - 2022-24 season) 2023 Influenza Vaccine (FLU shot) (#1) 2023 CKD PHOS USE SMARTSET 82989 11/11/2023 11/10/2022 Albumin/Creatinine Ratio 05/11/2024 05/11/2023, 07/24 O2 ASSESSMENT COMPLETED IN PAST YEAR FOR COPD 09/18/2024 09/18/2023 CKD HGB USE SMARTSET 11748 10/10/202410/10, 10/11/2023, 09/25/2023, Additional history exists DXA [...] purpura documented in this encounter Care Teams Camp Maintenance Supervisor Relationship Specialty Start Date End Date Toshia Reynaga DO [address] [place] [address] PCP - General Family Medicine 12/07/22 documented as of this encounter
--- OUTSIDE RECORDS SUMMARY | 2023-12-06 23:33 | External Medical Summary | Summary of Care ---
Author Name Unknown Organization [facility] Address [address] [place] [address] Phone [phone] Care Team Providers Care Supervisor Adult Education Name Role Phone Toshia Reynaga DO Primary Care Provider [phone] Reason for Visit * Reason Onset Date Comments Medication Refill 10/11/2023 Encounter Details Date Type Department Care Team (Late st Contact Info) Description 10/11/2023 Refill Pulmonary Medicine, [facility] [address] [facility] [place] [address] Enrique Nam MD [address] [facility] [address] COPD, very severe (HCC) Allergies Active Allergy Reactions Criticality Noted Date Comments Lisinopril Other (Please comment) 05/06/2022 Burning in throat documented as of this encounter (statuses as of 10/12/2023) Medications Medication Sig Dispensed Refills Start Date [...] mouth daily. 90 Tablet 3 10/11/2023 Active Albuterol Sulfate HFA 108 (90 Base) MCG/ACT Inhalation Aerosol SolutionIndicatio ns:COPD, very severe (HCC) Inhale 2 Puffs by mouth every 4 hours as needed for Cough, Shortness of Breath or Wheezing. 20.1 g 12 05/16/2023 4 Discontinue d(Refill) Trelegy Ellipta 100-62.5-25 MCG/ACT Aerosol Powder Breath Activated (Fluticasone-Umec lidinium-Vilanter ol) Inhale 1 Puff by mouth in the morning. 60 Blister Dosing Unit 0 09/18/2023 4 Discontinue d(Refill) Hospital, Clinic, or Other Facility Administered Medication Ordered Dose Route Frequency Start Date End Date Status Albuterol Sulfate (Proventil) (2.5 MG/3ML) 0.083% inhalation solution 2.5 mgIndications:COPD, severity to be determined (HCC) 2.5 mg NEBULIZER ONCE PRN 02/17/2023 02/17/2024 Active documented as of this encounter (statuses as of 10/12/2023) Active Problems Problem Noted Date Diagnosed Date [...] as of this encounter (statuses as of 10/12/2023) Resolved Problems Problem Noted Date Diagnosed Date Resolved Date Chronic obstructive pulmonary disease 05/11/2023 06/08/2023 Overview: Per COPD GOLD Classification documented as of this encounter (statuses as of 10/12/2023) Immunizations No known immunizationsdocumented as of this [...] encounter Miscellaneous Notes * Telephone Encounter - Enrique Nma MD - 10/12/2023 2:56 PM EDT Signed Prescriptions: Disp Refills Albuterol Sulfate HFA 108 (90 Base) MCG/AC*54 g 3 Sig: Inhale 2 Puffs by mouth every 4 hours as needed for Cough, Shortness of Breath or Wheezing. Authorizing Provider: ENRIQUE NAMlemary Ellipta 100-62.5-25 MCG/ACT Aeroso*180 Bl*1 Sig: Inhale 1 Puff by mouth in the morning. Authorizing Provider: ENRIQUE NAM * Telephone Encounter - Alicia Thurman LPN - 10/11/2023 2:48 PM EDTPending Prescriptions: Disp Refills Albuterol Sulfate HFA 108 (90 Base) MCG/AC*54 g 3 Sig: Inhale 2 Puffs by mouth every 4 hours as needed for Cough, Shortness of Breath or Wheezing. Trelegy Vzwqbvu615-20.5-25 MCG/ACT Aeroso*180 Bl*1 Sig: Inhale 1 Puff by mouth in the morning. documented in this encounter Plan of Treatment Upcoming Encounters Date Type Department Care Team (Late st Contact Info) Description 10/18/2023 9:00 AM EDT Pharmacy Pharmacy Hematology Oncology [facility] [address] [place] [address] [facility] Hem/Onc [address] [place] [address] 10/31/2023 11:30 AM EDT PulmDiagnostic Pulmonary Function Lab, [facility] [address] [place] [address] West, [address] [place] [address] 11/01/2023 2:30 PM EDT Cardiac Studies Cardiac Studies, [facility] [address] [place] [address] 11/14/2023 9:40 AM EDT Office Visit Family Practice [facility] [address] [place] [address] Toshia Reynaga, [address] [place] [address] 12/21/2023 2:00 PM EDT Office Visit Cardiology, [facility] [address] [facility] [place] [address] Huong Oseguera CRNP [address] [place] [address] 01/03/2024 11:15 AM EDT Office [facility]ematology[facility] [id number] Zeeshan Choi MD [address] [place] [address] Health Maintenance Due Date Last Done Comments Pneumococcal Vaccine: 65+ Years (1 of 2 - PCV) 09/29/1941 Depression Screening 1947 DTaP,Tdap,and Td Vaccines (1 - Tdap) 09/29/1954 Zoster Vaccines (1 of 2) 09/29/1985 COVID-19 Vaccine (1 - 2022- season) 2023 Influenza Vaccine (FLU shot) (#1) 2023 CKD PHOS USE SMARTSET 60053 11/11/2023 11/10/2022 Albumin/Creatinine Ratio 05/11/2024 05/11/2023, 07/24 O2 ASSESSMENT COMPLETED IN PAST YEAR FOR COPD 09/18/2024 09/18/2023 CKD HGB USE SMARTSET 56197 10/10/202410/10, 10/11/2023, 09/25/2023, Additional history exists DXA [...] (HCC) Chronic airway obstruction, not elsewhere classified documented in this encounter Care Teams Supervisor Adult Education Relationship Specialty Start Date End Date Toshia Reynaga DO [address] [place] [address] PCP - General Family Medicine 12/07/22 documented as of this encounter
--- OUTSIDE RECORDS SUMMARY | 2023-12-06 23:33 | External Medical Summary | Summary of Care ---
Author Name Unknown Organization [facility] Address [address] [place] [address] Phone [phone] Care Team Providers Care Laminator Hand Name Role Phone Toshia Reynaga DO Primary Care Provider [phone] Reason for Visit * Reason Onset Date Comments Blood Pressure Check Blood Pressure Check 10/11/2023 Encounter Details Date Type Department Care Team (Latest Contact Info) Description 10/11/2023 10:15 AM EDT Cardiac Studies Cardiac Studies, [facility] [address] [place] [address] HTN, goal below 140/90* Allergies Active Allergy Reactions Criticality Noted Date [...] Sign Reading Time Taken Comments Blood Pressure 128/52 10/11/2023 10:13 AM EDT Pulse - - Temperature - - Respiratory Rate - - Oxygen Saturation - - Inhaled Oxygen Concentration - - Weight - - Height - - Body Mass Index - - documented in this encounter Progress Notes * Patti Perez, COT - 10/11/2023 10:10 AM EDT Edilma Kennedy presented for blood pressure check per provider orders. The blood pressure was obtained using the left arm in the sitting position using a adult cuff. The results were charted in Vital Signs. BP Readings from Last 3 Encounters: 10/11/23 128/52 10/04/23 98/38 09/18/23 116/58 BP 128/52 (BP Site: Left Arm, BP Position: Sitting, BP Cuff Size: Pediatric) Patient states her mouth is very dry and she feels like she cannot take a deep breath -- states shetook Trelegy approx 20 minutes ago and this has sometimes happened after taking this medication. denies headache, pressure in head, dizziness, lightheadedness, chest discomfort, focal neurological symptoms, change in vision, nose bleeds. Pt has been monitoring vitals at home: 10-05-2023 -- W: 101; BP: 109/52: P: 59 10-06-2023 -- W: 100; BP: 112/58; P: 63 10-07-2023 -- W: 101.4; BP: 109/47; P: 61 10-08-2023 -- W: 98; BP: 100/43; P: 59 10-09-2023 -- W: 100.4; BP: 102/52; P: 60 10-10-2023 -- W: 100; BP:101/52; P: 64 10-11-2023 -- W: 100; BP: 99/47; P: 56 States she is using the BP cuff that was included with her monitor. Pediatric cuff used for today'sin-office reading as regular adult cuff is too long for patient. Did patient take medications today? Yes -- approx 9 a.m. Patient was instructed to follow-up as per their next scheduled appt documented in this encounter Plan of Treatment Upcoming Encounters Date Type Department Care Team (Late st Contact Info) Description 10/31/2023 11:30 AM EDT [facility] [address] [place] [address] [address], [address] [place] [address] 11/01/2023 2:30 PM EDT [facility] [address] [place] [address] [address] 11/14/2023 9:40 AM EDT [facility] [address] [place] [address] Toshia Reynaga DO [address] [place] [address] 12/21/2023 2:00 PM EDT Office Visit Cardiology, [facility] [address] [place] [address] Huong Oseguera CRNP [address] [place] [address] 01/03/2024 11:15 AM EDT Office Visit Hematology/Oncology [facility] [address] [facility], [place] [address] Zeeshan Choi MD [address] [facility] [address] Scheduled Orders Name Type Priority Associated Diagnoses Orde r Schedule BLOOD PRESSURE Procedures Routine HTN, goal below 140/90 Ordered: 10/11/2023 Health Maintenance Due Date Last Done Comments Pneumococcal Vaccine: 65+ Years (1 of 2 - PCV) 09/29/1941 Depression Screening 1947 DTaP,Tdap,and Td Vaccines (1 - Tdap) 09/29/1954 Zoster Vaccines (1 of 2) 09/29/1985 COVID-19 Vaccine (1 - 2022- season) 2023 Influenza Vaccine (FLU shot) (#1) 2023 CKD PHOS USE SMARTSET 79503 11/11/2023 11/10/2022 Albumin/Creatinine Ratio 05/11/2024 05/11/2023, 07/24 O2 ASSESSMENT COMPLETED IN PAST YEAR FOR COPD 09/18/2024 09/18/2023 CKD HGB USE SMARTSET 76863 09/24/202409/24, 09/25/2023, 09/18/2023, Additional history exists DXA [...] encounter Visit Diagnoses Diagnosis HTN, goal below 140/90- Primary Unspecified essential hypertension documented in this encounter Care Teams Laminator Hand Relationship Specialty Start Date End Date Toshia Reynaga DO [address] [place] [address] PCP - General Family Medicine 12/07/22 documented as of this encounter
--- OUTSIDE RECORDS SUMMARY | 2023-12-06 23:33 | External Medical Summary | Summary of Care ---
Author Name Unknown Organization [facility] Address [address] [place] [address] Phone [phone] Care Team Providers Care Quality Systems Specialist Name Role Phone Toshia Reynaga DO Primary Care Provider [phone] Reason for Visit * Reason Onset Date Comments Follow Up 10/11/2023 Encounter Details Date Type Department Care Team (Late st Contact Info) Description 10/11/2023 Telephone Nehemiah Fowler [address] [place] [phone] Kizzy Badillo PA-C [address] [place] [address] Follow Up Allergies Active Allergy Reactions Criticality Noted Date Comments Lisinopril Other (Please comment) 05/06/2022 Burning in throat documented as of this encounter (statuses as of 10/16/2023) Medications Medication Sig Dispensed Refills Start Date [...] Additional Information Patient not taking.Reported on 10/04/2023 amLODIPine Besylate 5 MG Oral Tablet (Norvasc)Indicati [...] as of this encounter (statuses as of 10/16/2023) Active Problems Problem Noted Date Diagnosed Date [...] as of this encounter (statuses as of 10/16/2023) Resolved Problems Problem Noted Date Diagnosed Date Resolved Date Chronic obstructive pulmonary disease 05/11/2023 06/08/2023 Overview: Per COPD GOLD Classification documented as of this encounter (statuses as of 10/16/2023) Immunizations No known immunizationsdocumented as of this [...] encounter Miscellaneous Notes * Telephone Encounter - Lili Palacio CMA - 10/16/2023 4:00 PM EDT Spoke with patient by phone. Verbalized understanding and agreeable to plan of care. She plans to have repeat lab work completed on 10/17. She will continue to monitor daily weights and vitals several days/week. * Telephone Encounter - Kizzy Badillo PA-C - 10/11/2023 3:41 PM EDT Blood pressure and heart rates reviewed. Mild bradycardia, recommend to stop bisoprolol. Recommend repeat labs. May be hypovolemic. If kidney function worsened, will consider cutting back on furosemide. Continue to monitor blood pressure and heart rate a few times a week or if not feeling well. Monitor weight daily. documented in this encounter Plan of Treatment Upcoming Encounters Date Type Department Care Team (Late st Contact Info) Description 10/18/2023 9:00 AM EDT Pharmacy Pharmacy Hematology [facility]cology [facility] [address] [place] [address] [facility] Hem/Onc [facility] [place] [address] 10/31/2023 11:30 AM EDT PulmDiagnostic Pulmonary Function Lab, [facility] [address] [place] [address] [place], [address] [place] [address] 11/01/2023 2:30 PM EDT Cardiac Studies Cardiac Studies, [facility] [address] [place] [address] 11/14/2023 9:40 AM EDT Office Visit Family Practice [facility] [address] [place] [address] Toshia Reynaga DO [address] [place] [address] 12/21/2023 2:00 PM EDT Office Visit Cardiology, [facility] [address] [place] [address] Huong Oseguera CRNP [address] [place] [address] 01/03/2024 11:15 AM EDT Office [facility] [facility] [place] [address] [place] [id number] Zeeshan Choi MD [address] [place] [address] Scheduled Orders Name Type Priority Associated Diagnoses Orde r Schedule BASIC METABOLIC PANEL Lab Routine Chronic heart failure with preserved ejection fraction (HCC) Expected: 10/11/2023, Expires: 10/10/2024 Health Maintenance Due Date Last Done Comments Pneumococcal Vaccine: 65+ Years (1 of 2 - PCV) 09/29/1941 Depression Screening 1947 DTaP,Tdap,and Td Vaccines (1 - Tdap) 09/29/1954 Zoster Vaccines (1 of 2) 09/29/1985 COVID-19 Vaccine (1 - 2022-24 season) 2023 Influenza Vaccine (FLU shot) (#1) 2023 CKD PHOS USE SMARTSET 98698 11/11/2023 11/10/2022 Albumin/Creatinine Ratio 05/11/2024 05/11/2023, 07/24 O2 ASSESSMENT COMPLETED IN PAST YEAR FOR COPD 09/18/2024 09/18/2023 CKD HGB USE SMARTSET 39551 10/10/202410/10, 10/11/2023, 09/25/2023, Additional history exists DXA [...] failure with preserved ejection fraction (HCC)- Primary documented in this encounter Care Teams Quality Systems Specialist Relationship Specialty Start Date End Date Toshia Reynaga DO [address] [place] [address] PCP - General Family Medicine 12/07/22 documented as of this encounter
--- OUTSIDE RECORDS SUMMARY | 2023-12-06 23:33 | External Medical Summary | Summary of Care ---
Author Name Unknown Organization [facility] Address [address] [place] [address] Phone [phone] Care Team Providers Care Yarn Dumper Name Role Phone Toshia Reynaga DO Primary Care Provider [phone] Reason for Visit * Reason Onset Date Comments FYI 10/19/2023 Encounter Details Date Type Department Care Team (Late st Contact Info) Description 10/19/2023 Telephone Hematology/Oncology [place] [address] [facility] [place] [address] Zeeshan Choi MD [address] [facility] [place] [address] FYI Allergies Active Allergy Reactions Criticality Noted Date Comments Lisinopril Other (Please comment) 05/06/2022 Burning in throat documented as of this encounter (statuses as of 10/19/2023) Medications Medication Sig Dispensed Refills Start Date [...] as of this encounter (statuses as of 10/19/2023) Active Problems Problem Noted Date Diagnosed Date [...] as of this encounter (statuses as of 10/19/2023) Resolved Problems Problem Noted Date Diagnosed Date Resolved Date Chronic obstructive pulmonary disease 05/11/2023 06/08/2023 Overview: Per COPD GOLD Classification documented as of this encounter (statuses as of 10/19/2023) Immunizations No known immunizationsdocumented as of this encounter Social History Tobacco Use Types Packs/Day Years Used Date Smoking Tobacco: Former Cigarettes 0.3 5 1 974 - 6891 Passive Smoke Exposure: Never Smokeless Tobacco: Never [...] encounter Miscellaneous Notes * Telephone Encounter - Maude Suarez CPhT - 10/19/2023 1:02 PM EDT MEDICATION THERAPY MANAGEMENT AVATROMBOPAG TREATMENT PROGRESS NOTE Edilma Kennedy [id number] Patient Phone Numbers Communication: Spoke to Caller Treatment: Medication: Avatrombopag (Doptelet) Indication/Staging/Diagnosis 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 Gabriel Choi Caller: Son Incoming Request: Returning missed call from oral chemo clinic:Lab reminder call Action: Sent telephone encounter to pharmacist for follow-up - Additional Notes: Patient currently admitted @ [facility] due to having difficulty breathing. Son said as soon as she is discharged he will take her to [facility] to have lab work completed. Maude Suarez Furniture Repair Technician III [facility] Oral Chemotherapy [facility] 10/19/2023 1:05 PM documented in this encounter Plan of Treatment Upcoming Encounters Date Type Department Care Team (Late st Contact Info) Description 10/20/2023 9:00 AM EDT Pharmacy Pharmacy Hematology Oncology [facility] [address] [place] [address] [facility] [place] Hem/Onc [address] [place] [address] 10/31/2023 11:30 AM EDT PulmDiagnostic Pulmonary Function Lab, [facility] [address] [place] [address] [address], [address] [place] [address] 11/01/2023 2:30 PM EDT Cardiac Studies Cardiac Studies, [facility] [address] [place] [address] 11/14/2023 9:40 AM EDT Office Visit Family Practice [facility] [address] [place] [address] Toshia Reynaga DO [address] [place] [address] 12/21/2023 2:00 PM EDT Office Visit Cardiology, [facility] [address] [place] [address] Huong Oseguera CRNP [address] [place] [address] 01/03/2024 11:15 AM EDT Office Visit [facility]ematology[facility]On[facility] [address] [place] [phone] Zeeshan Choi MD [address] [facility] [place], [place] [address] Health Maintenance Due Date Last Done Comments Pneumococcal Vaccine: 65+ Years (1 of 2 - PCV) 09/29/1941 Depression Screening 1947 DTaP,Tdap,and Td Vaccines (1 - Tdap) 09/29/1954 Zoster Vaccines (1 of 2) 09/29/1985 COVID-19 Vaccine (1 - 2022-24 season) 2023 Influenza Vaccine (FLU shot) (#1) 2023 CKD PHOS USE SMARTSET 35692 11/11/2023 11/10/2022 Albumin/Creatinine Ratio 05/11/2024 05/11/2023, 07/24 O2 ASSESSMENT COMPLETED IN PAST YEAR FOR COPD 09/18/2024 09/18/2023 CKD HGB USE SMARTSET 25116 10/10/202410/10, 10/11/2023, 09/25/2023, Additional history exists DXA [...] purpura documented in this encounter Care Teams Yarn Dumper Relationship Specialty Start Date End Date Toshia Reynaga DO [address] [place] [address] PCP - General Family Medicine 12/07/22 documented as of this encounter
--- OUTSIDE RECORDS SUMMARY | 2023-12-06 23:33 | External Medical Summary ---
Author Name Unknown Address Unknown Organization [facility] [address] [place] [address] Laboratory Report Ordering Provider Test Date Status RAMU VASQUES 10/11/2023 10:32:14 Final Observation Date Value Abnormality Reference (Units ) Status WBC, Total 10/11/2023 10:32:14 11.07 Above high normal 4 .00-10.80 (K/uL) Final RBC 10/11/2023 10:32:14 3.77 3.85-5.15 (M/uL) Final Hemoglobin 10/11/2023 10:32:14 11.5 Below low normal 12 .0-15.3 (g/dL) Final HCT 10/11/2023 10:32:14 36.6 36.0-45.2 (%) Final MCV 10/11/2023 10:32:14 97.1 81.5-97.5 (fL) Final MCH 10/11/2023 10:32:14 30.5 27.0-34.0 (pg) Final MCHC 10/11/2023 10:32:14 31.4 32.0-36.0 (g/dL) Final RDW 10/11/2023 10:32:14 16.4 11.5-15.5 (%) Final Platelets 10/11/2023 10:32:14 154 140-400 (K /uL) Final MPV 10/11/2023 10:32:14 13.0 6.6-11.1 ( fL) Final Performing Location [facility] [address] [place] [address]
--- OUTSIDE RECORDS SUMMARY | 2023-12-06 23:33 | External Medical Summary | Summary of Care ---
Author Name Unknown Organization [facility] Address [address] [place] [address] Phone [phone] Care Team Providers Care Personal Care Attendant Name Role Phone Ronnell Toshiatheodore Paul DO Primary Care Provider [phone] Reason for Visit * Reason Onset Date Comments Oxygen Assessment 10/09/2023 NPO Encounter Details Date Type Department Care Team (Late st Contact Info) Description 10/09/2023 Telephone Pulmonary Medicine, [facility] [address] [facility] [place] [address] Enrique Fernandez MD [address] [facility] [address] Oxygen Assessment (NPO) Allergies Active Allergy Reactions Criticality Noted Date [...] Polyethylene Glycol 3350 17 GM/SCOOP Oral Powder (MiraLax)Indications :Constipation, unspecified constipation type Take by mouth 17 g as needed for Constipation. Dissolve one heaping tablespoon in 8 ounces of water or juice. 507 g 3 04/25/2022 Active Acetaminophen 500 MG Oral Tablet (Tylenol) Take 1 Tablet by mouth every 6 hours as needed. 0 Active Losartan Potassium 100 MG Oral Tablet (Cozaar)Indications: HTN, goal below 140/90 Take 1 Tablet by mouth in the morning. 90 Tablet 2 08/02/2023 Active Spacer/Aero-Holding Chambers Device Use with inhaler. 1 Each 0 09/12/2023 Active Albuterol Sulfate (2.5 MG/3ML) 0.083% Inhalation Nebulization Solution (Proventil) Inhale 1 Vial via nebulizer every 4 hours as needed for Wheezing. 3 mL 1 09/12/2023 Active Additional Information Patient not taking.Reported on 10/04/2023 Hospital, Clinic, or Other Facility Administered Medication [...] Miscellaneous Notes * Telephone Encounter - Enrique Fernandez MD - 10/16/2023 7:33 AM EDT Your recent nocturnal pulse oximetry study showed episodes of significant drops in oxygen levels through the night. We would recommend use of oxygen therapy while sleeping at night. Prescription will be submitted to a [facility], who will be contacting you for set up home oxygen for nighttime use. Please contact the office with any additional questions. Sincerely Dr. Fernandez * Telephone Encounter - Alicia Thurman LPN - 10/09/2023 1:01 PM EDT NPO has been scanned into the chart. Please review and advise. documented in this encounter Plan of Treatment Upcoming Encounters Date Type Department Care Team (Late st Contact Info) Description 10/18/2023 9:00 AM EDT Pharmacy Pharmacy Hematology Oncology [facility] [address] [place] [address] [facility] [place], [facility] Hem/Onc [address] [place] [address] 10/31/2023 11:30 AM EDT PulmDiagnostic Pulmonary Function Lab, [facility] 132 [facility] [place] [address] [address], [address] [facility] [place] [address] 11/01/2023 2:30 PM EDT Cardiac Studies Cardiac Studies, [facility] [address] [place] [address] 11/14/2023 9:40 AM EDT Office Visit Family Practice [facility] [address] [place] [address] Toshia Reynaga DO [address] [place] [address] 12/21/2023 2:00 PM EDT Office Visit Cardiology, [facility] [address] [place] [address] Huong Oseguera CRNP [address] [place] [address] 01/03/2024 11:15 AM EDT Office Visit Hematology/Oncology [facility] [place] [phone] Zeeshan Choi MD [address] [facility] [address] Health Maintenance Due Date Last Done Comments Pneumococcal Vaccine: 65+ Years (1 of 2 - PCV) 09/29/1941 Depression Screening 1947 DTaP,Tdap,and Td Vaccines (1 - Tdap) 09/29/1954 Zoster Vaccines (1 of 2) 09/29/1985 COVID-19 Vaccine (1 - 2022- season) 2023 Influenza Vaccine (FLU shot) (#1) 2023 CKD PHOS USE SMARTSET 93046 11/11/2023 11/10/2022 Albumin/Creatinine Ratio 05/11/2024 05/11/2023, 07/24 O2 ASSESSMENT COMPLETED IN PAST YEAR FOR COPD 09/18/2024 09/18/2023 CKD HGB USE SMARTSET 66085 10/10/202410/10, 10/11/2023, 09/25/2023, Additional history exists DXA [...] of this encounter Visit Diagnoses Diagnosis Chronic respiratory failure with hypoxia (HCC)- Primary Chronic respiratory failure documented in this encounter Care Teams Personal Care Attendant Relationship Specialty Start Date End Date Toshia Reynaga DO [address] [place] [address] PCP - General Family Medicine 12/07/22 documented as of this encounter
--- OUTSIDE RECORDS SUMMARY | 2023-12-06 23:33 | External Medical Summary ---
Author Name Unknown Address Unknown Organization [facility] [address] [place] [address] Laboratory Report Ordering Provider Test Date Status RAMU VASQUES 10/11/2023 10:32:14 Final Observation Date Value Abnormality Reference (Units ) Status SYNC LEUKOCYTES IN BLOOD BY AUTOMATED COUNT 10/11/2023 10:32:14 11.07 Above high normal 4.00-10.80 (K/uL) Final Segs 10/11/2023 10:32:14 71.4 40.0-75.0 (%) Final Lymphs % 10/11/2023 10:32:14 18.4 18.0-42.0 (%) Final Monos 10/11/2023 10:32:14 7.4 1.0-11.0 (%) Final Eosinophils 10/11/2023 10:32:14 2.4 0.0-6.0 (%) Final Basos 10/11/2023 10:32:14 0.4 0.0-2.0 (%) Final Absolute Segs 10/11/2023 10:32:14 7.90 Above high normal 1.80-7.70 (K/uL) Final Lymphs, absolute 10/11/2023 10:32:14 2.04 1.00-4.80 (K/ul) Final Monos, Abs 10/11/2023 10:32:14 0.82 0.00-1.10 (K/uL) Final Eos, Abs 10/11/2023 10:32:14 0.27 0.00-0.70 (K/uL) Final Basos, Abs 10/11/2023 10:32:14 0.04 0.00-0.20 (K/uL) Final Performing Location [facility] [address] [place] [address]
--- OUTSIDE RECORDS SUMMARY | 2023-12-06 23:33 | External Medical Summary | Summary of Care ---
Author Name Unknown Organization [facility] Address [address] [place] [address] Phone [phone] Care Team Providers Care Pin Drafting Machine Operator Name Role Phone Toshia Reynaga DO Primary Care Provider [phone] Reason for Visit * Reason Onset Date Comments Blood Pressure Check Blood Pressure Check 10/11/2023 Encounter Details Date Type Department Care Team (Latest Contact Info) Description 10/11/2023 10:15 AM EDT Cardiac Studies Cardiac Studies, [facility] [address] [place] [address] HTN, goal below 140/90* Allergies Active Allergy [...] Polyethylene Glycol 3350 17 GM/SCOOP Oral Powder (MiraLax)Indicat ions:Constipatio n, unspecified constipation type Take by mouth 17 g as needed for Constipation. Dissolve one heaping tablespoon in 8 ounces of water or juice. 507 g 3 2 Active Albuterol Sulfate HFA 108 (90 Base) MCG/ACT Inhalation Aerosol SolutionIndicati ons:COPD, very severe (HCC) Inhale 2 Puffs by mouth every 4 hours as needed for Cough, Shortness of Breath or Wheezing. 20.1 g 12 3 Active Acetaminophen 500 MG Oral Tablet (Tylenol) Take 1 Tablet by mouth every 6 hours as needed. 0 Active Losartan Potassium 100 MG Oral Tablet (Cozaar)Indicati ons:HTN, goal below 140/90 Take 1 Tablet by mouth in the morning. 90 Tablet 2 4 Active Spacer/Aero-Hold ing Chambers Device Use with inhaler. 1 Each 0 4 Active Albuterol Sulfate (2.5 MG/3ML) 0.083% Inhalation Nebulization Solution (Proventil) Inhale 1 Vial via nebulizer every 4 hours as needed for Wheezing. 3 mL 1 4 Active Additional Information Patient not taking.Reported on 10/04/2023 Trelegy Ellipta 100-62.5-25 MCG/ACT Aerosol Powder Breath Activated (Fluticasone-Ume clidinium-Vilant thalia) Inhale 1 Puff by mouth in the morning. 60 Blister Dosing Unit 0 4 10/18/19 24 Active Bisoprolol Fumarate 5 MG Oral Tablet (Zebeta)Indicati ons:HTN, goal below 140/90 TAKE 1 TABLET EVERY MORNING 90 Tablet 1 3 10/11/19 24 Discontinued Furosemide 40 MG Oral Tablet (Lasix) Take 1 Tablet by mouth daily. 90 Tablet 3 4 10/11/19 24 Discontinued(Ref ill) amLODIPine Besylate 5 MG Oral Tablet (Norvasc)Indicat ions:HTN, goal below 140/90 Take 1 Tablet by mouth in the morning. 30 Tablet 11 4 10/11/19 24 Discontinued(Ref ill) Hospital, Clinic, or Other Facility Administered Medication [...] in this encounter Progress Notes * Patti Perez COT - 10/11/2023 10:10 AM EDT Edilma [...] next scheduled appt documented in this encounter Miscellaneous Notes * Addendum Note - Kizzy Badillo PA-C - 10/11/2023 2:08 PM EDTAddended by: KIZZY BADILLO on: 10/11/2023 02:08 PM Modules accepted: Orders documented in this encounter Plan of Treatment Upcoming Encounters Date Type Department Care Team (Late st Contact Info) Description 10/18/2023 9:00 AM EDT Pharmacy Pharmacy Hematology Oncology [facility] [address] [facility] [place] [address] [facility], [facility] Hem/Onc [address] [facility] [place] [address] 10/31/2023 11:30 AM EDT PulmDiagnostic Pulmonary Function Lab, [facility] [address] [place] [address] [address], [address] [facility] [place] [address] 11/01/2023 2:30 PM EDT Cardiac Studies Cardiac Studies, [facility] 132 [facility] [place] [address] 11/14/2023 9:40 AM EDT Office Visit Family Practice [facility] [address] [facility] [place] [address] Toshia Reynaga DO [address] [place] [address] 12/21/2023 2:00 PM EDT Office Visit Cardiology, [facility] 132 [facility] [place] [address] Huong Oseguera CRNP 132 [facility] [place] [address] 01/03/2024 11:15 AM EDT Office Visit Hematology/Oncology [facility] [place] [address] [place], [place] [phone] Zeeshan Choi MD 200 [facility] [place] [address] Scheduled Orders Name Type Priority Associated Diagnoses Orde r Schedule BLOOD PRESSURE Procedures Routine HTN, goal below 140/90 Ordered: 10/11/2023 Health Maintenance Due Date Last Done Comments Pneumococcal Vaccine: 65+ Years (1 of 2 - PCV) 09/29/1941 Depression Screening 1947 DTaP,Tdap,and Td Vaccines (1 - Tdap) 09/29/1954 Zoster Vaccines (1 of 2) 09/29/1985 COVID-19 Vaccine (2022-24 season) 2023 Influenza Vaccine (FLU shot) (#1) 2023 CKD PHOS USE SMARTSET 63801 11/11/2023 11/10/2022 Albumin/Creatinine Ratio 05/11/2024 05/11/2023, 07/24 O2 ASSESSMENT COMPLETED IN PAST YEAR FOR COPD 09/18/2024 09/18/2023 CKD HGB USE SMARTSET 06827 10/10/202410/10, 10/11/2023, 09/25/2023, Additional history exists DXA [...] hypertension documented in this encounter Care Teams Pin Drafting Machine Operator Relationship Specialty Start Date End Date Toshia Reynaga DO [address] [place] [address] PCP - General Family Medicine 12/07/22 documented as of this encounter
--- OUTSIDE RECORDS SUMMARY | 2023-12-06 23:33 | External Medical Summary | Summary of Care ---
Author Name Unknown Organization [facility] Address [address] [place] [address] Phone [phone] Care Team Providers Care Senior Professional Services Consultant Name Role Phone Toshia Reynaga DO Primary Care Provider [phone] Reason for Visit * Reason Comments Medication Management Encounter Details Date Type Department Care Team (Late st Contact Info) Description 10/04/2023 9:00 AM EDT Pharmacy Pharmacy Hematology Oncology [facility] [address] [place], [place] [id number] [facility] [place] Hem/Onc [address] [place], [place] [id number] Chronic ITP (idiopathic thrombocytopenia) ([facility])* Allergies Active Allergy Reactions Criticality Noted Date [...] as of this encounter Progress Notes * Lee Ann Yepez, JACE - 10/04/2023 9:00 AM EDT MEDICATION THERAPY MANAGEMENT AVATROMBOPAG TREATMENT PROGRESS NOTE Edilma Kennedy [phone] Patient Phone Numbers Son: Christian Communication: Spoke to: Patient Treatment: Medication: Avatrombopag (Doptelet) Indication/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 Gabriel Choi Patient forgot about going for labs today, stated that she will have to do it next week when she goes back. Encouraged her to please try to get labs done this week if she can. Patient wanted to go next week when she is there for a BP check. JACE Dawn Billiard Table Repairer Pharmacy Hematology Oncology [facility] Medication Therapy Disease Management [facility] 10/04/23 2:03 PM Time Spent on Encounter: 6 - 10 minutes Encounter Group: Hematology Encounter Interventions Item Category: Oral Chemotherapy Other: Avatrombopag Problem/Rationale: Safety: Needs additional monitoring - Medication Requires monitoring Pharmacist Intervention(s): Lab work requested Magnitude of Intervention: Monitoring with no interventions (Level 0) documented in this encounter Plan of Treatment Upcoming Encounters Date Type Department Care Team (Late st Contact Info) Description 10/11/2023 9:00 AM EDT Pharmacy Pharmacy Hematology Oncology [facility] [address] [place] [address] [facility] [place] Hem/[place]c [facility] [address] 10/11/2023 10:15 AM EDT Cardiac Studies Cardiac Studies, [facility] [address] [place] [address] 10/11/2023 10:30 AM EDT Laboratory Laboratory, [facility] [address] [place] [phone] [facility] [address] [place] [address] 11/01/2023 2:30 PM EDT Cardiac Studies Cardiac Studies, [facility] [address] [place] [address] 11/14/2023 9:40 AM EDT Office Visit Family Practice [facility] [address] [place] [address] Toshia Reynaga DO [address] [place] [address] 12/21/2023 2:00 PM EDT Office Visit Cardiology, [facility] [address] [place] [address] Huong Oseguera CRNP [address] [place] [address] 01/03/2024 11:15 AM EDT Office Visit Hematology/Oncology [facility] [phone] Zeeshan Choi [facility] [address] [facility] [place] [address] Health Maintenance Due Date Last Done Comments Pneumococcal Vaccine: 65+ Years (1 of 2 - PCV) 09/29/1941 Depression Screening 1947 DTaP,Tdap,and Td Vaccines (1 - Tdap) 09/29/1954 Zoster Vaccines (1 of 2) 09/29/1985 COVID-19 Vaccine (1 - 2022-24 season) 2023 Influenza Vaccine (FLU shot) (#1) 2023 CKD PHOS USE SMARTSET 47604 11/11/2023 11/10/2022 Albumin/Creatinine Ratio 05/11/2024 05/11/2023, 07/24 O2 ASSESSMENT COMPLETED IN PAST YEAR FOR COPD 09/18/2024 09/18/2023 CKD HGB USE SMARTSET 93843 09/24/202409/24, 09/25/2023, 09/18/2023, Additional history exists DXA [...] documented in this encounter Care Teams Senior Professional Services Consultant Relationship Specialty Start Date End Date Toshia Reynaga DO [address] [place] [address] PCP - General Family Medicine 12/07/22 documented as of this encounter
--- OUTSIDE RECORDS SUMMARY | 2023-12-06 23:33 | External Medical Summary | Summary of Care ---
Author Name Unknown Organization [facility] Address [address] [place] [address] Phone [phone] Care Team Providers Care Hands And Dial Inspector Name Role Phone Toshia Reynaga DO Primary Care Provider [phone] Reason for Visit * Reason Comments Outpatient Testing Encounter Details Date Type Department Care Team (Late st Contact Info) Description 10/11/2023 10:30 AM EDT Laboratory Laboratory, [facility] [address] [place] [address] [facility] [address] [place] [address] Chronic ITP (idiopathic thrombocytopenia) ([facility]) Allergies Active Allergy Reactions Criticality Noted Date [...] 11:30 AM EDT PulmDiagnostic Pulmonary Function Lab, [facility] [address] [place] [address] [address], [address] [place] [address] 11/01/2023 2:30 PM EDT [facility] [address] [place] [address] 11/14/2023 9:40 AM EDT Office Visit Family Practice [facility] [address] [place] [address] Toshia Reynaga DO [address] [place] [address] 12/21/2023 2:00 PM EDT Office Visit Cardiology, [facility] [address] [place] [address] Huong Oseguera CRNP [address] [place] [address] 01/03/2024 11:15 AM EDT Office Visit Hematology/Oncology [facility] 200 [facility] [place] [address] Zeeshan Choi MD [facility] [address] Health Maintenance Due Date Last Done Comments Pneumococcal Vaccine: 65+ Years (1 of 2 - PCV) 09/29/1941 Depression Screening 1947 DTaP,Tdap,and Td Vaccines (1 - Tdap) 09/29/1954 Zoster Vaccines (1 of 2) 09/29/1985 COVID-19 Vaccine (1 - 2022- season) 2023 Influenza Vaccine (FLU shot) (#1) 2023 CKD PHOS USE SMARTSET 67877 11/11/2023 11/10/2022 Albumin/Creatinine Ratio 05/11/2024 05/11/2023, 07/24 O2 ASSESSMENT COMPLETED IN PAST YEAR FOR COPD 09/18/2024 09/18/2023 CKD HGB USE SMARTSET 55542 09/24/202410/10, 10/11/2023, 09/25/2023, Additional history exists DXA Scan [...] Priority Date/Time Associated Diagnosis Comments DIFFERENTIAL, AUTOMATED STAT 10/11/2023 10:32 AM EDT Chronic ITP (idiopathic thrombocytopenia) (HCC) CBC STAT 10/11/2023 10:32 AM EDT Chronic ITP (idiopathic thrombocytopenia) (HCC) CBC STAT 10/11/2023 10:32 AM EDT Chronic ITP (idiopathic thrombocytopenia) (HCC) documented in this encounter Results * (ABNORMAL) DIFFERENTIAL, AUTOMATED (10/11/2023 10:32 AM EDT) WBC 11.07(H) 4.00 - 10.80 K/uL 10/11/2023 10:45 AM EDT [facility] [place] [facility]10 Neutrophils % 71.4 40.0 - 75.0 % 10/11/2023 10:45 AM EDT [facility] [place] 57[facility]10 Lymphocytes % 18.4 18.0 - 42.0 % 10/11/2023 10:45 AM EDT [facility] [place] 57[facility]10 Monocytes % 7.4 1.0 - 11.0 % 10/11/2023 10:45 AM EDT [facility] [place] 57[facility]10 Eosinophils % 2.4 0.0 - 6.0 % 10/11/2023 10:45 AM EDT [facility] [place] 57[facility]10 Basophils % 0.4 0.0 - 2.0 % 10/11/2023 10:45 AM EDT [facility] [place] [facility]10 Absolute Neutrophils 7.90(H) 1.80 - 7.70 K/uL 10/11/2023 10:45 AM EDT [facility] [place] [facility]10 Absolute Lymphocytes 2.04 1.00 - 4.80 K/ul 10/11/2023 10:45 AM EDT [facility] [place] [facility]10 Absolute Monocytes 0.82 0.00 - 1.10 K/uL 10/11/2023 10:45 AM EDT [facility] [place] 5710 Absolute Eosinophils 0.27 0.00 - 0.70 K/uL 10/11/2023 10:45 AM EDT [facility] [place] 5710 Absolute Basophils 0.04 0.00 - 0.20 K/uL 10/11/2023 10:45 AM EDT [facility] [place] 5710 Blood Venous blood specimen / Unknown Venipuncture / Unknown 10/11/2023 10:32 AM EDT 10/11/2023 10:32 AM EDT Zeeshan Choi MD LAB BLOOD ORDERABLES [facility] [place] [address] [address] [place] [address] * (ABNORMAL) CBC (10/11/2023 10:32 AM EDT) WBC 11.07(H) 4.00 - 10.80 K/uL 10/11/2023 10:45 AM EDT [facility] [place] [address] RBC 3.77 3.85 - 5.15 M/uL 10/11/2023 10:45 AM EDT [facility] [place] 5710 HGB 11.5(L) 12.0 - 15.3 g/dL 10/11/2023 10:45 AM EDT [facility] [place] [address] HCT 36.6 36.0 - 45.2 % 10/11/2023 10:45 AM EDT LABORATORY [address] MCV 97.1 81.5 - 97.5 fL 10/11/2023 10:45 AM EDT LABORATORY [address] MCH 30.5 27.0 - 34.0 pg 10/11/2023 10:45 AM EDT [facility] [place] 5710 MCHC 31.4 32.0 - 36.0 g/dL 10/11/2023 10:45 AM EDT [facility] [place] [facility] RDW 16.4 11.5 - 15.5 % 10/11/2023 10:45 AM EDT LABORATORY [address] PLT 154 140 - 400 K/uL 10/11/2023 10:45 AM EDT [facility] [place] [facility]10 MPV 13.0 6.6 - 11.1 fL 10/11/2023 10:45 AM EDT [facility] [place] [facility]10 Blood Venous blood specimen / Unknown Venipuncture / Unknown 10/11/2023 10:32 AM EDT 10/11/2023 10:32 AM EDT Zeeshan Choi MD LAB BLOOD ORDERABLES [facility] [place] [facility]-10 [address] [place] [address] documented in this encounter Visit Diagnoses Diagnosis Chronic ITP (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
--- OUTSIDE RECORDS SUMMARY | 2023-12-06 23:33 | External Medical Summary ---
Author Name Unknown Address Unknown Organization [id number]:[facility] - [address] [place] [facility] [place] [address] Laboratory Report Ordering Provider Test Date Status RONAK LYNCH 10/25/2023 14:50:48 Final Observation Date Value Abnormality Reference (Units ) Status BUN 10/25/2023 14:50:48 49 Above high normal 6-20 (mg/dL) Final Creatinine 10/25/2023 14:50:48 1.3 Above high normal 0.5-1.0 (mg/dL) Final Glomerular filtration rate/1.73 sq M.predicted [Volume Rate/Area] in Serum, Plasma or Blood by Creatinine-based formula (CKD-EPI) 10/25/2023 14:50:48 39 Below low normal >=60 (mL/min) Final eGFR is calculated based on the CKD-EPI 2020 equation Sodium 10/25/2023 14:50:48 143 135-146 (m mol/L) Final Potassium 10/25/2023 14:50:48 5.5 Above high normal 3. 5-5.1 (mmol/L) Final Cl 10/25/2023 14:50:48 99 98-107 (mm ol/L) Final CO2 10/25/2023 14:50:48 35 Above high normal 22 -32 (mmol/L) Final Anion gap 10/25/2023 14:50:48 9 7-15 (mmol /L) Final Glucose 10/25/2023 14:50:48 95 70-120 (mg /dL) Final Albumin 10/25/2023 14:50:48 3.8 3.8-5.0 (g /dL) Final AST (Aspartate aminotransferase) 10/25/2023 14:50:48 31 10-35 (U/L) Fin al Result may be falsely elevat ed due to hemolysis. Alk Phos 10/25/2023 14:50:48 45 35-130 (U/ L) Final Bilirubin, Total 10/25/2023 14:50:48 1.2 <=1 .2 (mg/dL) Final Calcium 10/25/2023 14:50:48 9.8 8.4-10.2 ( mg/dL) Final Protein 10/25/2023 14:50:48 6.1 6.0-8.3 (g /dL) Final ALT (Alanine aminotransferase) 10/25/2023 14:50:48 24 10-35 (U/L) Final Performing Location [facility] - [facility] [address]. [facility] [address]
--- OUTSIDE RECORDS SUMMARY | 2023-12-06 23:33 | External Medical Summary | Summary of Care ---
Author Name Unknown Organization [facility] Address [address] [place] [address] Phone [phone] Care Team Providers Care Electronic Equipment Repairmen Name Role Phone Toshia Reynaga DO Primary Care Provider [phone] Reason for Visit * Reason Comments Medication Management Encounter Details Date Type Department Care Team (Late st Contact Info) Description 10/18/2023 9:00 AM EDT Pharmacy Pharmacy Hematology [facility] [address], [place] [id number] [facility], [facility] Hem/Onc [address] [place], [place] [id number] Chronic ITP (idiopathic thrombocytopenia) (HCC)* Allergies Active Allergy Reactions Criticality Noted Date Comments Lisinopril Other (Please comment) 05/06/2022 Burning in throat documented as of this encounter (statuses as of 10/18/2023) Medications Medication Sig Dispensed Refills Start Date [...] as of this encounter (statuses as of 10/18/2023) Active Problems Problem Noted Date Diagnosed Date [...] as of this encounter (statuses as of 10/18/2023) Resolved Problems Problem Noted Date Diagnosed Date Resolved Date Chronic obstructive pulmonary disease 05/11/2023 06/08/2023 Overview: Per COPD GOLD Classification documented as of this encounter (statuses as of 10/18/2023) Immunizations No known immunizationsdocumented as of this [...] this encounter Progress Notes * Lee Ann Yepez OSA - 10/18/2023 9:00 AM EDT MEDICATION THERAPY MANAGEMENT AVATROMBOPAG TREATMENT PROGRESS NOTE Edilma Kennedy [phone] Patient Phone Numbers Son: Christian Communication: Left message requesting pt to obtain lab work Treatment: Medication: Avatrombopag (Doptelet) Indication/Staging/Diagnosis Code: ITP/D69.3 Dose: 40mg daily (DI 11/03/22) Administration: with food Start Date: November 2019 Primary Rigging Worker/Oncologist: Dr. Gabriel Choi Left message today for patient to please complete weekly labs. JACE Dawn Comsec Manager Pharmacy Hematology Oncology Oral [facility]otherapy Clinic Medication Therapy Disease Management [facility] 10/18/23 9:44 AM Time Spent on Encounter: 6 - 10 [...] 9:00 AM EDT Pharmacy Pharmacy Hematology [facility] [address] [place] [address] [facility], [facility] Hem/Onc [address] [place] [address] 10/31/2023 11:30 AM EDT PulmDiagnostic Pulmonary Function Lab, [facility] [address] [place] [address] [address], [address] [place] [address] 11/01/2023 2:30 PM EDT Cardiac Studies Cardiac Studies, [facility] [address] [place] [address] 11/14/2023 9:40 AM EDT Office Visit Family Practice [facility] [address] [place] [address] Toshia Reynaga DO [address] [place] [address] 12/21/2023 2:00 PM EDT Office Visit Cardiology, [facility] [address] [place] [address] Huong Oseguera CRNP [address] [place] [address] 01/03/2024 11:15 AM EDT Office Visit Hematology/Oncology [facility] [address] [facility] [address] [place] [phone] Zeeshan Choi MD 200 [facility] [place], [place] [address] Health Maintenance Due Date Last Done Comments Pneumococcal Vaccine: 65+ Years (1 of 2 - PCV) 09/29/1941 Depression Screening 1947 DTaP,Tdap,and Td Vaccines (1 - Tdap) 09/29/1954 Zoster Vaccines (1 of 2) 09/29/1985 COVID-19 Vaccine (1 - 2022-24 season) 2023 Influenza Vaccine (FLU shot) (#1) 2023 CKD PHOS USE SMARTSET 09672 11/11/2023 11/10/2022 Albumin/Creatinine Ratio 05/11/2024 05/11/2023, 07/24 O2 ASSESSMENT COMPLETED IN PAST YEAR FOR COPD 09/18/2024 09/18/2023 CKD HGB USE SMARTSET 63801 10/10/202410/10, 10/11/2023, 09/25/2023, Additional history exists DXA [...] purpura documented in this encounter Care Teams Electronic Equipment Repairmen Relationship Specialty Start Date End Date Toshia Reynaga DO [address] [place] [address] PCP - General Family Medicine 12/07/22 documented as of this encounter
--- OUTSIDE RECORDS SUMMARY | 2023-12-06 23:33 | External Medical Summary | Summary of Care ---
Author Name Unknown Organization [facility] Address [address] [place] [address] Phone [phone] Care Team Providers Care Tax Assistant Name Role Phone Toshia Reynaga DO Primary Care Provider [phone] Reason for Visit * Reason Onset Date Comments Medication Refill 10/11/2023 Encounter Details Date Type Department Care Team (Late st Contact Info) Description 10/11/2023 Refill Cardiology, [facility] 132 [facility] [place] [address] Kizzy Badillo PA-C [facility] [address] HTN, goal below 140/90 Allergies Active Allergy [...] Blister Dosing Unit 0 09/18/2023 4 Active amLODIPine Besylate 5 MG Oral Tablet (Norvasc)Indicati ons:HTN, goal below 140/90 Take 1 Tablet by mouth in the morning. 90 Tablet 3 10/11/2023 Active Furosemide 40 MG Oral Tablet (Lasix) Take 1 Tablet by mouth daily. 90 Tablet 3 10/11/2023 Active Furosemide 40 [...] Notes * Telephone Encounter - Swathi Ward RPh - 10/11/2023 1:30 PM EDT Patient is switching pharmacies. Reissued balance of refills on current prescription(s) to center well Thank you, Swathi A Ed, PharmD. Clinical Pharmacist [facility] ([facility]) (formerly Telepharmacy) 10/11/2023, 1:30 PM documented in this encounter Plan of Treatment Upcoming Encounters Date Type Department Care Team (Late st Contact Info) Description 10/18/2023 9:00 AM EDT Pharmacy Pharmacy Hematology Oncology [facility] [address] [place] [address] [facility], [facility] Hem/Onc [address] [place] [address] 10/31/2023 11:30 AM EDT PulmDiagnostic Pulmonary Function Lab, [facility] [address] [place] [address] West, [address] [place] [address] 11/01/2023 2:30 PM EDT Cardiac Studies Cardiac Studies, [facility] [address] [place] [address] 11/14/2023 9:40 AM EDT Office Visit Family Practice [facility] [address] [place] [address] Toshia Reynaga DO [address] [place] [address] 12/21/2023 2:00 PM EDT Office Visit Cardiology, [facility] [address] [place] [address] Huong Oseguera CRNP [address] [place] [address] 01/03/2024 11:15 AM EDT Office Visit Hematology/Oncology [facility] [address] Zeeshan Choi MD 200 [facility] [place], [place] [address] Health Maintenance Due Date Last Done Comments Pneumococcal Vaccine: 65+ Years (1 of 2 - PCV) 09/29/1941 Depression Screening 1947 DTaP,Tdap,and Td Vaccines (1 - Tdap) 09/29/1954 Zoster Vaccines (1 of 2) 09/29/1985 COVID-19 Vaccine (1 - 2022-24 season) 2023 Influenza Vaccine (FLU shot) (#1) 2023 CKD PHOS USE SMARTSET 17952 11/11/2023 11/10/2022 Albumin/Creatinine Ratio 05/11/2024 05/11/2023, 07/24 O2 ASSESSMENT COMPLETED IN PAST YEAR FOR COPD 09/18/2024 09/18/2023 CKD HGB USE SMARTSET 58391 10/10/202410/10, 10/11/2023, 09/25/2023, Additional history exists DXA [...] hypertension documented in this encounter Care Teams Tax Assistant Relationship Specialty Start Date End Date Toshia Reynaga DO [address] [place] [address] PCP - General Family Medicine 12/07/22 documented as of this encounter
--- OUTSIDE RECORDS SUMMARY | 2023-12-06 23:33 | External Medical Summary ---
Author Name Unknown Address Unknown Organization K0G:[facility] [place] [facility] - [address] [place] [address] Laboratory Report Ordering Provider Test Date Status RONAK LYNCH 10/25/2023 14:50:48 Final Observation Date Value Abnormality Reference (Units ) Status Nucleated erythrocytes/100 leukocytes [Ratio] in Blood by Automated count 10/25/2023 14:50:48 Final Ovalocytes [Presence] in Blood by Light microscopy 10/25/2023 14:50:48 Moderate Abnormal None Seen Final Performing Location [facility] [place] [facility] 0 - [address] [place] [address]
--- OUTSIDE RECORDS SUMMARY | 2023-12-06 23:33 | External Medical Summary | Summary of Care ---
Author Name Unknown Organization [facility] Address [address] [place] [address] Phone [phone] Care Team Providers Care Ict Business Analyst Name Role Phone Toshia Reynaga DO Primary Care Provider [phone] Encounter Details Date Type Department Care Team (Late st Contact Info) Description 10/24/2023 Orders Only Family Practice [facility] [address] [place] [address] Toshia Reynaga DO [address] [place] [address] Allergies Active Allergy Reactions Criticality Noted Date Comments Lisinopril Other (Please comment) 05/06/2022 Burning in throat documented as of this encounter (statuses as of 10/24/2023) Medications Medication Sig Dispensed Refills Start Date [...] as of this encounter (statuses as of 10/24/2023) Active Problems Problem Noted Date Diagnosed Date [...] as of this encounter (statuses as of 10/24/2023) Resolved Problems Problem Noted Date Diagnosed Date Resolved Date Chronic obstructive pulmonary disease 05/11/2023 06/08/2023 Overview: Per COPD GOLD Classification documented as of this encounter (statuses as of 10/24/2023) Immunizations No known immunizationsdocumented as of this encounter Social History Tobacco Use Types Packs/Day Years Used Date Smoking Tobacco: Former Cigarettes 0.3 5 1 974 - 1282 Passive Smoke Exposure: Never Smokeless Tobacco: Never [...] 9:00 AM EDT Pharmacy Pharmacy Hematology Oncology [facility] [address] [place] [address] [facility], [facility] Hem/Onc [address] [place] [address] 10/25/2023 2:00 PM EDT Office Visit Family Practice [facility] [address] [place] [address] Toshia Reynaga DO [address] [place] [address] 10/31/2023 11:30 AM EDT PulmDiagnostic Pulmonary Function Lab, [facility] [address] [place] [address] West, [address]ft [address] [place] [address] 11/01/2023 2:30 PM EDT Cardiac Studies Cardiac Studies, [facility] [address] [place] [address] 11/14/2023 9:40 AM EDT Office Visit [facility] [place] [address] Toshia Reynaga DO [address] [place] [address] 12/21/2023 2:00 PM EDT Office Visit Cardiology, [facility] [address] [place] [address] Huong Oseguera CRNP [address] [place] [address] 01/03/2024 11:15 AM EDT Office Visit Hematology/Oncology [facility] [address] [place] [phone] Zeeshan Choi MD 200 [facility], [place] [address] Health Maintenance Due Date Last Done Comments Pneumococcal Vaccine: 65+ Years (1 of 2 - PCV) 09/29/1941 Depression Screening 1947 DTaP,Tdap,and Td Vaccines (1 - Tdap) 09/29/1954 Zoster Vaccines (1 of 2) 09/29/1985 COVID-19 Vaccine (1 - season) 2023 CKD PHOS USE SMARTSET 37788 11/11/2023 11/10/2022 Influenza Vaccine (FLU shot) (Season Ended) 2024 Albumin/Creatinine Ratio 05/11/2024 05/11/2023, 07/24 O2 ASSESSMENT COMPLETED IN PAST YEAR FOR COPD 09/18/2024 09/18/2023 CKD HGB USE SMARTSET 19202 10/10/202410/23, 10/11/2023, 10/11/2023, Additional history exists DXA Scan [...] Priority Date/Time Associated Diagnosis Comments CHEMISTRY-OUTSIDE Routine 10/24/2023 documented in this encounter Results * (ABNORMAL) CHEMISTRY-OUTSIDE (10/24/2023) Not all results display below - see scan for full detail SEE SCAN: CBC OUTSIDE LAB (SEE SCANNED REPORT) CREATININE-OUTSID E [...] LAB OUTSIDE LAB (SEE SCANNED REPORT) HEMOGLOBIN, [id number] LAB OUTSIDE LAB (SEE SCANNED REPORT) PHOSPHORUS-OUTSID E LAB OUTSIDE LAB (SEE SCANNED REPORT) PTH-OUTSIDE LAB OUTS [facility] (SEE SCANNED REPORT) MICROALBUMIN RATIO-OUTSIDE LAB OUTSIDE LA B (SEE SCANNED REPORT) PROTEIN, UA-OUTSIDE LAB OUTSIDE LAB (SEE SCANNED REPORT) HGB 11.3(L) 12.0 - 16.0 GM/DL OUTSIDE LAB (SEE SCANNED REPORT) 10/24/2023 [facility] OUTSIDE LAB (SEE SCANNED REPORT) documented in this encounter Care Teams Ict Business Analyst Relationship Specialty Start Date End Date Toshia Reynaga DO [address] [place] [address] PCP - General Family Medicine 12/07/22 documented as of this encounter
--- OUTSIDE RECORDS SUMMARY | 2023-12-06 23:34 | External Medical Summary | Summary of Care ---
Author Name Unknown Organization [facility] Address [address] [place] [address] Phone [phone] Care Team Providers Care Panama Hat Blocker Name Role Phone Ronnell Toshiatheodore Paul DO Primary Care Provider [phone] Reason for Visit * Reason Onset Date Comments Administrative Follow-Up 09/19/2023 Noc ox order Encounter Details Date Type Department Care Team (Late st Contact Info) Description 09/19/2023 Telephone Pulmonary Medicine, [facility] 132 [facility] [place] [address] Enrique Fernandez MD [address] [place] [address] Administrative Follow-Up (Noc ox order) Allergies Active Allergy Reactions Criticality Noted Date Comments Lisinopril Other (Please comment) 05/06/2022 Burning in throat documented as of this encounter (statuses as of 09/19/2023) Medications Medication Sig Dispensed Refills Start Date [...] the morning. 90 Tablet 2 08/02/2023 Active Doptelet 20 MG Oral Tablet (Avatrombopag Maleate)Indication s:Chronic ITP (idiopathic thrombocytopenia) (HCC) Take 2 tablets (40mg) by mouth in morning. 60 Tablet 5 08/22/2023 Active Additional Information Patient not taking.Reported on 09/15/2023 Spacer/Aero-Holdin g Chambers Device Use with inhaler. [...] Blister Dosing Unit 0 09/18/2023 4 Active Hospital, Clinic, or Other Facility Administered Medication Ordered Dose Route Frequency Start Date End Date Status Albuterol Sulfate (Proventil) (2.5 MG/3ML) 0.083% inhalation solution 2.5 mgIndications:COPD, severity to be determined (HCC) 2.5 mg NEBULIZER ONCE PRN 02/17/2023 02/17/2024 Active documented as of this encounter (statuses as of 09/19/2023) Active Problems Problem Noted Date Diagnosed Date [...] as of this encounter (statuses as of 09/19/2023) Resolved Problems Problem Noted Date Diagnosed Date Resolved Date Chronic obstructive pulmonary disease 05/11/2023 06/08/2023 Overview: Per COPD GOLD Classification documented as of this encounter (statuses as of 09/19/2023) Immunizations No known immunizationsdocumented as of this [...] encounter Miscellaneous Notes * Telephone Encounter - Gwen Hernandez LPN - 09/19/2023 11:06 AM EST [facility] documented in this encounter Plan of Treatment Upcoming Encounters Date Type Department Care Team (Late st Contact Info) Description 09/25/2023 9:00 AM EST Pharmacy Pharmacy Hematology Oncology [facility] [address] [place] [address] [facility] Hem/Onc [address] [place] [address] 09/25/2023 11:00 AM EST Laboratory Laboratory [facility] [place] [address] [place] [phone] [place], [facility] [address] [place] [address] 10/04/2023 10:30 AM EDT Office Visit Cardiology, [facility] [address] [place] [address] Kizzy Badillo PA-C [address] [place] [address] [place] [address] 11/01/2023 2:30 PM EDT Cardiac Studies Cardiac Studies, [facility] [address] [place] [address] 11/14/2023 9:40 AM EDT Office Visit Family Practice [facility] [address] [place] [address] Toshia Reynaga DO [address] [place] [address] 12/06/2023 11:20 AM EDT Office Visit Dermatology [address] [place] [address] Toshia Mattson PA-C [address] [place] [address] [place] [address] 12/21/2023 2:00 PM EDT Office Visit Cardiology, [facility] [address] [place] [address] Huong Oseguera CRNP [address] [place] [address] 01/03/2024 11:15 AM EDT Office Visit Hematology/Oncology [facility] [address] [place] [phone] Zeeshan Choi MD 200 [facility] [place] [address] Health Maintenance Due Date Last Done Comments Pneumococcal Vaccine: 65+ Years (1 of 2 - PCV) 09/29/1941 Depression Screening 1947 DTaP,Tdap,and Td Vaccines (1 - Tdap) 09/29/1954 Zoster Vaccines (1 of 2) 09/29/1985 COVID-19 Vaccine (1 - 2022- season) 2023 Influenza Vaccine (FLU shot) (#1) 2023 CKD PHOS USE SMARTSET 43296 11/11/2023 11/10/2022 Albumin/Creatinine Ratio 05/11/2024 05/11/2023, 07/24 CKD HGB USE SMARTSET 99759 09/18/202409/18, 09/18/2023, 09/12/2023, Additional history exists O2 ASSESSMENT COMPLETED IN PAST YEAR FOR COPD 09/18/2024 09/18/2023 DXA Scan 12/07/2032 12/07/2022 Alpha-1 Antitrypsin Completed [...] filedocumented as of this encounter Care Teams Panama Hat Blocker Relationship Specialty Start Date End Date Toshia Reynaga DO [address] [place] [address] PCP - General Family Medicine 12/07/22 documented as of this encounter
--- OUTSIDE RECORDS SUMMARY | 2023-12-06 23:34 | External Medical Summary | Summary of Care ---
Author Name Unknown Organization [facility] Address [address] [place] [address] Phone [phone] Care Team Providers Care Bed Control Specialist Name Role Phone Toshia Reynaga DO Primary Care Provider [phone] Encounter Details Date Type Department Care Team (Late st Contact Info) Description 09/25/2023 Orders Only Hematology/On[facility] [address] [facility] [place] [address] Zeeshan Choi MD [address] [place] [address] Chronic ITP (idiopathic thrombocytopenia) ([facility])* Allergies Active Allergy Reactions Criticality Noted Date Comments Lisinopril Other (Please comment) 05/06/2022 Burning in throat documented as of this encounter (statuses as of 09/25/2023) Medications Medication Sig Dispensed Refills Start Date [...] as of this encounter (statuses as of 09/25/2023) Active Problems Problem Noted Date Diagnosed Date [...] as of this encounter (statuses as of 09/25/2023) Resolved Problems Problem Noted Date Diagnosed Date Resolved Date Chronic obstructive pulmonary disease 05/11/2023 06/08/2023 Overview: Per COPD GOLD Classification documented as of this encounter (statuses as of 09/25/2023) Immunizations No known immunizationsdocumented as of this [...] 9:00 AM EDT Pharmacy Pharmacy Hematology Oncology [facility] [address] [place] [address] [facility], [facility] Hem/Onc [address] [place] [address] 10/04/2023 10:30 AM EDT [facility] 132 [facility] [place] [address] Kizzy Badillo PA-C 400 [facility] [place] [id number] 11/01/2023 2:30 PM EDT Cardiac Studies Cardiac Studies, [facility] [address] [place] [address] 11/14/2023 9:40 AM EDT Office Visit Family Practice [facility] [address] [place] [address] Toshia Reynaga DO [address] [place] [address] 12/21/2023 2:00 PM EDT Office Visit [facility]iology, [facility] [place] [address] Huong Oseguera CRNP 132 [facility] [place] [address] 01/03/2024 11:15 AM EDT Office Visit Hematology/Oncology [facility] [address] [facility] [place] [address] Zeeshan Choi MD [address] [facility] [place] [address] Scheduled Orders Name Type Priority Associated Diagnoses Orde r Schedule CBC WITH WBC DIFFERENTIAL Lab STAT Chronic ITP (idiopathic thrombocytopenia) (HCC) Every Week for 52 Occurrences starting 09/25/2023 until 09/24/2024 Health Maintenance Due Date Last Done Comments Pneumococcal Vaccine: 65+ Years (1 of 2 - PCV) 09/29/1941 Depression Screening 1947 DTaP,Tdap,and Td Vaccines (1 - Tdap) 09/29/1954 Zoster Vaccines (1 of 2) 09/29/1985 COVID-19 Vaccine (1 - 2022-24 season) 2023 Influenza Vaccine (FLU shot) (#1) 2023 CKD PHOS USE SMARTSET 37557 11/11/2023 11/10/2022 Albumin/Creatinine Ratio 05/11/2024 05/11/2023, 07/24 O2 ASSESSMENT COMPLETED IN PAST YEAR FOR COPD 09/18/2024 09/18/2023 CKD HGB USE SMARTSET 08200 09/24/202409/24, 09/25/2023, 09/18/2023, Additional history exists DXA [...] purpura documented in this encounter Care Teams Bed Control Specialist Relationship Specialty Start Date End Date Toshia Reynaga DO [address] [place] [address] PCP - General Family Medicine 12/07/22 documented as of this encounter
--- OUTSIDE RECORDS SUMMARY | 2023-12-06 23:34 | External Medical Summary | Summary of Care ---
Author Name Unknown Organization [facility] Address [address] [place] [address] Phone [phone] Care Team Providers Care Box Chipper Name Role Phone Toshia Reynaga DO Primary Care Provider [phone] Reason for Visit * Reason Onset Date Comments Test Results 09/19/2023 Encounter Details Date Type Department Care Team (Late st Contact Info) Description 09/19/2023 Telephone Cardiology Nehemiah Dao [address] [place] [address] Kizzy Badillo PA-C 400 [facility] [place] [address] Test Results Allergies Active Allergy [...] 9:00 AM EST Pharmacy Pharmacy Hematology Oncology [facility] [place] [address] [place] [address] [facility], [facility] Hem/Onc [address] [place] [address] 09/25/2023 11:00 AM EST Laboratory Laboratory [address] [address] [place] [phone] [facility] Lab Scenery [address] [place] [address] 10/04/2023 10:30 AM EDT Office Visit Cardiology, [facility] 132 [facility] [place] [address] Kizzy Badillo PA-C [address] [place] [address] [place] [address] 11/01/2023 2:30 PM EDT Cardiac Studies Cardiac Studies, [facility] 132 [facility] [place] [address] 11/14/2023 9:40 AM EDT Office Visit Family Practice [facility] 132 [facility] [place] [address] Toshia Reynaga DO 132 [facility] [place] [address] 12/06/2023 11:20 AM EDT Office Visit Dermatology [address] [place] [address] Toshia Mattson PA-C [address] [place] [address] [place] [address] 12/21/2023 2:00 PM EDT Office Visit Cardiology, [facility] [place] [address] Huong Oseguera CRNP [address] [place] [address] 01/03/2024 11:15 AM EDT [facility] [place] 200 [facility] [place] [phone] Zeeshan Choi MD 200 [facility] [place] [address] Health Maintenance Due Date Last Done Comments Pneumococcal Vaccine: 65+ Years (1 of 2 - PCV) 09/29/1941 Depression Screening 1947 DTaP,Tdap,and Td Vaccines (1 - Tdap) 09/29/1954 Zoster Vaccines (1 of 2) 09/29/1985 COVID-19 Vaccine (1 - 2022-24 season) 2023 Influenza Vaccine (FLU shot) (#1) 2023 CKD PHOS USE SMARTSET 99343 11/11/2023 11/10/2022 Albumin/Creatinine Ratio 05/11/2024 05/11/2023, 07/24 CKD HGB USE SMARTSET 52850 09/18/202409/18, 09/18/2023, 09/12/2023, Additional history exists O2 [...] as of this encounter Care Teams Box Chipper Relationship Specialty Start Date End Date Toshia Reynaga DO [address] [place] [address] PCP - General Family Medicine 12/07/22 documented as of this encounter
--- OUTSIDE RECORDS SUMMARY | 2023-12-06 23:34 | External Medical Summary | Summary of Care ---
Author Name Unknown Organization [facility] Address [address] [place] [address] Phone [phone] Care Team Providers Care Supervisor Buffing And Pasting Name Role Phone Toshia Reynaga DO Primary Care Provider [phone] Reason for Visit * Reason Onset Date Comments Test Results 09/14/2023 Encounter Details Date Type Department Care Team (Late st Contact Info) Description 09/14/2023 Telephone Family Practice [facility] [address] [place] [address] Toshia Reynaga DO [address] [place] [address] Test Results Allergies Active Allergy Reactions Criticality Noted Date Comments Lisinopril Other (Please comment) 05/06/2022 Burning in throat documented as of this encounter (statuses as of 09/21/2023) Medications Medication Sig Dispensed Refills Start Date [...] for Wheezing. 3 mL 1 09/12/2023 Active Spiriva Respimat 2.5 MCG/ACT Inhalation Aerosol Solution (Tiotropium Liberty Monohydrate)Indica tions:COPD, very severe (HCC) Inhale 2 Puffs by mouth in the morning. 4 g 3 08/15/2023 4 Discontinue d(Adverse reaction) Doptelet 20 MG Oral Tablet (Avatrombopag Maleate)Indication s:Chronic ITP (idiopathic thrombocytopenia) (HCC) Take 2 tablets (40mg) by mouth in morning. 60 Tablet 5 08/22/2023 4 Discontinue d(Patient preference/ discontinua tion) Hospital, Clinic, or Other Facility Administered Medication Ordered Dose Route Frequency Start Date End Date Status Albuterol Sulfate (Proventil) (2.5 MG/3ML) 0.083% inhalation solution 2.5 mgIndications:COPD, severity to be determined (HCC) 2.5 mg NEBULIZER ONCE PRN 02/17/2023 02/17/2024 Active documented as of this encounter (statuses as of 09/21/2023) Active Problems Problem Noted Date Diagnosed Date [...] as of this encounter (statuses as of 09/21/2023) Resolved Problems Problem Noted Date Diagnosed Date Resolved Date Chronic obstructive pulmonary disease 05/11/2023 06/08/2023 Overview: Per COPD GOLD Classification documented as of this encounter (statuses as of 09/21/2023) Immunizations No known immunizationsdocumented as of this [...] Telephone Encounter - Toshia Reynaga DO - 09/19/2023 3:03 PM EST She saw them yesterday - message did not get to her in time * Telephone Encounter - Zohra Fernandez LPN - 09/19/2023 2:42 PM EST I do not see an upcoming Pulmonary apt for her., is she to have an apt with them? * Telephone Encounter - Toshia Reynaga DO - 09/14/2023 2:37 PM EST Noted Please have pt take spiriva and spacer to pulmonary visit to see if they can help her with taking Thank you * Telephone Encounter - Jazmyn Tucker LPN - 09/14/2023 1:44 PM EST Patient called. Given message. Verbalized understanding. She is feeling pretty good today. She did get the spacer and the nebulizer. She is going to use the nebulizer. She is not going to use the spiriva. She can't work it. She did cough up a little bit of yellow mucous. * Telephone Encounter - Toshia Reynaga DO - 09/14/2023 1:05 PM EST Please call pt Reviewed labs Please see how feeling Also ask if contacted about nebulizer and if was able to get spacer for inhaler administration BNP - remains elevated - pt recent hospitalization for copd/heart failure. To remain on lasix and has cardio follow up Monday. Anemia and elevated platelets - sent to hematology to review. Will await additional input. CKD - will monitor - ensure to avoid all nsaids Mild elevation WBC - likely from recent steroids that were given in hospital. Thank you documented in this encounter Plan of Treatment Upcoming Encounters Date Type Department Care Team (Late st Contact Info) Description 09/25/2023 9:00 AM EST Pharmacy Pharmacy Hematology Oncology [facility] [address] [place] [address] [facility], [facility] Hem/Onc [address] [place] [address] 09/25/2023 11:00 AM EST Laboratory Laboratory [place] [address] [place] [phone] [place] [facility] [address] [place] [address] 10/04/2023 10:30 AM EDT Office Visit Cardiology, [facility] [address] [place] [address] Kizzy Badillo PA-C [address] [place] [address] [place] [address] 11/01/2023 2:30 PM EDT Cardiac Studies Cardiac Studies, [facility] [place] [address] 11/14/2023 9:40 AM EDT Office Visit Family Practice [facility] [address] [place] [address] Toshia Reynaga DO [address] [place] [address] 12/06/2023 11:20 AM EDT Office Visit Dermatology [address] [place] [address] Toshia Mattson PA-C [address] [place] [address] [place] [address] 12/21/2023 2:00 PM EDT Office Visit Cardiology, [facility] [place] [address] Huong Oseguera CRNP [address] [place] [address] 01/03/2024 11:15 AM EDT Office Visit Hematology/Oncology [facility] [address] [place] [phone] Zeeshan Choi MD [address] [place] [address] Health Maintenance Due Date Last Done Comments Pneumococcal Vaccine: 65+ Years (1 of 2 - PCV) 09/29/1941 Depression Screening 1947 DTaP,Tdap,and Td Vaccines (1 - Tdap) 09/29/1954 Zoster Vaccines (1 of 2) 09/29/1985 COVID-19 Vaccine (1 - 2022- season) 2023 Influenza Vaccine (FLU shot) (#1) 2023 CKD PHOS USE SMARTSET 58578 11/11/2023 11/10/2022 Albumin/Creatinine Ratio 05/11/2024 05/11/2023, 07/24 CKD HGB USE SMARTSET 16910 09/18/202409/18, 09/18/2023, 09/12/2023, Additional history exists O2 [...] filedocumented as of this encounter Care Teams Supervisor Buffing And Pasting Relationship Specialty Start Date End Date Toshia Reynaga DO [address] [place] [address] PCP - General Family Medicine 12/07/22 documented as of this encounter
--- OUTSIDE RECORDS SUMMARY | 2023-12-06 23:34 | External Medical Summary | Summary of Care ---
Author Name Unknown Organization [facility] Address [address] [place] [address] Phone [phone] Care Team Providers Care Labor Economist Name Role Phone Toshia Reynaga DO Primary Care Provider [phone] Reason for Visit * Reason Comments Outpatient Testing Encounter Details Date Type Department Care Team (Late st Contact Info) Description 09/25/2023 11:00 AM EST Laboratory Laboratory [facility] [address] [place] [address] [facility] Scen[address] [place] [address] Chronic ITP (idiopathic thrombocytopenia) ([facility]) Allergies Active Allergy Reactions Criticality Noted [...] 10/04/2023 10:30 AM EDT Office Visit Cardiology, [facility] [address] [place] [address] Kizzy Badillo PA-C [address] [place] [address] [place] [address] 11/01/2023 2:30 PM EDT [facility] [address] [place] [address] 11/14/2023 9:40 AM EDT Office Visit Family Practice [facility] [address] [place] [address] Toshia Reynaga DO [address] [place] [address] 12/21/2023 2:00 PM EDT Office Visit Cardiology, [facility] [address] [place] [address] Huong Oseguera CRNP [address] [place] [address] 01/03/2024 11:15 AM EDT Office Visit Hematology/Oncology [facility] [address] [facility] [place] [address] Zeeshan Choi MD [address] [facility] [place] [address] Pending Results Name Type Priority Associated Diagnoses Date /Time CBC WITH WBC DIFFERENTIAL Lab STAT Chronic ITP (idiopathic thrombocytopenia) ([facility]) 09/25/2023 10:54 AM EST CBC Lab STAT Chronic ITP (idiopathic thrombocytopenia) ([facility]) 09/25/2023 10:54 AM EST DIFFERENTIAL, AUTOMATED Lab STAT Chronic ITP (idiopathic thrombocytopenia) ([facility]) 09/25/2023 10:54 AM EST Health Maintenance Due Date Last Done Comments Pneumococcal Vaccine: 65+ Years (1 of 2 - PCV) 09/29/1941 Depression Screening 1947 DTaP,Tdap,and Td Vaccines (1 - Tdap) 09/29/1954 Zoster Vaccines (1 of 2) 09/29/1985 COVID-19 Vaccine (1 - 2022- season) 2023 Influenza Vaccine (FLU shot) (#1) 2023 CKD PHOS USE SMARTSET 42895 11/11/2023 11/10/2022 Albumin/Creatinine Ratio 05/11/2024 05/11/2023, 07/24 CKD HGB USE SMARTSET 87980 09/18/202409/18, 09/18/2023, 09/12/2023, Additional history exists O2 [...] purpura documented in this encounter Care Teams Labor Economist Relationship Specialty Start Date End Date Toshia Reynaga DO 132 [place] [address] PCP - General Family Medicine 12/07/22 documented as of this encounter
--- OUTSIDE RECORDS SUMMARY | 2023-12-06 23:34 | External Medical Summary | Summary of Care ---
Author Name Unknown Organization [facility] Address [address] [place] [address] Phone [phone] Care Team Providers Care Biofuels Engineering Manager Name Role Phone Toshia Reynaga DO Primary Care Provider [phone] Reason for Visit * Reason Comments Outpatient Testing Encounter Details Date Type Department Care Team (Late st Contact Info) Description 09/18/2023 4:50 PM EST Laboratory Laboratory, [facility] 132 [place] [address] [facility] [address] [place] [address] Chronic ITP (idiopathic thrombocytopenia) ([facility]); Chronic heart failure with preserved ejection fraction ([facility]) Allergies Active Allergy Reactions Criticality Noted Date Comments Lisinopril Other (Please comment) 05/06/2022 Burning in throat documented as of this encounter (statuses as of 09/18/2023) Medications Medication Sig Dispensed Refills Start Date [...] as of this encounter (statuses as of 09/18/2023) Active Problems Problem Noted Date Diagnosed Date [...] as of this encounter (statuses as of 09/18/2023) Resolved Problems Problem Noted Date Diagnosed Date Resolved Date Chronic obstructive pulmonary disease 05/11/2023 06/08/2023 Overview: Per COPD GOLD Classification documented as of this encounter (statuses as of 09/18/2023) Immunizations No known immunizationsdocumented as of this [...] Team (Late st Contact Info) Description 09/19/2023 9:00 AM [facility] Pharmacy Pharmacy Hematology Oncology [facility] [address] [place] [address] [facility], [facility] Hem/Onc [address] [place] [address] 10/04/2023 10:30 AM EDT Office Visit Cardiology, [facility] [address] [place] [address] Kizzy Badillo PA-C [address] [place] [address] [place] [address] 11/01/2023 2:30 PM EDT Cardiac Studies Cardiac Studies, [facility] [place] [address] 11/14/2023 9:40 AM EDT Office Visit Family Practice [facility] [address] [place] [address] Toshia Reynaga DO [address] [place] [address] 12/06/2023 11:20 AM EDT Office Visit Dermatology [address] [place] [address] Toshia Mattson PA-C [address] [place] [address] [place] [address] 12/21/2023 2:00 PM EDT Office Visit Cardiology, [facility] [address] [place] [address] Huong Oseguera CRNP [address] [place] [address] 01/03/2024 11:15 AM EDT Office Visit Hematology/Oncology [facility] [address] [place] [phone] Zeeshan Choi MD 200 [facility] [place] [address] Pending Results Name Type Priority Associated Diagnoses Date /Time BASIC METABOLIC PANEL Lab Routine Chronic heart failure with preserved ejection fraction (HCC) 09/18/2023 3:51 PM EST Health Maintenance Due Date Last Done Comments Pneumococcal Vaccine: 65+ Years (1 of 2 - PCV) 09/29/1941 Depression Screening 1947 DTaP,Tdap,and Td Vaccines (1 - Tdap) 09/29/1954 Zoster Vaccines (1 of 2) 09/29/1985 COVID-19 Vaccine (1 - 2022-24 season) 2023 Influenza Vaccine (FLU shot) (#1) 2023 CKD PHOS USE SMARTSET 74286 11/11/2023 11/10/2022 Albumin/Creatinine Ratio 05/11/2024 05/11/2023, 07/24 CKD HGB USE SMARTSET 00614 09/12/202409/18, 09/18/2023, 09/12/2023, Additional history exists O2 ASSESSMENT [...] Date/Time Associated Diagnosis Comments DIFFERENTIAL, AUTOMATED STAT 09/18/2023 3:51 PM EST Chronic ITP (idiopathic thrombocytopenia) (HCC) CBC STAT 09/18/2023 3:51 PM EST Chronic ITP (idiopathic thrombocytopenia) (HCC) CBC STAT 09/18/2023 3:51 PM EST Chronic ITP (idiopathic thrombocytopenia) (HCC) documented in this encounter Results * (ABNORMAL) DIFFERENTIAL, AUTOMATED (09/18/2023 3:51 PM EST) WBC 11.39(H) 4.00 - 10.80 K/uL 09/18/2023 3:58 PM EST [facility] Neutrophils % 73.7 40.0 - 75.0 % 09/18/2023 3:58 PM EST [facility] Lymphocytes % 16.1(L) 18.0 - 42.0 % 09/18/2023 3:58 PM EST [facility] Monocytes % 7.0 1.0 - 11.0 % 09/18/2023 3:58 PM EST [facility] Eosinophils % 2.6 0.0 - 6.0 % 09/18/2023 3:58 PM EST [facility] Basophils % 0.6 0.0 - 2.0 % 09/18/2023 3:58 PM EST [facility] Absolute Neutrophils 8.39(H) 1.80 - 7.70 K/uL 09/18/2023 3:58 PM EST [facility] Absolute Lymphocytes 1.83 1.00 - 4.80 K/ul 09/18/2023 3:58 PM EST [facility] Absolute Monocytes 0.80 0.00 - 1.10 K/uL 09/18/2023 3:58 PM EST [facility] Absolute Eosinophils 0.30 0.00 - 0.70 K/uL 09/18/2023 3:58 PM EST [facility] Absolute Basophils 0.07 0.00 - 0.20 K/uL 09/18/2023 3:58 PM EST [facility] Blood Venous blood specimen / Unknown Venipuncture / Unknown 09/18/2023 3:51 PM EST 09/18/2023 3:51 PM EST Zeeshan Choi MD LAB BLOOD ORDERABLES [facility] [place] [address] * (ABNORMAL) CBC (09/18/2023 3:51 PM EST) [facility] WBC 11.39(H) 4.00 - 10.80 K/uL 09/18/2023 3:58 PM EST [facility] RBC 3.03 3.85 - 5.15 M/uL 09/18/2023 3:58 PM EST [facility] HGB 9.3(L) 12.0 - 15.3 g/dL 09/18/2023 3:58 PM EST [facility] HCT 29.4(L) 36.0 - 45.2 % 09/18/2023 3:58 PM EST [facility] MCV 97.0 81.5 - 97.5 fL 09/18/2023 3:58 PM EST [facility] MCH 30.7 27.0 - 34.0 pg 09/18/2023 3:58 PM EST [facility] MCHC 31.6 32.0 - 36.0 g/dL 09/18/2023 3:58 PM EST [facility] RDW 15.9 11.5 - 15.5 % 09/18/2023 3:58 PM EST [facility] PLT 584(H) 140 - 400 K/uL 09/18/2023 3:58 PM EST [facility] MPV 10.5 6.6 - 11.1 fL 09/18/2023 3:58 PM EST [facility] Blood Venous blood specimen / Unknown Venipuncture / Unknown 09/18/2023 3:51 PM EST 09/18/2023 3:51 PM EST Zeeshan Choi MD LAB BLOOD ORDERABLES [facility] [address] [place] [address] documented in this encounter Visit Diagnoses Diagnosis Chronic ITP (idiopathic thrombocytopenia) (HCC) Immune thrombocytopenic purpura Chronic heart failure with preserved ejection fraction (HCC) documented in this encounter Care Teams Biofuels Engineering Manager Relationship Specialty Start Date End Date Toshia Reynaga DO [address] [place] [address] PCP - General Family Medicine 12/07/22 documented as of this encounter
--- OUTSIDE RECORDS SUMMARY | 2023-12-06 23:34 | External Medical Summary ---
Author Name Unknown Address Unknown Organization [facility] [place] [address] Laboratory Report Ordering Provider Test Date Status RAMU VASQUES 09/25/2023 10:54:56 Final Observation Date Value Abnormality Reference (Units ) Status SYNC LEUKOCYTES IN BLOOD BY AUTOMATED COUNT 09/25/2023 10:54:56 9.82 4.00-10.80 (K/uL) Final Segs 09/25/2023 10:54:56 74.5 40.0-75.0 (%) Final Lymphs % 09/25/2023 10:54:56 15.7 Below low normal 18.0-42.0 (%) Final Monos 09/25/2023 10:54:56 6.7 1.0-11.0 (%) Final Eosinophils 09/25/2023 10:54:56 2.2 0.0-6.0 (%) Final Basos 09/25/2023 10:54:56 0.9 0.0-2.0 (%) Final Absolute Segs 09/25/2023 10:54:56 7.31 1.80-7.70 (K/uL) Final Lymphs, absolute 09/25/2023 10:54:56 1.54 1.00-4.80 (K/ul) Final Monos, Abs 09/25/2023 10:54:56 0.66 0.00-1.10 (K/uL) Final Eos, Abs 09/25/2023 10:54:56 0.22 0.00-0.70 (K/uL) Final Basos, Abs 09/25/2023 10:54:56 0.09 0.00-0.20 (K/uL) Final Performing Location [facility] [place] [address]
--- OUTSIDE RECORDS SUMMARY | 2023-12-06 23:34 | External Medical Summary | Summary of Care ---
Author Name Unknown Organization [facility] Address [address] [place] [address] Phone [phone] Care Team Providers Care Spray I Painter Name Role Phone Toshia Reynaga DO Primary Care Provider [phone] Reason for Visit * Reason Comments Medication Management Encounter Details Date Type Department Care Team (Late st Contact Info) Description 09/25/2023 9:00 AM [facility] Pharmacy Pharmacy Hematology Oncology [facility] [address], [place] [phone] [facility] Hem/Onc [address] [place], [place] [phone] Chronic ITP (idiopathic thrombocytopenia) ([facility])* Allergies Active Allergy Reactions Criticality Noted [...] this encounter Progress Notes * Winter Casiano, [facility] - 09/25/2023 11:56 AM EST MEDICATION THERAPY MANAGEMENT AVATROMBOPAG TREATMENT PROGRESS NOTE Edilma Kennedy [phone] Patient Phone Numbers Son: Christian Communication: Spoke to: Patient and Son Treatment: Medication: Avatrombopag (Doptelet) Indication/Staging/Diagnosis Code: ITP/D69.3 Dose: 40mg daily (DI 11/03/22) Administration: with food Start Date: November 2019 Primary Coordinator Of Rehabilitation Services/Oncologist: Dr. Gabriel Choi Additional therapy: Rutiximab x 2 Dose adjustment / medication hold: 09/14/23-09/24/23: avatrombopag held due to thrombocytosis (PLT 919K) 09/25/23: resume avatrombopag at 20mg daily Interval History: Pt admitted to [facility] 05/23/22 for bleeding and PLT < 10K and transferred to [facility] 05/24/22 and discharged 06/18/22 Per OV 03/09/23, lab monitoring extended to monthly Admitted to [facility] 09/01/23-09/06/23 for CHF/COPD exacerbation - avatrombopag continued during admission despite PLT 718K 09/01/23 Changes to medication list since last visit? No Assessment and plan: PLT declining to goal (50-200K) Hgb low but improving. Will monitor closely All other labs stable Per discussion with Dr. Choi via TT, pt to resume avatrombopag at 20mg daily Repeat labs in 1 week Pt to walk into lab after cardiology OV 10/04/23 Ordered weekly cbcd Assessment of compliance: compliant Dose adjustment needed based on lab or adverse drug reaction? Yes, resume at reduced dose Follow up: 10/03 Winter Casiano, PharmD, BCOP Clinical Pharmacist, [facility] Oral Chemotherapy [facility] 09/25/2023, 12:16 PM Pertinent labs: Latest Reference Range & Units 09/12/23 14:53 09/18/23 15:51 09/25/23 10:54 WBC 4.00 - 10.80 K/uL 12.29 (H) 11.39 (H) 9.82 HGB 12.0 - 15.3 g/dL 9.3 (L) 9.3 (L) 9.7 (L) HCT 36.0 - 45.2 % 29.7 (L) 29.4 (L) 31.0 (L) MCV 81.5 - 97.5 fL 97.7 97.0 97.5 PLT 140 - 400 K/uL 919 (H) 584 (H) 159 Absolute Neutrophils 1.80 - 7.70 K/uL 8.88 (H) 8.39 (H) 7.31 Time Spent on Encounter: 11 - 15 minutes Encounter Group: Hematology Encounter Interventions Item Category: Oral Chemotherapy Other: Avatrombopag Problem/Rationale: Safety: Needs additional monitoring - Medication Requires monitoring Pharmacist Intervention(s): Clarification with Provider, Dose decreased, Lab monitoring, Medicationresumed, and Orders labs Magnitude of Intervention: Modification of medication for asymtomatic patients (Level 2) documented in this encounter Plan of Treatment Upcoming Encounters Date Type Department Care Team (Late st Contact Info) Description 10/04/2023 9:00 AM EDT Pharmacy Pharmacy Hematology Oncology [facility] [address] [place] [address] [facility] Hem/Onc [address] [place] [address] 10/04/2023 10:30 AM EDT Office Visit Cardiology, [facility] [address] [place] [address] Kizzy Badillo PA-C [address] [place] [address] 11/01/2023 2:30 PM EDT Cardiac Studies Cardiac Studies, [facility] [address] [place] [address] 11/14/2023 9:40 AM EDT Office Visit Family Practice [facility] [address] [place] [address] Toshia Reynaga DO [address] [place] [address] 12/21/2023 2:00 PM EDT Office Visit Cardiology, [facility] [address] [place] [address] Huong Oseguera CRNP [address] [place] [address] 01/03/2024 11:15 AM EDT Office Visit Hematology/Oncology [facility] [place] [address] [place] [id number] Zeeshan Choi MD [address] [place] [address] Health Maintenance Due Date Last Done Comments Pneumococcal Vaccine: 65+ Years (1 of 2 - PCV) 09/29/1941 Depression Screening 1947 DTaP,Tdap,and Td Vaccines (1 - Tdap) 09/29/1954 Zoster Vaccines (1 of 2) 09/29/1985 COVID-19 Vaccine (1 - 2022-24 season) 2023 Influenza Vaccine (FLU shot) (#1) 2023 CKD PHOS USE SMARTSET 42777 11/11/2023 11/10/2022 Albumin/Creatinine Ratio 05/11/2024 05/11/2023, 07/24 O2 ASSESSMENT COMPLETED IN PAST YEAR FOR COPD 09/18/2024 09/18/2023 CKD HGB USE SMARTSET 04651 09/24/202409/24, 09/25/2023, 09/18/2023, Additional history exists DXA [...] purpura documented in this encounter Care Teams Spray I Painter Relationship Specialty Start Date End Date Toshia Reynaga DO [address] [place] [address] PCP - General Family Medicine 12/07/22 documented as of this encounter
--- OUTSIDE RECORDS SUMMARY | 2023-12-06 23:34 | External Medical Summary ---
Author Name Unknown Address Unknown Organization K09:[facility] [address] Laboratory Report Ordering Provider Test Date Status RAMU VASQUES 09/25/2023 10:54:56 Final Observation Date Value Abnormality Reference (Units ) Status WBC, Total 09/25/2023 10:54:56 9.82 4.00-10.8 0 (K/uL) Final RBC 09/25/2023 10:54:56 3.18 3.85-5.15 (M/uL) Final Hemoglobin 09/25/2023 10:54:56 9.7 Below low normal 12 .0-15.3 (g/dL) Final HCT 09/25/2023 10:54:56 31.0 Below low normal 36. 0-45.2 (%) Final MCV 09/25/2023 10:54:56 97.5 81.5-97.5 (fL) Final MCH 09/25/2023 10:54:56 30.5 27.0-34.0 (pg) Final MCHC 09/25/2023 10:54:56 31.3 32.0-36.0 (g/dL) Final RDW 09/25/2023 10:54:56 16.6 11.5-15.5 (%) Final Platelets 09/25/2023 10:54:56 159 140-400 (K /uL) Final MPV 09/25/2023 10:54:56 10.8 6.6-11.1 ( fL) Final Performing Location [facility] [place] [address]
--- OUTSIDE RECORDS SUMMARY | 2023-12-06 23:34 | External Medical Summary | Summary of Care ---
Author Name Unknown Organization [facility] Address [address] [place] [address] Phone [phone] Care Team Providers Care Teachers' Aide Name Role Phone Toshia Reynaga DO Primary Care Provider [phone] Reason for Visit * Reason Comments Follow Up Encounter Details Date Type Department Care Team (Latest Contact Info) Description 09/18/2023 3:00 PM EST Office Visit Pulmonary Medicine, [facility] [address] [facility] [place] [address] Enrique Fernandez MD [address] [facility] [place] [address] COPD, severe (HCC)*; COPD, group B, by GOLD 2017 classification (HCC); HTN, goal below 140/90; Stage 3a chronic kidney disease (HCC); Moderate pulmonary hypertension (HCC) Allergies Active Allergy Reactions Criticality Noted [...] Active Doptelet 20 MG Oral Tablet (Avatrombopag Maleate)Indicatio ns:Chronic ITP (idiopathic thrombocytopenia) (HCC) Take 2 tablets (40mg) by mouth in morning. 60 Tablet 5 08/22/2023 Active Additional Information Patient not taking.Reported on 09/15/2023 Spacer/Aero-Holdi ng Chambers Device Use with inhaler. [...] 60 Blister Dosing Unit 0 09/18/2023 Active Spiriva Respimat 2.5 MCG/ACT Inhalation Aerosol Solution (Tiotropium [place] Monohydrate)Indic ations:COPD, very severe (HCC) Inhale 2 Puffs by mouth in the morning. 4 g 3 08/15/2023 Discontinue d(Adverse reaction) Hospital, Clinic, or Other Facility Administered Medication [...] Sign Reading Time Taken Comments Blood Pressure 116/58 09/18/2023 3:02 PM EST Pulse 68 09/18/2023 3:02 PM EST Temperature 35.6 C (96 F) 09/18/2023 3:02 PM EST Respiratory Rate 16 09/18/2023 3:02 PM EST Oxygen Saturation 97% 09/18/2023 3:02 PM EST ra at rest Inhaled Oxygen Concentration - - Weight 50.3 kg (111 lb) 09/18/2023 3:02 PM EST Height 154.9 cm (5' 1") 09/18/2023 3:02 PM EST p er the patient Body Mass Index 20.97 09/18/2023 3:02 PM EST documented in this encounter Progress Notes * Enrique Fernandez MD - 09/18/2023 3:09 PM EST 09/18/2023 Pulmonary Medicine, [address] [phone] Edilma Kennedy 1935 female 87 year old Attending Physician Documentation: 87-year-old female, 5 pack-year smoking history quit 1978, significant degree of secondhand smoke exposure, 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 Patient was admitted to [facility] hospital August where she presented with cough and congestionwith shortness of breath and worsening lower extremity edema. Patient was diagnosed with acute on chronic heart failure along with COPD exacerbation. Trace bilateral pleural effusions were noted, treated with nebulized bronchodilator therapy and diuresis with gradual improvement in respiratory status. Discharge home on furosemide and Spiriva along with rescue albuterol therapy. Patient describes gradual resolution of lower extremity swelling. Compliant with albuterol, unable to use Spiriva due to difficulty with technique. Denies shortness of breath at rest. Sedentary lifestyle with ambulation at home. Describes occasional productive cough. Patient was not able to use hernebulizer therapy, correct use procedure was demonstrated. Review of historical pulmonary workup data shows severe obstructive and severe restrictive ventilatory pattern noted on recent PFTs in March 2023. Chest x- ray August 2023 shows complete resolution of previously noted pleural effusions. CT chest reveals scattered subcentimeter pulmonary nodules along with ground-glass changes and trace bilateral effusion consistent with volume overload. Pulmonary nodules are 3-4 mm in size and are likely benign based on appearance. Repeat CT scan chest without contrast recommended in 1 year. Physical examination significant for class 2 throat, dry oral mucosa, compromised air entry with scattered coarse wheezing and rhonchi without dullness, regular cardiac rhythm with loud right parasternal systolic murmur, no evidence of volume overload and nonlateralizing Neuro examination. Overall clinical picture consistent with multifactorial dyspnea including CHF and COPD. Current Bronchodilator therapy will be optimized to include Trelegy along with continuation of nebulized albuterol therapy for better compliance. 6 minute walk test and nocturnal pulse oximetry on room air will be done to assess need for home oxygen therapy. Pulmonary clinic follow-up assessment in 2 months. Patient was advised to contact the office with any change in respiratory symptoms status. Assessment Follow Up: Return in about 2 months (around 11/17/2023) for Clinic Visit. 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 CAT mMRC Results 05/16/2023 11:35 09/18/2023 15:11 Modified Medical Research [place] Dyspnea Scale When do you become breathless? (1) I get short of breath when hurrying on level ground (4) I am toobreathless to leave the house or I am breathless when dressing Total MMRC Score 1 4 COPD Assessment Test (CAT) How frequently do you cough? (2) (2) Do you have phlegm in your chest? (2) (2) Is your chest tight? (0) - My chest does not feel tight at all (2) How breathless do you become when walking up a hill or steps? (5) - When I walk up a hill or one flight of stairs I am very breathless (5) - When I walk up a hill or one flight of stairs I am very breathless How limited are you doing activities at home? (0) - I am not limited doing any activities at home (2) How confident are you leaving home with your lung condition? (0) - I am confident leaving my home despite my condition (0) - I am confident leaving my home despite my condition How soundly do you sleep? (3) (0) - I sleep soundly How much energy do you have? (3) (3) Total CAT Score 15 16 Interm History/Respiratory Symptoms Cough: Yes with yellow phlegm Hemoptysis: None Sinus Symptoms: Drainage Hospitalizations: Yes at [facility]. She was discharged on 09/06 ED Trips: Yes admitted Triggers: Exertion Nocturnal: None CPAP/BiPAP/O2: None Flu Vaccine: Declined Pneumovax: Declined Prevnar: Declined COVID 19: Declined Objective Filed Vitals: 09/18/23 1502 BP: 116/58 Pulse: 68 Resp: 16 Temp: 35.6 C (96 F) TempSrc: Tympanic SpO2: 97% Weight: 50.3 kg (111 lb) Height: 1.549 m (5' 1") Exam: Const: No signs of acute distress present. Head/Face: Normal on inspection. Eyes: Conjunctivae clear. Pupils equal round and reactive to light. ENMT: Oropharynx: No erythema, exudate or masses. Posterior pharynx is normal. Neck: Supple and symmetric. Resp: Respiratory examination as outlined above CV: Rate is regular. Rhythm is regular. No heart murmur appreciated. Extremities: No edema of the lower limbs bilaterally. Skin: Skin is warm and dry. Neuro: Coordination normal. No involuntary movement. Psych: Patient's attitude is cooperative. Mood is normal. Affect is normal. Tests reviewed with the patient: XR CHEST 2 VIEWS Result Date: 09/13/2023 IMPRESSION No evidence of acute cardiopulmonary disease. VASC DUPLEX VENOUS LE UNILAT Result Date: 08/08/2023 : Right lower extremity with no evidence of acute deep venous thrombosis. CT PULMONARY EMBOLUS W CONTRAST Result Date: 08/08/2023 IMPRESSION 1. No pulmonary embolism to the proximal subsegmental level. 2. Small right and trace left pleural effusions. 3. Mild mosaic attenuation throughout both lungs, which likely represent hypoventilatory changes, but could also represent pulmonary edema or acute infection/inflammation in the correct setting. 4. Multiple small 3-4 mm solid nodules in both lungs, which are likely benign in the absence of known malignancy. If the patient has risk factors for lung cancer, an optional follow-up CT of the chest can be considered in 1 year. 5. Partially imaged cystic lesion in the left upper quadrant measuring at least 2.6 cm, which likely represents a renal cyst, but is incompletely imaged.Follow- up with renal ultrasound is recommended. These findings were reported to and acknowledged byQueta Maldonado PA-C via secure messaging on 08/08/2023 at 1:09 p.m. Available Radiologic data was reviewed by me in PACS. The images were shown to the patient and findings were discussed with the patient. HOME MEDICATIONS: Trelegy Ellipta 100-62.5-25 MCG/ACT Aerosol Powder Breath Activated (Hdbvouozljf-Txmzvkgwkafj-Axwmjordqn) Furosemide 40 MG Oral Tablet (Lasix) Albuterol Sulfate (2.5 MG/3ML) 0.083% Inhalation Nebulization Solution (Proventil) Spacer/Aero-Holding Chambers Device amLODIPine Besylate 10 MG Oral Tablet (Norvasc) Losartan Potassium 100 MG Oral Tablet (Cozaar) Acetaminophen 500 MG Oral Tablet (Tylenol) Bisoprolol Fumarate 5 MG Oral Tablet (Zebeta) Albuterol Sulfate HFA 108 (90 Base) MCG/ACT Inhalation Aerosol Solution Cyanocobalamin 1000 MCG Oral Tablet Polyethylene Glycol 3350 17 GM/SCOOP Oral Powder (MiraLax) Vitamin D3 125 MCG (5000 UT) Oral Capsule Doptelet 20 MG Oral Tablet (Avatrombopag Maleate) Albuterol Sulfate (Proventil) (2.5 MG/3ML) 0.083% inhalation solution 2.5 mg ROS: No reported history of Hemoptysis, Hematemesis, Melena No reported history of Dysuria, Hematuria, Flank Pain No reported history of chronic headache, seizures No reported history of Fall or trauma . No reported history of recent change in weight or appetite. No past medical history on file. Past Surgical History: Procedure Laterality Date FACE/SCALP SUBQ TUMOR REMOVAL, 2 CM OR MORE N/A 07/28/2023 EXCISION FACE/SCALP SUBQ TUMOR, 2 CM OR MORE performed by Paula Callahan MD at [facility] Social History Socioeconomic History Marital status: Tobacco Use Smoking status: Former Current packs/day: 0.00 Average packs/day: 0.3 packs/day for 5.0 years (1.3 ttl pk-yrs) Types: Cigarettes Start date: 1973 Quit date: 1978 Years since quittin.1 Passive exposure: Never Smokeless tobacco: Never Vaping Use Vaping Use: Never used Substance and Sexual Activity Alcohol use: Never Drug use: Never No family history on file. Review of patient's allergies indicates: Allergen Reactions Lisinopril Other (Please comment) Burning in throat documented in this encounter Nursing Notes * Ktalyn Parsons LPN - 09/18/2023 2:56 PM EST Pt here for follow up of COPD. CAT mMRC Results 05/16/2023 11:35 09/18/2023 15:11 Modified Medical Research [place] Dyspnea Scale When do you become breathless? (1) I get short of breath when hurrying on level ground (4) I am toobreathless to leave the house or I am breathless when dressing Total MMRC Score 1 4 COPD Assessment Test (CAT) How frequently do you cough? (2) (2) Do you have phlegm in your chest? (2) (2) Is your chest tight? (0) - My chest does not feel tight at all (2) How breathless do you become when walking up a hill or steps? (5) - When I walk up a hill or one flight of stairs I am very breathless (5) - When I walk up a hill or one flight of stairs I am very breathless How limited are you doing activities at home? (0) - I am not limited doing any activities at home (2) How confident are you leaving home with your lung condition? (0) - I am confident leaving my home despite my condition (0) - I am confident leaving my home despite my condition How soundly do you sleep? (3) (0) - I sleep soundly How much energy do you have? (3) (3) Total CAT Score 15 16 Interm History/Respiratory Symptoms Cough: Yes with yellow phlegm Hemoptysis: None Sinus Symptoms: Drainage Hospitalizations: Yes at [facility]. She was discharged on 09/06 ED Trips: Yes admitted Triggers: Exertion Nocturnal: None CPAP/BiPAP/O2: None Flu Vaccine: Declined Pneumovax: Declined Prevnar: Declined COVID 19: Declined documented in this encounter Plan of Treatment Upcoming Encounters Date Type Department Care Team (Late st Contact Info) Description 09/19/2023 9:00 AM EST Pharmacy Pharmacy Hematology Oncology [facility] [address] [place] [address] [facility] Hem/Onc [address] [place] [address] 10/04/2023 10:30 AM EDT Office Visit Cardiology, [facility] [address] [place] [address] Kizzy Badillo PA-C [address] [place] [address] 11/01/2023 2:30 PM EDT Cardiac Studies Cardiac Studies, [facility] [address] [place] [address] 11/14/2023 9:40 AM EDT Office Visit Family Practice [facility] [address] [place] [address] Toshia Reynaga DO [address] [place] [address] 12/06/2023 11:20 AM EDT Office Visit Dermatology [address] [place] [address] Toshia Mattson PA-C [address] [place] [address] [place] [address] 12/21/2023 2:00 PM EDT Office Visit Cardiology, [facility] [address] [place] [address] Huong Oseguera CRNP [address] [place] [address] 01/03/2024 11:15 AM EDT Office Visit Hematology/Oncology [facility] [address] [place] [phone] Zeeshan Choi MD [address] [place] [address] Scheduled Orders Name Type Priority Associated Diagnoses Orde r Schedule PULMONARY STRESS TESTING Procedures Routine COPD, severe (HCC) Expected: 09/19/2023, Expires: 10/16/2024 NOCTURNAL HOME OXIMETRY (OP) Procedures Routine COPD, severe (HCC) Ordered: 09/18/2023 Health Maintenance Due Date Last Done Comments Pneumococcal Vaccine: 65+ Years (1 of 2 - PCV) 09/29/1941 Depression Screening 1947 DTaP,Tdap,and Td Vaccines (1 - Tdap) 09/29/1954 Zoster Vaccines (1 of 2) 09/29/1985 COVID-19 Vaccine (1 - 2022- season) 2023 Influenza Vaccine (FLU shot) (#1) 2023 CKD PHOS USE SMARTSET 00969 11/11/2023 11/10/2022 Albumin/Creatinine Ratio 05/11/2024 05/11/2023, 07/24 CKD HGB USE SMARTSET 47439 09/18/202409/18, 09/18/2023, 09/12/2023, Additional history exists O2 [...] Primary Chronic airway obstruction, not elsewhere classified COPD, group B, by GOLD 2017 classification (HCC) HTN, goal below 140/90 Unspecified essential hypertension Stage 3a chronic kidney disease (HCC) Moderate pulmonary hypertension (HCC) documented in this encounter Care Teams Teachers' Aide Relationship Specialty Start Date End Date Toshia Reynaga DO [address] [place] [address] PCP - General Family Medicine 12/07/22 documented as of this encounter
--- OUTSIDE RECORDS SUMMARY | 2023-12-06 23:34 | External Medical Summary | Summary of Care ---
Author Name Unknown Organization [facility] Address [address] [place] [address] Phone [phone] Care Team Providers Care Clinical Audiologist Name Role Phone Toshia Reynaga DO Primary Care Provider [phone] Reason for Visit * Reason Comments Medication Management Encounter Details Date Type Department Care Team (Late st Contact Info) Description 09/19/2023 9:00 AM [facility] Pharmacy Pharmacy Hematology Oncology [facility] [address], [place] [id number] [facility] [place], [facility] Hem/Onc [address], [place] [id number] Chronic ITP (idiopathic thrombocytopenia) ([facility])* Allergies Active Allergy Reactions Criticality [...] 60 Blister Dosing Unit 0 09/18/2023 Active Hospital, Clinic, or Other Facility Administered [...] encounter Progress Notes * Winter Casiano, [facility] [place] - 09/19/2023 8:53 AM EST MEDICATION THERAPY MANAGEMENT AVATROMBOPAG TREATMENT PROGRESS NOTE Edilma Kennedy [phone] Patient Phone Numbers Son: Christian Communication: Spoke to: Patient Treatment: Medication: Avatrombopag (Doptelet) Indication/Staging/Diagnosis Code: ITP/D69.3 Dose: 40mg daily (DI 11/03/22) Administration: with food Start Date: November 2019 Primary Thermograph Operator/Oncologist: Dr. Gabriel Choi Additional therapy: Rutiximab x 2 Interval History: Pt admitted to [facility] 05/23/22 for bleeding and PLT < 10K and transferred to [facility] 05/24/22 and discharged 06/18/22 Per OV 03/09/23, lab monitoring extended to monthly Admitted to [facility] 09/01/23-09/06/23 for CHF/COPD exacerbation - avatrombopag continued during admission despite PLT 718K 09/01/23 Denies s/s of VTE Changes to medication list since last visit? No Assessment and plan: PLT remain significantly above goal (50-200K) Hgb low but improving. Will monitor closely All other labs stable Per discussion with Dr. Choi, continue to hold and repeat labs in 1 week (scheduled 09/24 @1100) Assessment of compliance: compliant Dose adjustment needed based on lab or adverse drug reaction? No, continue to HOLD Follow up: 09/24 Winter Casiano, PharmD, BCOP Clinical Pharmacist, [facility] Oral Chemotherapy [facility] 09/19/2023, 11:15 AM Pertinent labs: Latest Reference Range & Units 08/08/23 10:06 09/12/23 14:53 09/18/23 15:51 WBC 4.00 - 10.80 K/uL 8.54 12.29 (H) 11.39 (H) HGB 12.0 - 15.3 g/dL 8.7 (L) 9.3 (L) 9.3 (L) HCT 36.0 - 45.2 % 28.1 (L) 29.7 (L) 29.4 (L) MCV 81.5 - 97.5 fL 96.9 97.7 97.0 PLT 140 - 400 K/uL 455 (H) 919 (H) 584 (H) Absolute Neutrophils 1.80 - 7.70 K/uL 6.24 8.88 (H) 8.39 (H) Time Spent on Encounter: 6 - 10 minutes Encounter Group: Hematology Encounter Interventions Item Category: Oral Chemotherapy Other: Avatrombopag Problem/Rationale: Safety: Dosage too high - Dose too high Pharmacist Intervention(s): Care coordination, Clarification with Provider, Lab monitoring, Medication held, and Toxicity monitoring Magnitude of Intervention: Monitoring with no interventions (Level 0) documented in this encounter Plan of Treatment Upcoming Encounters Date Type Department Care Team (Late st Contact Info) Description 09/25/2023 9:00 AM EST Pharmacy Pharmacy Hematology Oncology [facility] [address] [place] [address] [facility] [place], [facility] Hem/Onc [address] [place] [address] 09/25/2023 11:00 AM EST Laboratory Laboratory Scenery [facility] [address] [place] [phone] [facility] Scenery [address] [facility] [place] [address] 10/04/2023 10:30 AM EDT Office Visit Cardiology, [facility] [address] [facility] [place] [address] Kizzy Badillo PA-C [address] [facility] [place] [phone] 11/01/2023 2:30 PM EDT Cardiac Studies Cardiac Studies, [facility] [place] [address] 11/14/2023 9:40 AM EDT Office Visit Family Practice [facility] [address] [facility] [place] [address] Toshia Reynaga DO [address] [place] [address] 12/06/2023 11:20 AM EDT Office Visit Dermatology [address] [place] [address] Toshia Mattson PA-C [address] [place] [address] [place] [address] 12/21/2023 2:00 PM EDT Office Visit Cardiology, [facility] [address] [place] [address] Huong Oseguera CRNP [address] [place] [address] 01/03/2024 11:15 AM EDT Office Visit Hematology/Oncology [facility] [address] [facility] [place] [phone] Zeeshan Choi MD [address] [facility] [place] [address] Health Maintenance Due Date Last Done Comments Pneumococcal Vaccine: 65+ Years (1 of 2 - PCV) 09/29/1941 Depression Screening 1947 DTaP,Tdap,and Td Vaccines (1 - Tdap) 09/29/1954 Zoster Vaccines (1 of 2) 09/29/1985 COVID-19 Vaccine (1 - 2022-24 season) 2023 Influenza Vaccine (FLU shot) (#1) 2023 CKD PHOS USE SMARTSET 71840 11/11/2023 11/10/2022 Albumin/Creatinine Ratio 05/11/2024 05/11/2023, 07/24 CKD HGB USE SMARTSET 32823 09/18/202409/18, 09/18/2023, 09/12/2023, Additional history exists O2 [...] purpura documented in this encounter Care Teams Clinical Audiologist Relationship Specialty Start Date End Date Toshia Reynaga DO [address] [place] [address] PCP - General Family Medicine 12/07/22 documented as of this encounter
--- OUTSIDE RECORDS SUMMARY | 2023-12-06 23:35 | External Medical Summary ---
Author Name Unknown Address Unknown Organization [id number] [[email or web address]] [place] [address] [place] [address] Laboratory Report Ordering Provider Test Date Status RONAK LYNCH 09/12/2023 14:53:26 Final Observation Date Value Abnormality Reference (Units ) Status WBC, Total 09/12/2023 14:53:26 12.29 Above high normal 4 .00-10.80 (K/uL) Final RBC 09/12/2023 14:53:26 3.04 3.85-5.15 (M/uL) Final Hemoglobin 09/12/2023 14:53:26 9.3 Below low normal 12 .0-15.3 (g/dL) Final HCT 09/12/2023 14:53:26 29.7 Below low normal 36. 0-45.2 (%) Final MCV 09/12/2023 14:53:26 97.7 81.5-97.5 (fL) Final MCH 09/12/2023 14:53:26 30.6 27.0-34.0 (pg) Final MCHC 09/12/2023 14:53:26 31.3 32.0-36.0 (g/dL) Final RDW 09/12/2023 14:53:26 15.8 11.5-15.5 (%) Final Platelets 09/12/2023 14:53:26 919 Above high normal 14 0-400 (K/uL) Final MPV 09/12/2023 14:53:26 10.2 6.6-11.1 ( fL) Final Performing Location [facility] [[email or web address]] [place] [address] 0 - [address] [place] [address]
--- OUTSIDE RECORDS SUMMARY | 2023-12-06 23:35 | External Medical Summary ---
Author Name Unknown Address Unknown Organization [facility] [address] - [address] [place] [address] Laboratory Report Ordering Provider Test Date Status RONAK LYNCH 09/12/2023 14:53:26 Final Observation Date Value Abnormality Reference (Units ) Status Nucleated erythrocytes/100 leukocytes [Ratio] in Blood by Automated count 09/12/2023 14:53:26 Final Schistocytes 09/12/2023 14:53:26 Few Abnormal None Seen Final Performing Location [facility] [address] 0 - [address] [place] [address]
--- OUTSIDE RECORDS SUMMARY | 2023-12-06 23:35 | External Medical Summary ---
Author Name Unknown Address Unknown Organization [facility] [address] - [address] [place] [address] Laboratory Report Ordering Provider Test Date Status RONAK LYNCH 09/12/2023 14:53:26 Final Observation Date Value Abnormality Reference (Units ) Status SYNC LEUKOCYTES IN BLOOD BY AUTOMATED COUNT 09/12/2023 14:53:26 12.29 Above high normal 4.00-10.80 (K/uL) Final Segs 09/12/2023 14:53:26 72.3 40.0-75.0 (%) Final Lymphs % 09/12/2023 14:53:26 15.2 Below low normal 18.0-42.0 (%) Final Monos 09/12/2023 14:53:26 9.5 1.0-11.0 (%) Final Eosinophils 09/12/2023 14:53:26 2.4 0.0-6.0 (%) Final Basos 09/12/2023 14:53:26 0.6 0.0-2.0 (%) Final Absolute Segs 09/12/2023 14:53:26 8.88 Above high normal 1.80-7.70 (K/uL) Final Lymphs, absolute 09/12/2023 14:53:26 1.87 1.00-4.80 (K/ul) Final Monos, Abs 09/12/2023 14:53:26 1.17 Above high normal 0.00-1.10 (K/uL) Final Eos, Abs 09/12/2023 14:53:26 0.30 0.00-0.70 (K/uL) Final Basos, Abs 09/12/2023 14:53:26 0.07 0.00-0.20 (K/uL) Final Performing Location [facility] [address] - [address] [place] [address]
--- OUTSIDE RECORDS SUMMARY | 2023-12-06 23:35 | External Medical Summary ---
Author Name Unknown Address Unknown Organization [facility] [place] [address] [place] [address] Laboratory Report Ordering Provider Test Date Status RAMU VASQUES 09/18/2023 15:51:46 Final Observation Date Value Abnormality Reference (Units ) Status SYNC LEUKOCYTES IN BLOOD BY AUTOMATED COUNT 09/18/2023 15:51:46 11.39 Above high normal 4.00-10.80 (K/uL) Final Segs 09/18/2023 15:51:46 73.7 40.0-75.0 (%) Final Lymphs % 09/18/2023 15:51:46 16.1 Below low normal 18.0-42.0 (%) Final Monos 09/18/2023 15:51:46 7.0 1.0-11.0 (%) Final Eosinophils 09/18/2023 15:51:46 2.6 0.0-6.0 (%) Final Basos 09/18/2023 15:51:46 0.6 0.0-2.0 (%) Final Absolute Segs 09/18/2023 15:51:46 8.39 Above high normal 1.80-7.70 (K/uL) Final Lymphs, absolute 09/18/2023 15:51:46 1.83 1.00-4.80 (K/ul) Final Monos, Abs 09/18/2023 15:51:46 0.80 0.00-1.10 (K/uL) Final Eos, Abs 09/18/2023 15:51:46 0.30 0.00-0.70 (K/uL) Final Basos, Abs 09/18/2023 15:51:46 0.07 0.00-0.20 (K/uL) Final Performing Location [facility] [place] [address] - [address] [place] [address]
--- OUTSIDE RECORDS SUMMARY | 2023-12-06 23:35 | External Medical Summary | Summary of Care ---
Author Name Unknown Organization [facility] Address [address] [place] [address] Phone [phone] Care Team Providers Care Gear Lapper Name Role Phone Toshia Reynaga DO Primary Care Provider [phone] Reason for Visit * Reason Onset Date Comments Follow Up 08/23/2023 Encounter Details Date Type Department Care Team (Late st Contact Info) Description 08/23/2023 Telephone Family Practice [facility] [address] [facility] [address] Toshia Reynaga DO [address] [place] [facility] [address] Follow Up (/) Allergies Active Allergy Reactions Criticality Noted Date Comments Lisinopril Other (Please comment) 05/06/2022 Burning in throat documented as of this encounter (statuses as of 08/28/2023) Medications Medication Sig Dispensed Refills Start Date [...] or juice. 507 g 3 04/25/2022 Active Lansoprazole 30 MG Oral Capsule Delayed Release (Prevacid) 1 Capsule. 0 06/18/2022 Active Albuterol Sulfate HFA 108 (90 Base) MCG/ACT Inhalation Aerosol SolutionIndication s:COPD, very severe (HCC) Inhale 2 Puffs by mouth every 4 hours as needed for Cough, Shortness of Breath or Wheezing. 20.1 g 12 05/16/2023 Active Bisoprolol Fumarate 5 MG Oral Tablet (Zebeta)Indication s:HTN, goal below 140/90 TAKE 1 TABLET EVERY MORNING 90 Tablet 1 07/18/2023 Active hydroCHLOROthiazid e 12.5 MG Oral Tablet (Hydrodiuril)Indic ations:HTN, goal below 140/90 TAKE 1 TABLET EVERY [...] the morning. 90 Tablet 2 08/02/2023 Active Spiriva Respimat 2.5 MCG/ACT Inhalation Aerosol Solution (Tiotropium [place] Monohydrate)Indica tions:COPD, very severe (HCC) Inhale 2 Puffs by mouth in the morning. 4 g 3 08/15/2023 Active Doptelet 20 MG Oral Tablet (Avatrombopag Maleate)Indication s:Chronic ITP (idiopathic thrombocytopenia) (HCC) Take 2 tablets (40mg) by mouth in morning. 60 Tablet 5 08/22/2023 Active Furosemide 20 MG Oral Tablet (Lasix) Take 1 Tablet by mouth in the morning. For one week, then recheck labs and hold medicine.. 30 Tablet 0 08/08/2023 4 Discontinue d(Refill) Hospital, Clinic, or Other Facility Administered Medication Ordered Dose Route Frequency Start Date End Date Status Albuterol Sulfate (Proventil) (2.5 MG/3ML) 0.083% inhalation solution 2.5 mgIndications:COPD, severity to be determined (HCC) 2.5 mg NEBULIZER ONCE PRN 02/17/2023 02/17/2024 Active documented as of this encounter (statuses as of 08/28/2023) Active Problems Problem Noted Date Diagnosed Date COPD, group B, by GOLD 2017 classification [...] as of this encounter (statuses as of 08/28/2023) Resolved Problems Problem Noted Date Diagnosed Date Resolved Date Chronic obstructive pulmonary disease 05/11/2023 06/08/2023 Overview: Per COPD GOLD Classification documented as of this encounter (statuses as of 08/28/2023) Immunizations No known immunizationsdocumented as of this [...] encounter Miscellaneous Notes * Telephone Encounter - Francisco Owen OSA - 08/28/2023 9:04 AM EST Called and spoke to pt, scheduled f/u with Lorri Pringle on 09/14 * Telephone Encounter - Toshia Reynaga DO - 08/27/2023 11:08 AM EST CAPNIA message has not been read, please call * Telephone Encounter - Francisco Owen OSA - 08/24/2023 2:21 PM EST Next opening with Dr. Reyngaa is in mid-September. Ok to offer AP? * Telephone Encounter - Toshia Reynaga DO - 08/23/2023 12:16 PM EST Please schedule follow up appt for aug 2023 Thank you documented in this encounter Plan of Treatment Upcoming Encounters Date Type Department Care Team (Late st Contact Info) Description 09/14/2023 1:00 PM EST Office Visit [facility] [address] [place] [address] Lorri Pringle CRNP [address] [place] [address] 09/15/2023 9:00 AM EST Pharmacy Pharmacy Hematology Oncology [facility] [address] [place] [address] [facility] Hem/Onc [address] [place] [address] 11/01/2023 2:30 PM EDT Cardiac Studies Cardiac Studies, [facility] [address] [place] [address] 11/14/2023 9:40 AM EDT Office Visit [facility] [address] [place] [address] Toshia Reynaga DO [address] [place] [address] 12/06/2023 11:20 AM EDT Office Visit Dermatology [address] [place] [address] Toshia Mattson PA-C [address] [place] [address] [place] [address] 12/21/2023 2:00 PM EDT Office Visit Cardiology, [facility] [address] [place] [address] Huong Oseguera CRNP [address] [place] [address] 01/03/2024 11:15 AM EDT Office Visit Hematology/Oncology [facility] [address] [facility] [place] [address] Zeeshan Choi MD 200 [facility] [place] [address] Health Maintenance Due Date Last Done Comments COVID-19 Vaccine (#1) 04/01/1936 Pneumococcal Vaccine: 65+ Years (1 - PCV) 09/29/1941 Depression Screening 1947 DTaP,Tdap,and Td Vaccines (1 - Tdap) 09/29/1954 Zoster Vaccines (1 of 2) 09/29/1985 Influenza Vaccine (FLU shot) (#1) 2023 CKD PHOS USE SMARTSET 40643 11/11/2023 11/10/2022 Albumin/Creatinine Ratio 05/11/2024 05/11/2023, 07/24 CKD HGB USE SMARTSET 36237 08/08/202408/08, 08/08/2023, 07/26/2023, Additional history exists O2 ASSESSMENT COMPLETED IN PAST YEAR FOR COPD 08/15/2024 08/15/2023 DXA Scan 12/07/2032 12/07/2022 Alpha-1 Antitrypsin Completed [...] filedocumented as of this encounter Care Teams Gear Lapper Relationship Specialty Start Date End Date Toshia Reynaga DO [address] [place] [address] PCP - General Family Medicine 12/07/22 documented as of this encounter
--- OUTSIDE RECORDS SUMMARY | 2023-12-06 23:35 | External Medical Summary | Summary of Care ---
Author Name Unknown Organization [facility] Address [address] [place] [address] Phone [phone] Care Team Providers Care Custom Designer Name Role Phone Toshia Reynaga DO Primary Care Provider [phone] Encounter Details Date Type Department Care Team (Late st Contact Info) Description 07/31/2023 Result Scan Unspecified Department <No scans attached> Allergies Active Allergy Reactions Criticality Noted Date Comments Lisinopril Other (Please comment) 05/06/2022 Burning in throat documented as of this encounter (statuses as of 08/29/2023) Medications Medication Sig Dispensed Refills Start Date [...] HFA 108 (90 Base) MCG/ACT Inhalation Aerosol SolutionIndications: COPD, very severe (HCC) Inhale 2 Puffs by mouth every 4 hours as needed for Cough, Shortness of Breath or Wheezing. 20.1 g 12 05/16/2023 Active Bisoprolol Fumarate 5 MG Oral Tablet (Zebeta)Indications: HTN, goal below 140/90 TAKE 1 TABLET EVERY MORNING 90 Tablet 1 07/18/2023 Active hydroCHLOROthiazide 12.5 MG Oral Tablet (Hydrodiuril)Indicat ions:HTN, goal below 140/90 TAKE 1 TABLET EVERY MORNING 90 Tablet 1 07/18/2023 Active Acetaminophen 500 MG Oral Tablet (Tylenol) Take 1 Tablet by mouth every 6 hours as needed. 0 Active Hospital, Clinic, or Other Facility Administered Medication Ordered Dose Route Frequency Start Date End Date Status Albuterol Sulfate (Proventil) (2.5 MG/3ML) 0.083% inhalation solution 2.5 mgIndications:COPD, severity to be determined (HCC) 2.5 mg NEBULIZER ONCE PRN 02/17/2023 02/17/2024 Active documented as of this encounter (statuses as of 08/29/2023) Active Problems Problem Noted Date Diagnosed Date [...] as of this encounter (statuses as of 08/29/2023) Resolved Problems Problem Noted Date Diagnosed Date Resolved Date Chronic obstructive pulmonary disease 05/11/2023 06/08/2023 Overview: Per COPD GOLD Classification documented as of this encounter (statuses as of 08/29/2023) Immunizations No known immunizationsdocumented as of this encounter Social History Tobacco Use Types Packs/Day Years Used Date Smoking Tobacco: Never Passive Smoke Exposure: Never Smokeless Tobacco: Never [...] Description 09/14/2023 1:00 PM EST Office Visit [facility] [address] [place] [address] Lorri Pringle CRNP [address] [place] [address] 09/15/2023 9:00 AM EST Pharmacy Pharmacy Hematology Oncology [facility] [address] [place] [address] [facility] Hem/Onc [address] [place] [address] 11/01/2023 2:30 PM EDT Cardiac Studies Cardiac Studies, [facility] [address] [place] [address] 11/14/2023 9:40 AM EDT Office Visit [facility] [address] [place] [address] Toshia Reynaga DO [address] [place] [address] 12/06/2023 11:20 AM EDT Office Visit Dermatology [address] [place] [address] Toshia Mattson PA-C [address] [place] [address] [place] [address] 12/21/2023 2:00 PM EDT Office Visit Cardiology, [facility] [address] [place] [address] Huong Oseguera CRNP [address] [place] [address] 01/03/2024 11:15 AM EDT Office Visit Hematology/On[facility] [address] [place] [address] Zeeshan Choi MD 200 [facility] [place] [address] Health Maintenance Due Date Last Done Comments COVID-19 Vaccine (#1) 04/01/1936 Pneumococcal Vaccine: 65+ Years (1 - PCV) 09[birth year]29/1941 Depression Screening 1947 DTaP,Tdap,and Td Vaccines (1 - Tdap) 09/29/1954 Zoster Vaccines (1 of 2) 09/29/1985 Influenza Vaccine (FLU shot) (#1) 2023 CKD PHOS USE SMARTSET 28095 11/11/2023 11/10/2022 Albumin/Creatinine Ratio 05/11/2024 05/11/2023, 07/24 CKD HGB USE SMARTSET 27165 08/08/202408/08, 08/08/2023, 07/26/2023, Additional history exists O2 [...] Date/Time Associated Diagnosis Comments RADIOLOGY SCANNED RESULT 07/31/2023 documented in this encounter Results * RADIOLOGY SCANNED RESULT (07/31/2023) 07/31/2023 No Physician Data Unknown DI[facility]NOSTIC RAD IOLOGY SERVICES documented in this encounter Care Teams Custom Designer Relationship Specialty Start Date End Date Toshia Reynaga DO [address] [place] [address] PCP - General Family Medicine 12/07/22 documented as of this encounter
--- OUTSIDE RECORDS SUMMARY | 2023-12-06 23:35 | External Medical Summary | Summary of Care ---
Author Name Unknown Organization [facility] Address [address] [place] [address] Phone [phone] Care Team Providers Care Senior Technical Editor Name Role Phone Toshia Garza DO Primary Care Provider [phone] Reason for Visit * Reason Onset Date Comments Hospital Follow-Up Pt being seen for hospital f/u apt and was seen for congestion, cough and increase SOB. She is only slightly better, still has some SOB with walking any distance and hard to catch her breath. Pt asking if she can get a nebulizer and use it in place of the inhalers as they are difficult to use for her. Hospital Follow-Up 09/12/2023 Encounter Details Date Type Department Care Team (Latest Contact Info) Description 09/12/2023 2:00 PM EST Office [facility] [address] Toshia Garza DO [facility] [address] Hospital discharge follow-up*; COPD, group B, by GOLD 2017 classification (HCC); Lower extremity edema; Diastolic dysfunction; SOB (shortness of breath) Allergies Active Allergy Reactions Criticality Noted Date Comments Lisinopril Other (Please comment) 05/06/2022 Burning in throat documented as of this encounter (statuses as of 09/12/2023) Medications Medication Sig Dispensed Refills Start Date [...] EVERY MORNING 90 Tablet 1 07/18/2023 Active Additional Information Patient not taking.Reported on 09/12/2023 Acetaminophen 500 MG Oral Tablet (Tylenol) Take 1 Tablet by mouth every 6 hours as needed. 0 Active amLODIPine Besylate 10 MG Oral Tablet (Norvasc)Indications :HTN, goal below 140/90 Take 1 Tablet by mouth in the morning. 90 Tablet 2 08/02/2023 Active Losartan Potassium 100 MG Oral Tablet (Cozaar)Indications: HTN, goal below 140/90 Take 1 Tablet by mouth in the morning. 90 Tablet 2 08/02/2023 Active Spiriva Respimat 2.5 MCG/ACT Inhalation Aerosol Solution (Tiotropium [place] Monohydrate)Indicati ons:COPD, very severe (HCC) Inhale 2 Puffs by mouth in the morning. 4 g 3 08/15/2023 Active Doptelet 20 MG Oral Tablet (Avatrombopag Maleate)Indications: Chronic ITP (idiopathic thrombocytopenia) (HCC) Take 2 tablets (40mg) by mouth in morning. 60 Tablet 5 08/22/2023 Active Furosemide 20 MG Oral Tablet (Lasix) Take 1 Tablet by mouth in the morning. For one week, then recheck labs and hold medicine.. 30 Tablet 0 08/28/2023 Active Spacer/Aero-Holding Chambers Device Use with inhaler. 1 Each 0 09/12/2023 Active Albuterol Sulfate (2.5 MG/3ML) 0.083% Inhalation Nebulization Solution (Proventil) Inhale 1 Vial via nebulizer every 4 hours as needed for Wheezing. 3 mL 1 09/12/2023 Active Hospital, Clinic, or Other Facility Administered Medication Ordered Dose Route Frequency Start Date End Date Status Albuterol Sulfate (Proventil) (2.5 MG/3ML) 0.083% inhalation solution 2.5 mgIndications:COPD, severity to be determined (HCC) 2.5 mg NEBULIZER ONCE PRN 02/17/2023 02/17/2024 Active documented as of this encounter (statuses as of 09/12/2023) Active Problems Problem Noted Date Diagnosed Date [...] as of this encounter (statuses as of 09/12/2023) Resolved Problems Problem Noted Date Diagnosed Date Resolved Date Chronic obstructive pulmonary disease 05/11/2023 06/08/2023 Overview: Per COPD GOLD Classification documented as of this encounter (statuses as of 09/12/2023) Immunizations No known immunizationsdocumented as of this [...] Sign Reading Time Taken Comments Blood Pressure 110/40 09/12/2023 1:58 PM EST Pulse 57 09/12/2023 1:58 PM EST Temperature 35.3 C (95.6 F) 09/12/2023 1:58 PM ES T Respiratory Rate 16 09/12/2023 1:58 PM EST Oxygen Saturation - - Inhaled Oxygen Concentration - - Weight 50.8 kg (112 lb) 09/12/2023 1:58 PM EST Height - - Body Mass Index 21.87 08/08/2023 9:11 AM EST documented in this encounter Progress Notes * Toshia Garza, DO - 09/12/2023 1:48 PM EST Subjective: Edilma Kennedy is a 87 year old female. Chief Complaint Patient presents with Hospital Follow-Up Pt being seen for hospital f/u apt and was seen for congestion, cough and increase SOB. She is onlyslightly better, still has some SOB with walking any distance and hard to catch her breath. Pt asking if she can get a nebulizer and use it in place of the inhalers as they are difficult to use for her. Hospital Follow-Up There are no exam notes on file for this visit. HPI: This is a 87 year old female with PMHx as below presents with hospital follow up Recent Admission: Patient was recently admitted to [facility] on 09/01/23. The date of discharge was 09/06/23. Discharge report received and reviewed. HPI: Admitted to ER on 09/01 with complaints of cough, congestion, SOB Dx with multifactorial sob - CHF/copd exacerbation Dc to home 09/06 Here for follow up continues to be a bit sob 08/08/23 was seen for acute issues - noted Pleural effusions - lasix was started, echo ordered (I believe this was done while in [facility]- will try to obtain) Kidney lesion - US - benign cyst Pulmonary nodules - has follow up with pulmonary. STAIR program enrolled. ___ weight down from this visit - pt states that LE swelling is improved Cardio follow up 09/15 Pulmonary follow up 2/26 Requesting nebulizer for albuterol - did well with this in the hospital Will also order spacer to help with administration of spiriva/albuterol inhalers when used Health Maintenance Due Topic Date Due Pneumococcal Vaccine: 65+ Years (1 of 2 - PCV) Never done Depression Screening Never done DTaP,Tdap,and Td Vaccines (1 - Tdap) Never done Zoster Vaccines (1 of 2) Never done Influenza Vaccine (FLU shot) (1) Never done COVID-19 Vaccine ( - season) Never done Patient Active Problem List Diagnosis Code HTN, goal below 140/90 I10 Chronic ITP (idiopathic thrombocytopenia) ([facility]) D69.3 Constipation K59.00 Protein-calorie malnutrition ([facility]) E46 Stage 3a chronic kidney disease ([facility]) N18.31 Hx of nonmelanoma skin cancer Z85.828 COPD, group B, by GOLD 2017 classification ([facility]) J44.9 Current Outpatient Medications Medication Sig Dispense Refill [...] of water or juice. 507 g 3 Lansoprazole 30 MG Oral Capsule Delayed Release (Prevacid) 1 Capsule. Albuterol Sulfate HFA 108 (90 Base) MCG/ACT [...] mouth in the morning. 90 Tablet 2 Spiriva Respimat 2.5 MCG/ACT Inhalation Aerosol Solution (Tiotropium [place] Monohydrate) Inhale 2 Puffs by mouth in the morning. 4 g 3 Doptelet 20 MG Oral Tablet (Avatrombopag Maleate) Take 2 tablets (40mg) by mouth in morning. 60 Tablet 5 Furosemide 20 MG Oral Tablet (Lasix) Take 1 Tablet by mouth in the morning. For one week, then recheck labs and hold medicine.. 30 Tablet 0 Spacer/Aero-Holding Chambers Device Use with inhaler. 1 Each 0 Albuterol Sulfate (2.5 MG/3ML) 0.083% Inhalation Nebulization Solution (Proventil) Inhale 1 Vial via nebulizer every 4 hours as needed for Wheezing. 3 mL 1 hydroCHLOROthiazide 12.5 MG Oral Tablet (Hydrodiuril) TAKE 1 TABLET EVERY MORNING (Patient not taking: Reported on 09/12/2023) 90 Tablet 1 Current Facility-Administered Medications Medication Dose Route Frequency Provider Last Rate Last Admin Albuterol Sulfate (Proventil) (2.5 MG/3ML) 0.083% inhalation solution 2.5 mg 2.5 mg Nebulizer Once PRN Toshia Garza, DO 2.5 mg at 04/20/23 1131 No past medical history on file. Past Surgical History: Procedure Laterality Date FACE/SCALP SUBQ TUMOR REMOVAL, 2 CM OR MORE N/A 07/28/2023 EXCISION FACE/SCALP SUBQ TUMOR, 2 CM OR MORE performed by Paula Callahan MD at [facility] Review of patient's allergies indicates: Allergen Reactions [...] negative. Wt Readings from Last 3 Encounters: 09/12/23 50.8 kg (112 lb) 08/15/23 55.2 kg (121 lb 12.8 oz) 08/08/23 55.8 kg (123 lb 1.9 oz) Results for orders placed or performed in visit on 08/15/23 COMPREHENSIVE METABOLIC PANEL Result Value Ref Range BUN 21 (H) 6 - 20 mg/dL Creatinine 1.2 (H) 0.5 - 1.0 mg/dL Estimated Glomerular Filtration Rate 43 (L) >=60 mL/min Sodium 141 135 - 146 mmol/L Potassium 4.1 3.5 - 5.1 mmol/L Chloride 101 98 - 107 mmol/L CO2 26 22 - 32 mmol/L Anion Gap 14 7 - 15 mmol/L Glucose 101 70 - 120 mg/dL Albumin 4.2 3.8 - 5.0 g/dL AST 26 10 - 35 U/L Alkaline Phosphatase 50 35 - 130 U/L Bilirubin, Total 1.2 <=1.2 mg/dL Calcium 9.2 8.4 - 10.2 mg/dL Protein 6.4 6.0 - 8.3 g/dL ALT 11 10 - 35 U/L OBJECTIVE: Physical Exam: BP 110/40 | Pulse 57 | Temp 35.3 C (95.6 F) (Tympanic) | Resp 16 | Wt 50.8 kg (112 lb) | BMI 21.87 kg/m | BSA 1.47 m General: alert, healthy, and no distress Heart: regular rate & rhythm and pos LINDA Lungs: coarse sounds heard, expiratory wheezes on L lung base, pos crackles bilateral lungs Extremities: no joint deformities, effusion, or inflammation, pos 1-2+ pitting edema bilateral LE Hospital discharge follow-up (Primary) - DISCH MED RECON CUR MED LIS - XR CHEST 2 VIEWS COPD, group B, by GOLD 2017 classification (HCC) - XR CHEST 2 VIEWS - CBC WITH WBC DIFFERENTIAL; Future; Expected date: 09/12/2023 - COMPREHENSIVE METABOLIC PANEL; Future; Expected date: 09/12/2023 - BNP, NT-PRO; Future; Expected date: 09/12/2023 - DURABLE MEDICAL EQUIPMENT Lower extremity edema - CBC WITH WBC DIFFERENTIAL; Future; Expected date: 09/12/2023 - COMPREHENSIVE METABOLIC PANEL; Future; Expected date: 09/12/2023 - BNP, NT-PRO; Future; Expected date: 09/12/2023 Diastolic dysfunction - CBC WITH WBC DIFFERENTIAL; Future; Expected date: 09/12/2023 - COMPREHENSIVE METABOLIC PANEL; Future; Expected date: 09/12/2023 - BNP, NT-PRO; Future; Expected date: 09/12/2023 SOB (shortness of breath) - DURABLE MEDICAL EQUIPMENT Other orders - Spacer/Aero-Holding Chambers Device; Use with inhaler. - Albuterol Sulfate (2.5 MG/3ML) 0.083% Inhalation Nebulization Solution (Proventil); Inhale 1 Vialvia nebulizer every 4 hours as needed for Wheezing. Follow-up: Return if symptoms worsen or fail to improve. | Check-out note: Please cancel appt 09/14 Thank you Toshia Garza DO documented in this encounter Plan of Treatment Upcoming Encounters Date Type Department Care Team (Late st Contact Info) Description 09/12/2023 2:40 PM EST Imaging Radiology [address] [place] [address] Arrived 09/15/2023 9:00 AM EST Pharmacy Pharmacy Hematology Oncology [facility] [address] [place] [address] [facility] Hem/Onc [address] [place] [address] 09/15/2023 2:30 PM EST Office Visit Cardiology, [facility] 132 [facility] [place] [address] Kizzy Badillo PA-C [address] [place] [address] [place] [address] 09/18/2023 3:00 PM EST Office Visit Pulmonary Medicine, [facility] 132 [facility] [place] [address] Enrique Fernandez MD [address] [place] [address] 11/01/2023 2:30 PM EDT Cardiac Studies Cardiac Studies, [facility] [address] [place] [address] 11/14/2023 9:40 AM EDT Office Visit Family Practice [facility] [address] [place] [address] Toshia Garza DO [address] [place] [address] 12/06/2023 11:20 AM EDT Office Visit Dermatology [address] [place] [address] Toshia Mattson PA-C [address] [place] [address] [place] [address] 12/21/2023 2:00 PM EDT Office Visit Cardiology, [facility] [address] [facility] [place] [address] Huong Oseguera CRNP [facility] [place] [address] 01/03/2024 11:15 AM EDT Office Visit Hematology/Oncology [facility] 200 [facility] [place] [address] Zeeshan Choi MD 200 [facility] [place] [address] Pending Results Name Type Priority Associated Diagnoses Date /Time XR CHEST 2 VIEWS Medical Imaging Routine Hospital discharge follow-up COPD, group B, by GOLD 2017 classification ([facility]) 09/12/2023 2:28 PM EST Scheduled Orders Name Type Priority Associated Diagnoses Orde r Schedule CBC WITH WBC DIFFERENTIAL Lab Routine COPD, group B, by GOLD 2017 classification ([facility]) Lower extremity edema Diastolic dysfunction Expected: 09/12/2023 (Approximate), Expires: 09/12/2024 COMPREHENSIVE METABOLIC PANEL Lab Routine COPD, group B, by GOLD 2017 classification ([facility]) Lower extremity edema Diastolic dysfunction Expected: 09/12/2023 (Approximate), Expires: 09/12/2024 BNP, NT-PRO Lab Routine COPD, group B, by GOLD 2017 classification ([facility]) Lower extremity edema Diastolic dysfunction Expected: 09/12/2023 (Approximate), Expires: 09/11/2024 Health Maintenance Due Date Last Done Comments Pneumococcal Vaccine: 65+ Years (1 of 2 - PCV) 09/29/1941 Depression Screening 1947 DTaP,Tdap,and Td Vaccines (1 - Tdap) 09/29/1954 Zoster Vaccines (1 of 2) 09/29/1985 COVID-19 Vaccine (1 - 2022- season) 2023 Influenza Vaccine (FLU shot) (#1) 2023 CKD PHOS USE SMARTSET 52446 11/11/2023 11/10/2022 Albumin/Creatinine Ratio 05/11/2024 05/11/2023, 07/24 CKD HGB USE SMARTSET 13188 08/08/202408/08, 08/08/2023, 07/26/2023, Additional history exists O2 [...] Hospital discharge follow-up- Primary Other follow-up examination COPD, group B, by GOLD 2017 classification ([facility]) Lower extremity edema Edema Diastolic dysfunction Heart disease, unspecified SOB (shortness of breath) Shortness of breath documented in this encounter Care Teams Senior Technical Editor Relationship Specialty Start Date End Date Toshia Garza DO [address] [place] [address] PCP - General Family Medicine 12/07/22 documented as of this encounter"
--- OUTSIDE RECORDS SUMMARY | 2023-12-06 23:35 | External Medical Summary | Summary of Care ---
Author Name Unknown Organization [facility] Address [address] [place] [address] Phone [phone] Care Team Providers Care Drill Instructor Name Role Phone Toshia Reynaga DO Primary Care Provider [phone] Reason for Visit * Reason Comments Medication Management Encounter Details Date Type Department Care Team (Late st Contact Info) Description 08/28/2023 9:00 AM [facility] Pharmacy Pharmacy Hematology Oncology [facility] [address] [place], [place] [id number] [facility], [facility] Hem/Onc [address] [place], [place] [id number] Chronic ITP (idiopathic thrombocytopenia) ([facility])* Allergies Active Allergy Reactions Criticality Noted [...] the morning. 90 Tablet 2 08/02/2023 Active Furosemide 20 MG Oral Tablet (Lasix) Take 1 Tablet by mouth in the morning. For one week, then recheck labs and hold medicine.. 30 Tablet 0 08/08/2023 Active Spiriva Respimat 2.5 MCG/ACT Inhalation Aerosol Solution (Tiotropium [place] Monohydrate)Indicati ons:COPD, very severe (HCC) Inhale 2 Puffs by mouth in the morning. 4 g 3 08/15/2023 Active Doptelet 20 MG Oral Tablet (Avatrombopag Maleate)Indications: Chronic ITP (idiopathic thrombocytopenia) (HCC) Take 2 tablets (40mg) by mouth in morning. 60 Tablet 5 08/22/2023 Active Hospital, Clinic, or Other Facility Administered [...] Notes * Lee Ann Yepez, JACE - 08/28/2023 9:00 AM EST MEDICATION THERAPY MANAGEMENT AVATROMBOPAG TREATMENT PROGRESS NOTE Edilma Kennedy [phone] Patient Phone Numbers Son: Christian Communication: Spoke to: Patient Treatment: Medication: Avatrombopag (Doptelet) Indication/Staging/Diagnosis Code: ITP/D69.3 Dose: 40mg daily (DI 11/03/22) Administration: with food Start Date: November 2019 Primary Fast Food Attendant/Oncologist: Dr. Gabriel Choi Patient recently seen at [facility] for leg swelling/issues. Was put on medication for same. Patient experiencing issues with constipation and having hard BM. Advised patient per [facility], she can take Miralax (1 cap/2 times daily) and to call back in a few days if that does not provide relief. Patient voiced understanding. Patient also having issues with Spiriva Respimat 2.5 MCG/ACT Inhalation Aerosol Solution (Tiotropium [place] Monohydrate) but advised her that she will need to discuss with PCP. For monthly labs for Doptelet, patient would prefer to have cbcd drawn when she returns to on 09/14/23 for her leg. Patient aware of plan discussed today and had no further questions at this time. JACE Dawn Press Maintainer Pharmacy Hematology Oncology [facility] Medication Therapy Disease Management [facility] 08/28/23 9:38 AM Time Spent on Encounter: 6 - [...] Description 09/14/2023 1:00 PM EST Office Visit Family Practice [facility] [address] [place] [address] Lorri Pringle CRNP 132 [facility] [place] [address] 09/15/2023 9:00 AM EST Pharmacy Pharmacy Hematology Oncology [facility] [address] [place] [address] [facility], [facility] Hem/Onc [address] [place] [address] 11/01/2023 2:30 PM EDT Cardiac Studies Card[facility] Studies, [facility] [place] [address] 11/14/2023 9:40 AM EDT Office Visit Family Practice [facility] [address] [place] [address] Toshia Reynaga DO [address] [place] [address] 12/06/2023 11:20 AM EDT Office Visit Dermatology [address] [place] [address] Toshia Mattson PA-C [address] [place] [address] [place] [address] 12/21/2023 2:00 PM EDT Office Visit Cardiology, [facility] [address] [place] [address] Huong Oseguera CRNP [address] [place] [address] 01/03/2024 11:15 AM EDT Office Visit Hematology/Oncology [facility] 200 [facility] [place], [place] [address] Zeeshan Choi MD 200 [facility] [place] [address] Health Maintenance Due Date Last Done Comments COVID-19 Vaccine (#1) 04/01/1936 Pneumococcal Vaccine: 65+ Years (1 - PCV) 09/29/1941 Depression Screening 1947 DTaP,Tdap,and Td Vaccines (1 - Tdap) 09/29/1954 Zoster Vaccines (1 of 2) 09/29/1985 Influenza Vaccine (FLU shot) (#1) 2023 CKD PHOS USE SMARTSET 61254 11/11/2023 11/10/2022 Albumin/Creatinine Ratio 05/11/2024 05/11/2023, 07/24 CKD HGB USE SMARTSET 21168 08/08/202408/08, 08/08/2023, 07/26/2023, Additional history exists O2 [...] purpura documented in this encounter Care Teams Drill Instructor Relationship Specialty Start Date End Date Toshia Reynaga DO 132 [place] [address] PCP - General Family Medicine 12/07/22 documented as of this encounter
--- OUTSIDE RECORDS SUMMARY | 2023-12-06 23:35 | External Medical Summary | Summary of Care ---
Author Name Unknown Organization [facility] Address [address] [place] [address] Phone [phone] Care Team Providers Care Audio Operator Name Role Phone Toshia Reynaga DO Primary Care Provider [phone] Reason for Visit * Reason Comments Outpatient Testing Encounter Details Date Type Department Care Team (Late st Contact Info) Description 09/12/2023 3:10 PM EST Laboratory Laboratory, [facility] 132 [facility] [place] [address] [facility] [address] [place] [address] COPD, group B, by GOLD 2017 classification (HCC); Lower extremity edema; Diastolic dysfunction Allergies Active Allergy Reactions Criticality Noted Date [...] Respimat 2.5 MCG/ACT Inhalation Aerosol Solution (Tiotropium [place] Monohydrate)Indicati ons:COPD, very severe (HCC) Inhale 2 [...] Care Team (Late st Contact Info) Description 09/15/2023 9:[address] [facility] Pharmacy Pharmacy Hematology Oncology [facility] [address] [place] [address] [facility] [address] 09/15/2023 2:30 PM EST Office Visit Cardiology, [facility] [address] [facility] [place] [address] Kizzy Badillo PA-C [address] [place] [address] [place] [address] 09/18/2023 3:00 PM EST Office Visit Pulmonary Medicine, [facility] 132 [facility] [place] [address] Enrique Fernandez MD [address] [place] [address] 11/01/2023 2:30 PM EDT Cardiac Studies Cardiac Studies, [facility] 132 [facility] [place] [address] 11/14/2023 9:40 AM EDT Office Visit Family Practice [facility] 132 [facility] [place] [address] Toshia Reynaga DO 132 [facility] [place] [address] 12/06/2023 11:20 AM EDT Office Visit Dermatology [address] [place] [address] Toshia Mattson PA-C [address] [place] [address] [place] [address] 12/21/2023 2:00 PM EDT Office Visit Cardiology, [facility] [address] [facility] [place] [address] Huong Oseguera CRNP 132 [facility] [place] [address] 01/03/2024 11:15 AM EDT Office Visit Hematology/Oncology [facility] [place] 200 [facility] [place], [place] [address] Zeeshan Choi MD 200 [place] [address] Pending Results Name Type Priority Associated Diagnoses Date /Time CBC WITH WBC DIFFERENTIAL Lab Routine COPD, group B, by GOLD 2017 classification ([facility]) Lower extremity edema Diastolic dysfunction 09/12/2023 2:53 PM EST COMPREHENSIVE METABOLIC PANEL Lab Routine COPD, group B, by GOLD 2017 classification ([facility]) Lower extremity edema Diastolic dysfunction 09/12/2023 2:53 PM EST BNP, NT-PRO Lab Routine COPD, group B, by GOLD 2017 classification ([facility]) Lower extremity edema Diastolic dysfunction 09/12/2023 2:53 PM EST CBC Lab Routine COPD, group B, by GOLD 2017 classification ([facility]) Lower extremity edema Diastolic dysfunction 09/12/2023 2:53 PM EST DIFFERENTIAL, AUTOMATED Lab Routine COPD, group B, by GOLD 2017 classification ([facility]) Lower extremity edema Diastolic dysfunction 09/12/2023 2:53 PM EST Health Maintenance Due Date Last Done Comments Pneumococcal Vaccine: 65+ Years (1 of 2 - PCV) 09/29/1941 Depression Screening 1947 DTaP,Tdap,and Td Vaccines (1 - Tdap) 09/29/1954 Zoster Vaccines (1 of 2) 09/29/1985 COVID-19 Vaccine (1 - 2022- season) 2023 Influenza Vaccine (FLU shot) (#1) 2023 CKD PHOS USE SMARTSET 31036 11/11/2023 11/10/2022 Albumin/Creatinine Ratio 05/11/2024 05/11/2023, 07/24 CKD HGB USE SMARTSET 92430 08/08/202408/08, 08/08/2023, 07/26/2023, Additional history exists O2 [...] of this encounter Visit Diagnoses Diagnosis COPD, group B, by GOLD 2017 classification (HCC) Lower extremity edema Edema Diastolic dysfunction Heart disease, unspecified documented in this encounter Care Teams Audio Operator Relationship Specialty Start Date End Date Toshia Reynaga DO [address] [place] [address] PCP - General Family Medicine 12/07/22 documented as of this encounter
--- OUTSIDE RECORDS SUMMARY | 2023-12-06 23:35 | External Medical Summary ---
Author Name Unknown Address Unknown Organization [id number]:[facility] [place] [address] - [address] [place] [address] Laboratory Report Ordering Provider Test Date Status JAMSHID LUEVANO 09/18/2023 15:51:46 Final Observation Date Value Abnormality Reference (Units ) Status BUN 09/18/2023 15:51:46 25 Above high normal 6-20 (mg/dL) Final Creatinine 09/18/2023 15:51:46 1.3 Above high normal 0.5-1.0 (mg/dL) Final Glomerular filtration rate/1.73 sq M.predicted [Volume Rate/Area] in Serum, Plasma or Blood by Creatinine-based formula (CKD-EPI) 09/18/2023 15:51:46 42 Below low normal >=60 (mL/min) Final eGFR is calculated based on the CKD-EPI 2020 equation SODIUM 09/18/2023 15:51:46 145 135-146 (m mol/L) Final Potassium 09/18/2023 15:51:46 3.9 3.5-5.1 (m mol/L) Final Cl 09/18/2023 15:51:46 103 98-107 (mm ol/L) Final CO2 09/18/2023 15:51:46 28 22-32 (mmo l/L) Final Anion gap 09/18/2023 15:51:46 14 7-15 (mmol /L) Final Glucose 09/18/2023 15:51:46 94 70-120 (mg /dL) Final Calcium 09/18/2023 15:51:46 9.3 8.4-10.2 ( mg/dL) Final Performing Location [facility] [place] 0 - [address] [place] [address]
--- OUTSIDE RECORDS SUMMARY | 2023-12-06 23:35 | External Medical Summary ---
Author Name Unknown Address Unknown Organization K0G:LABORATORY [place] [address] - [address] [place] [address] Laboratory Report Ordering Provider Test Date Status RONAK LYNCH 09/12/2023 14:53:26 Final Observation Date Value Abnormality Reference (Units ) Status BUN 09/12/2023 14:53:26 27 Above high normal 6-20 (mg/dL) Final Creatinine 09/12/2023 14:53:26 1.3 Above high normal 0.5-1.0 (mg/dL) Final Glomerular filtration rate/1.73 sq M.predicted [Volume Rate/Area] in Serum, Plasma or Blood by Creatinine-based formula (CKD-EPI) 09/12/2023 14:53:26 40 Below low normal >=60 (mL/min) Final eGFR is calculated based on the CKD-EPI 2020 equation SODIUM 09/12/2023 14:53:26 143 135-146 (m mol/L) Final Potassium 09/12/2023 14:53:26 4.3 3.5-5.1 (m mol/L) Final Cl 09/12/2023 14:53:26 101 98-107 (mm ol/L) Final CO2 09/12/2023 14:53:26 28 22-32 (mmo l/L) Final Anion gap 09/12/2023 14:53:26 14 7-15 (mmol /L) Final Glucose 09/12/2023 14:53:26 92 70-120 (mg /dL) Final Albumin 09/12/2023 14:53:26 4.3 3.8-5.0 (g /dL) Final AST (Aspartate aminotransferase) 09/12/2023 14:53:26 28 10-35 (U/L) Final Alk Phos 09/12/2023 14:53:26 55 35-130 (U/ L) Final Bilirubin, Total 09/12/2023 14:53:26 0.9 <=1 .2 (mg/dL) Final Calcium 09/12/2023 14:53:26 9.5 8.4-10.2 ( mg/dL) Final Protein 09/12/2023 14:53:26 6.6 6.0-8.3 (g /dL) Final ALT (Alanine aminotransferase) 09/12/2023 14:53:26 24 10-35 (U/L) Final Performing Location LABORATORY [place] [address] - [address] [facility] [address]
--- OUTSIDE RECORDS SUMMARY | 2023-12-06 23:35 | External Medical Summary ---
Author Name Unknown Address Unknown Organization K01:LABORATORY [facility] - [address] [place] [address] Laboratory Report Ordering Provider Test Date Status RONAK LYNCH 09/12/2023 14:53:26 Final Exclude Heart Failure: <300 pg/mL
Diagnose Heart Failure:
Age <50 yr: >450 pg/mL
50-75 yr: >900 pg/mL
>75 yr: >1800 pg/mL
GFR is 30-59 mL/min: >1200 pg/mL or Age- adjusted values
GFR <30 mL/min: do not use, not reliable

Prognostic threshold: 1000 pg/mL Observation Date Value Abnormality Reference (Units ) Status BNP, Pro-hormone 09/12/2023 14:53:26 1309 Above high no rmal <300 (pg/mL) Final Performing Location LAB[facility]ATORY [facility] - [address] [place] [address]
--- OUTSIDE RECORDS SUMMARY | 2023-12-06 23:35 | External Medical Summary | Summary of Care ---
Author Name Unknown Organization [facility] Address [address] [place] [address] Phone [phone] Care Team Providers Care Counter Person Name Role Phone Toshia Reynaga DO Primary Care Provider [phone] Reason for Visit * Reason Comments Medication Management Encounter Details Date Type Department Care Team (Late st Contact Info) Description 09/15/2023 9:00 AM [facility] Pharmacy Pharmacy Hematology Oncology [facility] [address] [place], [place] [id number] [facility] Hem/Onc [address] [place], [place] [id number] Chronic ITP (idiopathic thrombocytopenia) (HCC)* Allergies Active Allergy Reactions Criticality Noted Date Comments Lisinopril Other (Please comment) 05/06/2022 Burning in throat documented as of this encounter (statuses as of 09/14/2023) Medications Medication Sig Dispensed Refills Start Date [...] Respimat 2.5 MCG/ACT Inhalation Aerosol Solution (Tiotropium [place] Monohydrate)Indicati ons:COPD, very severe (HCC) Inhale 2 [...] as of this encounter (statuses as of 09/14/2023) Active Problems Problem Noted Date Diagnosed Date [...] as of this encounter (statuses as of 09/14/2023) Resolved Problems Problem Noted Date Diagnosed Date Resolved Date Chronic obstructive pulmonary disease 05/11/2023 06/08/2023 Overview: Per COPD GOLD Classification documented as of this encounter (statuses as of 09/14/2023) Immunizations No known immunizationsdocumented as of this [...] this encounter Progress Notes * Winter Casiano, [facility] - 09/14/2023 2:13 PM EST MEDICATION THERAPY MANAGEMENT AVATROMBOPAG TREATMENT PROGRESS NOTE Edilma Kennedy [phone] Patient Phone Numbers Son: Christian Communication: Spoke to: Patient Treatment: Medication: Avatrombopag (Doptelet) Indication/Staging/Diagnosis Code: ITP/D69.3 Dose: 40mg daily (DI 11/03/22) Administration: with food Start Date: November 2019 Primary Construction Representative/Oncologist: Dr. Gabriel Choi Additional therapy: Rutiximab x 2 Interval History: Pt admitted to [facility] 05/23/22 for bleeding and PLT < 10K and transferred to [facility] 05/24/22 and discharged 06/18/22 Per OV 03/09/23, lab monitoring extended to monthly Admitted to [facility] 09/01/23-09/06/23 for CHF/COPD exacerbation - avatrombopag continued during admission despite PLT 718K 09/01/23 Denies s/s of VTE Changes to medication list since last visit? No Assessment and plan: PLT significantly above goal (50-200K) Hgb low but improving. Will monitor closely All other labs stable Per discussion with Gomez Rosales RESISTANCE WELDER, HOLD avatrombopag due to thrombosis Pt to walk into lab 09/18 after pulm OV (ordered future labs) Assessment of compliance: compliant Dose adjustment needed based on lab or adverse drug reaction? Yes, HOLD Follow up: 09/19 Winter Casiano, PharmD, BCOP Clinical Pharmacist, [facility] Oral Chemotherapy [facility] 09/14/2023, 2:26 PM Pertinent labs: Latest Reference Range & Units 07/26/23 10:55 08/08/23 10:06 09/12/23 14:53 WBC 4.00 - 10.80 K/uL 8.50 8.54 12.29 (H) HGB 12.0 - 15.3 g/dL 8.8 (L) 8.7 (L) 9.3 (L) HCT 36.0 - 45.2 % 27.3 (L) 28.1 (L) 29.7 (L) MCV 81.5 - 97.5 fL 96.5 96.9 97.7 PLT 140 - 400 K/uL 373 455 (H) 919 (H) Absolute Neutrophils 1.80 - 7.70 K/uL 5.56 6.24 8.88 (H) Time Spent on Encounter: 11 - 15 minutes Encounter Group: Hematology Encounter Interventions Item Category: Oral Chemotherapy Other: Avatrombopag Problem/Rationale: Safety: Adverse medication event - Undesirable effect Pharmacist Intervention(s): Clarification with Provider, Lab monitoring, Medication held, Orders labs, and Toxicity monitoring Magnitude of Intervention: Modification of medication for asymtomatic patients (Level 2) documented in this encounter Plan of Treatment Upcoming Encounters Date Type Department Care Team (Late st Contact Info) Description 09/15/2023 2:30 PM EST Office Visit Cardiology, [facility] [address] [facility] [place] [address] Kizzy Badillo PA-C [address] [facility] [place] [address] 09/18/2023 3:00 PM EST Office Visit Pulmonary Medicine, [facility] [address] [facility] [place] [address] [facility] [address] [facility] [address] 09/19/2023 9:00 AM EST Pharmacy Pharmacy Hematology Oncology [facility] [address] [place] [address] [facility], [facility] Hem/Onc [address] [place] [address] 11/01/2023 2:30 PM EDT Cardiac Studies Cardiac Studies, [facility] [address] [facility] [place] [address] 11/14/2023 9:40 AM EDT Office Visit Family Practice [facility] [address] [facility] [place] [address] Toshia Reynaga DO [address] [place] [address] 12/06/2023 11:20 AM EDT Office Visit Dermatology [address] [place] [address] Toshia Mattson PA-C [address] [place] [address] [place] [address] 12/21/2023 2:00 PM EDT Office Visit Cardiology, [facility] [address] [place] [address] Huong Oseguera CRNP [address] [place] [address] 01/03/2024 11:15 AM EDT Office Visit Hematology/Oncology [facility] [address] [place] [phone] Zeeshan Choi MD [address] [place] [address] Health Maintenance Due Date Last Done Comments Pneumococcal Vaccine: 65+ Years (1 of 2 - PCV) 09/29/1941 Depression Screening 1947 DTaP,Tdap,and Td Vaccines (1 - Tdap) 09/29/1954 Zoster Vaccines (1 of 2) 09/29/1985 COVID-19 Vaccine (1 - 2022- season) 2023 Influenza Vaccine (FLU shot) (#1) 2023 CKD PHOS USE SMARTSET 45001 11/11/2023 11/10/2022 Albumin/Creatinine Ratio 05/11/2024 05/11/2023, 07/24 O2 ASSESSMENT COMPLETED IN PAST YEAR FOR COPD 08/15/2024 08/15/2023 CKD HGB USE SMARTSET 53488 09/12/202409/12, 09/12/2023, 08/08/2023, Additional history exists DXA Scan 12/07/2032 12/07/2022 [...] purpura documented in this encounter Care Teams Counter Person Relationship Specialty Start Date End Date Toshia Reynaga DO [address] [place] [address] PCP - General Family Medicine 12/07/22 documented as of this encounter
--- OUTSIDE RECORDS SUMMARY | 2023-12-06 23:35 | External Medical Summary | Summary of Care ---
Author Name Unknown Organization [facility] Address [address] [place] [address] Phone [phone] Care Team Providers Care Jewel Stringer Name Role Phone Toshia Reynaga DO Primary Care Provider [phone] Reason for Visit * Reason Comments Hospital Follow-Up Encounter Details Date Type Department Care Team (Late st Contact Info) Description 09/15/2023 2:30 PM EST Office Visit Cardiology, [facility] [address] [facility] [place] [address] Kizzy Badillo PA-C [address] [place] [address] Chronic heart failure with preserved ejection fraction (HCC)*; Hospital discharge follow-up; HTN, goal below 140/90; Premature atrial contraction Allergies Active Allergy Reactions Criticality Noted Date Comments Lisinopril Other (Please comment) 05/06/2022 Burning in throat documented as of this encounter (statuses as of 09/15/2023) Medications Medication Sig Dispensed Refills Start Date [...] of water or juice. 507 g 3 10/03/202 2 Active Albuterol Sulfate HFA 108 (90 [...] the morning. 90 Tablet 2 4 Active Losartan Potassium 100 MG Oral Tablet (Cozaar)Indicatio ns:HTN, goal below 140/90 Take 1 Tablet by mouth in the morning. 90 Tablet 2 4 Active Spiriva Respimat 2.5 MCG/ACT Inhalation Aerosol Solution (Tiotropium [place] Monohydrate)Indic ations:COPD, very severe (HCC) Inhale 2 Puffs by mouth in the morning. 4 g 3 4 Active Doptelet 20 MG Oral Tablet (Avatrombopag Maleate)Indicatio ns:Chronic ITP (idiopathic thrombocytopenia) (HCC) Take 2 tablets (40mg) by mouth in morning. 60 Tablet 5 4 Active Additional Information Patient not taking.Reported on 09/15/2023 Spacer/Aero-Holdi ng Chambers Device Use with inhaler. 1 Each 0 4 Active Albuterol Sulfate (2.5 MG/3ML) 0.083% Inhalation Nebulization Solution (Proventil) Inhale 1 Vial via nebulizer every 4 hours as needed for Wheezing. 3 mL 1 4 Active Furosemide 40 MG Oral Tablet (Lasix) Take 1 Tablet by mouth daily. 90 Tablet 3 4 Active Lansoprazole 30 MG Oral Capsule Delayed Release (Prevacid) 1 Capsule. 0 2 09/15/19 24 Discontinued(Pat ient preference/disco ntinuation) hydroCHLOROthiazi de 12.5 MG Oral Tablet (Hydrodiuril)Sindy cations:HTN, goal below 140/90 TAKE 1 TABLET EVERY MORNING 90 Tablet 1 3 09/15/19 24 Discontinued Furosemide 20 MG Oral Tablet (Lasix) Take 1 Tablet by mouth in the morning. For one week, then recheck labs and hold medicine.. 30 Tablet 0 4 09/15/19 24 Discontinued Hospital, Clinic, or Other Facility Administered Medication Ordered Dose Route Frequency Start Date End Date Status Albuterol Sulfate (Proventil) (2.5 MG/3ML) 0.083% inhalation solution 2.5 mgIndications:COPD, severity to be determined (HCC) 2.5 mg NEBULIZER ONCE PRN 02/17/2023 02/17/2024 Active documented as of this encounter (statuses as of 09/15/2023) Active Problems Problem Noted Date Diagnosed Date [...] as of this encounter (statuses as of 09/15/2023) Resolved Problems Problem Noted Date Diagnosed Date Resolved Date Chronic obstructive pulmonary disease 05/11/2023 06/08/2023 Overview: Per COPD GOLD Classification documented as of this encounter (statuses as of 09/15/2023) Immunizations No known immunizationsdocumented as of this [...] Sign Reading Time Taken Comments Blood Pressure 114/54 09/15/2023 2:32 PM EST Pulse 64 09/15/2023 2:32 PM EST Temperature - - Respiratory Rate 16 09/15/2023 2:32 PM EST Oxygen Saturation - - Inhaled Oxygen Concentration - - Weight 50.6 kg (111 lb 8 oz) 09/15/2023 2:32 PM EST Height - - Body Mass Index 21.78 08/08/2023 9:11 AM EST documented in this encounter Progress Notes * Kizzy Badillo PA-C - 09/15/2023 2:24 PM EST 09/15/2023 Cardiology Follow Up Primary Site Supervising Technical Operator: LUIS ANTONIO Cardiac Problems: HTN PAC's/SVT Diastolic dysfunction Chronic ITP CKD Former tobacco abuse, likely underlying COPD HPI: Edilma Kennedy is a 87 year old female who presents for hospital discharge follow up. Admitted to [facility] 09/01/23- 09/06/23. Presented with cough, congestion, shortness of breath, edema. Admitted with acute on chronic heart failure, COPD exacerbation. Found to have small right pleuraleffusions. Discharged on furosemide 40 mg daily. Since hospitalization has been feeling ok. Still has some leg swelling. Feels short of breath at times, uses inhaler which seems to help. Denies chest pain, palpitations, PND, orthopnea, lightheadedness, syncope. She thinks she is still taking furosemide 20 mg daily, but unsure. Notes she lives with son, both cook meals. Eats out about once a week. Was using salt, but now stopped since hospitalization. Eats some frozen meals. Drinks about one bottle of water daily. Scheduled for follow up with pulmonology and heme/onc. REVIEW OF SYSTEMS: See HPI for pertinent positives. All others negative other than those noted in the HPI. CONSTITUTIONAL: No change in weight, No weakness, No fatigue and No fevers, No sweats or chills. PULMONARY: No cough, sputum, or hemoptysis, No wheezing, No shortness of breath and No recent change in breathing. CARDIOVASCULAR: No chest pain, + dyspnea on exertion, + edema, No palpitations and No syncope. GASTROINTESTINAL: [...] Respimat 2.5 MCG/ACT Inhalation Aerosol Solution (Tiotropium [place] Monohydrate) Inhale 2 Puffs by mouth in the morning. 4 g 3 Spacer/Aero-Holding Chambers Device Use with inhaler. 1 Each 0 Albuterol Sulfate (2.5 MG/3ML) 0.083% Inhalation Nebulization Solution (Proventil) Inhale 1 Vial via nebulizer every 4 hours as needed for Wheezing. 3 mL 1 Furosemide 40 MG Oral Tablet (Lasix) Take 1 Tablet by mouth daily. 90 Tablet 3 Doptelet 20 MG Oral Tablet (Avatrombopag Maleate) Take 2 tablets (40mg) by mouth in morning. (Patient not taking: Reported on 09/15/2023) 60 Tablet 5 Current Facility-Administered Medications Medication Dose Route Frequency [...] Never Drug use: Never OBJECTIVE/PHYSICAL EXAMINATION: BP 114/54 (BP Site: Left Arm, BP Position: Sitting, BP Cuff Size: Regular) | Pulse 64 | Resp 16 | Wt 50.6 kg (111 lb 8 oz) | BMI 21.78 kg/m | BSA 1.46 m Wt Readings from Last 3 Encounters: 09/15/23 50.6 kg (111 lb 8 oz) 09/12/23 50.8 kg (112 lb) 08/15/23 55.2 kg (121 lb 12.8 oz) General: No acute distress. A+Ox3. HEENT: [...] masses or organomegaly. No abdominal bruits. Extremities: 2+ right LE edema. 1+ left LE edema. No clubbing or cyanosis. Pulses: radial=2/4, posterior tibial=2/4, dorsalis pedis = 2/4. NEURO: No focal deficits. PSYCH: Appropriate affect and insight. DATA Labs & Imaging Reviewed Below: [facility] 01/2023 Patient had a min HR of [...] 120 bpm. Isolated SVEs were frequent (7.1%, [address]), SVE Couplets wereoccasional (1.3%, 7522), and SVE [...] Zio patch monitor for further assessment. ASSESSMENT/PLAN: 87 year old female 1. Chronic heart failure with preserved ejection fraction (HCC) 2. Hospital discharge follow-up - presents with continued edema, weight stable - increase furosemide to 40 mg daily, labs next week - heart failure education provided, sodium and fluid restriction discussed, recommend to monitor daily weights 3. HTN, goal below 140/90 - controlled - continue amlodipine 10 mg daily, losartan 100 mg daily 4. Premature atrial contraction - continue bisoprolol 5 mg daily DISPOSITION: Follow up 1 month or sooner if symptoms worsen/fail to improve. All questions were answered to the patients satisfaction. Patient advised to report to ED with any and all emergencies. The patient agrees to the above plan and will call with additional questions or concerns. Kizzy Badillo PA-C Cardiology, [facility] [address] [facility] [place] [address] I spent a total of 40 minutes on the date of service in preparation, delivery, and documentation ofthe care provided to Edilma Kennedy excluding any time spent in the performance of separately billed services. This chart was completed in part utilizing [employer] Speech Voice Recognition Software. Grammatical errors, random [...] documented in this encounter Nursing Notes * Lili Palacio CMA - 09/15/2023 2:22 PM EST Examination Room: 7 Name: Edilma Kennedy Date of : (1935). Reason for Visit: Hospital f/u Interim Hospitalization(s): [facility] d/c 09/06/23 Problems/Concerns: denies Chest Pain/SOB: Denies CP. SOBOE, usually worse in AM and before bed. Improves with inhaler use. [facility] Discussed: Not applicable My [employer] is a way you can talk to [...] Team (Late st Contact Info) Description 09/18/2023 3:00 PM EST Office Visit Pulmonary Medicine, [facility] [address] [facility] [place] [address] Enrique Fernandez MD [address] [facility] [place] [address] 09/19/2023 9:00 AM EST Pharmacy Pharmacy Hematology Oncology [facility] [address] [place] [address] [facility], [facility] Hem/Onc [address] [place] [address] 10/04/2023 10:30 AM EDT Office Visit Cardiology, [facility] [address] [facility] [place] [address] Kizzy Badillo PA-C [address] [place] [address] [place] [address] 11/01/2023 2:30 PM EDT Cardiac Studies Cardiac Studies, [facility] [address] [facility] [place] [address] 11/14/2023 9:40 AM EDT Office Visit Family Practice [facility] [address] [facility] [place] [address] Toshia Reynaga DO [address] [place] [address] 12/06/2023 11:20 AM EDT Office Visit Dermatology [address] [place] [address] Tohsia Mattson PA-C [address] [place] [address] [place] [address] 12/21/2023 2:00 PM EDT Office Visit Cardiology, [facility] [address] [facility] [place] [address] Huong Oseguera CRNP [address] [place] [address] 01/03/2024 11:15 AM EDT Office Visit Hematology/Oncology [facility] [address] [facility] [place] [phone] Zeeshan Choi MD [address] [facility] [place] [address] Scheduled Orders Name Type Priority Associated Diagnoses Orde r Schedule BASIC METABOLIC PANEL Lab Routine Chronic heart failure with preserved ejection fraction (HCC) Expected: 09/15/2023, Expires: 09/15/2024 Health Maintenance Due Date Last Done Comments Pneumococcal Vaccine: 65+ Years (1 of 2 - PCV) 09/29/1941 Depression Screening 1947 DTaP,Tdap,and Td Vaccines (1 - Tdap) 09/29/1954 Zoster Vaccines (1 of 2) 09/29/1985 COVID-19 Vaccine (1 - 2022- season) 2023 Influenza Vaccine (FLU shot) (#1) 2023 CKD PHOS USE SMARTSET 14491 11/11/2023 11/10/2022 Albumin/Creatinine Ratio 05/11/2024 05/11/2023, 07/24 O2 ASSESSMENT COMPLETED IN PAST YEAR FOR COPD 08/15/2024 08/15/2023 CKD HGB USE SMARTSET 37069 09/12/202409/12, 09/12/2023, 08/08/2023, Additional history exists DXA [...] failure with preserved ejection fraction (HCC)- Primary Hospital discharge follow-up Other follow-up examination HTN, goal below 140/90 Unspecified essential hypertension Premature atrial contraction Supraventricular premature beats documented in this encounter Care Teams Jewel Stringer Relationship Specialty Start Date End Date Toshia Reynaga DO [address] [place] [address] PCP - General Family Medicine 12/07/22 documented as of this encounter"
--- OUTSIDE RECORDS SUMMARY | 2023-12-06 23:35 | External Medical Summary | Summary of Care ---
Author Name Unknown Organization [facility] Address [address] [place] [address] Phone [phone] Care Team Providers Care Metal Tile Setter Name Role Phone Toshia Reynaga DO Primary Care Provider [phone] Encounter Details Date Type Department Care Team (Late st Contact Info) Description 09/14/2023 Orders Only Hematology/Oncology [facility] [place] [address] [facility] [place] [address] Zeeshan Choi MD [address] [place] [address] Chronic ITP (idiopathic thrombocytopenia) ([facility])* Allergies Active Allergy Reactions Criticality Noted [...] Respimat 2.5 MCG/ACT Inhalation Aerosol Solution (Tiotropium [place] Monohydrate)Indicati ons:COPD, very severe (HCC) Inhale 2 [...] st Contact Info) Description 09/15/2023 9:00 AM EST Pharmacy Pharmacy Hematology Oncology [facility] [address] [place] [address] [facility], [facility] Hem/Onc [address] [place] [address] Chronic ITP (idiopathic thrombocytopenia) (HCC)* 09/15/2023 2:30 PM EST Office Visit Cardiology, [address] [place] [address] Kizzy Badillo PA-C [address] [facility] [place] [address] 09/18/2023 3:00 PM EST Office Visit Pulmonary Medicine, [address] [place] [address] Enrique Fernandez MD [address] [place] [address] 09/19/2023 9:00 AM EST Pharmacy Pharmacy Hematology Oncology [facility] [address] [place] [address] [facility], [facility] Hem/Onc [address] [place] [address] 11/01/2023 2:30 PM EDT Cardiac Studies Card[address] Studies, [address] [address] 11/14/2023 9:40 AM EDT Office Visit Family Practice [facility] 132 [facility] [place] [address] Toshia Reynaga DO 132 [facility] [place] [address] 12/06/2023 11:20 AM EDT Office Visit Dermatology [address] [place] [address] Toshia Mattson PA-C [address] [place] [address] [place] [address] 12/21/2023 2:00 PM EDT Office Visit Cardiology, [facility] [address] [place] [address] Huong Oseguera CRNP [address] [place] [address] 01/03/2024 11:15 AM EDT Office Visit Hematology/Oncology [facility] [address] [facility] [place] [address] Zeeshan Choi MD [address] [facility] [place] [address] Scheduled Orders Name Type Priority Associated Diagnoses Orde r Schedule CBC WITH WBC DIFFERENTIAL Lab STAT Chronic ITP (idiopathic thrombocytopenia) (HCC) Expected: 09/18/2023, Expires: 10/13/2023 Health Maintenance Due Date Last Done Comments Pneumococcal Vaccine: 65+ Years (1 of 2 - PCV) 09/29/1941 Depression Screening 1947 DTaP,Tdap,and Td Vaccines (1 - Tdap) 09/29/1954 Zoster Vaccines (1 of 2) 09/29/1985 COVID-19 Vaccine (1 - 2022-24 season) 2023 Influenza Vaccine (FLU shot) (#1) 2023 CKD PHOS USE SMARTSET 38434 11/11/2023 11/10/2022 Albumin/Creatinine Ratio 05/11/2024 05/11/2023, 07/24 O2 ASSESSMENT COMPLETED IN PAST YEAR FOR COPD 08/15/2024 08/15/2023 CKD HGB USE SMARTSET 97198 09/12/202409/12, 09/12/2023, 08/08/2023, Additional history exists DXA [...] (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
--- OUTSIDE RECORDS SUMMARY | 2023-12-06 23:35 | External Medical Summary | Summary of Care ---
Author Name Unknown Organization [facility] Address [address] [place] [address] Phone [phone] Care Team Providers Care Sports Centre Manager Name Role Phone Toshia Garza DO Primary Care Provider [phone] Reason for Visit * Reason Onset Date [...] 2:00 PM EST Office Visit Family Practice [facility] [address] Toshia [facility] [address] Hospital discharge follow-up*; COPD, group B, by [...] Respimat 2.5 MCG/ACT Inhalation Aerosol Solution (Tiotropium [place] Monohydrate)Indicati ons:COPD, very severe (HCC) Inhale 2 [...] Admission: Patient was recently admitted to [facility] on 09/01[facility]23. The date of discharge was [...] (I believe this was done while in [facility]- will try to obtain) Kidney lesion - [...] below 140/90 I10 Chronic ITP (idiopathic thrombocytopenia) ([facility]) D69.3 Constipation K59.00 Protein-calorie malnutrition ([facility]) E46 Stage 3a chronic kidney disease ([facility]) N18.31 Hx of nonmelanoma skin cancer Z85.828 COPD, group B, by GOLD 2017 classification ([facility]) J44.9 Current Outpatient Medications Medication Sig Dispense [...] Respimat 2.5 MCG/ACT Inhalation Aerosol Solution (Tiotropium [place] Monohydrate) Inhale 2 Puffs by mouth in [...] performed by Paula Callahan MD at OR [facility] Review of patient's allergies indicates: Allergen Reactions [...] Center [place] [address] [place] [address] [facility], [facility] Hem/Onc [address] [place] [address] 09/15/2023 2:30 PM EST Office Visit Cardiology, [facility] 132 [facility] [place] [address] Kizzy Badillo PA-C [address] [place] [address] [place] [address] 09/18/2023 3:00 PM EST Office Visit Pulmonary Medicine, [facility] 132 [facility] [place] [address] Enrique Fernandez MD [address] [place] [address] 11/01/2023 2:30 PM EDT Cardiac Studies Cardiac Studies, [facility] [address] [place] [address] 11/14/2023 9:40 AM EDT Office Visit Family Practice [facility] [address] [place] [address] Toshia Garza DO [address] [place] [address] 12/06/2023 11:20 AM EDT Office Visit Dermatology [address] [place] [address] Toshia Mattson PA-C [address] [place] [address] [place] [address] 12/21/2023 2:00 PM EDT Office Visit Cardiology, [facility] [address] [place] [address] Huong Oseguera CRNP [address] [place] [address] 01/03/2024 11:15 AM EDT Office Visit Hematology/Oncology [facility] [place] 200 [facility] [place] [id number] Zeeshan Choi MD 200 [facility] [place] [address] Pending Results Name Type Priority Associated Diagnoses Date /Time XR CHEST 2 VIEWS Medical Imaging Routine Hospital discharge follow-up COPD, group B, by GOLD 2017 classification ([facility]) 09/12/2023 2:28 PM EST Scheduled Orders Name Type Priority Associated Diagnoses Orde r Schedule CBC WITH WBC DIFFERENTIAL Lab Routine COPD, group B, by GOLD 2017 classification ([facility]) Lower extremity edema Diastolic dysfunction Expected: 09/12/2023 (Approximate), Expires: 09/12/2024 COMPREHENSIVE METABOLIC PANEL Lab Routine COPD, group B, by GOLD 2017 classification ([facility]) Lower extremity edema Diastolic dysfunction Expected: 09/12/2023 (Approximate), Expires: 09/12/2024 BNP, NT-PRO Lab Routine COPD, group B, by GOLD 2017 classification (HCC) Lower extremity edema Diastolic dysfunction Expected: 09/12/2023 (Approximate), Expires: 09/11/2024 Health Maintenance Due Date Last Done Comments Pneumococcal Vaccine: 65+ Years (1 of 2 - PCV) 09/29/1941 Depression Screening 1947 DTaP,Tdap,and Td Vaccines (1 - Tdap) 09/29/1954 Zoster Vaccines (1 of 2) 09/29/1985 COVID-19 Vaccine (1 - 2022-24 season) 2023 Influenza Vaccine (FLU shot) (#1) 2023 CKD PHOS USE SMARTSET 67220 11/11/2023 11/10/2022 Albumin/Creatinine Ratio 05/11/2024 05/11/2023, 07/24 CKD HGB USE SMARTSET 11877 08/08/202408/08, 08/08/2023, 07/26/2023, Additional history exists O2 [...] breath documented in this encounter Care Teams Sports Centre Manager Relationship Specialty Start Date End Date Toshia Garza DO [address] [place] [address] PCP - General Family Medicine 12/07/22 documented as of this encounter"
--- OUTSIDE RECORDS SUMMARY | 2023-12-06 23:35 | External Medical Summary ---
Author Name Unknown Address Unknown Organization K0G:[facility] [address] - [address] [place] [address] Laboratory Report Ordering Provider Test Date Status RAMU VASQUES 09/18/2023 15:51:46 Final Observation Date Value Abnormality Reference (Units ) Status WBC, Total 09/18/2023 15:51:46 11.39 Above high normal 4 .00-10.80 (K/uL) Final RBC 09/18/2023 15:51:46 3.03 3.85-5.15 (M/uL) Final Hemoglobin 09/18/2023 15:51:46 9.3 Below low normal 12 .0-15.3 (g/dL) Final HCT 09/18/2023 15:51:46 29.4 Below low normal 36. 0-45.2 (%) Final MCV 09/18/2023 15:51:46 97.0 81.5-97.5 (fL) Final MCH 09/18/2023 15:51:46 30.7 27.0-34.0 (pg) Final MCHC 09/18/2023 15:51:46 31.6 32.0-36.0 (g/dL) Final RDW 09/18/2023 15:51:46 15.9 11.5-15.5 (%) Final Platelets 09/18/2023 15:51:46 584 Above high normal 14 0-400 (K/uL) Final MPV 09/18/2023 15:51:46 10.5 6.6-11.1 ( fL) Final Performing Location [facility] [address] [place] [address]
--- OUTSIDE RECORDS SUMMARY | 2023-12-06 23:36 | External Medical Summary | Summary of Care ---
Author Name Unknown Organization [facility] Address [address] [place] [address] Phone [phone] Care Team Providers Care Gaming Associate Name Role Phone Toshia Reynaga DO Primary Care Provider [phone] Reason for Visit * Reason Comments Post-Op Excision of face/sca lp Encounter Details Date Type Department Care Team (Latest Contact Info) Description 08/14/2023 10:15 AM EST Office Visit General Surgery, [facility] 132 [facility] [place] [address] Paula Callahan MD 132 [facility] [place] [address] Postoperative follow-up* Allergies Active Allergy Reactions Criticality Noted Date Comments Lisinopril Other (Please comment) 05/06/2022 Burning in throat documented as of this encounter (statuses as of 08/14/2023) Medications Medication Sig Dispensed Refills Start Date [...] Release (Prevacid) 1 Capsule. 0 06/18/2022 Active Avatrombopag Maleate 20 MG Oral TabletIndications:Ch ronic ITP (idiopathic thrombocytopenia) (HCC) Take 2 tablets (40mg) by mouth in morning. 60 Tablet 5 03/03/2023 Active Albuterol Sulfate HFA 108 (90 Base) [...] Respimat 2.5 MCG/ACT Inhalation Aerosol Solution (Tiotropium [place] Monohydrate)Indicati ons:COPD, very severe (HCC) Inhale 2 Puffs by mouth in the morning. 4 g 3 08/07/2023 Active Furosemide 20 MG Oral Tablet (Lasix) Take 1 Tablet by mouth in the morning. For one week, then recheck labs and hold medicine.. 30 Tablet 0 08/08/2023 Active Hospital, Clinic, or Other Facility Administered Medication Ordered Dose Route Frequency Start Date End Date Status Albuterol Sulfate (Proventil) (2.5 MG/3ML) 0.083% inhalation solution 2.5 mgIndications:COPD, severity to be determined (HCC) 2.5 mg NEBULIZER ONCE PRN 02/17/2023 02/17/2024 Active documented as of this encounter (statuses as of 08/14/2023) Active Problems Problem Noted Date Diagnosed Date [...] as of this encounter (statuses as of 08/14/2023) Resolved Problems Problem Noted Date Diagnosed Date Resolved Date Chronic obstructive pulmonary disease 05/11/2023 06/08/2023 Overview: Per COPD GOLD Classification documented as of this encounter (statuses as of 08/14/2023) Immunizations No known immunizationsdocumented as of this [...] on file documented as of this encounter Nursing Notes * Yari Gurrola LPN - 08/14/2023 10:01 AM EST Chief Complaint Patient presents with Post-Op Excision of face/scalp Patient is not having any problems, is ready for have sutures. documented in this encounter Plan of Treatment Upcoming Encounters Date Type Department Care Team (Late st Contact Info) Description 08/15/2023 1:00 PM EST Office Visit [facility] [address] [place] [address] Raysa Watson CRNP [address] [place] [address] 08/28/2023 9:00 AM [facility] Pharmacy Pharmacy Hematology Oncology [facility] [address] [place] [address] [facility], [facility] Hem/Onc [address] [place] [address] 12/06/2023 11:20 AM EDT Office Visit Dermatology [address] [place] [address] Toshia Mattson PA-C [address] [place] [address] [place] [address] 12/21/2023 2:00 PM EDT Office Visit Cardiology, [facility] [address] [place] [address] Huong Oseguera CRNP [address] [place] [address] 01/03/2024 11:15 AM EDT Office Visit Hematology/Oncology [facility] 200 [facility] [place], [place] [address] Zeeshan Choi MD 200 [facility] [place] [address] Health Maintenance Due Date Last Done Comments COVID-19 Vaccine (#1) 04/01/1936 Pneumococcal Vaccine: 65+ Years (1 - PCV) 09/29/1941 Depression Screening 1947 DTaP,Tdap,and Td Vaccines (1 - Tdap) 09/29/1954 Zoster Vaccines (1 of 2) 09/29/1985 Influenza Vaccine (FLU shot) (#1) 2023 CKD PHOS USE SMARTSET [id number] 11/11/2023 11/10/2022 Albumin/Creatinine Ratio 05/11/2024 05/11/2023, 07/24 CKD HGB USE SMARTSET 51703 08/08/202408/08, 08/08/2023, 07/26/2023, Additional history exists O2 ASSESSMENT COMPLETED IN PAST YEAR FOR COPD 08/08/2024 08/08/2023 DXA Scan 12/07/2032 12/07/2022 Alpha-1 Antitrypsin Completed [...] as of this encounter Visit Diagnoses Diagnosis Postoperative follow-up- Primary Follow-up examination, following unspecified surgery documented in this encounter Care Teams Gaming Associate Relationship Specialty Start Date End Date Toshia Reynaga DO [address] [place] [address] PCP - General Family Medicine 12/07/22 documented as of this encounter
--- OUTSIDE RECORDS SUMMARY | 2023-12-06 23:36 | External Medical Summary | Summary of Care ---
Author Name Unknown Organization [facility] Address [address] [place] [address] Phone [phone] Care Team Providers Care Director Network Development Name Role Phone Toshia Reynaga DO Primary Care Provider [phone] Encounter Details Date Type Department Care Team (Late st Contact Info) Description 08/10/2023 Orders Only PATIENT PORTAL DO NOT DELETE THIS DEPT USED BY [place] [id number] Allergies Active Allergy Reactions Criticality Noted Date Comments Lisinopril Other (Please comment) 05/06/2022 Burning in throat documented as of this encounter (statuses as of 08/10/2023) Medications Medication Sig Dispensed Refills Start Date [...] Respimat 2.5 MCG/ACT Inhalation Aerosol Solution (Tiotropium [place] Monohydrate)Indicati ons:COPD, very severe (HCC) Inhale 2 [...] as of this encounter (statuses as of 08/10/2023) Active Problems Problem Noted Date Diagnosed Date [...] as of this encounter (statuses as of 08/10/2023) Resolved Problems Problem Noted Date Diagnosed Date Resolved Date Chronic obstructive pulmonary disease 05/11/2023 06/08/2023 Overview: Per COPD GOLD Classification documented as of this encounter (statuses as of 08/10/2023) Immunizations No known immunizationsdocumented as of this encounter Social History Tobacco Use Types Packs/Day Years Used Date Smoking Tobacco: Former Cigarettes 0.3 5 1 974 - 7910 Passive Smoke Exposure: Never Smokeless Tobacco: Never [...] Care Team (Late st Contact Info) Description 08/10/2023 10:15 AM EST Imaging Radiology [facility] [address] [place] [address] 08/14/2023 10:15 AM EST Office Visit General Surgery, [facility] [address] [place] [address] Paula Callahan MD 132 [place] [address] 08/14/2023 11:00 AM EST Office Visit Family Practice [facility] 132 [place] [address] Toshia Reynaga DO 132 [place] [address] 08/28/2023 9:00 AM [facility] Pharmacy Pharmacy Hematology Oncology [facility] [place] [address] [place] [address] [facility] Hem/Onc [address] [place] [address] 12/06/2023 11:20 AM EDT Office Visit Dermatology [address] [place] [address] Toshia Mattson PA-C [address] [place] [address] [place] [address] 12/21/2023 2:00 PM EDT Office Visit Cardiology, [facility] [address] [place] [address] Huong Oseguera CRNP [facility] [place] [address] 01/03/2024 11:15 AM EDT Office Visit Hematology/Oncology [facility] 200 [facility] [place] [address] Zeeshan Choi MD 200 [facility] [address] Health Maintenance Due Date Last Done Comments COVID-19 Vaccine (#1) 04/01/1936 Pneumococcal Vaccine: 65+ Years (1 - PCV) 09/29/1941 Depression Screening 1947 DTaP,Tdap,and Td Vaccines (1 - Tdap) 09/29/1954 Zoster Vaccines (1 of 2) 09/29/1985 Influenza Vaccine (FLU shot) (#1) 2023 CKD PHOS USE SMARTSET 10934 11/11/2023 11/10/2022 Albumin/Creatinine Ratio 05/11/2024 05/11/2023, 07/24 CKD HGB USE SMARTSET 06431 08/08/202408/08, 08/08/2023, 07/26/2023, Additional history exists O2 [...] as of this encounter Care Teams Director Network Development Relationship Specialty Start Date End Date Toshia Reynaga DO 132 [place] [address] PCP - General Family Medicine 12/07/22 documented as of this encounter
--- OUTSIDE RECORDS SUMMARY | 2023-12-06 23:36 | External Medical Summary | Summary of Care ---
Author Name Unknown Organization [facility] Address [address] [place] [address] Phone [phone] Care Team Providers Care Carbon Paper Coating Machine Setter Name Role Phone RonnellToshia piper Beverly CARBALLO Primary Care Provider [phone] Reason for Referral * Precert (Within 10 days (routine)) - Pending Review Specialty Diagnoses / Procedures Referred By Contac t Referred To Contact Cardiac Studies Diagnoses Pleural effusion Lower extremity edema Procedures ECHO, COMPLETE (2D), TRANS-THORACIC Queta Maldonado PA-C [address] [place] [address] Referral ID Status Reason Start Date Expiration Date Visits Requested Visits Authorized [id number] Pending Review Precert 08/08/2023 999 [id number] * Evaluate & Treat - Unlimited Visits (Within 10 days (routine)) - Pending Review Specialty Diagnoses / Procedures Referred By Contac t Referred To Contact Pulmonary Diseases / Pulmonary Diagnoses Lung nodule Queta Maldonado PA-C [address] [place] [address] Referral ID Status Reason Start Date Expiration Date Visits Requested Visits Authorized [id number] Pending Review Specialty Services Required 08/08/2023 999 [id number] Question Answer Referral Priority Within 10 Days (Routine) Primary Reason for Referral? Lung Nodule/Mass Reason for Visit * Reason Onset Date Comments Test Results 08/08/2023 CT scan and US Encounter Details Date Type Department Care Team (Late st Contact Info) Description 08/08/2023 Telephone Family Practice [facility] Anabel [place] [address] [place] [address] Queta Maldonado PA-C [address] [place] [address] Test Results (CT scan and US) Allergies Active Allergy Reactions Criticality Noted Date Comments Lisinopril Other (Please comment) 05/06/2022 Burning in throat documented as of this encounter (statuses as of 08/08/2023) Medications Medication Sig Dispensed Refills Start Date [...] Respimat 2.5 MCG/ACT Inhalation Aerosol Solution (Tiotropium [place] Monohydrate)Indicati ons:COPD, very severe (HCC) Inhale 2 [...] mg NEBULIZER ONCE PRN 02/17/2023 02/17/2024 Active sodium chloride 0.9 % flush/inj 10 mL 10 mL IV PUSH ONCE 08/08/2023 08/09/2023 Active documented as of this encounter (statuses as of 08/08/2023) Active Problems Problem Noted Date Diagnosed Date [...] as of this encounter (statuses as of 08/08/2023) Resolved Problems Problem Noted Date Diagnosed Date Resolved Date Chronic obstructive pulmonary disease 05/11/2023 06/08/2023 Overview: Per COPD GOLD Classification documented as of this encounter (statuses as of 08/08/2023) Immunizations No known immunizationsdocumented as of this [...] as of this encounter Miscellaneous Notes * Addendum Note - Patti Rajput LPN - 08/08/2023 4:40 PM ESTAddended by: PATTI RAJPUT on: 08/08/2023 04:40 PM Modules accepted: Orders * Telephone Encounter - Patti Rajput LPN - 08/08/2023 4:34 PM EST Patient is aware of Queta's message below. Discussed everything in detail, questions answered. Patient is agreeable to getting echo and renal US. Patient is scheduled with Dr. Reynaga on Monday, 08/14- will arrive early and have labs checked before the visit. She doesn't think that her doctor in [place] ever mentioned anything about lung nodules to her. * Telephone Encounter - Queta Maldonado PA-C - 08/08/2023 4:11 PM EST Please let patient know that her scans for PE and DVT were both negative, which is good news! Her scans did show that she has some fluid in her lungs, so I am concerned that she is having fluidback up into her lungs. I am going to start her on a fluid pill to try to get the fluid off. We have to do this carefully because of her kidneys. I will send this to the pharmacy. Take the medication daily for one week, then stop and recheck labs. Labs are pended. In addition, I want to recheck her labs in a week. I am also going to order an echo to be done to check her heart function- if her heart isn't pumpingwell, this could be causing the fluid to back up. The imaging also found a spot on her kidney. They are recommending an ultrasound for further follow-up. Would she like me to order this? There were also some pulmonary nodules. Did her doctor in [place] ever make note of these? Typically we follow these up in a year to make sure they aren't changing. Please assist with scheduling echo, and a 1 week recheck after she gets labs done. documented in this encounter Plan of Treatment Upcoming Encounters Date Type Department Care Team (Late st Contact Info) Description 08/14/2023 10:15 AM EST Office Visit General Surgery, [facility] [address] [address] Paula Callahan MD [address] [place] [address] 08/14/2023 11:00 AM EST Office Visit Family Practice [facility] [address] [address] Toshia Reynaga DO [address] [place] [address] 08/28/2023 9:00 AM EST Pharmacy Pharmacy Hematology Oncology [facility] [address] [place] [address] [facility] [place] Hem[facility]Onc [address] [place] [address] 12/06/2023 11:20 AM EDT Office Visit Dermatology [address] [place] [address] Toshia Mattson PA-C [address] [place] [address] [place] [address] 12/21/2023 2:00 PM EDT Office Visit Cardiology, [facility] [address] [place] [address] Huong Oseguera CRNP [address] [place] [address] 01/03/2024 11:15 AM EDT Office Visit Hematology/Oncology [facility] [address] [place] [address] Zeeshan Choi MD 200 [facility] [place] [address] Scheduled Orders Name Type Priority Associated Diagnoses Orde r Schedule COMPREHENSIVE METABOLIC PANEL Lab Routine Pleural effusion Lower extremity edema Expected: 08/14/2023 (Approximate), Expires: 08/07/2024 ECHO, COMPLETE (2D), TRANS-THORACIC Echocardiology Routine Pleural effusion Lower extremity edema Expected: 08/08/2023, Expires: 09/08/2025 Scheduled Referrals Name Type Priority Associated Diagnoses Order Schedule STAIR LUNG NODULE REFERRAL OP (SYSTEM FOR TRACKING ABNORMALITIES OF IMPORTANCE RELIABLY) Referral Within 10 days (routine) Lung nodule Ordered: 08/08/2023 Health Maintenance Due Date Last Done Comments COVID-19 Vaccine (#1) 04/01/1936 Pneumococcal Vaccine: 65+ Years (1 - PCV) 09/29/1941 Depression Screening 1947 DTaP,Tdap,and Td Vaccines (1 - Tdap) 09/29/1954 Zoster Vaccines (1 of 2) 09/29/1985 Influenza Vaccine (FLU shot) (#1) 2023 CKD PHOS USE SMARTSET 42556 11/11/2023 11/10/2022 Albumin/Creatinine Ratio 05/11/2024 05/11/2023, 07/24 CKD HGB USE SMARTSET 18410 08/08/202408/08, 08/08/2023, 07/26/2023, Additional history exists O2 [...] as of this encounter Visit Diagnoses Diagnosis Lung nodule- Primary Solitary pulmonary nodule Pleural effusion Unspecified pleural effusion Lower extremity edema Edema documented in this encounter Care Teams Carbon Paper Coating Machine Setter Relationship Specialty Start Date End Date Toshia Reynaga DO [address] [address] PCP - General Family Medicine 12/07/22 documented as of this encounter
--- OUTSIDE RECORDS SUMMARY | 2023-12-06 23:36 | External Medical Summary | Summary of Care ---
Author Name Unknown Organization [facility] Address [address] [place] [address] Phone [phone] Care Team Providers Care Welt Slasher Name Role Phone RonnellToshia piper Beverly CARBALLO Primary Care Provider [phone] Reason for Referral * Precert (Within 10 days (routine)) - Pending Review Specialty Diagnoses / Procedures Referred By Contac t Referred To Contact Cardiac Studies Diagnoses Pleural effusion Lower extremity edema Procedures ECHO, COMPLETE (2D), TRANS-THORACIC Queta Maldonado PA-C [address] [place] [address] Referral ID Status Reason Start Date Expiration Date Visits Requested Visits Authorized [id number] Pending Review Precert 08/08/[phone] * Evaluate & Treat - Unlimited Visits (Within 10 days (routine)) - Pending Review Specialty Diagnoses / Procedures Referred By Contac t Referred To Contact Pulmonary Diseases / Pulmonary Diagnoses Lung nodule Queta Maldonado PA-C [address] [place] [address] Referral ID Status Reason Start Date Expiration Date Visits Requested Visits Authorized [id number] Pending Review Specialty Services Required 08/08/2023 999 999 Question Answer Referral Priority Within 10 Days (Routine) Primary Reason for Referral? Lung Nodule/Mass Reason for Visit * Reason Onset Date Comments Test Results 08/08/2023 CT scan and US Encounter Details Date Type Department Care Team (Late st Contact Info) Description 08/08/2023 Telephone Family Practice [facility] [address] [place] [address] [place] [address] Queta Maldonado PA-C [address] [place] [address] Test Results (CT scan and US) Allergies [...] Respimat 2.5 MCG/ACT Inhalation Aerosol Solution (Tiotropium [place] Monohydrate)Indicati ons:COPD, very severe (HCC) Inhale 2 [...] encounter Miscellaneous Notes * Telephone Encounter - Queta Maldonado PA-C [...] some pulmonary nodules. Did her doctor in [place] ever make note of these? Typically we follow these up in a year to make sure they aren't changing. Please assist with scheduling echo, and a 1 week recheck after she gets labs done. documented in this encounter Plan of Treatment Upcoming Encounters Date Type Department Care Team (Late st Contact Info) Description 08/14/2023 10:15 AM EST Office Visit General Surgery, [facility] [address] [place] [address] Paula Callahan MD [address] [place] [address] 08/14/2023 11:00 AM EST Office Visit Family Practice [facility] [address] [place] [address] Toshia Reynaga DO [address] [place] [address] 08/28/2023 9:00 AM EST Pharmacy Pharmacy Hematology Oncology [facility] [address] [place] [address] [facility] [place] Hem/Onc [address] [place] [address] 12/06/2023 11:20 AM EDT Office Visit Dermatology [address] [place] [address] Toshia Mattson PA-C [address] [place] [address] [place] [address] 12/21/2023 2:00 PM EDT Office Visit Cardiology, [facility] [address] [place] [address] Huong Oseguera CRNP [address] [place] [address] 01/03/2024 11:15 AM EDT Office Visit Hematology/Oncology [facility] [place] [address] [place] [address] Zeeshan Choi MD 200 [facility] [place] [address] Scheduled Orders Name Type Priority Associated Diagnoses [...] shot) (#1) 2023 CKD PHOS USE SMARTSET 52822 11/11/2023 11/10/2022 Albumin/Creatinine Ratio 05/11/2024 05/11/2023, 07/24 CKD HGB USE SMARTSET 90072 08/08/202408/08, 08/08/2023, 07/26/2023, Additional history exists O2 [...] Edema documented in this encounter Care Teams Welt Slasher Relationship Specialty Start Date End Date Toshia Reynaga DO [address] [place] [address] PCP - General Family Medicine 12/07/22 documented as of this encounter
--- OUTSIDE RECORDS SUMMARY | 2023-12-06 23:36 | External Medical Summary | Summary of Care ---
Author Name Unknown Organization [facility] Address [address] [place] [address] Phone [phone] Care Team Providers Care Maintenance Worker Municipal Name Role Phone RonnellToshia piper Beverly CARBALLO Primary Care Provider [phone] Reason for Referral * Precert (Within 10 days (routine)) - Pending Review Specialty Diagnoses / Procedures Referred By Contac t Referred To Contact Cardiac Studies Diagnoses Pleural effusion Lower extremity edema Procedures ECHO, COMPLETE (2D), TRANS-THORACIC Robyn Hopson PA-C [address] [place] [address] Referral ID Status Reason Start Date Expiration Date Visits Requested Visits Authorized [id number] Pending Review Precert 08/08/2023 999 999 * Evaluate & Treat - Unlimited Visits (Within 10 days (routine)) - Pending Review Specialty Diagnoses / Procedures Referred By Contac t Referred To Contact Pulmonary Diseases / Pulmonary Diagnoses Lung nodule Robyn Hopson PA-C [address] [place] [address] Referral ID Status Reason Start Date Expiration Date Visits Requested Visits Authorized [id number] Pending Review Specialty Services Required 08/08/2023 999 999 Question Answer Referral Priority Within 10 Days (Routine) Primary Reason for Referral? Lung Nodule/Mass Reason for Visit * Reason Onset Date Comments Test Results 08/08/2023 CT scan and US Encounter Details Date Type Department Care Team (Late st Contact Info) Description 08/08/2023 Telephone Family Practice [facility] Anabel [place] [address] [place] [address] Robyn Hopson PA-C [address] [place] [address] Test Results (CT scan and US) Allergies [...] Respimat 2.5 MCG/ACT Inhalation Aerosol Solution (Tiotropium [place] Monohydrate)Indicati ons:COPD, very severe (HCC) Inhale 2 [...] encounter Miscellaneous Notes * Addendum Note - Robyn Hopson PA-C - 08/08/2023 4:54 PM ESTAddended by: ROBYN HOPSON on: 08/08/2023 04:54 PM Modules accepted: Orders * Telephone Encounter - Robyn Hopson PA-C - 08/08/2023 4:53 PM EST Renal US order signed. Please assist with scheduling. * Addendum Note - Patti Rajput LPN - 08/08/2023 4:40 PM ESTAddended by: PATTI RAJPUT on: 08/08/2023 04:40 PM Modules accepted: Orders * Telephone Encounter - Patti Rajput LPN - 08/08/2023 4:34 PM EST Patient is aware of Robyn's message below. Discussed everything in detail, questions answered. Patient is agreeable to getting echo and renal US. Patient is scheduled with Dr. Reynaga on Monday, 08/14- will arrive early and have labs checked before the visit. She doesn't think that her doctor in [place] ever mentioned anything about lung nodules to her. * Telephone Encounter - Robyn Hopson PA-C - 08/08/2023 4:11 PM EST Please [...] some pulmonary nodules. Did her doctor in [place] ever make note of these? Typically we follow these up in a year to make sure they aren't changing. Please assist with scheduling echo, and a 1 week recheck after she gets labs done. documented in this encounter Plan of Treatment Upcoming Encounters Date Type Department Care Team (Late st Contact Info) Description 08/14/2023 10:15 AM EST Office Visit General Surgery, [facility] [address] [address] Paula Callahan MD [address] [place] [address] 08/14/2023 11:00 AM EST Office Visit Family Practice [facility] [address] [address] Toshia Reynaga, [address] [place] [address] 08/28/2023 9:00 AM [facility] Pharmacy Pharmacy Hematology Oncology [facility] [place] [address] [facility] [place] [address] [facility] [place] Hem/Onc [address] [place] [facility] [place] [address] 12/06/2023 11:20 AM EDT Office Visit Dermatology [address] [place] [address] Toshia Mattson PA-C [address] [place] [address] [place] [address] 12/21/2023 2:00 PM EDT Office Visit Cardiology, [facility] [place] [address] Huong Oseguera CRNP [address] [place] [address] 01/03/2024 11:15 AM EDT Office Visit Hematology/Oncology [facility] 200 [facility] [place] [address] Zeeshan Choi MD 200 [facility] [place] [address] Scheduled Orders Name Type Priority Associated Diagnoses Orde r Schedule COMPREHENSIVE METABOLIC PANEL Lab Routine Pleural effusion Lower extremity edema Expected: 08/14/2023 (Approximate), Expires: 08/07/2024 ECHO, COMPLETE (2D), TRANS-THORACIC Echocardiology Routine Pleural effusion Lower extremity edema Expected: 08/08/2023, Expires: 09/08/2025 US RENAL Medical Imaging Routine Renal cyst, acquired, left Expected: 08/09/2023 (Approximate), Expires: 09/08/2024 Scheduled Referrals Name Type Priority Associated Diagnoses [...] shot) (#1) 2023 CKD PHOS USE SMARTSET 94922 11/11/2023 11/10/2022 Albumin/Creatinine Ratio 05/11/2024 05/11/2023, 07/24 CKD HGB USE SMARTSET 65507 08/08/202408/08, 08/08/2023, 07/26/2023, Additional history exists O2 [...] Unspecified pleural effusion Lower extremity edema Edema Renal cyst, acquired, left Acquired cyst of kidney documented in this encounter Care Teams Maintenance Worker Municipal Relationship Specialty Start Date End Date Toshia Reynaga DO [address] [place] [address] PCP - General Family Medicine 12/07/22 documented as of this encounter
--- OUTSIDE RECORDS SUMMARY | 2023-12-06 23:36 | External Medical Summary | Summary of Care ---
Author Name Unknown Organization [facility] Address [address] [place] [address] Phone [phone] Care Team Providers Care Plating Operator Name Role Phone RonnellToshia piper Beverly CARBALLO Primary Care Provider [phone] Reason for Referral * Precert (Within 10 days (routine)) - Pending Review Specialty Diagnoses / Procedures Referred By Contac t Referred To Contact Radiology Diagnoses Pulmonary nodules Procedures CT CHEST WO CONTRAST Tiffany Moreno CRNP [address] [place] [address] Referral ID Status Reason Start Date Expiration Date V isits Requested Visits Authorized [id number] Pending Review 08/08/[phone] Encounter Details Date Type Department Care Team (Late st Contact Info) Description 08/23/2023 Orders Only STAIR LUNG NODULE [address] [place] [address] Tiffany Moreno CRNP [address] [place] [address] Pulmonary nodules* Allergies Active Allergy Reactions Criticality Noted Date Comments Lisinopril Other (Please comment) 05/06/2022 Burning in throat documented as of this encounter (statuses as of 08/23/2023) Medications Medication Sig Dispensed Refills Start Date [...] Respimat 2.5 MCG/ACT Inhalation Aerosol Solution (Tiotropium [place] Monohydrate)Indicati ons:COPD, very severe (HCC) Inhale 2 [...] as of this encounter (statuses as of 08/23/2023) Active Problems Problem Noted Date Diagnosed Date [...] as of this encounter (statuses as of 08/23/2023) Resolved Problems Problem Noted Date Diagnosed Date Resolved Date Chronic obstructive pulmonary disease 05/11/2023 06/08/2023 Overview: Per COPD GOLD Classification documented as of this encounter (statuses as of 08/23/2023) Immunizations No known immunizationsdocumented as of this [...] st Contact Info) Description 08/28/2023 9:00 AM [facility] Pharmacy Pharmacy Hematology Oncology [facility] [address] [place] [address] [facility] Hem/Onc [address] [place] [address] 11/14/2023 9:40 AM EDT Office Visit Family Practice [facility] [address] [place] [address] Toshia Reynaga DO [address] [place] [address] 12/06/2023 11:20 AM EDT Office Visit Dermatology [address] [place] [address] Toshia Mattson PA-C [address] [place] [address] [place] [address] 12/21/2023 2:00 PM EDT Office Visit Cardiology, [facility] [place] [address] Huong Oseguera CRNP [address] [place] [address] 01/03/2024 11:15 AM EDT Office Visit Hematology/Oncology [facility] [address] [place] [address] Zeeshan Choi MD [address] [place] [address] Scheduled Orders Name Type Priority Associated Diagnoses Orde r Schedule CT CHEST WO CONTRAST Medical Imaging Routine Pulmonary nodules Expected: 08/08/2024, Expires: 09/20/2024 Health Maintenance Due Date Last Done Comments COVID-19 Vaccine (#1) 04/01/1936 Pneumococcal Vaccine: 65+ Years (1 - PCV) 09[birth year]29/1941 Depression Screening 1947 DTaP,Tdap,and Td Vaccines (1 - Tdap) 09/29/1954 Zoster Vaccines (1 of 2) 09/29/1985 Influenza Vaccine (FLU shot) (#1) 2023 CKD PHOS USE SMARTSET 12575 11/11/2023 11/10/2022 Albumin/Creatinine Ratio 05/11/2024 05/11/2023, 07/24 CKD HGB USE SMARTSET 79161 08/08/202408/08, 08/08/2023, 07/26/2023, Additional history exists O2 [...] as of this encounter Visit Diagnoses Diagnosis Pulmonary nodules- Primary Other nonspecific abnormal finding of lung field documented in this encounter Care Teams Plating Operator Relationship Specialty Start Date End Date Toshia Reynaga DO [address] [place] [address] PCP - General Family Medicine 12/07/22 documented as of this encounter
--- OUTSIDE RECORDS SUMMARY | 2023-12-06 23:36 | External Medical Summary | Summary of Care ---
Author Name Unknown Organization [facility] Address [address] [place] [address] Phone [phone] Care Team Providers Care Gamemaster Name Role Phone Toshia Reynaga DO Primary Care Provider [phone] Reason for Visit * Reason Comments Medication Refill Encounter Details Date Type Department Care Team (Late st Contact Info) Description 08/22/2023 Refill Hematology/Oncology [facility] [place] [address] [facility] [place] [address] Layo Choi MD [address] [facility] [place] [address] Chronic ITP (idiopathic thrombocytopenia) (HCC) Allergies Active Allergy Reactions Criticality Noted Date Comments Lisinopril Other (Please comment) 05/06/2022 Burning in throat documented as of this encounter (statuses as of 08/22/2023) Medications Medication Sig Dispensed Refills Start Date [...] Respimat 2.5 MCG/ACT Inhalation Aerosol Solution (Tiotropium [place] Monohydrate)Indica tions:COPD, very severe (HCC) Inhale 2 Puffs by mouth in the morning. 4 g 3 08/15/2023 Active Doptelet 20 MG Oral Tablet (Avatrombopag Maleate)Indication s:Chronic ITP (idiopathic thrombocytopenia) (HCC) Take 2 tablets (40mg) by mouth in morning. 60 Tablet 5 08/22/2023 Active Avatrombopag Maleate 20 MG Oral TabletIndications: Chronic ITP (idiopathic thrombocytopenia) (HCC) Take 2 tablets (40mg) by mouth in morning. 60 Tablet 5 03/03/2023 4 Discontinue d(Refill) Hospital, Clinic, or Other Facility Administered Medication Ordered Dose Route Frequency Start Date End Date Status Albuterol Sulfate (Proventil) (2.5 MG/3ML) 0.083% inhalation solution 2.5 mgIndications:COPD, severity to be determined (HCC) 2.5 mg NEBULIZER ONCE PRN 02/17/2023 02/17/2024 Active documented as of this encounter (statuses as of 08/22/2023) Active Problems Problem Noted Date Diagnosed Date [...] as of this encounter (statuses as of 08/22/2023) Resolved Problems Problem Noted Date Diagnosed Date Resolved Date Chronic obstructive pulmonary disease 05/11/2023 06/08/2023 Overview: Per COPD GOLD Classification documented as of this encounter (statuses as of 08/22/2023) Immunizations No known immunizationsdocumented as of this [...] Miscellaneous Notes * Telephone Encounter - Winter Avalos RPh - 08/22/2023 10:42 AM EST Signed Prescriptions: Disp Refills Doptelet 20 MG Oral Tablet (Avatrombopag M*60 Tab*5 Sig: Take 2 tablets (40mg) by mouth in morning.Authorizing Provider: LAYO CHOI User: WINTER AVALOS * Telephone Encounter - Winter Avalos RPh - 08/22/2023 10:39 AM EST Refill Request EPIC Note Clinical Pharmacy Service (Hematology/Oncology): Refill Request(s) PHYSICIAN ACTION: No Assessment & Plan After reviewing the parameters in order to refill the patient's medication(s), the following was determined: The medication(s), avatrombopag, was refilled and no parameters need to be addressed No communication to requesting entity necessary Refill Parameters The following parameters were assessed in order to decide whether or not this refill was appropriate: Refill Parameter Comments If the patient was seen in the last 6 months (12 months for MPN patients) Yes - 07/04/24 If the labs were completed per prescribing information recommendations or provider recommendations Yes - 08/08/23 If the labs were within normal limits or stable at baseline yes If the dose was correct and/or if the prescription sig reflects the current prescribed dose yes If there were any new drug interactions with the patient's oral chemotherapy Yes - furosemide - no DDI If there were any care gaps/baseline labs that need to be addressed no Winter Avalos [facility] Ambulatory Clinical Pharmacist | Oral Chemotherapy Clinic [facility] 08/22/2023, 10:42 AM documented in this encounter Plan of Treatment Upcoming Encounters Date Type Department Care Team (Late st Contact Info) Description 08/28/2023 9:00 AM EST Pharmacy Pharmacy Hematology Oncology [place] [address] [place] [address] [facility], [facility] Hem/Onc [address] [place] [address] 11/14/2023 9:40 AM EDT Office Visit Family Practice [facility] [address] [place] [address] Toshia Reynaga DO [address] [place] [address] 12/06/2023 11:20 AM EDT Office Visit Dermatology [address] [place] [address] Toshia Mattson PA-C [address] [place] [address] [place] [address] 12/21/2023 2:00 PM EDT Office Visit Cardiology, [facility] [address] [place] [address] Huong Oseguera CRNP [address] [place] [address] 01/03/2024 11:15 AM EDT Office Visit Hematology/Oncology [facility] [address] [facility] [place] [address] Layo Choi MD [address] [facility] [place], [place] [address] Health Maintenance Due Date Last Done Comments COVID-19 Vaccine (#1) 04/01/1936 Pneumococcal Vaccine: 65+ Years (1 - PCV) 09/29/1941 Depression Screening 1947 DTaP,Tdap,and Td Vaccines (1 - Tdap) 09/29/1954 Zoster Vaccines (1 of 2) 09/29/1985 Influenza Vaccine (FLU shot) (#1) 2023 CKD PHOS USE SMARTSET 58421 11/11/2023 11/10/2022 Albumin/Creatinine Ratio 05/11/2024 05/11/2023, 07/24 CKD HGB USE SMARTSET 28983 08/08/202408/08, 08/08/2023, 07/26/2023, Additional history exists O2 [...] purpura documented in this encounter Care Teams Gamemaster Relationship Specialty Start Date End Date Toshia Reynaga DO [address] [place] [address] PCP - General Family Medicine 12/07/22 documented as of this encounter"
--- OUTSIDE RECORDS SUMMARY | 2023-12-06 23:36 | External Medical Summary | Summary of Care ---
Author Name Unknown Organization [facility] Address [address] [place] [address] Phone [phone] Care Team Providers Care Deputy [place] Marshal Name Role Phone Toshia Reynaga DO Primary Care Provider [phone] Encounter Details Date Type Department Care Team (Late st Contact Info) Description 08/15/2023 Telephone Family Practice [facility] [address] [facility] [place] [address] Raysa Watson CRNP [address] [facility] [place] [address] Allergies Active Allergy Reactions Criticality Noted Date Comments Lisinopril Other (Please comment) 05/06/2022 Burning in throat documented as of this encounter (statuses as of 08/17/2023) Medications Medication Sig Dispensed Refills Start Date [...] Respimat 2.5 MCG/ACT Inhalation Aerosol Solution (Tiotropium [place] Monohydrate)Indicati ons:COPD, very severe (HCC) Inhale 2 Puffs by mouth in the morning. 4 g 3 08/15/2023 Active Hospital, Clinic, or Other Facility Administered Medication Ordered Dose Route Frequency Start Date End Date Status Albuterol Sulfate (Proventil) (2.5 MG/3ML) 0.083% inhalation solution 2.5 mgIndications:COPD, severity to be determined (HCC) 2.5 mg NEBULIZER ONCE PRN 02/17/2023 02/17/2024 Active documented as of this encounter (statuses as of 08/17/2023) Active Problems Problem Noted Date Diagnosed Date [...] as of this encounter (statuses as of 08/17/2023) Resolved Problems Problem Noted Date Diagnosed Date Resolved Date Chronic obstructive pulmonary disease 05/11/2023 06/08/2023 Overview: Per COPD GOLD Classification documented as of this encounter (statuses as of 08/17/2023) Immunizations No known immunizationsdocumented as of this [...] encounter Miscellaneous Notes * Telephone Encounter - Raysa Watson CRNP - 08/17/2023 12:11 PM EST Ok -- I was hoping it could be copied/pasted by son but may not be possible. We tried viewing together but without seeing what she's doing with inhaler it's hard to provide advice. If unable to figure it out after reviewing information on spiriva website recommend she bring it in to pharmacist or us * Telephone Encounter - Nichole Kim LPN - 08/16/2023 6:51 AM EST I don't believe the link you sent to pt is something she can open. It's not a sharable link from what I can see. Or I would be able to also open it. * Telephone Encounter - Raysa Watson CRNP - 08/15/2023 1:45 PM EST Please call patient to review spiriva inhaler use Here is the video of how it should work: https://[email or web address]/us/products/spiriva/co pd/kyq-avodxh-rrpklquv?s_kwcid=[email or web address]%21e%21%21g%21%21spir toyin%20respimat&c id=food order expediter%3AGoogleAds%3A3W_SPI-COPD_HCP_GADS_US_EN_BRAND_CONV_RESPIMAT_g%3A%3ARespi mat_e_kwd-spiriva%20 respimat&gclid=[email or web address]&gclsrc=aw .ds She reports "turning it" an dit sprays out before she puts it in her mouth In the video there is no "turning" so please review how she is opening the cap and whether she may be pressing the button when she's trying to open it documented in this encounter Plan of Treatment Upcoming Encounters Date Type Department Care Team (Late st Contact Info) Description 08/28/2023 9:00 AM EST Pharmacy Pharmacy Hematology Oncology [facility] [address] [place] [address] [facility] Hem/Onc [address] [place] [address] 11/14/2023 9:40 AM EDT Office Visit [facility] [address] [facility] [place] [address] Toshia Reynaga DO [address] [place] [address] 12/06/2023 11:20 AM EDT Office Visit Dermatology [address] [place] [address] Toshia Mattson PA-C [address] [place] [address] [place] [address] 12/21/2023 2:00 PM EDT Office Visit Cardiology, [facility] [address] [place] [address] Huong Oseguera CRNP [address] [place] [address] 01/03/2024 11:15 AM EDT Office Visit Hematology/Oncology [facility] [address] [place] [address] Zeeshan Choi MD [address] [place] [address] Health Maintenance Due Date Last Done Comments COVID-19 Vaccine (#1) [birth year]01/1936 Pneumococcal Vaccine: 65+ Years (1 - PCV) 09/29/1941 Depression Screening 1947 DTaP,Tdap,and Td Vaccines (1 - Tdap) 09/29/1954 Zoster Vaccines (1 of 2) 09/29/1985 Influenza Vaccine (FLU shot) (#1) 2023 CKD PHOS USE SMARTSET [id number] 11/11/2023 11/10/2022 Albumin/Creatinine Ratio 05/11/2024 05/11/2023, 07/24 CKD HGB USE SMARTSET 42051 08/08/202408/08, 08/08/2023, 07/26/2023, Additional history exists O2 [...] filedocumented as of this encounter Care Teams Deputy United [place] Marshal Relationship Specialty Start Date End Date Toshia Reynaga DO [address] [place] [address] PCP - General Family Medicine 12/07/22 documented as of this encounter
--- OUTSIDE RECORDS SUMMARY | 2023-12-06 23:36 | External Medical Summary | Summary of Care ---
Author Name Unknown Organization [facility] Address [address] [place] [address] Phone [phone] Care Team Providers Care Hi Teacher Name Role Phone Toshia Reynaga DO Primary Care Provider [phone] Reason for Visit * Reason Comments Return Visit 3mon f/u leg swell Encounter Details Date Type Department Care Team (Late st Contact Info) Description 08/15/2023 1:00 PM EST Office Visit Family [facility] [address] [place] [address] Raysa Watson CRNP [address] [place] [address] Lower extremity edema*; COPD, very severe (HCC); SOB (shortness of breath); HTN, goal below 140/90; Chronic ITP (idiopathic thrombocytopenia) (HCC); Stage 3a chronic kidney disease (HCC) Allergies Active Allergy Reactions Criticality Noted Date Comments Lisinopril Other (Please comment) 05/06/2022 Burning in throat documented as of this encounter (statuses as of 08/24/2023) Medications Medication Sig Dispensed Refills Start Date [...] Respimat 2.5 MCG/ACT Inhalation Aerosol Solution (Tiotropium [place] Monohydrate)Indica tions:COPD, very severe (HCC) Inhale 2 Puffs by mouth in the morning. 4 g 3 08/15/2023 Active Avatrombopag Maleate 20 MG Oral TabletIndications: Chronic ITP (idiopathic thrombocytopenia) (HCC) Take 2 tablets (40mg) by mouth in morning. 60 Tablet 5 03/03/2023 4 Discontinue d(Refill) Spiriva Respimat 2.5 MCG/ACT Inhalation Aerosol Solution (Tiotropium [place] Monohydrate)Indica tions:COPD, very severe (HCC) Inhale 2 Puffs by mouth in the morning. 4 g 3 08/07/2023 Discontinue d(Refill) Hospital, Clinic, or Other Facility Administered Medication Ordered Dose Route Frequency Start Date End Date Status Albuterol Sulfate (Proventil) (2.5 MG/3ML) 0.083% inhalation solution 2.5 mgIndications:COPD, severity to be determined (HCC) 2.5 mg NEBULIZER ONCE PRN 02/17/2023 02/17/2024 Active documented as of this encounter (statuses as of 08/24/2023) Active Problems Problem Noted Date Diagnosed Date [...] as of this encounter (statuses as of 08/24/2023) Resolved Problems Problem Noted Date Diagnosed Date Resolved Date Chronic obstructive pulmonary disease 05/11/2023 06/08/2023 Overview: Per COPD GOLD Classification documented as of this encounter (statuses as of 08/24/2023) Immunizations No known immunizationsdocumented as of this [...] Sign Reading Time Taken Comments Blood Pressure 104/58 08/15/2023 1:12 PM EST Pulse 58 08/15/2023 1:12 PM EST Temperature 35.8 C (96.4 F) 08/15/2023 1:12 PM ES T Respiratory Rate - - Oxygen Saturation 95% 08/15/2023 1:12 PM EST Inhaled Oxygen Concentration - - Weight 55.2 kg (121 lb 12.8 oz) 08/15/2023 1:12 PM EST Height - - Body Mass Index 23.79 08/08/2023 9:11 AM EST documented in this encounter Progress Notes * Raysa Watson CRNP - 08/15/2023 1:24 PM EST Images from the original note were not included. History of Present Illness Edilma Kennedy is a 87 year old female that presents for Return Visit (3mon f/u leg swell) HPI Here in routine follow up Saw another provider for lower leg edema with some SOB about a week ago Had extensive work up -- neg vasc duplex, chest CTA showing small BL pleural effusions multiple nodules but no PE She is on amlodipine for BP She is not able to use her spiriva inhaler -- she did not bring that today with her other meds to review. States it "sprays when she turns it" and ran out. She noticed some improvement after using lasix for a week. She urinated more. Still has some swelling. Fell and hit R knee and R hip 2 days ago. No dizziness before fall. States she tripped. Some bruising below R knee. No bruising or tenderness over hip. Walking ok without pain. Questions why on so many BP meds -- recall that when she was taken off of them around a hospitalization a year or so ago her BP got very high Follows with Dr Choi for low platelets Got anotification that her insurance may not cover her medication and then another saying it is approved through June. She is planning to call to clarify. Outpatient Medications Marked as Taking for the 08/15/23 encounter (Office Visit) with Raysa Watson CRNP Medication Sig Spiriva Respimat 2.5 MCG/ACT Inhalation Aerosol Solution (Tiotropium [place] Monohydrate) Inhale 2 Puffs by mouth in the morning. Furosemide 20 MG Oral Tablet (Lasix) Take 1 Tablet by mouth in the morning. For one week, then recheck labs and hold medicine.. amLODIPine Besylate 10 MG Oral Tablet (Norvasc) Take 1 Tablet by mouth in the morning. Losartan Potassium 100 MG Oral Tablet (Cozaar) Take 1 Tablet by mouth in the morning. Acetaminophen 500 MG Oral Tablet (Tylenol) Take 1 Tablet by mouth every 6 hours as needed. Bisoprolol Fumarate 5 MG Oral Tablet (Zebeta) TAKE 1 TABLET EVERY MORNING hydroCHLOROthiazide 12.5 MG Oral Tablet (Hydrodiuril) TAKE 1 TABLET EVERY MORNING Albuterol Sulfate HFA 108 (90 Base) MCG/ACT Inhalation Aerosol Solution Inhale 2 Puffs by mouth every 4 hours as needed for Cough, Shortness of Breath or Wheezing. [DISCONTINUED] Avatrombopag Maleate 20 MG Oral Tablet Take 2 tablets (40mg) by mouth in morning. Lansoprazole 30 MG Oral Capsule Delayed Release (Prevacid) 1 Capsule. Cyanocobalamin 1000 MCG Oral Tablet Take 1 Tablet by mouth in the morning. Polyethylene Glycol 3350 17 GM/SCOOP Oral Powder (MiraLax) Take by mouth 17 g as needed for Constipation. Dissolve one heaping tablespoon in 8 ounces of water or juice. Vitamin D3 125 MCG (5000 UT) Oral Capsule Take 1 Capsule by mouth in the morning. Current Facility-Administered Medications for the 08/15/23 encounter (Office Visit) with Raysa Watson CRNP Medication Albuterol Sulfate (Proventil) (2.5 MG/3ML) 0.083% inhalation solution 2.5 mg Physical Exam Vitals: 08/15/23 1312 Temp: 35.8 C (96.4 F) Pulse: 58 SpO2: 95% BP: 104/58 Physical Exam Vitals reviewed. Constitutional: General: She is not in acute distress. HENT: Head: Normocephalic and atraumatic. Right Ear: Tympanic membrane, ear canal and external ear normal. Left Ear: Tympanic membrane, ear canal and external ear normal. Nose: Nose normal. Mouth/Throat: Mouth: Mucous membranes are moist. Eyes: Extraocular Movements: Extraocular movements intact. Conjunctiva/sclera: Conjunctivae normal. Pupils: Pupils are equal, round, and reactive to light. Cardiovascular: Rate and Rhythm: Normal rate and regular rhythm. Heart sounds: Normal heart sounds. Pulmonary: Effort: Pulmonary effort is normal. Breath sounds: Normal breath sounds. Abdominal: General: Bowel sounds are normal. Palpations: Abdomen is soft. Musculoskeletal: Cervical back: Neck supple. Right lower leg: Edema (2+) present. Left lower leg: Edema (2+) present. Comments: No warmth, erythema or tenderness of both lower extremities Lymphadenopathy: Cervical: No cervical adenopathy. Skin: General: Skin is warm and dry. Capillary Refill: Capillary refill takes less than 2 seconds. Comments: + small healing abrasion R knee Neurological: Mental Status: She is alert and oriented to person, place, and time. Psychiatric: Behavior: Behavior normal. Thought Content: Thought content normal. Assessment and Plan Lower extremity edema Some improvement after lasix No erythema, tenderness Encourage leg elevation, compression stockings COPD, very severe (HCC) - Spiriva Respimat 2.5 MCG/ACT Inhalation Aerosol Solution (Tiotropium [place] Monohydrate); Inhale2 Puffs by mouth in the morning. SOB (shortness of breath) She needs to get back on spiriva Will have nursing follow up with her -- encourage bringng inhaler to a nurse visit or to her pharmacist to help her figure out the issue ER if severe SOB HTN, goal below 140/90 Stable on meds Could consider reducing amlodipine if LE edema continues Chronic ITP (idiopathic thrombocytopenia) (HCC) Following hematology Encourage follow up about her medication coverage Stage 3a chronic kidney disease (HCC) stable Wrap-Up Follow Up: Return in about 3 months (around 11/14/2023) for Labs Today. | For: Labs Today Time: I spent a total of 30-39 minutes (exact time 30 mins) on the date of service in preparation, delivery, and documentation of the care provided to Edilma Kennedy excluding any time spent in the performance of separately billed services. documented in this encounter Nursing Notes * Anna Harkins LPN - 08/15/2023 1:04 PM EST The patient has been properly identified by confirmation of name and date of . Chief Complaint Patient presents with Return Visit 3mon f/u leg swell Pt having BL lower extremity swelling. No pain. Pt said she received a letter from [facility] that they were going stop giving her her Doptelet. She isgoing to get a hold of Dr. Salinas office regarding this. Pt fell 2 days ago and hit her R knee. Tripped over chair. 3-4 weeks she dozed off at the table and bumped her head, has bruise on there now, small goose egg. She states she has been taking her furosemide, Rx'd for 1 week then to get labs. Today is that one week ricardo. States she has noticed decreased urine output. Pt has a lot of questions and confusion with her medications. Unsure what they are for. documented in this encounter Plan of Treatment Upcoming Encounters Date Type Department Care Team (Late st Contact Info) Description 08/28/2023 9:00 AM EST Pharmacy Pharmacy Hematology Oncology [facility] [address] [place] [address] [facility], [facility] Hem/Onc [address] [place] [address] 11/01/2023 2:30 PM EDT Cardiac Studies Cardiac Studies, [facility] [address] [place] [address] 11/14/2023 9:40 AM EDT Office Visit Family Practice [facility] [address] [place] [address] Toshia Reynaga DO 132 [facility] [place] [address] 12/06/2023 11:20 AM EDT Office Visit Dermatology [address] [place] [address] Toshia Mattson PA-C [address] [place] [address] [place] [address] 12/21/2023 2:00 PM EDT Office Visit Cardiology, [facility] [address] [place] [address] Huong Oseguera CRNP [address] [place] [address] 01/03/2024 11:15 AM EDT [facility] [place] [address] [facility] [place] [address] Zeeshan Choi MD 200 [facility] [place] [address] Health Maintenance Due Date Last Done Comments COVID-19 Vaccine (#1) 04/01/1936 Pneumococcal Vaccine: 65+ Years (1 - PCV) 09/29/1941 Depression Screening 1947 DTaP,Tdap,and Td Vaccines (1 - Tdap) 09/29/1954 Zoster Vaccines (1 of 2) 09/29/1985 Influenza Vaccine (FLU shot) (#1) 2023 CKD PHOS USE SMARTSET [id number] 11/11/2023 11/10/2022 Albumin/Creatinine Ratio 05/11/2024 05/11/2023, 07/24 CKD HGB USE SMARTSET 41295 08/08/202408/08, 08/08/2023, 07/26/2023, Additional history exists O2 [...] as of this encounter Visit Diagnoses Diagnosis Lower extremity edema- Primary Edema COPD, very severe (HCC) Chronic airway obstruction, not elsewhere classified SOB (shortness of breath) Shortness of breath HTN, goal below 140/90 Unspecified essential hypertension 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
--- OUTSIDE RECORDS SUMMARY | 2023-12-06 23:36 | External Medical Summary | Summary of Care ---
Author Name Unknown Organization [facility] Address [address] [place] [address] Phone [phone] Care Team Providers Care Law Examiner Name Role Phone RonnellToshia piper Beverly CARBALLO Primary Care Provider [phone] Reason for Referral * Precert (Within 10 days (routine)) - Pending Review Specialty Diagnoses / Procedures Referred By Contac t Referred To Contact Cardiac Studies Diagnoses Pleural effusion Lower extremity edema Procedures ECHO, COMPLETE (2D), TRANS-THORACIC Queta Hopson PA-C [address] [place] [address] Referral ID Status Reason Start Date Expiration Date Visits Requested Visits Authorized [id number] Pending Review Precert 08/08/2023 999 999 * Evaluate & Treat - Unlimited Visits (Within 10 days (routine)) - Pending Review Specialty Diagnoses / Procedures Referred By Contac t Referred To Contact Pulmonary Diseases / Pulmonary Diagnoses Lung nodule Queta Hopson PA-C [address] [place] [address] Referral ID Status Reason Start Date Expiration Date Visits Requested Visits Authorized [id number] Pending Review Specialty Services Required 08/08/2023 999 999 Question Answer Referral Priority Within 10 Days (Routine) Primary Reason for Referral? Lung Nodule/Mass Reason for Visit * Reason Onset Date Comments Test Results 08/08/2023 CT scan and US Encounter Details Date Type Department Care Team (Late st Contact Info) Description 08/08/2023 Telephone Family Practice [facility] [place] [address] [place] [address] Queta Hopson PA-C 200 [facility] [place] [address] Test Results (CT scan and US) Allergies Active Allergy Reactions Criticality Noted Date Comments Lisinopril Other (Please comment) 05/06/2022 Burning in throat documented as of this encounter (statuses as of 08/09/2023) Medications Medication Sig Dispensed Refills Start Date [...] Respimat 2.5 MCG/ACT Inhalation Aerosol Solution (Tiotropium [place] Monohydrate)Indicati ons:COPD, very severe (HCC) Inhale 2 [...] 10 mL IV PUSH ONCE 08/08/2023 08/09/2023 Ended documented as of this encounter (statuses as of 08/09/2023) Active Problems Problem Noted Date Diagnosed Date [...] as of this encounter (statuses as of 08/09/2023) Resolved Problems Problem Noted Date Diagnosed Date Resolved Date Chronic obstructive pulmonary disease 05/11/2023 06/08/2023 Overview: Per COPD GOLD Classification documented as of this encounter (statuses as of 08/09/2023) Immunizations No known immunizationsdocumented as of this [...] encounter Miscellaneous Notes * Telephone Encounter - Jazmyn Tucker LPN - 08/09/2023 8:30 AM EST Patient called. Informed of message. Verbalized understanding. Transferred to Shani in scheduling. * Addendum Note - Queta Hopson PA-C - 08/08/2023 4:54 PM ESTAddended by: QUETA HOPSON on: 08/08/2023 04:54 PM Modules accepted: Orders * Telephone Encounter - Queta Hopson PA-C - 08/08/2023 4:53 PM EST Renal US order signed. Please assist with scheduling. * Addendum Note - Adithya Rajput LPN - 08/08/2023 4:40 PM ESTAddended by: ADITHYA RAJPUT on: 08/08/2023 04:40 PM Modules accepted: Orders * Telephone Encounter - Adithya Rajput LPN - 08/08/2023 4:34 PM EST Patient is aware of Queta's message below. Discussed everything in detail, questions answered. Patient is agreeable to getting echo and renal US. Patient is scheduled with Dr. Reynaga on Monday, 08/14- will arrive early and have labs checked before the visit. She doesn't think that her doctor in [place] ever mentioned anything about lung nodules to her. * Telephone Encounter - Queta Hopson PA-C - 08/08/2023 4:11 PM EST [...] some pulmonary nodules. Did her doctor in [place] ever make note of these? Typically we follow these up in a year to make sure they aren't changing. Please assist with scheduling echo, and a 1 week recheck after she gets labs done. documented in this encounter Plan of Treatment Upcoming Encounters Date Type Department Care Team (Late st Contact Info) Description 08/10/2023 10:15 AM EST Imaging Radiology [facility] [address] [facility] [place] [address] 08/14/2023 10:15 AM EST Office Visit General Surgery, [facility] [address] [place] [address] Paula Callahan MD [address] [place] [address] 08/14/2023 11:00 AM EST Office Visit Family Practice [facility] [address] [place] [address] Toshia Reynaga DO [address] [place] [address] 08/28/2023 9:00 AM EST Pharmacy Pharmacy Hematology Oncology [address] [address] [facility], [facility] Hem/Onc [facility] [place] [address] 12/06/2023 11:20 AM EDT Office Visit Dermatology [address] [place] [address] Toshia Mattson PA-C [address] [place] [address] [place] [address] 12/21/2023 2:00 PM EDT Office Visit Cardiology, [facility] [address] [place] [address] Huong Oseguera CRNP [address] [place] [address] 01/03/2024 11:15 AM EDT Office Visit [facility]ematology/[facility] 200 [facility] [place] [address] Zeeshan Choi MD 200 [facility] [place] [address] Scheduled Orders Name Type Priority Associated Diagnoses Orde r Schedule COMPREHENSIVE METABOLIC PANEL Lab Routine Pleural effusion Lower extremity edema Expected: 08/14/2023 (Approximate), Expires: 08/07/2024 ECHO, COMPLETE (2D), TRANS-THORACIC Echocardiology Routine Pleural effusion Lower extremity edema Expected: 08/08/2023, Expires: 09/08/2025 RENAL Medical Imaging Routine Renal cyst, acquired, [...] shot) (#1) 2023 CKD PHOS USE SMARTSET 57624 11/11/2023 11/10/2022 Albumin/Creatinine Ratio 05/11/2024 05/11/2023, 07/24 CKD HGB USE SMARTSET 14934 08/08/202408/08, 08/08/2023, 07/26/2023, Additional history exists O2 [...] kidney documented in this encounter Care Teams Law Examiner Relationship Specialty Start Date End Date Toshia Reynaga DO [address] [place] [address] PCP - General Family Medicine 12/07/22 documented as of this encounter
--- OUTSIDE RECORDS SUMMARY | 2023-12-06 23:36 | External Medical Summary | Summary of Care ---
Author Name Unknown Organization [facility] Address [address] [place] [address] Phone [phone] Care Team Providers Care Truck Cleaner Name Role Phone Ronnell Toshiatheodore Paul DO Primary Care Provider [phone] Reason for Visit * Reason Onset Date Comments STAIR Lung Nodule 08/09/2023 Encounter Details Date Type Department Care Team (Late st Contact Info) Description 08/09/2023 Telephone STAIR LUNG NODULE [address] [place], [place] [id number] Program, [facility] [address] [place] [address] STAIR Lung Nodule Allergies Active Allergy Reactions Criticality Noted Date [...] Respimat 2.5 MCG/ACT Inhalation Aerosol Solution (Tiotropium [place] Monohydrate)Indicati ons:COPD, very severe (HCC) Inhale 2 [...] encounter Miscellaneous Notes * Telephone Encounter - Irina Crowley LPN - 08/09/2023 9:14 AM EST Patient managed in STAIR Program for Pulmonary Nodule - banner cho Requested imaging from [facility] and [facility] in [place], [place] fax [phone] documented in this encounter Plan of Treatment Upcoming Encounters Date Type Department Care Team (Late st Contact Info) Description 08/10/2023 10:15 AM EST Imaging Radiology [address] [place] [address] 08/14/2023 10:15 AM EST Office Visit General Surgery, [address] [place] [address] Paula Callahan MD [address] [place] [address] 08/14/2023 11:00 AM EST Office Visit Family Practice [facility] [address] [place] [address] Toshia Reynaga DO [address] [place] [address] 08/28/2023 9:00 AM EST Pharmacy Pharmacy Hematology Oncology [facility] [address] [place] [address] [facility] Hem/Onc [address] [place] [address] 12/06/2023 11:20 AM EDT Office Visit Dermatology [address] [place] [address] Toshia Mattson PA-C [address] [place] [address] [place] [address] 12/21/2023 2:00 PM EDT Office Visit Cardiology, [facility] [address] [place] [address] Huong Oseguera CRNP [address] [place] [address] 01/03/2024 11:15 AM EDT Office Visit Hematology/Oncology [facility] 200 [facility] [place] [address] Zeeshan Choi MD 200 [facility] [place] [address] Health Maintenance Due Date Last Done Comments COVID-19 Vaccine (#1) 04/01/1936 Pneumococcal Vaccine: 65+ Years (1 - PCV) 09[birth year]29/1941 Depression Screening 1947 DTaP,Tdap,and Td Vaccines (1 - Tdap) 09/29/1954 Zoster Vaccines (1 of 2) 09/29/1985 Influenza Vaccine (FLU shot) (#1) 2023 CKD PHOS USE SMARTSET 65390 11/11/2023 11/10/2022 Albumin/Creatinine Ratio 05/11/2024 05/11/2023, 07/24 CKD HGB USE SMARTSET 17783 08/08/202408/08, 08/08/2023, 07/26/2023, Additional history exists O2 [...] filedocumented as of this encounter Care Teams Truck Cleaner Relationship Specialty Start Date End Date Toshia Reynaga DO [address] [place] [address] PCP - General Family Medicine 12/07/22 documented as of this encounter
--- OUTSIDE RECORDS SUMMARY | 2023-12-06 23:36 | External Medical Summary | Summary of Care ---
Author Name Unknown Organization [facility] Address [address] [place] [address] Phone [phone] Care Team Providers Care Starch Mangle Tender Name Role Phone Toshia Reynaga DO Primary Care Provider [phone] Reason for Visit * Reason Comments Outpatient Testing Encounter Details Date Type Department Care Team (Late st Contact Info) Description 08/15/2023 2:20 PM EST Laboratory Laboratory, [facility] 132 [facility] [place] [address] [facility] [address] [place] [address] Pleural effusion; Lower extremity edema Allergies Active Allergy Reactions Criticality Noted Date Comments Lisinopril Other (Please comment) 05/06/2022 Burning in throat documented as of this encounter (statuses as of 08/15/2023) Medications Medication Sig Dispensed Refills Start Date [...] Respimat 2.5 MCG/ACT Inhalation Aerosol Solution (Tiotropium [place] Monohydrate)Indicati ons:COPD, very severe (HCC) Inhale 2 [...] as of this encounter (statuses as of 08/15/2023) Active Problems Problem Noted Date Diagnosed Date [...] as of this encounter (statuses as of 08/15/2023) Resolved Problems Problem Noted Date Diagnosed Date Resolved Date Chronic obstructive pulmonary disease 05/11/2023 06/08/2023 Overview: Per COPD GOLD Classification documented as of this encounter (statuses as of 08/15/2023) Immunizations No known immunizationsdocumented as of this [...] st Contact Info) Description 08/28/2023 9:00 AM [facility] Pharmacy Pharmacy Hematology Oncology [facility] [address] [place] [address] [facility], [facility] Hem/Onc [address] [place] [address] 11/14/2023 9:40 AM EDT Office Visit Family [facility] [address] [place] [address] Toshia Reynaga DO [address] [place] [address] 12/06/2023 11:20 AM EDT Office Visit Dermatology [address] [place] [address] Toshia Mattson PA-C [address] [place] [address] [place] [address] 12/21/2023 2:00 PM EDT Office Visit Cardiology, [facility] [address] [place] [address] Huong Oseguera CRNP [address] [place] [address] 01/03/2024 11:15 AM EDT Office Visit Hematology/Oncology [facility] 200 [facility] [place] [address] Zeeshan Choi MD 200 [facility] [place] [address] Pending Results Name Type Priority Associated Diagnoses Date /Time COMPREHENSIVE METABOLIC PANEL Lab Routine Pleural effusion Lower extremity edema 08/15/2023 2:08 PM EST Health Maintenance Due Date Last Done Comments COVID-19 Vaccine (#1) 04/01/1936 Pneumococcal Vaccine: 65+ Years (1 - PCV) 09/29/1941 Depression Screening 1947 DTaP,Tdap,and Td Vaccines (1 - Tdap) 09/29/1954 Zoster Vaccines (1 of 2) 09/29/1985 Influenza Vaccine (FLU shot) (#1) 2023 CKD PHOS USE SMARTSET 35521 11/11/2023 11/10/2022 Albumin/Creatinine Ratio 05/11/2024 05/11/2023, 07/24 CKD HGB USE SMARTSET 36692 08/08/202408/08, 08/08/2023, 07/26/2023, Additional history exists O2 [...] as of this encounter Visit Diagnoses Diagnosis Pleural effusion Unspecified pleural effusion Lower extremity edema Edema documented in this encounter Care Teams Starch Mangle Tender Relationship Specialty Start Date End Date Toshia Reynaga DO [address] [place] [address] PCP - General Family Medicine 12/07/22 documented as of this encounter
--- OUTSIDE RECORDS SUMMARY | 2023-12-06 23:36 | External Medical Summary | Summary of Care ---
Author Name Unknown Organization [facility] Address [address] [place] [address] Phone [phone] Care Team Providers Care Night Cleaner Name Role Phone Ronnell Toshiatheodore Paul DO Primary Care Provider [phone] Encounter Details Date Type Department Care Team (Latest Contact Info) Description 06/12/2023 5:25 PM EST - 06/12/2023 11:59 PM EST Hospital Encounter Radiology Film File [address] [place] [address] Discharge Disposition: Home - Self Care Allergies Active Allergy Reactions Criticality Noted Date [...] or Wheezing. 20.1 g 12 05/16/2023 Active Acetaminophen 500 MG Oral Tablet (Tylenol) [...] 10:15 AM EST Office Visit General Surgery, [facility] [address] [place] [address] Paula Callahan MD [address] [place] [address] 08/14/2023 11:00 AM EST Office Visit Family Practice [facility] [address] [place] [address] Toshia Reynaga DO [address] [place] [address] 08/28/2023 9:00 AM EST Pharmacy Pharmacy Hematology Oncology [facility] [address] [place] [address] [facility], [facility] Hem/Onc [address] [place] [address] 12/06/2023 11:20 AM EDT Office Visit Dermatology [address] [place] [address] Toshia Mattson PA-C [address] [place] [address] [place] [address] 12/21/2023 2:00 PM EDT Office Visit Cardiology, [facility] [address] [place] [address] Huong Oseguera CRNP [address] [place] [address] 01/03/2024 11:15 AM EDT Office Visit Hematology/Oncology [facility] [address] [place] [address] Zeeshan Choi MD 200 [place] [address] Health Maintenance Due Date Last Done Comments COVID-19 Vaccine (#1) 04/01/1936 Pneumococcal Vaccine: 65+ Years (1 - PCV) 09/29/1941 Depression Screening 1947 DTaP,Tdap,and Td Vaccines (1 - Tdap) 09/29/1954 Zoster Vaccines (1 of 2) 09/29/1985 Influenza Vaccine (FLU shot) (#1) 2023 CKD PHOS USE SMARTSET [id number] 11/11/2023 11/10/2022 Albumin/Creatinine Ratio 05/11/2024 05/11/2023, 07/24 CKD HGB USE SMARTSET 56991 08/08/202408/08, 08/08/2023, 07/26/2023, Additional history exists O2 [...] Name Priority Date/Time Associated Diagnosis Comments RADIOLOGY EXAM - GENERAL RAD (IMAGES ONLY,NO REPORT) Routine 06/12/2023 5:25 PM EST documented in this encounter Results * RADIOLOGY EXAM - GENERAL RAD (IMAGES ONLY,NO REPORT) (06/12/2023 5:25 PM EST) 06/12/2023 5:23 PM EST Narrative Scheduling, Silent - 08/09/2023 7:41 PM EST This is an imaging study not interpreted or resulted by a [facility] or [facility] contracted radiologist. [facility] (RAD G [place]ER[place]) documented in this encounter Care Teams Night Cleaner Relationship Specialty Start Date End Date Toshia Reynaga DO [address] [place] [address] PCP - General Family Medicine 12/07/22 documented as of this encounter
--- OUTSIDE RECORDS SUMMARY | 2023-12-06 23:36 | External Medical Summary | Summary of Care ---
Author Name Unknown Organization [facility] Address [address] [place] [address] Phone [phone] Care Team Providers Care Drywall Foreman Name Role Phone Toshia Reynaga DO Primary Care Provider [phone] Encounter Details Date Type Department Care Team (Late st Contact Info) Description 08/15/2023 Telephone Family Practice [facility] [address] [facility] [place] [address] Raysa Watson CRNP [address] [facility] [place] [address] Allergies Active Allergy Reactions Criticality [...] Respimat 2.5 MCG/ACT Inhalation Aerosol Solution (Tiotropium [place] Monohydrate)Indicati ons:COPD, very severe (HCC) Inhale 2 [...] Telephone Encounter - Nichole Kim LPN - 08/17/2023 2:21 PM EST Myg message sent to pt. * Telephone Encounter - Raysa Watson CRNP [...] the video of how it should work: https://[employer]/us/products/spiriva/co pd/iqt-iemrbf-kllpgjvg?s_kwcid=[id number]%21e%21%21g%21%21spir toyin%20respimat&c id=grainer machine%3AGoogleAds%3A3W_SPI-COPD_HCP_GADS_US_EN_[email or web address]_RESPIMAT_g%3A%3ARespi mat_e_kwd-spiriva%20 respimat&gclid=[email or web address]&gclsrc=aw .ds She reports "turning it" [...] 9:00 AM EST Pharmacy Pharmacy Hematology Oncology [address] [address] [facility], [facility] Hem/Onc [address] [place] [address] 11/14/2023 9:40 AM EDT Office Visit Family Practice [facility] [address] [place] [address] Toshia Reynaga DO [address] [place] [address] 12/06/2023 11:20 AM EDT Office Visit Dermatology [address] [place] [address] Toshia Mattson PA-C [address] [place] [address] [place] [address] 12/21/2023 2:00 PM EDT Office Visit Cardiology, [facility] [address] [place] [address] Huong Oseguera CRNP [address] [place] [address] 01/03/2024 11:15 AM EDT Office Visit Hematology/Oncology [facility] 200 [facility] [place] [address] Zeeshan Choi MD 200 [facility] [place] [address] Health Maintenance Due Date Last Done Comments COVID-19 Vaccine (#1) 04/01/1936 Pneumococcal Vaccine: 65+ Years (1 - PCV) 09/29/1941 Depression Screening 1947 DTaP,Tdap,and Td Vaccines (1 - Tdap) 09/29/1954 Zoster Vaccines (1 of 2) 09/29/1985 Influenza Vaccine (FLU shot) (#1) 2023 CKD PHOS USE SMARTSET 24313 11/11/2023 11/10/2022 Albumin/Creatinine Ratio 05/11/2024 05/11/2023, 07/24 CKD HGB USE SMARTSET 51396 08/08/202408/08, 08/08/2023, 07/26/2023, Additional history exists O2 [...] filedocumented as of this encounter Care Teams Drywall Foreman Relationship Specialty Start Date End Date Toshia Reynaga DO [address] [place] [address] PCP - General Family Medicine 12/07/22 documented as of this encounter
--- OUTSIDE RECORDS SUMMARY | 2023-12-06 23:36 | External Medical Summary | Summary of Care ---
Author Name Unknown Organization [facility] Address [address] [place] [address] Phone [phone] Care Team Providers Care Front Office Medical Assistant Name Role Phone Ronnell Toshiatheodore Paul DO Primary Care Provider [phone] Encounter Details Date Type Department Care Team (Late st Contact Info) Description 06/12/2023 Orders Only Pulmonary Medicine, [place] [address] [place] [address] Tiffany Moreno CRNP [address] [place], [place] [id number] Allergies Active Allergy Reactions Criticality Noted Date [...] Description 08/10/2023 10:15 AM EST Imaging Radiology [facility] 132 [facility] [place] [address] 08/14/2023 10:15 AM EST Office Visit General Surgery, [facility] [address] [place] [address] Paula Callahan MD [address] [place] [address] 08/14/2023 11:00 AM EST Office Visit Family Practice [facility] [address] [place] [address] Toshia Reynaga DO [address] [place] [address] 08/28/2023 9:00 AM EST Pharmacy Pharmacy Hematology Oncology [place] [address] [place] [address] [facility], [facility] Hem/Onc [address] [place] [address] 12/06/2023 11:20 AM EDT Office Visit Dermatology [address] [place] [address] Toshia Mattson PA-C [address] [place] [address] [place] [address] 12/21/2023 2:00 PM EDT Office Visit Cardiology, [facility] [address] [place] [address] Huong Oseguera CRNP [address] [place] [address] 01/03/2024 11:15 AM EDT Office Visit Hematology/Oncology [facility] 200 [facility] [place] [address] Zeeshan Choi MD 200 [facility] [place] [address] Health Maintenance Due Date Last Done Comments COVID-19 Vaccine (#1) 04/01/1936 Pneumococcal Vaccine: 65+ Years (1 - PCV) 09/29/1941 Depression Screening 1947 DTaP,Tdap,and Td Vaccines (1 - Tdap) 09/29/1954 Zoster Vaccines (1 of 2) 09/29/1985 Influenza Vaccine (FLU shot) (#1) 2023 CKD PHOS USE SMARTSET 478[address] 11/11/2023 11/10/2022 Albumin/Creatinine Ratio 05/11/2024 05/11/2023, 07/24 CKD HGB USE SMARTSET 82212 08/08/202408/08, 08/08/2023, 07/26/2023, Additional history exists O2 [...] interpreted or resulted by a [facility] contracted radiologist. [facility] ([place]) documented in this encounter Care Teams Front Office Medical Assistant Relationship Specialty Start Date End Date Toshia Reynaga DO [address] [place] [address] PCP - General Family Medicine 12/07/22 documented as of this encounter
--- OUTSIDE RECORDS SUMMARY | 2023-12-06 23:36 | External Medical Summary ---
Author Name Unknown Address Unknown Organization [facility] [place] [address] [place] [address] Laboratory Report Ordering Provider Test Date Status MARK ANTHONY CARLSON 08/15/2023 14:08:32 Final Observation Date Value Abnormality Reference (Units ) Status BUN 08/15/2023 14:08:32 21 Above high normal 6-20 (mg/dL) Final Creatinine 08/15/2023 14:08:32 1.2 Above high normal 0.5-1.0 (mg/dL) Final Glomerular filtration rate/1.73 sq M.predicted [Volume Rate/Area] in Serum, Plasma or Blood by Creatinine-based formula (CKD-EPI) 08/15/2023 14:08:32 43 Below low normal >=60 (mL/min) Final eGFR is calculated based on the CKD-EPI 2020 equation SODIUM 08/15/2023 14:08:32 141 135-146 (m mol/L) Final Potassium 08/15/2023 14:08:32 4.1 3.5-5.1 (m mol/L) Final Cl 08/15/2023 14:08:32 101 98-107 (mm ol/L) Final CO2 08/15/2023 14:08:32 26 22-32 (mmo l/L) Final Anion gap 08/15/2023 14:08:32 14 7-15 (mmol /L) Final Glucose 08/15/2023 14:08:32 101 70-120 (mg /dL) Final Albumin 08/15/2023 14:08:32 4.2 3.8-5.0 (g /dL) Final AST (Aspartate aminotransferase) 08/15/2023 14:08:32 26 10-35 (U/L) Final Result may be falsely elevat ed due to hemolysis. Alk Phos 08/15/2023 14:08:32 50 35-130 (U/ L) Final Bilirubin, Total 08/15/2023 14:08:32 1.2 <=1 .2 (mg/dL) Final Calcium 08/15/2023 14:08:32 9.2 8.4-10.2 ( mg/dL) Final Protein 08/15/2023 14:08:32 6.4 6.0-8.3 (g /dL) Final ALT (Alanine aminotransferase) 08/15/2023 14:08:32 11 10-35 (U/L) Final Performing Location [facility] [address] [facility] [address]
--- OUTSIDE RECORDS SUMMARY | 2023-12-06 23:36 | External Medical Summary | Summary of Care ---
Author Name Unknown Organization [facility] Address [address] [place] [address] Phone [phone] Care Team Providers Care Fuel Handler Name Role Phone Toshia Reynaga DO Primary Care Provider [phone] Encounter Details Date Type Department Care Team ([facility] st Contact Info) Description 08/22/2023 Specialty Pharmacy [facility], [address] [address] Medication, [facility] Refill, [address] [address] Allergies Active Allergy Reactions Criticality Noted Date [...] Respimat 2.5 MCG/ACT Inhalation Aerosol Solution (Tiotropium [place] Monohydrate)Indicati ons:COPD, very severe (HCC) Inhale 2 [...] as of this encounter Progress Notes * My Earl CPhT - 08/22/2023 8:33 AM EST Prescribed medication: Medication: Doptelet Shipment date: 08/28 Pending Refills Delivery method: Specialty Mail Location Medication Delivered too? Prescription Address: [facility] [place] [address] My Earl CPhT [facility] 08/22/2023,8:33 AM documented in this encounter Plan of Treatment Upcoming Encounters Date Type Department Care Team (Late st Contact Info) Description 08/28/2023 9:00 AM EST Pharmacy Pharmacy Hematology Oncology [address] [place] [address] [facility], [facility] Hem/Onc [address] [place] [address] 11/14/2023 9:40 AM EDT Office Visit Family Practice [facility] [address] [place] [address] Toshia Reynaga DO [address] [place] [address] 12/06/2023 11:20 AM EDT Office Visit Dermatology [address] [place] [address] Toshia Mattson PA-C [address] [place] [address] [place] [address] 12/21/2023 2:00 PM EDT Office Visit Cardiology, [facility] [address] [place] [address] Huong Oseguera CRNP [address] [place] [address] 01/03/2024 11:15 AM EDT Office Visit Hematology/Oncology [facility] 200 [place] [address] Zeeshan Choi MD 200 [facility] [place], [place] [address] Health Maintenance Due Date Last Done Comments COVID-19 Vaccine (#1) 04[birth year]01/1936 Pneumococcal Vaccine: 65+ Years (1 - PCV) 09/29/1941 Depression Screening 1947 DTaP,Tdap,and Td Vaccines (1 - Tdap) 09/29/1954 Zoster Vaccines (1 of 2) 09/29/1985 Influenza Vaccine (FLU shot) (#1) 2023 CKD PHOS USE SMARTSET 96583 11/11/2023 11/10/2022 Albumin/Creatinine Ratio 05/11/2024 05/11/2023, 07/24 CKD HGB USE SMARTSET 67741 08/08/202408/08, 08/08/2023, 07/26/2023, Additional history exists O2 [...] as of this encounter Care Teams Fuel Handler Relationship Specialty Start Date End Date Toshia Reynaga DO [address] [place] [address] PCP - General Family Medicine 12/07/22 documented as of this encounter
--- OUTSIDE RECORDS SUMMARY | 2023-12-06 23:37 | External Medical Summary | Summary of Care ---
Author Name Unknown Organization [facility] Address [address] [place] [address] Phone [phone] Care Team Providers Care Improvement Advisor Name Role Phone Toshia Reynaga DO Primary Care Provider [phone] Reason for Visit * Reason Onset Date Comments Test Results 08/08/2023 Unexpected or In determinate Result Encounter Details Date Type Department Care Team (Late st Contact Info) Description 08/08/2023 Telephone Radiology [facility]st [facility] 132 [facility] [place] [address] Queta Maldonado PA-C [address] [place] [address] Test Results (Unexpected or Indeterminate ... Allergies Active Allergy Reactions Criticality Noted Date [...] Respimat 2.5 MCG/ACT Inhalation Aerosol Solution (Tiotropium [place] Monohydrate)Indicati ons:COPD, very severe (HCC) Inhale 2 Puffs by mouth in the morning. 4 g 3 08/07/2023 Active Hospital, Clinic, or Other Facility Administered [...] encounter Miscellaneous Notes * Telephone Encounter - Chanelle Zayas OSA - 08/08/2023 1:44 PM EST Hello- The radiologist discovered an unexpected or indeterminate finding on Edilma Kennedy ([id number]) andasks that you review the following report. Study Type: CT PULMONARY EMBOLUS W CONTRAST Date of Study: 08/08/2023 IMPRESSION IMPRESSION 1. No pulmonary embolism to the [...] represents a renal cyst, but is incompletely imaged. Follow-up with renal ultrasound is recommended. Please respond to this encounter to acknowledge receipt of this message and take responsibility to ensure this report is reviewed. Thank you, JACE Colon Client Service [facility] documented in this encounter Plan of Treatment Upcoming Encounters Date Type Department Care Team (Late st Contact Info) Description 08/14/2023 10:15 AM EST Office Visit General Surgery, [facility] [address] [place] [address] Paula Callahan MD [address] [place] [address] 08/14/2023 11:00 AM EST Office Visit Family Practice [facility] [address] [place] [address] Toshia Reynaga DO [address] [place] [address] 08/28/2023 9:00 AM EST Pharmacy Pharmacy Hematology Oncology [facility] [address] [place] [address] [facility], [facility] Hem/Onc [address] [place] [address] 12/06/2023 11:20 AM EDT [facility] [address] [place] [address] [place] [address] Toshia Mattson PA-C [address] [place] [address] [place] [address] 12/21/2023 2:00 PM EDT Office Visit Cardiology, [facility] [address] [place] [address] Huong Oseguera CRNP [address] [place] [address] 01/03/2024 11:15 AM EDT Office Visit Hematology/Oncology [facility] [place] 200 [facility] [place] [address] Zeeshan Choi MD 200 [facility] [place] [address] Health Maintenance Due Date Last Done Comments COVID-19 Vaccine (#1) 04[birth year]01/1936 Pneumococcal Vaccine: 65+ Years (1 - PCV) 09/29/1941 Depression Screening 1947 DTaP,Tdap,and Td Vaccines (1 - Tdap) 09/29/1954 Zoster Vaccines (1 of 2) 09/29/1985 Influenza Vaccine (FLU shot) (#1) 2023 CKD PHOS USE SMARTSET 51442 11/11/2023 11/10/2022 Albumin/Creatinine Ratio 05/11/2024 05/11/2023, 07/24 CKD HGB USE SMARTSET 74966 08/08/202408/08, 08/08/2023, 07/26/2023, Additional history exists O2 [...] filedocumented as of this encounter Care Teams Improvement Advisor Relationship Specialty Start Date End Date Toshia Reynaga DO [address] [place] [address] PCP - General Family Medicine 12/07/22 documented as of this encounter
--- OUTSIDE RECORDS SUMMARY | 2023-12-06 23:37 | External Medical Summary ---
Author Name Unknown Address Unknown Organization [facility] [place] [address] Laboratory Report Ordering Provider Test Date Status MARK ANTHONY CARLSON 08/08/2023 10:06:22 Final Observation Date Value Abnormality Reference (Units ) Status Nucleated erythrocytes/100 leukocytes [Ratio] in Blood by Automated count 08/08/2023 10:06:22 Final Elliptocytes [Presence] in Blood by Light microscopy 08/08/2023 10:06:22 Moderate Abnormal None Seen Final Performing Location [facility] [place] [address]
--- OUTSIDE RECORDS SUMMARY | 2023-12-06 23:37 | External Medical Summary ---
Author Name Unknown Address Unknown Organization [facility] [address] [place] [address] Laboratory Report Ordering Provider Test Date Status MARK ANTHONY CARLSON 08/08/2023 10:06:22 Final Observation Date Value Abnormality Reference (Units ) Status BUN 08/08/2023 10:06:22 29 Above high normal 6-20 (mg/dL) Final Creatinine 08/08/2023 10:06:22 1.2 Above high normal 0.5-1.0 (mg/dL) Final Glomerular filtration rate/1.73 sq M.predicted [Volume Rate/Area] in Serum, Plasma or Blood by Creatinine-based formula (CKD-EPI) 08/08/2023 10:06:22 44 Below low normal >=60 (mL/min) Final eGFR is calculated based on the CKD-EPI 2020 equation SODIUM 08/08/2023 10:06:22 143 135-146 (m mol/L) Final Potassium 08/08/2023 10:06:22 4.4 3.5-5.1 (m mol/L) Final Cl 08/08/2023 10:06:22 107 98-107 (mm ol/L) Final CO2 08/08/2023 10:06:22 27 22-32 (mmo l/L) Final Anion gap 08/08/2023 10:06:22 9 7-15 (mmol /L) Final Glucose 08/08/2023 10:06:22 92 70-120 (mg /dL) Final Albumin 08/08/2023 10:06:22 4.0 3.8-5.0 (g /dL) Final AST (Aspartate aminotransferase) 08/08/2023 10:06:22 24 10-35 (U/L) Fin al Alk Phos 08/08/2023 10:06:22 49 35-130 (U/ L) Final Bilirubin, Total 08/08/2023 10:06:22 1.2 <=1 .2 (mg/dL) Final Calcium 08/08/2023 10:06:22 9.5 8.4-10.2 ( mg/dL) Final Protein 08/08/2023 10:06:22 6.6 6.0-8.3 (g /dL) Final ALT (Alanine aminotransferase) 08/08/2023 10:06:22 <5 Below low normal 10-35 (U/L) Final Performing Location [facility] [address] [place] [address]
--- OUTSIDE RECORDS SUMMARY | 2023-12-06 23:37 | External Medical Summary | Summary of Care ---
Author Name Unknown Organization [facility] Address [address] [place] [address] Phone [phone] Care Team Providers Care Instructional Developer Name Role Phone Toshia Reynaga DO Primary Care Provider [phone] Reason for Visit * Reason Onset Date Comments Test Results 08/08/2023 Unexpected or In determinate Result Encounter Details Date Type Department Care Team (Late st Contact Info) Description 08/08/2023 Telephone Radiology [facility] 1st [facility] 132 [facility] [place] [address] Queta Maldonado PA-C [address] [place] [address] Test Results (Unexpected or Indeterminate ... Allergies [...] Respimat 2.5 MCG/ACT Inhalation Aerosol Solution (Tiotropium [place] Monohydrate)Indicati ons:COPD, very severe (HCC) Inhale 2 [...] Encounter - Queta Maldonado PA-C - 08/08/2023 3:35 PM EST ackowledged * Telephone Encounter - Chanlele Zayas OSA - 08/08/2023 1:44 PM EST Sarah- The radiologist discovered an unexpected or indeterminate finding on Edilma Kennedy ([id number]) andasks that you review the following report. [...] reviewed. Thank you, JACE Colon Client Service [facility] documented in this encounter Plan of Treatment Upcoming Encounters Date Type Department Care Team (Late st Contact Info) Description 08/14/2023 10:15 AM EST Office Visit General Surgery, [facility] 132 [place] [address] Paula Callahan MD 132 [place] [address] 08/14/2023 11:00 AM EST Office Visit Family Practice [facility] 132 [place] [address] Toshia Reynaga DO [address] [place] [address] 08/28/2023 9:00 AM EST Pharmacy Pharmacy Hematology Oncology [facility] [address] [facility] [address] [facility], [facility] [address] [facility] [address] 12/06/2023 11:20 AM EDT Office Visit Dermatology [address] [place] [address] Toshia Mattson PA-C [address] [place] [address] [place] [address] 12/21/2023 2:00 PM EDT Office Visit Cardiology, [facility] [address] [place] [address] Huong Oseguera CRNP [address] [place] [address] 01/03/2024 11:15 AM EDT Office Visit Hematology/Oncology [facility] [address] [place] [address] Zeeshan Choi MD [address] [place] [address] Health Maintenance Due Date Last Done Comments COVID-19 Vaccine (#1) 04/01/1936 Pneumococcal Vaccine: 65+ Years (1 - PCV) 09/29/1941 Depression Screening 1947 DTaP,Tdap,and Td Vaccines (1 - Tdap) 09/29/1954 Zoster Vaccines (1 of 2) 09/29/1985 Influenza Vaccine (FLU shot) (#1) 2023 CKD PHOS USE SMARTSET 68267 11/11/2023 11/10/2022 Albumin/Creatinine Ratio 05/11/2024 05/11/2023, 07/24 CKD HGB USE SMARTSET 70930 08/08/202408/08, 08/08/2023, 07/26/2023, Additional history exists O2 [...] filedocumented as of this encounter Care Teams Instructional Developer Relationship Specialty Start Date End Date Toshia Reynaga DO [address] [place] [address] PCP - General Family Medicine 12/07/22 documented as of this encounter
--- OUTSIDE RECORDS SUMMARY | 2023-12-06 23:37 | External Medical Summary | Summary of Care ---
Author Name Unknown Organization [facility] Address [address] [place] [address] Phone [phone] Care Team Providers Care Small Arms Repairer Name Role Phone Toshia Reynaga DO Primary Care Provider [phone] Reason for Visit * Reason Onset Date Comments Advice 08/07/2023 FYI 08/07/2023 Encounter Details Date Type Department Care Team (Late st Contact Info) Description 08/07/2023 Telephone Family Practice [facility] [address] [place] [address] Toshia Reynaga DO [address] [place] [address] Advice; Allergies Active Allergy Reactions Criticality Noted Date [...] 06/18/2022 Active Avatrombopag Maleate 20 MG Oral TabletIndications: [...] Respimat 2.5 MCG/ACT Inhalation Aerosol Solution (Tiotropium [place] Monohydrate)Indica tions:COPD, very severe (HCC) Inhale 2 Puffs by mouth in the morning. 4 g 3 08/07/2023 Active Spiriva Respimat 2.5 MCG/ACT Inhalation Aerosol Solution (Tiotropium [place] Monohydrate)Indica tions:COPD, very severe (HCC) Inhale 2 Puffs by mouth in the morning. 4 g 3 05/16/2023 4 Discontinue d(Refill) Hospital, Clinic, or Other [...] Telephone Encounter - Francisco Owen OSA - 08/07/2023 3:37 PM EST Called and spoke to pt, scheduled acute appt tomorrow at . Pt is completely out of Spiriva and has been using Albuterol more often, as she finds she needs it more without the other. Pt mentioned she had a lot of trouble breathing this morning and nearly went to the hospital. * Telephone Encounter - Zohra Fernandez LPN - 08/07/2023 12:52 PM EST Please see note below regarding apt for pt tomorrow. * Telephone Encounter - Zohra Fernandez LPN - 08/07/2023 12:51 PM EST You can try sending not sure [employer] insurance will cover it. * Telephone Encounter - Toshia Reynaga DO - 08/07/2023 12:13 PM EST Please use same day appt for tomorrow Acute leg swelling needs eval Can I send in a new script for spiriva? * Telephone Encounter - Zohra Fernandez LPN - 08/07/2023 11:49 AM EST Pt stopped in and has some issues with her Rt leg swelling, has elevated the leg and still remains swollen. Also the Spriva inhaler malfunctioned and [facility] would not refill as too soon. They also will not do anything about retuning it to be replaced. Pt has apt next Monday and aware to keep apt.Please advise in the pt's portal with any advice. Pt is taking all meds as directed. documented in this encounter Plan of Treatment Upcoming Encounters Date Type Department Care Team (Late st Contact Info) Description 08/08/2023 9:00 AM EST Office [facility] [address] [place] [address] Queta Maldonado PA-C [address] [place] [address] 08/14/2023 10:15 AM EST Office Visit General Surgery, [facility] [address] [place] [address] Paula Callahan MD [address] [place] [address] 08/14/2023 11:00 AM EST Office Visit Family Practice [facility] [address] [place] [address] Toshia Reynaga DO [address] [place] [address] 08/28/2023 9:00 AM EST Pharmacy Pharmacy Hematology Oncology [facility] [address] [place] [address] [facility], [facility] Clinic Hem/Onc [address] [place] [address] 12/06/2023 11:20 AM EDT Office Visit Dermatology [address] [place] [address] Toshia Mattson PA-C [address] [place] [address] [place] [address] 12/21/2023 2:00 PM EDT Office Visit Cardiology, [facility] [address] [place] [address] Huong Oseguera CRNP [address] [place] [address] 01/03/2024 11:15 AM EDT Office Visit Hematology/Oncology [facility] [place] 200 [facility] [place] [address] Zeeshan Choi MD 200 [facility] [place] [address] Health Maintenance Due Date Last Done Comments COVID-19 Vaccine (#1) 04/01/1936 Pneumococcal Vaccine: 65+ Years (1 - PCV) 09/29/1941 Depression Screening 1947 DTaP,Tdap,and Td Vaccines (1 - Tdap) 09/29/1954 Zoster Vaccines (1 of 2) 09/29/1985 Influenza Vaccine (FLU shot) (#1) 2023 CKD PHOS USE SMARTSET 77792 11/11/2023 11/10/2022 Albumin/Creatinine Ratio 05/11/2024 05/11/2023, 07/24 CKD HGB USE SMARTSET 75713 07/26/202407/26, 07/26/2023, 06/20/2023, Additional history exists O2 ASSESSMENT COMPLETED IN PAST YEAR FOR COPD 07/28/2024 07/28/2023 DXA Scan 12/07/2032 12/07/2022 Alpha-1 Antitrypsin Completed [...] classified documented in this encounter Care Teams Small Arms Repairer Relationship Specialty Start Date End Date Toshia Reynaga DO [address] [place] [address] PCP - General Family Medicine 12/07/22 documented as of this encounter
--- OUTSIDE RECORDS SUMMARY | 2023-12-06 23:37 | External Medical Summary ---
Author Name Unknown Address Unknown Organization [facility] [place] [address] Laboratory Report Ordering Provider Test Date Status MARK ANTHONY CARLSON 08/08/2023 10:06:22 Final Observation Date Value Abnormality Reference (Units ) Status SYNC LEUKOCYTES IN BLOOD BY AUTOMATED COUNT 08/08/2023 10:06:22 8.54 4.00-10.80 (K/uL) Final Segs 08/08/2023 10:06:22 73.0 40.0-75.0 (%) Final Lymphs % 08/08/2023 10:06:22 15.0 Below low normal 18.0-42.0 (%) Final Monos 08/08/2023 10:06:22 9.3 1.0-11.0 (%) Final Eosinophils 08/08/2023 10:06:22 2.0 0.0-6.0 (%) Final Basos 08/08/2023 10:06:22 0.7 0.0-2.0 (%) Final Absolute Segs 08/08/2023 10:06:22 6.24 1.80-7.70 (K/uL) Final Lymphs, absolute 08/08/2023 10:06:22 1.28 1.00-4.80 (K/ul) Final Monos, Abs 08/08/2023 10:06:22 0.79 0.00-1.10 (K/uL) Final Eos, Abs 08/08/2023 10:06:22 0.17 0.00-0.70 (K/uL) Final Basos, Abs 08/08/2023 10:06:22 0.06 0.00-0.20 (K/uL) Final Performing Location [facility] [place] [address]
--- OUTSIDE RECORDS SUMMARY | 2023-12-06 23:37 | External Medical Summary | Summary of Care ---
Author Name Unknown Organization [facility] Address [address] [place] [address] Phone [phone] Care Team Providers Care Sleeve Baster Name Role Phone Toshia Reynaga DO Primary Care Provider [phone] Reason for Visit * Reason Comments Post-Op 07/28/2023 excision of scalp/face Encounter Details Date Type Department Care Team (Latest Contact Info) Description 08/07/2023 11:15 AM EST Office Visit General Surgery, [facility] 132 [facility] [place] [address] Paula Callahan MD 132 [facility] [place] [address] Postoperative follow-up* Allergies Active Allergy Reactions Criticality Noted Date Comments Lisinopril Other (Please comment) 05/06/2022 Burning in throat documented as of this encounter (statuses as of 08/07/2023) Medications Medication Sig Dispensed Refills Start Date [...] in morning. 60 Tablet 5 03/03/2023 Active Spiriva Respimat 2.5 MCG/ACT Inhalation Aerosol Solution (Tiotropium [place] Monohydrate)Indica tions:COPD, very severe (HCC) Inhale 2 Puffs by mouth in the morning. 4 g 3 05/16/2023 Active Albuterol Sulfate HFA 108 (90 Base) [...] the morning. 90 Tablet 2 08/02/2023 Active oxyCODONE-Acetamin ophen 5-325 MG Oral Tablet (Percocet) Take 1 Tablet by mouth every 6 hours as needed for Pain, Breakthrough. 14 Tablet 0 07/28/2023 4 Discontinue d(Patient preference/ discontinua tion) Hospital, Clinic, or Other Facility Administered Medication Ordered Dose Route Frequency Start Date End Date Status Albuterol Sulfate (Proventil) (2.5 MG/3ML) 0.083% inhalation solution 2.5 mgIndications:COPD, severity to be determined (HCC) 2.5 mg NEBULIZER ONCE PRN 02/17/2023 02/17/2024 Active documented as of this encounter (statuses as of 08/07/2023) Active Problems Problem Noted Date Diagnosed Date [...] as of this encounter (statuses as of 08/07/2023) Resolved Problems Problem Noted Date Diagnosed Date Resolved Date Chronic obstructive pulmonary disease 05/11/2023 06/08/2023 Overview: Per COPD GOLD Classification documented as of this encounter (statuses as of 08/07/2023) Immunizations No known immunizationsdocumented as of this [...] Nursing Notes * Yari Gurrola LPN - 08/07/2023 10:48 AM EST Chief Complaint Patient presents with Post-Op 07/28/2023 excision of scalp/face Patient states that she has not pain and never did, everything is going good. documented in this encounter Plan of Treatment Upcoming Encounters Date Type Department Care Team (Late st Contact Info) Description 08/14/2023 10:15 AM EST Office Visit General Surgery, [facility] [address] [place] [address] Paula Callahan MD [address] [place] [address] 08/14/2023 11:00 AM EST Office Visit Family Practice [facility] [address] [place] [address] Toshia Reynaga DO [address] [place] [address] 08/28/2023 9:00 AM EST Pharmacy Pharmacy Hematology Oncology [facility] [address] [place] [address] [facility], [facility] Hem/Onc [address] [place] [address] 12/06/2023 11:20 AM EDT Office Visit Dermatology [address] [place] [address] SrinivasanToshia PA-C [address] [place] [address] [place] [address] 12/21/2023 2:00 PM EDT Office Visit Cardiology, [facility] [address] [place] [address] Huong Oseguera CRNP [address] [place] [address] 01/03/2024 11:15 AM EDT Office Visit Hematology/Oncology [facility] [place] [address] [place] [address] Zeeshan Choi MD [address] [place] [address] Health Maintenance Due Date Last Done Comments COVID-19 Vaccine (#1) 04/01/1936 Pneumococcal Vaccine: 65+ Years (1 - PCV) 09/29/1941 Depression Screening 1947 DTaP,Tdap,and Td Vaccines (1 - Tdap) 09/29/1954 Zoster Vaccines (1 of 2) 09/29/1985 Influenza Vaccine (FLU shot) (#1) 2023 CKD PHOS USE SMARTSET 10688 11/11/2023 11/10/2022 Albumin/Creatinine Ratio 05/11/2024 05/11/2023, 07/24 CKD HGB USE SMARTSET 94141 07/26/202407/26, 07/26/2023, 06/20/2023, Additional history exists O2 [...] surgery documented in this encounter Care Teams Sleeve Baster Relationship Specialty Start Date End Date Toshia Reynaga DO [address] [place] [address] PCP - General Family Medicine 12/07/22 documented as of this encounter
--- OUTSIDE RECORDS SUMMARY | 2023-12-06 23:37 | External Medical Summary | Summary of Care ---
Author Name Unknown Organization [facility] Address [address] [place] [address] Phone [phone] Care Team Providers Care Plastic Roller Name Role Phone Toshia Reynaga DO Primary Care Provider [phone] Reason for Visit * Reason Onset Date Comments Advice 08/07/2023 FYI 08/07/2023 Encounter Details Date Type Department Care Team (Late st Contact Info) Description 08/07/[address] [facility] [address] [place] [address] Toshia Reynaga DO [address] [facility] [place] [address] Advice; Allergies Active Allergy Reactions Criticality Noted [...] Respimat 2.5 MCG/ACT Inhalation Aerosol Solution (Tiotropium Arvin Monohydrate)Indica tions:COPD, very severe (HCC) Inhale 2 Puffs by mouth in the morning. 4 g 3 08/07/2023 Active Spiriva Respimat 2.5 MCG/ACT Inhalation Aerosol Solution (Tiotropium Arvin Monohydrate)Indica tions:COPD, very severe (HCC) Inhale 2 [...] Team (Late st Contact Info) Description 08/08/2023 12:00 PM EST Imaging Radiology [facility] 1st [facility] 132 [facility] [place] [address] 08/08/2023 1:30 PM EST Imaging Vascular Lab, [facility] 2nd [facility] [place] [facility] [place] [address] 08/14/2023 10:15 AM EST Office Visit General Surgery, [facility] [address] [place] [address] Paula Callahan MD [address] [place] [address] 08/14/2023 11:00 AM EST Office Visit Family Practice [facility] [address] [place] [address] Toshia Reynaga DO [address] [place] [address] 08/28/2023 9:00 AM EST Pharmacy Pharmacy Hematology Oncology [facility] [address] [place] [address] [facility] Hem/Onc [address] [place] [address] 12/06/2023 11:20 AM EDT Office Visit Dermatology [address] [place] [address] Toshia Mattson PA-C [address] [place] [address] [place] [address] 12/21/2023 2:00 PM EDT Office Visit Cardiology, [facility] [address] [place] [address] Huong Oseguera CRNP [address] [place] [address] 01/03/2024 11:15 AM EDT Office Visit Hematology/Oncology [facility] [place] [address] Zeeshan Choi MD 200 [facility] [place] [address] Health Maintenance Due Date Last Done Comments COVID-19 Vaccine (#1) 04[birth year]01/1936 Pneumococcal Vaccine: 65+ Years (1 - PCV) 09/29/1941 Depression Screening 1947 DTaP,Tdap,and Td Vaccines (1 - Tdap) 09/29/1954 Zoster Vaccines (1 of 2) 09/29/1985 Influenza Vaccine (FLU shot) (#1) 2023 CKD PHOS USE SMARTSET 60297 11/11/2023 11/10/2022 Albumin/Creatinine Ratio 05/11/2024 05/11/2023, 07/24 CKD HGB USE SMARTSET 64705 07/26/202407/26, 07/26/2023, 06/20/2023, Additional history exists O2 [...] classified documented in this encounter Care Teams Plastic Roller Relationship Specialty Start Date End Date Toshia Reynaga DO [address] [place] [address] PCP - General Family Medicine 12/07/22 documented as of this encounter
--- OUTSIDE RECORDS SUMMARY | 2023-12-06 23:37 | External Medical Summary | Summary of Care ---
Author Name Unknown Organization [facility] Address [address] [place] [address] Phone [phone] Care Team Providers Care Clinical Psychologist Private Practice Name Role Phone Toshia Reynaga DO Primary Care Provider [phone] Reason for Referral * Precert (Within 24 hrs (call dept; emergent)) - Authorized Specialty Diagnoses / Procedures Referred By Contac t Referred To Contact Radiology Diagnoses Edema of right lower leg Right calf pain SOB (shortness of breath) Procedures CT PULMONARY EMBOLUS W CONTRAST Queta Maldonado PA-C [address] [place] [id number] Referral ID Status Reason Start Date Expiration Date V isits Requested Visits Authorized [id number] Authorized 08/08/2023 09/07/2023 999 999 Reason for Visit * Reason Comments Acute Leg swelling Encounter Details Date Type Department Care Team (Late st Contact Info) Description 08/08/2023 9:00 AM EST [facility] [address] [place] [address] Queta Maldonado PA-C [address] [place] [address] Edema of right lower leg*; Right calf pain; SOB (shortness of breath); Protein-calorie malnutrition, unspecified severity (HCC); COPD, very severe (HCC); Chronic ITP (idiopathic thrombocytopenia) (HCC); Stage 3a [...] MG Oral TabletIndications:Ch ronic ITP (idiopathic thrombocytopenia) ([facility]) Take 2 tablets (40mg) by mouth in morning. 60 Tablet 5 03/03/2023 Active Albuterol Sulfate HFA 108 (90 Base) MCG/ACT Inhalation Aerosol SolutionIndications: COPD, very severe ([facility]) Inhale 2 Puffs by mouth every 4 [...] Respimat 2.5 MCG/ACT Inhalation Aerosol Solution (Tiotropium [place] Monohydrate)Indicati ons:COPD, very severe (HCC) Inhale 2 [...] Sign Reading Time Taken Comments Blood Pressure 104/60 08/08/2023 9:11 AM EST Pulse 62 08/08/2023 9:11 AM EST Temperature 36.6 C (97.8 F) 08/08/2023 9:11 AM ES T Respiratory Rate 16 08/08/2023 9:11 AM EST Oxygen Saturation 95% 08/08/2023 9:11 AM EST Inhaled Oxygen Concentration - - Weight 55.8 kg (123 lb 1.9 oz) 08/08/2023 9:11 A M EST Height 152.4 cm (5') 08/08/2023 9:11 AM EST Body Mass Index 24.05 08/08/2023 9:11 AM EST documented in this encounter Progress Notes * Queta Maldonado PA-C - 08/08/2023 9:43 AM EST Subjective Edilma Kennedy is a 87 year old female that presents for Acute (Leg swelling/) 87 y/o female presents c/o right lower leg edema, pain x 1 week that is getting progressively worse. Pt states she started with right leg swelling about a week ago. She then started having right kneepain. Notes she fell on that knee over but it wasn't hurting until recently. Also has been having a lot worse shortness of breath the last few days, thought it was just because of the weather and running out of her Spiriva. Her son states she sits around a lot, doesn't move, and dangles her feet off the bed or chair a lot. They did try elevating her legs but this did not help. She denies cough, chest pain, chest heaviness. This morning her right leg was even more swollen and painful, so they decided to get it checked out. Allergies and medications reviewed. No hx of blood clots. Allergies and medications reviewed. Objective BP 104/60 | Pulse 62 | Temp 36.6 C (97.8 F) (Tympanic) | Resp 16 | Ht 1.524 m (5') | Wt 55.8 kg(123 lb 1.9 oz) | SpO2 95% | BMI 24.05 kg/m | BSA 1.54 m Body mass index is 24.05 kg/m. BP Readings from Last 3 Encounters: 08/08/23 104/60 07/28/23 122/44 07/04/23 120/44 Wt Readings from Last 3 Encounters: 08/08/23 55.8 kg (123 lb 1.9 oz) 07/28/23 54.4 kg (120 lb) 07/04/23 54.8 kg (120 lb 14.4 oz) Physical Exam Vitals and nursing note reviewed. Constitutional: General: She is not in acute distress. Appearance: Normal appearance. HENT: Head: Normocephalic and atraumatic. Eyes: General: No scleral icterus. Extraocular Movements: Extraocular movements intact. Conjunctiva/sclera: Conjunctivae normal. Pupils: Pupils are equal, round, and reactive to light. Cardiovascular: Rate and Rhythm: Normal rate and regular rhythm. Heart sounds: No murmur heard. No friction rub. No gallop. Pulmonary: Effort: Pulmonary effort is normal. Breath sounds: Normal breath sounds. No stridor. No wheezing, rhonchi or rales. Musculoskeletal: Cervical back: Neck supple. Right lower leg: Edema (significant RLE edema, +2 pitting, warm posterior calf that is tender to palpation) present. Left lower leg: Edema (trace edema, posterior calf cool and non-tender) present. Skin: General: Skin is warm and dry. Findings: No rash. Neurological: General: No focal deficit present. Mental Status: She is alert and oriented to person, place, and time. Psychiatric: Mood and Affect: Mood normal. Behavior: Behavior normal. Assessment and plan 1. Edema of right lower leg - VASC DUPLEX VENOUS LE UNILAT - CT PULMONARY EMBOLUS W CONTRAST; Future 2. Right calf pain - VASC DUPLEX VENOUS LE UNILAT - CT PULMONARY EMBOLUS W CONTRAST; Future 3. SOB (shortness of breath) - CT PULMONARY EMBOLUS W CONTRAST; Future 4. Protein-calorie malnutrition, unspecified severity (HCC) 5. COPD, very severe (HCC) -ran out of spiriva because she didn't know how to use it and accidentally used it all in 4 days 6. Chronic ITP (idiopathic thrombocytopenia) (HCC) - CBC WITH WBC DIFFERENTIAL; Future 7. Stage 3a chronic kidney disease (HCC) - COMPREHENSIVE METABOLIC PANEL; Future -stat venous duplex of the right leg and stat CTA chest for PE today at [facility] -stat CBC and CMP to be done prior- these were all scheduled while patient was in the office -will plan to call with results -to ER with acute worsening symptoms Total time today including reviewing chart before the visit, pertinent labs, imaging reports, face to face time, and documentation time was 30 minutes. The above was discussed and understanding was expressed. Queta Maldonado PA-C documented in this encounter Nursing Notes * Aline Mcmahon LPN - 08/08/2023 9:09 AM EST Patient presents today for bilateral lower leg edema. She said that her right leg seems to be worseand her right knee is hurting her as well. documented in this encounter Plan of Treatment Upcoming Encounters Date Type Department Care Team (Late st Contact Info) Description 08/08/2023 12:00 PM EST Imaging Radiology [facility] 1st [facility] [place] [address] [address] 08/08/2023 1:30 PM EST Imaging Vascular Lab, [facility] 2nd [facility] [place] [address] [place] [address] 08/14/2023 10:15 AM EST Office Visit General Surgery, [facility] [address] [place] [address] Paula Callahan MD [address] [place] [address] 08/14/2023 11:00 AM EST Office Visit Family Practice [facility] [address] [place] [address] Toshia Reynaga DO [address] [place] [address] 08/28/2023 9:00 AM EST Pharmacy Pharmacy Hematology Oncology [address] [address] [facility] [address] [place] [address] 12/06/2023 11:20 AM EDT Office Visit Dermatology [address] [place] [address] Toshia Mattson PA-C [address] [place] [address] [place] [address] 12/21/2023 2:00 PM EDT Office Visit Cardiology, [facility] [address] [place] [address] Huong Oseguera CRNP [address] [place] [address] 01/03/2024 11:15 AM EDT Office Visit Hematology/Oncology [facility] 200 [facility] [place] [address] Zeeshan Choi MD 200 [facility] [place] [address] Pending Results Name Type Priority Associated Diagnoses Date /Time CBC WITH WBC DIFFERENTIAL Lab Routine Chronic ITP (idiopathic thrombocytopenia) (HCC) 08/08/2023 10:06 AM EST COMPREHENSIVE METABOLIC PANEL Lab STAT Stage 3a chronic kidney disease (HCC) 08/08/2023 10:06 AM EST Scheduled Orders Name Type Priority Associated Diagnoses Orde r Schedule VASC DUPLEX VENOUS LE UNILAT Medical Imaging STAT Edema of right lower leg Right calf pain Ordered: 08/08/2023 CT PULMONARY EMBOLUS W CONTRAST Medical Imaging STAT Edema of right lower leg Right calf pain SOB (shortness of breath) Expected: 08/08/2023, Expires: 09/08/2024 CBC WITH WBC DIFFERENTIAL Lab Routine Chronic ITP (idiopathic thrombocytopenia) (HCC) Expected: 08/08/2023 (Approximate), Expires: 08/08/2024 COMPREHENSIVE METABOLIC PANEL Lab STAT Stage 3a chronic kidney disease (HCC) Expected: 08/08/2023 (Approximate), Expires: 08/07/2024 Health Maintenance Due Date Last Done Comments COVID-19 Vaccine (#1) 04[birth year]01/1936 Pneumococcal Vaccine: 65+ Years (1 - PCV) 09/29/1941 Depression Screening 1947 DTaP,Tdap,and Td Vaccines (1 - Tdap) 09/29/1954 Zoster Vaccines (1 of 2) 09/29/1985 Influenza Vaccine (FLU shot) (#1) 2023 CKD PHOS USE SMARTSET 13679 11/11/2023 11/10/2022 Albumin/Creatinine Ratio 05/11/2024 05/11/2023, 07/24 CKD HGB USE SMARTSET 37854 07/26/202407/26, 07/26/2023, 06/20/2023, Additional history exists O2 [...] as of this encounter Visit Diagnoses Diagnosis Edema of right lower leg- Primary Right calf pain SOB (shortness of breath) Shortness of breath Protein-calorie malnutrition, unspecified severity (HCC) COPD, very severe (HCC) Chronic airway obstruction, not elsewhere classified Chronic ITP (idiopathic thrombocytopenia) (HCC) Immune thrombocytopenic purpura Stage 3a chronic kidney disease (HCC) documented in this encounter Care Teams Clinical Psychologist Private Practice Relationship Specialty Start Date End Date Toshia Reynaga DO [address] [place] [address] PCP - General Family Medicine 12/07/22 documented as of this encounter"
--- OUTSIDE RECORDS SUMMARY | 2023-12-06 23:37 | External Medical Summary | Summary of Care ---
Author Name Unknown Organization [facility] Address [address] [place] [address] Phone [phone] Care Team Providers Care School Bus Dispatcher Name Role Phone Toshia Reynaga DO Primary Care Provider [phone] Reason for Visit * Reason Comments Outpatient Testing Encounter Details Date Type Department Care Team (Late st Contact Info) Description 08/08/2023 10:10 AM EST Laboratory Laboratory [facility] [address] [place] [address] [facility] Scenery [address] [place] [address] Chronic ITP (idiopathic thrombocytopenia) (HCC); Stage 3a [...] Respimat 2.5 MCG/ACT Inhalation Aerosol Solution (Tiotropium [place] Monohydrate)Indicati ons:COPD, very severe (HCC) Inhale 2 [...] Description 08/08/2023 12:00 PM EST Imaging Radiology [facility] 1st [facility], [address] [place] [address] 08/08/2023 1:30 PM EST Imaging Vascular Lab, [facility] II 2nd Floor, [address] [place] [address] 08/14/2023 10:15 AM EST Office Visit General Surgery, [address] [place] [address] Paula Callahan MD 132 [facility] [place] [address] 08/14/2023 11:00 AM EST Office Visit Family Practice [address] [place] [address] Toshia Reynaga, [address] [place] [address] 08/28/2023 9:00 AM EST Pharmacy Pharmacy Hematology Oncology [facility] [address] [place] [address] [facility] Hem/Onc [address] [place] [address] 12/06/2023 11:20 AM EDT Office Visit Dermatology [address] [place] [address] Toshia Mattson PA-C [address] [place] [address] [place] [address] 12/21/2023 2:00 PM EDT Office Visit Cardiology, [facility] [address] [place] [address] Huong Oseguera CRNP [address] [place] [address] 01/03/2024 11:15 AM EDT Office Visit Hematology/Oncology [facility] 200 [facility] [place] [address] Zeeshan Choi MD 200 [facility] [place], [place] [address] Pending Results Name Type Priority Associated Diagnoses Date /Time CBC WITH WBC DIFFERENTIAL Lab Routine Chronic ITP (idiopathic thrombocytopenia) ([facility]) 08/08/2023 10:06 AM EST COMPREHENSIVE METABOLIC PANEL Lab STAT Stage 3a chronic kidney disease (HCC) 08/08/2023 10:06 AM EST CBC Lab Routine Chronic ITP (idiopathic thrombocytopenia) (HCC) 08/08/2023 10:06 AM EST DIFFERENTIAL, AUTOMATED Lab Routine Chronic ITP (idiopathic thrombocytopenia) ([facility]) 08/08/2023 10:06 AM EST Health Maintenance Due Date Last Done Comments COVID-19 Vaccine (#1) 04[birth year]01/1936 Pneumococcal Vaccine: 65+ Years (1 - PCV) 09/29/1941 Depression Screening 1947 DTaP,Tdap,and Td Vaccines (1 - Tdap) 09/29/1954 Zoster Vaccines (1 of 2) 09/29/1985 Influenza Vaccine (FLU shot) (#1) 2023 CKD PHOS USE SMARTSET 47836 11/11/2023 11/10/2022 Albumin/Creatinine Ratio 05/11/2024 05/11/2023, 07/24 CKD HGB USE SMARTSET 45980 07/26/202407/26, 07/26/2023, 06/20/2023, Additional history exists O2 [...] (HCC) documented in this encounter Care Teams School Bus Dispatcher Relationship Specialty Start Date End Date Toshia Reynaga DO [address] [place] [place] [address] PCP - General Family Medicine 12/07/22 documented as of this encounter
--- OUTSIDE RECORDS SUMMARY | 2023-12-06 23:37 | External Medical Summary ---
Author Name Unknown Address Unknown Organization K[facility] [place] [address] Laboratory Report Ordering Provider Test Date Status MARK ANTHONY CARLSON 08/08/2023 10:06:22 Final Observation Date Value Abnormality Reference (Units ) Status WBC, Total 08/08/2023 10:06:22 8.54 4.00-10.8 0 (K/uL) Final RBC 08/08/2023 10:06:22 2.90 3.85-5.15 (M/uL) Final Hemoglobin 08/08/2023 10:06:22 8.7 Below low normal 12 .0-15.3 (g/dL) Final HCT 08/08/2023 10:06:22 28.1 Below low normal 36. 0-45.2 (%) Final MCV 08/08/2023 10:06:22 96.9 81.5-97.5 (fL) Final MCH 08/08/2023 10:06:22 30.0 27.0-34.0 (pg) Final MCHC 08/08/2023 10:06:22 31.0 32.0-36.0 (g/dL) Final RDW 08/08/2023 10:06:22 15.8 11.5-15.5 (%) Final Platelets 08/08/2023 10:06:22 455 Above high normal 14 0-400 (K/uL) Final MPV 08/08/2023 10:06:22 10.8 6.6-11.1 ( fL) Final Performing Location [facility] [place] [address]
--- OUTSIDE RECORDS SUMMARY | 2023-12-06 23:37 | External Medical Summary | Summary of Care ---
Author Name Unknown Organization [facility] Address [address] [place] [address] Phone [phone] Care Team Providers Care Lab Technician Name Role Phone Toshia Reynaga DO Primary Care Provider [phone] Reason for Visit * Reason Onset Date Comments Test Results 08/08/2023 Unexpected or In determinate Result Encounter Details Date Type Department Care Team (Late st Contact Info) Description 08/08/2023 Telephone Radiology [facility] 1st [facility] 132 [facility] [place] [address] Queta Maldonado PA-C [address] [place] [address] Test Results (Unexpected or Indeterminate ... Allergies [...] Respimat 2.5 MCG/ACT Inhalation Aerosol Solution (Tiotropium [place] Monohydrate)Indicati ons:COPD, very severe (HCC) Inhale 2 [...] unexpected or indeterminate finding on Edilma Kennedy ([id number]) andasks that you review the following report. [...] reviewed. Thank you, JACE Colon Client Service [facility] documented in this encounter Plan of Treatment Upcoming Encounters Date Type Department Care Team (Late st Contact Info) Description 08/14/2023 10:15 AM EST Office Visit General Surgery, [facility] [address] [place] [address] Paula Callahan MD [address] [place] [address] 08/14/2023 11:00 AM EST Office Visit Family Practice [facility] [address] [place] [address] Toshia Reynaga DO [address] [place] [address] 08/28/2023 9:00 AM EST Pharmacy Pharmacy Hematology Oncology [facility] [address] [place] [address] [facility] Hem/Onc [address] [place] [address] 12/06/2023 11:20 AM EDT Office Visit [facility]at[facility] [address] [place] [address] [place] [address] Toshia Mattson PA-C [address] [place] [address] [place] [address] 12/21/2023 2:00 PM EDT Office Visit Cardiology, [facility] [address] [place] [address] Huong Oseguera CRNP [address] [place] [address] 01/03/2024 11:15 AM EDT Office Visit Hematology/Oncology [facility] [place] 200 [facility] [place] [address] Zeeshan Choi MD 200 [facility] [place] [address] Health Maintenance Due Date Last Done Comments COVID-19 Vaccine (#1) [birth year]01/1936 Pneumococcal Vaccine: 65+ Years (1 - PCV) 09/29/1941 Depression Screening 1947 DTaP,Tdap,and Td Vaccines (1 - Tdap) 09/29/1954 Zoster Vaccines (1 of 2) 09/29/1985 Influenza Vaccine (FLU shot) (#1) 2023 CKD PHOS USE SMARTSET 62202 11/11/2023 11/10/2022 Albumin/Creatinine Ratio 05/11/2024 05/11/2023, 07/24 CKD HGB USE SMARTSET 99591 08/08/202408/08, 08/08/2023, 07/26/2023, Additional history exists O2 [...] filedocumented as of this encounter Care Teams Lab Technician Relationship Specialty Start Date End Date Toshia Reynaga DO [address] [place] [address] PCP - General Family Medicine 12/07/22 documented as of this encounter
--- OUTSIDE RECORDS SUMMARY | 2023-12-06 23:38 | External Medical Summary ---
Author Name Unknown Address Unknown Organization : Laboratory Report Ordering Provider Test Date Status RONAK LYNCH 07/26/2023 10:55:52 Final Observation Date Value Abnormality Reference (Units ) Status Alpha-1 antitrypsin 07/26/2023 10:55:52 166 83-199 (mg/dL) Final
Test Performed at:
[facility]
[address] [facility]
[place] [address]
Berhane De Leon M.D., Ph.D.,Director of Laboratories Performing Location
--- OUTSIDE RECORDS SUMMARY | 2023-12-06 23:38 | External Medical Summary | Summary of Care ---
Author Name Unknown Organization [facility] Address [address] [place] [address] Phone [phone] Care Team Providers Care Noise Abatement Engineer Name Role Phone Toshia Reynaga DO Primary Care Provider [phone] Reason for Visit * Reason Comments Outpatient Testing Encounter Details Date Type Department Care Team (Late st Contact Info) Description 07/26/2023 12:20 PM EST Laboratory Laboratory, [facility] [address] [facility] [place] [address] [facility] [address] [place] [address] COPD, group B, by GOLD 2017 classification ([facility]); Chronic ITP (idiopathic thrombocytopenia) ([facility]) Allergies Active Allergy Reactions Criticality Noted Date Comments Lisinopril Other (Please comment) 05/06/2022 Burning in throat documented as of this encounter (statuses as of 07/26/2023) Medications Medication Sig Dispensed Refills Start Date [...] Respimat 2.5 MCG/ACT Inhalation Aerosol Solution (Tiotropium [place] Monohydrate)Indicati ons:COPD, very severe (HCC) Inhale 2 Puffs by mouth in the morning. 4 g 3 05/16/2023 Active Albuterol Sulfate HFA 108 (90 Base) MCG/ACT Inhalation Aerosol SolutionIndications: COPD, very severe (HCC) Inhale 2 Puffs by mouth every 4 hours as needed for Cough, Shortness of Breath or Wheezing. 20.1 g 12 05/16/2023 Active Losartan Potassium 100 MG Oral Tablet (Cozaar)Indications: HTN, goal below 140/90 Take 1 Tablet by mouth in the morning. 90 Tablet 3 06/26/2023 Active amLODIPine Besylate 10 MG Oral Tablet (Norvasc)Indications :HTN, goal below 140/90 Take 1 Tablet by mouth in the morning. 90 Tablet 3 06/26/2023 Active Bisoprolol Fumarate 5 MG Oral Tablet [...] as of this encounter (statuses as of 07/26/2023) Active Problems Problem Noted Date Diagnosed Date [...] as of this encounter (statuses as of 07/26/2023) Resolved Problems Problem Noted Date Diagnosed Date Resolved Date Chronic obstructive pulmonary disease 05/11/2023 06/08/2023 Overview: Per COPD GOLD Classification documented as of this encounter (statuses as of 07/26/2023) Social History Tobacco Use Types Packs/Day Years [...] Upcoming Encounters Date Type Department Care Team (Latest Contact Info) Description 07/27/2023 9:00 AM [facility] Pharmacy Pharmacy Hematology Oncology [facility] [address] [place] [address] Gm, [facility] Hem/Onc [address] [place] [address] 07/28/2023 11:07 AM EST Hospital Encounter [facility], Operating [facility] [address] [address] Paula Callahan MD [address] [place] [address] 07/28/2023 11:07 AM EST - 07/28/2023 12:03 PM EST Surgery [facility], Operating [facility] [address] [place] [address] Paula Callahan MD [address] [place] [address] EXCISION FACE/SCALP SUBQ TUMOR, 2 CM OR MORE 08/07/2023 11:15 AM EST Office Visit General Surgery, [facility] [address] [place] [address] Paula Callahan MD [address] [place] [address] 08/14/2023 11:00 AM EST Office Visit Family Practice [facility] [address] [place] [address] Toshia Reynaga DO [address] [place] [address] 12/06/2023 11:20 AM EDT Office Visit Dermatology [address] [place] [address] Toshia Mattson PA-C [address] [place] [address] [place] [address] 12/21/2023 2:00 PM EDT Office Visit Cardiology, [facility] [address] [place] [address] Huong Oseguera CRNP [address] [place] [address] 01/03/2024 11:15 AM EDT Office Visit Hematology/Oncology [facility] [place] [address] [place] [address] Zeeshan Choi MD [address] [place] [address] Pending Results Name Type Priority Associated Diagnoses Date /Time [id number], QN Lab Routine COPD, group B, by GOLD 2017 classification ([facility]) 07/26/2023 10:55 AM EST CBC WITH WBC DIFFERENTIAL Lab STAT Chronic ITP (idiopathic thrombocytopenia) ([facility]) 07/26/2023 10:55 AM EST CBC Lab STAT Chronic ITP (idiopathic thrombocytopenia) ([facility]) 07/26/2023 10:55 AM EST DIFFERENTIAL, AUTOMATED Lab STAT Chronic ITP (idiopathic thrombocytopenia) ([facility]) 07/26/2023 10:55 AM EST Scheduled Orders Name Type Priority Associated Diagnoses Orde r Schedule [id number] , QN Lab Routine COPD, group B, by GOLD 2017 classification ([facility]) Expected: 07/26/2023 (Approximate), Expires: 07/26/2024 Scheduled Procedures Name Priority Associated Diagnoses Date/Ti me EXCISION FACE/SCALP SUBQ MICHELLE OR, 2 CM OR MORE Sebaceous cyst 07/28/2023 11:07 AM EST Health Maintenance Due Date Last Done Comments COVID-19 Vaccine (#1) 04/01/1936 Pneumococcal Vaccine: 65+ Years (1 - PCV) 09[birth year]29[birth year]1941 Depression Screening 1947 Alpha-1 Antitrypsin 09/29/1953 DTaP,Tdap,and Td Vaccines (1 - Tdap) 09/29/1954 Zoster Vaccines (1 of 2) 09/29/1985 Influenza Vaccine (FLU shot) (#1) 2023 CKD PHOS USE SMARTSET 94631 11/11/2023 11/10/2022 Albumin/Creatinine Ratio 05/11/2024 05/11/2023, 07/24 CKD HGB USE SMARTSET 82829 06/20/202406/20, 06/20/2023, 05/11/2023, Additional history exists O2 ASSESSMENT COMPLETED IN PAST YEAR FOR COPD 07/04/2024 07/04/2023 DXA Scan 12/07/2032 12/07/2022 GARDASIL-HPV IMMUNIZATION SERIES Aged Out No longer [...] group B, by GOLD 2017 classification (HCC) 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
--- OUTSIDE RECORDS SUMMARY | 2023-12-06 23:38 | External Medical Summary | Summary of Care ---
Author Name Unknown Organization [facility] Address [address] [place] [address] Phone [phone] Care Team Providers Care Dinkey Skinner Name Role Phone Toshia Reynaga DO Primary Care Provider [phone] Reason for Visit * Reason Comments Medication Management Encounter Details Date Type Department Care Team (Late st Contact Info) Description 07/27/2023 9:00 AM [facility] Pharmacy Pharmacy Hematology Oncology [facility] [address], [place] [phone] [facility] Hem/Onc [address] [place], [place] [id number] Chronic ITP (idiopathic thrombocytopenia) (HCC)* Allergies Active Allergy Reactions Criticality Noted Date Comments Lisinopril Other (Please comment) 05/06/2022 Burning in throat documented as of this encounter (statuses as of 07/31/2023) Medications Medication Sig Dispensed Refills Start Date [...] Respimat 2.5 MCG/ACT Inhalation Aerosol Solution (Tiotropium [place] Monohydrate)Indicati ons:COPD, very severe (HCC) Inhale 2 [...] as of this encounter (statuses as of 07/31/2023) Active Problems Problem Noted Date Diagnosed Date [...] as of this encounter (statuses as of 07/31/2023) Resolved Problems Problem Noted Date Diagnosed Date Resolved Date Chronic obstructive pulmonary disease 05/11/2023 06/08/2023 Overview: Per COPD GOLD Classification documented as of this encounter (statuses as of 07/31/2023) Immunizations No known immunizationsdocumented as of this [...] this encounter Progress Notes * Winter Casiano, [facility] - 07/26/2023 2:02 PM EST MEDICATION THERAPY MANAGEMENT AVATROMBOPAG TREATMENT PROGRESS NOTE Edilma Kennedy [phone] Patient Phone Numbers Son: Christian Communication: Spoke to: Patient Treatment: Medication: Avatrombopag (Doptelet) Indication/Staging/Diagnosis Code: ITP/D69.3 Dose: 40mg daily (DI 11/03/22) Administration: with food Start Date: November 2019 Primary Resident Care Provider/Oncologist: Dr. Gabriel Choi Additional therapy: Rutiximab x 2 Interval History: Pt admitted to [facility] 05/23/22 for bleeding and PLT < 10K and transferred to [facility] 05/24/22 and discharged 06/18/22 Per OV 03/09/23, lab monitoring extended to monthly Reports increased right leg swelling. Denies pain, redness, or warmth Confirms elevating feet when sitting and denies swelling improvement States she has compression stockings but does not wear them No other concerns, tolerating therapy well Changes to medication list since last visit? No Assessment and plan: PLT above goal (50-200K) but declining from last month Hgb low but improving. Will monitor closely All other labs stable Counseled pt on s/s of VTE (redness, pain, swelling, warmth in one leg) and strongly encouraged pt to follow up with PCP for evaluation in the event her antihypertensives, such as amlodipine, are causing edema. Pt replied with hesitancy but understanding Continue current avatrombopag dose as lower doses have caused subtherapeutic PLTs Repeat labs in one month Assessment of compliance: compliant Dose adjustment needed based on lab or adverse drug reaction? No Follow up: 1 month Winter Casiano, PharmD, BCOP Clinical Pharmacist, [facility] Oral Chemotherapy [facility] 07/26/2023, 2:11 PM Pertinent labs: Latest Reference Range & Units 05/11/23 11:09 06/20/23 10:20 07/26/23 10:55 WBC 4.00 - 10.80 K/uL 6.78 4.56 8.50 HGB 12.0 - 15.3 g/dL 10.0 (L) 8.5 (L) 8.8 (L) HCT 36.0 - 45.2 % 30.9 (L) 26.2 (L) 27.3 (L) MCV 81.5 - 97.5 fL 96.0 96.0 96.5 PLT 140 - 400 K/uL 351 98 (L) 373 Absolute Neutrophils 1.80 - 7.70 K/uL 4.61 2.89 5.56 Time Spent on Encounter: 6 - 10 minutes Encounter Group: Hematology Encounter Interventions Item Category: Oral Chemotherapy Other: Avatrombopag Problem/Rationale: Effectiveness: Needs additional monitoring - Medication Requires monitoring Safety: Needs additional monitoring - Medication Requires monitoring Pharmacist Intervention(s): Lab monitoring and Toxicity monitoring Magnitude of Intervention: Monitoring with direction (Level 1) Second Item Second Item Category: Disease Related Problem/Rationale: Safety: Needs additional monitoring - Medication Requires monitoring Pharmacist Intervention(s): Refer to Provider Follow-Up and Toxicity monitoring Magnitude of Intervention: Refer patient to provider for clinic follow (Level 4) documented in this encounter Plan of Treatment Upcoming Encounters Date Type Department Care Team (Late st Contact Info) Description 08/07/2023 11:15 AM EST Office Visit General Surgery, [facility] [address] [place] [address] Paula Callahan MD [address] [place] [address] 08/14/2023 11:00 AM EST Office Visit Family Practice [facility] [address] [place] [address] Toshia Reynaga DO [address] [place] [address] 08/28/2023 9:00 AM EST Pharmacy Pharmacy Hematology Oncology [facility] [address] [place] [address] [facility] Hem/Onc [address] [place] [address] 12/06/2023 11:20 AM EDT Office Visit Dermatology [address] [place] [address] Toshia Mattson PA-C [address] [place] [address] [place] [address] 12/21/2023 2:00 PM EDT Office Visit Cardiology, [facility] [address] [place] [address] Huong Oseguera CRNP [address] [place] [address] 01/03/2024 11:15 AM EDT Office Visit Hematology/Oncology [facility] [address] [facility] [place] [address] Zeeshan Choi MD [address] [place] [address] Health Maintenance Due Date Last Done Comments COVID-19 Vaccine (#1) 04/01/1936 Pneumococcal Vaccine: 65+ Years (1 - PCV) 09[birth year]29/1941 Depression Screening 1947 DTaP,Tdap,and Td Vaccines (1 - Tdap) 09/29/1954 Zoster Vaccines (1 of 2) 09/29/1985 Influenza Vaccine (FLU shot) (#1) 2023 CKD PHOS USE SMARTSET [id number] 11/11/2023 11/10/2022 Albumin/Creatinine Ratio 05/11/2024 05/11/2023, 07/24 CKD HGB USE SMARTSET 81493 07/26/202407/26, 07/26/2023, 06/20/2023, Additional history exists O2 [...] purpura documented in this encounter Care Teams Dinkey Skinner Relationship Specialty Start Date End Date Toshia Reynaga DO [address] [place] [address] PCP - General Family Medicine 12/07/22 documented as of this encounter
--- OUTSIDE RECORDS SUMMARY | 2023-12-06 23:38 | External Medical Summary | Summary of Care ---
Author Name Unknown Organization [facility] Address [address] [place] [address] Phone [phone] Care Team Providers Care Gps Field Data Collector Name Role Phone Toshia Reynaga DO Primary Care Provider [phone] Reason for Visit * Reason Comments Follow Up 4m Encounter Details Date Type Department Care Team (Late st Contact Info) Description 07/04/2023 9:15 AM EST Office Visit Hematology/Oncology [facility] [place] [facility] [place] [address] Zeeshan Choi MD 200 [facility] [place] [address] Chronic ITP (idiopathic thrombocytopenia) (HCC)*; Anemia, unspecified type Allergies Active Allergy Reactions Criticality Noted Date Comments Lisinopril Other (Please comment) 05/06/2022 Burning in throat documented as of this encounter (statuses as of 07/04/2023) Medications Medication Sig Dispensed Refills Start Date End Date Status Cyanocobalamin 1000 MCG Oral Tablet Take 1 Tablet by mouth in the morning. 0 Active Vitamin D3 125 MCG (5000 UT) Oral Capsule Take 1 Capsule by mouth in the morning. 0 Active Bisoprolol Fumarate 5 MG Oral Tablet (Zebeta)Indications: HTN, goal below 140/90 Take by mouth 1 Tablet in the morning. 90 Tablet 3 04/25/2022 Active Polyethylene Glycol 3350 17 GM/SCOOP Oral Powder (MiraLax)Indications :Constipation, unspecified constipation type Take by mouth 17 g as needed for Constipation. Dissolve one heaping tablespoon in 8 ounces of water or juice. 507 g 3 04/25/2022 Active hydroCHLOROthiazide 12.5 MG Oral Tablet (Hydrodiuril)Indicat ions:HTN, goal below 140/90 Take by mouth 1 Tablet in the morning. 90 Tablet 3 04/26/2022 Active Lansoprazole 30 MG Oral Capsule Delayed Release (Prevacid) 1 Capsule. 0 06/18/2022 Active Avatrombopag Maleate 20 MG Oral TabletIndications:Ch ronic ITP (idiopathic thrombocytopenia) (HCC) Take 2 tablets (40mg) by mouth in morning. 60 Tablet 5 03/03/2023 Active Spiriva Respimat 2.5 MCG/ACT Inhalation Aerosol Solution (Tiotropium [place] Monohydrate)Indicati ons:COPD, very severe (HCC) Inhale 2 [...] the morning. 90 Tablet 3 06/26/2023 Active Hospital, Clinic, or Other Facility Administered Medication Ordered Dose Route Frequency Start Date End Date Status Albuterol Sulfate (Proventil) (2.5 MG/3ML) 0.083% inhalation solution 2.5 mgIndications:COPD, severity to be determined (HCC) 2.5 mg NEBULIZER ONCE PRN 02/17/2023 02/17/2024 Active documented as of this encounter (statuses as of 07/04/2023) Active Problems Problem Noted Date Diagnosed Date [...] as of this encounter (statuses as of 07/04/2023) Resolved Problems Problem Noted Date Diagnosed Date Resolved Date Chronic obstructive pulmonary disease 05/11/2023 06/08/2023 Overview: Per COPD GOLD Classification documented as of this encounter (statuses as of 07/04/2023) Social History Tobacco Use Types Packs/Day Years [...] Sign Reading Time Taken Comments Blood Pressure 117/68 07/04/2023 9:13 AM EST Pulse 64 07/04/2023 9:13 AM EST Temperature 36.3 C (97.4 F) 07/04/2023 9:13 AM ES T Respiratory Rate - - Oxygen Saturation 90% 07/04/2023 9:13 AM EST Inhaled Oxygen Concentration - - Weight 54.8 kg (120 lb 14.4 oz) 07/04/2023 9:13 AM EST Height 152.4 cm (5') 07/04/2023 9:13 AM EST Body Mass Index 23.61 07/04/2023 9:13 AM EST documented in this encounter Progress Notes * Zeeshan Choi MD - 07/04/2023 9:15 AM EST Hematology/Oncology Outpatient Clinic note [facility] [place] [address] Name: Edilma Kennedy Date: 04/25/2022 REFERRED BY: LOLITA Rice CHIEF COMPLAINT: Edilma Kennedy is a 87 year old female here today for follow-up of chronic ITP. Current treatment: - Avatrombopag (Doptelet). -she is on it since November 2019, now the dose increased to 40 mg daily since 08/09/2022. Background history: Patient with PMH including HTN and HLD. Previous patient of [facility] [place], [place]. Followed for chronic ITP. Reviewed available documentation. Diagnosed in 2014 with Platelet count 80-120K. Dropped to <10K 12/2016. Per chart review patient responded poorly to steroids and had only a brief response to IVIG. Was treated with Nplate from 03/2017 until 11/2019 when s he was switched to Doptelet. Last documented dose was 20 mg daily though patient states prior to moving she was told to increase her dose to 40 mg TIW and 20 mg all other days. Patient moved back to [place] January 23. Patient currently is taking 20 mg daily as she dropped the dose down on her own three days ago as she was afraid she would run out of medication prior to this appointment. Patien t very concerned about her weight loss. This was also being worked up in [place]. Total has lost almost 100 pounds unintentionally since being diagnosed with ITP. Has had a PET/CT which was reportedly negative per chart review. Also had upper and lower endoscopies in March 2021. Biopsies ne gative for celiac disease. Has a poor appetite but states she does force herself to eat. Is also drinking boost supplements, about two a day. PCP thought weight loss may be somewhat related to depression and recommended Mirtazapine but she never took it. Reports constipation for a long time. Reports she uses an OTC stool softener daily. Will use dulcolax if needed but then she has diarrhea for the day. Also noted on chart review is an anemia. Available labs go back to 01/2021 where Hgb was noted to bein 10-11 range. Since July 2021 Hgb has been running in the 9 range. Initially improved when started on vitamin b12 but then dropped back down to the 9 range. Anemia is normocytic. Not noted to ortiz adverse effect to Doptelet. Review of available labs notes no renal insufficiency, no iron deficiency, folic acid WNL, TSH WNL. Myeloma panel was noted to be checked but cannot see results. Two weeks ago fell and hit her head off of her TV stand. Went to the [place] ED. Has a hematoma on the left side of her head near her scientologist. This area is improving. States she previously had ecchymosis to the entire upper left side of her head. Living with her son now as her in October. Is taking a vitamin b12 supplement daily. Denies noticing any significant adverse effects from Doptelet. States she has enough medication to get to the end of the month at her current dose. Hasnot noticed any bruising or bleeding other than the trauma from her recent fall. Denies fatigue, headaches or arthralgias. Denies night sweats or fevers. Patient quit smoking in 1978. She has come the clinic for the follow-up, she came to clinic accompanied by her son in the office. Currently she is on - Avatrombopag (Doptelet). 40 mg daily since mid-July 2022, now Platelet count has remained in the normal range. Overall tolerated well, she has intermittent chronic bilateral leg edema, she was noncompliant about salt intake, now she became compliant, leg edema has improved, blood pressure has improved, no cardiac or pulmonary symptom a ambulating well by herself, appetite slightly low, slight weight loss noted, current weight around 120p 69314 lb. No fever, no night sweats. Basal cell carcinoma removed from the forehead (11/28/2022.) No past medical history on file. No family history on file. Social History Tobacco Use Smoking status: Not on file Smokeless tobacco: Not on file Substance and Sexual Activity Alcohol use: Not on file Drug use: Not on file Review of patient's allergies indicates: Allergen Reactions Lisinopril Other (Please comment) Burning in throat Current Outpatient Medications Medication Sig Dispense Refill Cyanocobalamin 1000 MCG Oral Tablet Take 1 Tablet by mouth in the morning. Vitamin D3 125 MCG (5000 UT) Oral Capsule Take 1 Capsule by mouth in the morning. Bisoprolol Fumarate 5 MG Oral Tablet (Zebeta) Take by mouth 1 Tablet in the morning. 90 Tablet 3 Polyethylene Glycol 3350 17 GM/SCOOP Oral Powder (MiraLax) Take by mouth 17 g as needed for Constipation. Dissolve one heaping tablespoon in 8 ounces of water or juice. 507 g 3 hydroCHLOROthiazide 12.5 MG Oral Tablet (Hydrodiuril) Take by mouth 1 Tablet in the morning. 90 Tablet 3 Lansoprazole 30 MG Oral Capsule Delayed Release (Prevacid) 1 Capsule. Avatrombopag Maleate 20 MG Oral Tablet Take 2 tablets (40mg) by mouth in morning. 60 Tablet 5 Spiriva Respimat 2.5 MCG/ACT Inhalation Aerosol Solution (Tiotropium [place] Monohydrate) Inhale 2 Puffs by mouth in the morning. 4 g 3 Albuterol Sulfate HFA 108 (90 Base) MCG/ACT Inhalation Aerosol Solution Inhale 2 Puffs by mouth every 4 hours as needed for Cough, Shortness of Breath or Wheezing. 20.1 g 12 Losartan Potassium 100 MG Oral Tablet (Cozaar) Take 1 Tablet by mouth in the morning. 90 Tablet 3 amLODIPine Besylate 10 MG Oral Tablet (Norvasc) Take 1 Tablet by mouth in the morning. 90 Tablet 3 Current Facility-Administered Medications Medication Dose Route Frequency Provider Last Rate Last Admin Albuterol Sulfate (Proventil) (2.5 MG/3ML) 0.083% inhalation solution 2.5 mg 2.5 mg Nebulizer Once PRN Toshia Reynaga DO 2.5 mg at 04/20/23 1131 OBJECTIVE: BP 117/68 (BP Site: Left Arm, BP Position: Sitting, BP Cuff Size: Pediatric) | Pulse 64 | Temp 36.3C (97.4 F) (Tympanic) | Ht 1.524 m (5') | Wt 54.8 kg (120 lb 14.4 oz) | SpO2 90% | BMI 23.61 kg/m | BSA 1.52 m PHYSICAL EXAM: ECOG: Performance Status 1 = 80-90% Symptoms but nearly ambulatory Constitutional: no acute distress Neuro: alert, oriented to person, place, and time, gait normal HEENT: normal: normocephalic, atraumatic;neck with no masses or tenderness; no cervical/supraclavicular lymphadenopathy CV: normal rate and rhythm, no murmur Chest: normal respiratory effort, lungs clear to auscultation Abdomen: normal: soft, bowel sounds normal, no masses, tenderness or organomegaly Extremities: no edema Skin: hematoma left scientologist area LABS: PLT Latest Ref Rng 140 - 400 K/uL 05/23/2022 <10 (LL) 06/20/2022 143 06/24/2022 164 06/28/2022 111 (L) 07/06/2022 163 07/19/2022 105 (L) 07/28/2022 54 (L) 08/04/2022 39 (L) 08/09/2022 ( dose of Doptelet increased to 40 mg daily ) <10 (LL) 08/11/2022 <10 (LL) 08/15/2022 21 (L) 08/18/2022 48 (L) 08/25/2022 262 09/01/2022 213 Blood workup done on 09/01/2022: -WBC 7100, H&H of 9.2/29.8, Platelet 213,000. MCV 89.5. -BUN/Creat: 26/0.9, Calcium 9.5, normal LFT (08/04/2022). Blood workup done on 03/09/2023: -WBC 5900, H&H of 05/23, Platelet count 746199. Blood workup done on 06/20/2023: (about a week before this blood workup, she had an accidental fallwith injury to the face, arm, she had a local bleeding from multiple sites, maybe the cause of the slight drop in the hemoglobin level). She was also seen at [facility] at that time. - WBC 4500, H&H of 8.5/26, platelet count of 98,000, - BUN/Creat: 20/1.0, calcium 9.0. - Vitamin B-12 --> 945 - Folic acid --> 18.4 - Serum iron 79, TIBC 303, iron saturation 26% - Ferritin level --> 85. IMPRESSION: Chronic ITP, normocytic anemia - Patient with PMH including HTN and HLD. Previous patient of [facility] in [place], [place]. Followed for chronic ITP. Reviewed available documentation. Diagnosed in 2014 with Platelet count 80-120K. Dropped to <10K 12/2016. Per chart review patient responded poorly to steroids and had only a brief response to IVIG. Was treated with Nplate from 03/2017 until 11/2019 when she was switched to Doptelet. Last documented dose was 20 mg daily though patient states prior to moving she was told to increase her dose to 40 mg TIW and 20 mg all other days. Patient moved back to [place] January 23. Patient currently is taking 20 mg daily as she dropped the dose down on her own three days ago as she was afraid she would run out of medicationprior to this appointment. Patient also with significant unintentional weight loss. Total has lost almost 100 pounds unintentionally since being diagnosed with ITP. Has had a PET/CT which was reportedly negative per chart review. Also had upper and lower endoscopies in March 2021. Biopsies negative for celiac disease. Also noted on chart review is an anemia. Available labs go back to 01/2021 where Hgb was noted to bein 10-11 range. Since July 2021 Hgb has been running in the 9 range. Initially improved when started on vitamin b12 but then dropped back down to the 9 range. Anemia is normocytic. Not noted to ortiz adverse effect to Doptelet. Review of available labs notes no renal insufficiency, no iron deficiency, folic acid WNL, TSH WNL. Now for the last 4 months Platelet count has remained in the normal range other than recent blood workup showed drop in the Platelet count of around 98,000, she also had an accidental fall with multiple site injury including face, upper extremity, lower back, had local bleeding, may have caused some additional drop in the hemoglobin level at that time. [facility] PLAN: She will continue - Avatrombopag (Doptelet) 40 mg once a day. Will check CBCD every monthly. Will see her back in the clinic in about [address] Zeeshan Choi Hem/Onc (This note was completed using the dictation program Fluency Direct. As such, there may be misspellings word substitutions, or other variations that should not change the essence of the clinical content of this encounter note. If there is need for further clarification, please direct questions to the provider listed above.) documented in this encounter Nursing Notes * Breanne Diaz CMA - 07/04/2023 9:14 AM EST Patient identifed by name and birthdate Do you have any concerns about pain management for today's visit? Yes. Patient instructed to discuss pain concerns with provider during the visit today Living Will or Advance Directive for Health Care as noted on the problem list. [facility] is a way you can talk to your provider on line through e-mail. Would you like to sign up? I can activate it for you? ALREADY ACTIVE Filed Vitals: 07/04/23 0913 BP: 117/68 Pulse: 64 Temp: 36.3 C (97.4 F) TempSrc: Tympanic SpO2: 90% Weight: 54.8 kg (120 lb 14.4 oz) Height: 1.524 m (5') Patient was instructed to not get up on the exam table/exam chair until directed and assisted by their provider; patient is to remain seated in the chair/ wheelchair/ exam table/ exam chair for fall prevention and safety reasons. Patient is aware to have assistance to step down off exam table/exam chair with personnel. Patient voiced full comprehension of instructions. documented in this encounter Plan of Treatment Upcoming Encounters Date Type Department Care Team (Latest Contact Info) Description 07/04/2023 10:50 AM EST Nurse Only Ancillary [facility] [address] [facility] [place] [address] [employer] Christiano camara [address] [facility] [place] [address] 07/18/2023 9:00 AM EST Pharmacy Pharmacy Hematology Oncology [facility] [address] [place] [address] [facility] Hem/Onc [address] [place] [address] 07/28/2023 7:30 AM EST Hospital Encounter OR [facility], Operating Room [facility] [address] [place] [phone] Paula Callahan MD [address] [place] [address] 07/28/2023 7:30 AM EST - 07/28/2023 8:16 AM EST Surgery OR [facility], Operating Room [facility] [address] [place] [phone] Paula Callahan MD [address] [place] [address] EXCISION FACE/SCALP SUBQ TUMOR, 2 CM OR MORE 08/07/2023 11:15 AM EST Office Visit General Surgery, [facility] [address] [place] [address] Paula Callahan MD [address] [place] [address] 08/14/2023 11:00 AM EST Office Visit Family Practice [facility] [address] [place] [address] Toshia Reynaga DO [address] [place] [address] 12/06/2023 11:20 AM EDT Office Visit Dermatology [address] [place] [phone] Toshia Mattson PA-C [address] [place] [address] [place] [address] 12/21/2023 2:00 PM EDT Office Visit Cardiology, [facility] [address] [place] [address] Huong Oseguera CRNP [address] [place] [address] 01/03/2024 11:15 AM EDT Office Visit Hematology/Oncology [facility] [place] [address] [facility] [place] [address] Zeeshan Choi MD [address] [place] [address] Scheduled Procedures Name Priority Associated Diagnoses Date/Ti me EXCISION FACE/SCALP SUBQ MICHELLE OR, 2 CM OR MORE Sebaceous cyst 07/28/2023 7:30 AM EST Health Maintenance Due Date Last Done Comments COVID-19 Vaccine (#1) 04/01/1936 Pneumococcal Vaccine: 65+ Years (1 - PCV) 09/29/1941 Depression Screening 1947 Alpha-1 Antitrypsin 09/29/1953 DTaP,Tdap,and Td Vaccines (1 - Tdap) 09/29/1954 Zoster Vaccines (1 of 2) 09/29/1985 Influenza Vaccine (FLU shot) (#1) 2023 *NEPHROLOGY REFERRAL DUE TO RESISTANT HTN 04/19/2023 CKD PHOS USE SMARTSET 53047 11/11/2023 11/10/2022 Albumin/Creatinine Ratio 05/11/2024 05/11/2023, 07/24 O2 ASSESSMENT COMPLETED IN PAST YEAR FOR COPD 05/16/2024 07/04/2023 CKD HGB USE SMARTSET 18805 06/20/202406/20, 06/20/2023, 05/11/2023, Additional history exists DXA Scan 12/07/2032 12/07/2022 GARDASIL-HPV IMMUNIZATION SERIES [...] (idiopathic thrombocytopenia) (HCC)- Primary Immune thrombocytopenic purpura Anemia, unspecified type Sebaceous cyst documented in this encounter Care Teams Gps Field Data Collector Relationship Specialty Start Date End Date Toshia Reynaga DO [address] [place] [address] PCP - General Family Medicine 12/07/22 documented as of this encounter"
--- OUTSIDE RECORDS SUMMARY | 2023-12-06 23:38 | External Medical Summary | Summary of Care ---
Author Name Unknown Organization [facility] Address [address] [place] [address] Phone [phone] Care Team Providers Care Machine Setter And Repairer Name Role Phone Cris Simons DO Primary Care Provider [phone] Reason for Visit * Reason Comments eRx-Medication Refill Encounter Details Date Type Department Care Team (Late st Contact Info) Description 07/15/2023 Refill Family Practice [facility] [address] [facility] [place] [address] Cris Simons DO [address] [facility] [address] HTN, goal below 140/90 Allergies Active Allergy Reactions Criticality Noted Date Comments Lisinopril Other (Please comment) 05/06/2022 Burning in throat documented as of this encounter (statuses as of 07/18/2023) Medications Medication Sig Dispensed Refills Start Date [...] Respimat 2.5 MCG/ACT Inhalation Aerosol Solution (Tiotropium [place] Monohydrate)Indica tions:COPD, very severe (HCC) Inhale 2 [...] EVERY MORNING 90 Tablet 1 07/18/2023 Active Bisoprolol Fumarate 5 MG Oral Tablet (Zebeta)Indication s:HTN, goal below 140/90 Take by mouth 1 Tablet in the morning. 90 Tablet 3 04/25/2022 3 Discontinued hydroCHLOROthiazid e 12.5 MG Oral Tablet (Hydrodiuril)Indic ations:HTN, goal below 140/90 Take by mouth 1 Tablet in the morning. 90 Tablet 3 04/26/2022 3 Discontinued Hospital, Clinic, or Other Facility Administered Medication Ordered Dose Route Frequency Start Date End Date Status Albuterol Sulfate (Proventil) (2.5 MG/3ML) 0.083% inhalation solution 2.5 mgIndications:COPD, severity to be determined (HCC) 2.5 mg NEBULIZER ONCE PRN 02/17/2023 02/17/2024 Active documented as of this encounter (statuses as of 07/18/2023) Active Problems Problem Noted Date Diagnosed Date [...] as of this encounter (statuses as of 07/18/2023) Resolved Problems Problem Noted Date Diagnosed Date Resolved Date Chronic obstructive pulmonary disease 05/11/2023 06/08/2023 Overview: Per COPD GOLD Classification documented as of this encounter (statuses as of 07/18/2023) Social History Tobacco Use Types Packs/Day Years [...] encounter Miscellaneous Notes * Telephone Encounter - Justin Bryant, [facility] - 07/18/2023 9:27 AM ESTSigned Prescriptions: Disp Refills Bisoprolol Fumarate 5 MG Oral Tablet (Zebe*90 Tab*1 Sig: TAKE 1 TABLET EVERY MORNINGAuthorizing Provider: CRIS SIMONS User: JUSTIN DRAKE hydroCHLOROthiazide 12.5 MG Oral Tablet (H*90 Tab*1 Sig: TAKE 1 TABLET EVERY MORNINGAuthorizing Provider: CRIS SIMONS User: JUSTIN DRAKE documented in this encounter Plan of Treatment Upcoming Encounters Date Type Department Care Team (Latest Contact Info) Description 07/28/2023 7:30 AM EST Hospital Encounter OR [facility], Operating Room [facility] [address] [place] [phone] Paula Callahan MD [address] [place] [address] 07/28/2023 7:30 AM EST - 07/28/2023 8:16 AM EST Surgery OR [facility], Operating Room [facility] [address] [place] [phone] Paula Callahan MD [address] [place] [address] EXCISION FACE/SCALP SUBQ TUMOR, 2 CM OR MORE 08/07/2023 11:15 AM EST Office Visit General Surgery, [facility] [address] [place] [address] Paula Callahan MD [address] [place] [address] 08/14/2023 11:00 AM EST Office Visit Family Practice [facility] [address] [place] [address] Cris Simons DO [address] [place] [address] 12/06/2023 11:20 AM EDT Office Visit Dermatology [address] [place] [phone] Cris Mattson PA-C [address] [place] [address] [place] [address] 12/21/2023 2:00 PM EDT Office Visit Cardiology, [facility] [address] [place] [address] Huong Oseguera CRNP [address] [place] [address] 01/03/2024 11:15 AM EDT Office Visit Hematology/Oncology [facility] 200 [facility] [place] [address] Zeeshan Choi MD [address] [place] [address] Scheduled Procedures Name Priority Associated Diagnoses Date/Ti [...] shot) (#1) 2023 CKD PHOS USE SMARTSET 06532 11/11/2023 11/10/2022 Albumin/Creatinine Ratio 05/11/2024 05/11/2023, 07/24 CKD HGB USE SMARTSET 03287 06/20/202406/20, 06/20/2023, 05/11/2023, Additional history exists O2 [...] HTN, goal below 140/90 Unspecified essential hypertension Sebaceous cyst documented in this encounter Care Teams Machine Setter And Repairer Relationship Specialty Start Date End Date Cris Simons DO [address] [place] [address] PCP - General Family Medicine 12/07/22 documented as of this encounter
--- OUTSIDE RECORDS SUMMARY | 2023-12-06 23:38 | External Medical Summary | Summary of Care ---
Author Name Unknown Organization [facility] Address [address] [place] [address] Phone [phone] Care Team Providers Care Director Of Nuclear Medicine Name Role Phone Toshia Reynaga DO Primary Care Provider [phone] Reason for Visit * Reason Comments Medication Management Encounter Details Date Type Department Care Team (Late st Contact Info) Description 07/27/2023 9:00 AM [facility] Pharmacy Pharmacy Hematology Oncology [facility] [address] [place], [place] [id number] [facility], [facility] Clinic Hem/Onc [address], [place] [id number] Chronic ITP (idiopathic thrombocytopenia) (HCC)* Allergies Active [...] Respimat 2.5 MCG/ACT Inhalation Aerosol Solution (Tiotropium Qulin Monohydrate)Indicati ons:COPD, very severe (HCC) Inhale 2 [...] this encounter Progress Notes * Winter Casiano, [facility] - 07/26/2023 2:02 PM EST MEDICATION THERAPY MANAGEMENT AVATROMBOPAG TREATMENT PROGRESS NOTE Edilma Kennedy [phone] Patient Phone Numbers Son: Christian Communication: Spoke to: Patient Treatment: Medication: Avatrombopag (Doptelet) Indication/Staging/Diagnosis Code: ITP/D69.3 Dose: 40mg daily (DI 11/03/22) Administration: with food Start Date: November 2019 Primary Blueprint Developer/Oncologist: Dr. Gabriel Choi Additional therapy: Rutiximab x 2 Interval History: Pt admitted to [facility] 05/23/22 for bleeding and PLT < 10K and transferred to [facility] 05/24/22 and discharged 06/18/22 Per OV 03/09/23, [...] month Winter Casiano, PharmD, BCOP Clinical Pharmacist, [facility] Oral Chemotherapy [facility] 07/26/2023, 2:11 PM Pertinent labs: Latest Reference [...] Care Team (Latest Contact Info) Description 07/28/2023 11:07 AM EST Hospital Encounter [facility], Operating Room [facility] [address] [phone] Paula Callahan MD [address] [place] [address] 07/28/2023 11:07 AM EST - 07/28/2023 12:03 PM EST Surgery OR [facility], Operating Room [facility] [address] [place] [phone] Paula Callahan MD [address] [place] [address] EXCISION FACE/SCALP SUBQ TUMOR, 2 CM OR MORE 08/07/2023 11:15 AM EST Office Visit General Surgery, [facility] [address] [place] [address] Paula Callahan MD [address] [place] [address] 08/14/2023 11:00 AM EST Office Visit Family Practice [facility] [address] [place] [address] Toshia Reynaga DO [address] [place] [address] 08/28/2023 9:00 AM EST Pharmacy Pharmacy Hematology Oncology [facility] [address] [facility] [address] [facility] Hem[facility]Onc [address] [facility] [address] 12/06/2023 11:20 AM EDT Office Visit Dermatology [address] [place] [address] Toshia Mattson PA-C [address] [place] [address] [place] [address] 12/21/2023 2:00 PM EDT Office Visit Cardiology, [facility] [address] [place] [address] Huong Oseguera CRNP [address] [place] [address] 01/03/2024 11:15 AM EDT Office Visit Hematology/Oncology [facility] [address] [facility] [place] [address] Zeeshan Choi MD [address] [place] [address] Scheduled Procedures Name Priority Associated Diagnoses Date/Ti [...] shot) (#1) 2023 CKD PHOS USE SMARTSET 44918 11/11/2023 11/10/2022 Albumin/Creatinine Ratio 05/11/2024 05/11/2023, 07/24 O2 ASSESSMENT COMPLETED IN PAST YEAR FOR COPD 07/04/2024 07/04/2023 CKD HGB USE SMARTSET 65804 07/26/202407/26, 07/26/2023, 06/20/2023, Additional history exists DXA Scan 12/07/2032 12/07/2022 [...] (idiopathic thrombocytopenia) (HCC)- Primary Immune thrombocytopenic purpura Sebaceous cyst documented in this encounter Care Teams Director Of Nuclear Medicine Relationship Specialty Start Date End Date Toshia Reynaga DO [address] [place] [address] PCP - General Family Medicine 12/07/22 documented as of this encounter
--- OUTSIDE RECORDS SUMMARY | 2023-12-06 23:38 | External Medical Summary | Summary of Care ---
Author Name Unknown Organization [facility] Address [address] [place] [address] Phone [phone] Care Team Providers Care Winding Department Supervisor Name Role Phone RonnellBridger pipertheodore Paul DO Primary Care Provider [phone] Reason for Visit * Auth/Cert Specialty Diagnoses / Procedures Referred By Felix soni Referred To Contact Diagnoses Sebaceous cyst Sebaceous cyst [L72.3] Procedures FACE/SCALP SUBQ TUMOR REMOVAL, 2 CM OR MORE EXCISION FACE/SCALP SUBQ TUMOR, 2 CM OR MORE Referral ID Status Reason Start Date Expiration Date Visits Re quested Visits Authorized [id number] Encounter Details Date Type Department Care Team (Latest Contact Info) Description 07/28/2023 9:46 AM EST - 07/28/2023 12:12 PM EST Hospital Encounter [facility], Operating Room [facility] [address] [place] [phone] Paula Callahan MD [address] [facility] [place] [address] Discharge Disposition: Home - Self Care Allergies Active Allergy Reactions Criticality Noted Date Comments Lisinopril Other (Please comment) 05/06/2022 Burning in throat documented as of this encounter (statuses as of 07/29/2023) Medications Medication Sig Dispensed Refills Start Date [...] Respimat 2.5 MCG/ACT Inhalation Aerosol Solution (Tiotropium [place] Monohydrate)Indicati ons:COPD, very severe (HCC) Inhale 2 [...] every 6 hours as needed. 0 Active oxyCODONE-Acetaminop hen 5-325 MG Oral Tablet (Percocet) Take 1 Tablet by mouth every 6 hours as needed for Pain, Breakthrough. 14 Tablet 0 07/28/2023 Active documented as of this encounter (statuses as of 07/29/2023) Active Problems Problem Noted Date Diagnosed Date [...] as of this encounter (statuses as of 07/29/2023) Resolved Problems Problem Noted Date Diagnosed Date Resolved Date Chronic obstructive pulmonary disease 05/11/2023 06/08/2023 Overview: Per COPD GOLD Classification documented as of this encounter (statuses as of 07/29/2023) Social History Tobacco Use Types Packs/Day Years [...] Sign Reading Time Taken Comments Blood Pressure 122/44 07/28/2023 11:47 AM EST Pulse 58 07/28/2023 11:47 AM EST Temperature 36.5 C (97.7 F) 07/28/2023 11:[address] Respiratory Rate 17 07/28/2023 11:47 AM EST Oxygen Saturation 96% 07/28/2023 11:47 AM EST Inhaled Oxygen Concentration - - Weight 54.4 kg (120 lb) 07/28/2023 10:00 AM EST Height 152.4 cm (5') 07/28/2023 10:00 AM EST Body Mass Index 23.44 07/28/2023 10:00 AM EST documented in this encounter Discharge Summaries * Paula Callahan MD - 07/28/2023 11:59 AM EST [facility] [address] [address] OUTPATIENT SURGERY DISCHARGE SUMMARY NOTE Name: Edilma Kennedy Location: [facility]/OR Date: 07/28/2023 Time: 11:59 AM Surgery Date: 07/28/2023 Procedure: Procedure(s): EXCISION FACE/SCALP SUBQ TUMOR, 2 CM OR MORE N/A Surgeon: Surgeon(s): Paula Callahan MD Discharge Diagnosis: S/P resection a cyst on scalp After examination of this patient, I have determined she is ready for discharge to home when the patient meets criteria. Discharge instructions were given to the patient. documented in this encounter Discharge Instructions * Discharge Instr - AVS* Paula Callahan MD - 07/28/2023 11:59 AM EST Discharge Date: 07/28/2023 The information below provides you with the instructions and the list of medications you need to betaking following discharge from the hospital. If you have any questions, please ask before leaving.Please carry this letter with you when you see your doctor in the clinic. If you have questions, you can reach us at the numbers above. Post Anesthesia Instructions: 1. Do not drive today. 2. Resume driving when surgeon permits. 3. Do not make important decisions or sign legal documents today. 4. Call surgeon for: Temperature evaluation greater than 101 degrees Uncontrollable pain Excessive Bleeding Persistent Nausea and vomiting Medication intolerance (nausea, vomiting, or rash) 5. For nausea and vomiting use only clear liquids such as: tea, soda, bouillon until nausea subsides, then gradually increase diet as tolerated. 6. If you have any concerns or questions, call your surgeon's office at [phone] . If the physician is unavailable and it is an emergency, call 911 or go to the nearest emergency room. Preprinted instructions given: None (Form No.) Special Care / Other: Keep the dressing on for 4 days. She can take a shower on 08/01/2023, no driving while taking pain medicine. Activity : Rest today. Return to School or Work: May return to work/school on 07/31/2023 Diet: Resume previous diet Follow-up Visit with: Dr. Callahan [phone] When: in 2 weeks Discharged To: Home documented in this encounter H&P Notes * Paual Callahan MD - 07/28/2023 11:06 AM EST HISTORY AND PHYSICAL EXAMINATION - General Surgery Name: Edilma Kennedy Date: 07/28/2023 Time: 11:03 AM Subjective PRESENTING PROBLEM: a cyst on scalp HISTORY OF PRESENT ILLNESS: Edilma Kennedy is a 87 year-old female who is referral for consult a cyst on scalp by Yoselyn Mattson PA-C. Pt presents with 5 years history a cyst on scalp, the cyst is getting bigger, causedpain. The cyst size about 2x2cm, Pt denies fever,no chills, no drainage. 07/28/2023 11:03 AM, I reviewed pt's H/P with pt, no change. PROBLEM LIST: Problem List Patient Active Problem List Diagnosis Code HTN, goal below 140/90 I10 Chronic ITP (idiopathic thrombocytopenia) (HCC) D69.3 Constipation K59.00 Protein-calorie malnutrition (HCC) E46 Stage 3a chronic kidney disease (HCC) N18.31 Hx of nonmelanoma skin cancer Z85.828 Chronic obstructive pulmonary disease (HCC) J44.9 PAST MEDICAL HISTORY: Past Medical History No past medical history on file. PAST SURGICAL HISTORY: Past Surgical History No past surgical history on file. FAMILY HISTORY: No family history on file. SOCIAL HISTORY: Social History Social History Tobacco Use Smoking status: Never Passive exposure: Never Smokeless tobacco: Never Vaping Use Vaping Use: Never used Substance Use Topics Alcohol use: Never Drug use: Never CURRENT MEDICATIONS: Note that discontinued continue to display for 24 hours. Ordered medications to be given in the future also display. Current Medications Current Outpatient Medications Medication Sig Dispense Refill [...] by mouth in morning. 60 Tablet 5 Losartan Potassium 50 MG Oral Tablet (Cozaar) Take 1 Tablet by mouth in the morning. 90 Tablet 3 Spiriva Respimat 2.5 MCG/ACT Inhalation Aerosol Solution (Tiotropium [place] Monohydrate) Inhale 2 Puffs by mouth in the morning. 4 g 3 Albuterol Sulfate HFA 108 (90 Base) MCG/ACT Inhalation Aerosol Solution Inhale 2 Puffs by mouth every 4 hours as needed for Cough, Shortness of Breath or Wheezing. 20.1 g 12 Current Facility-Administered Medications Medication Dose Route Frequency Provider Last Rate Last Admin Albuterol Sulfate (Proventil) (2.5 MG/3ML) 0.083% inhalation solution 2.5 mg 2.5 mg Nebulizer Once PRN Toshia Garza DO 2.5 mg at 04/20/23 1131 ALLERGIES: Allergies Lisinopril ROS: Review of Systems Constitutional: Negative. HENT: Negative. Eyes: Negative. Respiratory: Chronic obstructive pulmonary disease Cardiovascular: HTN Gastrointestinal: Constipation Endocrine: Negative. Genitourinary: Stage 3a chronic kidney disease (HCC) Noted 11/07/2022 [N18.31] Musculoskeletal: Negative. Skin: Hx of nonmelanoma skin cancer Neurological: Negative. Hematological: Negative. Chronic ITP Psychiatric/Behavioral: Negative. Objective []Expand by Default PHYSICAL EXAMINATION: Most Recent Vital Signs: BP 123/39 | Temp 36.5, HR 61, RR 18, O2 sat 95 % | Wt 50.5 kg (111 lb 6.4 oz) | BMI 21.76 kg/m | BSA 1.46 m Physical Exam Constitutional: Appearance: Normal appearance. HENT: Head: Normocephalic and atraumatic. Eyes: Pupils: Pupils are equal, round, and reactive to light. Cardiovascular: Rate and Rhythm: Normal rate and regular rhythm. Pulmonary: Effort: Pulmonary effort is normal. Breath sounds: Normal breath sounds. Abdominal: General: Abdomen is flat. Bowel sounds are normal. Palpations: Abdomen is soft. Musculoskeletal: Cervical back: Normal range of motion and neck supple. Skin: General: Skin is warm and dry. Comments: A sebaceous cyst on scalp, size about 2x2cm, mild tenderness, no redness. Neurological: General: No focal deficit present. Mental Status: She is alert and oriented to person, place, and time. Psychiatric: Mood and Affect: Mood normal. Behavior: Behavior normal. LABS: Labs reviewed as indicated below: I reviewed CBC, CMP, 05/11/2023. IMAGING: N/A IMPRESSION and PLAN: IMP: a sebaceous cyst on scalp. Plan, pt is a 87 year-old female who presents with 5 years history a cyst on scalp, caused pain, and getting bigger. Plan; I recommend to do resection a cyst on scalp under local anesthesia. D/W benefits, risks and alternatives of the surgery, the risks - infection, bleeding, recurrence. Scar pain, pt understood, she signed informed consent, I answered all questions. PRIMARY CARE PHYSICIAN: Toshia Garza DO * Paula Callahan MD - 07/28/2023 11:03 AM EST HISTORY & PHYSICAL INTERVAL NOTE [facility] [address] [address] History and Physical Update: Name: Edilma Kennedy Location: [facility]/OR Date: 07/28/2023 Time: 11:04 AM DATE OF HISTORY AND PHYSICAL: 07/28/2023 BP: 123 mmHg/39 mmHg (07/28/23 1000) Pulse: 61 (07/28/23 1000) Temp: 36.5 C (07/28/23 1000) Resp: 18 (07/28/23 1000) SpO2: 95 % (07/28/23 1000) Does patient take a beta elva? No Did patient stop anticoagulants? None Heart Exam: regular rate and rhythm Lung Exam: clear to auscultation bilaterally Other Pertinent Physical Exam: I have reviewed the H&P previously performed and examined the patient today. There are no new findings noted. documented in this encounter Nursing Notes * Toshia Rea RN - 07/28/2023 12:12 PM EST Patient is alert, denies pain, and is tolerating po fluids prior to discharge. Patient's scalp incision sealed by sutures is clean, dry, and open to air. Patient and patient's son, Christian have received and demonstrate understanding of discharge instructions. Patient is transported via w/c to private auto accompanied by nursing staff. * Toshia Rea RN - 07/28/2023 11:47 AM EST Property Technician received patient into PACU II at this time s/p scalp cyst resection. Patient is awake, a&ox4, VSS- see flowsheet for details. Patient denies pain or nausea at this time. Patient has incision to scalp which clean, dry, and open to air. * Lynn Saba RN - 07/28/2023 10:03 AM EST Surgical consent verified with patient. Patient agrees with listed procedure and verified signature. documented in this encounter OR Notes * OR Surgeon - Paula Callahan MD - 07/28/2023 12:12 PM EST [facility] [address] [address] OPERATIVE REPORT Name: Edilma Kennedy Date: 07/28/2023 Time: 1:40 PM Location: OR [facility] Service: General Surgery Date of Operation: 07/28/2023 Pre-op Diagnosis: a cyst on scalp Post-op Diagnosis: a cyst on scalp Operation: Resection a cyst on scalp Surgeon: Paula Callahan MD Assistants: microbiology technician Anesthesia: 12 ml of Local anesthesia: 0.25% bupivacaine, 1% lidocaine infiltrated in the incision Drains: none Estimated Blood Loss: 3 ml. IV Fluids: N/A Urine Output: N/A Specimens/Disposition: a cyst Apparent Intraoperative Complications: NONE Patient Condition: good Disposition: Post Anesthesia Care Unit Attestation: I performed the procedure The indication of the procedure: Patient is a 87 years old female who presented a cyst on the scalp. I recommend to do resection a cyst on the scalp. I did talk to patient about the benefits and risks and alternatives of the procedure. I indicated the risks may include but are not limited to such as bleeding ,infection ,recurrence , scar, and pain. Patient understood he signed informed consent .Ianswered all questions. The detail of the procedure: After we identified patient verified procedure we brought patient to the OR put the patient on the supine position on the OR table .patient received SCD on bilateral legsto prevent DVT. The cyst located scalp area was prepped per dropped routine sterile fashion. after time-out the I injections local anesthesia by using 1% lidocaine mixed with 0.5% Marcaine around thecyst on the scalp. now I make a fishmouth incision by using a 15 blade the incision size about the 3 X 2 cm. Then we found the patient had the subcutaneous layer cyst , the cyst size about 3 x 2 cm. I completely remove the cyst deep to subcutaneous layer by using Bovie. The hemostat was obtained. cl osed skin by using OR 3-0 nylon interruptedly. then we put a dressing on. the patient tolerated procedure well. all instrument needle sponge count correct x2 at end the case. patient transferred to recovery room in stable condition. after procedure I did talk to patient about the OR findings procedure we did also I gave patient postop care instruction. patient understood. * Operative Report Brief - Paula Callahan MD - 07/28/2023 11:53 AM EST [facility] [place] [address] [place] [phone] OPERATIVE REPORT - BRIEF Name: Edilma Kennedy Date: 07/28/2023 Time: 11:53 AM Location: [facility] Service: General Surgery Date of Operation: 07/28/2023 Pre-op Diagnosis: a cyst on scalp Post-op Diagnosis: a cyst on scalp Operation: Resection a cyst on scalp Surgeon: Paula Callahan MD Assistants: microbiology technician Anesthesia: 12 ml of Local anesthesia: 0.25% bupivacaine, 1% lidocaine infiltrated in the incision Drains: none Estimated Blood Loss: 3 ml. IV Fluids: N/A Urine Output: N/A Specimens/Disposition: a cyst Apparent Intraoperative Complications: NONE Patient Condition: good Disposition: Post Anesthesia Care Unit Attestation: I performed the procedure documented in this encounter Plan of Treatment Upcoming Encounters Date Type Department Care Team (Late st Contact Info) Description 08/07/2023 11:15 AM EST Office Visit General Surgery, [facility] [address] [place] [address] Paula Callahan MD [address] [place] [address] 08/14/2023 11:00 AM EST Office Visit Family Practice [facility] [address] [place] [address] Toshia Garza DO [address] [place] [address] 08/28/2023 9:00 AM EST Pharmacy Pharmacy Hematology Oncology [facility] [address] [place] [address] [facility] Hem/Onc [address] [place] [address] 12/06/2023 11:20 AM EDT Office Visit Dermatology [address] [place] [address] Toshia Mattson PA-C [address] [place] [address] [place] [address] 12/21/2023 2:00 PM EDT Office Visit Cardiology, [facility] [address] [place] [address] Huong Oseguera CRNP [address] [place] [address] 01/03/2024 11:15 AM EDT Office Visit Hematology/Oncology [facility] [address] [facility] [address] Zeeshan Choi MD [address] [place] [address] Pending Results Name Type Priority Associated Diagnoses Date /Time SURGICAL PATHOLOGY Pathology Routine Sebaceous cyst 07/28/2023 11:34 AM EST Scheduled Orders Name Type Priority Associated Diagnoses Orde r Schedule SURGICAL PATHOLOGY Pathology Routine Sebaceous cyst Release Upon Ordering for 1 Occurrences starting 07/28/2023, 1 completed Health Maintenance Due Date Last Done Comments COVID-19 Vaccine (#1) 04/01/1936 Pneumococcal Vaccine: 65+ Years (1 - PCV) 09/29/1941 Depression Screening 1947 DTaP,Tdap,and Td Vaccines (1 - Tdap) 09/29/1954 Zoster Vaccines (1 of 2) 09/29/1985 Influenza Vaccine (FLU shot) (#1) 2023 CKD PHOS USE SMARTSET 36676 11/11/2023 11/10/2022 Albumin/Creatinine Ratio 05/11/2024 05/11/2023, 07/24 O2 ASSESSMENT COMPLETED IN PAST YEAR FOR COPD 07/04/2024 07/28/2023 CKD HGB USE SMARTSET 61742 07/26/202407/26, 07/26/2023, 06/20/2023, Additional history exists DXA [...] as of this encounter Visit Diagnoses Diagnosis Sebaceous cyst documented in this encounter Administered Medications documented in this encounter Active and Recently Administered Medications Times are shown in EST. Scheduled Medication Order 07/26/2023 07/27/2023 07/28/2023 meperidine (Demerol) 25 MG/ML inj 12.5 mg 12.5 mg, Intravenous, ONCE, On Mon07/28/23 at 1230, For 1 dose, May repeat in 5 minutes, Post-op oxyCODONE (Oxy IR) tab 5 mg 5 mg, Oral, ONCE, On Mon07/28/23 at 1230, For 1 dose, Post-op Pneumococcal 20-Alyx Conj Vacc (Prevnar 20) inj 0.5 mL 0.5 mL, Intramuscular, ONCE, On Mon07/28/23 at 1230, For 1 dose, Add Lot# and Hospital Clinic Assistant in Immunization Info section of MAR, Post-op PRN Medication Order 07/26/2023 07/27/2023 07/28/2023 bacitracin zinc ointment (CANCELED) ONCE PRN INTRA PROCEDURE, Starting on Mon07/28/23 at 1139, Until Mon07/28/23 at 1146, Intra-Op 1139 (Given - Provid er: Paula Callahan MD - Comment: scalp) bupivacaine 10 mL, Lidocaine 1 % (PF) 10 mL inj (CANCELED) ONCE PRN INTRA PROCEDURE, Starting on Mon07/28/23 at 1139, Until Mon07/28/23 at 1146, Intra-Op 1139 (Given - Provid er: Paula Callahan MD - Comment: scalp) documented in this encounter Care Teams Winding Department Supervisor Relationship Specialty Start Date End Date Toshia Garza DO [address] [facility] [place] [address] PCP - General Family Medicine 12/07/22 documented as of this encounter"
--- OUTSIDE RECORDS SUMMARY | 2023-12-06 23:38 | External Medical Summary | Summary of Care ---
Author Name Unknown Organization [facility] Address [address] [place] [address] Phone [phone] Care Team Providers Care Letter Carrier Name Role Phone Toshia Reynaga DO Primary Care Provider [phone] Encounter Details Date Type Department Care Team (Late st Contact Info) Description 06/12/2023 Result Scan Unspecified Department <No scans attached> Allergies Active Allergy Reactions Criticality Noted Date Comments Lisinopril Other (Please comment) 05/06/2022 Burning in throat documented as of this encounter (statuses as of 07/07/2023) Medications Medication Sig Dispensed Refills Start Date [...] Respimat 2.5 MCG/ACT Inhalation Aerosol Solution (Tiotropium [place] Monohydrate)Indicati ons:COPD, very severe (HCC) Inhale 2 Puffs by mouth in the morning. 4 g 3 05/16/2023 Active Albuterol Sulfate HFA 108 (90 Base) MCG/ACT Inhalation Aerosol SolutionIndications: COPD, very severe (HCC) Inhale 2 Puffs by mouth every 4 hours as needed for Cough, Shortness of Breath or Wheezing. 20.1 g 12 05/16/2023 Active Hospital, Clinic, or Other Facility Administered Medication Ordered Dose Route Frequency Start Date End Date Status Albuterol Sulfate (Proventil) (2.5 MG/3ML) 0.083% inhalation solution 2.5 mgIndications:COPD, severity to be determined (HCC) 2.5 mg NEBULIZER ONCE PRN 02/17/2023 02/17/2024 Active documented as of this encounter (statuses as of 07/07/2023) Active Problems Problem Noted Date Diagnosed Date [...] as of this encounter (statuses as of 07/07/2023) Resolved Problems Problem Noted Date Diagnosed Date Resolved Date Chronic obstructive pulmonary disease 05/11/2023 06/08/2023 Overview: Per COPD GOLD Classification documented as of this encounter (statuses as of 07/07/2023) Social History Tobacco Use Types Packs/Day Years [...] Department Care Team (Latest Contact Info) Description 07/18/2023 9:00 AM EST Pharmacy Pharmacy Hematology Oncology [facility] [address] [place] [address] Gmc, [facility] Clinic Hem/Onc [address] [place] [address] 07/28/2023 7:30 AM EST Hospital Encounter OR O[facility], Operating Room [facility] [address] [phone] Paula Callahan MD [address] [place] [address] 07/28/2023 7:30 AM EST - 07/28/2023 8:16 AM EST Surgery OR [facility], Operating Room [facility] [address] [place] [phone] Paula Callahan MD [address] [place] [address] EXCISION FACE/SCALP SUBQ TUMOR, 2 CM OR MORE 08/07/2023 11:15 AM EST Office Visit General Surgery, [facility] [address] [address] Paula Callahan MD [address] [place] [address] 08/14/2023 11:00 AM EST Office Visit Family Practice [facility] [address] [place] [address] [address] Toshia Reynaga DO [address] [place] [address] 12/06/2023 11:20 AM EDT Office Visit Dermatology [address] [place] [address] Toshia Mattson PA-C [address] [place] [address] [place] [address] 12/21/2023 2:00 PM EDT Office Visit Cardiology, [facility] [address] [place] [address] Huong Oseguera CRNP [address] [place] [address] 01/03/2024 11:15 AM EDT Office Visit Hematology/Oncology [facility] [address] [place] [address] Zeeshan Choi MD [address] [place] [address] Scheduled Procedures Name Priority Associated Diagnoses Date/Ti [...] shot) (#1) 2023 CKD PHOS USE SMARTSET 67369 11/11/2023 11/10/2022 Albumin/Creatinine Ratio 05/11/2024 05/11/2023, 07/24 CKD HGB USE SMARTSET 31759 06/20/202406/20, 06/20/2023, 05/11/2023, Additional history exists O2 [...] Procedure Name Priority Date/Time Associated Diagnosis Comments OUTSIDE LAB RESULTS 06/12/2023 RADIOLOGY SCANNED RESULT 06/12/2023 RADIOLOGY SCANNED RESULT 06/12/2023 RADIOLOGY SCANNED RESULT 06/12/2023 RADIOLOGY SCANNED RESULT 06/12/2023 RADIOLOGY SCANNED RESULT 06/12/2023 RADIOLOGY SCANNED RESULT 06/12/2023 documented in this encounter Results * RADIOLOGY SCANNED RESULT (06/12/2023) 06/12/2023 No Physician Data Unknown [facility] * RADIOLOGY SCANNED RESULT (06/12/2023) 06/12/2023 No Physician Data Unknown [facility] * RADIOLOGY SCANNED RESULT (06/12/2023) 06/12/2023 No Physician Data Unknown [facility] * RADIOLOGY SCANNED RESULT (06/12/2023) 06/12/2023 No Physician Data Unknown [facility] * RADIOLOGY SCANNED RESULT (06/12/2023) 06/12/2023 No Physician Data Unknown [facility] * RADIOLOGY SCANNED RESULT (06/12/2023) 06/12/2023 No Physician Data Unknown [facility] RAD [facility] * OUTSIDE LAB RESULTS (06/12/2023) 06/12/2023 No Physician Data Unknown LABORATORY documented in this encounter Care Teams Letter Carrier Relationship Specialty Start Date End Date Toshia Reynaga DO [address] [place] [address] PCP - General Family Medicine 12/07/22 documented as of this encounter
--- OUTSIDE RECORDS SUMMARY | 2023-12-06 23:38 | External Medical Summary | Summary of Care ---
Author Name Unknown Organization [facility] Address [address] [place] [address] Phone [phone] Care Team Providers Care Wood Block Artist Name Role Phone Toshia Reynaga DO Primary Care Provider [phone] Reason for Visit * Reason Comments Medication Management Encounter Details Date Type Department Care Team (Late st Contact Info) Description 07/18/2023 9:00 AM [facility] Pharmacy Pharmacy Hematology Oncology [facility] [address] [place], [place] [id number] [facility] [place] Hem/Onc [address] [place], [place] [phone] Chronic ITP (idiopathic thrombocytopenia) (HCC)* Allergies Active [...] Respimat 2.5 MCG/ACT Inhalation Aerosol Solution (Tiotropium [place] Monohydrate)Indicati ons:COPD, very severe (HCC) Inhale 2 [...] EVERY MORNING 90 Tablet 1 07/18/2023 Active Hospital, Clinic, or Other Facility Administered [...] Notes * Lee Ann Yepez OSA - 07/18/2023 9:00 AM EST MEDICATION THERAPY MANAGEMENT AVATROMBOPAG TREATMENT PROGRESS NOTE Edilma Kennedy [phone] Patient Phone Numbers Son: Christian Communication: Left message and GrantAdlerG message sent Treatment: Medication: Avatrombopag (Doptelet) Indication/Staging/Diagnosis Code: ITP/D69.3 Dose: 40mg daily (DI 11/03/22) Administration: with food Start Date: November 2019 Primary Dog Control Officer/Oncologist: Dr. Gabriel Choi Monthly lab reminder sent to patient via MyG and via [facility] JACE Dawn Group Captain Pharmacy Hematology Oncology Oral Chemotherapy Clinic Medication Therapy Disease Management [facility] 07/18/23 9:38 AM Time Spent on Encounter: < 5 minutes Encounter Group: Hematology Encounter Interventions Item Category: Oral Chemotherapy Other: Avatrombopag Problem/Rationale: Effectiveness: Needs additional monitoring - Medication Requires monitoring Safety: Needs additional monitoring - Medication Requires monitoring Pharmacist Intervention(s): Lab work requested Magnitude of Intervention: Monitoring with no interventions (Level 0) documented in this encounter Plan of Treatment Upcoming Encounters Date Type Department Care Team (Latest Contact Info) Description 07/25/2023 9:00 AM EST Pharmacy Pharmacy Hematology Oncology [facility] [address] [place] [address] [facility] Hem/Onc [address] [place] [address] 07/28/2023 7:30 AM EST Hospital Encounter OR [facility], Operating Room [facility] [address] [place] [phone] Paula Callahan MD [address] [place] [address] 07/28/2023 7:30 AM EST - 07/28/2023 8:16 AM EST Surgery OR [facility], Operating Room [facility] [address] [place] [phone] Paula Callahan MD [address] [place] [address] EXCISION FACE/SCALP SUBQ TUMOR, 2 CM OR MORE 08/07/2023 11:15 AM EST Office Visit General Surgery, [facility] [address] [place] [address] Paula Callahan MD [address] [place] [address] 08/14/2023 11:00 AM EST Office Visit Family Practice [facility] [address] [place] [address] Toshia Reynaga DO [address] [place] [address] 12/06/2023 11:20 AM EDT Office Visit Dermatology [address] [place] [address] Toshia Mattson PA-C [address] [place] [address] [place] [address] 12/21/2023 2:00 PM EDT Office Visit Cardiology, [facility] [address] [place] [address] Huong Oseguera CRNP [address] [place] [address] 01/03/2024 11:15 AM EDT Office Visit Hematology/Oncology [facility] [place] [address] Zeeshan Choi MD [address] [place] [address] Scheduled Procedures Name Priority Associated Diagnoses Date/Ti [...] shot) (#1) 2023 CKD PHOS USE SMARTSET 84961 11/11/2023 11/10/2022 Albumin/Creatinine Ratio 05/11/2024 05/11/2023, 07/24 CKD HGB USE SMARTSET 23816 06/20/202406/20, 06/20/2023, 05/11/2023, Additional history exists O2 [...] cyst documented in this encounter Care Teams Wood Block Artist Relationship Specialty Start Date End Date Toshia Reynaga DO [address] [place] [address] PCP - General Family Medicine 12/07/22 documented as of this encounter
--- OUTSIDE RECORDS SUMMARY | 2023-12-06 23:38 | External Medical Summary | Summary of Care ---
Author Name Unknown Organization [facility] Address [address] [place] [address] Phone [phone] Care Team Providers Care Certified Professional Midwife Name Role Phone Cris Simons DO Primary Care Provider [phone] Reason for Visit * Reason Onset Date Comments Medication Refill 08/01/2023 Encounter Details Date Type Department Care Team (Late st Contact Info) Description 08/01/2023 Refill Family Practice [facility] [address] [place] [address] Cris Simons DO [address] [facility] [place] [phone] HTN, goal below 140/90 Allergies Active Allergy Reactions Criticality Noted Date Comments Lisinopril Other (Please comment) 05/06/2022 Burning in throat documented as of this encounter (statuses as of 08/02/2023) Medications Medication Sig Dispensed Refills Start Date [...] Respimat 2.5 MCG/ACT Inhalation Aerosol Solution (Tiotropium [place] Monohydrate)Indica tions:COPD, very severe (HCC) Inhale 2 [...] every 6 hours as needed. 0 Active oxyCODONE-Acetamin ophen 5-325 MG Oral Tablet (Percocet) Take 1 Tablet by mouth every 6 hours as needed for Pain, Breakthrough. 14 Tablet 0 07/28/2023 Active amLODIPine Besylate 10 MG Oral Tablet [...] in the morning. 90 Tablet 3 06/26/2023 4 Discontinue d(Refill) amLODIPine Besylate 10 MG Oral Tablet (Norvasc)Indicatio ns:HTN, goal below 140/90 Take 1 Tablet by mouth in the morning. 90 Tablet 3 06/26/2023 4 Discontinue d(Refill) Hospital, Clinic, or Other Facility Administered Medication Ordered Dose Route Frequency Start Date End Date Status Albuterol Sulfate (Proventil) (2.5 MG/3ML) 0.083% inhalation solution 2.5 mgIndications:COPD, severity to be determined (HCC) 2.5 mg NEBULIZER ONCE PRN 02/17/2023 02/17/2024 Active documented as of this encounter (statuses as of 08/02/2023) Active Problems Problem Noted Date Diagnosed Date [...] as of this encounter (statuses as of 08/02/2023) Resolved Problems Problem Noted Date Diagnosed Date Resolved Date Chronic obstructive pulmonary disease 05/11/2023 06/08/2023 Overview: Per COPD GOLD Classification documented as of this encounter (statuses as of 08/02/2023) Immunizations No known immunizationsdocumented as of this [...] encounter Miscellaneous Notes * Telephone Encounter - Shilpa Vo [facility] - 08/02/2023 10:01 AM EST Signed Prescriptions: Disp Refills amLODIPine Besylate 10 MG Oral Tablet (Nor*90 Tab*2 Sig: Take 1 Tablet by mouth in the morning.Authorizing Provider: CRIS SIMONS User: SHILPA VO Losartan Potassium 100 MG Oral Tablet (Coz*90 Tab*2 Sig: Take 1 Tablet by mouth in the morning. Authorizing Provider: CRIS SIMONS User: SHILPA VO * Telephone Encounter - Gifty Peres PHARM Tech - 08/01/2023 10:53 AM EST Please reroute Rx to E [facility] [address] [facility]. Pending Prescriptions: Disp Refills amLODIPine Besylate 10 MG Oral Tablet (No*90 Tab*2 Sig: Take 1 Tablet by mouth in the morning. Losartan Potassium 100 MG Oral Tablet (Co*90 Tab*2 Sig: Take 1 Tablet by mouth in the morning. Last Visit: 06/20/2023 (in office), Visit date not found (telemedicine) 08/14/2023 If no future appointments scheduled, and last appointment is greater than a year ago, please schedule patient for a follow-up appointment Last date the medication was ordered: 06/26/2023 Patient Phone Numbers Labs: Lab Results Component Value Date/Time CREAT 1.0 06/20/2023 10:20 AM POTASSIUM 4.0 06/20/2023 10:20 AM TSH 2.86 05/11/2023 11:09 AM LDLCALC 90 05/11/2023 11:09 AM ALT 8 (L) 05/11/2023 11:09 AM documented in this encounter Plan of Treatment Upcoming Encounters Date Type Department Care Team (Late st Contact Info) Description 08/07/2023 11:15 AM EST Office Visit General Surgery, [facility] [address] [address] Paula Callahan MD [address] [place] [address] 08/14/2023 11:00 AM EST Office Visit Family Practice [facility] [address] [place] [address] [address] Cris Simons DO [address] [place] [address] 08/28/2023 9:00 AM EST Pharmacy Pharmacy Hematology Oncology [facility] [address] [place] [address] [facility] [place] Hem/Onc [address] [place] [address] 12/06/2023 11:20 AM EDT Office Visit Dermatology [address] [place] [address] Cris Mattson PA-C [address] [place] [address] [place] [address] 12/21/2023 2:00 PM EDT Office Visit Cardiology, [facility] [address] [place] [address] [address] Huong Oseguera CRNP [address] [place] [address] 01/03/2024 11:15 AM EDT Office Visit Hematology/Oncology [facility] [place] [address] [place] [address] Zeeshan Choi MD [address] [place] [address] Health Maintenance Due Date Last Done Comments COVID-19 Vaccine (#1) 04/01/1936 Pneumococcal Vaccine: 65+ Years (1 - PCV) 09/29/1941 Depression Screening 1947 DTaP,Tdap,and Td Vaccines (1 - Tdap) 09/29/1954 Zoster Vaccines (1 of 2) 09/29/1985 Influenza Vaccine (FLU shot) (#1) 2023 CKD PHOS USE SMARTSET 75034 11/11/2023 11/10/2022 Albumin/Creatinine Ratio 05/11/2024 05/11/2023, 07/24 CKD HGB USE SMARTSET 93620 07/26/202407/26, 07/26/2023, 06/20/2023, Additional history exists O2 [...] hypertension documented in this encounter Care Teams Certified Professional Midwife Relationship Specialty Start Date End Date Cris Simons DO [address] [place] [address] PCP - General Family Medicine 12/07/22 documented as of this encounter
--- OUTSIDE RECORDS SUMMARY | 2023-12-06 23:38 | External Medical Summary ---
Author Name Unknown Address Unknown Organization [facility] [address] [place] [address] Laboratory Report Ordering Provider Test Date Status RAMU VASQUES 07/26/2023 10:55:52 Final Observation Date Value Abnormality Reference (Units ) Status SYNC LEUKOCYTES IN BLOOD BY AUTOMATED COUNT 07/26/2023 10:55:52 8.50 4.00-10.80 (K/uL) Final Segs 07/26/2023 10:55:52 65.4 40.0-75.0 (%) Final Lymphs % 07/26/2023 10:55:52 20.1 18.0-42.0 (%) Final Monos 07/26/2023 10:55:52 11.3 Above high normal 1.0-11.0 (%) Final Eosinophils 07/26/2023 10:55:52 2.5 0.0-6.0 (%) Final Basos 07/26/2023 10:55:52 0.7 0.0-2.0 (%) Final Absolute Segs 07/26/2023 10:55:52 5.56 1.80-7.70 (K/uL) Final Lymphs, absolute 07/26/2023 10:55:52 1.71 1.00-4.80 (K/ul) Final Monos, Abs 07/26/2023 10:55:52 0.96 0.00-1.10 (K/uL) Final Eos, Abs 07/26/2023 10:55:52 0.21 0.00-0.70 (K/uL) Final Basos, Abs 07/26/2023 10:55:52 0.06 0.00-0.20 (K/uL) Final Performing Location [facility] - [address] [place] [address]
--- OUTSIDE RECORDS SUMMARY | 2023-12-06 23:38 | External Medical Summary ---
Author Name Unknown Address Unknown Organization [facility] [address] - [address] [place] [address] Laboratory Report Ordering Provider Test Date Status RAMU VASQUES 07/26/2023 10:55:52 Final Observation Date Value Abnormality Reference (Units ) Status WBC, Total 07/26/2023 10:55:52 8.50 4.00-10.8 0 (K/uL) Final RBC 07/26/2023 10:55:52 2.83 3.85-5.15 (M/uL) Final Hemoglobin 07/26/2023 10:55:52 8.8 Below low normal 12 .0-15.3 (g/dL) Final HCT 07/26/2023 10:55:52 27.3 Below low normal 36. 0-45.2 (%) Final MCV 07/26/2023 10:55:52 96.5 81.5-97.5 (fL) Final MCH 07/26/2023 10:55:52 31.1 27.0-34.0 (pg) Final MCHC 07/26/2023 10:55:52 32.2 32.0-36.0 (g/dL) Final RDW 07/26/2023 10:55:52 14.8 11.5-15.5 (%) Final Platelets 07/26/2023 10:55:52 373 140-400 (K /uL) Final MPV 07/26/2023 10:55:52 11.4 6.6-11.1 ( fL) Final Performing Location [facility] [address] - [address] [place] [address]
--- OUTSIDE RECORDS SUMMARY | 2023-12-06 23:38 | External Medical Summary ---
Author Name Unknown Address Unknown Organization [facility] - [address] [place] [address] Laboratory Report Ordering Provider Test Date Status RAMU VASQUES 07/26/2023 10:55:52 Final Observation Date Value Abnormality Reference (Units ) Status Nucleated erythrocytes/100 leukocytes [Ratio] in Blood by Automated count 07/26/2023 10:55:52 Final Acanthocytes [Presence] in Blood by Light microscopy 07/26/2023 10:55:52 Moderate Abnormal None Seen Final Elliptocytes [Presence] in Blood by Light microscopy 07/26/2023 10:55:52 Moderate Abnormal None Seen Final Schistocytes 07/26/2023 10:55:52 Few Abnormal None Seen Final Performing Location [facility] [address] - [address] [place] [address]
--- OUTSIDE RECORDS SUMMARY | 2023-12-06 23:38 | External Medical Summary | Summary of Care ---
Author Name Unknown Organization [facility] Address [address] [place] [address] Phone [phone] Care Team Providers Care Patient Safety Officer Name Role Phone Toshia Reynaga DO Primary Care Provider [phone] Reason for Visit * Reason Onset Date Comments Blood Pressure Check Blood Pressure Check 07/04/2023 Encounter Details Date Type Department Care Team (Late st Contact Info) Description 07/04/2023 10:50 AM EST Nurse Only Ancillary [facility] [address] [place] [address] [facility], Nurse [facility] [address] [place] [address] Blood Pressure Check; Blood Pressure Check Allergies Active Allergy Reactions Criticality Noted Date [...] Respimat 2.5 MCG/ACT Inhalation Aerosol Solution (Tiotropium [place] Monohydrate)Indicati ons:COPD, very severe (HCC) Inhale 2 [...] Sign Reading Time Taken Comments Blood Pressure 120/44 07/04/2023 11:09 AM EST Pulse - - Temperature - - Respiratory Rate - - Oxygen Saturation - - Inhaled Oxygen Concentration - - Weight - - Height - - Body Mass Index - - documented in this encounter Progress Notes * Nichole Kim LPN - 07/04/2023 11:10 AM EST Edilma Kennedy presented for blood pressure check per provider orders. The blood pressure was obtained using the left arm in the sitting position using a adult small cuff. The results were charted in Vital Signs. BP Readings from Last 3 Encounters: 07/04/23 120/44 07/04/23 117/68 06/20/23 198/72 BP 120/44 Patient denies headache, pressure in head, dizziness, lightheadedness, chest discomfort, focal neurological symptoms, change in vision, nose bleeds. Did patient take medications today? Yes Patient was instructed to follow-up with their primary care provider. documented in this encounter Plan of Treatment Upcoming Encounters Date Type Department Care Team (Latest Contact Info) Description 07/18/2023 9:00 AM EST Pharmacy Pharmacy Hematology Oncology [facility] [address] [place] [address] [facility]mc, [facility] Hem/Onc [address] [place] [address] 07/28/2023 7:30 AM EST Hospital Encounter OR [facility], Operating Room [facility] [address] [place] [phone] Paula Callahan MD [address] [place] [address] 07/28/2023 7:30 AM EST - 07/28/2023 8:16 AM EST Surgery OR [facility], Operating Room [facility] [address] [place] [phone] Paula Callahan MD [address] [place] [address] EXCISION FACE/SCALP SUBQ TUMOR, 2 CM OR MORE 08/07/2023 11:15 AM EST Office Visit General Surgery, [facility] [address] [place] [address] Paula Callahan MD [address] [place] [address] 08/14/2023 11:00 AM EST Office Visit Family Practice [facility] [address] [place] [address] Toshia Reynaga DO [address] [place] [address] 12/06/2023 11:20 AM EDT Office Visit Dermatology [address] [place] [address] Toshia Mattson PA-C [address] [place] [address] [place] [address] 12/21/2023 2:00 PM EDT Office Visit Cardiology, [facility] [address] [place] [address] Huong Oseguera CRNP [address] [place] [address] 01/03/2024 11:15 AM EDT Office Visit Hematology/Oncology [facility] [address] [facility] [place] [address] Zeeshan Choi MD [address] [place] [address] Scheduled Orders Name Type Priority Associated Diagnoses Orde r Schedule BLOOD PRESSURE Procedures Routine HTN, goal below 130/80 Ordered: 07/04/2023 Scheduled Procedures Name Priority Associated Diagnoses Date/Ti [...] 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
--- OUTSIDE RECORDS SUMMARY | 2023-12-06 23:38 | External Medical Summary | Summary of Care ---
Author Name Unknown Organization [facility] Address [address] [place] [address] Phone [phone] Care Team Providers Care Records Management Engineer Name Role Phone Toshia Reynaga DO Primary Care Provider [phone] Reason for Visit * Reason Comments Medication Management Encounter Details Date Type Department Care Team (Late st Contact Info) Description 07/25/2023 9:00 AM [facility] Pharmacy Pharmacy Hematology Oncology [facility] [address], [place] [id number] [facility] Hem/Onc [address], [place] [id number] Chronic ITP (idiopathic thrombocytopenia) (HCC)* Allergies Active Allergy Reactions Criticality Noted Date Comments Lisinopril Other (Please comment) 05/06/2022 Burning in throat documented as of this encounter (statuses as of 07/25/2023) Medications Medication Sig Dispensed Refills Start Date [...] Respimat 2.5 MCG/ACT Inhalation Aerosol Solution (Tiotropium [place] Monohydrate)Indicati ons:COPD, very severe (HCC) Inhale 2 [...] as of this encounter (statuses as of 07/25/2023) Active Problems Problem Noted Date Diagnosed Date [...] as of this encounter (statuses as of 07/25/2023) Resolved Problems Problem Noted Date Diagnosed Date Resolved Date Chronic obstructive pulmonary disease 05/11/2023 06/08/2023 Overview: Per COPD GOLD Classification documented as of this encounter (statuses as of 07/25/2023) Social History Tobacco Use Types Packs/Day Years [...] Notes * Lee Ann Yepez OSA - 07/25/2023 9:00 AM EST MEDICATION THERAPY MANAGEMENT AVATROMBOPAG TREATMENT PROGRESS NOTE Edilma Kennedy [phone] Patient Phone Numbers Son: Christian Communication: Spoke to: Patient Treatment: Medication: Avatrombopag (Doptelet) Indication/Staging/Diagnosis Code: ITP/D69.3 Dose: 40mg daily (DI 11/03/22) Administration: with food Start Date: November 2019 Primary Senior Stock Plan Administrator/Oncologist: Dr. Gabriel Choi Patient will go to [facility] tomorrow via walk in for blood work. Patient stated that she is having surgery on her head on Monday. JACE Dawn Numerical Control Machine Operator Pharmacy Hematology Oncology Oral Chemotherapy Clinic Medication Therapy Disease Management [facility] 07/25/23 10:00 AM Time Spent on Encounter: < 5 [...] (Latest Contact Info) Description 07/27/2023 9:00 AM EST Pharmacy Pharmacy Hematology Oncology [facility] [address] [place] [address] [facility] Hem/Onc [address] [place] [address] 07/28/2023 11:40 AM EST Hospital Encounter OR [facility], Operating Room [facility] [address] [place] [phone] Paula Callahan MD [address] [place] [address] 07/28/2023 11:40 AM EST - 07/28/2023 12:36 PM EST Surgery OR [facility], Operating Room [facility] [address] [place] [phone] Paula Callahan MD [address] [place] [address] EXCISION FACE/SCALP SUBQ TUMOR, 2 CM OR MORE 08/07/2023 11:15 AM EST Office Visit General Surgery, [facility] [address] [place] [address] Paula Callahan MD [address] [place] [address] 08/14/2023 11:00 AM EST Office Visit Family Practice [facility] [address] [place] [address] Toshia Reynaga DO [address] [place] [address] 12/06/2023 11:20 AM EDT Office Visit Dermatology [address] [place] [address] Toshia Mattson PA-C [address] [place] [address] [place] [address] 12/21/2023 2:00 PM EDT Office Visit Cardiology, [facility] [address] [place] [address] Huong Oseguera CRNP [address] [place] [address] 01/03/2024 11:15 AM EDT Office Visit Hematology/Oncology [facility] [address] [facility] [place] [address] Zeeshan Choi MD [address] [place] [address] Scheduled Procedures Name Priority Associated Diagnoses Date/Ti me EXCISION FACE/SCALP SUBQ MICHELLE OR, 2 CM OR MORE Sebaceous cyst 07/28/2023 11:40 AM EST Health Maintenance Due Date Last Done Comments COVID-19 Vaccine (#1) 04/01/1936 Pneumococcal Vaccine: 65+ Years (1 - PCV) 09/29/1941 Depression Screening 1947 Alpha-1 Antitrypsin 09/29/1953 DTaP,Tdap,and Td Vaccines (1 - Tdap) 09/29/1954 Zoster Vaccines (1 of 2) 09/29/1985 Influenza Vaccine (FLU shot) (#1) 2023 CKD PHOS USE SMARTSET 21374 11/11/2023 11/10/2022 Albumin/Creatinine Ratio 05/11/2024 05/11/2023, 07/24 CKD HGB USE SMARTSET 00572 06/20/202406/20, 06/20/2023, 05/11/2023, Additional history exists O2 [...] cyst documented in this encounter Care Teams Records Management Engineer Relationship Specialty Start Date End Date Toshia Reynaga DO [address] [place] [address] PCP - General Family Medicine 12/07/22 documented as of this encounter
--- OUTSIDE RECORDS SUMMARY | 2023-12-06 23:39 | External Medical Summary | Summary of Care ---
Author Name Unknown Organization [facility] Address [address] [place] [address] Phone [phone] Care Team Providers Care Freelance Makeup Artist Name Role Phone Toshia Garza DO Primary Care Provider [phone] Reason for Visit * Reason Comments Emergency Department Follow-Up Pt here f or ER f/u for facial contusion from accidental fall few weeks ago. Encounter Details Date Type Department Care Team (Late st Contact Info) Description 06/20/2023 2:00 PM EST Office Visit Family Practice [facility] [address] [facility] [place] [address] Toshia Garza DO [address] [place] [address] HTN, goal below 140/90*; Personal history of fall; Contusion of face, initial encounter; Stage 3a chronic kidney disease (HCC) Allergies Active Allergy Reactions Criticality Noted Date Comments Lisinopril Other (Please comment) 05/06/2022 Burning in throat documented as of this encounter (statuses as of 06/20/2023) Medications Medication Sig Dispensed Refills Start Date [...] or juice. 507 g 3 04/25/2022 Active hydroCHLOROthiazid e 12.5 MG Oral Tablet [...] Respimat 2.5 MCG/ACT Inhalation Aerosol Solution (Tiotropium [place] Monohydrate)Indica tions:COPD, very severe (HCC) Inhale 2 Puffs by mouth in the morning. 4 g 3 05/16/2023 Active Albuterol Sulfate HFA 108 (90 Base) MCG/ACT Inhalation Aerosol SolutionIndication s:COPD, very severe (HCC) Inhale 2 Puffs by mouth every 4 hours as needed for Cough, Shortness of Breath or Wheezing. 20.1 g 12 05/16/2023 Active amLODIPine Besylate 10 MG Oral Tablet (Norvasc)Indicatio ns:HTN, goal below 140/90 Take 1 Tablet by mouth in the morning. 30 Tablet 5 06/20/2023 Active Losartan Potassium 100 MG Oral Tablet (Cozaar)Indication s:HTN, goal below 140/90 Take 1 Tablet by mouth in the morning. 30 Tablet 5 06/20/2023 Active Losartan Potassium 50 MG Oral Tablet (Cozaar) Take 2 Tablets by mouth in the morning. 0 06/12/2023 3 Discontinued Hospital, Clinic, or Other Facility Administered Medication Ordered Dose Route Frequency Start Date End Date Status Albuterol Sulfate (Proventil) (2.5 MG/3ML) 0.083% inhalation solution 2.5 mgIndications:COPD, severity to be determined (HCC) 2.5 mg NEBULIZER ONCE PRN 02/17/2023 02/17/2024 Active documented as of this encounter (statuses as of 06/20/2023) Active Problems Problem Noted Date Diagnosed Date [...] as of this encounter (statuses as of 06/20/2023) Resolved Problems Problem Noted Date Diagnosed Date Resolved Date Chronic obstructive pulmonary disease 05/11/2023 06/08/2023 Overview: Per COPD GOLD Classification documented as of this encounter (statuses as of 06/20/2023) Social History Tobacco Use Types Packs/Day Years [...] Sign Reading Time Taken Comments Blood Pressure 198/72 06/20/2023 10:29 AM EST Pulse 61 06/20/2023 10:29 AM EST Temperature 35 C (95 F) 06/20/2023 10:29 AM EST Respiratory Rate 16 06/20/2023 10:29 AM EST Oxygen Saturation - - Inhaled Oxygen Concentration - - Weight 53.1 kg (117 lb) 06/20/2023 10:29 AM EST Height 152.4 cm (5') 06/20/2023 10:29 AM EST Body Mass Index 22.85 06/20/2023 10:29 AM EST documented in this encounter Progress Notes * Toshia Garza, DO - 06/20/2023 10:42 AM EST Subjective: Edilma Kennedy is a 87 year old female. Chief Complaint Patient presents with Emergency Department Follow-Up Pt here for ER f/u for facial contusion from accidental fall few weeks ago. There are no exam notes on file for this visit. HPI: This is a 87 year old female with PMHx as below presents with ER follow up and BP check Pt missed a step and fell on face Broken tip of nose - monitor for now BP remains elevated but home readings SBP 150s Will schedule nurse BP check 07/04 and keep follow up with me 07/2023 Start amlodipine for BP Overall pt feeling well Health Maintenance Due Topic Date Due COVID-19 Vaccine (1) Never done Pneumococcal Vaccine: 65+ Years (1 - PCV) Never done Depression Screening Never done Alpha-1 Antitrypsin Never done DTaP,Tdap,and Td Vaccines (1 - Tdap) Never done Zoster Vaccines (1 of 2) Never done Influenza Vaccine (FLU shot) (1) Never done *NEPHROLOGY REFERRAL DUE TO RESISTANT HTN Never done Patient Active Problem List Diagnosis Code HTN, goal below 140/90 I10 Chronic ITP (idiopathic thrombocytopenia) ([facility]) D69.3 Constipation K59.00 Protein-calorie malnutrition ([facility]) E46 Stage 3a chronic kidney disease ([facility]) N18.31 Hx of nonmelanoma skin cancer Z85.828 COPD, group B, by GOLD 2017 classification ([facility]) J44.9 Current Outpatient Medications Medication Sig [...] Respimat 2.5 MCG/ACT Inhalation Aerosol Solution (Tiotropium [place] Monohydrate) Inhale 2 Puffs by mouth in the morning. 4 g 3 Albuterol Sulfate HFA 108 (90 Base) MCG/ACT Inhalation Aerosol Solution Inhale 2 Puffs by mouth every 4 hours as needed for Cough, Shortness of Breath or Wheezing. 20.1 g 12 Losartan Potassium 50 MG Oral Tablet (Cozaar) Take 2 Tablets by mouth in the morning. Current Facility-Administered Medications Medication Dose Route Frequency Provider Last Rate Last Admin Albuterol Sulfate (Proventil) (2.5 MG/3ML) 0.083% inhalation solution 2.5 mg 2.5 mg Nebulizer Once PRN Toshia Garza DO 2.5 mg at 04/20/23 1131 No past medical history on file. No past surgical history on file. Review of patient's allergies [...] Not on file Tobacco Use Smoking status: Never Passive exposure: [...] negative. Wt Readings from Last 3 Encounters: 06/20/23 53.1 kg (117 lb) 06/16/23 52.7 kg (116 lb 4 oz) 06/12/23 52.6 kg (116 lb) Results for orders placed or performed in visit on 06/20/23 BASIC METABOLIC PANEL Result Value Ref Range BUN 26 (H) 6 - 20 mg/dL Creatinine 1.0 0.5 - 1.0 mg/dL Estimated Glomerular Filtration Rate 56 (L) >=60 mL/min Sodium 142 135 - 146 mmol/L Potassium 4.0 3.5 - 5.1 mmol/L Chloride 105 98 - 107 mmol/L CO2 30 22 - 32 mmol/L Anion Gap 7 7 - 15 mmol/L Glucose 97 70 - 120 mg/dL Calcium 9.0 8.4 - 10.2 mg/dL OBJECTIVE: Physical Exam: BP 198/72 | Pulse 61 | Temp (!) 35 C (95 F) (Tympanic) | Resp 16 | Ht 1.524 m (5') | Wt 53.1 kg(117 lb) | BMI 22.85 kg/m | BSA 1.5 m General: alert, healthy, and no distress Heart: regular rate & rhythm Lungs: lungs clear to auscultation Neuro Exam: alert & oriented x 3 with fluent speech, no focal motor/sensory deficits, gait normal HTN, goal below 140/90 (Primary) - amLODIPine Besylate 10 MG Oral Tablet (Norvasc); Take 1 Tablet by mouth in the morning. - Losartan Potassium 100 MG Oral Tablet (Cozaar); Take 1 Tablet by mouth in the morning. Personal history of fall Contusion of face, initial encounter Stage 3a chronic kidney disease (HCC) Follow Up: Return if symptoms worsen or fail to improve. Toshia Garza DO documented in this encounter Plan of Treatment Upcoming Encounters Date Type Department Care Team (Latest Contact Info) Description 07/04/2023 9:15 AM EST Office Visit [facility]ology[facility] [address] [facility] [place] [address] Zeeshan Choi MD [address] [facility] [place] [address] 07/04/2023 10:50 AM EST Nurse Only Ancillary [facility] [address] Nurse Christiano Pace [facility] [address] 07/28/2023 7:30 AM EST Hospital Encounter OR [facility], Operating Room [facility] [address] [place] [phone] Paula Callahan MD [address] [place] [address] 07/28/2023 7:30 AM EST - 07/28/2023 8:16 AM EST Surgery OR [facility], Operating Room [facility] [address] [place] [phone] Paula Callahan MD [address] [place] [address] EXCISION FACE/SCALP SUBQ TUMOR, 2 CM OR MORE 08/07/2023 11:15 AM EST Office Visit General Surgery, [facility] [address] [place] [address] Paula Callahan MD [address] [place] [address] 08/14/2023 11:00 AM EST Office Visit Family Practice [facility] [address] [place] [address] Toshia Garza DO [address] [place] [address] 12/06/2023 11:20 AM EDT Office Visit Dermatology [address] [place] [address] Toshia Mattson PA-C [address] [place] [address] [place] [address] 12/21/2023 2:00 PM EDT Office Visit Cardiology, [facility] [address] [place] [address] Huong Oseguera CRNP [address] [place] [address] Scheduled Procedures Name Priority Associated Diagnoses Date/Ti [...] RESISTANT HTN 04/19/2023 CKD PHOS USE SMARTSET 73611 11/11/2023 11/10/2022 Albumin/Creatinine Ratio 05/11/2024 05/11/2023, 07/24 O2 ASSESSMENT COMPLETED IN PAST YEAR FOR COPD 05/16/2024 05/16/2023 CKD HGB USE SMARTSET 53015 06/20/202406/20, 06/20/2023, 05/11/2023, Additional history exists DXA [...] goal below 140/90- Primary Unspecified essential hypertension Personal history of fall Contusion of face, initial encounter Stage 3a chronic kidney disease (HCC) Sebaceous cyst documented in this encounter Care Teams Freelance Makeup Artist Relationship Specialty Start Date End Date Toshia Garza DO [address] [place] [address] PCP - General Family Medicine 12/07/22 documented as of this encounter"
--- OUTSIDE RECORDS SUMMARY | 2023-12-06 23:39 | External Medical Summary | Summary of Care ---
Author Name Unknown Organization [facility] Address [address] [place] [address] Phone [phone] Care Team Providers Care Corn Popper Name Role Phone Toshia Reynaga DO Primary Care Provider [phone] Reason for Visit * Reason Onset Date Comments Emergency Department Follow-Up 06/13/2023 Encounter Details Date Type Department Care Team (Late st Contact Info) Description 06/13/2023 Telephone Family Practice [facility] [address] [place] [address] Toshia Reynaga DO [address] [place] [address] Emergency Department Follow-Up Allergies Active Allergy Reactions Criticality Noted Date Comments Lisinopril Other (Please comment) 05/06/2022 Burning in throat documented as of this encounter (statuses as of 06/13/2023) Medications Medication Sig Dispensed Refills Start Date [...] Respimat 2.5 MCG/ACT Inhalation Aerosol Solution (Tiotropium [place] Monohydrate)Indicati ons:COPD, very severe (HCC) Inhale 2 Puffs by mouth in the morning. 4 g 3 05/16/2023 Active Albuterol Sulfate HFA 108 (90 Base) MCG/ACT Inhalation Aerosol SolutionIndications: COPD, very severe (HCC) Inhale 2 Puffs by mouth every 4 hours as needed for Cough, Shortness of Breath or Wheezing. 20.1 g 12 05/16/2023 Active Losartan Potassium 50 MG Oral Tablet (Cozaar) Take 2 Tablets by mouth in the morning. 0 06/12/2023 Active Hospital, Clinic, or Other Facility Administered Medication Ordered Dose Route Frequency Start Date End Date Status Albuterol Sulfate (Proventil) (2.5 MG/3ML) 0.083% inhalation solution 2.5 mgIndications:COPD, severity to be determined (HCC) 2.5 mg NEBULIZER ONCE PRN 02/17/2023 02/17/2024 Active documented as of this encounter (statuses as of 06/13/2023) Active Problems Problem Noted Date Diagnosed Date [...] as of this encounter (statuses as of 06/13/2023) Resolved Problems Problem Noted Date Diagnosed Date Resolved Date Chronic obstructive pulmonary disease 05/11/2023 06/08/2023 Overview: Per COPD GOLD Classification documented as of this encounter (statuses as of 06/13/2023) Social History Tobacco Use Types Packs/Day Years [...] encounter Miscellaneous Notes * Telephone Encounter - Cee Diaz - 06/13/2023 1:01 PM EST Appt scheduled with son for 06-20 Son was told to call Dr Galan office about her nose to get seen today/tomorrow time frame, he willcall them now * Telephone Encounter - Toshia Reynaga DO - 06/13/2023 12:32 PM EST Ok to schedule any provider for follow up * Telephone Encounter - Azam Cardona RN - 06/13/2023 12:08 PM EST Scheduling: Please see call details and schedule patient for ER follow up. ER records from 06/12/2023 from [facility] printed and placed on PCP's desk for review. * Telephone Encounter - Greer Arriaga OSA - 06/13/2023 11:07 AM EST Patient needs ED Follow-up. Did patient decline to see other providers in their home clinic? : NO If New Patient - Were surrounding clinics offered? N/A Please see call details. documented in this encounter Plan of Treatment Upcoming Encounters Date Type Department Care Team (Latest Contact Info) Description 06/16/2023 2:00 PM EST [facility] [address] [facility] [place] [address] Huong Oseguera CRNP 132 [facility] [place] [address] 06/19/2023 9:00 AM EST Pharmacy Pharmacy Hematology Oncology [facility] [address] [place] [address] [facility] Hem/Onc [address] [place] [address] 06/20/2023 10:00 AM EST Nurse Only Ancillary [facility] 132 [facility] [place] [address] Sanjeev, Nurse [facility] [address] [facility] [place], [place] [address] 06/20/2023 2:00 PM EST Office Visit Family Practice [facility] [address] [facility] [place] [address] Toshia Reynaga, 132 [facility] [place] [address] 07/04/2023 9:15 AM EST Office Visit Hematology/Oncology [facility] [address] [place] [address] Zeeshan Choi MD [address] [place] [address] 07/28/2023 7:30 AM EST Hospital Encounter OR [facility], Operating Room [facility] [address] [place] [phone] Paula Callahan MD [address] [place] [address] 07/28/2023 7:30 AM EST - 07/28/2023 8:16 AM EST Surgery OR [facility], Operating Room [facility] [address] [place] [phone] Paula Callahan MD [address] [place] [address] EXCISION FACE/SCALP SUBQ TUMOR, 2 CM OR MORE 08/07/2023 11:15 AM EST Office Visit General Surgery, [facility] [address] [place] [address] Paula Callahan MD [address] [place] [address] 08/14/2023 11:00 AM EST Office Visit Family Practice [facility] [address] [place] [address] Toshia Reynaga DO [address] [place] [address] 12/06/2023 11:20 AM EDT Office Visit Dermatology [address] [place] [address] Toshia Mattson PA-C [address] [place] [address] [place] [address] Scheduled Procedures Name Priority Associated Diagnoses Date/Ti [...] RESISTANT HTN 04/19/2023 CKD PHOS USE SMARTSET 17124 11/11/2023 11/10/2022 Albumin/Creatinine Ratio 05/11/2024 05/11/2023, 07/24 CKD HGB USE SMARTSET 95130 05/11/202405/11, 05/11/2023, 04/10/2023, Additional history exists O2 ASSESSMENT COMPLETED IN PAST YEAR FOR COPD 05/16/2024 05/16/2023 DXA Scan 12/07/2032 12/07/2022 GARDASIL-HPV IMMUNIZATION SERIES [...] filedocumented as of this encounter Care Teams Corn Popper Relationship Specialty Start Date End Date Toshia Reynaga DO [address] [place] [address] PCP - General Family Medicine 12/07/22 documented as of this encounter
--- OUTSIDE RECORDS SUMMARY | 2023-12-06 23:39 | External Medical Summary ---
Author Name Unknown Address Unknown Organization [facility] [address] [place] [address] Laboratory Report Ordering Provider Test Date Status SHAYNE COLÓN 06/20/2023 10:20:15 Final Observation Date Value Abnormality Reference (Units ) Status BUN 06/20/2023 10:20:15 26 Above high normal 6-20 (mg/dL) Final Creatinine 06/20/2023 10:20:15 1.0 0.5-1.0 (mg/dL) Final Glomerular filtration rate/1.73 sq M.predicted [Volume Rate/Area] in Serum, Plasma or Blood by Creatinine-based formula (CKD-EPI) 06/20/2023 10:20:15 56 Below low normal >=60 (mL/min) Final eGFR is calculated based on the CKD-EPI 2020 equation SODIUM 06/20/2023 10:20:15 142 135-146 (m mol/L) Final Potassium 06/20/2023 10:20:15 4.0 3.5-5.1 (m mol/L) Final Cl 06/20/2023 10:20:15 105 98-107 (mm ol/L) Final CO2 06/20/2023 10:20:15 30 22-32 (mmo l/L) Final Anion gap 06/20/2023 10:20:15 7 7-15 (mmol /L) Final Glucose 06/20/2023 10:20:15 97 70-120 (mg /dL) Final Calcium 06/20/2023 10:20:15 9.0 8.4-10.2 ( mg/dL) Final Performing Location [facility] [address] [place] [address]
--- OUTSIDE RECORDS SUMMARY | 2023-12-06 23:39 | External Medical Summary | Summary of Care ---
Author Name Unknown Organization [facility] Address [address] [place] [address] Phone [phone] Care Team Providers Care Cosmetics Machine Operator Name Role Phone Toshia Reynaga DO Primary Care Provider [phone] Reason for Visit * Reason Onset Date Comments Patient Assistance Program 06/28/2023 Encounter Details Date Type Department Care Team (Late st Contact Info) Description 06/28/2023 Telephone Hematology/Oncology [facility] [place] [address] [facility] [place] [address] Zeeshan Choi MD [address] [facility] [place] [address] Patient Assistance Program Allergies Active Allergy Reactions Criticality Noted Date Comments Lisinopril Other (Please comment) 05/06/2022 Burning in throat documented as of this encounter (statuses as of 06/28/2023) Medications Medication Sig Dispensed Refills Start Date [...] Respimat 2.5 MCG/ACT Inhalation Aerosol Solution (Tiotropium [place] Monohydrate)Indicati ons:COPD, very severe (HCC) Inhale 2 [...] as of this encounter (statuses as of 06/28/2023) Active Problems Problem Noted Date Diagnosed Date [...] as of this encounter (statuses as of 06/28/2023) Resolved Problems Problem Noted Date Diagnosed Date Resolved Date Chronic obstructive pulmonary disease 05/11/2023 06/08/2023 Overview: Per COPD GOLD Classification documented as of this encounter (statuses as of 06/28/2023) Social History Tobacco Use Types Packs/Day Years [...] encounter Miscellaneous Notes * Telephone Encounter - Praveena Modi OSA - 06/28/2023 3:06 PM EST Patient Assistance Name of Medication: Avatrombopag Maleate 20 MG Oral Tablet Was patient spoken to: : YES. Pt gave me permission to electronically sign application for her. Type of assistance: Pharmacy Dorene Applications mailed: : YES Follow up: 06/29/2023 Thank you, Praveena Modi Medication Parliamentary Librarian 06/28/2023, 3:06 PM documented in this encounter Plan of Treatment Upcoming Encounters Date Type Department Care Team (Latest Contact Info) Description 07/04/2023 9:15 AM EST Office Visit Hematology/Oncology [facility] [address] [place] [address] Zeeshan Choi MD [address] [place] [address] 07/04/2023 10:50 AM EST Nurse Only Ancillary [facility] [address] [place] [address] Sanjeev, Nurse [facility]am [facility] [address] [place] [address] 07/18/2023 9:00 AM EST Pharmacy Pharmacy Hematology Oncology [facility] [address] [place] [address] [facility] Hem[facility]Onc [address] [place] [address] 07/28/2023 7:30 AM EST Hospital Encounter OR [facility], Operating Room [facility] [address] [phone] Paula Callahan MD [address] [place] [address] 07/28/2023 7:30 AM EST - 07/28/2023 8:16 AM EST Surgery OR [facility], Operating Room [facility] [address] [place] [phone] Paula Callahan MD [address] [place] [address] EXCISION FACE/SCALP SUBQ TUMOR, 2 CM OR MORE 08/07/2023 11:15 AM EST Office Visit General Surgery, [facility] [address] [address] Paula Callahan MD [address] [place] [address] 08/14/2023 11:00 AM EST Office Visit Family Practice [facility] [address] [place] [address] [address] Toshia Reynaga DO [address] [place] [address] 12/06/2023 11:20 AM EDT Office Visit Dermatology [address] [place] [address] Toshia Mattson PA-C [address] [place] [address] [place] [address] 12/21/2023 2:00 PM EDT Office Visit Cardiology, [facility] [address] [place] [address] Huong Oseguera CRNP [address] [place] [address] Scheduled Procedures Name Priority Associated Diagnoses Date/Ti [...] RESISTANT HTN 04/19/2023 CKD PHOS USE SMARTSET 26271 11/11/2023 11/10/2022 Albumin/Creatinine Ratio 05/11/2024 05/11/2023, 07/24 O2 ASSESSMENT COMPLETED IN PAST YEAR FOR COPD 05/16/2024 05/16/2023 CKD HGB USE SMARTSET 08003 06/20/202406/20, 06/20/2023, 05/11/2023, Additional history exists DXA [...] filedocumented as of this encounter Care Teams Cosmetics Machine Operator Relationship Specialty Start Date End Date Toshia Reynaga DO [address] [place] [address] PCP - General Family Medicine 12/07/22 documented as of this encounter
--- OUTSIDE RECORDS SUMMARY | 2023-12-06 23:39 | External Medical Summary ---
Author Name Unknown Address Unknown Organization [facility] [place] [address] Laboratory Report Ordering Provider Test Date Status RAMU VASQUES 06/20/2023 10:20:15 Final Observation Date Value Abnormality Reference (Units ) Status Nucleated erythrocytes/100 leukocytes [Ratio] in Blood by Automated count 06/20/2023 10:20:15 Final Acanthocytes [Presence] in Blood by Light microscopy 06/20/2023 10:20:15 Moderate Abnormal None Seen Final Elliptocytes [Presence] in Blood by Light microscopy 06/20/2023 10:20:15 Moderate Abnormal None Seen Final Schistocytes 06/20/2023 10:20:15 Few Abnormal None Seen Final Performing Location [facility] 0 - [address] [place] [address]
--- OUTSIDE RECORDS SUMMARY | 2023-12-06 23:39 | External Medical Summary ---
Author Name Unknown Address Unknown Organization [facility] [place] [address] Laboratory Report Ordering Provider Test Date Status RAMU VASQUES 06/20/2023 10:20:15 Final Observation Date Value Abnormality Reference (Units ) Status SYNC LEUKOCYTES IN BLOOD BY AUTOMATED COUNT 06/20/2023 10:20:15 4.56 4.00-10.80 (K/uL) Final Segs 06/20/2023 10:20:15 65.8 40.0-75.0 (%) Final Lymphs % 06/20/2023 10:20:15 22.1 18.0-42.0 (%) Final Monos 06/20/2023 10:20:15 9.1 1.0-11.0 (%) Final Eosinophils 06/20/2023 10:20:15 2.5 0.0-6.0 (%) Final Basos 06/20/2023 10:20:15 0.5 0.0-2.0 (%) Final Absolute Segs 06/20/2023 10:20:15 2.89 1.80-7.70 (K/uL) Final Lymphs, absolute 06/20/2023 10:20:15 0.97 Below low normal 1.00-4.80 (K/ul) Final Monos, Abs 06/20/2023 10:20:15 0.40 0.00-1.10 (K/uL) Final Eos, Abs 06/20/2023 10:20:15 0.11 0.00-0.70 (K/uL) Final Basos, Abs 06/20/2023 10:20:15 0.02 0.00-0.20 (K/uL) Final Performing Location [facility] 0 - [address] [place] [address]
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
--- OUTSIDE RECORDS SUMMARY | 2023-12-06 23:39 | External Medical Summary | Summary of Care ---
Author Name Unknown Organization [facility] Address [address] [place] [address] Phone [phone] Care Team Providers Care Executive Vice President Name Role Phone Toshia Reynaga DO Primary Care Provider [phone] Reason for Visit * Reason Comments Medication Management Encounter Details Date Type Department Care Team (Late st Contact Info) Description 06/19/2023 9:00 AM [facility] Pharmacy Pharmacy Hematology Oncology [facility] [address] [place], [place] [id number] [facility] Hem/Onc [address] [place], [place] [phone] Chronic ITP (idiopathic thrombocytopenia) (HCC)* Allergies Active Allergy Reactions Criticality Noted Date Comments Lisinopril Other (Please comment) 05/06/2022 Burning in throat documented as of this encounter (statuses as of 06/19/2023) Medications Medication Sig Dispensed Refills Start Date [...] Respimat 2.5 MCG/ACT Inhalation Aerosol Solution (Tiotropium [place] Monohydrate)Indicati ons:COPD, very severe (HCC) Inhale 2 [...] as of this encounter (statuses as of 06/19/2023) Active Problems Problem Noted Date Diagnosed Date [...] as of this encounter (statuses as of 06/19/2023) Resolved Problems Problem Noted Date Diagnosed Date Resolved Date Chronic obstructive pulmonary disease 05/11/2023 06/08/2023 Overview: Per COPD GOLD Classification documented as of this encounter (statuses as of 06/19/2023) Social History Tobacco Use Types Packs/Day Years [...] as of this encounter Progress Notes * Raven Montoya PHARM Tech - 06/19/2023 9:51 AM EST MEDICATION THERAPY MANAGEMENT AVATROMBOPAG TREATMENT PROGRESS NOTE Edilma Kennedy [id number] Patient Phone Numbers Son: Christian Communication: Spoke to Bryan Gonzales Treatment: Medication: Avatrombopag (Doptelet) Indication/Staging/Diagnosis Code: ITP/D69.3 Dose: 40mg daily (DI 11/03/22) Administration: with food Start Date: November 2019 Primary Er Medical Technician/Oncologist: Dr. Gabriel Choi Patient will have labs drawn at [facility] tomorrow, 06/20/2023 @ 10:00 AM. MYRA Camacho Tech Pharmacy Intake Coordinator Oral Chemotherapy Clinic 06/19/23,9:55 AM Time Spent on Encounter: 6 - 10 minutes Encounter Group: Oncology Encounter Interventions Item Category: Oral Chemotherapy Other: avatrombopag Problem/Rationale: Effectiveness: Needs additional monitoring - Medication Requires monitoring Pharmacist Intervention(s): Lab work requested Magnitude of Intervention: Monitoring with no interventions (Level 0) documented in this encounter Plan of Treatment Upcoming Encounters Date Type Department Care Team (Latest Contact Info) Description 06/20/2023 10:00 AM EST [facility] [address] [place] [address] Sanjeev, Nurse Fam [facility] [address] [place] [address] 06/20/2023 2:00 PM EST Office Visit Family Practice [facility] [address] [place] [address] Toshia Reynaga DO [address] [place] [address] 07/04/2023 9:15 AM EST Office Visit Hematology/Oncology [facility] [place] [address] Zeeshan Choi MD 200 [facility] [place] [address] 07/28/2023 7:30 AM EST Hospital Encounter OR [facility], Operating Room [facility] [address] [place] [phone] Paula Callahan MD [address] [place] [address] 07/28/2023 7:30 AM EST - 07/28/2023 8:16 AM EST Surgery OR [facility], Operating Room [facility] [address] [place] [phone] Paula Callahan MD [address] [place] [address] EXCISION FACE/SCALP SUBQ TUMOR, 2 CM OR MORE 08/07/2023 11:15 AM EST Office Visit General Surgery, [facility] [address] [place] [address] Paula Callahan MD [address] [place] [address] 08/14/2023 11:00 AM EST Office Visit Family Practice [facility] [address] [place] [address] [address] Toshia Reynaga DO 132 [place] [address] 12/06/2023 11:20 AM EDT Office Visit Dermatology [address] [place] [address] Toshia Mattson PA-C [address] [place] [address] [place] [address] 12/21/2023 2:00 PM EDT Office Visit Cardiology, [facility] [address] [place] [address] [address] Huong Oseguera CRNP [address] [place] [address] Scheduled Procedures Name Priority Associated Diagnoses Date/Ti [...] RESISTANT HTN 04/19/2023 CKD PHOS USE SMARTSET 38634 11/11/2023 11/10/2022 Albumin/Creatinine Ratio 05/11/2024 05/11/2023, 07/24 CKD HGB USE SMARTSET 03209 05/11/202405/11, 05/11/2023, 04/10/2023, Additional history exists O2 [...] cyst documented in this encounter Care Teams Executive Vice President Relationship Specialty Start Date End Date Toshia Reynaga DO [address] [place] [address] PCP - General Family Medicine 12/07/22 documented as of this encounter
--- OUTSIDE RECORDS SUMMARY | 2023-12-06 23:39 | External Medical Summary | Summary of Care ---
Author Name Unknown Organization [facility] Address [address] [place] [address] Phone [phone] Care Team Providers Care Senior Laboratory Technician Name Role Phone Toshia Reynaga DO Primary Care Provider [phone] Reason for Visit * Reason Comments Outpatient Testing Encounter Details Date Type Department Care Team (Late st Contact Info) Description 06/20/2023 10:50 AM EST Laboratory Laboratory, [facility] [address] [place] [address] [facility] [address] [place] [address] Chronic ITP (idiopathic thrombocytopenia) (HCC); HTN, goal below 140/90; Diastolic dysfunction Allergies Active Allergy Reactions Criticality [...] Respimat 2.5 MCG/ACT Inhalation Aerosol Solution (Tiotropium [place] Monohydrate)Indicati ons:COPD, very severe (HCC) Inhale 2 [...] Care Team (Latest Contact Info) Description 06/20/2023 2:00 PM EST Office Visit Family Practice [facility] [address] [place] [address] Toshia Reynaga DO [address] [place] [address] Arrived 07/04/2023 9:15 AM EST Office Visit Hematology/Oncology [facility] 200 [facility] [place] [address] Zeeshan Choi MD 200 [facility] [place] [address] 07/28/2023 7:30 AM EST Hospital Encounter OR [facility], Operating Room [facility] [address] [place] [phone] Paula Callahan MD [address] [place] [address] 07/28/2023 7:30 AM EST - 07/28/2023 8:16 AM EST Surgery OR [facility], Operating Room [facility] [address] [place] [phone] Paula Callahan MD [address] [place] [address] EXCISION FACE/SCALP SUBQ TUMOR, 2 CM OR MORE 08/07/2023 11:15 AM EST Office Visit General Surgery, [facility] [address] [place] [address] Paula Callahan MD [address] [place] [address] 08/14/2023 11:00 AM EST Office Visit Family Practice [facility] [address] [place] [address] Toshia Reynaga DO [address] [place] [address] 12/06/2023 11:20 AM EDT Office Visit Dermatology [address] [place] [address] Toshia Mattson PA-C [address] [place] [address] [place] [address] 12/21/2023 2:00 PM EDT Office Visit Cardiology, [facility] [address] [place] [address] Huong Oseguera CRNP [address] [place] [address] Pending Results Name Type Priority Associated Diagnoses Date /Time CBC WITH WBC DIFFERENTIAL Lab STAT Chronic ITP (idiopathic thrombocytopenia) ([facility]) 06/20/2023 10:20 AM EST BASIC METABOLIC PANEL Lab Routine HTN, goal below 140/90 Diastolic dysfunction 06/20/2023 10:20 AM EST CBC Lab STAT Chronic ITP (idiopathic thrombocytopenia) ([facility]) 06/20/2023 10:20 AM EST DIFFERENTIAL, AUTOMATED Lab STAT Chronic ITP (idiopathic thrombocytopenia) (HCC) 06/20/2023 10:20 AM EST Scheduled Procedures Name Priority Associated Diagnoses Date/Ti [...] RESISTANT HTN 04/19/2023 CKD PHOS USE SMARTSET 46919 11/11/2023 11/10/2022 Albumin/Creatinine Ratio 05/11/2024 05/11/2023, 07/24 CKD HGB USE SMARTSET 13451 05/11/202405/11, 05/11/2023, 04/10/2023, Additional history exists O2 [...] ITP (idiopathic thrombocytopenia) (HCC) Immune thrombocytopenic purpura HTN, goal below 140/90 Unspecified essential hypertension Diastolic dysfunction Heart disease, unspecified Sebaceous cyst documented in this encounter Care Teams Senior Laboratory Technician Relationship Specialty Start Date End Date Toshia Reynaga DO [address] [place] [address] PCP - General Family Medicine 12/07/22 documented as of this encounter
--- OUTSIDE RECORDS SUMMARY | 2023-12-06 23:39 | External Medical Summary | Summary of Care ---
Author Name Unknown Organization [facility] Address [address] [place] [address] Phone [phone] Care Team Providers Care Manager Store Name Role Phone Toshia Garza DO Primary Care Provider [phone] Reason for Visit * Reason Comments Emergency Department Follow-Up Pt here f or ER f/u for facial contusion from accidental fall few weeks ago. Encounter Details Date Type Department Care Team (Late st Contact Info) Description 06/20/2023 2:00 PM EST Office Visit Family Practice [facility] [address] [facility] [place] [address] Toshia Garza DO [address] [facility] [place] [address] HTN, goal below 140/90*; Personal history of [...] Respimat 2.5 MCG/ACT Inhalation Aerosol Solution (Tiotropium [place] Monohydrate)Indica tions:COPD, very severe (HCC) Inhale 2 [...] below 140/90 I10 Chronic ITP (idiopathic thrombocytopenia) ([facility]) D69.3 Constipation K59.00 Protein-calorie malnutrition ([facility]) E46 Stage 3a chronic kidney disease ([facility]) N18.31 Hx of nonmelanoma skin cancer Z85.828 COPD, group B, by GOLD 2017 classification ([facility]) J44.9 Current Outpatient Medications Medication Sig [...] Respimat 2.5 MCG/ACT Inhalation Aerosol Solution (Tiotropium [place] Monohydrate) Inhale 2 Puffs by mouth in [...] 07/04/2023 9:15 AM EST [facility] [place] [address] Zeeshan Choi MD 200 [facility] [place] [address] 07/04/2023 10:50 AM EST Nurse Only [facility]illary [facility] [address] Nurse Christiano [facility]ace [facility] [address] 07/28/2023 7:30 AM EST Hospital Encounter OR [facility], Operating Room [facility] [address] [place] [phone] Paula Callahan MD [address] [place] [address] 07/28/2023 7:30 AM EST - 07/28/2023 8:16 AM EST Surgery OR [facility], Operating Room [facility] [address] [place] [phone] Paula Callahan MD [address] [place] [address] EXCISION FACE/SCALP SUBQ TUMOR, 2 CM OR MORE 08/07/2023 11:15 AM EST Office Visit General Surgery, [facility] [address] [place] [address] Paula Callahan MD [address] [place] [address] 08/14/2023 11:00 AM EST Office Visit Family Practice [facility] [address] [place] [address] Toshia Garza DO [address] [place] [address] 12/06/2023 11:20 AM EDT Office Visit Dermatology [address] [place] [address] Toshia Mattson PA-C [address] [place] [address] [place] [address] 12/21/2023 2:00 PM EDT Office Visit Cardiology, [facility] [address] [place] [address] Huong Oseguera CRNP [address] [place] [address] Scheduled Procedures Name Priority Associated Diagnoses [...] RESISTANT HTN 04/19/2023 CKD PHOS USE SMARTSET 54140 11/11/2023 11/10/2022 Albumin/Creatinine Ratio 05/11/2024 05/11/2023, 07/24 CKD HGB USE SMARTSET 48117 05/11/202405/11, 05/11/2023, 04/10/2023, Additional history exists O2 [...] cyst documented in this encounter Care Teams Manager Store Relationship Specialty Start Date End Date Toshia Garza DO [address] [place] [address] PCP - General Family Medicine 12/07/22 documented as of this encounter"
--- OUTSIDE RECORDS SUMMARY | 2023-12-06 23:39 | External Medical Summary | Summary of Care ---
Author Name Unknown Organization [facility] Address [address] [place] [address] Phone [phone] Care Team Providers Care Nurse Gynecology Name Role Phone Ronnell Toshiatheodore Paul DO Primary Care Provider [phone] Reason for Visit * Reason Comments Follow Up 3 month follow up. E flaquita at night- sock ring but subsides by morning. Recent fall on 06/12/23 and went to [facility] ED. Denies chest pain, palpitations, dizziness and SOB. Encounter Details Date Type Department Care Team (Late st Contact Info) Description 06/16/2023 2:00 PM EST Office Visit Cardiology, [facility] [address] [place] [address] Huong Oseguera CRNP [address] [place] [address] HTN, goal below 140/90*; Diastolic dysfunction; Premature atrial contraction Allergies Active Allergy Reactions Criticality Noted Date Comments Lisinopril Other (Please comment) 05/06/2022 Burning in throat documented as of this encounter (statuses as of 06/16/2023) Medications Medication Sig Dispensed Refills Start Date [...] Respimat 2.5 MCG/ACT Inhalation Aerosol Solution (Tiotropium [place]on Monohydrate)Indicati ons:COPD, very severe (HCC) Inhale 2 [...] as of this encounter (statuses as of 06/16/2023) Active Problems Problem Noted Date Diagnosed Date [...] as of this encounter (statuses as of 06/16/2023) Resolved Problems Problem Noted Date Diagnosed Date Resolved Date Chronic obstructive pulmonary disease 05/11/2023 06/08/2023 Overview: Per COPD GOLD Classification documented as of this encounter (statuses as of 06/16/2023) Social History Tobacco Use Types Packs/Day Years [...] Sign Reading Time Taken Comments Blood Pressure 144/84 06/16/2023 2:07 PM EST Pulse 68 06/16/2023 1:47 PM EST Temperature - - Respiratory Rate 15 06/16/2023 1:47 PM EST Oxygen Saturation - - Inhaled Oxygen Concentration - - Weight 52.7 kg (116 lb 4 oz) 06/16/2023 1:47 PM EST Height - - Body Mass Index 22.7 05/16/2023 11:29 AM EDT documented in this encounter Progress Notes * Huong Oseguera CRNP - 06/16/2023 2:00 PM EST 06/16/2023 Cardiology Follow Up Primary Engine Assembler: TBD Cardiac Problems: HTN PAC's/SVT Diastolic dysfunction Chronic ITP CKD Former tobacco abuse, likely underlying COPD HPI: Edilma eKnnedy is a 87 year old female presents for close cardiology follow up. Was seen in initial consultation by Nancy Lynch PA-C per request of her PCP for evaluation of a "irregular rhythm and hypertension". Patient had recently moved here from [place] to live with her son after her spouse approx a year ago. Upon seeing her PCP a heart murmur was auscultated as well as a "irregular heartbeat". Echo as completed which demonstrated normal LVEF with mild LVH and grade 2 diastolic dysfunction . She had mild aortic sclerosis without stenosis and mild MR. She also had mild pulmonary hypertension. She had an irregular heart rhythm observed during echocardiogram, which was not clearly defined. She went on to have ZIO monitor completed which demonstrated sinus bradycardia with PAC's (7% burden) and non sustained SVT. Based on her results, no further testing or changes to medication therapies were made. Patient's bpwas significantly elevated and so patient was encouraged to continue home monitoring and bring results with her to day's appointment. Patient presents today. She sustained a significant ground level fall. She states that she stepped up the curb and lost her foot and face planted. She was taking by ambulance to [facility] for evaluation. She states that she sustained a nasal fracture, but no other fractures. She has significant bruisingand her right eye sclera shows is injected. BP is significantly elevated again today. Repeat BP 144/84. Patient states she forget her home BP log. Reports home readings are around 140's systolic. Her PCP recently added and then increased her Losartan approx 3 weeks ago. She does endorse eating some salty foods, but her son takes the salt shaker away. She reports compliance with all medication therapies with no untoward effects. REVIEW OF SYSTEMS: See HPI for pertinent [...] Tablet in the morning. 90 Tablet 3 Avatrombopag Maleate 20 MG Oral Tablet Take 2 tablets (40mg) by mouth in morning. 60 Tablet 5 Spiriva Respimat 2.5 MCG/ACT Inhalation Aerosol Solution (Tiotropium Acton Monohydrate) Inhale 2 Puffs by mouth in the morning. 4 g 3 Albuterol Sulfate HFA 108 (90 Base) MCG/ACT Inhalation Aerosol Solution Inhale 2 Puffs by mouth every 4 hours as needed for Cough, Shortness of Breath or Wheezing. 20.1 g 12 Losartan Potassium 50 MG Oral Tablet (Cozaar) Take 2 Tablets by mouth in the morning. Lansoprazole 30 MG Oral Capsule Delayed Release (Prevacid) 1 Capsule. Current Facility-Administered Medications Medication Dose Route Frequency Provider Last Rate Last Admin Albuterol Sulfate (Proventil) (2.5 MG/3ML) 0.083% inhalation solution 2.5 mg 2.5 mg Nebulizer Once PRN Toshia Reynaga DO 2.5 mg at 04/20/23 1131 No past medical history on file. No family history on file. Social History Socioeconomic History Marital status: Tobacco Use Smoking status: Never Passive exposure: Never Smokeless tobacco: Never Vaping Use Vaping Use: Never used Substance and Sexual Activity Alcohol use: Never Drug use: Never OBJECTIVE/PHYSICAL EXAMINATION: BP 144/84 | Pulse 68 | Resp 15 | Wt 52.7 kg (116 lb 4 oz) | BMI 22.70 kg/m | BSA 1.49 m General: No acute distress. A+Ox3. HEENT: [...] insight. DATA Labs & Imaging Reviewed Below: ZIO monitor report reviewed dated January 2023: Final Interpretation Duration: 14 days ranging from 02/20/2023 until 03/06/2023 Patient had a min HR of 44 bpm, max HR of 154 bpm, and avg HR of 56 bpm. Predominant underlying rhythm was Sinus Rhythm. 58 Supraventricular Tachycardia runs occurred, the run with the fastest interval lasting 4 beats with a max rate of 154 bpm, the longest lasting 10.7 secs with an avg rate of 120 bpm. Isolated SVEs were frequent (7.1%, [address]), SVE Couplets were occasional (1.3%, 7522), and SVE Triplets were rare [...] premature atrial contraction burden. No symptoms reported. Echocardiogram report reviewed dated January 2023: Interpretation Summary The examination is adequate to evaluate the [...] rhythm observed during echocardiogram. Consider EKG and/or ZIO patch monitor for further assessment. ASSESSMENT/PLAN: 87 year old year old female 1. HTN, goal below 140/90 -elevated on initial check in office but repeat is improved -continue current medication therapies including bisoprolol, hydrochlorothiazide, and losartan. -continue home monitoring an attempt to bring record to next appointment -would not advise increasing bisoprolol due to low heart rate, would not increase hydrochlorothiazide due to current renal function, and patient is now on max dose of ARB Continue to encourage low-sodium diet 2 g or less If blood pressure would remain above target despite medication therapies and dietary modification, would recommend renal ultrasound and consideration for addition of alpha 2 elva 2. Diastolic dysfunction -denies any change in functional capacity -plan for repeat echo in 1 year around January 2024 for surveillance 3. Premature atrial contraction -remains asymptomatic Denies any dizziness lightheadedness or palpitations associated with her recent fall DISPOSITION: Follow up 6 months or if symptoms worsen/fail to improve. All questions were answered to the patients satisfaction. Patient advised to report to ED with any and all emergencies. The patient agrees to the above plan and will call with additional questions or concerns. LOLITA [facility], [address] [address] I spent a total of 30 minutes on the date of service in preparation, delivery, and documentation ofthe care provided to Edilma Kennedy excluding any time spent in the performance of separately billed services. This chart was completed in part utilizing [employer] Speech Voice Recognition Software. Grammatical errors, random [...] documented in this encounter Nursing Notes * Zev Young LPN - 06/16/2023 1:47 PM EST Patient identified by full name and date of Chief Complaint Patient presents with Follow Up 3 month follow up. Edema at night- sock ring but subsides by morning. Recent fall on 06/12/23 and went to [facility] ED. Denies chest pain, palpitations, dizziness and SOB. Examination Room: 3 Name: Edilma Kennedy Date of : (1935). Reason for Visit: 3 month follow up Interim Hospitalization(s): [facility] ED 06/12/23 Problems/Concerns: See chief complaint Chest Pain/SOB: Denies [facility] Discussed: Not applicable [facility] is a way you can [...] Department Care Team (Latest Contact Info) Description 06/19/2023 9:00 AM EST Pharmacy Pharmacy Hematology Oncology [facility] [address] [place] [address] [facility], [facility] Hem/Onc [address] [place] [address] 06/20/2023 10:00 AM EST Nurse Only Ancillary [facility] [place] 132 [facility] [place] [address] Sanjeev Nurse Fam Shannon [place] [address] [place] [address] 06/20/2023 2:00 PM EST Office Visit Family Practice [facility] [place] [address] [facility] [place] [address] Toshia Reynaga, DO [address] [place] [address] 07/04/2023 9:15 AM EST Office Visit Hematology/Oncology [facility] [address] [place] [address] Zeeshan Choi MD 200 [facility] [place], [place] [address] 07/28/2023 7:30 AM EST Hospital Encounter [facility], Operating Room [facility] [address] [place] [phone] Paula Callahan MD [address] [place] [address] 07/28/2023 7:30 AM EST - 07/28/2023 8:16 AM EST Surgery OR [facility], [facility] [address] [place] [phone] Paula Callahan MD [address] [place] [address] EXCISION FACE/SCALP SUBQ TUMOR, 2 CM OR MORE 08/07/2023 11:15 AM EST Office Visit General Surgery, [facility] [address] [place] [address] Paula Callahan MD [address] [place] [address] 08/14/2023 11:00 AM EST Office Visit Family Practice [facility] [address] [place] [address] Toshia Reynaga, DO [address] [place] [address] 12/06/2023 11:20 AM EDT Office Visit Dermatology [address] [place] [address] Toshia Mattson PA-C [address] [place] [address] [place] [address] 12/21/2023 2:00 PM EDT Office Visit Cardiology, [facility] [address] [place] [address] Huong Oseguera CRNP [address] [place] [address] Scheduled Procedures Name Priority Associated Diagnoses Date/Ti [...] RESISTANT HTN 04/19/2023 CKD PHOS USE SMARTSET 448[address] 11/11/2023 11/10/2022 Albumin/Creatinine Ratio 05/11/2024 05/11/2023, 07/24 CKD HGB USE SMARTSET 01849 05/11/202405/11, 05/11/2023, 04/10/2023, Additional history exists O2 [...] goal below 140/90- Primary Unspecified essential hypertension Diastolic dysfunction Heart disease, unspecified Premature atrial contraction Supraventricular premature beats Sebaceous cyst documented in this encounter Care Teams Nurse Gynecology Relationship Specialty Start Date End Date Toshia Reynaga DO [address] [place] [address] PCP - General Family Medicine 12/07/22 documented as of this encounter
--- OUTSIDE RECORDS SUMMARY | 2023-12-06 23:39 | External Medical Summary | Summary of Care ---
Author Name Unknown Organization [facility] Address [address] [place] [address] Phone [phone] Care Team Providers Care Furnace Operator Oil [employer] Name Role Phone Toshia Reynaga DO Primary Care Provider [phone] Encounter Details Date Type Department Care Team ([facility] Contact Info) Description 06/29/2023 Specialty Pharmacy [facility], [address] [address] Medication, [facility] Specialty, [address] [address] Allergies Active Allergy Reactions Criticality Noted Date Comments Lisinopril Other (Please comment) 05/06/2022 Burning in throat documented as of this encounter (statuses as of 06/29/2023) Medications Medication Sig Dispensed Refills Start Date [...] Respimat 2.5 MCG/ACT Inhalation Aerosol Solution (Tiotropium [place] Monohydrate)Indicati ons:COPD, very severe (HCC) Inhale 2 [...] as of this encounter (statuses as of 06/29/2023) Active Problems Problem Noted Date Diagnosed Date [...] as of this encounter (statuses as of 06/29/2023) Resolved Problems Problem Noted Date Diagnosed Date Resolved Date Chronic obstructive pulmonary disease 05/11/2023 06/08/2023 Overview: Per COPD GOLD Classification documented as of this encounter (statuses as of 06/29/2023) Social History Tobacco Use Types Packs/Day Years [...] as of this encounter Progress Notes * Santino Virgen, reimbursement consultant - 06/29/2023 12:01 PM EST Prescribed medication: Medication: doptelet Shipment date: 07/05 Delivery method: Specialty Mail Location Medication Delivered too? Prescription Address: [address] [place] [address] [facility] 06/29/2023,12:01 PM documented in this encounter Plan of Treatment Upcoming Encounters Date Type Department Care Team (Latest Contact Info) Description 07/04/2023 9:15 AM EST Office Visit Hematology/Oncology [facility] [place] [address] [place] [address] Zeeshan Choi MD [address] [place] [address] 07/04/2023 10:50 AM EST Nurse Only Ancillary [facility] [place] 132 [facility] [place] [address] Nurse Christiano Paec [address] [place] [address] 07/18/2023 9:00 AM EST Pharmacy Pharmacy Hematology Oncology [facility] [address] [place] [address] [facility] [address] [place] [address] 07/28/2023 7:30 AM EST Hospital Encounter [facility], Operating Room [facility] [address] [place] [phone] Paula Callahan MD [address] [place] [address] 07/28/2023 7:30 AM EST - 07/28/2023 8:16 AM EST Surgery OR [facility], Operating Room [facility] [address] [place] [phone] Paula Callahan MD [address] [place] [address] EXCISION FACE/SCALP SUBQ TUMOR, 2 CM OR MORE 08/07/2023 11:15 AM EST Office Visit General Surgery, [facility] [address] [place] [address] Paula Callahan MD [address] [place] [address] 08/14/2023 11:00 AM EST Office Visit Family Practice [facility] [address] [place] [address] Toshia Reynaga DO [address] [place] [address] 12/06/2023 11:20 AM EDT Office Visit Dermatology [address] [place] [address] Toshia Mattson PA-C [address] [place] [address] [place] [address] 12/21/2023 2:00 PM EDT Office Visit Cardiology, [facility] [address] [place] [address] Huong Oseguera CRNP [address] [place] [address] Scheduled Procedures Name Priority Associated Diagnoses Date/Ti [...] RESISTANT HTN 04/19/2023 CKD PHOS USE SMARTSET [address]677 11/11/2023 11/10/2022 Albumin/Creatinine Ratio 05/11/2024 05/11/2023, 07/24 O2 ASSESSMENT COMPLETED IN PAST YEAR FOR COPD 05/16/2024 05/16/2023 CKD HGB USE SMARTSET 14213 06/20/202406/20, 06/20/2023, 05/11/2023, Additional history exists DXA [...] filedocumented as of this encounter Care Teams Furnace Operator Oil [employer] Relationship Specialty Start Date End Date Toshia Reynaga DO [address] [place] [address] PCP - General Family Medicine 12/07/22 documented as of this encounter
--- OUTSIDE RECORDS SUMMARY | 2023-12-06 23:39 | External Medical Summary ---
Author Name Unknown Address Unknown Organization [id number]:LABORATORY [facility] - [address] [place] [address] Laboratory Report Ordering Provider Test Date Status RAMU VASQUES 06/20/2023 10:20:15 Final Observation Date Value Abnormality Reference (Units ) Status Folic Acid 06/20/2023 10:20:15 18.4 >4.5 (ng/ mL) Final Performing Location [facility] - [address] [place] [address]
--- OUTSIDE RECORDS SUMMARY | 2023-12-06 23:39 | External Medical Summary | Summary of Care ---
Author Name Unknown Organization [facility] Address [address] [place] [address] Phone [phone] Care Team Providers Care Breeding Technician Name Role Phone Cris Simons DO Primary Care Provider [phone] Encounter Details Date Type Department Care Team (Late st Contact Info) Description 06/26/2023 Refill Family Practice [facility] [address] [place] [address] Cris Simons DO [address] [place] [address] HTN, goal below 140/90 Allergies Active Allergy Reactions Criticality Noted Date Comments Lisinopril Other (Please comment) 05/06/2022 Burning in throat documented as of this encounter (statuses as of 06/26/2023) Medications Medication Sig Dispensed Refills Start Date [...] Respimat 2.5 MCG/ACT Inhalation Aerosol Solution (Tiotropium [place] Monohydrate)Indica tions:COPD, very severe (HCC) Inhale 2 [...] in the morning. 30 Tablet 5 06/20/2023 3 Discontinue d(Refill) Losartan Potassium 100 MG Oral Tablet (Cozaar)Indication s:HTN, goal below 140/90 Take 1 Tablet by mouth in the morning. 30 Tablet 5 06/20/2023 3 Discontinue d(Refill) Hospital, Clinic, or Other Facility Administered Medication Ordered Dose Route Frequency Start Date End Date Status Albuterol Sulfate (Proventil) (2.5 MG/3ML) 0.083% inhalation solution 2.5 mgIndications:COPD, severity to be determined (HCC) 2.5 mg NEBULIZER ONCE PRN 02/17/2023 02/17/2024 Active documented as of this encounter (statuses as of 06/26/2023) Active Problems Problem Noted Date Diagnosed Date [...] as of this encounter (statuses as of 06/26/2023) Resolved Problems Problem Noted Date Diagnosed Date Resolved Date Chronic obstructive pulmonary disease 05/11/2023 06/08/2023 Overview: Per COPD GOLD Classification documented as of this encounter (statuses as of 06/26/2023) Social History Tobacco Use Types Packs/Day Years [...] encounter Miscellaneous Notes * Telephone Encounter - Cris Simons DO - 06/26/2023 9:20 AM ESTSigned Prescriptions: Disp Refills Losartan Potassium 100 MG Oral Tablet (Coz*90 Tab*3 Sig: Take 1 Tablet by mouth in the morning.Authorizing Provider: CRIS SIMONS amLODIPine Besylate 10 MG Oral Tablet (Nor*90 Tab*3 Sig: Take 1 Tablet by mouth in the morning.Authorizing Provider: CRIS SIMONS * Telephone Encounter - Zohra Fernandez LPN - 06/26/2023 6:56 AM EST Her insurance is requesting a 90 day supply, corrections made, please send to her pharmacy. documented in this encounter Plan of Treatment Upcoming Encounters Date Type Department Care Team (Latest Contact Info) Description 07/04/2023 9:15 AM EST Office Visit Hematology/Oncology [facility] 200 [facility] [place] [address] Zeeshan Choi MD 200 [facility] [place] [address] 07/04/2023 10:50 AM EST Nurse Only Ancillary [facility] 132 [facility] [place] [address] PaceNurse Christiano 132 [facility] [place] [address] 07/18/2023 9:00 AM EST Pharmacy Pharmacy Hematology Oncology [facility] [address] [place] [address] [facility], [facility] Hem/Onc [address] [place] [address] 07/28/2023 7:30 AM EST Hospital Encounter OR [facility], Operating Room [facility] [address] [place] [phone] Paula Callahan MD [address] [place] [address] 07/28/2023 7:30 AM EST - 07/28/2023 8:16 AM EST Surgery OR [facility], Operating Room [facility] [address] [place] [phone] Paula Callahan MD [address] [place] [address] EXCISION FACE/SCALP SUBQ TUMOR, 2 CM OR MORE 08/07/2023 11:15 AM EST Office Visit General Surgery, [facility] [address] [place] [address] Paula Callahan MD [address] [place] [address] 08/14/2023 11:00 AM EST Office Visit Family Practice [facility] [address] [place] [address] Cris Simons DO [address] [place] [address] 12/06/2023 11:20 AM EDT Office Visit Dermatology [address] [place] [address] Cris Mattson PA-C [address] [place] [address] [place] [address] 12/21/2023 2:00 PM EDT Office Visit Cardiology, [facility] [address] [place] [address] Huong Oseguera CRNP [address] [place] [address] Scheduled Procedures Name Priority Associated Diagnoses Date/Ti [...] RESISTANT HTN 04/19/2023 CKD PHOS USE SMARTSET 69602 11/11/2023 11/10/2022 Albumin/Creatinine Ratio 05/11/2024 05/11/2023, 07/24 O2 ASSESSMENT COMPLETED IN PAST YEAR FOR COPD 05/16/2024 05/16/2023 CKD HGB USE SMARTSET 306[address] 06/20/202406/20, 06/20/2023, 05/11/2023, Additional history exists DXA [...] cyst documented in this encounter Care Teams Breeding Technician Relationship Specialty Start Date End Date Cris Simons DO [address] [place] [address] PCP - General Family Medicine 12/07/22 documented as of this encounter
--- OUTSIDE RECORDS SUMMARY | 2023-12-06 23:39 | External Medical Summary ---
Author Name Unknown Address Unknown Organization K01:LABORATORY [facility] - [address] [facility] [address] Laboratory Report Ordering Provider Test Date Status RAMU VASQUES 06/20/2023 10:20:15 Final Observation Date Value Abnormality Reference (Units ) Status Ferritin 06/20/2023 10:20:15 85 13-150 (ng /mL) Final Postmenopausal women have hi gher ferritin levels than pre-menopausal women. The above reference interval is based on pre-menopausal women. Performing Location [facility] [address] [facility] [address]
--- OUTSIDE RECORDS SUMMARY | 2023-12-06 23:39 | External Medical Summary ---
Author Name Unknown Address Unknown Organization K01:LABORATORY [facility] - [address] [place] [address] Laboratory Report Ordering Provider Test Date Status RAMU VASQUES 06/20/2023 10:20:15 Final Observation Date Value Abnormality Reference (Units ) Status Vitamin B12 06/20/2023 10:20:15 599 [address]-0136 (pg/mL) Final Performing Location [facility] - [address] [place] [address]
--- OUTSIDE RECORDS SUMMARY | 2023-12-06 23:39 | External Medical Summary ---
Author Name Unknown Address Unknown Organization [facility] [address] [place] [address] Laboratory Report Ordering Provider Test Date Status RAMU VASQUES 06/20/2023 10:20:15 Final Observation Date Value Abnormality Reference (Units ) Status WBC, Total 06/20/2023 10:20:15 4.56 4.00-10.8 0 (K/uL) Final RBC 06/20/2023 10:20:15 2.73 3.85-5.15 (M/uL) Final Hemoglobin 06/20/2023 10:20:15 8.5 Below low normal 12 .0-15.3 (g/dL) Final HCT 06/20/2023 10:20:15 26.2 Below low normal 36. 0-45.2 (%) Final MCV 06/20/2023 10:20:15 96.0 81.5-97.5 (fL) Final MCH 06/20/2023 10:20:15 31.1 27.0-34.0 (pg) Final MCHC 06/20/2023 10:20:15 32.4 32.0-36.0 (g/dL) Final RDW 06/20/2023 10:20:15 15.1 11.5-15.5 (%) Final Platelets 06/20/2023 10:20:15 98 Below low normal 140 -400 (K/uL) Final MPV 06/20/2023 10:20:15 Final No result - abnormal platele t distribution. Performing Location LABORATORY [facility] 0 - [address] [place] [address]
--- OUTSIDE RECORDS SUMMARY | 2023-12-06 23:39 | External Medical Summary ---
Author Name Unknown Address Unknown Organization K01:LAB[facility]ATORY [facility] - [address] [place] [address] Laboratory Report Ordering Provider Test Date Status RMAU VASQUES 06/20/2023 10:20:15 Final Observation Date Value Abnormality Reference (Units ) Status Iron 06/20/2023 10:20:15 79 33-151 (ug /dL) Final Iron-binding capacity 06/20/2023 10:20:15 303 250-425 (ug/dL) Final Transferrin Sat % 06/20/2023 10:20:15 26 15 -55 (%) Final Performing Location LABORATORY [facility] - [address] [place] [address]
[2023-12-07] MEDS: cefTRIAXone SODIUM 2,000 MG/50 ML BAG IV SCH (01:11)
[2023-12-07 06:19] LABS: Hematocrit (blood only) 24.5 % (37.0-47.0); Hemoglobin 7.6 g/dl (12.0-16.0); Mean Corpuscular Hemoglobin 28.4 pg (25.0-34.0); Mean Corpuscular Volume 91.4 fL (80.0-100.0); Mean Platelet Volume 10.3 fL (9.4-12.4); Platelet Count 586 K/uL (130-400); RDW Coefficient of Variation 16.6 % (11.5-14.5); RDW Standard Deviation 55.5 fL (36.4-46.3); Red Blood Count 2.68 M/uL (4.20-5.40); White Blood Count 12.19 K/ul (4.8-10.8)
[2023-12-07 06:38] LABS: Calcium 8.7 mg/dl (8.6-10.3); Est GFR (African American) 62.8 ml/min; Est GFR (Non-African American) 54.2 ml/min; Magnesium 1.9 mg/dl (1.7-2.4); Potassium 4.1 mmol/L (3.5-5.1)
--- NOTE | 2023-12-07 07:02 | Cardiology Progress Note ---
Date of Service December 07, 2023 Assessment & Plan (1) Atrial fibrillation with rapid ventricular response: (2) Chronic hypoxic respiratory failure, on home oxygen therapy: Plan Impression: 88 year old female with chronic hypoxic respiratory failure presents with worse stephanie shortness possibly in the setting of COPD exacerbation vs PNA. CXR without pulmonary edema. CT of the chest suggestive of possible PNA. BNP mildly elevated, but within normal limits for age. Volume status appears compensated on exam. AFIB RVR noted on telemetry-- rates improving with titration of BB therapy. Plan: Acute on chronic hypoxic respiratory failure: Symptoms likely multifactorial given underlying lung disease, chronic anemia, and possible PNA Patient not examining hypervolemic. -Will defer PNA treatment/antibiotics to primary service -Okay to continue home dose Lasix 20 mg PO daily -Given underlying co-morbidities recommend maintaining a hgb goal of >10. AFIB RVR: Symptomatic improvement with rate control. -Discontinue metoprolol tartrate in favor of metoprolol succinate 50 mg BID. -Continue dose reduced Eliquis 2.5 mg BID (reduced for age and weight) -Maintain K goal of 4.0 and mag goal of 2.0; replace as needed -Patient may have a difficult time maintaining SR given underlying pulmonary disease, given improvement in symptoms will first proceed with rate control with AFIB. Case discussed with Dr. Doherty. Further recommendations pending assessment. I spent a total of 30 minutes on the date of service in preparation, delivery, and documentation of the care provided to the patient excluding any time spent in the performance of separately billed services. LOLITA Begum Department of Cardiology, [facility] This chart was completed in part utilizing Speech Voice Recognition Software. Grammatical errors, random word insertions, pronoun errors, and incomplete sentences are an occasional consequence of this system due to software limitations, ambient noise, and hardware issues. Any formal questions or concerns about the content, text, or information contained within the body of this dictation should be directly addressed to the provider for clarification. Admission and Anticipated Discharge Date Admission Date: December 06, 2023 Supervising Physician Co-Signing Physician Notes Attending attestation: Case reviewed with the advanced practitioner. I have personally performed a history and physical examination on the patient. I have reviewed the advanced practitioner's documentation on the date of service referenced in note, and I agree with, and take responsibility for the plan of care. I spent a total of 20 minutes coordinating, documenting, and providing care for this patient excluding time spent in the performance of separately billed services or time spent by another provider. Vignesh Doherty DO Subjective 88 year old female with chronic hypoxic respiratory failure presents with worsening shortness possibly in the setting of COPD exacerbation vs PNA. CXR without pulmonary edema. CT of the chest suggestive of possible PNA. AFIB RVR noted on telemetry- rates 100-120s; fairly new diagnosis (10/2023) 12/06/2023: Tachycardic rates in A-fib 100s to 120s, metoprolol increased to 25 mg 3 times daily. Anticoagulated with dose reduced Eliquis 2.5 mg twice daily Echo: Low normal LVEF in the range of 50 to 55%, left atrium mildly dilated, mild MR, mild TR, moderately elevated pulmonary systolic pressure of 57 mmHg, relatively unchanged compared to the recent outpatient echocardiogram performed 11/01/2023 within the [facility] 12/07/2023: Telemetry: AFIB 80-90s overnight, 120-140s this am I/O: +1.3L Weight: 46.4 kg >> 45.9 kg Labs: Anemia with a hemoglobin of 7.6, baseline around 8-9. Renal function stable. Potassium 4.1. Mag 1.9. Upon entrance into the room patient resting in bed. Feels subjectively improved. No longer feels chest tightness of palpitations. Breathing at baseline. No dizziness, syncope or near syncope. No orthopnea, PND, or increased lower extremity edema. No fever, chills, cough, hematochezia, melena, or hemoptysis. Review of Systems Review of Systems: All systems reviewed & are unremarkable except as noted in HPI & below Physical Exam Constitutional: WD/WN, vitals as above + thin; no acute distress Eyes: PERRL, conjunctivae normal, anicteric sclerae Neck: normal visual inspection and trachea midline Respiratory: Auscultation: + diminished lung sounds; no rales, no rhonchi and no wheezes Cardiovascular: Rate/Rhythm: regular rate and + irregularly irregular Heart Sounds: normal S1, normal S2 and + murmur (faint systolic murmur) Vessels: no JVD Extremities: no edema Gastrointestinal (Abdomen): normal bowel sounds, soft, nontender, no hepatospl enomegaly Percussion/Palpation: abdomen soft; abdomen nontender Skin: no rashes, warm and dry Neurologic: PERRL, EOMI, accommodation nl, no face palsy, no dysarthria Psychiatric: A+Ox3, euthymic affect Results & Data Vital Signs (Past 12 Hours) Vital Signs Temp Pulse Pulse Resp BP Pulse Ox O2 Del Method 12/07/23 02:56 36.9 C 89 18 113/61 96 Nasal Cannula 12/07/23 02:48 12/06/23 23:16 36.9 C 82 18 123/66 100 Nasal Cannula 12/06/23 21:58 84 12/06/23 20:46 Nasal Cannula 12/06/23 20:10 85 18 98 Nasal Cannula 12/06/23 19:48 36.3 C L 93 H 18 112/65 100 Nasal Cannula O2 Flow Rate O2 Flow Rate 12/07/23 02:56 3 12/07/23 02:48 3 12/06/23 23:16 3 12/06/23 21:58 12/06/23 20:46 3 12/06/23 20:10 3 12/06/23 19:48 3 Laboratory Results Cardiac Enzymes 12/06/23 12/06/23 12/06/23 Range/Units 08:16 12:50 19:46 Troponin I High Sens 20.7 H 17.1 H 19.3 H (0-14) pg/ml CBC 12/07/23 Range/Units 05:41 WBC 12.19 H (4.8-10.8) K/ul RBC 2.68 L (4.20-5.40) M/uL Hgb 7.6 L (12.0-16.0) g/dl Hct 24.5 L (37.0-47.0) % Plt Count 586 H (130-400) K/uL Comprehensive Metabolic Panel 12/06/23 12/07/23 Range/Units 08:16 05:41 Sodium 145 141 (136-145) mmol/L Potassium 4.1 D 4.1 (3.5-5.1) mmol/L Chloride 99 99 (98-107) mmol/L Carbon Dioxide 42 H* 39 H (21-32) mmol/L BUN 15 16 (6-23) mg/dl Creatinine 0.93 0.94 (0.6-1.2) mg/dl Glucose 97 88 (70-99(Fasting)) mg/dl Calcium 9.0 8.7 (8.6-10.3) mg/dl Intake and Output 12/06/23 12/07/23 12/07/23 22:59 06:59 14:59 Intake Total 260 / 985 50 / 985 Output Total Balance 259 / 984 50 / 984 Intake: IV 100 / 150 50 / 150 Doxycycline Hyclate 100 mg In 100 / 100 Dextrose 5% Mini-B 100 ml @ 50 mls/hr IV Q12H [facility] Rx#:[id number] cefTRIAXone SODIUM 2,000 mg In 50 / 50 50 ml @ 100 mls/hr IV Q24H [facility] Rx#:[id number] Oral 160 / 835 Output: # Bowel Movements Other: # Unmeasured Voids 1 Weight 46.4 kg 45.9 kg Weight Measurement Method Standing Scale
[2023-12-07] MEDS: MAGNESIUM OXIDE 400 MG TAB PO ONE (07:38)
[2023-12-07] MEDS: DOPTELET PO SCH (07:40)
--- NOTE | 2023-12-07 08:06 | Electrocardiogram Report ---
Test Reason : Blood Pressure : / mmHG Vent. Rate : 088 BPM Atrial Rate : 093 BPM P-R Int : 000 ms QRS Dur : 094 ms QT Int : 368 ms P-R-T Axes : 000 114 029 degrees QTc Int : 445 ms Atrial fibrillation Incomplete right bundle branch block Abnormal ECG When compared with ECG of 06-DEC-2023 06:08, Incomplete right bundle branch block is now Present Confirmed by Kostas Huynh ([id number]) on 12/07/2023 8:06:26 AM Referred By: REFERRED SELF Confirmed By:Raman Huynh
[2023-12-07] MEDS: METOPROLOL SUCC 50MG EXT REL TAB PO SCH (10:09)
--- NOTE | 2023-12-07 15:47 | Hospitalist Progress Note ---
Date of Service December 07, 2023 Assessment & Plan (1) SOB (shortness of breath): Plan: 88-year-old female with past medical history significant for chronic respiratory failure with hypoxia currently on home oxygen 3 L, COPD, moderate pulmonary hypertension, hypertension constipation, protein-calorie malnutrition, CKD stage III , chronic ITP, history of nonmelanoma skin cancer presents with shortness of breath and rapid A-fib. Patient says she was doing fine in the morning and in the evening suddenly started feeling short of breath. Then she panicked and felt her heart palpitations. Currently on 4 to 5 L she saturating okay. Able to give her history. Denies any chest pain. Has some mild dry cough. Denies fevers. Denies any headache. Vision is okay. Currently no runny nose. No sore throat. Appetite is okay. No difficulty swallowing. No nausea. No sweating. No abdominal pain. States she is constipated but had a bowel movement today. Denies any blood in the stools or black stools. Normal micturition. Ambulates with a walker. Lives with her son. Recently on November 07 patient was admitted to [facility] with shortness of breath and increasing oxygen requirements and nosebleed and black stools and black stools were thought to be from nosebleed and found to have platelets for 5 in setting of stopping her Doptelet for a week due to elevated platelets of 684. And on November 08 patient was transferred from [facility] to [facility] for severe thrombocytopenia as platelet counts are only 5.After discussing with heme-onc was given IV Methylprednisolone 1000 mg IV daily for 3 days. And continued her home Doptelet. Her platelet count improved at time of discharge to 56. Looks like patient was again admitted to [facility] on November 14, 2023 with a dizziness and hypotension. Received fluids. Patient also found to be in rapid A-fib new onset and discharged on metoprolol and Eliquis. She followed up with cardiology on November 27 and her Lasix dose has been decreased from 40 mg to 20 mg because of low blood pressure and dizziness. Leg swelling is improved. Acute on chronic respiratory failure with hypoxia and hypercarbia Likely multifactorial secondary to A-fib RVR, COPD, pneumonia Chronic oxygen dependency--on 3 L at baseline Elevated BNP -ECHO: No regional wall motion abnormality. A-fib RVR during echo. EF 50 to 55%. Right ventricle is mildly dilated. Right ventricular systolic function is mildly reduced. Left atrium is mildly dilated. Mild mitral and tricuspid regurgitation. Pulmonary artery pressure estimated to be 57 mmHg. -Chest CTA:No acute abnormality and in particular no evidence of pulmonary embolus. -- Titrate oxygen to keep saturation 88 to 92% Continue home inhalers, Lasix Nebs as needed A-fib RVR Metoprolol tartrate changed to metoprolol succinate 50 mg twice a day On Eliquis for anticoagulation Replace electrolytes as needed Appreciate cardiology input Monitor Possible sepsis Possible gram-negative pneumonia CTA:No evidence of pulmonary embolus. Bronchiectasis and scattered groundglass opacities versus mosaic attenuation likely represent infectious/inflammatory airways disease. Bio fire negative Normal procalcitonin Empirically on Rocephin, doxycycline Mild troponin elevation Likely demand ischemia secondary to A-fib RVR Echo showed no wall motion abnormality H/o COPD H/o Pulmonary hypertension Continue home inhalers Chronic ITP Continue home Doptelet Monitor platelet count Follows with heme-onc Chronic anemia Baseline hemoglobin around 9 Monitor CBC Anemia workup pending Denies any bleeding issues currently Hypertension Continue metoprolol Monitor Constipation Continue bowel regimen CKD stage III Cr at baseline Monitor renal function Hypokalemia Hypomagnesia Replace and monitor Severe protein calorie malnutrition Dietitian consulted DVT Px: Eliquis Code Status Full Code Admission and Anticipated Discharge Date Admission Date: December 06, 2023 Subjective Patient is seen and examined at bedside Less cough today Saturating well on baseline supplemental oxygen Noted drop in hemoglobin Denies any bleeding issues Denies any significant dyspnea, chest pain, nausea, vomiting, abdominal pain Review of Systems Review of Systems: All systems reviewed & are unremarkable except as noted in Subjective Physical Exam Physical Exam: Physical Exam: Vitals signs as noted above General Appearance:Thin, frail, no apparent distress Head: normocephalic, Atraumatic Eyes: normal inspection, EOMI Neck: supple, Trachea midline Respiratory/Chest: Decreased breath sounds, CTA, No accessory muscle use Cardiovascular: Irregularly irregular, + murmur Abdomen/GI:Soft, Non tender, Bowel sounds present Extremities/Musculoskeletal:normal inspection, + pedal edema Neurologic/Psych:AAOX3, grossly no focal neurological deficits Skin: normal color, warm Results & Data Results & Data Vital Signs (Past 12 Hours) Vital Signs Temp Pulse Pulse Resp BP BP Pulse Ox 12/07/23 12:00 36.9 C 79 20 99/57 L 98 12/07/23 10:08 100 H 98/56 L 12/07/23 08:34 12/07/23 08:32 82 12/07/23 08:00 36.8 C 75 18 120/63 97 12/07/23 07:28 86 18 95 O2 Del Method O2 Flow Rate 12/07/23 12:00 Nasal Cannula 3 12/07/23 10:08 12/07/23 08:34 Nasal Cannula 3 12/07/23 08:32 12/07/23 08:00 Nasal Cannula 3 12/07/23 07:28 Nasal Cannula 3 Laboratory Results Short CBC 12/07/23 Range/Units 05:41 WBC 12.19 H (4.8-10.8) K/ul Hgb 7.6 L (12.0-16.0) g/dl Hct 24.5 L (37.0-47.0) % Plt Count 586 H (130-400) K/uL BMP 12/07/23 05:41 Sodium 141 Potassium 4.1 Chloride 99 Carbon Dioxide 39 H BUN 16 Creatinine 0.94 Glucose 88 Calcium 8.7
[2023-12-08 06:01] LABS: Hematocrit (blood only) 23.1 % (37.0-47.0); Hemoglobin 7.1 g/dl (12.0-16.0); Mean Corpuscular Hemoglobin 28.2 pg (25.0-34.0); Mean Corpuscular Hgb Conc 30.7 g/dL (32.0-36.0); Mean Corpuscular Volume 91.7 fL (80.0-100.0); Mean Platelet Volume 10.1 fL (9.4-12.4); Platelet Count 553 K/uL (130-400); RDW Coefficient of Variation 16.2 % (11.5-14.5); RDW Standard Deviation 54.4 fL (36.4-46.3); Red Blood Count 2.52 M/uL (4.20-5.40); White Blood Count 10.99 K/ul (4.8-10.8)
[2023-12-08 06:21] LABS: BUN Creatinine Ratio 20.7 (10-20); Calcium 8.6 mg/dl (8.6-10.3); Creatinine Clr Calc Pharmacy 30.6 ml/min; Est GFR (African American) 64.4 ml/min; Est GFR (Non-African American) 55.6 ml/min; Magnesium 1.8 mg/dl (1.7-2.4); Potassium 4.1 mmol/L (3.5-5.1)
[2023-12-08 06:41] LABS: Ferritin 23.3 ng/ml (8-388)
[2023-12-08 06:44] LABS: Folate (Folic Acid),Ser orPlas 8.67 ng/ml (>5.38)
--- NOTE | 2023-12-08 07:10 | Cardiology Progress Note ---
Date of Service December 08, 2023 Assessment & Plan (1) Atrial fibrillation with rapid ventricular response: (2) Chronic hypoxic respiratory failure, on home oxygen therapy: Plan Impression: 88 year old female with chronic hypoxic respiratory failure presents with worse stephanie shortness possibly in the setting of COPD exacerbation vs PNA. CXR without pulmonary edema. CT of the chest suggestive of possible PNA. BNP mildly elevated, but within normal limits for age. Volume status appears compensated on exam. AFIB RVR noted on telemetry-- rates improving with titration of BB therapy. Plan: Acute on chronic hypoxic respiratory failure: Symptoms likely multifactorial given underlying lung disease, chronic anemia, and possible PNA Patient not examining hypervolemic. -Will defer PNA treatment/antibiotics to primary service -Continue home dose Lasix 20 mg PO daily -Given underlying co-morbidities recommend maintaining a hgb goal of >10. AFIB RVR: Symptomatic improvement with rate control. -Continue metoprolol succinate 50 mg BID. -Continue dose reduced Eliquis 2.5 mg BID (reduced for age and weight) -Maintain K goal of 4.0 and mag goal of 2.0; replace as needed -Patient may have a difficult time maintaining SR given underlying pulmonary disease, given improvement in symptoms will first proceed with rate control with AFIB. Case discussed with Dr. Doherty. No further cardiac recommendations. Okay for discharge from a cardiac standpoint. Will plan follow-up in our outpatient clinic in the next 4 to 6 weeks I spent a total of 30 minutes on the date of service in preparation, delivery, a nd documentation of the care provided to the patient excluding any time spent in the performance of separately billed services. LOLITA Begum Department of Cardiology, [facility] This chart was completed in part utilizing Speech Voice Recognition Software. Grammatical errors, random word insertions, pronoun errors, and incomplete sentences are an occasional consequence of this system due to software limitations, ambient noise, and hardware issues. Any formal questions or concerns about the content, text, or information contained within the body of this dictation should be directly addressed to the provider for clarification. Admission and Anticipated Discharge Date Admission Date: December 06, 2023 Supervising Physician Co-Signing Physician Notes Attending attestation: Case reviewed with the advanced practitioner. I have personally performed a history and physical examination on the patient. I have reviewed the advanced practitioner's documentation on the date of service referenced in note, and I agree with, and take responsibility for the plan of care. -Anemia noted, agree with iron sucrose. -If ongoing difficulty with hemoglobin, risks of anemia may outweigh prophylactic benefit of Eliquis. -Continue Eliquis for now. Patient cardiology to follow peripherally. Call with questions or concerns. I spent a total of 20 minutes coordinating, documenting, and providing care for this patient excluding time spent in the performance of separately billed services or time spent by another provider. Vignesh Doherty, Subjective 88 year old female with chronic hypoxic respiratory failure presents with worsening shortness possibly in the setting of COPD exacerbation vs PNA. CXR without pulmonary edema. CT of the chest suggestive of possible PNA. AFIB RVR noted on telemetry- rates 100-120s; fairly new diagnosis (10/2023) 12/06/2023: Tachycardic rates in A-fib 100s to 120s, metoprolol increased to 25 mg 3 times daily. Anticoagulated with dose reduced Eliquis 2.5 mg twice daily Echo: Low normal LVEF in the range of 50 to 55%, left atrium mildly dilated, mild MR, mild TR, moderately elevated pulmonary systolic pressure of 57 mmHg, relatively unchanged compared to the recent outpatient echocardiogram performed 11/01/2023 within the [facility] system 12/07/2023: Metoprolol tartrate discontinued in favor of metoprolol succinate 50 mg twice daily Eliquis 2.5 mg twice daily continue 12/08/2023: Telemetry: AFIB 80s to 90 Upon entrance into the room patient resting in bed receiving IV iron. No acute concerns overnight. Eager for discharge. No longer feels chest tightness of palpitations. Breathing at baseline. No dizziness, syncope or near syncope. No orthopnea, PND, or increased lower extremity edema. No fever, chills, cough, h ematochezia, melena, or hemoptysis. Review of Systems Review of Systems: All systems reviewed & are unremarkable except as noted in HPI & below Physical Exam Constitutional: WD/WN, vitals as above + thin; no acute distress Eyes: PERRL, conjunctivae normal, anicteric sclerae Neck: normal visual inspection and trachea midline Respiratory: Auscultation: + diminished lung sounds; no rales, no rhonchi and no wheezes Cardiovascular: Rate/Rhythm: regular rate and + irregularly irregular Heart Sounds: normal S1, normal S2 and + murmur (faint systolic murmur) Vessels: no JVD Extremities: no edema Gastrointestinal (Abdomen): normal bowel sounds, soft, nontender, no hepatosplenomegaly Skin: no rashes, warm and dry Neurologic: PERRL, EOMI, accommodation nl, no face palsy, no dysarthria Psychiatric: A+Ox3, euthymic affect Results & Data Vital Signs (Past 12 Hours) Vital Signs Temp Pulse Pulse Resp BP BP Pulse Ox 12/08/23 03:32 37 C 86 16 129/62 99 12/08/23 00:00 87 12/07/23 23:10 36.8 C 86 22 110/77 97 12/07/23 20:49 108 H 119/70 12/07/23 20:00 12/07/23 19:30 36.5 C 94 H 22 102/64 96 O2 Del Method O2 Flow Rate 12/08/23 03:32 Nasal Cannula 3 12/08/23 00:00 12/07/23 23:10 Nasal Cannula 2 12/07/23 20:49 12/07/23 20:00 Nasal Cannula 3 12/07/23 19:30 Nasal Cannula 2 Laboratory Results CBC 12/08/23 Range/Units 05:27 WBC 10.99 H (4.8-10.8) K/ul RBC 2.52 L (4.20-5.40) M/uL Hgb 7.1 L (12.0-16.0) g/dl Hct 23.1 L (37.0-47.0) % Plt Count 553 H (130-400) K/uL Comprehensive Metabolic Panel 12/08/23 Range/Units 05:27 Sodium 139 (136-145) mmol/L Potassium 4.1 (3.5-5.1) mmol/L Chloride 97 L (98-107) mmol/L Carbon Dioxide 39 H (21-32) mmol/L BUN 19 (6-23) mg/dl Creatinine 0.92 (0.6-1.2) mg/dl Glucose 86 (70-99(Fasting)) mg/dl Calcium 8.6 (8.6-10.3) mg/dl Intake and Output 12/07/23 12/08/23 12/08/23 22:59 06:59 14:59 Intake Total 50 / 50 Balance 50 / 50 Intake: IV 50 / 50 cefTRIAXone SODIUM 2,000 mg In 50 / 50 50 ml @ 100 mls/hr IV Q24H [facility] Rx#:[id number] Other: # Unmeasured Voids 2 3 Weight 45.4 kg Weight Measurement Method Built in [facility]
[2023-12-08] MEDS ORDERED: SODIUM CHLORIDE 0.9% 250 ML IV PRN (07:32)
[2023-12-08] MEDS: IRON SUCROSE 300 MG in SODIUM CHLORIDE 0.9% 250 ML IV ONE (08:25)
--- NOTE | 2023-12-08 10:38 | Electrocardiogram Report ---
Test Reason : Blood Pressure : / mmHG Vent. Rate : 088 BPM Atrial Rate : 079 BPM P-R Int : 000 ms QRS Dur : 086 ms QT Int : 374 ms P-R-T Axes : 000 051 041 degrees QTc Int : 452 ms Poor data quality, interpretation may be adversely affected Atrial fibrillation Abnormal ECG When compared with ECG of 07-DEC-2023 05:49, Incomplete right bundle branch block is no longer Present Criteria for Anterior infarct are no longer Present Confirmed by Kostas Huynh ([id number]) on 12/08/2023 10:38:41 AM Referred By: REFERRED SELF Confirmed By:Raman Huynh
--- NOTE | 2023-12-08 12:24 | CT Scan Report ---
ABDOMEN AND PELVIS CT WITHOUT CONTRAST CT DOSE: 385.09 mGy.cm HISTORY: Acute anemia with generalized abdominal pain. Anemia, Rule out retroperitonaeal Bleed TECHNIQUE: Multiaxial CT images of the abdomen and pelvis were performed without contrast. A dose lo wering technique was utilized adhering to the principles of ALARA. COMPARISON STUDY: CTA chest 12/06/2023. FINDINGS: Limited exam without the use of contrast. Generalized body wall edema. Breast calcification s. Cardiomegaly with coronary arterial calcifications. Trace pleural effusions. Decreased attenuation of the cardiac blood pool, compatible with anemia. Emphysema with mild patchy bibasilar ground-glass densities is again noted. Mild mosaic attenuation. There are a few scattered indeterminate hypodense splenic lesions measuring up to 10 mm. The spleen i s normal in size. There are a few indeterminate hypodense lesions of the liver measuring up to 1.3 cm within the inferior right hepatic lobe on image 25 series 2. Cholecystectomy. Unremarkable pancreas and adrenal glands. There are a few cysts of the kidneys measuring up to 2.7 cm on the left. No renal or ureteral calculi or hydronephrosis. Nonspecific urinary bladder wall thickening. Hyperdense mater ial is noted within the vaginal introitus. Atherosclerosis of the aorta. No retroperitoneal hemorrhage. Moderate fecal retention. No bowel obstruction or bowel wall thickenin g. Colonic diverticulosis. No CT evidence of acute appendicitis. Degenerative changes of the spine, p mariam and hips. IMPRESSION: 1. Mild patchy bibasilar and ground-glass densities are redemonstrated, likely infectious or inflamma tory. 2. Decreased attenuation of the cardiac blood pool, compatible with anemia. 3. No retroperitoneal hemorrhage. 4. No bowel obstruction or bowel wall thickening. 5. Additional findings as above. ACT 112: Negative or not required by law. The above report was generated using voice recognition software. It may contain grammatical, syntax o r spelling errors. Dictated: 12/08/2023 10:21 AM Transcribed: 12/08/2023 11:23 AM Markie [id number] [email or web address] Electronically signed by: Chucky Gtz M.D. 12/08/2023 12:23 PM
--- NOTE | 2023-12-08 16:43 | Hospitalist Progress Note ---
Date of Service December 08, 2023 Assessment & Plan (1) SOB (shortness of breath): Plan: 88-year-old female with past medical history significant for chronic respiratory failure with hypoxia currently on home oxygen 3 L, COPD, moderate pulmonary hypertension, hypertension constipation, protein-calorie malnutrition, CKD stage III , chronic ITP, history of nonmelanoma skin cancer presents with shortness of breath and rapid A-fib. Patient says she was doing fine in the morning and in the evening suddenly started feeling short of breath. Then she panicked and felt her heart palpitations. Currently on 4 to 5 L she saturating okay. Able to give her history. Denies any chest pain. Has some mild dry cough. Denies fevers. Denies any headache. Vision is okay. Currently no runny nose. No sore throat. Appetite is okay. No difficulty swallowing. No nausea. No sweating. No abdominal pain. States she is constipated but had a bowel movement today. Denies any blood in the stools or black stools. Normal micturition. Ambulates with a walker. Lives with her son. Recently on November 07 patient was admitted to [facility] with shortness of breath and increasing oxygen requirements and nosebleed and black stools and black stools were thought to be from nosebleed and found to have platelets for 5 in setting of stopping her Doptelet for a week due to elevated platelets of 684. And on November 08 patient was transferred from [facility] to [facility] for severe thrombocytopenia as platelet counts are only 5.After discussing with heme-onc was given IV Methylprednisolone 1000 mg IV daily for 3 days. And continued her home Doptelet. Her platelet count improved at time of discharge to 56. Looks like patient was again admitted to [facility] on November 14, 2023 with a dizziness and hypotension. Received fluids. Patient also found to be in rapid A-fib new onset and discharged on metoprolol and Eliquis. She followed up with cardiology on November 27 and her Lasix dose has been decreased from 40 mg to 20 mg because of low blood pressure and dizziness. Leg swelling is improved. Acute on chronic respiratory failure with hypoxia and hypercarbia Likely multifactorial secondary to A-fib RVR, COPD, pneumonia Chronic oxygen dependency--on 3 L at baseline Elevated BNP -ECHO: No regional wall motion abnormality. A-fib RVR during echo. EF 50 to 55%. Right ventricle is mildly dilated. Right ventricular systolic function is mildly reduced. Left atrium is mildly dilated. Mild mitral and tricuspid regurgitation. Pulmonary artery pressure estimated to be 57 mmHg. -Chest CTA:No acute abnormality and in particular no evidence of pulmonary embolus. -- Titrate oxygen to keep saturation 88 to 92% Continue home inhalers, Lasix Nebs as needed Continue current management A-fib RVR Metoprolol tartrate changed to metoprolol succinate 50 mg twice a day On Eliquis for anticoagulation Replace electrolytes as needed Appreciate cardiology input Monitor Tolerating current metoprolol dose Possible sepsis Possible gram-negative pneumonia CTA:No evidence of pulmonary embolus. Bronchiectasis and scattered groundglass opacities versus mosaic attenuation likely represent infectious/inflammatory airways disease. Bio fire negative Normal procalcitonin Empirically on Rocephin, doxycycline Transition to p.o. antibiotics as able Mild troponin elevation Likely demand ischemia secondary to A-fib RVR Echo showed no wall motion abnormality H/o COPD H/o Pulmonary hypertension Continue home inhalers Chronic ITP Continue home Doptelet Monitor platelet count Follows with heme-onc Chronic anemia Iron deficiency anemia Baseline hemoglobin around 9 Monitor CBC FOBT pending Denies any bleeding issues currently Hb 7.1 today Monitor H&H and transfuse as needed Given IV Venofer today Discussed with hematology Dr. Choi on 12/08/2023: Advised to continue Doptelet and transfuse as needed Hypertension Continue metoprolol Monitor Constipation Continue bowel regimen CKD stage III Cr at baseline Monitor renal function Hypokalemia Hypomagnesia Replace and monitor Severe protein calorie malnutrition Dietitian consulted DVT Px: Eliquis Code Status Full Code Admission and Anticipated Discharge Date Admission Date: December 06, 2023 Subjective Patient is seen and examined at bedside Cough, dyspnea continues to improve Denies any obvious bleeding issues Discussed with hematology today Denies any chest pain, nausea, vomiting, abdominal pain Review of Systems Review of Systems: All systems reviewed & are unremarkable except as noted in Subjective Physical Exam Physical Exam: Physical Exam: Vitals signs as noted above General Appearance:Thin, frail, no apparent distress Head: normocephalic, Atraumatic Eyes: normal inspection, EOMI Neck: supple, Trachea midline Respiratory/Chest: Decreased breath sounds, CTA, No accessory muscle use Cardiovascular: Irregularly irregular, + murmur Abdomen/GI:Soft, Non tender, Bowel sounds present Extremities/Musculoskeletal:normal inspection, + pedal edema Neurologic/Psych:AAOX3, grossly no focal neurological deficits Skin: normal color, warm Results & Data Results & Data Vital Signs (Past 12 Hours) Vital Signs Temp Pulse Pulse Resp BP BP Pulse Ox 12/08/23 15:34 78 12/08/23 11:00 36.5 C 90 16 120/63 125/74 95 12/08/23 07:45 87 12/08/23 07:45 12/08/23 07:38 36.4 C L 89 18 126/68 95 O2 Del Method O2 Flow Rate 12/08/23 15:34 12/08/23 11:00 Nasal Cannula 3 12/08/23 07:45 12/08/23 07:45 Nasal Cannula 3 12/08/23 07:38 Nasal Cannula 3 Laboratory Results Short CBC 12/08/23 Range/Units 05:27 WBC 10.99 H (4.8-10.8) K/ul Hgb 7.1 L (12.0-16.0) g/dl Hct 23.1 L (37.0-47.0) % Plt Count 553 H (130-400) K/uL BMP 12/08/23 05:27 Sodium 139 Potassium 4.1 Chloride 97 L Carbon Dioxide 39 H BUN 19 Creatinine 0.92 Glucose 86 Calcium 8.6
[2023-12-08 20:57] LABS: Hematocrit (blood only) 27.6 % (37.0-47.0); Hemoglobin 8.5 g/dl (12.0-16.0)
[2023-12-09 07:00] LABS: Calcium 8.9 mg/dl (8.6-10.3); Potassium 4.3 mmol/L (3.5-5.1)
[2023-12-09 07:01] LABS: Hematocrit (blood only) 23.9 % (37.0-47.0); Hemoglobin 7.4 g/dl (12.0-16.0); Mean Corpuscular Hemoglobin 28.2 pg (25.0-34.0); Mean Corpuscular Volume 91.2 fL (80.0-100.0); Mean Platelet Volume 10.1 fL (9.4-12.4); Platelet Count 572 K/uL (130-400); RDW Coefficient of Variation 16.1 % (11.5-14.5); RDW Standard Deviation 54.4 fL (36.4-46.3); Red Blood Count 2.62 M/uL (4.20-5.40); White Blood Count 10.36 K/ul (4.8-10.8)
[2023-12-09 07:05] LABS: Creatinine Clr Calc Pharmacy 32.9 ml/min; Est GFR (African American) 71.9 ml/min; Est GFR (Non-African American) 62.1 ml/min
[2023-12-09] MEDS: IRON SUCROSE 300 MG in SODIUM CHLORIDE 0.9% 250 ML IV SCH (08:21)
[2023-12-09 12:45] LABS: Hematocrit (blood only) 25.6 % (37.0-47.0); Hemoglobin 7.8 g/dl (12.0-16.0)
--- NOTE | 2023-12-09 12:46 | Hospitalist Progress Note ---
Date of Service December 09, 2023 Assessment & Plan (1) SOB (shortness of breath): Plan: 88-year-old female with past medical history significant for chronic respiratory failure with hypoxia currently on home oxygen 3 L, COPD, moderate pulmonary hypertension, hypertension constipation, protein-calorie malnutrition, CKD stage III , chronic ITP, history of nonmelanoma skin cancer presents with shortness of breath and rapid A-fib. Patient says she was doing fine in the morning and in the evening suddenly started feeling short of breath. Then she panicked and felt her heart palpitations. Currently on 4 to 5 L she saturating okay. Able to give her history. Denies any chest pain. Has some mild dry cough. Denies fevers. Denies any headache. Vision is okay. Currently no runny nose. No sore throat. Appetite is okay. No difficulty swallowing. No nausea. No sweating. No abdominal pain. States she is constipated but had a bowel movement today. Denies any blood in the stools or black stools. Normal micturition. Ambulates with a walker. Lives with her son. Recently on November 07 patient was admitted to [facility] with shortness of breath and increasing oxygen requirements and nosebleed and black stools and black stools were thought to be from nosebleed and found to have platelets for 5 in setting of stopping her Doptelet for a week due to elevated platelets of 684. And on November 08 patient was transferred from [facility] to [facility] for severe thrombocytopenia as platelet counts are only 5.After discussing with heme-onc was given IV Methylprednisolone 1000 mg IV daily for 3 days. And continued her home Doptelet. Her platelet count improved at time of discharge to 56. Looks like patient was again admitted to [facility] on November 14, 2023 with a dizziness and hypotension. Received fluids. Patient also found to be in rapid A-fib new onset and discharged on metoprolol and Eliquis. She followed up with cardiology on November 27 and her Lasix dose has been decreased from 40 mg to 20 mg because of low blood pressure and dizziness. Leg swelling is improved. Acute on chronic respiratory failure with hypoxia and hypercarbia Likely multifactorial secondary to A-fib RVR, COPD, pneumonia Chronic oxygen dependency--on 3 L at baseline Elevated BNP -ECHO: No regional wall motion abnormality. A-fib RVR during echo. EF 50 to 55%. Right ventricle is mildly dilated. Right ventricular systolic function is mildly reduced. Left atrium is mildly dilated. Mild mitral and tricuspid regurgitation. Pulmonary artery pressure estimated to be 57 mmHg. -Chest CTA:No acute abnormality and in particular no evidence of pulmonary embolus. -- Titrate oxygen to keep saturation 88 to 92% Continue home inhalers, Lasix Nebs as needed Plan to discharge home today A-fib RVR Metoprolol tartrate changed to metoprolol succinate 50 mg twice a day On Eliquis for anticoagulation Replace electrolytes as needed Appreciate cardiology input Monitor Tolerating current metoprolol dose Needs follow-up with cardiology on discharge Possible sepsis Possible gram-negative pneumonia CTA:No evidence of pulmonary embolus. Bronchiectasis and scattered groundglass opacities versus mosaic attenuation likely represent infectious/inflammatory airways disease. Bio fire negative Normal procalcitonin Empirically on Rocephin, doxycycline Transition to p.o. antibiotics on discharge Mild troponin elevation Likely demand ischemia secondary to A-fib RVR Echo showed no wall motion abnormality H/o COPD H/o Pulmonary hypertension Continue home inhalers Chronic ITP Continue home Doptelet Monitor platelet count Follows with heme-onc Chronic anemia Iron deficiency anemia Baseline hemoglobin around 9 Monitor CBC FOBT pending Denies any bleeding issues currently Hb 7.8 today Monitor H&H and transfuse as needed Given IV Venofer today>> discharged on iron supplements Discussed with hematology Dr. Choi on 12/08/2023: Advised to continue Doptelet and transfuse as needed Advised to follow-up with Dr. Choi on discharge with repeat blood work Hypertension Continue metoprolol Monitor Constipation Continue bowel regimen CKD stage III Cr at baseline Monitor renal function Hypokalemia Hypomagnesia Replace and monitor Severe protein calorie malnutrition Dietitian consulted DVT Px: Eliquis Code Status Full Code Disposition Home Admission and Anticipated Discharge Date Admission Date: December 06, 2023 Subjective Patient is seen and examined at bedside Sitting in chair during my encounter No new complaints Hemoglobin stable Received IV iron Denies any bleeding issues No significant cough today Denies any chest pain, nausea, vomiting, dyspnea, abdominal pain Updated patient's son over the phone Review of Systems Review of Systems: All systems reviewed & are unremarkable except as noted in Subjective Physical Exam Physical Exam: Physical Exam: Vitals signs as noted above General Appearance:Thin, frail, no apparent distress Head: normocephalic, Atraumatic Eyes: normal inspection, EOMI Neck: supple, Trachea midline Respiratory/Chest: Decreased breath sounds, CTA, No accessory muscle use Cardiovascular: Irregularly irregular, + murmur Abdomen/GI:Soft, Non tender, Bowel sounds present Extremities/Musculoskeletal:normal inspection, + pedal edema Neurologic/Psych:AAOX3, grossly no focal neurological deficits Skin: normal color, warm Results & Data Results & Data Vital Signs (Past 12 Hours) Vital Signs Temp Pulse Pulse Resp BP Pulse Ox O2 Del Method 12/09/23 11:23 36.8 C 89 18 124/66 93 Nasal Cannula 12/09/23 07:37 36.7 C 97 H 20 108/62 91 Nasal Cannula 12/09/23 07:30 81 12/09/23 07:30 Nasal Cannula 12/09/23 03:06 36.8 C 77 17 115/49 L 97 Nasal Cannula O2 Flow Rate 12/09/23 11:23 3 12/09/23 07:37 3 12/09/23 07:30 12/09/23 07:30 3 12/09/23 03:06 3 Laboratory Results Short CBC 12/08/23 12/09/23 Range/Units 20:25 05:34 WBC 10.36 (4.8-10.8) K/ul Hgb 8.5 L 7.4 L (12.0-16.0) g/dl Hct 27.6 L 23.9 L (37.0-47.0) % Plt Count 572 H (130-400) K/uL BMP 12/09/23 05:34 Sodium 141 Potassium 4.3 Chloride 99 Carbon Dioxide 38 H BUN 21 Creatinine 0.84 Glucose 76 Calcium 8.9
--- NOTE | 2023-12-09 13:12 | Discharge Summary ---
Date of Service December 09, 2023 Admission HPI Per Admitting Provider 88-year-old female with past medical history significant for chronic respiratory failure with hypoxia currently on home oxygen 3 L, COPD, moderate pulmonary hypertension, hypertension constipation, protein-calorie malnutrition, CKD stage III , chronic ITP, history of nonmelanoma skin cancer presents with shortness of breath and rapid A-fib. Patient says she was doing fine in the morning and in the evening suddenly started feeling short of breath. Then she panicked and felt her heart palpitations. Currently on 4 to 5 L she saturating okay. Able to give her history. Denies any chest pain. Has some mild dry cough. Denies fevers. Denies any headache. Vision is okay. Currently no runny nose. No sore throat. Appetite is okay. No difficulty swallowing. No nausea. No sweating. No abdominal pain. States she is constipated but had a bowel movement today. Denies any blood in the stools or black stools. Normal micturition. Ambulates with a walker. Lives with her son. Recently on November 07 patient was admitted to [facility] with shortness of breath and increasing oxygen requirements and nosebleed and black stools and black stools were thought to be from nosebleed and found to have platelets for 5 in setting of stopping her Doptelet for a week due to elevated platelets of 684. And on November 08 patient was transferred from [facility] to [facility] for severe thrombocytopenia as platelet counts are only 5.After discussing with heme-onc was given IV Methylprednisolone 1000 mg IV daily for 3 days. And continued her home Doptelet. Her platelet count improved at time of discharge to 56. Looks like patient was again admitted to [facility] on November 14, 2023 with a dizziness and hypotension. Received fluids. Patient also found to be in rapid A-fib new onset and discharged on metoprolol and Eliquis. She followed up with cardiology on November 27 and her Lasix dose has been decreased from 40 mg to 20 mg because of low blood pressure and dizziness. Leg swelling is improved. 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 Excision of the scalp/face subcutaneous tumor Family history. . Currently lives with her son. Quit smoking in 1978. Smoked 0.3 packs a day for 5 years. No alcohol use. No drug use. Family history. No family history on file Principal Diagnosis Acute on chronic respiratory failure with hypoxia and hypercarbia A-fib RVR Pneumonia Iron deficiency anemia Discharge Exam General- Not in distress. Thin and frail. Head- atraumatic Eyes- PERRL. ENT- oropharynx clear Neck- supple, no JVD. Lungs- clear to auscultation mild bilateral coarse crackles, no wheezing Heart- irregular rhythm; tachycardia no murmur, no gallop. Abdomen- normal bowel sounds, soft, nontender, no distension Extremities- trace pretibial edema, no erythema seen. Neuro- alert, oriented ; PERRL, no facial palsy; no dysarthria; moves extremities. Discharge Data Allergies Allergy/AdvReac Type Severity Reaction Status Date / Time lisinopril AdvReac Intermediate Gastrointestinal Verified 12/05/23 23:46 Upset Consultations 12/05/23 23:35 ED Decision to Admit Stat 12/06/23 08:00 Consult Cardiology Routine Procedures Performed Laboratory Results WBC 10.36 K/ul (4.8-10.8) 12/09/23 05:34 RBC 2.62 M/uL (4.20-5.40) L 12/09/23 05:34 Hgb 7.8 g/dl (12.0-16.0) L 12/09/23 12:18 POC Hgb 9.2 g/dl (12.0-16.0) L 12/05/23 23:02 Hct 25.6 % (37.0-47.0) L 12/09/23 12:18 POC Hct 27 % (37-47) L 12/05/23 23:02 MCV 91.2 fL (80.0-100.0) 12/09/23 05:34 MCH 28.2 pg (25.0-34.0) 12/09/23 05:34 MCHC 31.0 g/dL (32.0-36.0) L 12/09/23 05:34 RDW Std Deviation 54.4 fL (36.4-46.3) H 12/09/23 05:34 RDW Coeff of Dwaine 16.1 % (11.5-14.5) H 12/09/23 05:34 Plt Count 572 K/uL (130-400) H 12/09/23 05:34 MPV 10.1 fL (9.4-12.4) 12/09/23 05:34 Immature Gran % (Auto) 0.9 % 12/06/23 08:16 Neut % (Auto) 77.6 % 12/06/23 08:16 Lymph % (Auto) 14.0 % 12/06/23 08:16 [place]linger % (Auto) 6.6 % 12/06/23 08:16 Eos % (Auto) 0.5 % 12/06/23 08:16 Baso % (Auto) 0.4 % 12/06/23 08:16 Neut # (Auto) 13.15 K/uL (1.40-6.50) H 12/06/23 08:16 Lymph # (Auto) 2.37 K/uL (1.20-3.40) 12/06/23 08:16 [place]linger # (Auto) 1.11 K/uL (0.11-0.59) H 12/06/23 08:16 Eos # (Auto) 0.08 K/uL (0.00-0.50) 12/06/23 08:16 Baso # (Auto) 0.07 K/uL (0.00-0.20) 12/06/23 08:16 Immature Gran # (Auto) 0.15 K/uL (0.01-0.20) 12/06/23 08:16 PT 13.0 Seconds (9.0-12.0) H 12/05/23 23:00 INR 1.2 (0.9-1.1) H 12/05/23 23:00 APTT 31 Seconds (21-31) 12/05/23 23:00 PTT Ratio 1.2 12/05/23 23:00 VBG pH 7.39 (7.36-7.41) 12/05/23 23:00 VBG pCO2 64 mmHg (38-50) H 12/05/23 23:00 VBG pO2 23 mmHg 12/05/23 23:00 VBG HCO3 39 mmol/L 12/05/23 23:00 VBG O2 Saturation < 60.0 % 12/05/23 23:00 VBG Base Excess 11.0 mEq/L 12/05/23 23:00 POC Sodium 141 mmol/L (135-144) 12/05/23 23:02 Sodium 141 mmol/L (136-145) 12/09/23 05:34 POC Potassium 3.4 mmol/L (3.3-5.0) 12/05/23 23:02 Potassium 4.3 mmol/L (3.5-5.1) 12/09/23 05:34 POC Chloride 96 mmol/L (101-112) L 12/05/23 23:02 Chloride 99 mmol/L (98-107) 12/09/23 05:34 Carbon Dioxide 38 mmol/L (21-32) H 12/09/23 05:34 POC Total CO2 35 mmol/L (24-31) H 12/05/23 23:02 Anion Gap 4 (3-11) 12/09/23 05:34 POC Anion Gap 14.0 mmol/L (16-25) L 12/05/23 23:02 POC BUN 15 mg/dl (7-18) 12/05/23 23:02 BUN 21 mg/dl (6-23) 12/09/23 05:34 Creatinine 0.84 mg/dl (0.6-1.2) 12/09/23 05:34 POC Creatinine 1.0 mg/dl (0.6-1.3) 12/05/23 23:02 Est Cr Clr Drug Dosing 32.9 ml/min 12/09/23 05:34 Est GFR ( Amer) 71.9 ml/min 12/09/23 05:34 Est GFR (Non-Af Amer) 62.1 ml/min 12/09/23 05:34 BUN/Creatinine Ratio 25.0 (10-20) H 12/09/23 05:34 Glucose 76 mg/dl (70-99(Fasting)) 12/09/23 05:34 POC Glucose (other) 120 mg/dl (70-99) H 12/05/23 23:02 Calcium 8.9 mg/dl (8.6-10.3) 12/09/23 05:34 POC Ioniz Calcium [place] 1.14 mmol/l (1.12-1.32) 12/05/23 23:02 Magnesium 1.8 mg/dl (1.7-2.4) 12/08/23 05:27 Iron 26 mcg/dl (35-150) L 12/08/23 05:27 TIBC 226 mcg/dl (250-450) L 12/08/23 05:27 Unsaturated IBC 200 mcg/dl (155-355) 12/08/23 05:27 Transferrin % Sat 12 % (15-50) L 12/08/23 05:27 Ferritin 23.3 ng/ml (8-388) 12/08/23 05:27 Total Bilirubin 0.8 mg/dl (0.2-1.0) 12/05/23 23:00 AST 14 U/L (13-39) 12/05/23 23:00 ALT 7 U/L (7-52) 12/05/23 23:00 Alkaline Phosphatase 53 U/L (34-104) 12/05/23 23:00 Troponin I High Sens 19.3 pg/ml (0-14) H 12/06/23 19:46 B-Natriuretic Peptide 828 pg/ml (0-100) H 12/05/23 23:00 Total Protein 6.0 gm/dl (6.0-8.3) 12/05/23 23:00 Albumin 3.3 gm/dl (3.4-5.0) L 12/05/23 23:00 Globulin 2.7 gm/dl (2.5-4.0) 12/05/23 23:00 Albumin/Globulin Ratio 1.2 (0.9-2) 12/05/23 23:00 Vitamin B12 1173 pg/ml (180-914) H 12/08/23 05:27 Folate 8.67 ng/ml (>5.38) 12/08/23 05:27 Procalcitonin 0.06 ng/ml (0-0.5) 12/06/23 08:16 Urine Color Yellow 12/06/23 01:22 Urine Appearance Clear (Clear) 12/06/23 01:22 Urine pH 7.0 (4.5-7.5) 12/06/23 01:22 Ur Specific [place] 1.008 (1.000-1.030) 12/06/23 01:22 Urine Protein Negative (Negative) 12/06/23 01:22 Urine Glucose (UA) Negative (Negative) 12/06/23 01:22 Urine Ketones Negative (Negative) 12/06/23 01:22 Urine Blood Negative (Negative) 12/06/23 01:22 Urine Nitrite Negative (Negative) 12/06/23 01:22 Urine Bilirubin Negative (Negative) 12/06/23 01:22 Urine Urobilinogen Negative (Negative) 12/06/23 01:22 Ur Leukocyte Esterase Trace (Negative) H 12/06/23 01:22 Urine WBC (Auto) 0-5 /hpf (0-5) 12/06/23 01:22 Urine RBC (Auto) 0-2 /hpf (0-2) 12/06/23 01:22 U Hyaline Cast (Auto) 3-5 /lpf (0-2) H 12/06/23 01:22 U Epithel Cells (Auto) 3-5 /hpf (0-2) H 12/06/23 01:22 Urine Bacteria (Auto) None Seen (None Seen) 12/06/23 01:22 Adenovirus (PCR) Not Detected (NotDetected) 12/05/23 23:35 B. pertussis DNA (PCR) Not Detected (NotDetected) 12/05/23 23:35 B.parapertussis DNA PCR Not Detected (NotDetected) 12/05/23 23:35 C. pneumoniae DNA (PCR) Not Detected (NotDetected) 12/05/23 23:35 Coronavirus OC43 (PCR) Not Detected (NotDetected) 12/05/23 23:35 Coronavirus HKU1 (PCR) Not Detected (NotDetected) 12/05/23 23:35 Coronavirus 229E (PCR) Not Detected (NotDetected) 12/05/23 23:35 SARS-CoV-2 (PCR) Not Detected (NotDetected) 12/05/23 23:35 Coronavirus NL63 (PCR) Not Detected (NotDetected) 12/05/23 23:35 Human Metapneumovir PCR Not Detected (NotDetected) 12/05/23 23:35 Influenza Type A (PCR) Not Detected (NotDetected) 12/05/23 23:35 Influenza Type B (PCR) Not Detected (NotDetected) 12/05/23 23:35 M. pneumoniae (PCR) Not Detected (NotDetected) 12/05/23 23:35 Parainfluenza 1 (PCR) Not Detected (NotDetected) 12/05/23 23:35 Parainfluenza 2 (PCR) Not Detected (NotDetected) 12/05/23 23:35 Parainfluenza 3 (PCR) Not Detected (NotDetected) 12/05/23 23:35 Parainfluenza 4 (PCR) Not Detected (NotDetected) 12/05/23 23:35 RSV (PCR) Not Detected (NotDetected) 12/05/23 23:35 Entero/Rhino (PCR) Not Detected (NotDetected) 12/05/23 23:35 Blood Type A Positive 12/08/23 07:51 Blood Type Recheck A Positive 12/08/23 05:27 Antibody Screen NEGATIVE 12/08/23 07:51 Crossmatch See Detail 12/08/23 07:51 Impressions Chest X-Ray 12/05/23 22:21 XR chest 1V portable CLINICAL HISTORY: Dyspnea TECHNIQUE: Single frontal radiograph of the chest was obtained. Comparison: Comparison is made to chest radiograph 06/12/2023 FINDINGS: No lines and tubes are seen. Cardiomegaly is noted. Bronchiectasis is seen without evidence of airspace opacities. No evidence of pleural effusion or pneumothorax. IMPRESSION: No acute chest disease. ACT 112: Negative or not required by law. Electronically signed by: Chaim Balbuena M.D. 12/06/2023 8:10 AM Chest CTA 12/06/23 00:39 CT angio chest PE protocol CLINICAL HISTORY: PE TECHNIQUE: Multidetector row helical CT of the chest was performed with angiographic protocol. Coronal and sagittal reformations were obtained. Coronal and sagittal MIPS were obtained from the axial data set and were submitted for review. Automated dose lowering techniques and/or adjustment according to patient size were utilized for this exam. CT DOSE: 246.68 mGy.cm Comparison: Comparison is made to chest radiograph 12/05/2023 FINDINGS: Lungs and pleura: Bronchial wall thickening mosaic attenuation are seen. Heart and pericardium: Cardiomegaly is seen with biatrial enlargement. Vessels: The pulmonary trunk is enlarged measuring 34 mm. No evidence of pulmonary embolus in the lobar or segmental branches although evaluation is limited by patient motion. Mediastinum and lev: Unremarkable. Chest wall and lower neck: Unremarkable. Abdomen: Unremarkable. Bones: Degenerative changes in the thoracic spine. IMPRESSION: No acute abnormality and in particular no evidence of pulmonary embolus. ACT 112: Negative or not required by law. Electronically signed by: Chaim Balbuena M.D. 12/06/2023 7:33 AM Abdomen/Pelvis CT 12/08/23 08:[address] WITHOUT CONTRAST CT DOSE: 385.09 mGy.cm HISTORY: Acute anemia with generalized abdominal pain. Anemia, Rule out retroperitonaeal Bleed TECHNIQUE: Multiaxial CT images of the abdomen and pelvis were performed without contrast. A dose lowering technique was utilized adhering to the principles of ALARA. COMPARISON STUDY: CTA chest 12/06/2023. FINDINGS: Limited exam without the use of contrast. Generalized body wall edema. Breast calcifications. Cardiomegaly with coronary arterial calcifications. Trace pleural effusions. Decreased attenuation of the cardiac blood pool, compatible with anemia. Emphysema with mild patchy bibasilar ground-glass densities is again noted. Mild mosaic attenuation. There are a few scattered indeterminate hypodense splenic lesions measuring up to 10 mm. The spleen is normal in size. There are a few indeterminate hypodense lesions of the liver measuring up to 1.3 cm within the inferior right hepatic lobe on image 25 series 2. Cholecystectomy. Unremarkable pancreas and adrenal glands. There are a few cysts of the kidneys measuring up to 2.7 cm on the left. No renal or ureteral calculi or hydronephrosis. Nonspecific urinary bladder wall thickening. Hyperdense material is noted within the vaginal introitus. Atherosclerosis of the aorta. No retroperitoneal hemorrhage. Moderate fecal retention. No bowel obstruction or bowel wall thickening. Colonic diverticulosis. No CT evidence of acute appendicitis. Degenerative changes of the spine, pelvis and hips. IMPRESSION: 1. Mild patchy bibasilar and ground-glass densities are redemonstrated, likely infectious or inflammatory. 2. Decreased attenuation of the cardiac blood pool, compatible with anemia. 3. No retroperitoneal hemorrhage. 4. No bowel obstruction or bowel wall thickening. 5. Additional findings as above. ACT 112: Negative or not required by law. The above report was generated using voice recognition software. It may contain grammatical, syntax or spelling errors. Dictated: 12/08/2023 10:21 AM Transcribed: 12/08/2023 11:23 AM Markie [id number] [email or web address] Electronically signed by: Chucky Gtz M.D. 12/08/2023 12:23 PM Ordered Studies 12/06/23 00:39 CT angio chest PE protocol Urgent 12/08/23 08:30 CT Abd and Pelvis [CT abd pelvis wo con] Urgent Hospital Course (1) SOB (shortness of breath): 88-year-old female with past medical history significant for chronic respiratory failure with hypoxia currently on home oxygen 3 L, COPD, moderate pulmonary hypertension, hypertension constipation, protein-calorie malnutrition, CKD stage III , chronic ITP, history of nonmelanoma skin cancer presents with shortness of breath and rapid A-fib. Patient says she was doing fine in the morning and in the evening suddenly started feeling short of breath. Then she panicked and felt her heart palpitations. Currently on 4 to 5 L she saturating okay. Able to give her history. Denies any chest pain. Has some mild dry cough. Denies fevers. Denies any headache. Vision is okay. Currently no runny nose. No sore throat. Appetite is okay. No difficulty swallowing. No nausea. No sweating. No abdominal pain. States she is constipated but had a bowel movement today. Denies any blood in the stools or black stools. Normal micturition. Ambulates with a walker. Lives with her son. Recently on November 07 patient was admitted to [facility] with shortness of breath and increasing oxygen requirements and nosebleed and black stools and black stools were thought to be from nosebleed and found to have platelets for 5 in setting of stopping her Doptelet for a week due to elevated platelets of 684. And on November 08 patient was transferred from [facility] to [facility] for severe thrombocytopenia as platelet counts are only 5.After discussing with heme-onc was given IV Methylprednisolone 1000 mg IV daily for 3 days. And continued her home Doptelet. Her platelet count improved at time of discharge to 56. Looks like patient was again admitted to [facility] on November 14, 2023 with a dizziness and hypotension. Received fluids. Patient also found to be in rapid A-fib new onset and discharged on metoprolol and Eliquis. She followed up with cardiology on November 27 and her Lasix dose has been decreased from 40 mg to 20 mg because of low blood pressure and dizziness. Leg swelling is improved. Acute on chronic respiratory failure with hypoxia and hypercarbia Likely multifactorial secondary to A-fib RVR, COPD, pneumonia Chronic oxygen dependency--on 3 L at baseline Elevated BNP -ECHO: No regional wall motion abnormality. A-fib RVR during echo. EF 50 to 55 %. Right ventricle is mildly dilated. Right ventricular systolic function is mildly reduced. Left atrium is mildly dilated. Mild mitral and tricuspid regurgitation. Pulmonary artery pressure estimated to be 57 mmHg. -Chest CTA:No acute abnormality and in particular no evidence of pulmonary embolus. -- Titrate oxygen to keep saturation 88 to 92% Continue home inhalers, Lasix Nebs as needed Plan to discharge home today A-fib RVR Metoprolol tartrate changed to metoprolol succinate 50 mg twice a day On Eliquis for anticoagulation Replace electrolytes as needed Appreciate cardiology input Monitor Tolerating current metoprolol dose Needs follow-up with cardiology on discharge Possible sepsis Possible gram-negative pneumonia CTA:No evidence of pulmonary embolus. Bronchiectasis and scattered groundglass opacities versus mosaic attenuation likely represent infectious/inflammatory airways disease. Bio fire negative Normal procalcitonin Empirically on Rocephin, doxycycline Transition to p.o. antibiotics on discharge Mild troponin elevation Likely demand ischemia secondary to A-fib RVR Echo showed no wall motion abnormality H/o COPD H/o Pulmonary hypertension Continue home inhalers Chronic ITP Continue home Doptelet Monitor platelet count Follows with heme-onc Chronic anemia Iron deficiency anemia Baseline hemoglobin around 9 Monitor CBC FOBT pending Denies any bleeding issues currently Hb 7.8 today Monitor H&H and transfuse as needed Given IV Venofer today>> discharged on iron supplements Discussed with hematology Dr. Choi on 12/08/2023: Advised to continue Doptelet and transfuse as needed Advised to follow-up with Dr. Choi on discharge with repeat blood work Hypertension Continue metoprolol Monitor Constipation Continue bowel regimen CKD stage III Cr at baseline Monitor renal function Hypokalemia Hypomagnesia Replace and monitor Severe protein calorie malnutrition Dietitian consulted DVT Px: Eliquis Code Status Full Code Disposition Home Total Time Total Time Spent Total Time Spent (In Minutes): 58 minutes Discharge Plan Discharge Items Patient Disposition: Home - Self-Care Reason For Visit: SOB, RAPID A FIB Discharge Diagnosis: Acute on chronic respiratory failure with hypoxia and hypercarbia A-fib RVR Pneumonia Iron deficiency anemia Condition on Discharge: Fair Activity: Per Instructions section Exercise/Sports: Wait until after follow-up appointment Non-emergency contact: Primary Care Provider and Supervisor Treating And Pumping Call non-emergency contact if: you have any medication questions, your symptoms worsen, your pain is concerning for you and you have a fever Follow-up/Referrals: Raysa Watson CRNP [Primary Care Provider] - Diet: Heart Healthy Addtl Attending Provider Instructions: Follow-up with your primary care physician Raysa MCHUGH in 1 week Follow-up with your clerical supervisor Dr. Doherty in 4 weeks Follow-up with your web systems developer Dr. Zeeshan Chio in 1 week as advised --Complete the antibiotic course cefdinir, doxycycline as prescribed. -- Obtain blood work (complete blood count) in 1 week and follow-up with Dr. Zeeshan Choi for further recommendations -- Your final blood cultures are pending at the time of discharge. Follow-up with your physician for results. Seek immediate medical attention if your symptoms reoccur or worsen Please take all medications as instructed on discharge list below. Please call if you have any questions or problems. You can reach a [facility] hospitalist on duty at [facility] 24 hours a day by calling [phone] Pending Studies at Discharge: Yes Studies:: Blood Cultures Stand-Alone Forms: My [facility], Smoking Cessation Medications and DC Order Prescriptions: New ferrous sulfate 325 mg (65 mg iron) Tablet,Delayed Release (Dr/Ec) 325 mg PO BIDM Qty: 60 1RF doxycycline hyclate 100 mg Capsule 100 mg PO BID Qty: 8 0RF metoprolol succinate 50 mg Tablet Extended Release 24 Hr 50 mg PO BID Qty: 60 1RF cefdinir 300 mg capsule 300 mg PO DAILY Qty: 4 0RF Rx Instructions: Start taking from 12/10/23 Continued albuterol sulfate 90 mcg/actuation HFA aerosol inhaler 2 puff INHALATION Q4 PRN (Reason: Shortness Of Breath Or Wheezing) Doptelet (30 tab pack) 20 mg tablet 20 mg PO QAM cyanocobalamin (vitamin B-12) 1,000 mcg Tablet 1,000 mcg PO DAILY furosemide 20 mg tablet 20 mg PO QAM cholecalciferol (vitamin D3) [Vitamin D3] 50 mcg (2,000 unit) Capsule 50 mcg PO DAILY Eliquis 2.5 mg tablet 2.5 mg PO BID Trelegy Ellipta 100-62.5-25 mcg blister with device 1 inh INHALATION QAM Discontinued metoprolol tartrate 25 mg tablet 25 mg PO BID Discharge Orders: Discharge Order (Routine); Ordered 12/09/23 Ordered By: Gerald Gill Admission Data Admit Date/Time: 12/06/23 00:38 Attending Provider: Gerald Gill Admit Provider: Koffi Bailey Primary Care Provider: Raysa Watson Other Providers: Koffi Bailey; Vignesh Doherty
[2023-12-10] MEDS ORDERED: FERROUS SULFATE 325 MG TAB PO SCH (09:00)
== END 2023-12-09 15:55 | disposition home or self-care (01) | DRG 871 ==
LOC: ED 21:56 → EDINP 12-06 00:38 → SUATTDRO 12-06 00:38 → 2E 12-06 02:48

== ENCOUNTER 2024-09-05 15:21 | Inpatient (IN) ==
--- NOTE | 2024-09-05 15:30 | ED Triage Note ---
Date of Service September 05, 2024 Provider in Triage Author: Jaja Bautista History of Present Illness This patient was briefly evaluated while in triage. An abbreviated physical exam was performed. This patient is a 88-year-old Female who presents to the ED for evaluation hx of afib, CHF sudden onset of feeling SOB and heart racing while resting at home a few hours ago lasted for about 30 minutes, then resolved. Returned again just prior to arrival. Patient feeling better upon arrival in the ED. Son increased oxygen from 2 L to 4 L via nasal cannula. Physical Exam GENERAL: NAD CARDIOVASCULAR: RRR RESPIRATORY: Breath sounds diminished, but otherwise clear. ABDOMEN: BS x 4. Nontender to palpation. Initial orders for labs and / or imaging were placed and patient was placed in the waiting area until a bed is available. Please see further documentation for the full ED course.
[2024-09-05 16:48] LABS: Basophils # (auto) 0.09 K/uL (0.00-0.20); Basophils % (auto) 0.5 %; Eosinophils # (auto) 0.08 K/uL (0.00-0.50); Eosinophils % (auto) 0.5 %; Hematocrit (blood only) 32.6 % (37.0-47.0); Hemoglobin 10.5 g/dl (12.0-16.0); Immature Granulocytes # (auto) 0.12 K/uL (0.01-0.20); Immature Granulocytes % (auto) 0.7 %; Lymphocytes # (auto) 0.83 K/uL (1.20-3.40); Lymphocytes % (auto) 5.1 %; Mean Corpuscular Hemoglobin 29.9 pg (25.0-34.0); Mean Corpuscular Hgb Conc 32.2 g/dL (32.0-36.0); Mean Corpuscular Volume 92.9 fL (80.0-100.0); Mean Platelet Volume 9.6 fL (9.4-12.4); Monocytes # (auto) 0.94 K/uL (0.11-0.59); Monocytes % (auto) 5.7 %; Neutrophils # (auto) 14.35 K/uL (1.40-6.50); Neutrophils % (auto) 87.5 %; Platelet Count 702 K/uL (130-400); RDW Coefficient of Variation 13.5 % (11.5-14.5); RDW Standard Deviation 46.2 fL (36.4-46.3); Red Blood Count 3.51 M/uL (4.20-5.40); White Blood Count 16.41 K/ul (4.8-10.8)
[2024-09-05 16:52] LABS: Albumin Globulin Ratio 1.4 (0.9-2); Albumin Level 3.9 gm/dl (3.4-5.0); Bilirubin,Total 1.1 mg/dl (0.2-1.0); Calcium 9.2 mg/dl (8.6-10.3); Creatinine Clr Calc Pharmacy 29.3 ml/min; Globulin 2.7 gm/dl (2.5-4.0); Potassium 4.1 mmol/L (3.5-5.1); Total Protein 6.6 gm/dl (6.0-8.3)
[2024-09-05 16:59] LABS: Troponin I High Sensitivity 17.2 pg/ml (0-14)
[2024-09-05 17:02] LABS: INR 1.1 (0.9-1.1); Partial Thromboplastin Ratio 1.1; Partial Thromboplastin Time 30 Seconds (21-31); Prothrombin Time 11.8 Seconds (9.0-12.0)
[2024-09-05 17:08] LABS: Thyroid Stimulating Hormone 4.592 uIu/ml (0.300-4.500)
[2024-09-05 17:43] LABS: T4 Free Thyroxine 1.06 ng/dl (0.61-1.60)
--- NOTE | 2024-09-05 17:58 | XRay Report ---
EXAM: Radiograph of the Chest 1 View INDICATION: Palpitations. Shortness of breath. TECHNIQUE: Frontal view of the chest. COMPARISON: 12/06/2023 FINDINGS: Lungs and pleural spaces: Asymmetric bronchovascular thickening left lung. No consolidation or pulmonary edema. No pleural effusion or pneumothorax. Heart: Shape and configuration within normal limits allowing for technique. Mediastinum: Normal contour. Bones/joints: Degenerative changes noted throughout the spine. No acute osseous abnormality seen. Soft tissues: No abnormality noted. No radiopaque foreign body noted. Upper abdomen: No abnormality noted. IMPRESSION: Asymmetric increased bronchovascular markings in the left lung. Consider unilateral bronchitis, infectious pneumonitis and aspiration. ACT 112: Negative or not required by law. Electronically signed by Estefani Pierson 09-05-2024 5:57 PM
--- NOTE | 2024-09-05 18:30 | Emergency Department Note ---
Impression & Plan SOB (shortness of breath), Pneumonia, Acute exacerbation of chronic obstructive pulmonary disease (COPD) ED Provider Note ED Provider Note NAME: LORENZA COTTRELL AGE:88 SEX: Female : 1935 ARRIVES VIA: Private vehicle INFORMANT: Patient ED PROVIDER(s): Lee Ann Dodd DO CHIEF COMPLAINT: Increased shortness of breath HPI: This is an 88-year-old female who presents to the emergency department due to concern for increased shortness of breath. Patient states she had symptoms this morning midmorning with accompanying palpitations and she felt as though her face was flushed. She contacted family who called her doctor. In the interim her symptoms seem to resolved. Then this afternoon around 230 the symptoms occurred again and family brought her here for additional evaluation. She does have a history of atrial fibrillation and follows with cardiology. She also has a history of COPD. She does use oxygen at night to sleep and occasionally as needed although states she does not use oxygen often during the day and feels fine. Patient denies any recent fevers, chills, or URI symptoms. She denies any recent leg swelling. Patient does take furosemide daily and is also on Eliquis. PAST MEDICAL HISTORY:See Below PAST SURGICAL HISTORY:See Below FAMILY HISTORY:See Below SOCIAL HISTORY:See Below HOME MEDICATIONS:See Below ALLERGIES:See Below VITALS:See Below PHYSICAL EXAMINATION: GENERAL: alert, well appearing, well nourished, no distress, non-toxic EYE EXAM: normal conjunctiva, PERRL and EOM's grossly intact OROPHARYNX: no exudate, no erythema, lips, buccal mucosa, and tongue normal and mucous membranes are moist NECK: supple, no nuchal rigidity, no adenopathy, non-tender LUNGS: Decreased bilaterally to auscultation. Normal chest wall mechanics, no w/r, bibasilar Rales, no tachypnea, no increased work of breathing HEART: no murmurs, S1 normal and S2 normal ABDOMEN: abdomen soft, non-tender, normo-active bowel sounds, no masses, no rebound or guarding. SKIN: no rashes, petechiae, orbruising UPPER EXTREMITIES: upper extremities are grossly normal. FROM, nml pulses b/l. LOWER EXTREMITIES: No pitting edema. FROM, nml pulses b/l. NEURO EXAM: Normal sensorium, cranial nerves II-XII grossly intact, normal speech, no facial droop,nogross weakness of arms, no gross weakness of legs. Gross sensation intact. No ataxia. Vital Signs: reviewed and remarkable Differential Diagnosis: pneumonia, bronchitis, COPD/Asthma exacerbation, pneumothorax, pulmonary embolism, congestive heart failure, acute coronary syndrome, as well as others were considered MEDICAL DECISION MAKING: This is an 88-year-old female who presents to the emergency room due to increased shortness of breath. Patient with underlying COPD and does wear oxygen at night and as needed. Patient was afebrile and hemodynamically stable on arrival. Labs drawn and sent, IV established, EKG and chest x-ray performed at bedside interpreted by me and patient monitored on telemetry. Patient was given a DuoNeb treatment here. Nasal swab obtained and sent for viral panel. Patient's chest x-ray with increased markings noted on the left in the perihilar region although no focal consolidation. Patient's nasal swab negative for acute viral etiology. Patient's labs revealed elevated BNP, although not as high as of November 2023. Patient is with no other clinical findings to suggest acute CHF. Patient noted to have borderline elevated troponin although denies ongoing chest pain and she had no acute EKG changes. Given atypical findings on chest x-ray as well as leukocytosis and increased oxygen requirements, patient covered with IV Rocephin and doxycycline for likely pneumonia. Case discussed with [facility] hospitalist team for additional evaluation and management. Consultation(s): 2024: Discussed with Dr. Bailey, [facility] hospitalist team, for additional evaluation and mgmt. ER Treatment Provided: See below Diagnostics Interpreted By Me: -ECG: nsr at 75 with 1st degree AV block, nml axis, nml intervals, no acute ST/T wave changes -Cardiac Monitoring: An order was placed for continuous cardiac monitoring. The monitor shows a rate of 76 with normal sinus rhythm. -Laboratory studies: As stated above and show below. -Imaging studies: cxr: No cardiomegaly, no wide mediastinum, increased interstitial markings noted on the left, no pleural effusion, no focal consolidation Triage Nursing Note Reviewed Prior/Outside Records Reviewed Past Med/Surg History Problem List (Updated 09/05/24 @ 23:38 by Lee Ann Dodd DO) Acute exacerbation of chronic obstructive pulmonary disease (COPD) (Acute) COPD exacerbation Pneumonia (Acute) SOB (shortness of breath) (Acute) Chronic hypoxic respiratory failure, on home oxygen therapy Acute on chronic diastolic HF (heart failure) SOB (shortness of breath) Hypokalemia (Acute) Hypomagnesemia (Acute) Congestive heart failure (Acute) Anemia (Acute) Hypoxemia (Acute) Atrial fibrillation with rapid ventricular response (Acute) Acute idiopathic thrombocytopenic purpura (Acute) Thrombocytopenia (Acute) Gingival bleeding (Acute) Petechiae (Acute) Social History Smoking Status: Former smoker Hx Alcohol Use: No Hx Substance Use: No Preferred Language: Marshallese Communication Ability: Effective 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: No Beliefs That Will Affect Care: None Current Living Situation: Family Current Living Situation Comment: Lives with son Feels Safe at Home: Yes Assistive Devices: Oxygen - Continuous and Walker Allergies Allergies Allergy/AdvReac Type Severity Reaction Status Date / Time lisinopril AdvReac Intermediate Gastrointestinal Verified 12/05/23 23:46 Upset Home Meds Home Medications Medication Instructions Recorded Confirmed albuterol sulfate 2.5 mg/3 mL 2.5 mg continuous nebulization Q4H 09/05/24 09/05/24 (0.083 %) solution for nebulization PRN Shortness Of Breath Or Wheezing albuterol sulfate 90 mcg/actuation 2 puff inhalation Q4H PRN 09/05/24 09/05/24 aerosol inhaler Shortness Of Breath Or Wheezing amlodipine 5 mg tablet 5 mg PO DAILY 09/05/24 09/05/24 apixaban 2.5 mg tablet (Eliquis) 2.5 mg PO BID 09/05/24 09/05/24 avatrombopag 20 mg tablet 20 mg PO UD 09/05/24 09/05/24 (Doptelet (10 tab pack)) ferrous sulfate 325 mg (65 mg 325 mg PO BID 09/05/24 09/05/24 iron) tablet,delayed release fluticasone fur. 100 mcg-umeclid 1 inh inhalation DAILY 09/05/24 09/05/24 62.5 mcg-vilant 25 mcg inhalat.powder (Trelegy Ellipta) furosemide 20 mg tablet 20 mg PO DAILY 09/05/24 09/05/24 metoprolol succinate 50 mg 50 mg PO BID 09/05/24 09/05/24 tablet,extended release 24 hr polyethylene glycol 3350 17 17 g PO DAILY 09/05/24 09/05/24 gram/dose oral powder Results & Data (ED) Vital Signs Vital Signs - 24 hr 09/05/24 15:27 09/05/24 15:33 09/05/24 17:17 Temperature 36.7 C Temperature Source Temporal Artery Scan Pulse Rate 89 Pulse Rate [Apical] Pulse Rhythm [Apical] Pulse Strength [Apical] Respiratory Rate 24 Respiratory Effort / Characteristics Non-Labored Spontaneous Respiratory Depth Normal Respiratory Pattern Blood Pressure 185/67 H Blood Pressure [Right Arm] Blood Pressure Mean 106 Blood Pressure Mean [Right Arm] Blood Pressure Position Sitting Blood Pressure Position [Right Arm] Pulse Oximetry 98 98 Oxygen Delivery Method Nasal Cannula Nasal Cannula Nasal Cannula Oxygen Flow Rate 4 4 2 Sepsis Recent Fever Within 48 Hours No Sepsis New/Unexplained Change in Mental Status N/A Sepsis Action Taken by Nursing No Action Required Oxygen Flow Rate - Titration Pulse Oximetry Post Tiitration 09/05/24 17:17 09/05/24 17:19 09/05/24 18:30 Temperature Temperature Source Pulse Rate 67 Pulse Rate [Apical] 74 Pulse Rhythm [Apical] Regular Pulse Strength [Apical] Normal Respiratory Rate 20 Respiratory Effort / Characteristics Non-Labored Spontaneous Respiratory Depth Normal Respiratory Pattern Regular Blood Pressure Blood Pressure [Right Arm] 170/76 H Blood Pressure Mean Blood Pressure Mean [Right Arm] 107 Blood Pressure Position Blood Pressure Position [Right Arm] Lying Pulse Oximetry 95 70 L Oxygen Delivery Method Room Air Nasal Cannula Oxygen Flow Rate 0 Sepsis Recent Fever Within 48 Hours Sepsis New/Unexplained Change in Mental Status Sepsis Action Taken by Nursing Oxygen Flow Rate - Titration 4 Pulse Oximetry Post Tiitration 96 09/05/24 19:00 09/05/24 21:00 09/05/24 21:25 Temperature Temperature Source Pulse Rate 70 Pulse Rate [Apical] 73 69 Pulse Rhythm [Apical] Regular Pulse Strength [Apical] Normal Respiratory Rate 20 Respiratory Effort / Characteristics Non-Labored Spontaneous Respiratory Depth Normal Respiratory Pattern Regular Blood Pressure Blood Pressure [Right Arm] 142/75 H 131/66 Blood Pressure Mean Blood Pressure Mean [Right Arm] 97 87 Blood Pressure Position Blood Pressure Position [Right Arm] Lying Pulse Oximetry 98 99 Oxygen Delivery Method Nasal Cannula Nasal Cannula Oxygen Flow Rate 4 4 Sepsis Recent Fever Within 48 Hours Sepsis New/Unexplained Change in Mental Status Sepsis Action Taken by Nursing Oxygen Flow Rate - Titration Pulse Oximetry Post Tiitration 09/05/24 23:27 Temperature Temperature Source Pulse Rate Pulse Rate [Apical] 67 Pulse Rhythm [Apical] Pulse Strength [Apical] Respiratory Rate 20 Respiratory Effort / Characteristics Respiratory Depth Respiratory Pattern Blood Pressure Blood Pressure [Right Arm] 140/100 Blood Pressure Mean Blood Pressure Mean [Right Arm] 113 Blood Pressure Position Blood Pressure Position [Right Arm] Pulse Oximetry 99 Oxygen Delivery Method Oxygen Flow Rate Sepsis Recent Fever Within 48 Hours Sepsis New/Unexplained Change in Mental Status Sepsis Action Taken by Nursing Oxygen Flow Rate - Titration Pulse Oximetry Post Tiitration Laboratory Data 09/05/24 16:10 09/05/24 16:10 Lab Results 09/05/24 09/05/24 Range/Units 16:10 18:27 WBC 16.41 H (4.8-10.8) K/ul RBC 3.51 L (4.20-5.40) M/uL Hgb 10.5 L (12.0-16.0) g/dl Hct 32.6 L (37.0-47.0) % MCV 92.9 (80.0-100.0) fL MCH 29.9 (25.0-34.0) pg MCHC 32.2 (32.0-36.0) g/dL RDW Std Deviation 46.2 (36.4-46.3) fL RDW Coeff of Dwaine 13.5 (11.5-14.5) % Plt Count 702 H (130-400) K/uL MPV 9.6 (9.4-12.4) fL Immature Gran % (Auto) 0.7 % Neut % (Auto) 87.5 % Lymph % (Auto) 5.1 % [place] % (Auto) 5.7 % Eos % (Auto) 0.5 % Baso % (Auto) 0.5 % Neut # (Auto) 14.35 H (1.40-6.50) K/uL Lymph # (Auto) 0.83 L (1.20-3.40) K/uL [place] # (Auto) 0.94 H (0.11-0.59) K/uL Eos # (Auto) 0.08 (0.00-0.50) K/uL Baso # (Auto) 0.09 (0.00-0.20) K/uL Immature Gran # (Auto) 0.12 (0.01-0.20) K/uL PT 11.8 (9.0-12.0) Seconds INR 1.1 (0.9-1.1) APTT 30 (21-31) Seconds PTT Ratio 1.1 Sodium 141 (136-145) mmol/L Potassium 4.1 (3.5-5.1) mmol/L Chloride 103 (98-107) mmol/L Carbon Dioxide 35 H (21-32) mmol/L Anion Gap 3 (3-11) BUN 20 (6-23) mg/dl Creatinine 0.91 (0.6-1.2) mg/dl Est Cr Clr Drug Dosing 29.3 ml/min eGFR 60.68 BUN/Creatinine Ratio 22.0 H (10-20) Glucose 118 H (70-99(Fasting)) mg/dl Calcium 9.2 (8.6-10.3) mg/dl Magnesium 2.0 (1.7-2.4) mg/dl Total Bilirubin 1.1 H (0.2-1.0) mg/dl AST 20 (13-39) U/L ALT 9 (7-52) U/L Alkaline Phosphatase 38 (34-104) U/L Troponin I High Sens 17.2 H (0-14) pg/ml B-Natriuretic Peptide 640 H (0-100) pg/ml Total Protein 6.6 (6.0-8.3) gm/dl Albumin 3.9 (3.4-5.0) gm/dl Globulin 2.7 (2.5-4.0) gm/dl Albumin/Globulin Ratio 1.4 (0.9-2) TSH 4.592 H (0.300-4.500) uIu/ml Free T4 1.06 (0.61-1.60) ng/dl Urine Color Yellow Urine Appearance Clear (Clear) Urine pH 8.0 H (4.5-7.5) Ur Specific [place] 1.008 (1.000-1.030) Urine Protein Negative (Negative) Urine Glucose (UA) Negative (Negative) Urine Ketones Negative (Negative) Urine Blood Negative (Negative) Urine Nitrite Negative (Negative) Urine Bilirubin Negative (Negative) Urine Urobilinogen Negative (Negative) Ur Leukocyte Esterase Negative (Negative) Adenovirus (PCR) Not Detected (NotDetected) B. pertussis DNA (PCR) Not Detected (NotDetected) B.parapertussis DNA PCR Not Detected (NotDetected) C. pneumoniae DNA (PCR) Not Detected (NotDetected) Coronavirus OC43 (PCR) Not Detected (NotDetected) Coronavirus HKU1 (PCR) Not Detected (NotDetected) Coronavirus 229E (PCR) Not Detected (NotDetected) SARS-CoV-2 (PCR) Not Detected (NotDetected) Coronavirus NL63 (PCR) Not Detected (NotDetected) Human Metapneumovir PCR Not Detected (NotDetected) Influenza Type A (PCR) Not Detected (NotDetected) Influenza Type B (PCR) Not Detected (NotDetected) M. pneumoniae (PCR) Not Detected (NotDetected) Parainfluenza 1 (PCR) Not Detected (NotDetected) Parainfluenza 2 (PCR) Not Detected (NotDetected) Parainfluenza 3 (PCR) Not Detected (NotDetected) Parainfluenza 4 (PCR) Not Detected (NotDetected) RSV (PCR) Not Detected (NotDetected) Entero/Rhino (PCR) Not Detected (NotDetected) Administered Medications Discontinued Medications Albuterol (Albut/Ipratrop 3mg/0.5mg Neb 3 Ml Vial) 3 ml NEB NOW STA; Protocol Stop: 09/05/24 18:59 Last Admin: 09/05/24 19:21 Dose: 3 ml Documented By: SAUNDRA Apixaban (Apixaban 2.5 Mg Tab) 2.5 mg PO NOW STA Stop: 09/05/24 22:18 Last Admin: 09/05/24 22:30 Dose: 2.5 mg Documented By: ALEXANDREA Doxycycline Hyclate (Doxycycline Hyclate 100 Mg Cap) 100 mg PO NOW STA Stop: 09/05/24 19:30 Last Admin: 09/05/24 19:50 Dose: 100 mg Documented By: ALEXANDREA Ceftriaxone Sodium (Rocephin) 2,000 mg in 50 mls @ 100 mls/hr IV NOW STA Stop: 09/05/24 19:58 Last Infusion: 09/05/24 23:28 Dose: Infused Documented By: Admin: 09/05/24 19:50 Dose: 100 mls/hr Documented By: ALEXANDREA Methylprednisolone (Methylprednisolone 125 Mg/2 Ml Vial) 40 mg IV NOW STA Stop: 09/05/24 20:10 Last Admin: 09/05/24 20:16 Dose: 40 mg Documented By: ALEXANDREA Metoprolol Succinate (Metoprolol Succ 50mg Ext Rel Tab) 50 mg PO NOW STA Stop: 09/05/24 22:18 Last Admin: 09/05/24 22:30 Dose: 50 mg Documented By: ALEXANDREA Imaging Data Radiologist's Impression: Chest X-Ray 09/05/24 15:30 EXAM: Radiograph of the Chest 1 View INDICATION: Palpitations. Shortness of breath. TECHNIQUE: Frontal view of the chest. COMPARISON: 12/06/2023 FINDINGS: Lungs and pleural spaces: Asymmetric bronchovascular thickening left lung. No consolidation or pulmonary edema. No pleural effusion or pneumothorax. Heart: Shape and configuration within normal limits allowing for technique. Mediastinum: Normal contour. Bones/joints: Degenerative changes noted throughout the spine. No acute osseous abnormality seen. Soft tissues: No abnormality noted. No radiopaque foreign body noted. Upper abdomen: No abnormality noted. IMPRESSION: Asymmetric increased bronchovascular markings in the left lung. Consider unilateral bronchitis, infectious pneumonitis and aspiration. ACT 112: Negative or not required by law. Electronically signed by Estefani Pierson 09-05-2024 5:57 PM Discharge Plan Visit Data Chief Complaint: Tachycardia Stated Complaint: TACHYCARDIA ED Provider: Lee Ann Dodd Discharge Problem: SOB (shortness of breath), Pneumonia, Acute exacerbation of chronic obstructive pulmonary disease (COPD) Forms Stand Alone Forms: My [facility] [employer] Prescriptions Prescriptions: No Action metoprolol succinate 50 mg tablet extended release 24 hr 50 mg PO BID amlodipine 5 mg tablet 5 mg PO DAILY furosemide 20 mg tablet 20 mg PO DAILY Eliquis 2.5 mg tablet 2.5 mg PO BID Trelegy Ellipta 100-62.5-25 mcg blister with device 1 inh INHALATION DAILY Doptelet (10 tab pack) 20 mg tablet 20 mg PO UD Rx Instructions: 20mg po daily except Monday and Monday albuterol sulfate 2.5 mg /3 mL (0.083 %) solution for nebulization 2.5 mg continuous nebulization Q4H PRN (Reason: Shortness Of Breath Or Wheezing) polyethylene glycol 3350 17 gram/dose powder 17 g PO DAILY albuterol sulfate 90 mcg/actuation HFA aerosol inhaler 2 puff INHALATION Q4H PRN (Reason: Shortness Of Breath Or Wheezing) ferrous sulfate 325 mg (65 mg iron) tablet,delayed release (DR/EC) 325 mg PO BID Referrals Referrals: Toshia Reynaga DO [Primary Care Provider] -
[2024-09-05 18:45] LABS: Appearance Urine Clear (Clear); Bilirubin Urine Negative (Negative); Blood Urine Negative (Negative); Color Urine Yellow; Glucose Urine UA Negative (Negative); Ketones Urine Negative (Negative); Leukocyte Esterase Urine Negative (Negative); Nitrite Urine Negative (Negative); Protein Urine Negative (Negative); Specific Gravity Urine 1.008 (1.000-1.030); Urobilinogen Urine Negative (Negative)
[2024-09-05] MEDS: ALBUT/IPRATROP 3MG/0.5MG NEB 3 ML VIAL NEB STA (19:21)
[2024-09-05 19:25] LABS: Adenovirus PCR Not Detected (NotDetected); Bordetella parapertussis PCR Not Detected (NotDetected); Bordetella pertussis PCR Not Detected (NotDetected); Chlamydia pneumoniae PCR Not Detected (NotDetected); Coronavirus 229E PCR Not Detected (NotDetected); Coronavirus CoV-2 (COVID19)PCR Not Detected (NotDetected); Coronavirus HKU1 PCR Not Detected (NotDetected); Coronavirus NL63 PCR Not Detected (NotDetected); Coronavirus OC43PCR Not Detected (NotDetected); Human Metapneumovirus PCR Not Detected (NotDetected); Influenza A PCR Not Detected (NotDetected); Influenza B PCR Not Detected (NotDetected); Mycoplasma pneumoniae PCR Not Detected (NotDetected); Parainfluenza Virus 1 PCR Not Detected (NotDetected); Parainfluenza Virus 2 PCR Not Detected (NotDetected); Parainfluenza Virus 3 PCR Not Detected (NotDetected); Parainfluenza Virus 4 PCR Not Detected (NotDetected); Respiratory Syncytial VirusPCR Not Detected (NotDetected); Rhinovirus/Enterovirus PCR Not Detected (NotDetected)
[2024-09-05] MEDS: DOXYCYCLINE HYCLATE 100 MG CAP PO STA (19:50)
[2024-09-05] MEDS: cefTRIAXone SODIUM 2,000 MG/50 ML BAG IV STA (19:50)
[2024-09-05] MEDS: methylPREDNISolone 125 MG/2 ML VIAL IV STA (20:16)
[2024-09-05] MEDS: METOPROLOL SUCC 50MG EXT REL TAB PO STA (22:30)
[2024-09-05] MEDS: APIXABAN 2.5 MG TAB PO STA (22:30)
--- OUTSIDE RECORDS SUMMARY | 2024-09-05 22:31 | External Medical Summary | Summary of Care ---
Author Name Unknown Organization [facility] Address [address] [place] [address] Phone [phone] Care Team Providers Care Slusher Operator Name Role Phone Ronnell Toshiatheodore Paul DO Primary Care Provider [phone] Reason for Visit * Reason Onset Date Comments Medication Refill 08/29/2024 Encounter Details Date Type Department Care Team (Late st Contact Info) Description 08/29/2024 Refill Pulmonary Medicine, [facility] [address] [facility] [place] [address] Enrique [facility] [address] [facility] [address] Allergies Active Allergy Reactions Criticality Noted Date Comments Lisinopril Other (Please comment) 05/06/2022 Burning in throat documented as of this encounter (statuses as of 09/01/2024) Medications Cyanocobalamin 1000 MCG Oral Tablet Take 1 Tablet by mouth in the morning. Active Vitamin D3 125 MCG (5000 UT) Oral Capsule Take 1 Capsule by mouth in the morning. Active Polyethylene Glycol 3350 17 GM/SCOOP Oral Powder (MiraLax)Indicat ions:Constipatio n, unspecified constipation type Take by mouth 17 g as needed for Constipation. Dissolve one heaping tablespoon in 8 ounces of water or juice. 507 g 3 2 Active Acetaminophen 500 MG Oral Tablet (Tylenol) Take 1 Tablet by mouth every 6 hours as needed. Active Spacer/Aero-Hold ing Chambers Device Use with inhaler. 1 Each 4 Active Albuterol Sulfate (2.5 MG/3ML) 0.083% Inhalation Nebulization Solution (Proventil) Inhale 1 Vial via nebulizer every 4 hours as needed for Wheezing. 3 mL 1 4 Active Albuterol Sulfate HFA 108 (90 Base) MCG/ACT Inhalation Aerosol SolutionIndicati ons:COPD, very severe (HCC) Inhale 2 Puffs by mouth every 4 hours as needed for Cough, Shortness of Breath or Wheezing. 54 g 3 4 Active Ferrous Sulfate 325 (65 Fe) MG Oral Tablet Delayed Release Take 1 Tablet by mouth 2 times a day with morning and evening meals. 180 Tablet 1 4 Active Doptelet 20 MG Oral Tablet (Avatrombopag Maleate) Take 20 mg by mouth daily except for Monday and Monday. 30 Tablet 4 07/12/2024 11:04 AM EST 4 Active Eliquis 2.5 MG Oral Tablet (Apixaban) TAKE 1 TABLET IN THE MORNING AND TAKE 1 TABLET BEFORE BEDTIME 180 Tablet 1 4 Active Metoprolol Succinate ER 50 MG Oral Tablet Extended Release 24 Hour (toPROL XL) TAKE 1 TABLET IN THE MORNING AND TAKE 1 TABLET BEFORE BEDTIME 180 Tablet 1 4 Active Furosemide 20 MG Oral Tablet (Lasix) TAKE 1 TABLET EVERY MORNING 90 Tablet 1 4 Active amLODIPine Besylate 5 MG Oral Tablet (Norvasc) Take 1 Tablet by mouth in the morning. 90 Tablet 1 5 Active Trelegy Ellipta 100-62.5-25 MCG/ACT Aerosol Powder Breath Activated (Fluticasone-Ume clidinium-Vilant thalia) Inhale 1 Puff by mouth in the morning. 180 Blister Dosing Unit 1 5 Active Trelegy Ellipta 100-62.5-25 MCG/ACT Aerosol Powder Breath Activated (Fluticasone-Ume clidinium-Vilant thalia) Inhale 1 Puff by mouth in the morning. 180 Blister Dosing Unit 1 4 025 Discontin ued(Refil l) documented as of this encounter (statuses as of 09/01/2024) Active Problems Problem Noted Date Diagnosed Date Atrial fibrillation 01/24/2024 Chronic respiratory failure with hypoxia 024 Moderate pulmonary hypertension 09/18/2023 COPD, group B, by GOLD 2017 classification 06/05 Overview: Per COPD GOLD Classification Hx of nonmelanoma skin cancer 12/01/2022 Overview (12/22/2022): basal cell carcinoma (L superior parietal scalp 2018), R medial inferior forehead 12/13, L inferior forehead 12/13, R post auricular region 12/13) Stage 3a chronic kidney disease 11/07/2022 Protein-calorie malnutrition 06/27/2022 HTN, goal below 140/90 04/25/2022 Chronic ITP (idiopathic thrombocytopenia) 2021 Constipation 04/25/2022 documented as of this encounter (statuses as of 09/01/2024) Resolved Problems Problem Noted Date Diagnosed Date Resolved Date Chronic obstructive pulmonary disease 05/11/2023 06/08/2023 Overview: Per COPD GOLD Classification documented as of this encounter (statuses as of 09/01/2024) Immunizations No known immunizationsdocumented as of this encounter Social History Tobacco Use Types Packs/Day Years Used Date Smoking Tobacco: Former Cigarettes 0.3 5 1 974 - 1979 Passive Smoke Exposure: Never Smokeless Tobacco: Never Alcohol Use Standard Drinks/Week Comments Never 0 (1 standard drink = 0.6 oz pur e alcohol) PHQ-2 Answer Date Recorded PHQ Adult Total Score 0 05/29/2024 Hunger Vital Sign Answer Date Recorded Within the past 12 months, y ou worried that your food would run out before you got the money to buy more. Never true 05/29/20 24 Within the past 12 months, t he food you bought just didn't last and you didn't have money to get more. Never true 05/29/2024 Childcare Answer Date Recorded Do you feel overwhelmed with taking care of a child, family member or friend? No 05/29/2024 Does your family need help f inding childcare? (Household - for ages 0-17 years) Not on file 05/29/2024 Clothing Answer Date Recorded Have you been unable to get clothing when it was really needed? No 05/29/2024 Is your family able to get c lothes or diapers when needed? (Household - for ages 0-17 years) Not on file 05/29/2024 Personal Safety Answer Date Recorded Do you feel unsafe or have concerns for your saf ety? No 05/29/2024 Do you have concerns for you r family's safety? (Household - for ages 0-17 years) Not on file 05/29/2024 Utilities Answer Date Recorded Do you have trouble paying y our heating, water, or electric bill? No 05/29/2024 Is your family able to pay t he heat, water, or electric bill? (Household - for ages 0-17 years) Not on file 05/29/2024 Does your family have access to good internet? (Household - for ages 0-17 years) Not on file 05/29/2024 Employment Status Answer Date Recorded Are you unemployed or without regular income? No 05/29/2024 Does the household have a [facility] source of income? (Household - for ages 0-17 years) Not on file 05/29/2024 Social Connections Answer Date Recorded How often do you feel lonely or isolated from th ose around you? Never 05/29/2024 Financial Resource Strain Answer Date R ecorded Do you have any trouble payi ng for your medications, or do you think you might in the future? No 05/29/2024 Does your family have troubl e paying for medicine? (Household - for ages 0-17 years) Not on file 05/29/2024 Transportation Needs Answer Date Record ed Do you have trouble getting a ride to medical visits or work? (Adult - for ages 18 years and over) Not on file 05/29/2024 Does your family have a hard time getting a ride to doctors visits? (Household - for ages 0-17 years) Not on file 05/29/2024 Has lack of transportation k ept you from medical appointments, meetings, work, or from getting things needed for daily living? Check all that apply. No 05/29/2024 Do you (or your family) have trouble finding or paying for a ride (transportation)? (Household - for ages 0-17 years) Not on file 05/29/2024 Housing Stability Answer Date Recorded Do you currently live in a s helter or have no steady place to sleep at night? No 05/29/2024 Do you think you are at risk of becoming homeless? (Adult - for ages 18 years and over) Not on file 05/29/2024 Does your family worry about paying for your home or becoming homeless? (Household - for ages 0-17 years) Not on file 1 07/29/2023 Are you homeless or worried that you might be in the future? No 05/29/2024 Are you (or your family) venancio eless or worried that you might be in the future? (Household - for ages 0-17 years) Not on file Food Insecurity Answer Date Recorded Do you need food for this week? No 05/29/2024 Are you able to get enough f ood for your family? (Household - for ages 0-17 years) Not on file 05/29/2024 Does your family need food t his week? (Household - for ages 0-17 years) Not on file 05/29/2024 Do you always have enough fo od for your family? (Household - for ages 0-17 years) Not on file 05/29/2024 Food Insecurity Answer Date Recorded Within the past 12 months, y ou worried that your food would run out before you got the money to buy more. Never true 05/29/20 24 Within the past 12 months, t he food you bought just didn't last and you didn't have money to get more. Never true 05/29/2024 Do you need food for this week? No 05/29/2024 Comments No Sex and Gender Information Value Date Recorded Sex Assigned at Female 05/29/2024 12:53 PM EST Legal Sex Female 11:40 AM EDT Gender Identity Female 05/29/2024 12:53 PM EST Sexual Orientation Straight 05/29/2024 12 :53 PM EST documented as of this encounter Miscellaneous Notes * Telephone Encounter - Enrique Nam MD - 09/01/2024 4:45 PM EST Signed Prescriptions: Disp Refills Trelegy Ellipta 100-62.5-25 MCG/ACT Aeroso*180 Bl*1 Sig: Inhale 1 Puff by mouth in the morning. Authorizing Provider: ENRIQUE NAM * Telephone Encounter - Rebecca Lunsford [facility] - 08/29/2024 10:15 AM EST [facility] is not delegated to approve refills for medications from this specialty. Please approve if appropriate. Thanks, Rebecca Lunsford, PharmD Clinical Pharmacist Centralized Clinical Pharmacy Services ([facility]) [phone] 08/29/2024 10:15 AM * Telephone Encounter - Rebecca Lunsford RP - 08/29/2024 10:15 AM EST Pending Prescriptions: Disp Refills Trelegy Ellipta 100-62.5-25 MCG/ACT Aeros*180 Bl*1 Sig: Inhale 1 Puff by mouth in the morning. Last Visit: 08/07/2024 (in office), Visit date not found (telemedicine) Next Visit: 02/11/2025 If no future appointments scheduled, and last appointment is greater than a year ago, please schedule patient for a follow-up appointment Last date the medication was ordered: 04/17/24 Pharmacy: [facility] [address] [facility] [place] Is this request for a controlled substance? No Urine Drug Screen:No results found for this or any previous visit. Patient Phone Numbers Labs: Lab Results Component Value Date/Time CREAT 1.13 (H) 07/31/2024 12:00 AM POTASSIUM 4.0 07/31/2024 12:00 AM TSH 4.19 11/27/2023 02:30 PM LDL 108 11/27/2023 02:30 PM ALT <5 (L) 02/13/2024 01:17 PM documented in this encounter Plan of Treatment Upcoming Encounters Date Type Department Care Team (Late st Contact Info) Description 09/06/2024 9:00 AM EST Pharmacy Pharmacy Hematology Oncology [facility] [address] [place] [address] [facility] [place] Hem/Onc [address] [place] [address] 10/10/2024 11:00 AM EDT Laboratory Laboratory [facility] [address] [place] [phone] [place] [address] [facility] [place] [address] 10/17/2024 9:30 AM EDT Office Visit Hematology/Oncology [facility] [address] [place] [phone] Zeeshan Choi MD [address] [place] [address] 02/10/2025 9:40 AM EDT Office Visit Family Practice [facility] [address] [place] [address] Toshia Reynaga DO [address] [place] [address] 02/11/2025 1:30 PM EDT Office Visit Pulmonary Medicine, [facility] [address] [place] [address] Enrique Nam MD [address] [place] [address] Health Maintenance Due Date Last Done Comments DTap/Tdap Vaccines (1 - Tdap) 09/29/1954 Albumin/Creatinine Ratio 05/11/2024 05/11/2023, 07/24 Adult Wellness Visit 01/23/2025 01/24/2024 Depression Screening 05/29/2025 05/29/2024 CKD PHOS USE SMARTSET 63419 06/10/2025 06/10/2024, 0 11/10/2022 CKD HGB USE SMARTSET 88019 07/31/202507/31, 07/10/2024, 07/10/2024, Additional history exists O2 ASSESSMENT COMPLETED IN PAST YEAR FOR COPD 08/12/2025 08/12/2024 DXA Scan 12/07/2032 12/07/2022 Alpha-1 Antitrypsin Completed 07/26/2023 COVID-19 Vaccine Discontinued HPV (Gardasil) Vaccine Aged Out No lo nger eligible based on patient's age to complete this topic Hepatitis B Vaccine Aged Out No longe r eligible based on patient's age to complete this topic MENINGOCOCCAL (MENACTRA/MENVEO) Aged Out No longer eligible based on patient's age to complete this topic Pneumococcal Vaccine: 50+ Years Discontinued Zoster Vaccines Discontinued documented as of this encounter Medical Devices Not on filedocumented as of this encounter Care Teams Slusher Operator Relationship Specialty Start Date End Date Toshia Reynaga DO [address] [place] [address] PCP - General Family Medicine 12/07/22 documented as of this encounter
--- OUTSIDE RECORDS SUMMARY | 2024-09-05 22:31 | External Medical Summary | Summary of Care ---
Author Name Unknown Organization [facility] Address [address] [place] [address] Phone [phone] Care Team Providers Care Wedger Name Role Phone Toshia Reynaga DO Primary Care Provider [phone] Reason for Visit * Reason Comments New Med Request Encounter Details Date Type Department Care Team (Late st Contact Info) Description 08/28/[address] [facility] [address] [place] [address] Toshia Reynaga DO [address] [facility] [place] [address] Allergies Active Allergy Reactions Criticality Noted Date Comments Lisinopril Other (Please comment) 05/06/2022 Burning in throat documented as of this encounter (statuses as of 08/29/2024) Medications Cyanocobalamin 1000 MCG Oral Tablet Take [...] of water or juice. 507 g 3 04/25/20 22 Active Acetaminophen 500 MG Oral Tablet (Tylenol) Take 1 Tablet by mouth every 6 hours as needed. Active Spacer/Aero-Hold ing Chambers Device Use with inhaler. 1 Each 09/12/19 24 Active Albuterol Sulfate (2.5 MG/3ML) 0.083% Inhalation Nebulization Solution (Proventil) Inhale 1 Vial via nebulizer every 4 hours as needed for Wheezing. 3 mL 1 09/12/19 24 Active Albuterol Sulfate HFA 108 (90 Base) MCG/ACT Inhalation Aerosol SolutionIndicati ons:COPD, very severe (HCC) Inhale 2 Puffs by mouth every 4 hours as needed for Cough, Shortness of Breath or Wheezing. 54 g 3 10/12/19 24 Active Ferrous Sulfate 325 (65 Fe) MG Oral Tablet Delayed Release Take 1 Tablet by mouth 2 times a day with morning and evening meals. 180 Tablet 1 02/22/20 24 Active Trelegy Ellipta 100-62.5-25 MCG/ACT Aerosol Powder Breath Activated (Fluticasone-Ume clidinium-Vilant thalia) Inhale 1 Puff by mouth in the morning. 180 Blister Dosing Unit 1 04/17/20 24 Active Doptelet 20 MG Oral Tablet (Avatrombopag Maleate) Take 20 mg by mouth daily except for Monday and Monday. 30 Tablet 4 4 11:04 AM EST 04/22/20 24 Active Eliquis 2.5 MG Oral Tablet (Apixaban) TAKE 1 TABLET IN THE MORNING AND TAKE 1 TABLET BEFORE BEDTIME 180 Tablet 1 05/14/20 24 Active Metoprolol Succinate ER 50 MG Oral Tablet Extended Release 24 Hour (toPROL XL) TAKE 1 TABLET IN THE MORNING AND TAKE 1 TABLET BEFORE BEDTIME 180 Tablet 1 05/14/20 24 Active Furosemide 20 MG Oral Tablet (Lasix) TAKE 1 TABLET EVERY MORNING 90 Tablet 1 05/14/20 24 Active amLODIPine Besylate 5 MG Oral Tablet (Norvasc) Take 1 Tablet by mouth in the morning. 90 Tablet 1 08/29/19 25 Active amLODIPine Besylate 5 MG Oral Tablet (Norvasc) Take 1 Tablet by mouth in the morning. 08/02/19 25 025 Discontinued documented as of this encounter (statuses as of 08/29/2024) Active Problems Problem Noted Date Diagnosed Date [...] as of this encounter (statuses as of 08/29/2024) Resolved Problems Problem Noted Date Diagnosed Date Resolved Date Chronic obstructive pulmonary disease 05/11/2023 06/08/2023 Overview: Per COPD GOLD Classification documented as of this encounter (statuses as of 08/29/2024) Immunizations No known immunizationsdocumented as of this [...] No 05/29/2024 Does the household have a re lar source of income? (Household - for ages [...] encounter Miscellaneous Notes * Telephone Encounter - Constantino Syed MD - 08/29/2024 11:40 AM EST Signed Prescriptions: Disp Refills amLODIPine Besylate 5 MG Oral Tablet (Norv*90 Tab*1 Sig: Take 1 Tablet by mouth in the morning. Authorizing Provider: CONSTANTINO SYED Refused Prescriptions: Disp Refills Trelegy Ellipta 100-62.5-25 MCG/ACT Aeroso* 0 Refused By: DARRYL LUNSFORD Reason for Refusal: Managed by another physician Re ason for Refusal Comment: pulmonary * Telephone Encounter - Darryl Lunsford [facility] - 08/29/2024 10:17 AM ESTPending Prescriptions: Disp Refills amLODIPine Besylate 5 MG Oral Tablet (Norv*90 Tab*1 Sig: Take 1 Tablet by mouth in the morning. Refused Prescriptions: Disp Refills Trelegy Ellipta 100-62.5-25 MCG/ACT Aeroso* 0 Refused By: DARRYL LUNSFORD Reason for Refusal: Managed by another physician Reason for Refusal Comment: pulmonary * Telephone Encounter - Darryl Lunsford [facility] - 08/29/2024 10:17 AM EST Pharmacists cannot authorize refills for meds listed as "historical" in chart. Please approve if appropriate. Thanks, Darryl Lunsford, PharmD Clinical Pharmacist Centralized Clinical Pharmacy Services ([facility]) [phone] 08/29/2024 10:17 AM * Telephone Encounter - Darryl Lunsford [facility] - 08/29/2024 10:13 AM EST Pending Prescriptions: Disp Refills amLODIPine Besylate 5 MG Oral Tablet (Nor*90 Tab*1 Sig: Take 1 Tablet by mouth in the morning. Last Visit: 08/12/2024 (in office), Visit date not found (telemedicine) Next Visit: 02/10/2025 If no future appointments scheduled, and last appointment is greater than a year ago, please schedule patient for a follow-up appointment Last date the medication was ordered: HISTORICAL Pharmacy: [facility] [address]- [place] Is this request for a controlled substance? [...] 9:00 AM EST Pharmacy Pharmacy Hematology Oncology [facility] [address] [place] [address] [facility] [place] Hem/Onc [address] [place] [address] 10/10/2024 11:00 AM EDT Laboratory Laboratory [facility] [address] [place] [phone] [facility] [address] [place] [address] 10/17/2024 9:30 AM EDT Office Visit Hematology/Oncology [facility] [address] [place] [phone] Zeeshan Choi MD [address] [place] [address] 02/10/2025 9:40 AM EDT Office Visit Family Practice [facility] [address] [place] [address] Toshia Reynaga DO [address] [place] [address] 02/11/2025 1:30 PM EDT Office Visit Pulmonary Medicine, [facility] [address] [place] [address] Enrique Fernandez MD [address] [place] [address] Health Maintenance Due Date Last Done Comments DTap/Tdap Vaccines (1 - Tdap) 09/29/1954 Albumin/Creatinine Ratio 05/11/2024 05/11/2023, 07/24 Adult Wellness Visit 01/23/2025 01/24/2024 Depression Screening 05/29/2025 05/29/2024 CKD PHOS USE SMARTSET 78780 06/10/2025 06/10/2024, 0 11/10/2022 CKD HGB USE SMARTSET 94643 07/31/202507/31, 07/10/2024, 07/10/2024, Additional history exists O2 [...] filedocumented as of this encounter Care Teams Wedger Relationship Specialty Start Date End Date Toshia Reynaga DO [address] [place] [address] PCP - General Family Medicine 12/07/22 documented as of this encounter
--- OUTSIDE RECORDS SUMMARY | 2024-09-05 22:32 | External Medical Summary ---
Author Name Unknown Address Unknown Organization K[facility] [place] [address] Laboratory Report Ordering Provider Test Date Status RAMU VASQUES 07/10/2024 13:22:48 Final Observation Date Value Abnormality Reference (Units ) Status WBC, Total 07/10/2024 13:22:48 8.94 4.00-10.8 0 (K/uL) Final RBC 07/10/2024 13:22:48 3.37 3.85-5.15 (M/uL) Final Hemoglobin 07/10/2024 13:22:48 10.4 Below low normal 12 .0-15.3 (g/dL) Final HCT 07/10/2024 13:22:48 32.5 Below low normal 36. 0-45.2 (%) Final MCV 07/10/2024 13:22:48 96.4 81.5-97.5 (fL) Final MCH 07/10/2024 13:22:48 30.9 27.0-34.0 (pg) Final MCHC 07/10/2024 13:22:48 32.0 32.0-36.0 (g/dL) Final RDW 07/10/2024 13:22:48 13.8 11.5-15.5 (%) Final Platelets 07/10/2024 13:22:48 397 140-400 (K /uL) Final MPV 07/10/2024 13:22:48 9.6 6.6-11.1 ( fL) Final Performing Location [facility] [address]
--- OUTSIDE RECORDS SUMMARY | 2024-09-05 22:32 | External Medical Summary | Summary of Care ---
Author Name Unknown Organization [facility] Address [address] [place] [address] Phone [phone] Care Team Providers Care Title Closer Name Role Phone Toshia Reynaga DO Primary Care Provider [phone] Encounter Details Date Type Department Care Team (Late st Contact Info) Description 07/16/2024 Orders Only Hematology/Oncology [facility] [place] [address] [facility] [address] Ama Maldonado CRNP [address] [place] [address] Chronic ITP (idiopathic thrombocytopenia) (HCC)*; Thrombocytopenia, congenital and hereditary (HCC); Erythrocytosis Allergies Active Allergy Reactions Criticality Noted Date Comments Lisinopril Other (Please comment) 05/06/2022 Burning in throat documented as of this encounter (statuses as of 07/16/2024) Medications Cyanocobalamin 1000 MCG Oral Tablet Take [...] mouth every 6 hours as needed. Active Spacer/Aero-Holdi ng Chambers Device Use with [...] evening meals. 180 Tablet 1 4 Active Trelegy Ellipta 100-62.5-25 MCG/ACT Aerosol Powder Breath Activated (Fluticasone-Umec lidinium-Vilanter ol) Inhale 1 Puff by mouth in the morning. 180 Blister Dosing Unit 1 4 Active Doptelet 20 MG Oral [...] EVERY MORNING 90 Tablet 1 4 Active documented as of this encounter (statuses as of 07/16/2024) Active Problems Problem Noted Date Diagnosed Date [...] as of this encounter (statuses as of 07/16/2024) Resolved Problems Problem Noted Date Diagnosed Date Resolved Date Chronic obstructive pulmonary disease 05/11/2023 06/08/2023 Overview: Per COPD GOLD Classification documented as of this encounter (statuses as of 07/16/2024) Immunizations No known immunizationsdocumented as of this [...] 05/29/2024 Does the household have a re gular source of income? (Household - for ages [...] ages 0-17 years) Not on file 05/29/2024 Comments No Sex and Gender Information Value Date Recorded Sex Assigned at Female 05/29/2024 12:53 PM EST Legal Sex Female 11:40 AM EDT Gender Identity Female 05/29/2024 12:53 PM EST Sexual Orientation Straight 05/29/2024 12 :53 PM EST documented as of this encounter Plan of Treatment Upcoming Encounters Date Type Department Care Team (Late st Contact Info) Description 08/07/2024 1:40 PM EST Office Visit Pulmonary Medicine, [facility] [address] [facility] [place] [address] [facility] [address] [facility] [address] 08/09/2024 9:00 AM EST Pharmacy Pharmacy Hematology Oncology [address] [address] [address], [facility] Hem/Onc [facility] [place] [address] 10/10/2024 11:00 AM EDT Laboratory Laboratory [facility] [address] [place] [id number] [place] [address] [place] [address] 10/17/2024 9:30 AM EDT Office Visit Hematology/Oncology [facility] [place] [address] [facility] [place] [address] Zeeshan Choi MD [address] [facility] [place] [address] Scheduled Orders Name Type Priority Associated Diagnoses Orde r Schedule CBC WITH WBC DIFFERENTIAL Lab STAT Chronic ITP (idiopathic thrombocytopenia) (HCC) Expected: 10/14/2024 (Approximate), Expires: 07/16/2025 Health Maintenance Due Date Last Done Comments DTap/Tdap Vaccines (1 - Tdap) 09/29/1954 Albumin/Creatinine Ratio 05/11/2024 05/11/2023, 07/24 *NEPHROLOGY REFERRAL DUE TO RESISTANT HTN 07/13/2024 Adult Wellness Visit 01/23/2025 01/24/2024 Depression Screening 05/29/2025 05/29/2024 CKD PHOS USE SMARTSET 35870 06/10/2025 06/10/2024, 0 11/10/2022 CKD HGB USE SMARTSET 61816 07/10/202507/10, 07/10/2024, 06/27/2024, Additional history exists O2 ASSESSMENT COMPLETED IN PAST YEAR FOR COPD 07/10/2025 07/10/2024 DXA Scan 12/07/2032 12/07/2022 Alpha-1 Antitrypsin Completed 07/26/2023 COVID-19 Vaccine Discontinued HPV (Gardasil) Vaccine Aged Out No lo nger eligible based on patient's age to complete this topic Hepatitis B Vaccine Aged Out No longe r eligible based on patient's age to complete this topic MENINGOCOCCAL (MENACTRA/MENVEO) Aged Out No longer eligible based on patient's age to complete this topic Pneumococcal Vaccine: 65+ Years Discontinued Zoster Vaccines Discontinued documented as of this encounter Medical Devices Not on filedocumented as of this encounter Visit Diagnoses Diagnosis Chronic ITP (idiopathic thrombocytopenia) (HCC)- Primary Immune thrombocytopenic purpura Thrombocytopenia, congenital and hereditary (HCC) Congenital and hereditary thrombocytopenic purpura Erythrocytosis Polycythemia, secondary documented in this encounter Care Teams Title Closer Relationship Specialty Start Date End Date Ronnell, Toshia Beverly, DO [address] [place] [address] PCP - General Family Medicine 12/07/22 documented as of this encounter
--- OUTSIDE RECORDS SUMMARY | 2024-09-05 22:32 | External Medical Summary | Summary of Care ---
Author Name Unknown Organization [facility] Address [address] [place] [address] Phone [phone] Care Team Providers Care Barmaid Name Role Phone Ronnell Toshiatheodore Paul DO Primary Care Provider [phone] Reason for Visit * Reason Comments NEW PATIENT Pt presents for Trig josefa thumb of R hand * Evaluate & Treat - Unlimited Visits (Within 10 days (routine)) - Authorized Specialty Diagnoses / Procedures Referred By Felix t Referred To Contact Orthopaedic Surgery / Orthopedics Diagnoses Trigger thumb of right hand Constantino Syed MD [address] [place] [address] Phone: tel: fax: Referral ID Status Reason Start Date Expiration Date Visits Requested Visits Authorized [id number] Authorized Specialty Services Required 05/29/[phone] Encounter Details Date Type Department Care Team (Late st Contact Info) Description 06/27/2024 2:00 PM EST Office Visit Orthopaedics [facility] [address] [place] [address] Adarsh Quevedo PA-C [address] [place] [address] Trigger thumb, right thumb* Allergies Active Allergy Reactions Criticality Noted Date Comments Lisinopril Other (Please comment) 05/06/2022 Burning in throat documented as of this encounter (statuses as of 06/27/2024) Medications Cyanocobalamin 1000 MCG Oral Tablet Take [...] for Monday and Monday. 30 Tablet 4 06/14/2024 12:38 PM EST 4 Active Eliquis 2.5 MG Oral [...] EVERY MORNING 90 Tablet 1 4 Active Hospital, Clinic, or Other Facility Administered Medication Ordered Dose Route Frequency Start Date End Date Status lidocaine 1% 1 mL - triamcinolone acetonide 40 mg/mL 1 mL inj 2 mLIndications:Trigger thumb, right thumb 2 mL IJ ONCE 06/27/2024 06/27/2024 Ended documented as of this encounter (statuses as of 06/27/2024) Active Problems Problem Noted Date Diagnosed Date [...] as of this encounter (statuses as of 06/27/2024) Resolved Problems Problem Noted Date Diagnosed Date Resolved Date Chronic obstructive pulmonary disease 05/11/2023 06/08/2023 Overview: Per COPD GOLD Classification documented as of this encounter (statuses as of 06/27/2024) Immunizations No known immunizationsdocumented as of this [...] PM EST documented as of this encounter Progress Notes * Adarsh Quevedo PA-C - 06/27/2024 2:02 PM ESTAssociated Order(s): Hand/Upper Extremity Injection/Arthrocentesis: R thumb A1 Post-Procedure Diagnose(s): Trigger thumb, right thumb Subjective Edilma Kennedy is a 88 year old female. Chief Complaint Patient presents with NEW PATIENT Pt presents for Trigger thumb of R hand HPI: New patient referred regarding triggering in the right thumb. She points towards the A1 pulleyas being painful. She is right-hand dominant. She states that it interferes with ADLs elective activity on a daily basis. She is inquiring about treatment options. Denies any injury or fall. Will examined today and determine if radiographs are warranted. PMH: Patient Active Problem List Diagnosis HTN, goal below 140/90 Chronic ITP (idiopathic thrombocytopenia) (HCC) Constipation Protein-calorie malnutrition (HCC) Stage 3a chronic kidney disease (HCC) Hx of nonmelanoma skin cancer COPD, group B, by GOLD 2017 classification (HCC) Moderate pulmonary hypertension (HCC) Chronic respiratory failure with hypoxia (HCC) Atrial fibrillation (HCC) Current Outpatient Medications Medication Sig Dispense Refill [...] of Breath or Wheezing. 54 g 3 Ferrous Sulfate 325 (65 Fe) MG Oral Tablet Delayed Release Take 1 Tablet by mouth 2 times a day with morning and evening meals. 180 Tablet 1 Trelegy Ellipta 100-62.5-25 MCG/ACT Aerosol Powder Breath Activated (Mtursneggdd-Qzxrwhbshtzo-Lrcwiidplb) Inhale 1 Puff by mouth in the morning. 180 Blister Dosing Unit 1 Doptelet 20 MG Oral Tablet (Avatrombopag Maleate) Take 20 mg by mouth daily except for Monday andMonday. 30 Tablet 4 Eliquis 2.5 MG Oral Tablet (Apixaban) TAKE 1 TABLET IN THE MORNING AND TAKE 1 TABLET BEFORE [id number] Tablet 1 Metoprolol Succinate ER 50 MG Oral Tablet Extended Release 24 Hour (toPROL XL) TAKE 1 TABLET IN THEMORNING AND TAKE 1 TABLET BEFORE BEDTIME 180 Tablet 1 Furosemide 20 MG Oral Tablet (Lasix) TAKE 1 TABLET EVERY MORNING 90 Tablet 1 No current facility-administered medications for this visit. No past medical history on file. Past Surgical History: Procedure Laterality Date FACE/SCALP SUBQ TUMOR REMOVAL, 2 CM OR MORE N/A 07/28/2023 EXCISION FACE/SCALP SUBQ TUMOR, 2 CM OR MORE performed by Paula Callahan MD at OR [facility] Review of patient's allergies indicates: Allergen [...] date: 1973 Quit date: 1978 Years since quittin.9 Passive exposure: Never Smokeless tobacco: Never Vaping Use Vaping status: Never Used Substance and Sexual Activity Alcohol use: Never Drug use: Never Sexual activity: Not on file Other Topics Concern Not on file Social History Narrative Not on file Social Needs Financial Resource Strain: Low Risk (05/29/2024) Financial Resource Strain Do you have any trouble paying for your medications, or do you think you might in the future? (Adult - for ages 18 years and over): No Does your family have trouble paying for medicine? (Household - for ages 0-17 years): Not on file Food Insecurity: No Food Insecurity (05/29/2024) Food Insecurity Do you need food for this week? (Adult - for ages 18 years and over): No Are you able to get enough food for your family? (Household - for ages 0-17 years): Not on file Does your family need food this week? (Household - for ages 0-17 years): Not on file Do you always have enough food for your family? (Household - for ages 0-17 years): Not on file Transportation Needs: No Transportation Needs (05/29/2024) Transportation Needs Do you have trouble getting a ride to medical visits or work? (Adult - for ages 18 years and over):Not on file Does your family have a hard time getting a ride to doctors visits? (Household - for ages 0-17 years): Not on file Has lack of transportation kept you from medical appointments, meetings, work, or from getting things needed for daily living? Check all that apply. (Adult - for ages 18 years and over): No Do you (or your family) have trouble finding or paying for a ride (transportation)? (Household - for ages 0-17 years): Not on file Social Connections: Socially Integrated (05/29/2024) Social Connections How often do you feel lonely or isolated from those around you? (Adult - for ages 18 years and over): Never Housing Stability: Low Risk (05/29/2024) Housing Stability Do you currently live in a nursing home or have no steady place to sleep at night? (Adult - for ages 18 years and over): No Do you think you are at risk of becoming homeless? (Adult - for ages 18 years and over): Not on file Does your family worry about paying for your home or becoming homeless? (Household - for ages 0-17 years): Not on file Are you homeless or worried that you might be in the future? (Adult - for ages 18 years and over): No Are you (or your family) homeless or worried that you might be in the future? (Household - for ages0-17 years): Not on file Objective There were no vitals taken for this visit. complete review of systems negative General: alert and oriented x3 female, no acute distress, appears currently stated age, pleasant, well nourished Skin: Right upper extremity including thumb does not reveal any erythema, ecchymosis, abrasion, laceration, skin breakdown otherwise Neurovascular: Right upper extremity reveals distal pulses +2, capillary refill is under 2 seconds,good sensation light touch, +5 rug measurer strength, axillary median ulnar radial nerve assess fully intact Musculoskeletal: Exam of the right hand including the thumb reveals tenderness at the A1 zachary of the right thumb. There is a palpable localized area of swelling that may potentially represent thickening of the flexor tendon verses a tenosynovial cyst that has exacerbating and causing her trigger thumb. There is no tenderness of the IP joint. All surrounding tendinous structures appear to be intact. The MCP, CMC and snuffbox nontender. Palpable and visual triggering identified. Radiographs deferred ASSESSMENT/PLAN: Trigger thumb, right thumb (Primary) Impression: Right trigger thumb Plan: Today 's findings were discussed with the patient. They were educated regarding their diagnosis. Multiple treatment options discussed and agreed upon, including proceeding today with a corticosteroid injection as the patient has discussed and agreed upon, consent and time-out obtained and performed today. The patient has agreed and signed off on the risks and rewards of proceeding with a steroid injection today. The risks were discussed and are did, but not limited to localized pain reaction, blood or nerve vessel injury, tendon injury, bleeding, infection, hyperglycemia. The patient isgoing to call the office in 2 weeks to update on results. She is aware failure to improve symptoms I would refer to our surgical team for discussion and determination of candidacy for trigger thumb release. Again, patient aware and in agreement and willing to proceed accordingly. The patient has noother questions or concerns. Pleased with today 's care. Call sooner if needed. Patient instructed to call or return to clinic for fever or warmth and redness at injection site for potential infection. Patient also advised as to potential for steroid flare reaction including increased pain and redness at injection site which should be treated with ice and resolve within 24 hours. Hand/Upper Extremity Injection/Arthrocentesis: R thumb A1 for trigger finger on 06/27/2024 2:18 PM Indications: pain and tendon swelling Details: 25 G needle, volar approach Medications: (Triamcinolone lidocaine) Outcome: tolerated well, no immediate complications Procedure, treatment alternatives, risks and benefits explained, specific risks discussed. Consent was given by the patient. Immediately prior to procedure a time out was called to verify the correctpatient, procedure, equipment, clerical support and site/side marked as required. Patient was prepped and draped in the usual sterile fashion. Strict caution utilized to avoid injecting directly into the the flexor tendon structures. There was no increased resistance or hesitancy with infiltration of medicine and fluid materials. Free-flowing, patient tolerated well, hemostasis achieved Band-Aid applied. This chart was completed in part utilizing [employer] Speech Voice Recognition Software. Grammatical errors, random word insertions, prounoun errors, and incomplete sentences are an occasional consequence of this system due to software limitations, ambient noise, and hardware issues. Any formal questions or concerns about the content, text, or information contained within the body of this dictation should be directly addressed to the provider for clarification. Adarsh Quevedo PA-C documented in this encounter Nursing Notes * Tracy Pathak CMA - 06/27/2024 1:55 PM EST Pt presents for trigger thumb of Maria D Gonzales CMA documented in this encounter Plan of Treatment Upcoming Encounters Date Type Department Care Team (Late st Contact Info) Description 07/10/2024 1:30 PM EST Office Visit Hematology/Oncology [facility] [address] [place] [phone] Ama Maldonado, LOLITA [address] [place] [address] 07/31/2024 10:20 AM EST Office Visit Pulmonary Medicine, [facility] [address] [place], [place] [id number] Enrique Fernandez MD [address] [place] [address] 08/09/2024 9:00 AM EST Pharmacy Pharmacy Hematology Oncology [facility] [address] [place] [address] [facility] Hem/Onc [address] [place] [address] Health Maintenance Due Date Last Done Comments DTap/Tdap Vaccines (1 - Tdap) 09/29/1954 Albumin/Creatinine Ratio 05/11/2024 05/11/2023, 07/24 Adult Wellness Visit 01/23/2025 01/24/2024 Depression Screening 05/29/2025 05/29/2024 O2 ASSESSMENT COMPLETED IN PAST YEAR FOR COPD 05/29/2025 05/29/2024 CKD HGB USE SMARTSET 75896 06/10/202506/10, 06/10/2024, 05/10/2024, Additional history exists CKD PHOS USE SMARTSET 05329 06/10/2025 06/10/2024, 0 11/10/2022 DXA Scan 12/07/2032 12/07/2022 Alpha-1 Antitrypsin Completed [...] Procedure Name Priority Date/Time Associated Diagnosis Comments IA INJECTION 1 TENDON SHEATH/LIGAMENT APONEUROSIS Routine 06/27/2024 2:18 PM EST Trigger thumb, right thumb documented in this encounter Results * IA INJECTION 1 TENDON SHEATH/LIGAMENT APONEUROSIS (06/27/2024 2:18 PM EST) Narrative Adarsh Quevedo PA-C - 06/27/2024 2:18 PM EST Adarsh Quevedo PA-C 06/27/2024 2:20 PM Hand/Upper Extremity Injection/Arthrocentesis: R thumb A1 for trigger finger on 06/27/2024 2:18 PM Indications: pain and tendon swelling Details: 25 G needle, volar approach Medications: (Triamcinolone lidocaine) Outcome: tolerated well, no immediate complications Procedure, treatment alternatives, risks and benefits explained, specific risks discussed. Consent was given by the patient. Immediately prior to procedure a time out was called to verify the correct patient, procedure, equipment, clerical support and site/side marked as required. Patient was prepped and draped in the usual sterile fashion. Adarsh Quevedo PA-C PROCDOC FORM Final R esult documented in this encounter Visit Diagnoses Diagnosis Trigger thumb, right thumb- Primary documented in this encounter Administered Medications Inactive Administered Medications - up to 3 most recent administrations Medication Order MAR Action Action Date Dose Rate Site lidocaine 1% 1 mL - triamcinolone acetonide 40 mg/mL 1 mL inj 2 mL 2 mL, Injection, ONCE, On Mylene 06/27/24 at 1500, For 1 dose, Lidocaine 1% 1mL Triamcinolone Acetonide 40 mg/mL 1 mL (Final concentration = 20 mg/mL) REFRIGERATE and SHAKE WELLIndications:Trigger thumb, right thumb Given 06/27/2024 2:17 PM EST 2 mL Hand Right documented in this encounter Care Teams Barmaid Relationship Specialty Start Date End Date Toshia Reynaga DO [address] [facility] [place] [address] PCP - General Family Medicine 12/07/22 documented as of this encounter
--- OUTSIDE RECORDS SUMMARY | 2024-09-05 22:32 | External Medical Summary | Summary of Care ---
Author Name Unknown Organization [facility] Address [address] [place] [address] Phone [phone] Care Team Providers Care Intermission Coordinator Name Role Phone Toshia Reynaga DO Primary Care Provider [phone] Reason for Visit * Reason Comments Follow Up COPD * Evaluate & Treat - Unlimited Visits (Within 10 days (routine)) - Closed Specialty Diagnoses / Procedures Referred By Felix t Referred To Contact Pulmonary Diseases / Pulmonary Diagnoses Chronic respiratory failure with hypoxia (HCC) Toshia Reynaga DO [address] [place] [address] Phone: tel: fax: Referral ID Status Reason Start Date Expiration Date V isits Requested Visits Authorized [id number] Closed Specialty Services Required 01/24/[phone] Encounter Details Date Type Department Care Team (Late st Contact Info) Description 01/29/2024 2:20 PM EDT Office Visit Pulmonary Medicine, [facility] [address] [facility] [place] [address] Enrique Fernandez MD [address] [place] [id number] COPD, very severe (HCC)*; Chronic respiratory failure with hypoxia (HCC) Allergies Active Allergy Reactions Criticality Noted Date Comments Lisinopril Other (Please comment) 05/06/2022 Burning in throat documented as of this encounter (statuses as of 08/07/2024) Medications Cyanocobalamin 1000 MCG Oral Tablet Take 1 Tablet by mouth in the morning. Active Vitamin D3 125 MCG (5000 UT) Oral Capsule Take 1 Capsule by mouth in the morning. Active Polyethylene Glycol 3350 17 GM/SCOOP Oral Powder (MiraLax)Indica tions:Constipat ion, unspecified constipation type Take by mouth 17 g as needed for Constipation. Dissolve one heaping tablespoon in 8 ounces of water or juice. 507 g 3 022 Active Acetaminophen 500 MG Oral Tablet (Tylenol) Take 1 Tablet by mouth every 6 hours as needed. Active Spacer/Aero-Hol ding Chambers Device Use with inhaler. 1 Each 024 Active Albuterol Sulfate (2.5 MG/3ML) 0.083% Inhalation Nebulization Solution (Proventil) Inhale 1 Vial via nebulizer every 4 hours as needed for Wheezing. 3 mL 1 024 Active Albuterol Sulfate HFA 108 (90 Base) MCG/ACT Inhalation Aerosol SolutionIndicat ions:COPD, very severe (HCC) Inhale 2 Puffs by mouth every 4 hours as needed for Cough, Shortness of Breath or Wheezing. 54 g 3 024 Active amLODIPine Besylate 5 MG Oral Tablet (Norvasc) Take 1 Tablet by mouth in the morning. 025 Active Azithromycin 500 MG Oral Tablet (Zithromax) take 1 tablet by mouth once daily for 3 days 025 Active predniSONE 10 MG Oral Tablet (Deltasone) take 4 tablets by mouth on day 1 then take 3 tablets by mouth on ... (REFER TO PRESCRIPTION NOTES). 025 Active Trelegy Ellipta 100-62.5-25 MCG/ACT Aerosol Powder Breath Activated (Fluticasone-Um eclidinium-Jeremy nterol) Inhale 1 Puff by mouth in the morning. 180 Blister Dosing Unit 1 024 2023 Discontinued(R efill) Avatrombopag Maleate 20 MG Oral Tablet Take 1 tablet by mouth in the morning. 30 Tablet 5 4 4:03 PM EDT 024 2023 Discontinued(R efill) Ferrous Sulfate 325 (65 Fe) MG Oral Tablet Delayed Release Take 1 Tablet by mouth 2 times a day with morning and evening meals. 024 2023 Discontinued(R efill) Apixaban 2.5 MG Oral Tablet (Eliquis) Take 1 Tablet by mouth in the morning and 1 Tablet before bedtime. 180 Tablet 1 024 2023 Discontinued Metoprolol Succinate ER 50 MG Oral Tablet Extended Release 24 Hour (toPROL XL) Take 1 Tablet by mouth in the morning and 1 Tablet before bedtime. 180 Tablet 1 024 2023 Discontinued Furosemide 20 MG Oral Tablet (Lasix) Take 1 Tablet by mouth in the morning. 90 Tablet 1 024 2023 Discontinued Azithromycin 250 MG Oral Tablet (Zithromax)Sindy cations:Chronic respiratory failure with hypoxia (HCC) Take 2 tabs by mouth on the first day, then 1 tab daily on days two through five 6 Tablet 024 2023 Discontinued(M edication List Clean Up) Hospital, Clinic, or Other Facility Administered Medication Ordered Dose Route Frequency Start Date End Date Status Albuterol Sulfate (Proventil) (2.5 MG/3ML) 0.083% inhalation solution 2.5 mgIndications:COPD, severity to be determined (HCC) 2.5 mg NEBULIZER ONCE PRN 02/17/2023 02/17/2024 Ended documented as of this encounter (statuses as of 08/07/2024) Active Problems Problem Noted Date Diagnosed Date Atrial fibrillation 01/24/2024 Chronic respiratory failure with hypoxia Moderate pulmonary hypertension 09/18/2023 COPD, group B, [...] as of this encounter (statuses as of 08/07/2024) Resolved Problems Problem Noted Date Diagnosed Date Resolved Date Chronic obstructive pulmonary disease 05/11/2023 06/08/2023 Overview: Per COPD GOLD Classification documented as of this encounter (statuses as of 08/07/2024) Immunizations No known immunizationsdocumented as of this [...] PM EST documented as of this encounter Last Filed Vital Signs Vital Sign Reading Time Taken Comments Blood Pressure 140/60 01/29/2024 2:31 PM EDT Pulse 58 01/29/2024 2:31 PM EDT Temperature 35.7 C (96.3 F) 01/29/2024 2:31 PM ED T Respiratory Rate 16 01/29/2024 2:31 PM EDT Oxygen Saturation 98% 01/29/2024 2:31 PM EDT Inhaled Oxygen Concentration - - Weight 45.4 kg (100 lb) 01/29/2024 2:31 PM EDT Height 154.9 cm (5' 1") 01/29/2024 2:31 PM EDT Body Mass Index 18.89 01/29/2024 2:31 PM EDT documented in this encounter Progress Notes * Enrique Fernandez MD - 01/29/2024 3:12 PM EDT 01/29/2024 Pulmonary Medicine, [facility] [address] [facility] [place] [id number] Edilma Kennedy 1935 female 88 year old Attending Physician Documentation: 88-year-old female, 5 pack-year smoking history quit 1978, significant degree of secondhand smoke exposure, 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 Since last evaluation, patient describes stable respiratory symptoms status. Oximetry studies showed desaturation during nighttime, daytime rest and activity. 2 L nasal cannula oxygen for continuous use was ordered. Patient describes adequate compliance with home oxygen therapy. post hospital discharge pulmonary evaluation. Patient had been admitted to [facility] 09/21/2023 where she presented with cough and congestion with shortness of breath and worsening lower extremity edema. Patient was diagnosed with acute on chronic heart failure along with COPD exacerbation. Trace bilateral pleural effusions were noted,treated with nebulized bronchodilator therapy and diuresis with gradual improvement in respiratory status. Compliant with albuterol nebulizer/rescue inhaler, and Trelegy inhaler. Sedentary lifestyle with ambulation at home. Describes occasional productive cough. Review of historical pulmonary workup data shows [...] Neuro examination. Overall clinical picture consistent with CHF and COPD, and hypoxic respiratory failure with currently well-controlled symptoms status. Current Bronchodilator therapy will be continued with Trelegy along with continuation of nebulized albuterol therapy for better compliance. Pulmonary clinic follow-up assessment in 6 months. Patient was advised to contact the office with any change in respiratory symptoms status. 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 | For: Clinic Visit | Check-out note: chest in 1 year, f/u Pulmonary Nodules F/u 6 months Enrique Fernandez MD Subjective CC: Chief Complaint Patient presents with Follow Up COPD HPI: Nursing Notes: Alicia Espinoza LPN 01/29/24 1519 Signed Chief Complaint Patient presents with Follow Up COPD Interm History/Respiratory Symptoms Cough: yellow-mostly in the am Hemoptysis: no Sinus Symptoms: occ PND Hospitalizations: no ED Trips: no Triggers: no Nocturnal: propped up-bed rises CPAP/BiPAP/O2: O2 @ 2-3 lpm DME Supplier: [facility] Travel Screening Question 01/29/2024 2:32 PM EDT - Filed by Patient Do you have any of the following new or worsening symptoms? Cough Have you recently been in contact with someone who was sick? No / Unsure [facility] Cat Question 01/29/2024 2:37 PM EDT - Filed by Patient When do you become breathless? (1) I get short of breath when hurrying on level ground How frequently do you cough? (2) Do you have phlegm in your chest? (1) Is your chest tight? (0) - My chest does not feel tight at all How breathless do you become when walking up a hill or steps? (3) How limited are you doing activities at home? (3) How confident are you leaving home with your lung condition? (0) - I am confident leaving my home despite my condition How soundly do you sleep? (0) - I sleep soundly How much energy do you have? (2) Total MMRC Score (range: 0 - 4) 1 Total CAT Score (range: 0 - 40) 11 Myc Visit Accident Related Question Question 01/29/2024 2:37 PM EDT - Filed by Patient Is this visit related to an accident? (i.e work, motor vehicle) No Objective Filed Vitals: 01/29/24 1431 BP: 140/60 Pulse: 58 Resp: 16 Temp: 35.7 C (96.3 F) TempSrc: Tympanic SpO2: 98% Weight: 45.4 kg (100 lb) Height: 1.549 m (5' 1") Exam: [...] patient: XR CHEST 2 VIEWS Result Date: 11/29/2023 IMPRESSION Emphysema without discrete evidence of pneumonia or other acute finding. XR CHEST 2 VIEWS Result Date: 09/13/2023 [...] were discussed with the patient. HOME MEDICATIONS: Azithromycin 250 MG Oral Tablet (Zithromax) Apixaban 2.5 MG Oral Tablet (Eliquis) Furosemide 20 MG Oral Tablet (Lasix) Metoprolol Succinate ER 50 MG Oral Tablet Extended Release 24 Hour (toPROL XL) Ferrous Sulfate 325 (65 Fe) MG Oral Tablet Delayed Release Avatrombopag Maleate 20 MG Oral Tablet Albuterol Sulfate HFA 108 (90 Base) MCG/ACT Inhalation Aerosol Solution Trelegy Ellipta 100-62.5-25 MCG/ACT Aerosol Powder Breath Activated (Knhhurprxro-Lbxtulxrlndp-Gapkryvsfs) Albuterol Sulfate (2.5 MG/3ML) 0.083% Inhalation Nebulization Solution (Proventil) Spacer/Aero-Holding Chambers Device Acetaminophen 500 MG Oral Tablet (Tylenol) Cyanocobalamin 1000 MCG Oral Tablet Polyethylene Glycol 3350 17 GM/SCOOP Oral Powder (MiraLax) Vitamin D3 125 MCG (5000 UT) Oral Capsule Albuterol Sulfate (Proventil) (2.5 MG/3ML) 0.083% inhalation [...] performed by Paula Callahan MD at OR [facility] Social History Socioeconomic History Marital status: Tobacco Use Smoking status: Former Current packs/day: 0.00 Average packs/day: 0.3 packs/day for 5.0 years (1.3 ttl pk-yrs) Types: Cigarettes Start date: 1973 Quit date: 1978 Years since quittin.5 Passive exposure: Never Smokeless tobacco: Never Vaping Use Vaping status: Never Used Substance and Sexual Activity Alcohol use: Never Drug use: Never Social Determinants of Health Social Connections No family history on file. Review of patient's allergies indicates: Allergen Reactions Lisinopril Other (Please comment) Burning in throat documented in this encounter Nursing Notes * Alicia Espinoza LPN - 01/29/2024 2:40 PM EDT Chief Complaint Patient presents with Follow Up COPD Interm History/Respiratory Symptoms Cough: yellow-mostly in the am Hemoptysis: no Sinus Symptoms: occ PND Hospitalizations: no ED Trips: no Triggers: no Nocturnal: propped up-bed rises CPAP/BiPAP/O2: O2 @ 2-3 lpm DME Supplier: [facility] Travel Screening Question 01/29/2024 2:32 PM EDT - Filed by Patient Do you have any of the following new or worsening symptoms? Cough Have you recently been in contact with someone who was sick? No / Unsure [facility] Cat Question 01/29/2024 2:37 PM EDT - Filed by Patient When do you become breathless? (1) I get short of breath when hurrying on level ground How frequently do you cough? (2) Do you have phlegm in your chest? (1) Is your chest tight? (0) - My chest does not feel tight at all How breathless do you become when walking up a hill or steps? (3) How limited are you doing activities at home? (3) How confident are you leaving home with your lung condition? (0) - I am confident leaving my home despite my condition How soundly do you sleep? (0) - I sleep soundly How much energy do you have? (2) Total MMRC Score (range: 0 - 4) 1 Total CAT Score (range: 0 - 40) 11 Myc Visit Accident Related Question Question 01/29/2024 2:37 PM EDT - Filed by Patient Is this visit related to an accident? (i.e work, motor vehicle) No documented in this encounter Miscellaneous Notes * Addendum Note - Ani Orozco LPN - 08/07/2024 9:17 AM ESTAddended by: ANI OROZCO on: 08/07/2024 09:17 AM Modules accepted: Orders documented in this encounter Plan of Treatment Upcoming Encounters Date Type Department Care Team (Late st Contact Info) Description 08/07/2024 1:40 PM EST Office Visit Pulmonary Medicine, [facility] [address] [facility] [place] [address] Enrique Fernandez MD [address] [facility] [place] [address] 08/09/2024 9:00 AM EST Pharmacy Pharmacy Hematology Oncology [facility]3] [address] [place] [address] [facility], [facility] Hem/Onc [address] [place] [address] 10/10/2024 11:00 AM EDT Laboratory Laboratory [facility] [address] [facility] [place] [phone] [facility] [address] [place] [address] 10/17/2024 9:30 AM EDT Office Visit Hematology/Oncology [facility] [place] [address] [facility] [place] [id number] Zeeshan Choi MD [address] [facility] [place] [address] Health Maintenance Due Date Last Done Comments DTap/Tdap Vaccines (1 - Tdap) 09/29/1954 Albumin/Creatinine Ratio 05/11/2024 05/11/2023, 07/24 *NEPHROLOGY REFERRAL DUE TO RESISTANT HTN 07/13/2024 Adult Wellness Visit 01/23/2025 01/24/2024 Depression Screening 05/29/2025 05/29/2024 CKD PHOS USE SMARTSET 59641 06/10/2025 06/10/2024, 0 11/10/2022 O2 ASSESSMENT COMPLETED IN PAST YEAR FOR COPD 07/10/2025 07/10/2024 CKD HGB USE SMARTSET 39071 07/31/202507/31, 07/10/2024, 07/10/2024, Additional history exists DXA Scan 12/07/2032 12/07/2022 [...] encounter Visit Diagnoses Diagnosis COPD, very severe (HCC)- Primary Chronic airway obstruction, not elsewhere classified Chronic respiratory failure with hypoxia (HCC) Chronic respiratory failure documented in this encounter Care Teams Intermission Coordinator Relationship Specialty Start Date End Date Toshia Reynaga DO [address] [place] [address] PCP - General Family Medicine 12/07/22 documented as of this encounter
--- OUTSIDE RECORDS SUMMARY | 2024-09-05 22:32 | External Medical Summary | Summary of Care ---
Author Name Unknown Organization [facility] Address [address] [place] [address] Phone [phone] Care Team Providers Care Horse Stud Worker Name Role Phone Toshia Reynaga DO Primary Care Provider [phone] Reason for Visit * Reason Comments Outpatient Testing Encounter Details Date Type Department Care Team (Late st Contact Info) Description 06/27/2024 2:10 PM EST Laboratory Laboratory, [facility] [address] [place] [address] [facility] [address] [place] [address] Chronic ITP (idiopathic thrombocytopenia) ([facility]) Allergies Active Allergy [...] 07/10/2024 1:30 PM EST Office Visit Hematology/Oncology [facility] [place] [address] Ama Maldonado CRNP [address] [place] [address] 07/31/2024 10:20 AM EST Office Visit Pulmonary Medicine, [facility] 132 [facility] [place] [address] Enrique Fernandez MD [address] [place] [phone] 08/09/2024 9:00 AM EST Pharmacy Pharmacy Hematology Oncology [facility] [address] [place] [address] Gm, [facility] Hem/Onc [address] [place] [address] Pending Results Name Type Priority Associated Diagnoses Date /Time CBC WITH WBC DIFFERENTIAL Lab STAT Chronic ITP (idiopathic thrombocytopenia) (HCC) 06/27/2024 2:30 PM EST CBC Lab STAT Chronic ITP (idiopathic thrombocytopenia) (HCC) 06/27/2024 2:30 PM EST DIFFERENTIAL, AUTOMATED Lab STAT Chronic ITP (idiopathic thrombocytopenia) (HCC) 06/27/2024 2:30 PM EST Health Maintenance Due Date Last Done Comments DTap/Tdap Vaccines (1 - Tdap) 09/29/1954 Albumin/Creatinine Ratio 05/11/2024 05/11/2023, 07/24 Adult Wellness Visit 01/23/2025 01/24/2024 Depression Screening 05/29/2025 05/29/2024 O2 ASSESSMENT COMPLETED IN PAST YEAR FOR COPD 05/29/2025 05/29/2024 CKD HGB USE SMARTSET 75524 06/10/202506/10, 06/10/2024, 05/10/2024, Additional history exists CKD PHOS USE SMARTSET 76093 06/10/2025 06/10/2024, 0 11/10/2022 DXA Scan 12/07/2032 [...] purpura documented in this encounter Care Teams Horse Stud Worker Relationship Specialty Start Date End Date Toshia Reynaga DO [address] [place] [id number] PCP - General Family Medicine 12/07/22 documented as of this encounter
--- OUTSIDE RECORDS SUMMARY | 2024-09-05 22:32 | External Medical Summary | Summary of Care ---
Author Name Unknown Organization [facility] Address [address] [place] [address] Phone [phone] Care Team Providers Care Consumer Insights Specialist Name Role Phone Toshia Reynaga DO Primary Care Provider [phone] Reason for Visit * Reason Comments Follow Up 3 month follow up Encounter Details Date Type Department Care Team (Late st Contact Info) Description 07/10/2024 1:30 PM EST Office Visit Hematology/Oncology [facility] [address] [place] [address] Ama Maldonado, LOLITA [address] [place] [address] Chronic ITP (idiopathic thrombocytopenia) (HCC)*; Anemia, unspecified type Allergies Active Allergy Reactions Criticality Noted Date Comments Lisinopril Other (Please comment) 05/06/2022 Burning in throat documented as of this encounter (statuses as of 07/25/2024) Medications Cyanocobalamin 1000 MCG Oral Tablet Take [...] as of this encounter (statuses as of 07/25/2024) Active Problems Problem Noted Date Diagnosed Date [...] as of this encounter (statuses as of 07/25/2024) Resolved Problems Problem Noted Date Diagnosed Date Resolved Date Chronic obstructive pulmonary disease 05/11/2023 06/08/2023 Overview: Per COPD GOLD Classification documented as of this encounter (statuses as of 07/25/2024) Immunizations No known immunizationsdocumented as of this [...] Sign Reading Time Taken Comments Blood Pressure 160/56 07/10/2024 1:38 PM EST Pulse 53 07/10/2024 1:38 PM EST Temperature 36.2 C (97.1 F) 07/10/2024 1:38 PM ES T Respiratory Rate - - Oxygen Saturation 95% 07/10/2024 1:38 PM EST Inhaled Oxygen Concentration - - Weight 51.2 kg (112 lb 12.8 oz) 07/10/2024 1:38 PM EST Height - - Body Mass Index 21.31 05/29/2024 12:56 PM EST documented in this encounter Progress Notes * Ama Maldonado CRNP - 07/10/2024 1:28 PM EST Hematology/Oncology Outpatient Clinic note [facility] [address] [place] [address] Name: Edilma Kennedy Date: 07/10/2024 CHIEF COMPLAINT: Edilma Kennedy is a 88 year old female patient here today for f/u visit. She is a patient of Dr. Choi. From Patient chart confirmed history with patient. From Dr. Zeeshan Choi note 07/04/23 HEMATOLOGY/ONCOLOGY DIAGNOSIS: Chronic ITP Normocytic anemia Current treatment: - Avatrombopag (Doptelet). -she is on it since November 2019, now the dose increased to 40 mg daily since 08/09/2022. Background history: Patient with PMH including HTN and HLD. Previous patient of [place], [place]. Followed for chronic ITP. Reviewed available [...] all other days. Patient moved back to [place] January 23. Patient currently is taking 20 mg daily as she dropped the dose down on her own three days ago as she was afraid she would run out of medication prior to this appointment. Patien t very concerned about her weight loss. This was also being worked up in [place]. Total has lost almost 100 pounds unintentionally [...] to be checked but cannot see results. HISTORY OF PRESENT ILLNESS: Edilma Kennedy is a 88 year old female with a history as outlined above. Currently here for f/u visit today unaccompanied without oxygen. She states " I am really feeling good" She is taking Doptelet M-F. She states that she tolerates it fine. She is also taking iron twice a day. She is on Eliquis. No excessive bruising or bleeding. She states that she is feeling well. . No chest pain or shortness of breath. Rarely she will feel a quick twinge in upper chest. No reported abdominal pain, cramping diarrhea. Mild constipation at times. No syncope or near syncope. No urinary issues except frequency Recently more allergy symptoms like sneezing.. Son reports that she stays up very late into thenight. She says that very rarely she will see "men in the room" No other types of hallucinations or confusion noted. No recent infections. No past medical history on file. Past Surgical History: Procedure Laterality Date FACE/SCALP SUBQ TUMOR REMOVAL, 2 CM OR MORE N/A 07/28/2023 EXCISION FACE/SCALP SUBQ TUMOR, 2 CM OR MORE performed by Paula Callahan MD at OR [facility] Social History Socioeconomic History Marital status: Spouse [...] Stability Do you currently live in a group home or have no steady place to [...] - for ages0-17 years): Not on file Review of patient's allergies [...] Ellipta 100-62.5-25 MCG/ACT Aerosol Powder Breath Activated (Muzftgnbfsl-Qdgrgpladogh-Gzxaibehbw) Inhale 1 Puff by mouth in the morning. 180 Blister Dosing Unit 1 Doptelet 20 MG Oral Tablet (Avatrombopag Maleate) Take 20 mg by mouth daily except for Monday andMonday. 30 Tablet 4 Eliquis 2.5 MG Oral Tablet (Apixaban) TAKE 1 TABLET IN THE MORNING AND TAKE 1 TABLET BEFORE [id number] Tablet 1 Metoprolol Succinate ER 50 MG Oral Tablet Extended Release 24 Hour (toPROL XL) TAKE 1 TABLET IN THEMORNING AND TAKE 1 TABLET BEFORE BEDTIME 180 Tablet 1 Furosemide 20 MG Oral Tablet (Lasix) TAKE 1 TABLET EVERY MORNING 90 Tablet 1 No current facility-administered medications for this visit. REVIEW OF SYSTEMS: Review of Systems Constitutional: Negative for appetite change, chills and fever. HENT: Negative for mouth sores and trouble swallowing. Respiratory: Positive for cough. Negative for shortness of breath. Mild cough and sneezing Cardiovascular: Negative for chest pain and palpitations. Gastrointestinal: Positive for constipation. Negative for abdominal pain, diarrhea, nausea and vomiting. Genitourinary: Positive for frequency. Negative for difficulty urinating. Musculoskeletal: Negative for back pain and myalgias. Skin: Negative for rash. Neurological: Negative for dizziness, headaches, light-headedness and numbness. Psychiatric/Behavioral: Negative for sleep disturbance. OBJECTIVE: Filed Vitals: 07/10/24 1338 BP: 160/56 Pulse: 53 Temp: 36.2 C (97.1 F) TempSrc: Tympanic SpO2: 95% Weight: 51.2 kg (112 lb 12.8 oz) Wt Readings from Last 5 Encounters: 07/10/24 51.2 kg (112 lb 12.8 oz) 05/29/24 51.9 kg (114 lb 6.4 oz) 04/10/24 49.8 kg (109 lb 12.8 oz) 03/08/24 46.6 kg (102 lb 12.8 oz) 02/14/24 44.5 kg (98 lb) PHYSICAL EXAM: ECOG: Performance Status 0 = 100% Normal Activity General Appearance: Normal - Healthy appearing patient in no acute distress HEENT: Normal - No oral or pharyngeal masses, ulceration or thrush noted, no sinus tenderness Lymph Nodes: Normal - No palpable lymph nodes in the neck or supraclavicular areas Lungs/Thorax: Normal - Clear to auscultation Heart: Normal - Regular rate and rhythm, normal S1, S2, no appreciable murmurs, rubs, gallops Pulses/Extremities: Normal - 2+ throughout and symmetrical, no edema Abdomen: Normal - Soft, nontender, bowel sounds present, no appreciable hepatosplenomegaly, no palpable masses Musculoskeletal: Normal - No pain on palpation over bony prominence, no joint or bony deformity Neurologic: Normal - Grossly intact LABS: Results for orders placed or performed in visit on 07/10/24 CBC Result Value Ref Range WBC 8.94 4.00 - 10.80 K/uL RBC 3.37 3.85 - 5.15 M/uL HGB 10.4 (L) 12.0 - 15.3 g/dL HCT 32.5 (L) 36.0 - 45.2 % MCV 96.4 81.5 - 97.5 fL MCH 30.9 27.0 - 34.0 pg MCHC 32.0 32.0 - 36.0 g/dL RDW 13.8 11.5 - 15.5 % PLT 397 140 - 400 K/uL MPV 9.6 6.6 - 11.1 fL DIFFERENTIAL, AUTOMATED Result Value Ref Range WBC 8.94 4.00 - 10.80 K/uL Neutrophils % 68.8 40.0 - 75.0 % Lymphocytes % 20.8 18.0 - 42.0 % Monocytes % 8.2 1.0 - 11.0 % Eosinophils % 1.6 0.0 - 6.0 % Basophils % 0.6 0.0 - 2.0 % Absolute Neutrophils 6.16 1.80 - 7.70 K/uL Absolute Lymphocytes 1.86 1.00 - 4.80 K/ul Absolute Monocytes 0.73 0.00 - 1.10 K/uL Absolute Eosinophils 0.14 0.00 - 0.70 K/uL Absolute Basophils 0.05 0.00 - 0.20 K/uL Labs stable Reviewed with pt. Mild anemia continues ASSESSMENT: Chronic ITP, normocytic anemia - labs very stable on current dose. PLAN: She will continue - Avatrombopag (Doptelet) 20 mg once a day Monday-Monday Will check CBCD every monthly. Continue Eliquis Rtc 3 months MD with cbcd, cmp Appreciate MTM assistance Call as needed LOLITA Yoon documented in this encounter Nursing Notes * Nichole Bland, ALEXANDER - 07/10/2024 1:36 PM EST Patient identifed by name and birthdate Do you have any concerns about pain management for today's visit? No Living Will or Advance Directive for Health Care as noted on the problem list. [facility] is a way you can talk to your provider on line through e-mail. Would you like to sign up? I can activate it for you? ALREADY ACTIVE Filed Vitals: 07/10/24 1338 BP: 160/56 Pulse: 53 Temp: 36.2 C (97.1 F) TempSrc: Tympanic SpO2: 95% Weight: 51.2 kg (112 lb 12.8 oz) Patient was instructed to not get up [...] PM EST Office Visit Pulmonary Medicine, [facility] [address] [facility] [place] [address] Enrique Fernandez MD [address] [place] [facility] [place] [address] 08/09/2024 9:00 AM EST Pharmacy Pharmacy Hematology Oncology [facility] [address] [place] [address] [facility], [facility] Hem/Onc [address] [place] [address] 10/10/2024 11:00 AM EDT Laboratory Laboratory [facility] [place] [address] [place] [phone] [facility] [place] [address] [address] [place] [address] 10/17/2024 9:30 AM EDT Office Visit Hematology/Oncology [facility] [place] [address] [place] [address] Zeeshan Choi MD [address] [facility] [place] [address] Health Maintenance Due Date Last Done Comments DTap/Tdap Vaccines (1 - Tdap) 09/29/1954 Albumin/Creatinine Ratio 05/11/2024 05/11/2023, 07/24 *NEPHROLOGY REFERRAL DUE TO RESISTANT HTN 07/13/2024 Adult Wellness Visit 01/23/2025 01/24/2024 Depression Screening 05/29/2025 05/29/2024 CKD PHOS USE SMARTSET 26598 06/10/2025 06/10/2024, 0 11/10/2022 CKD HGB USE SMARTSET 64126 07/10/202507/10, 07/10/2024, 06/27/2024, Additional history exists O2 [...] Primary Immune thrombocytopenic purpura Anemia, unspecified type documented in this encounter Care Teams Consumer Insights Specialist Relationship Specialty Start Date End Date Toshia Reynaga DO [address] [place] [address] PCP - General Family Medicine 12/07/22 documented as of this encounter
--- OUTSIDE RECORDS SUMMARY | 2024-09-05 22:32 | External Medical Summary | Summary of Care ---
Author Name Unknown Organization [facility] Address [address] [place] [address] Phone [phone] Care Team Providers Care Senior Consulting Manager Name Role Phone Ronnell Toshiatheodore Paul DO Primary Care Provider [phone] Reason for Visit * Reason Comments NEW PATIENT Pt presents for Trig josefa thumb of R hand * Evaluate & Treat - Unlimited Visits (Within 10 days (routine)) - Authorized Specialty Diagnoses / Procedures Referred By Felix t Referred To Contact Orthopaedic Surgery / Orthopedics Diagnoses Trigger thumb of right hand Constantino Syed MD [address] [place] [address] Phone: tel: fax: Referral ID Status Reason Start Date Expiration Date Visits Requested Visits Authorized [id number] Authorized Specialty Services Required 05/29/[phone] Encounter Details Date Type Department Care Team (Late st Contact Info) Description 06/27/2024 2:00 PM EST Office Visit Orthopaedics [facility] [address] [place] [address] Adarsh Quevedo PA-C [address] [place] [address] Trigger thumb, right thumb* Allergies Active Allergy [...] Ellipta 100-62.5-25 MCG/ACT Aerosol Powder Breath Activated (Awpqgwlqqkb-Vtifrybqyfgn-Jjdhzhbkgx) Inhale 1 Puff by mouth in the morning. 180 Blister Dosing Unit 1 Doptelet 20 MG Oral Tablet (Avatrombopag Maleate) Take 20 mg by mouth daily except for Monday andMonday. 30 Tablet 4 Eliquis 2.5 MG Oral Tablet (Apixaban) TAKE 1 TABLET IN THE MORNING AND TAKE 1 TABLET BEFORE [id number] Tablet 1 Metoprolol Succinate ER 50 MG [...] Paula Callahan MD at OR [facility] Review of patient's allergies indicates: Allergen [...] Stability Do you currently live in a senior care or have no steady place to sleep [...] under 2 seconds,good sensation light touch, +5 shank burnisher strength, axillary median ulnar radial nerve assess [...] called to verify the correctpatient, procedure, equipment, web support engineer and site/side marked as required. Patient was prepped and draped in the usual sterile fashion. Strict caution utilized to avoid injecting directly into the the flexor tendon structures. There was no increased resistance or hesitancy with infiltration of medicine and fluid materials. Free-flowing, patient tolerated well, hemostasis achieved Band-Aid applied. This chart was completed in part utilizing [employer] Speech Voice Recognition Software. Grammatical errors, random [...] 1:30 PM EST Office Visit Hematology/Oncology [facility] [address] [place] [phone] Ama Maldonado, LOLITA [address] [place] [address] 07/31/2024 10:20 AM EST Office Visit Pulmonary Medicine, [facility] [address] [place], [place] [phone] Enrique Fernandez MD [address] [place] [address] 08/09/2024 9:00 AM EST Pharmacy Pharmacy Hematology Oncology [facility] [address] [place] [address] [facility], [facility] Hem/Onc [address] [place] [address] Health Maintenance Due Date Last Done Comments DTap/Tdap Vaccines (1 - Tdap) 09/29/1954 Albumin/Creatinine Ratio 05/11/2024 05/11/2023, 07/24 Adult Wellness Visit 01/23/2025 01/24/2024 Depression Screening 05/29/2025 05/29/2024 O2 ASSESSMENT COMPLETED IN PAST YEAR FOR COPD 05/29/2025 05/29/2024 CKD HGB USE SMARTSET 06187 06/10/202506/10, 06/10/2024, 05/10/2024, Additional history exists CKD PHOS USE SMARTSET 69479 06/10/2025 06/10/2024, 0 11/10/2022 DXA Scan 12/07/2032 [...] Procedure Name Priority Date/Time Associated Diagnosis Comments SC INJECTION 1 TENDON SHEATH/LIGAMENT APONEUROSIS Routine 06/27/2024 2:18 PM EST Trigger thumb, right thumb documented in this encounter Results * SC INJECTION 1 TENDON SHEATH/LIGAMENT APONEUROSIS (06/27/2024 2:18 [...] to verify the correct patient, procedure, equipment, web support engineer and site/side marked as required. Patient was [...] Right documented in this encounter Care Teams Senior Consulting Manager Relationship Specialty Start Date End Date Toshia Reynaga DO [address] [facility] [place] [address] PCP - General Family Medicine 12/07/22 documented as of this encounter
--- OUTSIDE RECORDS SUMMARY | 2024-09-05 22:32 | External Medical Summary | Summary of Care ---
Author Name Unknown Organization [facility] Address [address] [place] [address] Phone [phone] Care Team Providers Care Equity Structurer Name Role Phone Toshia Reynaga DO Primary Care Provider [phone] Reason for Visit * Reason Comments Hospital Follow-Up [facility] 07/31- for dyspnea. Feels better now, uses oxygen at night. Encounter Details Date Type Department Care Team (Latest Contact Info) Description 08/12/2024 2:40 PM EST Office Visit Family Practice [facility] [address] [facility] [place] [address] Frederick Cervantes CRNP [address] [facility] [address] COPD, group B, by GOLD 2017 classification ([facility])*; Atrial fibrillation, unspecified type (HCC); Chronic ITP (idiopathic thrombocytopenia) (HCC); Chronic respiratory failure with hypoxia (HCC); Constipation, unspecified constipation type; HTN, goal below 140/90; Moderate pulmonary hypertension (HCC) Allergies Active Allergy Reactions Criticality Noted Date Comments Lisinopril Other (Please comment) 05/06/2022 Burning in throat documented as of this encounter (statuses as of 08/12/2024) Medications Cyanocobalamin 1000 MCG Oral Tablet Take [...] 1 Tablet by mouth in the morning. 01/10/202 5 Active documented as of this encounter (statuses as of 08/12/2024) Active Problems Problem Noted Date Diagnosed Date [...] as of this encounter (statuses as of 08/12/2024) Resolved Problems Problem Noted Date Diagnosed Date Resolved Date Chronic obstructive pulmonary disease 05/11/2023 06/08/2023 Overview: Per COPD GOLD Classification documented as of this encounter (statuses as of 08/12/2024) Immunizations No known immunizationsdocumented as of this [...] No 05/29/2024 Does the household have a [facility] source of income? (Household - for [...] Sign Reading Time Taken Comments Blood Pressure 140/56 08/12/2024 3:06 PM EST Pulse 65 08/12/2024 2:34 PM EST Temperature - - Respiratory Rate - - Oxygen Saturation 97% 08/12/2024 2:34 PM EST Inhaled Oxygen Concentration - - Weight 51.8 kg (114 lb 1.6 oz) 08/12/2024 2:34 P M EST Height 154.9 cm (5' 1") 08/12/2024 2:34 PM EST Body Mass Index 21.56 08/12/2024 2:34 PM EST documented in this encounter Progress Notes * Frederick Cervantes CRNP - 08/12/2024 3:18 PM EST Images from the original note were not included. Subjective Edilma Kennedy is a 88 year old female that presents for Hospital Follow-Up ([facility] 07/31-08/01 for dyspnea. Feels better now, uses oxygen at night. ) History of Present Illness The patient, with a history of lung disease requiring oxygen therapy and Eliquis for a blood disorder, presents after a recent hospital admission for an episode of breathlessness. She reports using oxygen therapy at night, but not during the day as she feels well and is able to perform her daily activities without difficulty. She has not experienced any further episodes of breathlessness since her hospital discharge. She also reports regular use of her nebulizer and inhaler (Trelegy) for her lung condition. The patient also mentions a blood disorder for which she is on Eliquis. She takes this medication daily, except on weekends. Her platelet count was reported to be 400 at her last hospital discharge. In addition, the patient reports regular bowel movements with the help of Miralax, which has improved her previously hard stools. She also mentions a dietary concern about the interaction of grapefruit with her medications. Objective Vitals: 08/12/24 1434 08/12/24 1506 Pulse: 65 SpO2: 97% BP: 154/54 140/56 BMI: 21.57 Physical Exam VITALS: BP- 140/54 Physical Exam Constitutional: Appearance: Normal appearance. HENT: Head: Normocephalic. Cardiovascular: Rate and Rhythm: Normal rate. Rhythm irregular. Pulmonary: Effort: Pulmonary effort is normal. Breath sounds: Normal breath sounds. Abdominal: General: Bowel sounds are normal. Tenderness: There is no abdominal tenderness. Musculoskeletal: General: No swelling. Cervical back: Neck supple. Skin: General: Skin is warm. Neurological: Mental Status: She is alert and oriented to person, place, and time. Psychiatric: Mood and Affect: Mood normal. I have reviewed the following results: Results LABS PLT: 397 (07/10/2024) Assessment and Plan Assessment & Plan Chronic Respiratory Disease Patient reports good breathing during the day, uses oxygen at night. No current shortness of breath. Continues to use Trelegy daily and has a rescue inhaler. -Continue current regimen. -Use oxygen as needed during the day and continue nightly use. Hypertension Patient is taking blood pressure medication daily. Current reading is 140/54, which is an improvement from previous higher readings. -Continue current blood pressure medication. Constipation Patient reports improvement with use of Miralax. -Continue Miralax as needed. Thrombocytosis Patient is on hydroxyurea (Droplet) Monday through Monday. Last platelet count was 400. -Continue current regimen. Drug-Food Interaction Patient inquired about grapefruit interaction with medications. Eliquis was identified as the medication of concern due to potential increased risk of bleeding. -Avoid grapefruit while on Eliquis. Follow-up No blood work needed today. Next appointment with Dr. Phan in September. COPD, group B, by GOLD 2017 classification (HCC) (Primary) Atrial fibrillation, unspecified type (HCC) Chronic ITP (idiopathic thrombocytopenia) (HCC) Chronic respiratory failure with hypoxia (HCC) Constipation, unspecified constipation type HTN, goal below 140/90 Moderate pulmonary hypertension (HCC) Wrap-Up Follow Up: Return in about 6 months (around 02/09/2025) for Return with Physician, f/u with Dr. Reynaga . | For: Return with Physician, f/u with Dr. Reynaga Time: I spent a total of 30-39 minutes (exact time 35 mins) on the date of service in preparation, delivery, and documentation of the care provided to Edilma Kennedy excluding any time spent in the performance of separately billed services. Text in this note was generated using an ambient documentation service. I discussed the use of a device to record and summarize our discussion today. All persons present during the encounter consented to its use. documented in this encounter Nursing Notes * Neva Saldana CMA - 08/12/2024 2:34 PM EST The patient has been properly identified by confirmation of name and date of . Chief Complaint Patient presents with Hospital Follow-Up [facility] 07/31-08/01 for dyspnea. Feels better now, uses oxygen at night. documented in this encounter Plan of Treatment Upcoming Encounters Date Type Department Care Team (Late st Contact Info) Description 08/16/2024 11:30 AM EST Imaging Radiology [facility] [address] [place] [phone] 09/06/2024 9:00 AM EST Pharmacy Pharmacy Hematology Oncology [facility] [address] [place] [address] [facility], [facility] Hem/Onc [address] [place] [address] 10/10/2024 11:00 AM EDT Laboratory Laboratory [facility] [address] [place] [phone] [place], [facility] [address] [facility] [place] [address] 10/17/2024 9:30 AM EDT Office Visit Hematology/Oncology [facility] [address] [place] [phone] Zeeshan Choi MD [address] [place] [address] 02/10/2025 9:40 AM EDT Office Visit Family Practice [facility] [address] [place] [address] Toshia Reynaga DO [address] [place] [address] 02/11/2025 1:30 PM EDT Office Visit Pulmonary Medicine, [facility] [address] [place] [address] Enrique Fernandez MD [address] [place] [address] Health Maintenance Due Date Last Done Comments DTap/Tdap Vaccines (1 - Tdap) 09/29/1954 Albumin/Creatinine Ratio 05/11/2024 05/11/2023, 07/24 Adult Wellness Visit 01/23/2025 01/24/2024 Depression Screening 05/29/2025 05/29/2024 CKD PHOS USE SMARTSET 69580 06/10/2025 06/10/2024, 0 11/10/2022 CKD HGB USE SMARTSET 46200 07/31/202507/31, 07/10/2024, 07/10/2024, Additional history exists O2 [...] COPD, group B, by GOLD 2017 classification (HCC)- Primary Atrial fibrillation, unspecified type (HCC) 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
--- OUTSIDE RECORDS SUMMARY | 2024-09-05 22:32 | External Medical Summary | Summary of Care ---
Author Name Unknown Organization [facility] Address [address] [place] [address] Phone [phone] Care Team Providers Care Tongue Presser Name Role Phone Tsohia Reynaga DO Primary Care Provider [phone] Reason for Visit * Reason Comments Follow Up 3 month follow up Encounter Details Date Type Department Care Team (Late st Contact Info) Description 07/10/2024 1:30 PM EST Office Visit Hematology/Oncology [facility] [address] [place] [address] Ama Maldonado, LOLITA [address] [place] [address] Chronic ITP (idiopathic thrombocytopenia) (HCC)*; Anemia, unspecified type Allergies Active Allergy Reactions Criticality Noted Date Comments Lisinopril Other (Please comment) 05/06/2022 Burning in throat documented as of this encounter (statuses as of 07/11/2024) Medications Cyanocobalamin 1000 MCG Oral Tablet Take [...] as of this encounter (statuses as of 07/11/2024) Active Problems Problem Noted Date Diagnosed Date [...] as of this encounter (statuses as of 07/11/2024) Resolved Problems Problem Noted Date Diagnosed Date Resolved Date Chronic obstructive pulmonary disease 05/11/2023 06/08/2023 Overview: Per COPD GOLD Classification documented as of this encounter (statuses as of 07/11/2024) Immunizations No known immunizationsdocumented as of this [...] Clinic note [facility] [address] [place] [address] Name: Edilma Kennedy Date: 07/10/2024 CHIEF COMPLAINT: [...] including HTN and HLD. Previous patient of [place]. Followed for chronic ITP. Reviewed available [...] all other days. Patient moved back to [place] January 23. Patient currently is taking 20 mg daily as she dropped the dose down on her own three days ago as she was afraid she would run out of medication prior to this appointment. Patien t very concerned about her weight loss. This was also being worked up in [place]. Total has lost almost 100 pounds unintentionally [...] performed by Paula Callahan MD at OR [facility] Social History Socioeconomic History Marital status: [...] Ellipta 100-62.5-25 MCG/ACT Aerosol Powder Breath Activated (Uescygatmta-Tbtpynvfrkkj-Jfugazqdsl) Inhale 1 Puff by mouth in the morning. 180 Blister Dosing Unit 1 Doptelet 20 MG Oral Tablet (Avatrombopag Maleate) Take 20 mg by mouth daily except for Monday andMonday. 30 Tablet 4 Eliquis 2.5 MG Oral Tablet (Apixaban) TAKE 1 TABLET IN THE MORNING AND TAKE 1 TABLET BEFORE [id number] Tablet 1 Metoprolol Succinate ER 50 MG [...] Care Team (Late st Contact Info) Description 07/31/2024 10:20 AM EST Office Visit Pulmonary Medicine, [facility] [address] [facility] [place] [address] Enrique Fernandez MD [address] [facility] [place] [address] 08/09/2024 9:00 AM EST Pharmacy Pharmacy Hematology Oncology [facility]3] [address] [place] [address] [facility], [facility] Hem/Onc [address] [place] [address] 10/10/2024 11:00 AM EDT Laboratory Laboratory [facility] [place] [address] [place] [phone] [facility] [place] [address] [address] [facility] [place] [address] 10/17/2024 9:30 AM EDT Office Visit Hematology/Oncology [facility] [place] [address] [place] [address] Zeeshan Choi MD 200 [facility] [place] [address] Health Maintenance Due Date Last Done Comments DTap/Tdap Vaccines (1 - Tdap) 09/29/1954 Albumin/Creatinine Ratio 05/11/2024 05/11/2023, 07/24 Adult Wellness Visit 01/23/2025 01/24/2024 Depression Screening 05/29/2025 05/29/2024 CKD PHOS USE SMARTSET 92205 06/10/2025 06/10/2024, 0 11/10/2022 CKD HGB USE SMARTSET 06425 07/10/202507/10, 07/10/2024, 06/27/2024, Additional history exists O2 [...] type documented in this encounter Care Teams Tongue Presser Relationship Specialty Start Date End Date Toshia Reynaga DO [address] [place] [address] PCP - General Family Medicine 12/07/22 documented as of this encounter
--- OUTSIDE RECORDS SUMMARY | 2024-09-05 22:32 | External Medical Summary | Summary of Care ---
Author Name Unknown Organization [facility] Address [address] [place] [address] Phone [phone] Care Team Providers Care Seating Upholsterer Name Role Phone Toshia Reynaga DO Primary Care Provider [phone] Reason for Visit * Reason Comments Outpatient Testing Encounter Details Date Type Department Care Team (Late st Contact Info) Description 07/10/2024 1:20 PM EST Laboratory Laboratory [facility] [address] [place] [address] [facility] [address] [place] [address] Chronic ITP (idiopathic thrombocytopenia) (HCC) Allergies Active Allergy Reactions Criticality Noted Date Comments Lisinopril Other (Please comment) 05/06/2022 Burning in throat documented as of this encounter (statuses as of 07/10/2024) Medications Cyanocobalamin 1000 MCG Oral Tablet Take [...] as of this encounter (statuses as of 07/10/2024) Active Problems Problem Noted Date Diagnosed Date [...] as of this encounter (statuses as of 07/10/2024) Resolved Problems Problem Noted Date Diagnosed Date Resolved Date Chronic obstructive pulmonary disease 05/11/2023 06/08/2023 Overview: Per COPD GOLD Classification documented as of this encounter (statuses as of 07/10/2024) Immunizations No known immunizationsdocumented as of this [...] 10:20 AM EST Office Visit Pulmonary Medicine, [facility] [address] [place] [address] Enrique Fernandez MD [address] [facility] [place] [phone] 08/09/2024 9:00 AM EST Pharmacy Pharmacy Hematology Oncology [facility] [address] [facility] [address] [facility] Hem/Onc [address] [place] [address] Health Maintenance Due Date Last Done Comments DTap/Tdap Vaccines (1 - Tdap) 09/29/1954 Albumin/Creatinine Ratio 05/11/2024 05/11/2023, 07/24 Adult Wellness Visit 01/23/2025 01/24/2024 Depression Screening 05/29/2025 05/29/2024 O2 ASSESSMENT COMPLETED IN PAST YEAR FOR COPD 05/29/2025 05/29/2024 CKD PHOS USE SMARTSET 10700 06/10/2025 06/10/2024, 0 11/10/2022 CKD HGB USE SMARTSET 48037 07/10/202507/10, 07/10/2024, 06/27/2024, Additional history exists DXA Scan 12/07/2032 12/07/2022 [...] Date/Time Associated Diagnosis Comments DIFFERENTIAL, AUTOMATED STAT 07/10/2024 1:22 PM EST Chronic ITP (idiopathic thrombocytopenia) (HCC) CBC STAT 07/10/2024 1:22 PM EST Chronic ITP (idiopathic thrombocytopenia) (HCC) CBC STAT 07/10/2024 1:22 PM EST Chronic ITP (idiopathic thrombocytopenia) (HCC) documented in this encounter Results * DIFFERENTIAL, AUTOMATED (07/10/2024 1:22 PM EST) WBC 8.94 4.00 - 10.80 K/uL 07/10/2024 1:29 PM EST [facility]-02 Neutrophils % 68.8 40.0 - 75.0 % 07/10/2024 1:29 PM EST [facility] 56-02 Lymphocytes % 20.8 18.0 - 42.0 % 07/10/2024 1:29 PM EST [facility] 56-02 Monocytes % 8.2 1.0 - 11.0 % 07/10/2024 1:29 PM EST [facility] 56-02 Eosinophils % 1.6 0.0 - 6.0 % 07/10/2024 1:29 PM EST [facility] 56 Basophils % 0.6 0.0 - 2.0 % 07/10/2024 1:29 PM EST [facility] 56- Absolute Neutrophils 6.16 1.80 - 7.70 K/uL 07/10/2024 1:29 PM EST [facility] 56 Absolute Lymphocytes 1.86 1.00 - 4.80 K/ul 07/10/2024 1:29 PM EST [facility] 56 Absolute Monocytes 0.73 0.00 - 1.10 K/uL 07/10/2024 1:29 PM EST [facility] 56 Absolute Eosinophils 0.14 0.00 - 0.70 K/uL 07/10/2024 1:29 PM EST [facility] 56- Absolute Basophils 0.05 0.00 - 0.20 K/uL 07/10/2024 1:29 PM [facility] 56 Blood Venous blood specimen / Unknown Venipuncture / Unknown 07/10/2024 1:22 PM EST 07/10/2024 1:22 PM EST us Zeeshan Choi MD LAB BLOOD ORDERABLES Final Res ult [facility] [address] [place] [address] * (ABNORMAL) CBC (07/10/2024 1:22 PM EST) WBC 8.94 4.00 - 10.80 K/uL 07/10/2024 1:29 PM [facility] 56 RBC 3.37 3.85 - 5.15 M/uL 07/10/2024 1:29 PM [facility] 56 HGB 10.4(L) 12.0 - 15.3 g/dL 07/10/2024 1:29 PM [facility] 56 HCT 32.5(L) 36.0 - 45.2 % 07/10/2024 1:29 PM [facility] 56 MCV 96.4 81.5 - 97.5 fL 07/10/2024 1:29 PM [facility] 56 MCH 30.9 27.0 - 34.0 pg 07/10/2024 1:29 PM [facility] 56 MCHC 32.0 32.0 - 36.0 g/dL 07/10/2024 1:29 PM EST [facility] 56 RDW 13.8 11.5 - 15.5 % 07/10/2024 1:29 PM [facility] 56 PLT 397 140 - 400 K/uL 07/10/2024 1:[address] MPV 9.6 6.6 - 11.1 fL 07/10/2024 1:29 PM [facility] 56 Blood Venous blood specimen / Unknown Venipuncture / Unknown 07/10/2024 1:22 PM EST 07/10/2024 1:22 PM EST us Zeeshan Choi MD LAB BLOOD ORDERABLES Final Res ult [facility] [address] [place] [address] documented in this encounter Visit Diagnoses Diagnosis 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
--- OUTSIDE RECORDS SUMMARY | 2024-09-05 22:32 | External Medical Summary | Summary of Care ---
Author Name Unknown Organization [facility] Address [address] [place] [address] Phone [phone] Care Team Providers Care Perfumer Name Role Phone Toshia Reynaga DO Primary Care Provider [phone] Encounter Details Date Type Department Care Team (Late st Contact Info) Description 08/01/2024 Orders Only Family Practice [facility] [address] [facility] [place] [address] Toshia Reynaga DO [address] [facility] [place] [address] Allergies Active Allergy Reactions Criticality Noted Date Comments Lisinopril Other (Please comment) 05/06/2022 Burning in throat documented as of this encounter (statuses as of 08/01/2024) Medications Cyanocobalamin 1000 MCG Oral Tablet Take [...] as of this encounter (statuses as of 08/01/2024) Active Problems Problem Noted Date Diagnosed Date [...] as of this encounter (statuses as of 08/01/2024) Resolved Problems Problem Noted Date Diagnosed Date Resolved Date Chronic obstructive pulmonary disease 05/11/2023 06/08/2023 Overview: Per COPD GOLD Classification documented as of this encounter (statuses as of 08/01/2024) Immunizations No known immunizationsdocumented as of this [...] 1:40 PM EST Office Visit Pulmonary Medicine, [facility] 132 [facility] [place] [address] Enrique Fernandez MD [address] [facility] [address] 08/09/2024 9:00 AM EST Pharmacy Pharmacy Hematology Oncology [facility] [address] [place] [address] [facility] Hem/Onc [address] [place] [address] 10/10/2024 11:00 AM EDT Laboratory Laboratory [place] [address] [place] [phone] [address] [place] [address] 10/17/2024 9:30 AM EDT Office Visit Hematology/Oncology [facility] 200 [facility] [place] [address] Zeeshan Choi MD 200 [facility] [place] [address] Health Maintenance Due Date Last Done Comments DTap/Tdap Vaccines (1 - Tdap) 09/29/1954 Albumin/Creatinine Ratio 05/11/2024 05/11/2023, 07/24 *NEPHROLOGY REFERRAL DUE TO RESISTANT HTN 07/13/2024 Adult Wellness Visit 01/23/2025 01/24/2024 Depression Screening 05/29/2025 05/29/2024 CKD PHOS USE SMARTSET 61272 06/10/2025 06/10/2024, 0 11/10/2022 O2 ASSESSMENT COMPLETED IN PAST YEAR FOR COPD 07/10/2025 07/10/2024 CKD HGB USE SMARTSET 93772 07/31/202507/31, 07/10/2024, 07/10/2024, Additional history exists DXA [...] Priority Date/Time Associated Diagnosis Comments CHEMISTRY-OUTSIDE Routine 07/31/2024 documented in this encounter Results * (ABNORMAL) CHEMISTRY-OUTSIDE (07/31/2024) Not all results display below - see scan for full detail OUTSIDE LAB (SEE SCANNED REPORT) Comment:SEE SCAN: CBCD, URIN ALYSIS,BLOOD GAS VENOUS, BNP,LACTIC ACID,TROPONIN. D DIMER, CMP CREATININE 1.13(H) 0.55 - 1.02 MG/DL OUTSIDE LAB (SEE SCANNED REPORT) EGFR 47 >60 ML/MIN.1.7 3M2 OUTSIDE LAB (SEE SCANNED REPORT) POTASSIUM 4.0 3.5 - 5.1 MMOL/L OUTSIDE LAB (SEE SCANNED REPORT) GLUCOSE 135(H) 70 - 110 MG/DL OUTSIDE LAB (SEE [...] LAB OUTSIDE LAB (SEE SCANNED REPORT) HEMOGLOBIN, Y1R-CHFRREI LAB OUTSIDE LAB (SEE SCANNED REPORT) PHOSPHORUS-OUTSID E LAB OUTSIDE LAB (SEE SCANNED REPORT) PTH-OUTSIDE LAB OUTS [facility] (SEE SCANNED REPORT) MICROALBUMIN RATIO-OUTSIDE LAB OUTSIDE LA B (SEE SCANNED REPORT) PROTEIN, UA-OUTSIDE LAB OUTSIDE LAB (SEE SCANNED REPORT) HGB 11.2(L) 12.0 - 16.0 GM/DL OUTSIDE LAB (SEE SCANNED REPORT) 07/31/2024 us Toshia Reynaga DO LABORATORY Final Resul t OUTSIDE LAB (SEE SCANNED REPORT) documented in this encounter Care Teams Perfumer Relationship Specialty Start Date End Date Toshia Reynaga DO [address] [place] [address] [place] [address] PCP - General Family Medicine 12/07/22 documented as of this encounter
--- OUTSIDE RECORDS SUMMARY | 2024-09-05 22:32 | External Medical Summary | Summary of Care ---
Author Name Unknown Organization [facility] Address [address] [place] [address] Phone [phone] Care Team Providers Care Stamp Clerk Name Role Phone Toshia Reynaga DO Primary Care Provider [phone] Encounter Details Date Type Department Care Team (Late st Contact Info) Description 07/31/2024 Result Scan Unspecified Department <No scans attached> [...] 1:40 PM EST Office Visit Pulmonary Medicine, [facility] 132 [facility] [place] [address] Enrique Fernandez MD [address] [facility] [address] 08/09/2024 9:00 AM EST Pharmacy Pharmacy Hematology Oncology [address] [address] [facility], [facility] Hem/Onc [facility] [place] [address] 10/10/2024 11:00 AM EDT Laboratory Laboratory [place] [address] [place] [phone] [facility] [address] [place] [address] 10/17/2024 9:30 AM EDT Office Visit Hematology/Oncology [place] [address] [place] [phone] Zeeshan Choi MD [address] [place] [address] Health Maintenance Due Date Last Done Comments DTap/Tdap Vaccines (1 - Tdap) 09/29/1954 Albumin/Creatinine Ratio 05/11/2024 05/11/2023, 07/24 *NEPHROLOGY REFERRAL DUE TO RESISTANT HTN 07/13/2024 Adult Wellness Visit 01/23/2025 01/24/2024 Depression Screening 05/29/2025 05/29/2024 CKD PHOS USE SMARTSET 24709 06/10/2025 06/10/2024, 0 11/10/2022 CKD HGB USE SMARTSET 21362 07/10/202507/31, 07/10/2024, 07/10/2024, Additional history exists O2 ASSESSMENT [...] Date/Time Associated Diagnosis Comments OUTSIDE LAB RESULTS 07/31/2024 documented in this encounter Results * OUTSIDE LAB RESULTS (07/31/2024) 07/31/2024 us No Physician Data Unknown LABORATORY Final Result documented in this encounter Care Teams Stamp Clerk Relationship Specialty Start Date End Date Toshia Reynaga DO [address] [place] [address] PCP - General Family Medicine 12/07/22 documented as of this encounter
--- OUTSIDE RECORDS SUMMARY | 2024-09-05 22:32 | External Medical Summary ---
Author Name Unknown Address Unknown Organization K[facility] [place] [address] Laboratory Report Ordering Provider Test Date Status RAMU VASQUES 07/10/2024 13:22:48 Final Observation Date Value Abnormality Reference (Units ) Status SYNC LEUKOCYTES IN BLOOD BY AUTOMATED COUNT 07/10/2024 13:22:48 8.94 4.00-10.80 (K/uL) Final Segs 07/10/2024 13:22:48 68.8 40.0-75.0 (%) Final Lymphs % 07/10/2024 13:22:48 20.8 18.0-42.0 (%) Final Monos 07/10/2024 13:22:48 8.2 1.0-11.0 (%) Final Eosinophils 07/10/2024 13:22:48 1.6 0.0-6.0 (%) Final Basos 07/10/2024 13:22:48 0.6 0.0-2.0 (%) Final Absolute Segs 07/10/2024 13:22:48 6.16 1.80-7.70 (K/uL) Final Lymphs, absolute 07/10/2024 13:22:48 1.86 1.00-4.80 (K/ul) Final Monos, Abs 07/10/2024 13:22:48 0.73 0.00-1.10 (K/uL) Final Eos, Abs 07/10/2024 13:22:48 0.14 0.00-0.70 (K/uL) Final Basos, Abs 07/10/2024 13:22:48 0.05 0.00-0.20 (K/uL) Final Performing Location [facility] [address]
--- OUTSIDE RECORDS SUMMARY | 2024-09-05 22:32 | External Medical Summary | Summary of Care ---
Author Name Unknown Organization [facility] Address [address] [place] [address] Phone [phone] Care Team Providers Care Supervisor Production Managing Name Role Phone Toshia Reynaga DO Primary Care Provider [phone] Reason for Visit * Reason Comments Follow Up COPD * Evaluate & Treat - Unlimited Visits (Within 10 days (routine)) - Closed Specialty Diagnoses / Procedures Referred By Felix t Referred To Contact Pulmonary Diseases / Pulmonary Diagnoses Chronic respiratory failure with hypoxia (HCC) Toshia Reynaga DO [address] [place] [address] Phone: tel: fax: Referral ID Status Reason Start Date Expiration Date V isits Requested Visits Authorized [id number] Closed Specialty Services Required 01/24/[phone] Encounter Details Date Type Department Care Team (Late st Contact Info) Description 01/29/2024 2:20 PM EDT Office Visit Pulmonary Medicine, [facility] 132 [facility] [place] [address] Enrique Fernandez MD [address] [place] [address] COPD, very severe (HCC)*; Chronic respiratory failure [...] 01/29/2024 3:12 PM EDT 01/29/2024 Pulmonary Medicine, [facility] 132 [facility] [place] [phone] Edilma Kennedy 1935 female 88 year old [...] pulmonary evaluation. Patient had been admitted to [place] [facility] hospital 09/21/2023 where she presented with [...] symptoms status. 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) Pulmonary HTN, Moderate Hx of CHF Exacerbation 08/2023 (Admitted to [facility]) On diuresis Trelegy, Albuterol rescue + Nebulizer [...] with Follow Up COPD HPI: Nursing Notes: Aliica Espinoza LPN 01/29/24 1519 Signed Chief Complaint Patient presents with Follow Up COPD Interm History/Respiratory Symptoms Cough: yellow-mostly in the am Hemoptysis: no Sinus Symptoms: occ PND Hospitalizations: no ED Trips: no Triggers: no Nocturnal: propped up-bed rises CPAP/BiPAP/O2: O2 @ 2-3 lpm DME Supplier: [facility] Travel Screening Question 01/29/2024 2:32 PM EDT - Filed by Patient Do you have any of the following new or worsening symptoms? Cough Have you recently been in contact with someone who was sick? No / Unsure [facility] Cat Question 01/29/2024 2:37 PM EDT - [...] Ellipta 100-62.5-25 MCG/ACT Aerosol Powder Breath Activated (Qzkamujmgza-Wkzryonmjucd-Qzzwnsrlry) Albuterol Sulfate (2.5 MG/3ML) 0.083% Inhalation Nebulization [...] performed by Paula Callahan MD at OR [facility] Social History Socioeconomic History Marital status: Tobacco [...] CPAP/BiPAP/O2: O2 @ 2-3 lpm DME Supplier: [facility] Travel Screening Question 01/29/2024 2:32 PM EDT [...] 1:40 PM EST Office Visit Pulmonary Medicine, [facility] 132 [facility] [place] [address] Enrique Fernandez MD [address] [facility] [place] [address] 08/09/2024 9:00 AM EST Pharmacy Pharmacy Hematology Oncology [facility] [address] [place] [address] [facility] Hem[facility]Onc [address] [place] [address] 10/10/2024 11:00 AM EDT Laboratory Laboratory [facility] 200 [facility] [place] [phone] [facility] [address] [place] [address] 10/17/2024 9:30 AM EDT Office Visit Hematology/Oncology [facility] [place] 200 [facility] [place] [phone] Zeeshan Choi MD 200 [facility] [place] [address] Health Maintenance Due Date Last Done Comments DTap/Tdap Vaccines (1 - Tdap) 09/29/1954 Albumin/Creatinine Ratio 05/11/2024 05/11/2023, 07/24 *NEPHROLOGY REFERRAL DUE TO RESISTANT HTN 07/13/2024 Adult Wellness Visit 01/23/2025 01/24/2024 Depression Screening 05/29/2025 05/29/2024 CKD PHOS USE SMARTSET 42866 06/10/2025 06/10/2024, 0 11/10/2022 O2 ASSESSMENT COMPLETED IN PAST YEAR FOR COPD 07/10/2025 07/10/2024 CKD HGB USE SMARTSET 85324 07/31/202507/31, 07/10/2024, 07/10/2024, Additional history exists DXA [...] failure documented in this encounter Care Teams Supervisor Production Managing Relationship Specialty Start Date End Date Toshia Reynaga DO [address] [place] [address] PCP - General Family Medicine 12/07/22 documented as of this encounter
--- OUTSIDE RECORDS SUMMARY | 2024-09-05 22:32 | External Medical Summary | Summary of Care ---
Author Name Unknown Organization [facility] Address [address] [place] [address] Phone [phone] Care Team Providers Care Immunology Teacher Name Role Phone Toshia Reynaga DO Primary Care Provider [phone] Encounter Details Date Type Department Care Team (Late st Contact Info) Description 08/07/2024 Telephone Family Practice [facility] [address] [place] [phone] Toshia Reynaga DO [address] [place] [facility] [place] [address] Allergies Active Allergy Reactions Criticality Noted Date Comments Lisinopril Other (Please comment) 05/06/2022 Burning in throat documented as of this encounter (statuses as of 08/14/2024) Medications Cyanocobalamin 1000 MCG Oral Tablet Take [...] 1 Tablet by mouth in the morning. 5 Active documented as of this encounter (statuses as of 08/14/2024) Active Problems Problem Noted Date Diagnosed Date [...] as of this encounter (statuses as of 08/14/2024) Resolved Problems Problem Noted Date Diagnosed Date Resolved Date Chronic obstructive pulmonary disease 05/11/2023 06/08/2023 Overview: Per COPD GOLD Classification documented as of this encounter (statuses as of 08/14/2024) Immunizations No known immunizationsdocumented as of this encounter Social History Tobacco Use Types Packs/Day Years Used Date Smoking Tobacco: Former Cigarettes 0.3 5 1 4 1978 Passive Smoke Exposure: Never Smokeless Tobacco: [...] encounter Miscellaneous Notes * Telephone Encounter - Anna Harkins LPN - 08/14/2024 11:44 AM EST Pt had f/u appt on 08/12 * Telephone Encounter - Lorri Pringle CRNP - 08/13/2024 1:17 PM EST Inboxologist note: Inboxologist Covering Provider No concerns. Please keep follow up appt All replies or additional communication must be routed to the PCP * Telephone Encounter - Nichole Kim LPN - 08/07/2024 3:39 PM EST Sheryl called back. Pt happens to also be on Prednisone currently, and has only had one nightmare, and no problem sleeping last night. This same thing had been reported in the past, but only on occasion. Also do not think a few episodes with nightmares is from Metoprolol, however the pharmacist says that it can happen. Tried to call pt, left message to return call. Any concerns about BP? Systolic? 141/69 61 Today. * Telephone Encounter - Nichole Kim LPN - 08/07/2024 3:09 PM EST Left message for nurse manager nursing home at [facility]. Called pt, line ringing busy. Try again later. * Telephone Encounter - Lorri Pringle CRNP - 08/07/2024 2:27 PM EST Inboxologist Covering Provider Please call and find out more detail. I do not think metoprolol is causing nightmares. All replies or additional communication must be routed to the PCP * Telephone Encounter - Winter Kelly OSA - 08/07/2024 9:53 AM EST A medication prescription change, dosage change, or quantity change was requested for this patient. Name of Requestor: Nurse Gyroscopic Engineering Technician Medication: Metoprolol lauro extended release 50mg Reason for request: Please review metoprolol medication. Pharmacist believes this might be causing nightmares. Blood pressure high systolic side at 155/69 and heart rate 51. Current dose (if applicable): 50 mg twice daily Dose requested (if applicable/Mail Order should be 90 day Supply): N/A Current quantity (if applicable): 90 day supply Quantity requested (if applicable): N/A Preferred pharmacy: [facility] mail order pharmacy Applicable to [facility] Requests: Does the order need to be faxed somewhere? If so, where?: [facility] fax or e-scrbe Fax Number, if applicable: N/A documented in this encounter Plan of Treatment Upcoming Encounters Date Type Department Care Team (Late st Contact Info) Description 08/16/2024 11:30 AM EST Imaging Radiology [facility] [address] [place] [phone] 09/06/2024 9:00 AM EST Pharmacy Pharmacy Hematology Oncology [facility] [address] [place] [address] [facility], [facility] Hem/Onc [address] [place] [address] 10/10/2024 11:00 AM EDT Laboratory Laboratory [facility] [address] [place] [phone] [place], [address] [place] [address] 10/17/2024 9:30 AM EDT Office Visit Hematology/Oncology [facility] [address] [place] [phone] Zeeshan Choi MD [address] [place] [address] 02/10/2025 9:40 AM EDT Office Visit Family Practice [facility] [address] [place] [address] Toshia Reynaga DO [address] [place] [address] 02/11/2025 1:30 PM EDT Office Visit Pulmonary Medicine, [facility] [address] [address] Enrique Fernandez MD [address] [place] [place] [address] Health Maintenance Due Date Last Done Comments DTap/Tdap Vaccines (1 - Tdap) 09/29/1954 Albumin/Creatinine Ratio 05/11/2024 05/11/2023, 07/24 Adult Wellness Visit 01/23/2025 01/24/2024 Depression Screening 05/29/2025 05/29/2024 CKD PHOS USE SMARTSET 65862 06/10/2025 06/10/2024, 0 11/10/2022 CKD HGB USE SMARTSET 22138 07/31/202507/31, 07/10/2024, 07/10/2024, Additional history exists O2 [...] filedocumented as of this encounter Care Teams Immunology Teacher Relationship Specialty Start Date End Date Toshia Reynaga DO [address] [place] [address] PCP - General Family Medicine 12/07/22 documented as of this encounter
--- OUTSIDE RECORDS SUMMARY | 2024-09-05 22:32 | External Medical Summary | Summary of Care ---
Author Name Unknown Organization [facility] Address [address] [place] [address] Phone [phone] Care Team Providers Care Argon Tester Name Role Phone Toshia Reynaga DO Primary Care Provider [phone] Reason for Visit * Reason Comments Medication Management Encounter Details Date Type Department Care Team (Late st Contact Info) Description 08/09/2024 9:00 AM [facility] Pharmacy Pharmacy Hematology Oncology [facility] [address], [place] [phone] [facility], [facility] Hem/Onc [address], [place] [phone] Chronic ITP (idiopathic thrombocytopenia) (HCC)* Allergies Active Allergy Reactions Criticality Noted Date Comments Lisinopril Other (Please comment) 05/06/2022 Burning in throat documented as of this encounter (statuses as of 08/09/2024) Medications Cyanocobalamin 1000 MCG Oral Tablet Take [...] by mouth in the morning. 08/02/19 25 Active Azithromycin 500 MG Oral Tablet (Zithromax) take 1 tablet by mouth once daily for 3 days 08/02/19 025 Discontin ued(Medic ation List Clean Up) predniSONE 10 MG Oral Tablet (Deltasone) take 4 tablets by mouth on day 1 then take 3 tablets by mouth on ... (REFER TO PRESCRIPTION NOTES). 08/02/19 25 025 Discontin ued(Medic ation List Clean Up) documented as of this encounter (statuses as of 08/09/2024) Active Problems Problem Noted Date Diagnosed Date [...] as of this encounter (statuses as of 08/09/2024) Resolved Problems Problem Noted Date Diagnosed Date Resolved Date Chronic obstructive pulmonary disease 05/11/2023 06/08/2023 Overview: Per COPD GOLD Classification documented as of this encounter (statuses as of 08/09/2024) Immunizations No known immunizationsdocumented as of this [...] this encounter Progress Notes * Winter Casiano, [facility] - 08/09/2024 10:44 AM EST MEDICATION THERAPY MANAGEMENT AVATROMBOPAG TREATMENT PROGRESS NOTE Edilma Kennedy [phone] Patient Phone Numbers son Christian Son: Christian Communication: Spoke to: Patient Treatment: Medication: Avatrombopag (Doptelet) Indication/Staging/Diagnosis Code: ITP/D69.3 Dose: 20mg M-F ( 01/11/24) Administration: with food Start Date: November 2019 Primary Carbide Operator/Oncologist: Dr. Gabriel Choi Additional therapy: Rutiximab x 2 Dose adjustment / medication hold: 09/14/23-09/24/23: avatrombopag held due to thrombocytosis (PLT 919K) 09/25/23: resume avatrombopag at 20mg daily 10/25/23-11/06/23: avatrombopag held due to thrombocytosis (PLT 684K) 01/11/24: avatrombopag DR 20mg M-F due to ongoing thrombocytosis Interval History: Pt admitted to [facility] 05/23/22 for bleeding and PLT < 10K and transferred to [facility] 05/24/22 and discharged 06/18/22 Admitted to [facility] 09/01/23-09/06/23 for CHF/COPD exacerbation - avatrombopag continued during admission despite PLT 718K 09/01/23 Admitted to [facility] 10/18/23-10/22/23 for COPD exacerbation Admitted to [facility] 11/09/23-11/12/23 for thrombocytopenia and received methylprednisolone and increased dose of avatrombopag 40mg daily Admitted to [facility] 11/15/23-11/19/23 for symptomatic a fib and discharged on apixaban Administered avatrombopag 40mg daily while admitted Per TE 11/17/23, pt okay to receive apixaban given elevated PLT Per OV 02/14/24, lab monitoring extended to monthly Pt in ED 08/01/24 for COPD exacerbation and given azithromycin and prednisone No concerns, tolerating therapy well Changes to medication list since last visit? Yes, azithromycin and prednisone - no DDI Assessment and plan: PLT from 07/31/24 (see media) continue to be above goal (50-200K) at 525K potentially due to prednisone CBC otherwise stable As per previous discussion with Dr Choi, continue current avatrombopag dose Repeat labs in 1 month Assessment of compliance: compliant Dose adjustment needed based on lab or adverse drug reaction? No Follow up: 1 month Winter Casiano, AleenaD, BCOP Clinical Pharmacist, [facility] Oral Chemotherapy [facility] 08/09/2024, 10:50 AM Pertinent labs: see media Time Spent on Encounter: 6 - 10 minutes Encounter Group: Hematology Encounter Interventions Item Category: Oral Chemotherapy Other: Avatrombopag Problem/Rationale: Effectiveness: Needs additional monitoring - Medication Requires monitoring Safety: Needs additional monitoring - Medication Requires monitoring Pharmacist Intervention(s): Drug Interaction Screen, Lab monitoring, and Toxicity monitoring Magnitude of Intervention: Monitoring with direction (Level 1) documented in this encounter Plan of Treatment Upcoming Encounters Date Type Department Care Team (Late st Contact Info) Description 08/12/2024 2:40 PM EST Office Visit Family Practice [facility] [address] [place] [address] Frederick Cervantes CRNP [address] [place] [address] 08/16/2024 11:30 AM EST Imaging Radiology [address] [place] [phone] 09/06/2024 9:00 AM EST Pharmacy Pharmacy Hematology Oncology [facility] [address] [place] [address] [facility], [facility] Hem/Onc [address] [place] [address] 10/10/2024 11:00 AM EDT Laboratory Laboratory [facility] [address] [place] [phone] [facility] [address] [facility] [place] [address] 10/17/2024 9:30 AM EDT Office Visit Hematology/Oncology [facility] [address] [place] [phone] Zeeshan Choi MD [address] [place] [address] 02/11/2025 1:30 PM EDT Office Visit Pulmonary Medicine, [facility] [address] [place] [address] Enrique Fernandez MD [address] [place] [address] Health Maintenance Due Date Last Done Comments DTap/Tdap Vaccines (1 - Tdap) 09/29/1954 Albumin/Creatinine Ratio 05/11/2024 05/11/2023, 07/24 *NEPHROLOGY REFERRAL DUE TO RESISTANT HTN 07/13/2024 Adult Wellness Visit 01/23/2025 01/24/2024 Depression Screening 05/29/2025 05/29/2024 CKD PHOS USE SMARTSET 49511 06/10/2025 06/10/2024, 0 11/10/2022 CKD HGB USE SMARTSET 69123 07/31/202507/31, 07/10/2024, 07/10/2024, Additional history exists O2 ASSESSMENT COMPLETED IN PAST YEAR FOR COPD 08/07/2025 08/07/2024 DXA Scan 12/07/2032 12/07/2022 Alpha-1 Antitrypsin Completed [...] purpura documented in this encounter Care Teams Argon Tester Relationship Specialty Start Date End Date Toshia Reynaga DO [address] [place] [address] PCP - General Family Medicine 12/07/22 documented as of this encounter
--- OUTSIDE RECORDS SUMMARY | 2024-09-05 22:32 | External Medical Summary | Summary of Care ---
Author Name Unknown Organization [facility] Address [address] [place] [address] Phone [phone] Care Team Providers Care Professor Of Philosophy Name Role Phone Ronnell Toshiatheodore Paul DO Primary Care Provider [phone] Reason for Visit * Reason Comments Follow Up Return pulm. COPD,ve ry severe. Chronic resp failure with hypoxia. Encounter Details Date Type Department Care Team (Late st Contact Info) Description 08/07/2024 1:40 PM EST Office Visit Pulmonary Medicine, [facility] [address] [facility] [place] [address] Enrique Fernandez MD [address] [facility] [place] [address] Moderate pulmonary hypertension (HCC)*; Chronic respiratory failure with hypoxia (HCC); Diastolic dysfunction; HTN, goal below 140/90 Allergies Active Allergy [...] by mouth in the morning. 5 Active Azithromycin 500 MG Oral Tablet (Zithromax) take 1 tablet by mouth once daily for 3 days 5 Active predniSONE 10 MG Oral Tablet (Deltasone) take 4 tablets by mouth on day 1 then take 3 tablets by mouth on ... (REFER TO PRESCRIPTION NOTES). Active documented as of this encounter (statuses [...] Sign Reading Time Taken Comments Blood Pressure 120/60 08/07/2024 1:35 PM EST Pulse 63 08/07/2024 1:35 PM EST Temperature 36.4 C (97.5 F) 08/07/2024 1:35 PM ES T Respiratory Rate 16 08/07/2024 1:35 PM EST Oxygen Saturation 95% 08/07/2024 1:36 PM EST ra-amb Inhaled Oxygen Concentration - - Weight 52.6 kg (116 lb) 08/07/2024 1:35 PM EST Height 154.9 cm (5' 1") 08/07/2024 1:35 PM EST Body Mass Index 21.92 08/07/2024 1:35 PM EST documented in this encounter Progress Notes * Enrique Fernandez MD - 08/07/2024 1:41 PM EST 08/07/2024 Pulmonary Medicine, [address] [place] [address] [id number] Edilma Simmons Marcia 1935 female 88 year old Attending Physician Documentation: 88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 O completing prednisone taper. Remains on 2 L nasal cannula oxygen for continuous use . Patient describes adequate compliance with home oxygen therapy. Physical examination significant for class 2 throat, dry oral mucosa, compromised air entry with scattered coarse wheezing and rhonchi without dullness, regular cardiac rhythm with loud right parasternal systolic murmur, no evidence of volume overload and nonlateralizing Neuro examination PFT 03/2023: Severe Mixed obstructive and restrictive pattern CT Chest: scattered sub cm Pulm Nodules, 3-4 mm 6 MWT +ve, 2L NC Oxygen NPOX on RA +ve, 2L oxygen Plan: C/w Trelegy C/w Albuterol Neb +/- MDI rescue inhaler Continue with 2 L nasal cannula continuous oxygen therapy Antihypertensive and diuresis regimen per Cardiology management plan Avoid sick contacts Maintain Physical Activity Status Call with Change in resp symptom status Follow Up: 6 months Follow Up: Return in about 6 months (around 02/04/2025) for Clinic Visit. 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 Plan: C/w Trelegy C/w Albuterol Neb +/- MDI rescue inhaler Continue with 2 L nasal cannula continuous oxygen therapy Avoi Follow Up: Return in about 6 months (around 02/04/2025) for Clinic Visit. | For: Clinic Visit | Check-out note: d sick contacts Maintain Physical Activity Status Call with Change in resp symptom status Follow Up: 6 months I spent a total of 40-54 minutes (exact time 40 mins) on the date of service in preparation, delivery, and documentation of the care provided to Edilma Kennedy excluding any time spent in the performance of separately billed services or time spent by another provider/QHP. Enrique Fernandez MD Data review: Following reports, and data as outlined below was personally reviewed and interpreted by myself. PFT 03/2023: Severe Mixed obstructive and restrictive pattern CT Chest: scattered sub cm Pulm Nodules, 3-4 mm 6 MWT +ve, 2L NC Oxygen NPOX on RA +ve, 2L oxygen Review of historical pulmonary workup data shows [...] chest without contrast recommended in 1 year. Subjective CC: Chief Complaint Patient presents with Follow Up Return pulm. COPD,very severe. Chronic resp failure with hypoxia. HPI: Nursing Notes: Ani Orozco LPN 08/07/24 1340 Signed Chief Complaint Patient presents with Follow Up Return pulm. COPD,very severe. Chronic resp failure with hypoxia. Mmrc Cat Question 08/07/2024 1:32 PM EST - Filed by Patient When do you become breathless? (0) I only get breathless with strenuous exercise How frequently do you cough? (3) Do you have phlegm in your chest? (2) Is your chest tight? (0) - My chest does not feel tight at all How breathless do you become when walking up a hill or steps? (2) How limited are you doing activities at home? (0) - I am not limited doing any activities at home How confident are you leaving home with your lung condition? (0) - I am confident leaving my home despite my condition How soundly do you sleep? (3) How much energy do you have? (0) - I have lots of energy Total MMRC Score (range: 0 - 4) 0 Total CAT Score (range: 0 - 40) 10 Interm History/Respiratory Symptoms Cough: yes-clear phlegm Hemoptysis: no Sinus Symptoms: yes-drainage Hospitalizations: michael-07/31--Sob ,exertion. -COPD ED Trips: 07/31 Triggers: cold weather Nocturnal: bed elevated CPAP/BiPAP/O2: o2 2 L at night DME Supplier: [facility] Flu Vaccine: none Pneumovax: none Prevnar: none COVID 19: none..[facility] Objective Filed Vitals: 08/07/24 1335 08/07/24 1336 BP: 120/60 Pulse: 63 Resp: 16 Temp: 36.4 C (97.5 F) TempSrc: Tympanic SpO2: 98% 95% Weight: 52.6 kg (116 lb) Height: 1.549 m (5' 1") Exam: [...] is normal. Tests reviewed with the patient: No imaging results in the last 6 months Available Radiologic data was reviewed by me in PACS. The images were shown to the patient and findings were discussed with the patient. HOME MEDICATIONS: amLODIPine Besylate 5 MG Oral Tablet (Norvasc) predniSONE 10 MG Oral Tablet (Deltasone) Eliquis 2.5 MG Oral Tablet (Apixaban) Furosemide 20 MG Oral Tablet (Lasix) Metoprolol Succinate ER 50 MG Oral Tablet Extended Release 24 Hour (toPROL XL) Doptelet 20 MG Oral Tablet (Avatrombopag Maleate) Trelegy Ellipta 100-62.5-25 MCG/ACT Aerosol Powder Breath Activated (Zggrlvsykes-Ojxceqjcbvjr-Redugeqfqv) Ferrous Sulfate 325 (65 Fe) MG Oral Tablet Delayed Release Albuterol Sulfate HFA 108 (90 Base) MCG/ACT Inhalation Aerosol Solution Albuterol Sulfate (2.5 MG/3ML) 0.083% Inhalation Nebulization Solution (Proventil) Spacer/Aero-Holding Chambers Device Cyanocobalamin 1000 MCG Oral Tablet Polyethylene Glycol 3350 17 GM/SCOOP Oral Powder (MiraLax) Vitamin D3 125 MCG (5000 UT) Oral Capsule Azithromycin 500 MG Oral Tablet (Zithromax) Acetaminophen 500 MG Oral Tablet (Tylenol) ROS: No reported history of Hemoptysis, Hematemesis, [...] performed by Paula Callahan MD at OR [facility] Social History Socioeconomic History Marital status: Tobacco Use Smoking status: Former Current packs/day: 0.00 Average packs/day: 0.3 packs/day for 5.0 years (1.3 ttl pk-yrs) Types: Cigarettes Start date: 1973 Quit date: 1978 Years since quittin.0 Passive exposure: Never Smokeless tobacco: Never Vaping Use Vaping status: Never Used Substance and Sexual Activity Alcohol use: Never Drug use: Never Social Needs Financial Resource Strain: Low Risk (05/29/2024) Financial Resource Strain Do you have any trouble paying for your medications, or do you think you might in the future? (Adult - for ages 18 years and over): No Food Insecurity: No Food Insecurity (05/29/2024) Food Insecurity Do you need food for this week? (Adult - for ages 18 years and over): No Transportation Needs: No Transportation Needs (05/29/2024) Transportation Needs Has lack of transportation kept you from medical appointments, meetings, work, or from getting things needed for daily living? Check all that apply. (Adult - for ages 18 years and over): No Social Connections: Socially Integrated (05/29/2024) Social Connections How often do you feel lonely or isolated from those around you? (Adult - for ages 18 years and over): Never Housing Stability: Low Risk (05/29/2024) Housing Stability Do you currently live in a skilled nursing or have no steady place to sleep at night? (Adult - for ages 18 years and over): No Are you homeless or worried that you might be in the future? (Adult - for ages 18 years and over): No Family History Problem Relation Name Age of Onset COPD Mother Unknown Cancer Father Breast Cancer Sister Unknown Cancer Brother Other (after childbirth) Daughter Review of patient's allergies indicates: Allergen Reactions Lisinopril Other (Please comment) Burning in throat documented in this encounter Nursing Notes * Ani Orozco LPN - 08/07/2024 1:37 PM EST Chief Complaint Patient presents with Follow Up Return pulm. COPD,very severe. Chronic resp failure with hypoxia. Mmrc Cat Question 08/07/2024 1:32 PM EST - Filed by Patient When do you become breathless? (0) I only get breathless with strenuous exercise How frequently do you cough? (3) Do you have phlegm in your chest? (2) Is your chest tight? (0) - My chest does not feel tight at all How breathless do you become when walking up a hill or steps? (2) How limited are you doing activities at home? (0) - I am not limited doing any activities at home How confident are you leaving home with your lung condition? (0) - I am confident leaving my home despite my condition How soundly do you sleep? (3) How much energy do you have? (0) - I have lots of energy Total MMRC Score (range: 0 - 4) 0 Total CAT Score (range: 0 - 40) 10 Interm History/Respiratory Symptoms Cough: yes-clear phlegm Hemoptysis: no Sinus Symptoms: yes-drainage Hospitalizations: michael-07/31--Sob ,exertion. 08/02--COPD ED Trips: 07/31 Triggers: cold weather Nocturnal: bed elevated CPAP/BiPAP/O2: o2 2 L at night [facility] Flu Vaccine: none Pneumovax: none Prevnar: none COVID 19: none..mmrc documented in this encounter Plan of Treatment Upcoming Encounters Date Type Department Care Team (Late st Contact Info) Description 08/09/2024 9:00 AM EST Pharmacy Pharmacy Hematology Oncology [facility] [address] [place] [address] [facility] Hem/[place] [facility] [place] [address] 08/12/2024 2:40 PM EST Office Visit Family Practice [facility] 132 [facility] [place] [address] Frederick Cervantes CRNP 132 [facility] [place] [address] 08/16/2024 11:30 AM EST Imaging Radiology [facility] [address] [facility] [address] [place] [phone] 10/10/2024 11:00 AM EDT Laboratory Laboratory [facility] [address] [place] [phone] An[place], [address] [place] [place] [address] 10/17/2024 9:30 AM EDT Office Visit Hematology/Oncology [facility] [address] [place] [phone] Zeeshan Choi MD [address] [place] [address] 02/11/2025 1:30 PM EDT Office Visit Pulmonary Medicine, [facility] [address] [place] [address] Enrique Fernandez MD [address] [place] [address] Health Maintenance Due Date Last Done Comments DTap/Tdap Vaccines (1 - Tdap) 09/29/1954 Albumin/Creatinine Ratio 05/11/2024 05/11/2023, 07/24 *NEPHROLOGY REFERRAL DUE TO RESISTANT HTN 07/13/2024 Adult Wellness Visit 01/23/2025 01/24/2024 Depression Screening 05/29/2025 05/29/2024 CKD PHOS USE SMARTSET 48543 06/10/2025 06/10/2024, 0 11/10/2022 O2 ASSESSMENT COMPLETED IN PAST YEAR FOR COPD 07/10/2025 07/10/2024 CKD HGB USE SMARTSET 88536 07/31/202507/31, 07/10/2024, 07/10/2024, Additional history exists DXA [...] as of this encounter Visit Diagnoses Diagnosis Moderate pulmonary hypertension (HCC)- Primary Chronic respiratory failure with hypoxia (HCC) Chronic respiratory failure Diastolic dysfunction Heart disease, unspecified HTN, goal below 140/90 Unspecified essential hypertension documented in this encounter Care Teams Professor Of Philosophy Relationship Specialty Start Date End Date Toshia Reynaga DO [address] [place] [address] PCP - General Family Medicine 12/07/22 documented as of this encounter
--- OUTSIDE RECORDS SUMMARY | 2024-09-05 22:33 | External Medical Summary | Summary of Care ---
Author Name Unknown Organization [facility] Address [address] [place] [address] Phone [phone] Care Team Providers Care Co Chairman Name Role Phone Toshia Reynaga DO Primary Care Provider [phone] Reason for Visit * Reason Comments Medication Refill Encounter Details Date Type Department Care Team (Late st Contact Info) Description 04/22/2024 Refill [facility]ematology[facility] [place] [address] [facility] [place] [address] Layo Choi MD [address] [facility] [place] [address] Allergies Active Allergy Reactions Criticality Noted Date Comments Lisinopril Other (Please comment) 05/06/2022 Burning in throat documented as of this encounter (statuses as of 04/22/2024) Medications Medication Sig Dispensed Refills Start Date [...] mouth every 6 hours as needed. Active Spacer/Aero-Holdin g Chambers Device Use with inhaler. 1 Each 09/12/2023 Active Albuterol Sulfate (2.5 MG/3ML) 0.083% [...] or Wheezing. 54 g 3 10/12/2023 Active Apixaban 2.5 MG Oral Tablet (Eliquis) Take 1 Tablet by mouth in the morning and 1 Tablet before bedtime. 180 Tablet 1 12/13/2023 Active Metoprolol Succinate ER 50 MG Oral Tablet Extended Release 24 Hour (toPROL XL) Take 1 Tablet by mouth in the morning and 1 Tablet before bedtime. 180 Tablet 1 12/13/2023 Active Furosemide 20 MG Oral Tablet (Lasix) Take 1 Tablet by mouth in the morning. 90 Tablet 1 12/13/2023 Active Ferrous Sulfate 325 (65 Fe) MG Oral Tablet Delayed Release Take 1 Tablet by mouth 2 times a day with morning and evening meals. 180 Tablet 1 02/22/2024 Active Trelegy Ellipta 100-62.5-25 MCG/ACT Aerosol Powder Breath Activated (Fluticasone-Umecl idinium-Vilanterol ) Inhale 1 Puff by mouth in the morning. 180 Blister Dosing Unit 1 04/17/2024 Active Doptelet 20 MG Oral Tablet (Avatrombopag Maleate) Take 20 mg by mouth daily except for Monday and Monday. 25 Tablet 5 04/22/2024 Active Avatrombopag Maleate 20 MG Oral Tablet Take 1 tablet by mouth in the morning. 30 Tablet 5 11/13/2023 4 Discontinue d(Refill) documented as of this encounter (statuses as of 04/22/2024) Active Problems Problem Noted Date Diagnosed Date [...] as of this encounter (statuses as of 04/22/2024) Resolved Problems Problem Noted Date Diagnosed Date Resolved Date Chronic obstructive pulmonary disease 05/11/2023 06/08/2023 Overview: Per COPD GOLD Classification documented as of this encounter (statuses as of 04/22/2024) Immunizations No known immunizationsdocumented as of this encounter Social History Tobacco Use Types Packs/Day Years Used Date Smoking Tobacco: Former Cigarettes 0.3 5 1 974 - 1978 Passive Smoke Exposure: Never Smokeless Tobacco: Never Alcohol Use Standard Drinks/Week Comments Never 0 (1 standard drink = 0.6 oz pur e alcohol) Utilities Answer Date Recorded Do you have trouble paying y our heating, water, or electric bill? (Adult - for ages 18 years and over) Not on file 01/09/2024 Is your family able to pay t he heat, water, or electric bill? (Household - for ages 0-17 years) Not on file 01/09/2024 Does your family have access to good internet? (Household - for ages 0-17 years) Not on file 01/09/2024 Social Connections Answer Date Recorded How often do you feel lonely or isolated from those around you? (Adult - for ages 18 years and over) Not on file 01/09/2024 Sex and Gender Information Value Date Recorded Sex Assigned at Not on file Gender Identity Not on file Sexual Orientation Not on file Job Start Date Occupation Industry Not on file Not on file Not on file documented as of this encounter Miscellaneous Notes * Telephone Encounter - Winter Avalos, [facility] - 04/22/2024 3:40 PM EDT Signed Prescriptions: Disp Refills Doptelet 20 MG Oral Tablet (Avatrombopag M*25 Tab*5 Sig: Take 20mg by mouth daily except for Monday and Monday.Authorizing Provider: LAYO CHOI User: WINTER AVALOS * Telephone Encounter - Winter Avalos RPh - 04/22/2024 3:39 PM EDT Refill Request EPIC Note Clinical Pharmacy Service [...] (12 months for MPN patients) Yes - 04/10/24 If the labs were completed per prescribing information recommendations or provider recommendations Yes - 04/10/24 If the labs were within normal limits or stable at baseline yes If the dose was correct and/or if the prescription sig reflects the current prescribed dose No - DRto 20mg M-F. Updated RX sent to P If there were any new drug interactions with the patient's oral chemotherapy no If there were any care gaps/baseline labs that need to be addressed no Winter Avalos RPh Ambulatory Clinical Pharmacist | Oral Chemotherapy Clinic [facility] 04/22/2024, 3:40 PM documented in this encounter Plan of Treatment Upcoming Encounters Date Type Department Care Team (Late st Contact Info) Description 05/10/2024 9:00 AM EDT Pharmacy Pharmacy Hematology Oncology [facility] [address] [place] [address] [facility] Clinic Hem/Onc [address] [place] [address] 05/10/2024 9:10 AM EDT Laboratory Laboratory [facility] [place] [address] [place] [phone] [facility] [address] Scen[address] [facility] [place] [address] 05/27/2024 1:20 PM EST Office Visit [facility] [place] [address] Toshia Reynaga DO 132 [facility] [place] [address] 06/10/2024 9:00 AM EST Laboratory Laboratory [facility] [place] [address] [place] [phone] [facility] [address] [facility] [place] [address] 06/19/2024 9:15 AM EST Office Visit MOHS Surgery [facility] [place] [address] [place] [address] Nichole Werner MD [address] [place] [address] 07/03/2024 9:00 AM EST Laboratory Laboratory [facility] [place] [address] [place] [phone] [facility] [address] [facility] [place] [address] 07/10/2024 1:30 PM EST Office Visit Hematology/Oncology [facility] [place] [address] [place] [phone] Ama Maldonado CRNP [address] [place] [address] 07/31/2024 10:20 AM EST Office Visit Pulmonary Medicine, [facility] [address] [place] [address] Enrique Fernandez MD [address] [place] [phone] Health Maintenance Due Date Last Done Comments Pneumococcal Vaccine: 65+ Years (1 of 2 - PCV) 09/29/1941 Depression Screening 1947 DTap/Tdap Vaccines (1 - Tdap) 09/29/1954 Zoster Vaccines (1 of 2) 09/29/1985 CKD PHOS USE SMARTSET 75345 11/11/2023 11/10/2022 COVID-19 Vaccine ( season) 2024 Influenza Vaccine (FLU shot) (#1) 2024 Albumin/Creatinine Ratio 05/11/2024 05/11/2023, 07/24 Adult Wellness Visit 01/23/2025 01/24/2024 CKD HGB USE SMARTSET 24993 04/10/202504/10, 04/10/2024, 03/08/2024, Additional history exists O2 ASSESSMENT COMPLETED IN PAST YEAR FOR COPD 04/10/2025 04/10/2024 DXA Scan 12/07/2032 12/07/2022 Alpha-1 Antitrypsin Completed 07/26/2023 HPV (Gardasil) Vaccine Aged Out No lo [...] filedocumented as of this encounter Care Teams Co Chairman Relationship Specialty Start Date End Date Toshia Reynaga DO [address] [place] [address] PCP - General Family Medicine 12/07/22 documented as of this encounter"
--- OUTSIDE RECORDS SUMMARY | 2024-09-05 22:33 | External Medical Summary ---
Author Name Unknown Address Unknown Organization K0G:[facility] [place] [address] [place] [address] Laboratory Report Ordering Provider Test Date Status RAMU VASQUES 06/27/2024 14:30:11 Final Observation Date Value Abnormality Reference (Units ) Status WBC, Total 06/27/2024 14:30:11 8.71 4.00-10.8 0 (K/uL) Final RBC 06/27/2024 14:30:11 3.32 3.85-5.15 (M/uL) Final Hemoglobin 06/27/2024 14:30:11 10.1 Below low normal 12 .0-15.3 (g/dL) Final HCT 06/27/2024 14:30:11 31.2 Below low normal 36. 0-45.2 (%) Final MCV 06/27/2024 14:30:11 94.0 81.5-97.5 (fL) Final MCH 06/27/2024 14:30:11 30.4 27.0-34.0 (pg) Final MCHC 06/27/2024 14:30:11 32.4 32.0-36.0 (g/dL) Final RDW 06/27/2024 14:30:11 13.2 11.5-15.5 (%) Final Platelets 06/27/2024 14:30:11 392 140-400 (K /uL) Final MPV 06/27/2024 14:30:11 10.1 6.6-11.1 ( fL) Final Performing Location [facility] [place] [address] [place] [address]
--- OUTSIDE RECORDS SUMMARY | 2024-09-05 22:33 | External Medical Summary | Summary of Care ---
Author Name Unknown Organization [facility] Address [address] [place] [address] Phone [phone] Care Team Providers Care Noodle Catalyst Maker Name Role Phone Toshia Reynaga DO Primary Care Provider [phone] Reason for Visit * Reason Onset Date Comments Advice 04/17/2024 FYI 04/17/2024 Encounter Details Date Type Department Care Team (Late st Contact Info) Description 04/17/2024 Telephone Family Practice [facility] [address] [facility] [place] [address] Toshia Reynaga DO [address] [place] [address] Advice; Allergies Active Allergy Reactions Criticality Noted Date Comments Lisinopril Other (Please comment) 05/06/2022 Burning in throat documented as of this encounter (statuses as of 04/18/2024) Medications Medication Sig Dispensed Refills Start Date [...] or Wheezing. 54 g 3 10/12/2023 Active Avatrombopag Maleate 20 MG Oral Tablet Take 1 tablet by mouth in the morning. 30 Tablet 5 11/13/2023 Active Additional Information Patient taking differently:20 mg OralMTWTF, Reported on 01/11/2024 Apixaban 2.5 MG Oral Tablet (Eliquis) Take [...] 180 Blister Dosing Unit 1 04/17/2024 Active documented as of this encounter (statuses as of 04/18/2024) Active Problems Problem Noted Date Diagnosed Date [...] as of this encounter (statuses as of 04/18/2024) Resolved Problems Problem Noted Date Diagnosed Date Resolved Date Chronic obstructive pulmonary disease 05/11/2023 06/08/2023 Overview: Per COPD GOLD Classification documented as of this encounter (statuses as of 04/18/2024) Immunizations No known immunizationsdocumented as of this [...] Telephone Encounter - Toshia Reynaga DO - 04/18/2024 2:07 PM EDT noted * Telephone Encounter - Cee Diaz OSA - 04/18/2024 11:27 AM EDT Pt states she does not need an appt and she is using miralax, also told her about benafiber, she will call if she starts to get pain again for an appt * Telephone Encounter - Toshia Reynaga DO - 04/17/2024 1:21 PM EDT Can schedule appt Agree with miralax,also can try benafiber * Telephone Encounter - Jazmyn Tucker LPN - 04/17/2024 11:25 AM EDT Sheryl calling from [place]. Has had episode of abdominal pain for about 30 minutes yesterday. They did move small amount yesterday. Blood pressure is 135//58 p 51 Constipated a lot. Using otc stool softeners. Patient was not using miralax Sheryl recommended she use miralax at least a half a capful daily. Patient is only 110 lbs. Asking for any advice for the patient. * Telephone Encounter - Estefani Merritt OSA - 04/17/2024 11:21 AM EDT Reason for patient's call: patient experiencing constipation and abdominal pain Caller was transferred to [facility] at the nurse line. documented in this encounter Plan of Treatment Upcoming Encounters Date Type Department Care Team (Late st Contact Info) Description 05/10/2024 9:00 AM EDT Pharmacy Pharmacy Hematology Oncology [facility] [address] [place] [address] [facility], [facility] Hem/Onc [address] [place] [address] 05/10/2024 9:10 AM EDT Laboratory Laboratory [facility] [place] [address] [place] [phone] [place] [address] [facility] [place] [address] 05/27/2024 1:20 PM EST Office Visit [facility] [place] [address] Toshia Reynaga DO [facility] [address] 06/10/2024 9:00 AM EST Laboratory Laboratory [facility] [place] [address] [place] [phone] [place] [address] [place] [place] [address] 06/19/2024 9:15 AM EST Office Visit MOHS Surgery [facility] [place] [address] [place] [address] Nichole Werner MD [address] [place] [address] 07/03/2024 9:00 AM EST Laboratory Laboratory [facility] [place] [address] [place] [phone] [place] Lab [facility] [address] [facility] [place] [address] 07/10/2024 1:30 PM EST Office Visit Hematology/Oncology [facility] [place] [address] [place] [phone] Ama Maldonado, LOLITA [address] [facility] [place] [address] 07/31/2024 10:20 AM EST Office Visit Pulmonary Medicine, [facility] [address] [place] [address] Enrique Fernandez MD [address] [place] [address] Health Maintenance Due Date Last Done Comments Pneumococcal Vaccine: 65+ Years (1 of 2 - PCV) 09/29/1941 Depression Screening 1947 DTap/Tdap Vaccines (1 - Tdap) 09/29/1954 Zoster Vaccines (1 of 2) 09/29/1985 CKD PHOS USE SMARTSET 95402 11/11/2023 11/10/2022 COVID-19 Vaccine (1 - season) 2024 Influenza Vaccine (FLU shot) (#1) 2024 Albumin/Creatinine Ratio 05/11/2024 05/11/2023, 07/24 Adult Wellness Visit 01/23/2025 01/24/2024 CKD HGB USE SMARTSET 03814 04/10/202504/10, 04/10/2024, 03/08/2024, Additional history exists O2 [...] filedocumented as of this encounter Care Teams Noodle Catalyst Maker Relationship Specialty Start Date End Date Toshia Reynaga DO [address] [place] [address] PCP - General Family Medicine 12/07/22 documented as of this encounter
--- OUTSIDE RECORDS SUMMARY | 2024-09-05 22:33 | External Medical Summary ---
Author Name Unknown Address Unknown Organization K09[facility] [place] [address] Laboratory Report Ordering Provider Test Date Status RAMU VASQUES 04/10/2024 12:58:34 Final Observation Date Value Abnormality Reference (Units ) Status WBC, Total 04/10/2024 12:58:34 8.22 4.00-10.8 0 (K/uL) Final RBC 04/10/2024 12:58:34 2.98 3.85-5.15 (M/uL) Final Hemoglobin 04/10/2024 12:58:34 9.2 Below low normal 12 .0-15.3 (g/dL) Final HCT 04/10/2024 12:58:34 28.8 Below low normal 36. 0-45.2 (%) Final MCV 04/10/2024 12:58:34 96.6 81.5-97.5 (fL) Final MCH 04/10/2024 12:58:34 30.9 27.0-34.0 (pg) Final MCHC 04/10/2024 12:58:34 31.9 32.0-36.0 (g/dL) Final RDW 04/10/2024 12:58:34 14.2 11.5-15.5 (%) Final Platelets 04/10/2024 12:58:34 284 140-400 (K /uL) Final MPV 04/10/2024 12:58:34 10.4 6.6-11.1 ( fL) Final Performing Location [facility] [place] [address]
--- OUTSIDE RECORDS SUMMARY | 2024-09-05 22:33 | External Medical Summary | Summary of Care ---
Author Name Unknown Organization [facility] Address [address] [place] [address] Phone [phone] Care Team Providers Care Apricot Washer Name Role Phone Toshia Reynaga DO Primary Care Provider [phone] Reason for Visit * Reason Onset Date Comments Advice 02/08/2024 Encounter Details Date Type Department Care Team (Late st Contact Info) Description 02/08/2024 Telephone Family Practice [facility] [address] [facility] [place] [address] Toshia Reynaga DO [address] [place] [address] Advice Allergies Active Allergy Reactions Criticality Noted Date Comments Lisinopril Other (Please comment) 05/06/2022 Burning in throat documented as of this encounter (statuses as of 05/09/2024) Medications Medication Sig Dispensed Refills Start Date [...] mouth every 6 hours as needed. Active Spacer/Aero-Holding Chambers Device Use with inhaler. [...] the morning. 90 Tablet 1 12/13/2023 Active documented as of this encounter (statuses as of 05/09/2024) Active Problems Problem Noted Date Diagnosed Date [...] as of this encounter (statuses as of 05/09/2024) Resolved Problems Problem Noted Date Diagnosed Date Resolved Date Chronic obstructive pulmonary disease 05/11/2023 06/08/2023 Overview: Per COPD GOLD Classification documented as of this encounter (statuses as of 05/09/2024) Immunizations No known immunizationsdocumented as of this [...] encounter Miscellaneous Notes * Telephone Encounter - Aline Andrew OSA - 02/08/2024 11:04 AM EDT Pt called wanting to know if she should refill Ferrous Sulfate. She is done to 2 pills. documented in this encounter Plan of Treatment Upcoming Encounters Date Type Department Care Team (Late st Contact Info) Description 05/10/2024 9:00 AM EDT Pharmacy Pharmacy Hematology Oncology [facility] [address] [place] [address] [facility], [facility] Hem/Onc [address] [place] [address] 05/10/2024 9:10 AM EDT Laboratory Laboratory [facility] [address] [place] [address] [place], Lab Scenery [address] [place], [place] [address] 05/29/2024 1:00 PM EST Office Visit Family Practice [facility] [address] Constantino Syed MD [address] [facility] [address] 06/10/2024 9:00 AM EST Laboratory Laboratory [facility] [address] [place], [place] [phone] [place], Lab Scenery [address] [place], [place] [address] 06/19/2024 9:15 AM EST Office Visit MOHS Surgery [facility] [address] [place], [place] [address] Nichole Werner MD [address] [place], [place] [address] 07/03/2024 9:00 AM EST Laboratory Laboratory [facility] [address] [place], [place] [phone] [place], Lab Scenery [address] [place], [place] [address] 07/10/2024 1:30 PM EST Office Visit Hematology/Oncology [facility] [address] [place], [place] [phone] Ama Maldonado, LOLITA [address] [place] [address] [place], [place] [phone] 07/31/2024 10:20 AM EST Office Visit Pulmonary Medicine, [facility] 132 [facility] [place] [address] Enrique Fernandez MD [address] [place] [phone] Health Maintenance Due Date Last Done Comments Pneumococcal Vaccine: 65+ Years (1 of 2 - PCV) 09/29/1941 Depression Screening 1947 DTap/Tdap Vaccines (1 - Tdap) 09/29/1954 Zoster Vaccines (1 of 2) 09/29/1985 CKD PHOS USE SMARTSET 44066 11/11/2023 11/10/2022 COVID-19 Vaccine (1 - season) 2024 Influenza Vaccine (FLU shot) (#1) 2024 Albumin/Creatinine Ratio 05/11/2024 05/11/2023, 07/24 Adult Wellness Visit 01/23/2025 01/24/2024 CKD HGB USE SMARTSET 25485 04/10/202504/10, 04/10/2024, 03/08/2024, Additional history exists O2 [...] filedocumented as of this encounter Care Teams Apricot Washer Relationship Specialty Start Date End Date Toshia Reynaga DO [address] [place] [address] PCP - General Family Medicine 12/07/22 documented as of this encounter
--- OUTSIDE RECORDS SUMMARY | 2024-09-05 22:33 | External Medical Summary | Summary of Care ---
Author Name Unknown Organization [facility] Address [address] [place] [address] Phone [phone] Care Team Providers Care African Studies Professor Name Role Phone Toshia Reynaga DO Primary Care Provider [phone] Reason for Visit * Reason Comments Outpatient Testing Encounter Details Date Type Department Care Team (Late st Contact Info) Description 04/10/2024 1:00 PM EDT Laboratory Laboratory [facility] [address] [place] [address] [place], Lab Scenery [address] [place] [address] Chronic ITP (idiopathic thrombocytopenia) (HCC) Allergies Active Allergy Reactions Criticality Noted Date Comments Lisinopril Other (Please comment) 05/06/2022 Burning in throat documented as of this encounter (statuses as of 04/10/2024) Medications Medication Sig Dispensed Refills Start Date [...] 180 Blister Dosing Unit 1 10/12/2023 Active Avatrombopag Maleate 20 MG Oral [...] evening meals. 180 Tablet 1 02/22/2024 Active documented as of this encounter (statuses as of 04/10/2024) Active Problems Problem Noted Date Diagnosed Date [...] as of this encounter (statuses as of 04/10/2024) Resolved Problems Problem Noted Date Diagnosed Date Resolved Date Chronic obstructive pulmonary disease 05/11/2023 06/08/2023 Overview: Per COPD GOLD Classification documented as of this encounter (statuses as of 04/10/2024) Immunizations No known immunizationsdocumented as of this [...] Care Team (Late st Contact Info) Description 04/10/2024 1:30 PM EDT Office Visit Hematology/Oncology [facility] [address] [place] [address] Ama Maldonado CRNP [address] [place] [address] [place] [address] Arrived 04/26/2024 9:20 AM EDT Office Visit Family Practice [facility] [place] [address] Toshia Reynaga DO 132 [facility] [place] [address] 05/10/2024 9:00 AM EDT Pharmacy Pharmacy Hematology Oncology [facility] [address] [place] [address] [facility], [facility] Hem/Onc [address] [place] [address] 06/19/2024 9:15 AM EST Office Visit [facility] Surgery [facility] [address] [place] [address] Nichole Werner MD 200 [place] [address] 07/31/2024 10:20 AM EST Office Visit Pulmonary Medicine, [facility] [place] [address] Enrique Fernandez MD [address] [facility] [place] [phone] Health Maintenance Due Date Last Done Comments Pneumococcal Vaccine: 65+ Years (1 of 2 - PCV) 09/29/1941 Depression Screening 1947 DTap/Tdap Vaccines (1 - Tdap) 09/29/1954 Zoster Vaccines (1 of 2) 09/29/1985 CKD PHOS USE SMARTSET 12665 11/11/2023 11/10/2022 COVID-19 Vaccine (1 - season) 2024 Influenza Vaccine (FLU shot) (#1) 2024 Albumin/Creatinine Ratio 05/11/2024 05/11/2023, 07/24 Adult Wellness Visit 01/23/2025 01/24/2024 CKD HGB USE SMARTSET 88045 03/08/202504/10, 04/10/2024, 03/08/2024, Additional history exists O2 ASSESSMENT COMPLETED IN PAST YEAR FOR COPD 03/08/2025 03/08/2024 DXA Scan 12/07/2032 12/07/2022 Alpha-1 Antitrypsin Completed [...] Date/Time Associated Diagnosis Comments DIFFERENTIAL, AUTOMATED STAT 04/10/2024 12:58 PM EDT Chronic ITP (idiopathic thrombocytopenia) (HCC) CBC STAT 04/10/2024 12:58 PM EDT Chronic ITP (idiopathic thrombocytopenia) (HCC) CBC STAT 04/10/2024 12:58 PM EDT Chronic ITP (idiopathic thrombocytopenia) (HCC) documented in this encounter Results * DIFFERENTIAL, AUTOMATED (04/10/2024 12:58 PM EDT) WBC 8.22 4.00 - 10.80 K/uL 04/10/2024 1:03 PM EDT [facility] 56-02 Neutrophils % 61.8 40.0 - 75.0 % 04/10/2024 1:03 PM EDT [facility] 56-02 Lymphocytes % 27.0 18.0 - 42.0 % 04/10/2024 1:03 PM EDT [facility] 56-02 Monocytes % 8.0 1.0 - 11.0 % 04/10/2024 1:03 PM EDT [facility] 56-02 Eosinophils % 2.7 0.0 - 6.0 % 04/10/2024 1:03 PM EDT [facility] 56-02 Basophils % 0.5 0.0 - 2.0 % 04/10/2024 1:03 PM EDT [facility] 56 Absolute Neutrophils 5.08 1.80 - 7.70 K/uL 04/10/2024 1:03 PM EDT [facility] 56 Absolute Lymphocytes 2.22 1.00 - 4.80 K/ul 04/10/2024 1:03 PM EDT [facility] 56 Absolute Monocytes 0.66 0.00 - 1.10 K/uL 04/10/2024 1:03 PM EDT [facility] 56 Absolute Eosinophils 0.22 0.00 - 0.70 K/uL 04/10/2024 1:03 PM EDT [facility] 56 Absolute Basophils 0.04 0.00 - 0.20 K/uL 04/10/2024 1:03 PM EDT [facility] 56 Blood Venous blood specimen / Unknown Venipuncture / Unknown 04/10/2024 12:58 PM EDT 04/10/2024 12:58 PM EDT Zeeshan Choi MD LAB BLOOD ORDERABLES [facility] [address] [place] [address] * (ABNORMAL) CBC (04/10/2024 12:58 PM EDT) WBC 8.22 4.00 - 10.80 K/uL 04/10/2024 1:03 PM EDT [facility] 56 RBC 2.98 3.85 - 5.15 M/uL 04/10/2024 1:03 PM EDT [facility] 56 HGB 9.2(L) 12.0 - 15.3 g/dL 04/10/2024 1:03 PM EDT [facility] 56 HCT 28.8(L) 36.0 - 45.2 % 04/10/2024 1:03 PM EDT [facility] 56 MCV 96.6 81.5 - 97.5 fL 04/10/2024 1:03 PM EDT [facility] 56 MCH 30.9 27.0 - 34.0 pg 04/10/2024 1:03 PM EDT [facility] 56 MCHC 31.9 32.0 - 36.0 g/dL 04/10/2024 1:03 PM EDT [facility] 56 RDW 14.2 11.5 - 15.5 % 04/10/2024 1:03 PM EDT [address] 284 140 - 400 K/uL 04/10/2024 1:03 PM EDT [address] MPV 10.4 6.6 - 11.1 fL 04/10/2024 1:03 PM EDT [facility] 56 Blood Venous blood specimen / Unknown Venipuncture / Unknown 04/10/2024 12:58 PM EDT 04/10/2024 12:58 PM EDT Zeeshan Choi MD LAB BLOOD ORDERABLES [facility] [address] [place] [address] documented in this encounter Visit Diagnoses Diagnosis 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
--- OUTSIDE RECORDS SUMMARY | 2024-09-05 22:33 | External Medical Summary ---
Author Name Unknown Address Unknown Organization K09:[facility] [place] [address] Laboratory Report Ordering Provider Test Date Status RAMU VASQUES 05/10/2024 09:11:08 Final Observation Date Value Abnormality Reference (Units ) Status SYNC LEUKOCYTES IN BLOOD BY AUTOMATED COUNT 05/10/2024 09:11:08 7.81 4.00-10.80 (K/uL) Final Segs 05/10/2024 09:11:08 59.5 40.0-75.0 (%) Final Lymphs % 05/10/2024 09:11:08 26.5 18.0-42.0 (%) Final Monos 05/10/2024 09:11:08 9.2 1.0-11.0 (%) Final Eosinophils 05/10/2024 09:11:08 4.4 0.0-6.0 (%) Final Basos 05/10/2024 09:11:08 0.4 0.0-2.0 (%) Final Absolute Segs 05/10/2024 09:11:08 4.65 1.80-7.70 (K/uL) Final Lymphs, absolute 05/10/2024 09:11:08 2.07 1.00-4.80 (K/ul) Final Monos, Abs 05/10/2024 09:11:08 0.72 0.00-1.10 (K/uL) Final Eos, Abs 05/10/2024 09:11:08 0.34 0.00-0.70 (K/uL) Final Basos, Abs 05/10/2024 09:11:08 0.03 0.00-0.20 (K/uL) Final Performing Location [facility] [place] [address]
--- OUTSIDE RECORDS SUMMARY | 2024-09-05 22:33 | External Medical Summary | Summary of Care ---
Author Name Unknown Organization [facility] Address [address] [place] [address] Phone [phone] Care Team Providers Care Electric Distribution Engineer Name Role Phone Toshia Reynaga DO Primary Care Provider [phone] Reason for Visit * Reason Comments Outpatient Testing Encounter Details Date Type Department Care Team (Late st Contact Info) Description 05/10/2024 9:10 AM EDT Laboratory Laboratory [facility] [address] [place] [phone] [place], Lab Scenery [address] [place] [address] Chronic ITP (idiopathic thrombocytopenia) (HCC) Allergies Active Allergy Reactions Criticality Noted Date Comments Lisinopril Other (Please comment) 05/06/2022 Burning in throat documented as of this encounter (statuses as of 05/10/2024) Medications Medication Sig Dispensed Refills Start Date [...] and Monday. 25 Tablet 5 04/22/2024 Active documented as of this encounter (statuses as of 05/10/2024) Active Problems Problem Noted Date Diagnosed Date [...] as of this encounter (statuses as of 05/10/2024) Resolved Problems Problem Noted Date Diagnosed Date Resolved Date Chronic obstructive pulmonary disease 05/11/2023 06/08/2023 Overview: Per COPD GOLD Classification documented as of this encounter (statuses as of 05/10/2024) Immunizations No known immunizationsdocumented as of this [...] Care Team (Late st Contact Info) Description 05/29/2024 1:00 PM EST Office Visit Family Practice [facility] [address] [place] [address] Constantino Syed MD [address] [place] [address] 06/10/2024 9:00 AM EST Laboratory Laboratory [facility] [address] [place], [place] [phone] [place], Lab Scenery [address] [facility] [place], [place] [address] 06/19/2024 9:15 AM EST Office Visit MOHS Surgery [facility] [address] [place], [place] [address] Nichole Werner MD [address] [place], [place] [address] 07/03/2024 9:00 AM EST Laboratory Laboratory [facility] [address] [place], [place] [phone] [place] Lab Scenery [address] [place], [place] [address] 07/10/2024 1:30 PM EST Office Visit Hematology/Oncology [facility] [address] [place], [place] [phone] Ama Maldonado, LOLITA [address] [place], [place] [address] [phone] 07/31/2024 10:20 AM EST Office Visit Pulmonary Medicine, [facility] 132 [facility] [place] [address] Enrique Fernandez MD [address] [place] [facility] [place] [address] Pending Results Name Type Priority Associated Diagnoses Date /Time CBC WITH WBC DIFFERENTIAL Lab STAT Chronic ITP (idiopathic thrombocytopenia) ([facility]) 05/10/2024 9:11 AM EDT CBC Lab STAT Chronic ITP (idiopathic thrombocytopenia) ([facility]) 05/10/2024 9:11 AM EDT DIFFERENTIAL, AUTOMATED Lab STAT Chronic ITP (idiopathic thrombocytopenia) ([facility]) 05/10/2024 9:11 AM EDT Health Maintenance Due Date Last Done Comments Pneumococcal Vaccine: 65+ Years (1 of 2 - PCV) 09/29/1941 Depression Screening 1947 DTap/Tdap Vaccines (1 - Tdap) 09/29/1954 Zoster Vaccines (1 of 2) 09/29/1985 CKD PHOS USE SMARTSET 56205 11/11/2023 11/10/2022 COVID-19 Vaccine (1 - season) 2024 Influenza Vaccine (FLU shot) (#1) 2024 Albumin/Creatinine Ratio 05/11/2024 05/11/2023, 07/24 Adult Wellness Visit 01/23/2025 01/24/2024 CKD HGB USE SMARTSET 68869 04/10/202504/10, 04/10/2024, 03/08/2024, Additional history exists O2 [...] purpura documented in this encounter Care Teams Electric Distribution Engineer Relationship Specialty Start Date End Date Toshia Reynaga DO [address] [place] [address] PCP - General Family Medicine 12/07/22 documented as of this encounter
--- OUTSIDE RECORDS SUMMARY | 2024-09-05 22:33 | External Medical Summary | Summary of Care ---
Author Name Unknown Organization [facility] Address [address] [place] [address] Phone [phone] Care Team Providers Care Diagnostic Imaging Manager Name Role Phone Toshia Reynaga DO Primary Care Provider [phone] Reason for Visit * Reason Comments Medication Management Encounter Details Date Type Department Care Team (Late st Contact Info) Description 05/10/2024 9:00 AM EDT Pharmacy Pharmacy Hematology Oncology [facility] [address], [place] [id number] [facility] Hem/Onc [address], [place] [id number] Chronic ITP (idiopathic thrombocytopenia) (HCC)* Allergies Active [...] this encounter Progress Notes * Gifty Irizarry, [facility] - 05/10/2024 1:24 PM EDT MEDICATION THERAPY MANAGEMENT AVATROMBOPAG TREATMENT PROGRESS NOTE Edilma Kennedy [id number] Patient Phone Numbers son Christian Son: Christian Communication: Spoke to: Patient Treatment: Medication: Avatrombopag (Doptelet) Indication/Staging/Diagnosis Code: ITP/D69.3 Dose: 20mg M-F ( 01/11/24) Administration: with food Start Date: November 2019 Primary Automotive Repair Technician/Oncologist: Dr. Gabriel Choi Additional therapy: Rutiximab x 2 Dose adjustment / medication hold: 09/14/23-09/24/23: avatrombopag held due to thrombocytosis (PLT 919K) 09/25/23: resume avatrombopag at 20mg daily 10/25/23-11/06/23: avatrombopag held due to thrombocytosis (PLT 684K) 01/11/24: avatrombopag DR 20mg M-F due to ongoing thrombocytosis Interval History: Pt admitted to [facility] 05/23/22 for bleeding and PLT < 10K and transferred to [facility] 05/24/22 and discharged 06/18/22 Admitted to [facility] 09/01/23-09/06/23 for CHF/COPD exacerbation - avatrombopag continued during admission despite PLT 718K 09/01/23 Admitted to [facility] 10/18/23-10/22/23 for COPD exacerbation Admitted to [facility] 11/09/23-11/12/23 for thrombocytopenia and received methylprednisolone and increased dose of avatrombopag 40mg daily Admitted to [facility] 11/15/23-11/19/23 for symptomatic a fib and discharged on apixaban Administered avatrombopag 40mg daily while admitted Per TE 11/17/23, pt okay to receive apixaban given elevated PLT Per OV 02/14/24, lab monitoring extended to monthly Pt was not able to hear well but states she is doing good Pt confirmed dosing Mon-Fri Changes to medication list since last visit? No Assessment and plan: PLT above goal (50-200K) but stable Hgb low but improving CBC otherwise stable As per discussion with Dr Choi, continue current dosing Continue current avatrombopag dose Repeat labs scheduled 06/10 Verified standing lab orders available Assessment of compliance: compliant Dose adjustment needed based on lab or adverse drug reaction? No Follow up: 1 month MTM with labs Gifty Irizarry, PharmD, BCOP Clinical Pharmacist [facility] 05/10/2024, 1:34 PM Pertinent labs: Latest Reference Range & Units 03/08/24 15:23 04/10/24 12:58 05/10/24 09:11 WBC 4.00 - 10.80 K/uL 8.05 8.22 7.81 RBC 3.85 - 5.15 M/uL 3.35 2.98 3.10 HGB 12.0 - 15.3 g/dL 10.1 (L) 9.2 (L) 9.6 (L) HCT 36.0 - 45.2 % 31.3 (L) 28.8 (L) 30.2 (L) MCV 81.5 - 97.5 fL 93.4 96.6 97.4 MCH 27.0 - 34.0 pg 30.1 30.9 31.0 MCHC 32.0 - 36.0 g/dL 32.3 31.9 31.8 RDW 11.5 - 15.5 % 13.7 14.2 13.9 PLT 140 - 400 K/uL 247 284 418 (H) MPV 6.6 - 11.1 fL 10.6 10.4 9.9 CBC WITH WBC DIFFERENTIAL Rpt ! Rpt ! Rpt ! Absolute Neutrophils 1.80 - 7.70 K/uL 5.20 5.08 4.65 Absolute Lymphocytes 1.00 - 4.80 K/ul 2.14 2.22 2.07 (L): Data is abnormally low (H): Data is abnormally high !: Data is abnormal Rpt: View report in Results Review for more information Time Spent on Encounter: 6 - 10 minutes Encounter Group: Hematology Encounter Interventions Item Category: Oral Chemotherapy Other: Avatrombopag Problem/Rationale: Safety: Needs additional monitoring - Medication Requires monitoring Pharmacist Intervention(s): Clarification with Provider and Lab monitoring Magnitude of Intervention: Monitoring with direction (Level 1) documented in this encounter Plan of Treatment Upcoming Encounters Date Type Department Care Team (Late st Contact Info) Description 05/29/2024 1:00 PM EST Office Visit [facility] [address] [address] Constantino Syed MD 132 [facility] [place] [address] 06/10/2024 9:00 AM EST Laboratory Laboratory [facility] [address] [place] [phone] [facility] [address] [place] [address] 06/10/2024 4:00 PM EST Pharmacy Pharmacy Hematology Oncology [facility] [address] [place] [address] [facility] Hem/Onc [address] [place] [address] 06/19/2024 9:15 AM EST Office Visit MOHS Surgery [facility] [address] [place], [place] [address] Nichole Werner MD [address] [place] [address] 07/03/2024 9:00 AM EST Laboratory Laboratory [facility] [address] [place] [phone] [facility] [address] [facility] [place], [place] [address] 07/10/2024 1:30 PM EST Office Visit Hematology/Oncology [facility] [address] [place] [phone] Ama Maldonado, LOLITA [address] [place] [address] 07/31/2024 10:20 AM EST Office Visit Pulmonary Medicine, [facility] 132 [facility] [place] [address] Enrique Fernandez MD [address] [facility] [address] Health Maintenance Due Date Last Done Comments Pneumococcal Vaccine: 65+ Years (1 of 2 - PCV) 09/29/1941 Depression Screening 1947 DTap/Tdap Vaccines (1 - Tdap) 09/29/1954 Zoster Vaccines (1 of 2) 09/29/1985 CKD PHOS USE SMARTSET 01693 11/11/2023 11/10/2022 COVID-19 Vaccine (1 - season) 2024 Influenza Vaccine (FLU shot) (#1) 2024 Albumin/Creatinine Ratio 05/11/2024 05/11/2023, 07/24 Adult Wellness Visit 01/23/2025 01/24/2024 O2 ASSESSMENT COMPLETED IN PAST YEAR FOR COPD 04/10/2025 04/10/2024 CKD HGB USE SMARTSET 12193 05/10/202505/10, 05/10/2024, 04/10/2024, Additional history exists DXA Scan 12/07/2032 12/07/2022 [...] purpura documented in this encounter Care Teams Diagnostic Imaging Manager Relationship Specialty Start Date End Date Toshia Reynaga DO [address] [place] [address] PCP - General Family Medicine 12/07/22 documented as of this encounter
--- OUTSIDE RECORDS SUMMARY | 2024-09-05 22:33 | External Medical Summary | Summary of Care ---
Author Name Unknown Organization [facility] Address [address] [place] [address] Phone [phone] Care Team Providers Care Manager Aerospace Name Role Phone Toshia Reynaga DO Primary Care Provider [phone] Reason for Visit * Reason Onset Date Comments Follow Up 05/09/2024 Encounter Details Date Type Department Care Team (Late st Contact Info) Description 05/09/2024 Telephone Family Practice [facility] [address] [place] [facility] [place] [address] Toshia Reynaga DO [address] [place] [address] Follow Up Allergies Active Allergy Reactions Criticality [...] basal cell carcinoma (L superior parietal scalp 2019), R medial inferior forehead 5/23, L inferior [...] Telephone Encounter - Constantino Syed MD - 05/09/2024 10:54 AM EDT MD Tushar aware. * Telephone Encounter - Gerda Ly LPN - 05/09/2024 8:55 AM EDT Spoke with Antoni network program manager from [facility]. She speaks with Edilma every 2 weeks. Patient reported that her Metoprolol causes fatigued, took her medication last night at 1030 pm. "Seemed off thismorning, she did tell me she had weird dreams last night too" Chronic constipation - reported to Antoni that she is taking a stool softener PRN. Yesterday she hadhard stool and abdominal pain. Edilma admitted she doesn't drink enough water. Antoni encouraged her to increase her water intake and try to get more activity. Patient reported BP "134/something" HR 57 Denies swelling. Non productive cough in the AM, resolves quickly. Called patient to follow up. She woke up early this morning because she thought she had the lab appt today, so she was tired when Antoni called. Patient is feeling her normal self. Intermittent weird dreams, denies nightmares. Denies UTI symptoms (burning, urgency, hematuria) <Frequency + not new, on Lasix> Discussed her constipation, she is taking Colace every few days. Advised patient to take Miralax onher med list, she is agreeable. She has no concerns at this time. FYI - next appt 05/29/[address] Syed * Telephone Encounter - Michela Horvath OSA - 05/09/2024 8:51 AM EDT Reason for patient's call: Registered Nurse Antoni Bhandari from [facility] calling in regards to pt lab and medication. Caller was transferred to Gerda at the nurse line. documented in this encounter Plan of Treatment Upcoming Encounters Date Type Department Care Team (Late st Contact Info) Description 05/10/2024 9:00 AM EDT Pharmacy Pharmacy Hematology Oncology [facility] [address] [place] [address] [facility] Hem[facility]Onc [address] [place] [address] 05/10/2024 9:10 AM EDT Laboratory Laboratory [facility] [place] [address] [place] [phone] [place] [address] [place] [address] 05/29/2024 1:00 PM EST Office Visit [facility] 132 [facility] [place] [address] Constantino Syed MD [address] [facility] [place] [address] 06/10/2024 9:00 AM EST Laboratory Laboratory [facility] [address] [place] [phone] [place] [address] [place], [place] [address] 06/19/2024 9:15 AM EST Office Visit MOHS Surgery [facility] [place] [address] [place], [place] [address] Nichole Werner MD [address] [place], [place] [address] 07/03/2024 9:00 AM EST Laboratory Laboratory [facility] [place] [address] [place] [phone] [facility] [address] [place], [place] [address] 07/10/2024 1:30 PM EST Office Visit Hematology/Oncology [facility] [place] [address] [place] [phone] Ama Maldonado CRNP [address] [facility] [address] 07/31/2024 10:20 AM EST Office Visit Pulmonary Medicine, [facility] [address] [place] [address] Enrique Fernandez MD [address] [place] [address] Health Maintenance Due Date Last Done Comments Pneumococcal Vaccine: 65+ Years (1 of 2 - PCV) 09/29/1941 Depression Screening 1947 DTap/Tdap Vaccines (1 - Tdap) 09/29/1954 Zoster Vaccines (1 of 2) 09/29/1985 CKD PHOS USE SMARTSET 04239 11/11/2023 11/10/2022 COVID-19 Vaccine (1 - season) 2024 Influenza Vaccine (FLU shot) (#1) 2024 Albumin/Creatinine Ratio 05/11/2024 05/11/2023, 07/24 Adult Wellness Visit 01/23/2025 01/24/2024 CKD HGB USE SMARTSET 85892 04/10/202504/10, 04/10/2024, 03/08/2024, Additional history exists O2 [...] filedocumented as of this encounter Care Teams Manager Aerospace Relationship Specialty Start Date End Date Toshia Reynaga DO [address] [place] [address] PCP - General Family Medicine 12/07/22 documented as of this encounter
--- OUTSIDE RECORDS SUMMARY | 2024-09-05 22:33 | External Medical Summary | Summary of Care ---
Author Name Unknown Organization [facility] Address [address] [place] [address] Phone [phone] Care Team Providers Care Prawn Trawler Hand Name Role Phone Toshia Reynaga DO Primary Care Provider [phone] Reason for Visit * Reason Comments Outpatient Testing Encounter Details Date Type Department Care Team (Late st Contact Info) Description 06/10/2024 9:00 AM EST Laboratory Laboratory [facility] [address] [place] [address] [facility] [address] [place] [address] Chronic ITP (idiopathic thrombocytopenia) (HCC); Stage 3a chronic kidney disease (HCC) Allergies Active Allergy Reactions Criticality Noted Date Comments Lisinopril Other (Please comment) 05/06/2022 Burning in throat documented as of this encounter (statuses as of 06/10/2024) Medications Cyanocobalamin 1000 MCG Oral Tablet Take [...] Monday and Monday. 30 Tablet 4 4 Active Eliquis 2.5 MG Oral Tablet [...] as of this encounter (statuses as of 06/10/2024) Active Problems Problem Noted Date Diagnosed Date [...] as of this encounter (statuses as of 06/10/2024) Resolved Problems Problem Noted Date Diagnosed Date Resolved Date Chronic obstructive pulmonary disease 05/11/2023 06/08/2023 Overview: Per COPD GOLD Classification documented as of this encounter (statuses as of 06/10/2024) Immunizations No known immunizationsdocumented as of this [...] Care Team (Late st Contact Info) Description 06/19/2024 9:15 AM EST Office Visit MOHS Surgery [facility] [address] [place] [address] Nichole Werner MD 200 [facility] [place] [address] 06/27/2024 2:00 PM EST Office Visit Orthopaedics [facility] [address] [place] [address] [address] Adarsh Quevedo PA-C [address] [place] [address] 07/03/2024 9:00 AM EST Laboratory Laboratory [facility] [place] [address] [place] [phone] [place] [facility] [address] [place] [address] 07/10/2024 1:30 PM EST Office Visit [facility]ology[facility] [address] [place] [address] Ama Maldonado CRNP 400 [facility] [place] [address] 07/31/2024 10:20 AM EST Office Visit Pulmonary Medicine, [facility] 132 [facility] [place] [address] Enrique Fernandez MD [address] [place] [phone] Pending Results Name Type Priority Associated Diagnoses Date /Time PHOSPHORUS Lab Routine Stage 3a chronic kidney disease (HCC) 06/10/2024 9:34 AM EST Health Maintenance Due Date Last Done Comments DTap/Tdap Vaccines (1 - Tdap) 09/29/1954 CKD PHOS USE SMARTSET 24557 11/11/2023 11/10/2022 Albumin/Creatinine Ratio 05/11/2024 05/11/2023, 07/24 Adult Wellness Visit 01/23/2025 01/24/2024 CKD HGB USE SMARTSET 25364 05/10/202506/10, 06/10/2024, 05/10/2024, Additional history exists Depression Screening 05/29/2025 05/29/2024 O2 ASSESSMENT COMPLETED IN PAST YEAR FOR COPD 05/29/2025 05/29/2024 DXA Scan 12/07/2032 12/07/2022 Alpha-1 Antitrypsin Completed [...] Date/Time Associated Diagnosis Comments DIFFERENTIAL, AUTOMATED STAT 06/10/2024 9:34 AM EST Chronic ITP (idiopathic thrombocytopenia) (HCC) CBC STAT 06/10/2024 9:34 AM EST Chronic ITP (idiopathic thrombocytopenia) (HCC) CBC STAT 06/10/2024 9:34 AM EST Chronic ITP (idiopathic thrombocytopenia) (HCC) documented in this encounter Results * DIFFERENTIAL, AUTOMATED (06/10/2024 9:34 AM EST) Pathologist [facility] WBC 7.58 4.00 - 10.80 K/uL 06/10/2024 9:39 AM EST [facility]02 Neutrophils % 62.4 40.0 - 75.0 % 06/10/2024 9:39 AM EST [facility] 56-02 Lymphocytes % 26.0 18.0 - 42.0 % 06/10/2024 9:39 AM EST [facility] 56-02 Monocytes % 8.3 1.0 - 11.0 % 06/10/2024 9:39 AM EST [facility] 56-02 Eosinophils % 2.8 0.0 - 6.0 % 06/10/2024 9:39 AM EST [facility] 56-02 Basophils % 0.5 0.0 - 2.0 % 06/10/2024 9:39 AM EST [facility] 56-02 Absolute Neutrophils 4.73 1.80 - 7.70 K/uL 06/10/2024 9:39 AM EST [facility] 56-02 Absolute Lymphocytes 1.97 1.00 - 4.80 K/ul 06/10/2024 9:39 AM EST [facility] 56-02 Absolute Monocytes 0.63 0.00 - 1.10 K/uL 06/10/2024 9:39 AM EST [facility] 56-02 Absolute Eosinophils 0.21 0.00 - 0.70 K/uL 06/10/2024 9:39 AM EST [facility] 56-02 Absolute Basophils 0.04 0.00 - 0.20 K/uL 06/10/2024 9:39 AM EST [facility] 56-02 Blood Venous blood specimen / Unknown Venipuncture / Unknown 06/10/2024 9:34 AM EST 06/10/2024 9:34 AM EST us Zeeshan Choi MD LAB BLOOD ORDERABLES Final Res ult [facility] [address] [place] [address] * (ABNORMAL) CBC (06/10/2024 9:34 AM EST) WBC 7.58 4.00 - 10.80 K/uL 06/10/2024 9:39 AM EST [facility] 56 RBC 3.31 3.85 - 5.15 M/uL 06/10/2024 9:39 AM [facility] 56 HGB 10.1(L) 12.0 - 15.3 g/dL 06/10/2024 9:39 AM [facility] 56 HCT 31.8(L) 36.0 - 45.2 % 06/10/2024 9:39 AM [facility] 56 MCV 96.1 81.5 - 97.5 fL 06/10/2024 9:39 AM [facility] 56 MCH 30.5 27.0 - 34.0 pg 06/10/2024 9:39 AM [facility] 56 MCHC 31.8 32.0 - 36.0 g/dL 06/10/2024 9:39 AM [facility] 56 RDW 13.2 11.5 - 15.5 % 06/10/2024 9:39 AM [facility] 56 PLT 324 140 - 400 K/uL 06/10/2024 9:39 AM [facility] 56 MPV 10.1 6.6 - 11.1 fL 06/10/2024 9:39 AM [facility] 56 Blood Venous blood specimen / Unknown Venipuncture / Unknown 06/10/2024 9:34 AM EST 06/10/2024 9:34 AM EST us Zeeshan Choi MD LAB BLOOD ORDERABLES Final Res ult [facility] 56-02 [address] [facility] [address] documented in this encounter Visit Diagnoses Diagnosis 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
--- OUTSIDE RECORDS SUMMARY | 2024-09-05 22:33 | External Medical Summary | Summary of Care ---
Author Name Unknown Organization [facility] Address [address] [place] [address] Phone [phone] Care Team Providers Care Web Consultant Name Role Phone Cris Simons DO Primary Care Provider [phone] Reason for Visit * Reason Comments eRx-Medication Refill Encounter Details Date Type Department Care Team (Late st Contact Info) Description 05/13/2024 Refill Family Practice [facility] [address] [facility] [place] [address] Cris Simons DO 132 [place] [address] Allergies Active Allergy Reactions Criticality Noted Date Comments Lisinopril Other (Please comment) 05/06/2022 Burning in throat documented as of this encounter (statuses as of 05/14/2024) Medications Medication Sig Dispensed Refills Start Date [...] or Wheezing. 54 g 3 10/12/2023 Active Ferrous Sulfate 325 (65 Fe) MG [...] for Monday and Monday. 30 Tablet 4 04/22/2024 Active Eliquis 2.5 MG Oral Tablet (Apixaban) TAKE 1 TABLET IN THE MORNING AND TAKE 1 TABLET BEFORE BEDTIME 180 Tablet 1 05/14/2024 Active Metoprolol Succinate ER 50 MG Oral Tablet Extended Release 24 Hour (toPROL XL) TAKE 1 TABLET IN THE MORNING AND TAKE 1 TABLET BEFORE BEDTIME 180 Tablet 1 05/14/2024 Active Furosemide 20 MG Oral Tablet (Lasix) TAKE 1 TABLET EVERY MORNING 90 Tablet 1 05/14/2024 Active Apixaban 2.5 MG Oral Tablet (Eliquis) Take 1 Tablet by mouth in the morning and 1 Tablet before bedtime. 180 Tablet 1 12/13/2023 05/14/20 24 Discontinued Metoprolol Succinate ER 50 MG Oral Tablet Extended Release 24 Hour (toPROL XL) Take 1 Tablet by mouth in the morning and 1 Tablet before bedtime. 180 Tablet 1 12/13/2023 05/14/20 24 Discontinued Furosemide 20 MG Oral Tablet (Lasix) Take 1 Tablet by mouth in the morning. 90 Tablet 1 12/13/2023 05/14/20 24 Discontinued documented as of this encounter (statuses as of 05/14/2024) Active Problems Problem Noted Date Diagnosed Date [...] as of this encounter (statuses as of 05/14/2024) Resolved Problems Problem Noted Date Diagnosed Date Resolved Date Chronic obstructive pulmonary disease 05/11/2023 06/08/2023 Overview: Per COPD GOLD Classification documented as of this encounter (statuses as of 05/14/2024) Immunizations No known immunizationsdocumented as of this [...] Miscellaneous Notes * Telephone Encounter - Justin Bryant [facility] - 05/14/2024 3:46 PM EDTSigned Prescriptions: Disp Refills Eliquis 2.5 MG Oral Tablet (Apixaban) 180 Ta*1 Sig: TAKE 1 TABLET IN THE MORNING AND TAKE 1 TABLET BEFORE BEDTIMEAuthorizing Provider: CRIS SIMONS User: JUSTIN DRAKE Metoprolol Succinate ER 50 MG Oral Tablet *180 Ta*1 Sig: TAKE 1 TABLET IN THEMORNING AND TAKE 1 TABLET BEFORE BEDTIMEAuthorizing Provider: CRIS SIMONS User: JUSTIN DRAKE Furosemide 20 MG Oral Tablet (Lasix) 90 Tab*1 Sig: TAKE 1 TABLET EVERY MORNINGAuthorizing Provider: CRIS SIMONS User: JUSTIN DRAKE documented in this encounter Plan of Treatment Upcoming Encounters Date Type Department Care Team (Late st Contact Info) Description 05/29/2024 1:00 PM EST Office Visit Family Practice [facility] [address] [address] Constantino Syed MD [address] [place] [address] 06/10/2024 9:00 AM EST [facility] [place] [address] [place] [phone] [facility] [address] [place] [address] 06/10/2024 4:00 PM EST Pharmacy Pharmacy Hematology Oncology [facility] [place] [address] [place] [address] [facility] Hem[facility]Onc [address] [place] [address] 06/19/2024 9:15 AM EST Office Visit MOHS Surgery [facility] [address] [place] [address] Nichole Werner MD [address] [place] [address] 07/03/2024 9:00 AM EST Laboratory Laboratory [facility] [address] [place] [phone] [facility] 200 [facility] [place] [address] 07/10/2024 1:30 PM EST Office Visit Hematology/Oncology [facility] [address] [place], [place] [phone] Ama Maldonado, LOLITA [address] [place] [place], [place] [phone] 07/31/2024 10:20 AM EST Office Visit Pulmonary Medicine, [facility] 132 [facility] [place] [address] Enrique Fernandez MD [address] [facility] [place] [address] Health Maintenance Due Date Last Done Comments Pneumococcal Vaccine: 65+ Years (1 of 2 - PCV) 09/29/1941 Depression Screening 1947 DTap/Tdap Vaccines (1 - Tdap) 09/29/1954 Zoster Vaccines (1 of 2) 09/29/1985 CKD PHOS USE SMARTSET 33237 11/11/2023 11/10/2022 COVID-19 Vaccine (1 - 2023- season) 2024 Influenza Vaccine (FLU shot) (#1) 2024 Albumin/Creatinine Ratio 05/11/2024 05/11/2023, 07/24 Adult Wellness Visit 01/23/2025 01/24/2024 O2 ASSESSMENT COMPLETED IN PAST YEAR FOR COPD 04/10/2025 04/10/2024 CKD HGB USE SMARTSET 67766 05/10/202505/10, 05/10/2024, 04/10/2024, Additional history exists DXA [...] filedocumented as of this encounter Care Teams Web Consultant Relationship Specialty Start Date End Date Cris Simons DO [address] [place] [address] PCP - General Family Medicine 12/07/22 documented as of this encounter
--- OUTSIDE RECORDS SUMMARY | 2024-09-05 22:33 | External Medical Summary | Summary of Care ---
Author Name Unknown Organization [facility] Address [address] [place] [address] Phone [phone] Care Team Providers Care Vacuum Spindle Sander Name Role Phone Ronnell Toshiatheodore Paul DO Primary Care Provider [phone] Reason for Referral * Evaluate & Treat - Unlimited Visits (Within 10 days (routine)) - Authorized Specialty Diagnoses / Procedures Referred By Felix t Referred To Contact Orthopaedic Surgery / Orthopedics Diagnoses Trigger thumb of right hand Constantino Syed MD [address] [place] [address] Referral ID Status Reason Start Date Expiration Date Visits Requested Visits Authorized [id number] Authorized Specialty Services Required 05/29/2024 999 999 Question Answer Referral Priority Within 10 days (routine) Where should this appointment be scheduled? [facility] What body part is the patient being seen for? Hand What condition is the patient being seen for? Arthritis including related infection Comments Trigger thumb - injection Reason for Visit * Reason Comments Follow Up Pt here for a 3m f/u . No concerns voiced for today. Encounter Details Date Type Department Care Team (Late st Contact Info) Description 05/29/2024 1:00 PM EST Office Visit Family [facility] [address] [place] [address] Constantino Syed MD [address] [place] [address] Stage 3a chronic kidney disease (HCC)*; Atrial fibrillation, unspecified type (HCC); Chronic ITP (idiopathic thrombocytopenia) (HCC); HTN, goal below 140/90; Diastolic dysfunction; Risk and functional assessment; Trigger thumb of right hand Allergies Active Allergy Reactions Criticality Noted Date Comments Lisinopril Other (Please comment) 05/06/2022 Burning in throat documented as of this encounter (statuses as of 05/29/2024) Medications Medication Sig Dispensed Refills Start Date [...] MCG/ACT Inhalation Aerosol SolutionIndications :COPD, very severe ([facility]) Inhale 2 Puffs by mouth [...] EVERY MORNING 90 Tablet 1 05/14/2024 Active documented as of this encounter (statuses as of 05/29/2024) Active Problems Problem Noted Date Diagnosed Date [...] as of this encounter (statuses as of 05/29/2024) Resolved Problems Problem Noted Date Diagnosed Date Resolved Date Chronic obstructive pulmonary disease 05/11/2023 06/08/2023 Overview: Per COPD GOLD Classification documented as of this encounter (statuses as of 05/29/2024) Immunizations No known immunizationsdocumented as of this [...] Assigned at Female 05/29/2024 12:53 PM EST Gender Identity Female 05/29/2024 12:53 PM EST Sexual Orientation Straight 05/29/2024 12 :53 PM EST Job Start Date Occupation Industry Not on file Not on file Not on file documented as of this encounter Last Filed Vital Signs Vital Sign Reading Time Taken Comments Blood Pressure 144/62 05/29/2024 1:16 PM EST Pulse 54 05/29/2024 12:56 PM EST Temperature 35.7 C (96.3 F) 05/29/2024 12:[address] Respiratory Rate 16 05/29/2024 12:56 PM EST Oxygen Saturation 96% 05/29/2024 12:56 PM EST Inhaled Oxygen Concentration - - Weight 51.9 kg (114 lb 6.4 oz) 05/29/2024 12:56 PM EST Height 154.9 cm (5' 1") 05/29/2024 12:56 PM EST Body Mass Index 21.62 05/29/2024 12:56 PM EST documented in this encounter Patient Instructions * Patient Instructions* Penelope Londono LPN - 05/29/2024 12:56 PM EST Patient Instructions - Fall Prevention (This education is for all patients over 65 regardless of symptoms) Remember to take your current medications as prescribed. In order to prevent falls, you are encouraged to: Exercise Utilize assistive/adaptive devices Avoid multifocal lenses when walking Avoid hazards in home Maintain a regular toileting schedule Any questions please contact our office. Preventing Falls in the Home (This education is for all patients over 65 regardless of symptoms) As you get older, falls are more likely. Thats because your reaction time slows. Your muscles and joints may also get stiffer, making them less flexible. Illness, medications, and vision changes can also affect your balance. A fall could leave you unable to live on your own. To make your home safer, follow these tips: Floors Put nonskid pads under area rugs Remove throw rugs Replace worn floor coverings Tack carpets firmly to each step on carpeted stairs. Put nonskid strips on the edges of uncarpeted stairs Keep floors and stairs free of clutter and cords Arrange furniture so there are clear pathways Clean up any spills right away Bathrooms Install grab bars in the tub or shower Apply nonskid strips or put a nonskid rubber mat in the tub or shower Sit on a bath chair to bathe Use bathmats with nonskid backing Lighting Keep a flashlight in each room Put a nightlight along the pathway between the bedroom and the bathroom Moe Patient Education Copyright 2008 - 2010 Moe except where otherwise noted Preventing Falls: Exercises to Improve Balance, Flexibility, Strength, and Staying Power (This education is for all patients over 65 regardless of symptoms) Certain types of exercises may help make you less likely to fall. Try the ones below. Or do other exercises that your healthcare provider suggests. Depending on your health, you may need to start slowly. Dont let that stop you. Even small amounts of exercise can help you. Be sure to talk to yourhealthcare provider before starting any exercise program. Improve Balance Many types of exercise can help improve balance. Jack chi and yoga are good examples. Heres another one to try. You can do it anytime and almost anywhere. Stand next to a counter or solid support. Push yourself up onto your tiptoes. Hold for 5 seconds. If you start to lose your balance, hold on to the counter. Rest and repeat 5 times. Work up to holding for 20 to 30 seconds, if you can. Increase Flexibility Being more flexible makes it easier for you to move around safely. Try exercises like the seated hamstring stretch. Sit in a chair and put one foot on a stool. Straighten your leg and reach with both hands down either side of your leg. Reach as far down your leg as you can. Hold for about 20 seconds. Go back to the starting position. Then repeat 5 times. Switch legs. Build Strength Resistance exercises help build strength. You can do them without equipment. Or you can use weights, elastic bands, or special machines. One such exercise is called the biceps curl. You can hold a 1 pound weight or even a can of soup. Do this exercise at least 3 times a week. Strive for everyday. Sit up straight in a chair. Keep your elbow close to your body and your wrist straight. Bend your arm, moving your hand up to your shoulder. Then slowly lower your arm. Repeat 5 times. Switch to the other arm. Build Your Staying Power Aerobic exercises make your heart and lungs stronger so you can keep moving longer. Walking and swimming are two of the best types of exercises you can do. Using a stationary bike is great, too. Find an aerobic exercise that you enjoy. Start slowly and build up. Even 5 minutes is helpful. Aimfor a goal of 30 minutes, at least 3 times a week. You dont have to do 30 minutes in one session. Break it up and walk a little throughout the day. More Helpful Tips Start easy. Slowly work up to doing more. Talk with your healthcare provider about the best exercises for you. Call senior centers or health clubs about exercise programs. If needed, have a family member watch you walk every so often to check your stability. Exercise with a friend. Choose an activity you both enjoy. Try exercises that you can do anytime, anywhere. Here are two examples. Have someone with you when you first try these: Practice walking by placing one foot right in front of the other. Stand up and sit down 10 times. Repeat this throughout the day. Moe Patient Education Copyright 2008 - 2010 Moe except where otherwise noted. Preventing Falls: Moving Safely Using a Cane or Walker (This education is for all patients over 65 regardless of symptoms) Keep the cane away from your feet so you dont trip. A walking aid, such as a cane or walker, can help you stay more independent and avoid falls. Remember to keep your walking aid within easy reach when youre in a chair or in bed. And learn how to use it safely so you dont injure yourself. Using a Cane If you have a stronger side, hold the cane on that side. Get your balance. Move the cane and your weaker leg forward. Support your weight on both the cane and your weaker side. Step with your stronger leg. Start again from step 1. If youre using a folding walker, be sure you know how to lock it open. Check that its locked open before each use. Using a Walker Roll the walker (or lift it, if youre using one without wheels) forward about 12 inches. Step forward with your weaker leg first. Use the walker to help keep your balance. Bring your other foot forward to the center of the walker. Start again from step 1. Helpful Tips Check with your healthcare provider about the right walking aid to use. Ask about a walker with a seat attached. Check the tips of your cane or walker to make sure they have nonskid covers. Move slowly from room to room. Dont fritz. Sit down to get dressed. Use a cassidy pack or backpack to keep your hands free. Get help for jobs that mean climbing, even on a stepstool. Moe Patient Education Copyright 2008 - 2010 Moe except where otherwise noted. Urinary Incontinence Plan of Care Documentation: (This education is for all patients over 65 regardless of symptoms) Current medications reconciled. Patient encouraged to: Practice kegal exercises Provide education materials Use the restroom every 2 hours throughout the day Limit caffeine, alcohol, spicy foods and acidic foods Keep a bladder diary Limit fluid intake 3-4 hours before bed Lose weight Prevent constipation Take fluid pills at a time when you can get to the bathroom quickly Control sugar better if diabetic Limit fluid intake to 60 oz. per day Wear support stockings (TEDs)if you have edema Penelope Londono LPN 05/29/2024 Kegel Exercises Kegel exercises dont require special clothing or equipment. Theyre easy to learn and simple to do. And if you do them right, no one can tell youre doing them, so they can be done almost anywhere. Your doctor, nurse, or physical therapist can answer any questions you have and help you get started. A Weak Pelvic Floor The pelvic floor muscles may weaken due to aging, and vaginal childbirth, injury, surgery, chronic cough, or lack of exercise. If the pelvic floor is weak, your bladder and other pelvic organs may sag out of place. The urethra may also open too easily and allow urine to leak out. Kegel exercises can help you strengthen your pelvic floor muscles so they can better support the pelvic organs and control urine flow. How Kegel Exercises Are Done Try each of the Kegel exercises described below. When youre doing them, try not to move your leg, buttock, or stomach muscles. While youre urinating, try to stop the flow of urine. Start and stop it as often as you can. Contract as if you were stopping your urine stream, but do it when youre not urinating. Tighten your rectum as if trying not to pass gas. Contract your anus, but dont move your buttocks. Helpful Hints Do your Kegels as often as you can. The more you do them, the faster youll feel the results. Pick an activity you do often as a reminder. For instance, do your Kegels every time you sit down. Tighten your pelvic floor before you sneeze, get up from a chair, cough, laugh, or lift. This protects your pelvic floor from injury and can help prevent urine leakage. Try to hold each Kegel for a slow count to five. You probably wont be able to hold them for thatlong at first, but keep practicing. It will get easier as your pelvic floor gets stronger. Eventually, special weights that you place in your vagina may be recommended to help make your Kegels even more effective. Moe Patient Education Copyright 2008 - 2010 Moe except where otherwise noted. Here are some helpful tips for your urinary incontinence: (This education is for all patients over 65 regardless of symptoms) Practice Kegel exercises Use the restroom every 2 hours throughout the day Limit caffeine, alcohol, spicy foods, and acidic foods Keep a bladder diary Limit fluid intake 3-4 hours before bed Lose weight Prevent constipation Take fluid pills at a time when can get to the bathroom quickly Control sugar better if diabetic Limit fluid intake to 60 oz. per day Any questions, please feel free to contact our office. documented in this encounter Progress Notes * Constantino Syed MD - 05/29/2024 1:17 PM EST Images from the original note were not included. History of Present Illness Edilma Kennedy is a 88 year old female that presents for Follow Up (Pt here for a 3m f/u. No concerns voiced for today. ) Patient overall doing well. Not sleeping well but that has been the case for many years. Eating well. Has no major concerns besides a rather new issue with her right thumb - she struck it against something a few weeks back and it has been hurting "like the devil ever since." Physical Exam BP 144/62 | Pulse 54 | Temp 35.7 C (96.3 F) (Tympanic) | Resp 16 | Ht 1.549 m (5' 1") | Wt 51.9kg (114 lb 6.4 oz) | SpO2 96% | BMI 21.62 kg/m | BSA 1.49 m AAOx3 Normal affect NCAT/ PERRL - glasses Neck supple Mild kyphoscoliosis Throat clear Irregularly irregular rhythm with normal rate Lungs CTABL - no wheezing Ext warm and well perfused No gross neuro deficits Normal gait Trigger thumb right thumb with inducible clicking Hunched posture, slow and antalgic gait I have reviewed most recent labs Assessment and Plan Stage 3a chronic kidney disease (HCC) - reviewed labs, stable. Update albumin/creat next visit and check phos - ALBUMIN / CREATININE RATIO, URINE; Future - PHOSPHORUS; Future Atrial fibrillation, unspecified type (HCC) - rate controlled, remains on AC. Considering the ITP if she remains anemic it may be worth considering watchman/SHORTY closure procedure so she can get off the AC Chronic ITP (idiopathic thrombocytopenia) (HCC) - reviewed 05/10 labs with improvement of Hgb from March - repeat later this month HTN, goal below 140/90 - recheck BP better - cont same meds. No symptoms. Diastolic dysfunction - no exac, no swelling, no weight gain. Trigger thumb of right hand - new - referred to ortho for injection - ORTHOPAEDICS REFERRAL OP Wrap-Up 6 months prn sooner Cont the O2 at night Stay the course with meds Consider watchman in future to get off AC Referral to hand/ortho due to trigger thumb Time: I spent a total of 40-54 minutes (exact time 41 mins) on the date of service in preparation, delivery, and documentation of the care provided to Edilma Kennedy excluding any time spent in the performance of separately billed services. * Penelope Londono LPN - 05/29/2024 12:56 PM EST Fall Risk Plan of Care Documentation: - Current medications reconciled Patient encouraged to: - Exercise - Provide education materials for Core strengthening - Utilize assistive/adaptive devices - Provide education materials - Avoid multifocal lenses when walking - Avoid hazards in home - Provide education materials - Maintain a regular toileting schedule Penelope Londono LPN 05/29/2024 Urinary Incontinence Plan of Care Documentation: (This education is for all patients over 65 regardless of symptoms) Current medications reconciled. Patient encouraged to: Practice kegal exercises Provide education materials Use the restroom every 2 hours throughout the day Limit caffeine, alcohol, spicy foods and acidic foods Keep a bladder diary Limit fluid intake 3-4 hours before bed Lose weight Prevent constipation Take fluid pills at a time when you can get to the bathroom quickly Control sugar better if diabetic Limit fluid intake to 60 oz. per day Wear support stockings (TEDs)if you have edema Penelope Londono LPN 05/29/2024 documented in this encounter Plan of Treatment Upcoming Encounters Date Type Department Care Team (Late st Contact Info) Description 06/10/2024 9:00 AM EST Laboratory Laboratory [facility] [place] [address] [facility] [place] [phone] [facility] Raquel Christopher [facility] [place] [address] 06/10/2024 9:00 AM EST Pharmacy Pharmacy Hematology Oncology [facility] [address] [place] [address] [facility], [facility] Hem/Onc [address] [place] [address] 06/19/2024 9:15 AM EST Office Visit MOHS Surgery [facility] [place] [address] [place] [address] Nichole Werner MD [address] [facility] [place] [address] 07/03/2024 9:00 AM EST Laboratory Laboratory [facility] [address] [place] [phone] [place] [facility] [address] [facility] [place] [address] 07/10/2024 1:30 PM EST Office Visit Hematology/Oncology [facility] [address] [place] [phone] Ama Maldonado CRNP [address] [facility] [place] [address] 07/31/2024 10:20 AM EST Office Visit Pulmonary Medicine, [facility] [address] [facility] [place] [address] [facility] Fern[facility] [address] [facility] [place] [address] Scheduled Orders Name Type Priority Associated Diagnoses Orde r Schedule ALBUMIN / CREATININE RATIO, URINE Lab Routine Stage 3a chronic kidney disease (HCC) Expected: 05/29/2024, Expires: 05/29/2025 PHOSPHORUS Lab Routine Stage 3a chronic kidney disease (HCC) Expected: 05/29/2024, Expires: 05/29/2025 Scheduled Referrals Name Type Priority Associated Diagnoses Order Schedule ORTHOPAEDICS REFERRAL OP Referral Within 10 days (routine) Trigger thumb of right hand Ordered: 05/29/2024 Health Maintenance Due Date Last Done Comments CKD PHOS USE SMARTSET 16853 11/11/2023 11/10/2022 Albumin/Creatinine Ratio 05/11/2024 05/11/2023, 07/24 DTap/Tdap Vaccines (1 - Tdap) 05/30/2024 Postponed from 09/29/1954 (Patient Declined After Education) Adult Wellness Visit 01/23/2025 01/24/2024 CKD HGB USE SMARTSET 86331 05/10/202505/10, 05/10/2024, 04/10/2024, Additional history exists Depression Screening 05/29/2025 05/29/2024 [...] as of this encounter Visit Diagnoses Diagnosis Stage 3a chronic kidney disease (HCC)- Primary Atrial fibrillation, unspecified type (HCC) Chronic ITP (idiopathic thrombocytopenia) (HCC) Immune thrombocytopenic purpura HTN, goal below 140/90 Unspecified essential hypertension Diastolic dysfunction Heart disease, unspecified Risk and functional assessment Screening for unspecified condition Trigger thumb of right hand Trigger finger (acquired) documented in this encounter Care Teams Vacuum Spindle Sander Relationship Specialty Start Date End Date Toshia Reynaga DO [address] [place] [address] PCP - General Family Medicine 12/07/22 documented as of this encounter
--- OUTSIDE RECORDS SUMMARY | 2024-09-05 22:33 | External Medical Summary ---
Author Name Unknown Address Unknown Organization [facility] [place] [address] Laboratory Report Ordering Provider Test Date Status RAMU VASQUES 06/10/2024 09:34:17 Final Observation Date Value Abnormality Reference (Units ) Status WBC, Total 06/10/2024 09:34:17 7.58 4.00-10.8 0 (K/uL) Final RBC 06/10/2024 09:34:17 3.31 3.85-5.15 (M/uL) Final Hemoglobin 06/10/2024 09:34:17 10.1 Below low normal 12 .0-15.3 (g/dL) Final HCT 06/10/2024 09:34:17 31.8 Below low normal 36. 0-45.2 (%) Final MCV 06/10/2024 09:34:17 96.1 81.5-97.5 (fL) Final MCH 06/10/2024 09:34:17 30.5 27.0-34.0 (pg) Final MCHC 06/10/2024 09:34:17 31.8 32.0-36.0 (g/dL) Final RDW 06/10/2024 09:34:17 13.2 11.5-15.5 (%) Final Platelets 06/10/2024 09:34:17 324 140-400 (K /uL) Final MPV 06/10/2024 09:34:17 10.1 6.6-11.1 ( fL) Final Performing Location [facility] [place] [address]
--- OUTSIDE RECORDS SUMMARY | 2024-09-05 22:33 | External Medical Summary | Summary of Care ---
Author Name Unknown Organization [facility] Address [address] [place] [address] Phone [phone] Care Team Providers Care Vacc[employer] Specialist Name Role Phone Toshia Reynaga DO Primary Care Provider [phone] Reason for Visit * Reason Comments Follow Up Encounter Details Date Type Department Care Team (Late st Contact Info) Description 04/10/2024 1:30 PM EDT Office Visit Hematology/Oncology [facility] [address] [place] [address] Ama Maldonado, LOLITA [address] [place] [address] Chronic ITP (idiopathic thrombocytopenia) (HCC)*; [...] Smoking Tobacco: Former Cigarettes 0.3 5 1 1978 Passive Smoke Exposure: Never Smokeless Tobacco: [...] Sign Reading Time Taken Comments Blood Pressure 157/52 04/10/2024 1:23 PM EDT Pulse 58 04/10/2024 1:23 PM EDT Temperature 36.2 C (97.2 F) 04/10/2024 1:23 PM ED T Respiratory Rate - - Oxygen Saturation 93% 04/10/2024 1:23 PM EDT Inhaled Oxygen Concentration - - Weight 49.8 kg (109 lb 12.8 oz) 04/10/2024 1:23 PM EDT Height - - Body Mass Index 20.75 01/29/2024 2:31 PM EDT documented in this encounter Progress Notes * Ama Maldonado CRNP - 04/10/2024 1:37 PM EDT Hematology/Oncology Outpatient Clinic note [facility] [address] [place], [place] [address] Name: Edilma Kennedy Date: 04/10/2024 CHIEF COMPLAINT: Edilma Kennedy is a 88 [...] including HTN and HLD. Previous patient of [facility] Oncology [place], [place]. Followed for chronic ITP. Reviewed available [...] all other days. Patient moved back to [place] January 23. Patient currently is taking 20 mg daily as she dropped the dose down on her own three days ago as she was afraid she would run out of medication prior to this appointment. Patien t very concerned about her weight loss. This was also being worked up in [place]. Total has lost almost 100 pounds unintentionally [...] outlined above. Currently here for f/u visit today. She is by herself without oxygen today. She is taking Doptelet M-F. She states that she tolerates it fine. She is also taking iron twice a day. She is on Eliquis. No excessive bruising or bleeding. She states that she is feeling well. At times she will get a sharp twinge in abdominal area. She admits to having some constipation-using Miralax. No chest pain or shortness of breath. Rarely she will feel a quick twinge in upper chest. No syncope or near syncope. No urinary issues. Past Surgical History: Procedure Laterality Date FACE/SCALP SUBQ TUMOR REMOVAL, 2 CM OR MORE N/A 07/28/2023 EXCISION FACE/SCALP SUBQ TUMOR, 2 CM OR MORE performed by Paula Callahan MD at [facility] Social History Socioeconomic History Marital status: Spouse name: Not on file Number of children: Not on file Years of education: Not on file Highest education level: Not on file Occupational History Not on file Tobacco Use Smoking status: Former Current packs/day: 0.00 Average packs/day: 0.3 packs/day for 5.0 years (1.3 ttl pk-yrs) Types: Cigarettes Start date: 1973 Quit date: 1978 Years since quittin.7 Passive exposure: Never Smokeless tobacco: Never Vaping Use Vaping status: Never Used Substance and Sexual Activity Alcohol use: Never Drug use: Never Sexual activity: Not on file Other Topics Concern Not on file Social History Narrative Not on file Social Determinants of Health Financial Resource Strain: Not on file Food Insecurity: Not on file Transportation Needs: Not on file Social Connections: Unknown (01/09/2024) Social Connections How often do you feel lonely or isolated from those around you? (Adult - for ages 18 years and over): Not on file Housing Stability: Not on file Review of patient's allergies [...] Ellipta 100-62.5-25 MCG/ACT Aerosol Powder Breath Activated (Fzhchrypwsy-Ymbhrmtfbdpt-Pgeflaexim) Inhale 1 Puff by mouth in the morning. 180 Blister Dosing Unit 1 Avatrombopag Maleate 20 MG Oral Tablet Take 1 tablet by mouth in the morning. (Patient taking differently: Take 20 mg by mouth daily except for Monday and Monday.) 30 Tablet 5 Apixaban 2.5 MG Oral Tablet (Eliquis) Take 1 Tablet by mouth in the morning and 1 Tablet before bedtime. 180 Tablet 1 Metoprolol Succinate ER 50 MG Oral Tablet Extended Release 24 Hour (toPROL XL) Take 1 Tablet by mouth in the morning and 1 Tablet before bedtime. 180 Tablet 1 Furosemide 20 MG Oral Tablet (Lasix) Take 1 Tablet by mouth in the morning. 90 Tablet 1 Ferrous Sulfate 325 (65 Fe) MG Oral Tablet Delayed Release Take 1 Tablet by mouth 2 times a day with morning and evening meals. 180 Tablet 1 No current facility-administered medications for this visit. REVIEW OF SYSTEMS: See HPI - otherwise negative OBJECTIVE: Filed Vitals: 04/10/24 1323 BP: 157/52 Pulse: 58 Temp: 36.2 C (97.2 F) TempSrc: Tympanic SpO2: 93% Weight: 49.8 kg (109 lb 12.8 oz) Repeat 137/78 Oxygen RA 94% PHYSICAL EXAM: ECOG: Performance Status 0 = 100% Normal Activity General Appearance: pleasant elderly appearing patient in no acute distress HEENT: [...] orders placed or performed in visit on 04/10/24 CBC Result Value Ref Range WBC 8.22 4.00 - 10.80 K/uL RBC 2.98 3.85 - 5.15 M/uL HGB 9.2 (L) 12.0 - 15.3 g/dL HCT 28.8 (L) 36.0 - 45.2 % MCV 96.6 81.5 - 97.5 fL MCH 30.9 27.0 - 34.0 pg MCHC 31.9 32.0 - 36.0 g/dL RDW 14.2 11.5 - 15.5 % PLT 284 140 - 400 K/uL MPV 10.4 6.6 - 11.1 fL DIFFERENTIAL, AUTOMATED Result Value Ref Range WBC 8.22 4.00 - 10.80 K/uL Neutrophils % 61.8 40.0 - 75.0 % Lymphocytes % 27.0 18.0 - 42.0 % Monocytes % 8.0 1.0 - 11.0 % Eosinophils % 2.7 0.0 - 6.0 % Basophils % 0.5 0.0 - 2.0 % Absolute Neutrophils 5.08 1.80 - 7.70 K/uL Absolute Lymphocytes 2.22 1.00 - 4.80 K/ul Absolute Monocytes 0.66 0.00 - 1.10 K/uL Absolute Eosinophils 0.22 0.00 - 0.70 K/uL Absolute Basophils 0.04 0.00 - 0.20 K/uL Hgb 9.2-slightly reduced but long hx of anemia ASSESSMENT: Chronic ITP, normocytic anemia - labs very stable on current dose. PLAN: She will continue - Avatrombopag (Doptelet) 20 mg once a day Monday-Monday Will check CBCD every monthly. Continue Patrick Rtc 3 months MD with cbcd, cmp Appreciate MTM assistance Call as needed LOLITA Yoon documented in this encounter Nursing Notes * My Hendricks, MED ASSIST - 04/10/2024 1:26 PM EDT Patient identifed by name and birthdate Do [...] it for you? ALREADY ACTIVE Filed Vitals: 04/10/24 1323 BP: 157/52 Pulse: 58 Temp: 36.2 C (97.2 F) TempSrc: Tympanic SpO2: 93% Weight: 49.8 kg (109 lb 12.8 oz) Patient was instructed to [...] Care Team (Late st Contact Info) Description 04/26/2024 9:20 AM EDT Office Visit [facility] [place] [address] Toshia Reynaga DO [address] [place] [address] 05/10/2024 9:00 AM EDT Pharmacy Pharmacy Hematology Oncology [facility] [address] [place] [address] [facility], [facility] Hem/Onc [address] [place] [address] 05/10/2024 9:10 AM EDT Laboratory Laboratory [facility] [place] [address] [place] [phone] [place] [facility] [address] [facility] [place] [address] 06/10/2024 9:00 AM EST Laboratory Laboratory [facility] [place] [address] [place] [phone] [place] [facility] [address] [place] [address] 06/19/2024 9:15 AM EST Office Visit [facility] Surgery [facility] [place] [address] [place] [address] Nichole Werner MD [address] [place] [address] 07/03/2024 9:00 AM EST Laboratory Laboratory [facility] [address] [place] [phone] [place], Lab [facility] 200 [facility] [place] [address] 07/10/2024 1:30 PM EST Office Visit Hematology/Oncology [facility] [address] [place] [phone] Ama Maldonado CRNP [address] [facility] [place] [address] 07/31/2024 10:20 AM EST Office Visit Pulmonary Medicine, [facility] 132 [facility] [place] [address] Enrique Fernandez MD [address] [facility] [phone] Health Maintenance Due Date Last Done Comments Pneumococcal Vaccine: 65+ Years (1 of 2 - PCV) 09/29/1941 Depression Screening 1947 DTap/Tdap Vaccines (1 - Tdap) 09/29/1954 Zoster Vaccines (1 of 2) 09/29/1985 CKD PHOS USE SMARTSET 50731 11/11/2023 11/10/2022 COVID-19 Vaccine (1 - season) 2024 Influenza Vaccine (FLU shot) (#1) 2024 Albumin/Creatinine Ratio 05/11/2024 05/11/2023, 07/24 Adult Wellness Visit 01/23/2025 01/24/2024 CKD HGB USE SMARTSET 30066 04/10/202504/10, 04/10/2024, 03/08/2024, Additional history exists O2 [...] type documented in this encounter Care Teams Vaccines Solutions Specialist Relationship Specialty Start Date End Date Toshia Reynaga DO [address] [place] [address] PCP - General Family Medicine 12/07/22 documented as of this encounter
--- OUTSIDE RECORDS SUMMARY | 2024-09-05 22:33 | External Medical Summary | Summary of Care ---
Author Name Unknown Organization [facility] Address [address] [place] [address] Phone [phone] Care Team Providers Care Account Director Name Role Phone Toshia Reynaga DO Primary Care Provider [phone] Reason for Visit * Reason Onset Date Comments Medication Refill 04/17/2024 Trelegy Encounter Details Date Type Department Care Team (Late st Contact Info) Description 04/17/2024 Refill Pulmonary Medicine Nehemiah Clemens [address] [place] [phone] Enrique Nam MD [address] [place] [address] Allergies Active Allergy Reactions Criticality Noted Date Comments Lisinopril Other (Please comment) 05/06/2022 Burning in throat documented as of this encounter (statuses as of 04/17/2024) Medications Medication Sig Dispensed Refills Start Date [...] 180 Blister Dosing Unit 1 04/17/2024 Active Trelegy Ellipta 100-62.5-25 MCG/ACT Aerosol Powder Breath Activated (Fluticasone-Umec lidinium-Vilanter ol) Inhale 1 Puff by mouth in the morning. 180 Blister Dosing Unit 1 10/12/2023 Discontinue d(Refill) documented as of this encounter (statuses as of 04/17/2024) Active Problems Problem Noted Date Diagnosed Date [...] as of this encounter (statuses as of 04/17/2024) Resolved Problems Problem Noted Date Diagnosed Date Resolved Date Chronic obstructive pulmonary disease 05/11/2023 06/08/2023 Overview: Per COPD GOLD Classification documented as of this encounter (statuses as of 04/17/2024) Immunizations No known immunizationsdocumented as of this [...] Telephone Encounter - Enrique Nam MD - 04/17/2024 12:43 PM EDT Signed Prescriptions: Disp Refills Trelegy Ellipta 100-62.5-25 MCG/ACT Aeroso*180 Bl*1 Sig: Inhale 1 Puff by mouth in the morning. Authorizing Provider: ENRIQUE NAM * Telephone Encounter - Ani Orozco LPN - 04/17/2024 11:27 AM EDTPending Prescriptions: Disp Refills Trelegy Ellipta 100-62.5-25 MCG/ACT Aeroso*180 Bl*1 Sig: Inhale 1 Puff by mouth in the morning. * Telephone Encounter - Miroslava Nance CPhT - 04/17/2024 11:07 AM EDT Did you pend patient's preferred pharmacy and medication before forwarding?yes Pharmacy: [id number] [address] [place] [address] Pending Prescriptions: Disp Refills Trelegy Ellipta 100-62.5-25 MCG/ACT Aeros*180 Bl*1 Sig: Inhale 1 Puff by mouth in the morning. Last Visit: Visit date not found (in office), Visit date not found (telemedicine) Next Visit: Visit date not found If no future appointments scheduled, and last appointment is greater than a year ago, please schedule patient for a follow-up appointment Last date the medication was ordered: 10/12/23 Is this request for a controlled substance?No Urine Drug Screen:No results found for this or any previous visit. Patient Phone Numbers Labs: Lab Results Component Value Date/Time CREAT 1.2 (H) 03/08/2024 03:23 PM CREAT 1.18 (H) 11/22/2023 12:00 AM POTASSIUM 4.6 03/08/2024 03:23 PM POTASSIUM 4.5 11/22/2023 12:00 AM TSH 4.19 11/27/2023 02:30 PM LDL 108 11/27/2023 02:30 PM ALT <5 (L) 02/13/2024 01:17 PM documented in this encounter Plan of Treatment Upcoming Encounters Date Type Department Care Team (Late st Contact Info) Description 05/10/2024 9:00 AM EDT Pharmacy Pharmacy Hematology [facility] [address] [place] [address] [facility], [facility] Hem/Onc [address] [place] [address] 05/10/2024 9:10 AM EDT Laboratory Laboratory [facility] [address] [place] [phone] [place] [address] [place] [address] 05/27/2024 1:20 PM EST Office Visit Family [facility] 132 [facility] [place] [address] Toshia Reynaga DO [address] [place] [address] 06/10/2024 9:00 AM EST Laboratory Laboratory [facility] [place] [address] [place], [place] [phone] [facility] [facility] [address] [place] [address] 06/19/2024 9:15 AM EST Office Visit MOHS Surgery [facility] [place] [address] [place], [place] [address] Nichole Werner MD [address] [place] [address] 07/03/2024 9:00 AM EST Laboratory Laboratory [facility] [place] [address] [place] [phone] [place] [facility] [address] [facility] [place], [place] [address] 07/10/2024 1:30 PM EST Office Visit Hematology/Oncology [facility] [address] [place], [place] [phone] Ama Maldonado, LOLITA [address] [place], [place] [phone] 07/31/2024 10:20 AM EST Office Visit Pulmonary Medicine, [facility] [address] [facility] [address] Enrique Nam MD [address] [place], [place] [phone] Health Maintenance Due Date Last Done Comments Pneumococcal Vaccine: 65+ Years (1 of 2 - PCV) 09/29/1941 Depression Screening 1947 DTap/Tdap Vaccines (1 - Tdap) 09/29/1954 Zoster Vaccines (1 of 2) 09/29/1985 CKD PHOS USE SMARTSET 53241 11/11/2023 11/10/2022 COVID-19 Vaccine (1 - season) 2024 Influenza Vaccine (FLU shot) (#1) 2024 Albumin/Creatinine Ratio 05/11/2024 05/11/2023, 07/24 Adult Wellness Visit 01/23/2025 01/24/2024 CKD HGB USE SMARTSET 56661 04/10/202504/10, 04/10/2024, 03/08/2024, Additional history exists O2 [...] filedocumented as of this encounter Care Teams Account Director Relationship Specialty Start Date End Date Toshia Reynaga DO [address] [place] [address] PCP - General Family Medicine 12/07/22 documented as of this encounter
--- OUTSIDE RECORDS SUMMARY | 2024-09-05 22:33 | External Medical Summary ---
Author Name Unknown Address Unknown Organization [id number][facility] - [address] [place] [address] Laboratory Report Ordering Provider Test Date Status RAMU VASQUES 06/27/2024 14:30:11 Final Observation Date Value Abnormality Reference (Units ) Status SYNC LEUKOCYTES IN BLOOD BY AUTOMATED COUNT 06/27/2024 14:30:11 8.71 4.00-10.80 (K/uL) Final Segs 06/27/2024 14:30:11 70.5 40.0-75.0 (%) Final Lymphs % 06/27/2024 14:30:11 20.9 18.0-42.0 (%) Final Monos 06/27/2024 14:30:11 6.7 1.0-11.0 (%) Final Eosinophils 06/27/2024 14:30:11 1.6 0.0-6.0 (%) Final Basos 06/27/2024 14:30:11 0.3 0.0-2.0 (%) Final Absolute Segs 06/27/2024 14:30:11 6.14 1.80-7.70 (K/uL) Final Lymphs, absolute 06/27/2024 14:30:11 1.82 1.00-4.80 (K/ul) Final Monos, Abs 06/27/2024 14:30:11 0.58 0.00-1.10 (K/uL) Final Eos, Abs 06/27/2024 14:30:11 0.14 0.00-0.70 (K/uL) Final Basos, Abs 06/27/2024 14:30:11 0.03 0.00-0.20 (K/uL) Final Performing Location [facility] - [address] [place] [address]
--- OUTSIDE RECORDS SUMMARY | 2024-09-05 22:33 | External Medical Summary | Summary of Care ---
Author Name Unknown Organization [facility] Address [address] [place] [address] Phone [phone] Care Team Providers Care Waste Water Treatment Plant Operator Name Role Phone Toshia Reynaga DO Primary Care Provider [phone] Reason for Visit * Reason Comments Medication Management Encounter Details Date Type Department Care Team (Late st Contact Info) Description 06/10/2024 9:00 AM [facility] Pharmacy Pharmacy Hematology Oncology [facility] [address] [place], [place] [phone] [facility], [facility] Hem/Onc [address] [place], [place] [phone] Chronic ITP (idiopathic thrombocytopenia) (HCC)* Allergies Active [...] this encounter Progress Notes * Winter Casiano, [facility] - 06/10/2024 10:43 AM EST MEDICATION THERAPY MANAGEMENT AVATROMBOPAG TREATMENT PROGRESS NOTE Edilma Kennedy [phone] Patient Phone Numbers son Christian Son: Christian Communication: Left message Treatment: Medication: Avatrombopag (Doptelet) Indication/Staging/Diagnosis Code: ITP/D69.3 Dose: 20mg M-F ( 01/11/24) Administration: with food Start Date: November 2019 Primary Metaphysician/Oncologist: Dr. Gabriel Choi Additional therapy: Rutiximab x 2 Dose adjustment / medication hold: 09/14/23-09/24/23: avatrombopag held due to thrombocytosis (PLT 919K) 09/25/23: resume avatrombopag at 20mg daily 10/25/23-11/06/23: avatrombopag held due to thrombocytosis (PLT 684K) 01/11/24: avatrombopag 20mg M-F due to ongoing thrombocytosis Interval History: Pt admitted to [facility] 05/23/22 for bleeding and PLT < 10K and transferred to [facility] 05/24/22 and discharged 06/18/[address] [facility] 09/01/23-09/06/23 for CHF/COPD exacerbation - avatrombopag continued during admission despite PLT 718K 09/01/[address] [facility] 10/18/23-10/22/23 for COPD exacerbation Admitted to [facility] 11/09/23-11/12/23 for thrombocytopenia and received methylprednisolone and increased dose of avatrombopag 40mg daily Admitted to [facility] 11/15/23-11/19/23 for symptomatic a fib and discharged on apixaban Administered avatrombopag 40mg daily while admitted Per TE 11/17/23, pt okay to receive apixaban given elevated PLT Per OV 02/14/24, lab monitoring extended to monthly Changes to medication list since last visit? No Assessment and plan: PLT above goal (50-200K) but stable Hgb low but improving CBC otherwise stable As per previous discussion with Dr Choi, continue current avatrombopag dose Repeat labs with OV - cancelled lab appt on 07/03 and advised to walk in prior to appt Assessment of compliance: N/A Dose adjustment needed based on lab or adverse drug reaction? No Follow up: 1 month OV/labs; 2 months MTM with labs Winter Casiano, PharmD, BCOP Clinical Pharmacist, [facility] Oral Chemotherapy [facility] 06/10/2024, 10:47 AM Pertinent labs: Latest Reference Range & Units 04/10/24 12:58 05/10/24 09:11 06/10/24 09:34 WBC 4.00 - 10.80 K/uL 8.22 7.81 7.58 RBC 3.85 - 5.15 M/uL 2.98 3.10 3.31 HGB 12.0 - 15.3 g/dL 9.2 (L) 9.6 (L) 10.1 (L) HCT 36.0 - 45.2 % 28.8 (L) 30.2 (L) 31.8 (L) MCV 81.5 - 97.5 fL 96.6 97.4 96.1 MCH 27.0 - 34.0 pg 30.9 31.0 30.5 MCHC 32.0 - 36.0 g/dL 31.9 31.8 31.8 RDW 11.5 - 15.5 % 14.2 13.9 13.2 PLT 140 - 400 K/uL 284 418 (H) 324 MPV 6.6 - 11.1 fL 10.4 9.9 10.1 CBC WITH WBC DIFFERENTIAL Rpt ! Rpt ! Rpt ! Absolute Neutrophils 1.80 - 7.70 K/uL 5.08 4.65 4.73 Time Spent on Encounter: 6 - 10 minutes Encounter Group: Hematology Encounter Interventions Item Category: Oral Chemotherapy Other: Avatrombopag Problem/Rationale: Effectiveness: Needs additional monitoring - Medication Requires monitoring Safety: Needs additional monitoring - Medication Requires monitoring Pharmacist Intervention(s): Care coordination and Lab monitoring Magnitude of Intervention: Monitoring with direction (Level 1) documented in this encounter Plan of Treatment Upcoming Encounters Date Type Department Care Team (Late st Contact Info) Description 06/19/2024 9:15 AM EST Office Visit [facility] Surgery [facility] [address] [facility] [address] Nichole Werner MD [facility] [address] 06/27/2024 2:00 PM EST Office Visit Orthopaedics [facility] 132 [facility] [place] [address] Adarsh Quevedo PA-C 132 [facility] [place] [address] 07/10/2024 1:30 PM EST Office Visit Hematology/Oncology [facility] [address] [facility] [phone] Ama Maldonado CRNP [address] [place] [address] [place] [address] 07/31/2024 10:20 AM EST Office Visit Pulmonary Medicine, [facility] [address] [place] [address] Enrique Fernandez MD [address] [facility] [address] 08/09/2024 9:00 AM EST Pharmacy Pharmacy Hematology Oncology [facility] [address] [place] [address] [facility] Hem/Onc [address] [place] [address] Health Maintenance Due Date Last Done Comments DTap/Tdap Vaccines (1 - Tdap) 09/29/1954 CKD PHOS USE SMARTSET 89673 11/11/2023 06/10/2024, 0 11/10/2022 Albumin/Creatinine Ratio 05/11/2024 05/11/2023, 07/24 Adult Wellness Visit 01/23/2025 01/24/2024 Depression Screening 05/29/2025 05/29/2024 O2 ASSESSMENT COMPLETED IN PAST YEAR FOR COPD 05/29/2025 05/29/2024 CKD HGB USE SMARTSET 89915 06/10/202506/10, 06/10/2024, 05/10/2024, Additional history exists DXA Scan 12/07/2032 12/07/2022 [...] purpura documented in this encounter Care Teams Waste Water Treatment Plant Operator Relationship Specialty Start Date End Date Toshia Reynaga DO [address] [place] [address] PCP - General Family Medicine 12/07/22 documented as of this encounter
--- OUTSIDE RECORDS SUMMARY | 2024-09-05 22:33 | External Medical Summary ---
Author Name Unknown Address Unknown Organization K09:[facility] [place] [address] Laboratory Report Ordering Provider Test Date Status RAMU VASQUES 06/10/2024 09:34:17 Final Observation Date Value Abnormality Reference (Units ) Status SYNC LEUKOCYTES IN BLOOD BY AUTOMATED COUNT 06/10/2024 09:34:17 7.58 4.00-10.80 (K/uL) Final Segs 06/10/2024 09:34:17 62.4 40.0-75.0 (%) Final Lymphs % 06/10/2024 09:34:17 26.0 18.0-42.0 (%) Final Monos 06/10/2024 09:34:17 8.3 1.0-11.0 (%) Final Eosinophils 06/10/2024 09:34:17 2.8 0.0-6.0 (%) Final Basos 06/10/2024 09:34:17 0.5 0.0-2.0 (%) Final Absolute Segs 06/10/2024 09:34:17 4.73 1.80-7.70 (K/uL) Final Lymphs, absolute 06/10/2024 09:34:17 1.97 1.00-4.80 (K/ul) Final Monos, Abs 06/10/2024 09:34:17 0.63 0.00-1.10 (K/uL) Final Eos, Abs 06/10/2024 09:34:17 0.21 0.00-0.70 (K/uL) Final Basos, Abs 06/10/2024 09:34:17 0.04 0.00-0.20 (K/uL) Final Performing Location [facility] [place] [address]
--- OUTSIDE RECORDS SUMMARY | 2024-09-05 22:33 | External Medical Summary | Summary of Care ---
Author Name Unknown Organization [facility] Address [address] [place] [address] Phone [phone] Care Team Providers Care Final Inspector Movement Assembly Name Role Phone Toshia Reynaga DO Primary Care Provider [phone] Reason for Visit * Reason Comments Mohs Surgery L lateral neck Encounter Details Date Type Department Care Team (Late st Contact Info) Description 06/19/2024 9:15 AM EST Office Visit MOHS Surgery [facility] [address] [place] [address] Nichole Werner MD [address] [place] [address] Basal cell carcinoma (BCC) of left side of neck* Allergies Active Allergy Reactions Criticality Noted Date Comments Lisinopril Other (Please comment) 05/06/2022 Burning in throat documented as of this encounter (statuses as of 06/26/2024) Medications Cyanocobalamin 1000 MCG Oral Tablet Take [...] as of this encounter (statuses as of 06/26/2024) Active Problems Problem Noted Date Diagnosed Date [...] as of this encounter (statuses as of 06/26/2024) Resolved Problems Problem Noted Date Diagnosed Date Resolved Date Chronic obstructive pulmonary disease 05/11/2023 06/08/2023 Overview: Per COPD GOLD Classification documented as of this encounter (statuses as of 06/26/2024) Immunizations No known immunizationsdocumented as of this [...] as of this encounter Progress Notes * Nichole Werner MD - 06/22/2024 5:16 AM EST [facility] Mohs Surgery Note (See separate transcribed operative note for further detail) History: Edilma Kennedy is a 88 year old patient seen for evaluation and management of the following lesion: A. Skin, Left lateral neck, shave: Basal cell carcinoma, nodular type (at least) Patient problem list reviewed. Patient medication/allergy lists reviewed. Examination: Edilam Kennedy is alert, oriented and appears well and in no distress. The patient's skin is remarkable for: Left lateral neck: 1.9 x 1.0 cm pink plaque Impression/Plan: Basal cell carcinoma - left lateral neck MMS Standard Mohs micrographic technique was utilized to treat this tumor. Microscopic examination of the specimen allowed the Mohs surgeon, whose dual role is to function as both surgeon and pathologist, to precisely identify the location of any remaining tumor or ascertain that the tissue margins were free of tumor. This process of excision of remaining tumor, mapping, and histologic exam was repeated until the tumor was excised completely. Patient identified, procedure verified, site identified and verified with the patient. Time out completed. Surgical removal of the lesion discussed with the patient (risks and benefits, including possibility of scarring, infection, bleeding, recurrence or potential for further treatment). I have specifically identified the site with the patient. I have discussed the fact that the patient will have a scar after the procedure regardless of granulation or repair with sutures. There is a risk of injury to nerves causing temporary or permanent numbness. Questions answered and verbal and written consent was obtained. 1 stage(s) Anesthetic: 0.05% lidocaine with 1:100,000 epinephrine. Repair: Primary Intermediate layered repair (see separate operative report for details) Absorbable sutures Wound care was discussed verbally, demonstrated and printed wound instructions given as well as wound care supplies. Patient instructed to call with questions or concerns. Personal contact information provided. Follow-up: as needed Nichole Werner MD Associate, Mohs Micrographic Surgery & Dermatologic Surgery 06/19/2024 documented in this encounter Procedure Notes * Nichole Werner MD - 06/24/2024 12:00 PM EST CLINIC NOTES [place] [address] MOHS MICROGRAPHIC SURGERY MarciaEdilma [facility]# [id number] 06/19/2024 MOHS NUMBER: [id number] BIOPSY: [id number] OPERATION: SURGICAL EXCISION OF CUTANEOUS MALIGNANCY USING CONTINUOUS MICROSCOPIC CONTROL(MOHS MICROGRAPHIC SURGERY) DIAGNOSIS: nodular basal cell carcinoma LOCATION: left lateral neck INDICATION FOR MOHS SURGERY: Large Size,Location SURGEON: Nichole Werner M.D. ROADS AND PARKING LOTS SWEEPER OPERATOR SURGEON: NONE ROADS AND PARKING LOTS SWEEPER OPERATOR SURGEON: NONE ANESTHETIC: Buffered lidocaine 0.5% with epinephrine 1:200,000 LOGISTIC MANAGER: Nichole Werner M.D. PREOPERATIVE SIZE OF LESION: 1.9 x 1.0 cm POSTOPERATIVE SIZE OF DEFECT: 2.5 x 1.4 cm ESTIMATED BLOOD LOSS: 2CC PROCEDURE: Time out called. Patient identified. Procedure matches verbalized consent. left lateral neck identified and verified and confirmed immediately prior to the procedure. Site marked. Thin layers of tumor-containing tissue were excised at each stage of surgery. These were cut into smaller tissue sections which were examined microscopically in a systematic fashion. Examination of the entire base and superficial peripheral margin allowed microscopic tumor extensions to be located and mapped. In accordance with the Mohs technique, this procedure enabled the maximum amount of normal tissue to be preserved while achieving the highest cure rate for cutaneous malignancy. At each surgical stage, the patient was prepped, the proposed excision outlined on the skin, and the area was reanesthetized as needed. STAGE I: The patient was prepped and the area of surgery was outlined. The operative site was anesthetized with a local injection of buffered lidocaine 0.5% with epinephrine 1:200,000. Following this the clinically apparent portion of the tumor was surgically removed. Hemostasis was achieved with an electrosurgical device. A thin layer of tissue was surgically excised and hemostasis was obtained. A reference map was drawn and the excised tissue was cut into 2 sections for examination in the micrographic laboratory. Edges of each section were dyed in order to achieve precise orientation. Horizontal sectioning of the base and continuous peripheral margins were then carried out and the prepared microscopic sections were examined by Nichole Werner M.D.. Any areas of residual nodular basal cell carcinoma were indicated on the reference map, pinpointing the location in which further tissue excision was necessary. At this point, no further tumor cells were identified and the tumor eradication was considered to be complete for a total of 1 stage of surgery in which multiple microscopic slices of 2 tissue sections had been examined. WOUND MANAGEMENT: This wound was reconstructed with a an intermediate repair. The beveled edges of the Mohs defect were excised at a 90 degree angle relative to surrounding skin. Burow's triangles were excised from the poles of the wound and oriented to use relaxed skin tension lines and anatomic borders to greatest advantage. Meticulous hemostasis was obtained with the electrosurgical device. The wound was repaired in a layered fashion to close potential space and to precisely and securely approximate the wound edges. Total volume of Buffered lidocaine 0.5% with epinephrine 1:200,000, for Mohs Surgery and reconstruction was 15 ml. The final closure was 5.3 cm. in length. Subcutaneous closure material: Interrupted 4-0 Monocryl Cutaneous closure material: Running 5-0 Fast gut Nichole Werner M.D. Associate Department of Dermatology documented in this encounter Nursing Notes * Jerrica Card LPN - 06/19/2024 9:20 AM EST Chief Complaint Patient presents with Mohs Surgery L lateral neck Referral Doctor: Emely Hypertension History: Yes, refer to medication information for treatment. Diabetes History: No Thyroid History: No Bleeding Tendency: Yes, refer to medication information for treatment. Artificial Valve or Joint: no Pacemaker: no Defibrillator: no Hepatitis/HIV Exposure: No Smoking: no Consent signed yes documented in this encounter Plan of Treatment Upcoming Encounters Date Type Department Care Team (Late st Contact Info) Description 06/27/2024 2:00 PM EST Office Visit Orthopaedics [facility] [address] [place] [address] Adarsh Quevedo PA-C [address] [place] [address] 07/10/2024 1:30 PM EST Office Visit Hematology/Oncology [facility] [address] [place] [address] Ama Maldonado, LOLITA [address] [place] [address] 07/31/2024 10:20 AM EST Office Visit Pulmonary Medicine, [facility] [address] [place] [address] [facility] [address] [facility] [address] 08/09/2024 9:00 AM EST Pharmacy Pharmacy Hematology Oncology [facility] [address] [place] [address] [facility] Hem[facility]Onc [address] [place] [address] Health Maintenance Due Date Last Done Comments DTap/Tdap Vaccines (1 - Tdap) 09[birth year]29/1954 Albumin/Creatinine Ratio 05/11/2024 05/11/2023, 07/24 Adult Wellness Visit 01/23/2025 01/24/2024 Depression Screening 05/29/2025 05/29/2024 O2 ASSESSMENT COMPLETED IN PAST YEAR FOR COPD 05/29/2025 05/29/2024 CKD HGB USE SMARTSET 49243 06/10/202506/10, 06/10/2024, 05/10/2024, Additional history exists CKD PHOS USE SMARTSET 82226 06/10/2025 06/10/2024, 0 11/10/2022 DXA Scan 12/07/2032 [...] as of this encounter Visit Diagnoses Diagnosis Basal cell carcinoma (BCC) of left side of neck- Primary documented in this encounter Care Teams Final Inspector Movement Assembly Relationship Specialty Start Date End Date Toshia Reynaga DO [address] [place] [address] PCP - General Family Medicine 12/07/22 documented as of this encounter
--- OUTSIDE RECORDS SUMMARY | 2024-09-05 22:34 | External Medical Summary | Summary of Care ---
Author Name Unknown Organization [facility] Address [address] [place] [address] Phone [phone] Care Team Providers Care Instructional Materials Director Name Role Phone Toshia Reynaga DO Primary Care Provider [phone] Reason for Visit * Reason Onset Date Comments Blood Pressure Check 03/14/2024 Encounter Details Date Type Department Care Team (Late st Contact Info) Description 03/14/2024 11:00 AM EDT Nurse Only Ancillary [facility] [place] [address] [place] [address] Nurse, Int Med [address] [facility] [place] [address] Blood Pressure Check Allergies Active Allergy Reactions Criticality Noted Date Comments Lisinopril Other (Please comment) 05/06/2022 Burning in throat documented as of this encounter (statuses as of 03/14/2024) Medications Medication Sig Dispensed Refills Start Date [...] as of this encounter (statuses as of 03/14/2024) Active Problems Problem Noted Date Diagnosed Date [...] as of this encounter (statuses as of 03/14/2024) Resolved Problems Problem Noted Date Diagnosed Date Resolved Date Chronic obstructive pulmonary disease 05/11/2023 06/08/2023 Overview: Per COPD GOLD Classification documented as of this encounter (statuses as of 03/14/2024) Immunizations No known immunizationsdocumented as of this [...] Sign Reading Time Taken Comments Blood Pressure 128/60 03/14/2024 11:14 AM EDT Pulse 54 03/14/2024 11:14 AM EDT Temperature - - Respiratory Rate - - Oxygen Saturation - - Inhaled Oxygen Concentration - - Weight - - Height - - Body Mass Index - - documented in this encounter Progress Notes * Chelsie Dean MED ASSIST - 03/14/2024 11:18 AM EDT Edilma Kennedy presented for blood pressure check per provider orders. The blood pressure was obtained using the left arm in the sitting position using a adult cuff. The results were charted in Vital Signs. BP Readings from Last 3 Encounters: 03/14/24 128/60 03/08/24 158/62 02/14/24 133/57 BP 128/60 (BP Site: Left Arm, BP Position: Sitting, BP Cuff Size: Regular) | Pulse 54 Patient denies headache, pressure in head, dizziness, lightheadedness, chest discomfort, focal neurological symptoms, change in vision, nose bleeds. Did patient take medications today? Yes Patient was instructed to follow-up as per their next scheduled appt documented in this encounter Plan of Treatment Upcoming Encounters Date Type Department Care Team (Late st Contact Info) Description 03/15/2024 9:00 AM EDT Pharmacy Pharmacy Hematology Oncology [facility] [address] [place] [address] [facility], [facility] Hem/Onc [address] [place] [address] 04/10/2024 1:30 PM EDT Office Visit Hematology/Oncology [facility] [address] [place] [phone] Ama Maldonado CRNP [address] [place] [address] [place] [address] 04/26/2024 9:20 AM EDT Office Visit Family Practice [facility] [address] [facility] [place] [address] Toshia Reynaga DO [address] [place] [address] 06/19/2024 9:15 AM EST Office Visit MOHS Surgery [facility] [address] [place] [address] Nichole Werner MD [address] [place] [address] 07/31/2024 10:20 AM EST Office Visit Pulmonary Medicine, [facility] [address] [place] [address] Enrique Fernandez MD [address] [facility] [place] [address] Scheduled Orders Name Type Priority Associated Diagnoses Orde r Schedule BLOOD PRESSURE Procedures Routine HTN, goal below 140/90 Ordered: 03/14/2024 Health Maintenance Due Date Last Done Comments Pneumococcal Vaccine: 65+ Years (1 of 2 - PCV) 09/29/1941 Depression Screening 1947 DTaP,Tdap,and Td Vaccines (1 - Tdap) 09[birth year]29/1954 Zoster Vaccines (1 of 2) 09/29/1985 COVID-19 Vaccine (1 - season) 2023 CKD PHOS USE SMARTSET 49745 11/11/2023 11/10/2022 Influenza Vaccine (FLU shot) (#1) 2024 Albumin/Creatinine Ratio 05/11/2024 05/11/2023, 07/24 Adult Wellness Visit 01/23/2025 01/24/2024 CKD HGB USE SMARTSET 64693 03/08/202503/08, 03/08/2024, 02/13/2024, Additional history exists O2 ASSESSMENT COMPLETED IN [...] hypertension documented in this encounter Care Teams Instructional Materials Director Relationship Specialty Start Date End Date Toshia Reynaga DO [address] [place] [address] PCP - General Family Medicine 12/07/22 documented as of this encounter"
--- OUTSIDE RECORDS SUMMARY | 2024-09-05 22:34 | External Medical Summary ---
Author Name Unknown Address Unknown Organization K09[facility] [place] [address] Laboratory Report Ordering Provider Test Date Status RAMU VASQUES 04/10/2024 12:58:34 Final Observation Date Value Abnormality Reference (Units ) Status SYNC LEUKOCYTES IN BLOOD BY AUTOMATED COUNT 04/10/2024 12:58:34 8.22 4.00-10.80 (K/uL) Final Segs 04/10/2024 12:58:34 61.8 40.0-75.0 (%) Final Lymphs % 04/10/2024 12:58:34 27.0 18.0-42.0 (%) Final Monos 04/10/2024 12:58:34 8.0 1.0-11.0 (%) Final Eosinophils 04/10/2024 12:58:34 2.7 0.0-6.0 (%) Final Basos 04/10/2024 12:58:34 0.5 0.0-2.0 (%) Final Absolute Segs 04/10/2024 12:58:34 5.08 1.80-7.70 (K/uL) Final Lymphs, absolute 04/10/2024 12:58:34 2.22 1.00-4.80 (K/ul) Final Monos, Abs 04/10/2024 12:58:34 0.66 0.00-1.10 (K/uL) Final Eos, Abs 04/10/2024 12:58:34 0.22 0.00-0.70 (K/uL) Final Basos, Abs 04/10/2024 12:58:34 0.04 0.00-0.20 (K/uL) Final Performing Location [facility] [address]
--- OUTSIDE RECORDS SUMMARY | 2024-09-05 22:34 | External Medical Summary | Summary of Care ---
Author Name Unknown Organization [facility] Address [address] [place] [address] Phone [phone] Care Team Providers Care Marketing Data Specialist Name Role Phone Toshia Reynaga DO Primary Care Provider [phone] Reason for Visit * Reason Onset Date Comments Test Results 03/11/2024 Encounter Details Date Type Department Care Team (Late st Contact Info) Description 03/11/2024 Telephone General Internal Medicine [facility] [address] [facility] [place] [id number] Wendy Diana PA-C [address] [facility] [place] [address] Test Results Allergies Active Allergy Reactions Criticality Noted Date Comments Lisinopril Other (Please comment) 05/06/2022 Burning in throat documented as of this encounter (statuses as of 03/11/2024) Medications Medication Sig Dispensed Refills Start Date [...] as of this encounter (statuses as of 03/11/2024) Active Problems Problem Noted Date Diagnosed Date [...] as of this encounter (statuses as of 03/11/2024) Resolved Problems Problem Noted Date Diagnosed Date Resolved Date Chronic obstructive pulmonary disease 05/11/2023 06/08/2023 Overview: Per COPD GOLD Classification documented as of this encounter (statuses as of 03/11/2024) Immunizations No known immunizationsdocumented as of this [...] encounter Miscellaneous Notes * Telephone Encounter - Olamide Awad MED ASSIST - 03/11/2024 9:49 AM EDT Called patient and informed of results. Patient verbalized understanding and will follow up as scheduled for BP check on 03/14. * Telephone Encounter - Olamide Awad MED ASSIST - 03/11/2024 9:47 AM EDT ----- Message from Wendy Diana sent at 03/11/2024 8:15 AM EDT ----- Renal function stable. Electrolytes look good. Inflammatory markers also normal, which is good. F/up for BP check with nursing this week as sched. documented in this encounter Plan of Treatment Upcoming Encounters Date Type Department Care Team (Late st Contact Info) Description 03/14/2024 11:00 AM EDT Nurse Only Ancillary [facility] [place] [address] [place] [address] Nurse, Int Med [facility] [place] [address] 03/15/2024 9:00 AM EDT Pharmacy Pharmacy Hematology Oncology [facility] [address] [place] [address] [facility], [facility] Hem/Onc [address] [place] [address] 04/10/2024 1:30 PM EDT Office Visit Hematology/Oncology [facility] [place] 200 [facility] [place] [phone] Ama Maldonado CRNP [address] [place] [address] 04/26/2024 9:20 AM EDT Office Visit [facility] [address] [place] [address] Toshia Reynaga DO [address] [place] [address] 06/19/2024 9:15 AM EST Office Visit MOHS Surgery [facility] [address] [place] [address] Nichole Werner MD [address] [place] [address] 07/31/2024 10:20 AM EST Office Visit Pulmonary Medicine, [facility] [address] [facility] [place] [address] Enrique Fernandez MD [address] [place] [address] Health Maintenance Due Date Last Done Comments Pneumococcal Vaccine: 65+ Years (1 of 2 - PCV) 09/29/1941 Depression Screening 1947 DTaP,Tdap,and Td Vaccines (1 - Tdap) 09/29/1954 Zoster Vaccines (1 of 2) 09/29/1985 COVID-19 Vaccine (1 - 2022- season) 2023 CKD PHOS USE SMARTSET 36191 11/11/2023 11/10/2022 Influenza Vaccine (FLU shot) (#1) 2024 Albumin/Creatinine Ratio 05/11/2024 05/11/2023, 07/24 Adult Wellness Visit 01/23/2025 01/24/2024 CKD HGB USE SMARTSET 96498 03/08/202503/08, 03/08/2024, 02/13/2024, Additional history exists O2 [...] filedocumented as of this encounter Care Teams Marketing Data Specialist Relationship Specialty Start Date End Date Toshia Reynaga DO [address] [place] [address] PCP - General Family Medicine 12/07/22 documented as of this encounter
--- OUTSIDE RECORDS SUMMARY | 2024-09-05 22:34 | External Medical Summary | Summary of Care ---
Author Name Unknown Organization [facility] Address [address] [place] [address] Phone [phone] Care Team Providers Care Paste Mixer Name Role Phone Toshia Reynaga DO Primary Care Provider [phone] Reason for Visit * Reason Onset Date Comments Test Results Lab 03/11/2024 Encounter Details Date Type Department Care Team (Late st Contact Info) Description 03/11/2024 Telephone Family Practice [facility] [address] [place] [address] Toshia Reynaga DO [address] [place] [address] Test Results Lab Allergies Active Allergy Reactions Criticality Noted Date [...] encounter Miscellaneous Notes * Telephone Encounter - Chelsie Dean MED ASSIST - 03/14/2024 1:10 PM EDT Results provided to patient at today's BP check. * Telephone Encounter - Chelsie Dean MED ASSIST - 03/11/2024 11:29 AM EDT Left message for the patient to call the office. Upon return call please transfer to a dedicated telephone nurse. * Telephone Encounter - Chelsie Dean MED ASSIST - 03/11/2024 11:29 AM EDT ----- Message from Wendy Diana sent at 03/08/2024 3:45 PM EDT ----- Noted anemia is stable and slightly improved from last results. Platelet count normal. Rest of labsresults still pending. documented in this encounter Plan of Treatment Upcoming Encounters Date Type Department Care Team (Late st Contact Info) Description 03/15/2024 9:00 AM EDT Pharmacy Pharmacy Hematology Oncology [facility] [address] [place] [address] [facility], [facility] Hem/Onc [address] [place] [address] 04/10/2024 1:30 PM EDT Office Visit Hematology/Oncology [facility] 200 [facility] [place] [address] Ama Maldonado CRNP [address] [place] [address] 04/26/2024 9:20 AM EDT Office Visit Family Practice [facility] [address] [place] [address] Toshia Reynaga DO [address] [place] [address] 06/19/2024 9:15 AM EST Office Visit MOHS Surgery [facility] [address] [place] [address] Nichole Werner MD [address] [place] [address] 07/31/2024 10:20 AM EST Office Visit Pulmonary Medicine, [facility] [address] [place] [address] Enrique Fernandez MD [address] [place] [address] Health Maintenance Due Date Last Done Comments Pneumococcal Vaccine: 65+ Years (1 of 2 - PCV) 09/29/1941 Depression Screening 1947 DTaP,Tdap,and Td Vaccines (1 - Tdap) 09/29/1954 Zoster Vaccines (1 of 2) 09/29/1985 COVID-19 Vaccine (1 - season) 2023 CKD PHOS USE SMARTSET 33166 11/11/2023 11/10/2022 Influenza Vaccine (FLU shot) (#1) 2024 Albumin/Creatinine Ratio 05/11/2024 05/11/2023, 07/24 Adult Wellness Visit 01/23/2025 01/24/2024 CKD HGB USE SMARTSET 46023 03/08/202503/08, 03/08/2024, 02/13/2024, Additional history exists O2 [...] filedocumented as of this encounter Care Teams Paste Mixer Relationship Specialty Start Date End Date Toshia Reynaga DO [address] [place] [address] PCP - General Family Medicine 12/07/22 documented as of this encounter
--- OUTSIDE RECORDS SUMMARY | 2024-09-05 22:34 | External Medical Summary | Summary of Care ---
Author Name Unknown Organization [facility] Address [address] [place] [address] Phone [phone] Care Team Providers Care Kosher Butcher Name Role Phone Toshia Reynaga DO Primary Care Provider [phone] Reason for Visit * Reason Onset Date Comments Blood Pressure Check 03/14/2024 Encounter Details Date Type Department Care Team (Late st Contact Info) Description 03/14/2024 Telephone Family Practice [facility] [address] [facility] [place] [address] Wendy Diana PA-C [address] [place] [address] Blood Pressure Check Allergies Active Allergy Reactions [...] - Chelsie Dean MED ASSIST - 03/14/2024 5:23 PM EDT Patient aware. * Telephone Encounter - Wendy Diana PA-C - 03/14/2024 11:57 AM EDT Noted--BP stable. Continue current regimen. Thank you! * Telephone Encounter - Chelsie Dean MED ASSIST - 03/14/2024 11:19 AM EDT Edilma Kennedy presented for blood [...] 9:00 AM EDT Pharmacy Pharmacy Hematology Oncology [facility] [address] [place] [address] [facility] [place] [facility], [facility] Hem/Onc [address] [place] [address] 04/10/2024 1:30 PM EDT Office Visit Hematology/Oncology [facility] [place] [address] [place] [address] Ama Maldonado CRNP [address] [place] [address] 04/26/2024 9:20 AM EDT Office Visit Family Practice [facility] [address] [place] [address] Toshia Reynaga DO [address] [place] [address] 06/19/2024 9:15 AM EST Office Visit MOHS Surgery [facility] [address] [place] [place] [address] Nichole Werner MD [address] [place] [address] 07/31/2024 10:20 AM EST Office Visit Pulmonary Medicine, [facility] [address] [place] [address] [facility] [address] [facility] [id number] Health Maintenance Due Date Last Done Comments Pneumococcal Vaccine: 65+ Years (1 of 2 - PCV) 09/29/1941 Depression Screening 1947 DTaP,Tdap,and Td Vaccines (1 - Tdap) 09/29/1954 Zoster Vaccines (1 of 2) 09/29/1985 COVID-19 Vaccine (1 - 2022- season) 2023 CKD PHOS USE SMARTSET 41824 11/11/2023 11/10/2022 Influenza Vaccine (FLU shot) (#1) 2024 Albumin/Creatinine Ratio 05/11/2024 05/11/2023, 07/24 Adult Wellness Visit 01/23/2025 01/24/2024 CKD HGB USE SMARTSET 29112 03/08/202503/08, 03/08/2024, 02/13/2024, Additional history exists O2 [...] filedocumented as of this encounter Care Teams Kosher Butcher Relationship Specialty Start Date End Date Toshia Reynaga DO [address] [place] [address] PCP - General Family Medicine 12/07/22 documented as of this encounter"
--- OUTSIDE RECORDS SUMMARY | 2024-09-05 22:34 | External Medical Summary | Summary of Care ---
Author Name Unknown Organization [facility] Address [address] [place] [address] Phone [phone] Care Team Providers Care Lumber Chain Offbearer Name Role Phone Toshia Reynaga DO Primary Care Provider [phone] Reason for Visit * Reason Comments Medication Management Encounter Details Date Type Department Care Team (Late st Contact Info) Description 03/15/2024 9:00 AM EDT Pharmacy Pharmacy Hematology Oncology [facility] [address], [place] [id number] [facility], [facility] Hem/Onc [address], [place] [phone] Chronic ITP (idiopathic thrombocytopenia) (HCC)* Allergies Active Allergy Reactions Criticality Noted Date Comments Lisinopril Other (Please comment) 05/06/2022 Burning in throat documented as of this encounter (statuses as of 03/15/2024) Medications Medication Sig Dispensed Refills Start Date [...] as of this encounter (statuses as of 03/15/2024) Active Problems Problem Noted Date Diagnosed Date [...] as of this encounter (statuses as of 03/15/2024) Resolved Problems Problem Noted Date Diagnosed Date Resolved Date Chronic obstructive pulmonary disease 05/11/2023 06/08/2023 Overview: Per COPD GOLD Classification documented as of this encounter (statuses as of 03/15/2024) Immunizations No known immunizationsdocumented as of this [...] Progress Notes * Winter Casiano, [facility] - 03/15/2024 11:01 AM EDT MEDICATION THERAPY MANAGEMENT AVATROMBOPAG TREATMENT PROGRESS NOTE Edilma Kennedy [phone] Patient Phone Numbers son Christian Son: Christian Communication: Spoke to: Patient Treatment: Medication: Avatrombopag (Doptelet) Indication/Staging/Diagnosis Code: ITP/D69.3 Dose: 20mg M-F ( 01/11/24) Administration: with food Start Date: November 2019 Primary Hand Tube Winder/Oncologist: Dr. Gabriel Choi Additional therapy: Rutiximab x 2 Dose adjustment / medication hold: 09/14/23-09/24/23: avatrombopag held due to thrombocytosis (PLT 919K) 09/25/23: resume avatrombopag at 20mg daily 10/25/23-11/06/23: avatrombopag held due to thrombocytosis (PLT 684K) 01/11/24: avatrombopag DR 20mg M-F due to ongoing thrombocytosis Interval History: Pt admitted to [facility] 05/23/22 for bleeding and PLT < 10K and transferred to [facility] 05/24/22 and discharged 06/18/22 Admitted to [facility] 09/01/23-09/06/23 for CHF/COPD exacerbation - avatrombopag continued during admission despite PLT 718K 09/01/23 Admitted to [facility] 10/18/23-10/22/23 for COPD exacerbation Admitted to [facility] 11/09/23-11/12/23 for thrombocytopenia and received methylprednisolone and increased dose of avatrombopag 40mg daily Admitted to [facility] 11/15/23-11/19/23 for symptomatic a fib and discharged on apixaban Administered avatrombopag 40mg daily while admitted Per TE 11/17/23, pt okay to receive apixaban given elevated PLT Per OV 02/14/24, lab monitoring extended to monthly No concerns, tolerating therapy Changes to medication list since last visit? No Assessment and plan: PLT above goal (50-200K) but stable Hgb low but improving All other labs stable Continue current avatrombopag dose Repeat labs with OV 04/10 Assessment of compliance: compliant Dose adjustment needed based on lab or adverse drug reaction? No Follow up: 1 month OV/labs; 2 months MTM with labs Winter Casiano, PharmD, BCOP Clinical Pharmacist, MTDM Oral Chemotherapy [facility] 03/15/2024, 11:07 AM Pertinent labs: Latest Reference Range & Units 02/02/24 13:27 02/13/24 13:17 03/08/24 15:23 WBC 4.00 - 10.80 K/uL 8.21 8.76 8.05 RBC 3.85 - 5.15 M/uL 3.31 3.25 3.35 HGB 12.0 - 15.3 g/dL 9.8 (L) 9.7 (L) 10.1 (L) HCT 36.0 - 45.2 % 31.6 (L) 31.0 (L) 31.3 (L) MCV 81.5 - 97.5 fL 95.5 95.4 93.4 MCH 27.0 - 34.0 pg 29.6 29.8 30.1 MCHC 32.0 - 36.0 g/dL 31.0 31.3 32.3 RDW 11.5 - 15.5 % 13.9 13.4 13.7 PLT 140 - 400 K/uL 432 (H) 234 247 MPV 6.6 - 11.1 fL 10.8 10.2 10.6 CBC WITH WBC DIFFERENTIAL Rpt ! Rpt ! Rpt ! Absolute Neutrophils 1.80 - 7.70 K/uL 5.40 6.34 5.20 Time Spent on Encounter: 6 - 10 [...] PM EDT Office Visit Hematology/Oncology [facility] [place] [address] [place] [address] Ama Maldonado CRNP [address] [place] [address] [place] [address] 04/26/2024 9:20 AM EDT Office Visit Family Practice [facility] [address] [place] [address] Toshia Reynaga DO [address] [place] [address] 05/10/2024 9:00 AM EDT Pharmacy Pharmacy Hematology Oncology [facility] [address] [place] [address] [facility], [facility] Hem/Onc [address] [place] [address] 06/19/2024 9:15 AM EST Office Visit [facility] [address] [place] [address] Nichole Werner MD [address] [place] [address] 07/31/2024 10:20 AM EST Office Visit Pulmonary Medicine, [facility] [address] [place] [address] Enrique Fernandez MD [address] [facility] [address] Health Maintenance Due Date Last Done Comments Pneumococcal Vaccine: 65+ Years (1 of 2 - PCV) 09/29/1941 Depression Screening 1947 DTaP,Tdap,and Td Vaccines (1 - Tdap) 09/29/1954 Zoster Vaccines (1 of 2) 09/29/1985 COVID-19 Vaccine (1 - 2022-24 season) 2023 CKD PHOS USE SMARTSET 14764 11/11/2023 11/10/2022 Influenza Vaccine (FLU shot) (#1) 2024 Albumin/Creatinine Ratio 05/11/2024 05/11/2023, 07/24 Adult Wellness Visit 01/23/2025 01/24/2024 CKD HGB USE SMARTSET 23581 03/08/202503/08, 03/08/2024, 02/13/2024, Additional history exists O2 [...] purpura documented in this encounter Care Teams Lumber Chain Offbearer Relationship Specialty Start Date End Date Toshia Reynaga DO [address] [place] [address] PCP - General Family Medicine 12/07/22 documented as of this encounter
--- NOTE | 2024-09-05 22:43 | History & Physical Report ---
Date of Service September 05, 2024 Assessment & Plan (1) COPD exacerbation: Plan: 88-year-old male with past medical history significant for COPD, chronic respiratory failure with hypoxia uses oxygen 2 L at nighttime and sometimes in the daytime, moderate pulm hypertension, atrial fibrillation, hypertension, constipation, protein calorie malnutrition, CKD stage III, chronic ITP who lives at home with her son comes because of shortness of breath and cough. Patient says she was doing okay until today. In the afternoon today she was short of breath and her heart was racing and she was flushed. Then she seemed to improved. Son called the PCP and advised to go to the ER if the symptoms recur. Her symptoms started to come back again when they decided come to the ER. Currently resting comfortably and hemodynamically stable. She is having a lot of cough and bringing whitish phlegm. Denies any fevers. Denies chest pain. No nausea. No abdominal pain. Somewhat constipated. Micturating okay. Denies any headache. Has some runny nose. No sore throat. Appetite is okay. No difficulty swallowing. COPD exacerbation Chronic respiratory failure with hypoxia on home oxygen Possible left lung pneumonia Respiratory BioFire negative Rocephin and Doxy IV Solu-Medrol 40 mg 3 times daily Nebs [id number] and as needed Continue home inhalers Close monitor History of atrial fibrillation On metoprolol and Eliquis Will monitor Hypertension On amlodipine and metoprolol and Lasix Will monitor CKD stage III Presented with creatinine of 0.9 Will follow labs Mild elevation troponin possible demand ischemia Will follow serial enzymes Chronic ITP On Doptelet 20 mg daily except Monday and Monday Currently platelets are 702. Will hold Doptelet for now Follow repeat labs. May need to discuss with Heme/onco Dr.Nilesh Choi. Chronic anemia Hemoglobin 10.5 around baseline Will follow labs Constipation Stool softeners DVT prophylaxis Eliquis Disposition Med/telemetry Full code History of Present Illness Chief Complaint: Shortness of breath and cough Primary Care Provider: Toshia Reynaga DO 88-year-old male with past medical history significant for COPD, chronic respiratory failure with hypoxia uses oxygen 2 L at nighttime and sometimes in the daytime, moderate pulm hypertension, atrial fibrillation, hypertension, constipation, protein calorie malnutrition, CKD stage III, chronic ITP who lives at home with her son comes because of shortness of breath and cough. Patient says she was doing okay until today. In the afternoon today she was short of breath and her heart was racing and she was flushed. Then she seemed to improved. Son called the PCP and advised to go to the ER if the symptoms recur. Her symptoms started to come back again when they decided come to the ER. Currently resting comfortably and hemodynamically stable. She is having a lot of cough and bringing whitish phlegm. Denies any fevers. Denies chest pain. No nausea. No abdominal pain. Somewhat constipated. Micturating okay. Denies any headache. Has some runny nose. No sore throat. Appetite is okay. No difficulty swallowing. Past medical history. As mentioned above Past surgical history. Excision of face/scalp tumor subcutaneous Social history. . Quit smoking 1979 smoked 0.3 pack a day for 5 years. No alcohol use. No drug use. Family history. Sister had breast cancer. Mother had COPD. Father had cancer. Brother had cancer. Allergies Allergy/AdvReac Type Severity Reaction Status Date / Time lisinopril AdvReac Intermediate Gastrointestinal Verified 12/05/23 23:46 Upset Home Medications Medication Instructions Recorded Confirmed Type albuterol sulfate 2.5 mg/3 mL 2.5 mg continuous nebulization Q4H 09/05/24 09/05/24 History (0.083 %) solution for nebulization PRN Shortness Of Breath Or Wheezing albuterol sulfate 90 mcg/actuation 2 puff inhalation Q4H PRN 09/05/24 09/05/24 History aerosol inhaler Shortness Of Breath Or Wheezing amlodipine 5 mg tablet 5 mg PO DAILY 09/05/24 09/05/24 History apixaban 2.5 mg tablet (Eliquis) 2.5 mg PO BID 09/05/24 09/05/24 History avatrombopag 20 mg tablet 20 mg PO UD 09/05/24 09/05/24 History (Doptelet (10 tab pack)) ferrous sulfate 325 mg (65 mg 325 mg PO BID 09/05/24 09/05/24 History iron) tablet,delayed release fluticasone fur. 100 mcg-umeclid 1 inh inhalation DAILY 09/05/24 09/05/24 History 62.5 mcg-vilant 25 mcg inhalat.powder (Trelegy Ellipta) furosemide 20 mg tablet 20 mg PO DAILY 09/05/24 09/05/24 History metoprolol succinate 50 mg 50 mg PO BID 09/05/24 09/05/24 History tablet,extended release 24 hr polyethylene glycol 3350 17 17 g PO DAILY 09/05/24 09/05/24 History gram/dose oral powder Past Med/Surg History Problem List (Updated 09/05/24 @ 23:38 by Lee Ann Dodd DO) Acute exacerbation of chronic obstructive pulmonary disease (COPD) (Acute) COPD exacerbation Pneumonia (Acute) SOB (shortness of breath) (Acute) Chronic hypoxic respiratory failure, on home oxygen therapy Acute on chronic diastolic HF (heart failure) SOB (shortness of breath) Hypokalemia (Acute) Hypomagnesemia (Acute) Congestive heart failure (Acute) Anemia (Acute) Hypoxemia (Acute) Atrial fibrillation with rapid ventricular response (Acute) Acute idiopathic thrombocytopenic purpura (Acute) Thrombocytopenia (Acute) Gingival bleeding (Acute) Petechiae (Acute) Social History Smoking Status: Former smoker Hx Alcohol Use: No Hx Substance Use: No Preferred Language: Hungarian Communication Ability: Effective Taker Away Required: No Beliefs That Will Affect Care: None Current Living Situation: Family Current Living Situation Comment: Lives with son Feels Safe at Home: Yes Assistive Devices: Oxygen - Continuous and Walker Review of Systems Review of Systems: All systems reviewed & are unremarkable except as noted in HPI & below Physical Exam Physical Exam: General- Not in distress Head- atraumatic Eyes- PERRL. ENT- oropharynx clear Neck- supple, no JVD. Lungs- diminished b/l breath sounds, bibasilar crackles Heart- regular rhythm; no murmur, no gallop. Abdomen- normal bowel sounds, soft, nontender, no distension Extremities- no pretibial edema, no erythema seen Neuro- alert, oriented PERRL, no facial palsy; no dysarthria; moves extremities Results & Data Results & Data Vital Signs (Past 12 Hours) Vital Signs Temp Pulse Pulse Resp BP BP Pulse Ox 09/05/24 21:00 69 131/66 99 09/05/24 19:00 73 20 142/75 H 98 09/05/24 18:30 70 L 09/05/24 17:19 67 09/05/24 17:17 74 20 170/76 H 95 09/05/24 17:17 98 09/05/24 15:33 09/05/24 15:27 36.7 C 89 24 185/67 H 98 O2 Del Method O2 Flow Rate 09/05/24 21:00 Nasal Cannula 4 09/05/24 19:00 Nasal Cannula 4 09/05/24 18:30 Nasal Cannula 0 09/05/24 17:19 09/05/24 17:17 Room Air 09/05/24 17:17 Nasal Cannula 2 09/05/24 15:33 Nasal Cannula 4 09/05/24 15:27 Nasal Cannula 4 Diagnostic Findings Laboratory Results WBC 16.41 K/ul (4.8-10.8) H 09/05/24 16:10 RBC 3.51 M/uL (4.20-5.40) L 09/05/24 16:10 Hgb 10.5 g/dl (12.0-16.0) L 09/05/24 16:10 Hct 32.6 % (37.0-47.0) L 09/05/24 16:10 MCV 92.9 fL (80.0-100.0) 09/05/24 16:10 MCH 29.9 pg (25.0-34.0) 09/05/24 16:10 MCHC 32.2 g/dL (32.0-36.0) 09/05/24 16:10 RDW Std Deviation 46.2 fL (36.4-46.3) 09/05/24 16:10 RDW Coeff of Dwaine 13.5 % (11.5-14.5) 09/05/24 16:10 Plt Count 702 K/uL (130-400) H 09/05/24 16:10 MPV 9.6 fL (9.4-12.4) 09/05/24 16:10 Immature Gran % (Auto) 0.7 % 09/05/24 16:10 Neut % (Auto) 87.5 % 09/05/24 16:10 Lymph % (Auto) 5.1 % 09/05/24 16:10 [place] % (Auto) 5.7 % 09/05/24 16:10 Eos % (Auto) 0.5 % 09/05/24 16:10 Baso % (Auto) 0.5 % 09/05/24 16:10 Neut # (Auto) 14.35 K/uL (1.40-6.50) H 09/05/24 16:10 Lymph # (Auto) 0.83 K/uL (1.20-3.40) L 09/05/24 16:10 [place] # (Auto) 0.94 K/uL (0.11-0.59) H 09/05/24 16:10 Eos # (Auto) 0.08 K/uL (0.00-0.50) 09/05/24 16:10 Baso # (Auto) 0.09 K/uL (0.00-0.20) 09/05/24 16:10 Immature Gran # (Auto) 0.12 K/uL (0.01-0.20) 09/05/24 16:10 PT 11.8 Seconds (9.0-12.0) 09/05/24 16:10 INR 1.1 (0.9-1.1) 09/05/24 16:10 APTT 30 Seconds (21-31) 09/05/24 16:10 PTT Ratio 1.1 09/05/24 16:10 Sodium 141 mmol/L (136-145) 09/05/24 16:10 Potassium 4.1 mmol/L (3.5-5.1) 09/05/24 16:10 Chloride 103 mmol/L (98-107) 09/05/24 16:10 Carbon Dioxide 35 mmol/L (21-32) H 09/05/24 16:10 Anion Gap 3 (3-11) 09/05/24 16:10 BUN 20 mg/dl (6-23) 09/05/24 16:10 Creatinine 0.91 mg/dl (0.6-1.2) 09/05/24 16:10 Est Cr Clr Drug Dosing 29.3 ml/min 09/05/24 16:10 eGFR 60.68 09/05/24 16:10 BUN/Creatinine Ratio 22.0 (10-20) H 09/05/24 16:10 Glucose 118 mg/dl (70-99(Fasting)) H 09/05/24 16:10 Calcium 9.2 mg/dl (8.6-10.3) 09/05/24 16:10 Magnesium 2.0 mg/dl (1.7-2.4) 09/05/24 16:10 Total Bilirubin 1.1 mg/dl (0.2-1.0) H 09/05/24 16:10 AST 20 U/L (13-39) 09/05/24 16:10 ALT 9 U/L (7-52) 09/05/24 16:10 Alkaline Phosphatase 38 U/L (34-104) 09/05/24 16:10 Troponin I High Sens 17.2 pg/ml (0-14) H 09/05/24 16:10 B-Natriuretic Peptide 640 pg/ml (0-100) H 09/05/24 16:10 Total Protein 6.6 gm/dl (6.0-8.3) 09/05/24 16:10 Albumin 3.9 gm/dl (3.4-5.0) 09/05/24 16:10 Globulin 2.7 gm/dl (2.5-4.0) 09/05/24 16:10 Albumin/Globulin Ratio 1.4 (0.9-2) 09/05/24 16:10 TSH 4.592 uIu/ml (0.300-4.500) H 09/05/24 16:10 Free T4 1.06 ng/dl (0.61-1.60) 09/05/24 16:10 Urine Color Yellow 09/05/24 18: Urine Appearance Clear (Clear) 09/05/24 18: Urine pH 8.0 (4.5-7.5) H 09/05/24 18: Ur Specific [place] 1.008 (1.000-1.030) 09/05/24 18:27 Urine Protein Negative (Negative) 09/05/24 18: Urine Glucose (UA) Negative (Negative) 09/05/24 18: Urine Ketones Negative (Negative) 09/05/24 18: Urine Blood Negative (Negative) 09/05/24 18: Urine Nitrite Negative (Negative) 09/05/24 18: Urine Bilirubin Negative (Negative) 09/05/24 18: Urine Urobilinogen Negative (Negative) 09/05/24 18: Ur Leukocyte Esterase Negative (Negative) 09/05/24 18: Adenovirus (PCR) Not Detected (NotDetected) 09/05/24 18:27 B. pertussis DNA (PCR) Not Detected (NotDetected) 09/05/24 18:27 B.parapertussis DNA PCR Not Detected (NotDetected) 09/05/24 18:27 C. pneumoniae DNA (PCR) Not Detected (NotDetected) 09/05/24 18:27 Coronavirus OC43 (PCR) Not Detected (NotDetected) 09/05/24 18:27 Coronavirus HKU1 (PCR) Not Detected (NotDetected) 09/05/24 18:27 Coronavirus 229E (PCR) Not Detected (NotDetected) 09/05/24 18:27 SARS-CoV-2 (PCR) Not Detected (NotDetected) 09/05/24 18:27 Coronavirus NL63 (PCR) Not Detected (NotDetected) 09/05/24 18:27 Human Metapneumovir PCR Not Detected (NotDetected) 09/05/24 18:27 Influenza Type A (PCR) Not Detected (NotDetected) 09/05/24 18:27 Influenza Type B (PCR) Not Detected (NotDetected) 09/05/24 18:27 M. pneumoniae (PCR) Not Detected (NotDetected) 09/05/24 18:27 Parainfluenza 1 (PCR) Not Detected (NotDetected) 09/05/24 18:27 Parainfluenza 2 (PCR) Not Detected (NotDetected) 09/05/24 18:27 Parainfluenza 3 (PCR) Not Detected (NotDetected) 09/05/24 18:27 Parainfluenza 4 (PCR) Not Detected (NotDetected) 09/05/24 18:27 RSV (PCR) Not Detected (NotDetected) 09/05/24 18:27 Entero/Rhino (PCR) Not Detected (NotDetected) 09/05/24 18:27 Impressions Chest X-Ray 09/05/24 15:30 EXAM: Radiograph of the Chest 1 View INDICATION: Palpitations. Shortness of breath. TECHNIQUE: Frontal view of the chest. COMPARISON: 12/06/2023 FINDINGS: Lungs and pleural spaces: Asymmetric bronchovascular thickening left lung. No consolidation or pulmonary edema. No pleural effusion or pneumothorax. Heart: Shape and configuration within normal limits allowing for technique. Mediastinum: Normal contour. Bones/joints: Degenerative changes noted throughout the spine. No acute osseous abnormality seen. Soft tissues: No abnormality noted. No radiopaque foreign body noted. Upper abdomen: No abnormality noted. IMPRESSION: Asymmetric increased bronchovascular markings in the left lung. Consider unilateral bronchitis, infectious pneumonitis and aspiration. ACT 112: Negative or not required by law. Electronically signed by Estefani Pierson 09-05-2024 5:57 PM ECG Additional Comments: ECG. Sinus rhythm with first-degree AV block with rate of 75. QTc 446 Code Status & VTE Plan VTE Prophylaxis Plan VTE Prophylaxis will be ordered: Yes
[2024-09-06] MEDS ORDERED: ALBUTEROL HFA 8 GM INHALER INH PRN (00:03)
[2024-09-06] MEDS ORDERED: NITROGLYCERIN SL 0.4 MG/TAB TAB SL PRN (00:03)
[2024-09-06] MEDS ORDERED: ACETAMINOPHEN 325 MG TAB PO PRN (00:03)
[2024-09-06 01:36] VITALS: TEMP 97.9
[2024-09-06 05:12] LABS: Hematocrit (blood only) 28.4 % (37.0-47.0); Hemoglobin 9.5 g/dl (12.0-16.0); Mean Corpuscular Hemoglobin 30.8 pg (25.0-34.0); Mean Corpuscular Hgb Conc 33.5 g/dL (32.0-36.0); Mean Corpuscular Volume 92.2 fL (80.0-100.0); Mean Platelet Volume 9.5 fL (9.4-12.4); Platelet Count 547 K/uL (130-400); RDW Coefficient of Variation 13.4 % (11.5-14.5); Red Blood Count 3.08 M/uL (4.20-5.40)
[2024-09-06 05:28] LABS: BUN Creatinine Ratio 21.8 (10-20); Calcium 8.8 mg/dl (8.6-10.3); Creatinine Clr Calc Pharmacy 30.7 ml/min; Magnesium 1.9 mg/dl (1.7-2.4); Potassium 4.3 mmol/L (3.5-5.1)
[2024-09-06 05:29] LABS: Basophils # (auto) 0.07 K/uL (0.00-0.20); Basophils % (auto) 0.4 %; Eosinophils # (auto) 0.01 K/uL (0.00-0.50); Eosinophils % (auto) 0.1 %; Immature Granulocytes # (auto) 0.12 K/uL (0.01-0.20); Immature Granulocytes % (auto) 0.8 %; Lymphocytes # (auto) 1.09 K/uL (1.20-3.40); Lymphocytes % (auto) 6.9 %; Monocytes % (auto) 1.3 %; Neutrophils # (auto) 14.21 K/uL (1.40-6.50); Neutrophils % (auto) 90.5 %; RBC Morphology Unremarkable
[2024-09-06] MEDS: LEVALBUTEROL 1.25 MG/3 ML NEB NEB SCH ×2 (07:05→11:06)
[2024-09-06] MEDS: FUROSEMIDE 20 MG TAB PO SCH (08:35)
[2024-09-06] MEDS: APIXABAN 2.5 MG TAB PO SCH (08:36)
[2024-09-06] MEDS: amLODIPine BESYLATE 5 MG TAB PO SCH (08:36)
[2024-09-06] MEDS: METOPROLOL SUCC 50MG EXT REL TAB PO SCH (08:36)
[2024-09-06] MEDS: POLYETHYLENE (MIRALAX) 17 GM PACK PO SCH (08:36)
[2024-09-06] MEDS: FERROUS SULFATE 325 MG TAB PO SCH (08:36)
[2024-09-06] MEDS: UMECLIDINIUM/VILANTEROL 62.5/25MCG 7 PUFFS/INHALER INH SCH (08:37)
[2024-09-06] MEDS: FLUTICASONE FUROATE 200MCG 14 PUFFS/INHALER INH SCH (08:37)
[2024-09-06] MEDS: DOXYCYCLINE HYCLATE 100 MG in DEXTROSE 5% MINI-B 100 ML IV SCH (08:37)
[2024-09-06] MEDS: methylPREDNISolone 40 MG in SYRINGE 0 ML IV SCH (08:37)
[2024-09-06] MEDS ORDERED: methylPREDNISolone 125 MG/2 ML VIAL IV SCH (09:00)
[2024-09-06] MEDS ORDERED: NON-FORMULARY MEDICATION (Fluticasone-Umeclidin-Vilanter [Trelegy Ellipta] 100-62.5-25 mcg INH SCH (09:00)
[2024-09-06] MEDS: LEVALBUTEROL 1.25 MG/3 ML NEB NEB PRN (11:02)
[2024-09-06 11:59] VITALS: RESP 22; O2SAT 100
--- NOTE | 2024-09-06 12:36 | Electrocardiogram Report ---
Test Reason : Blood Pressure : */* mmHG Vent. Rate : 75 BPM Atrial Rate : 75 BPM P-R Int : 212 ms QRS Dur : 84 ms QT Int : 400 ms P-R-T Axes : 85 30 76 degrees QTcB Int : 446 ms Sinus rhythm with 1st degree A-V block Poor R wave progression, consider anterior NE vs. lead placement vs. LVH Abnormal ECG When compared with ECG of 08-Dec-2023 05:58, Sinus rhythm has replaced Atrial fibrillation T wave amplitude has increased in Inferior leads Confirmed by Sahil Clayton ([id number]) on 09/06/2024 12:35:51 PM Referred By: Confirmed By: Sahil Clayton
[2024-09-06 15:19] VITALS: BP 129/54; PULSE 68
[2024-09-06] MEDS ORDERED: cefTRIAXone SODIUM 2,000 MG/50 ML BAG IV SCH (20:00)
--- NOTE | 2024-09-06 21:05 | Discharge Summary ---
Discharge Summary Date of Service September 06, 2024 Principal Dx & Hospital Course #1 = Principal Diagnosis (1) COPD exacerbation: 88-year-old male with past medical history significant for COPD, chronic respiratory failure with hypoxia uses oxygen 2 L at nighttime and sometimes in the daytime, moderate pulm hypertension, atrial fibrillation, hypertension, constipation, protein calorie malnutrition, CKD stage III, chronic ITP who lives at home with her son comes because of shortness of breath and cough. Patient says she was doing okay until today. In the afternoon today she was short of breath and her heart was racing and she was flushed. Then she seemed to improved. Son called the PCP and advised to go to the ER if the symptoms recur. Her symptoms started to come back again when they decided come to the ER. Currently resting comfortably and hemodynamically stable. She is having a lot of cough and bringing whitish phlegm. Denies any fevers. Denies chest pain. No nausea. No abdominal pain. Somewhat constipated. Micturating okay. Denies any headache. Has some runny nose. No sore throat. Appetite is okay. No difficulty swallowing. COPD exacerbation Chronic respiratory failure with hypoxia on home oxygen Possible left lung pneumonia -Respiratory BioFire negative -much improved, per patient feels at baseline, walking well (witnessed by myself and respiratory therapy -discharge home on PO abx and steroids History of atrial fibrillation -On metoprolol and Eliquis -Will monitor Hypertension -On amlodipine and metoprolol and Lasix -Will monitor CKD stage III -Presented with creatinine of 0.9 -Will follow labs Mild elevation troponin -possible demand ischemia -Will follow serial enzymes Chronic ITP -On Doptelet 20 mg daily except Monday and Monday -Currently platelets are 702. Will hold Doptelet for now -Follow repeat labs. May need to discuss with Heme/onco Dr.Nilesh Choi. Chronic anemia -Hemoglobin 10.5 around baseline -Will follow labs Constipation -Stool softeners DVT prophylaxis Patrick Notes For Next Care Provider 88-year-old male with past medical history significant for COPD, chronic respiratory failure with hypoxia uses oxygen 2 L at nighttime and sometimes in the daytime, moderate pulm hypertension, atrial fibrillation, hypertension, constipation, protein calorie malnutrition, CKD stage III, chronic ITP who lives at home with her son comes because of shortness of breath and cough. In the ED, noted to have possible COPD exaccerbation and CAP, admitted to medicine. On medicine, given inhalers, abx and steroids with significant improvement. Per patient feels at baseline and walking well, and patient is medically stable for discharge home. Medication Changes From Visit -abx, steroids Admission HPI Per Admitting Provider 88-year-old male with past medical history significant for COPD, chronic respira tory failure with hypoxia uses oxygen 2 L at nighttime and sometimes in the daytime, moderate pulm hypertension, atrial fibrillation, hypertension, constipation, protein calorie malnutrition, CKD stage III, chronic ITP who lives at home with her son comes because of shortness of breath and cough. Patient says she was doing okay until today. In the afternoon today she was short of breath and her heart was racing and she was flushed. Then she seemed to improved. Son called the PCP and advised to go to the ER if the symptoms recur. Her symptoms started to come back again when they decided come to the ER. Currently resting comfortably and hemodynamically stable. She is having a lot of cough and bringing whitish phlegm. Denies any fevers. Denies chest pain. No nausea. No abdominal pain. Somewhat constipated. Micturating okay. Denies any headache. Has some runny nose. No sore throat. Appetite is okay. No difficulty swallowing. Past medical history. As mentioned above Past surgical history. Excision of face/scalp tumor subcutaneous Social history. . Quit smoking 1979 smoked 0.3 pack a day for 5 years. No alcohol use. No drug use. Family history. Sister had breast cancer. Mother had COPD. Father had cancer. Brother had cancer. Discharge Exam Gen: A&O 3 NAD HEENT: NCAT, EOMI, not icteric. External ears normal. No rhinorrhea. Moist mucous membranes. Neck: Supple, full range of motion, no observable masses, No meningeal sign. Lungs: No Respiratory distress. CV: RRR, no edema. Abdomen: Soft, nondistended, No rebound tenderness. MSK: No joint swelling, no redness. Skin: No rashes, petechiae, lesions. Normal color per patient. Neuro: Normal Gait, Grossly intact. Psych: Appropriate for situation. Updated Medication List Medication Instructions Recorded Confirmed Type albuterol sulfate 2.5 mg/3 mL 2.5 mg continuous nebulization Q4H 09/05/24 09/05/24 History (0.083 %) solution for nebulization PRN Shortness Of Breath Or Wheezing albuterol sulfate 90 mcg/actuation 2 puff inhalation Q4H PRN 09/05/24 09/05/24 History aerosol inhaler Shortness Of Breath Or Wheezing amlodipine 5 mg tablet 5 mg PO DAILY 09/05/24 09/05/24 History apixaban 2.5 mg tablet (Eliquis) 2.5 mg PO BID 09/05/24 09/05/24 History avatrombopag 20 mg tablet 20 mg PO UD 09/05/24 09/05/24 History (Doptelet (10 tab pack)) ferrous sulfate 325 mg (65 mg 325 mg PO BID 09/05/24 09/05/24 History iron) tablet,delayed release fluticasone fur. 100 mcg-umeclid 1 inh inhalation DAILY 09/05/24 09/05/24 History 62.5 mcg-vilant 25 mcg inhalat.powder (Trelegy Ellipta) furosemide 20 mg tablet 20 mg PO DAILY 09/05/24 09/05/24 History metoprolol succinate 50 mg 50 mg PO BID 09/05/24 09/05/24 History tablet,extended release 24 hr polyethylene glycol 3350 17 17 g PO DAILY 09/05/24 09/05/24 History gram/dose oral powder amoxicillin 500 mg-potassium 1 tab PO BID 5 days #10 tabs 09/06/24 Rx clavulanate 125 mg tablet (Augmentin) doxycycline hyclate 100 mg capsule 100 mg PO BID 5 days #10 caps 09/06/24 Rx prednisone 20 mg tablet 20 mg PO BID 5 days #10 tabs 09/06/24 Rx Hospital Stay Data Consultations 09/05/24 20:37 ED Decision to Admit Stat Pending Results Patient Have Any Pending Studies at Discharge: No Discharge Instructions Given to Patient (Per Discharging Provider) 1. Please finish the course of antibiotics sent to your pharmacy. 2. Take COPD medications as prescribed. 3. Finish course of steroids as prescribed. Total Time Total Time Spent Total Time Spent (In Minutes): I spent a total of 35 minutes in direct patient care, including [id number] time with the patient and/or family, reviewing medical records, ordering and reviewing diagnostic tests, and coordinating care with other healthcare providers. This time includes: history taking, physical examination, medical decision making, counseling, ECG interpretation, imaging interpretation, lab i nterpretation, orders, and education, excluding time spent in the performance of separately billed services.
== END 2024-09-06 16:07 | disposition home or self-care (01) | DRG 190 ==
LOC: ED 15:21 → EDINP 22:23

== ENCOUNTER 2024-10-12 10:00 | Inpatient (IN) ==
--- OUTSIDE RECORDS SUMMARY | 2024-10-12 10:05 | External Medical Summary | Summary of Care ---
Author Name Unknown Organization [facility] Address [address] [place] [address] Phone [phone] Care Team Providers Care Learning Consultant Name Role Phone Toshia Reynaga DO Primary Care Provider [phone] Reason for Visit * Reason Comments Medication Management Encounter Details Date Type Department Care Team (Late st Contact Info) Description 10/10/2024 9:00 AM EDT Pharmacy Pharmacy Hematology Oncology [facility] [address] [place], [place] [id number] [facility], [facility] Hem/Onc [address], [place] [id number] Chronic ITP (idiopathic thrombocytopenia) ([facility])* Allergies Active Allergy Reactions Criticality Noted Date Comments Lisinopril Other (Please comment) 05/06/2022 Burning in throat documented as of this encounter (statuses as of 10/10/2024) Medications Cyanocobalamin 1000 MCG Oral Tablet Take [...] evening meals. 180 Tablet 1 4 Active Metoprolol Succinate [...] 180 Blister Dosing Unit 1 5 Active Apixaban 2.5 MG Oral Tablet (Eliquis) Take 1 Tablet by mouth in the morning and 1 Tablet before bedtime. 14 Tablet 5 Active Doptelet 20 MG Oral Tablet (Avatrombopag Maleate) Take 20 mg by mouth daily except for Monday and Monday. 20 Tablet 6 10/10/2024 3:54 PM EDT 5 Active Amoxicillin-Pot Clavulanate 500-125 MG Oral Tablet (Augmentin) Take 1 Tablet by mouth in the morning and 1 Tablet at noon and 1 Tablet before bedtime. 5 025 Discontin ued(Medic ation List Clean Up) Doxycycline Hyclate 100 MG Oral Capsule Take 1 Capsule by mouth in the morning and 1 Capsule before bedtime. 5 025 Discontin ued(Medic ation List Clean Up) predniSONE 20 MG Oral Tablet (Deltasone) Take 1 Tablet by mouth in the morning and 1 Tablet before bedtime. 5 025 Discontin ued(Medic ation List Clean Up) documented as of this encounter (statuses as of 10/10/2024) Active Problems Problem Noted Date Diagnosed Date COPD, group D, by GOLD 2017 classification 09/30 Overview: Per COPD GOLD Classification Atrial fibrillation 01/24/2024 Chronic respiratory failure with hypoxia 024 Moderate pulmonary hypertension 09/18/2023 Hx of nonmelanoma skin cancer 12/01/2022 Overview (12/22/2022): basal cell carcinoma (L superior parietal scalp 2018), R medial inferior forehead 12/13, L inferior forehead 12/13, R post auricular region 12/13) Stage 3a chronic kidney disease 11/07/2022 Protein-calorie malnutrition 06/27/2022 HTN, goal below 140/90 04/25/2022 Chronic ITP (idiopathic thrombocytopenia) 2021 Constipation 04/25/2022 documented as of this encounter (statuses as of 10/10/2024) Resolved Problems Problem Noted Date Diagnosed Date Resolved Date COPD, group B, by GOLD 2017 classification 06/05/2023 10/03/2024 Overview: Per COPD GOLD Classification Chronic obstructive pulmonary disease 05/11/2023 06/08/2023 Overview: Per COPD GOLD Classification documented as of this encounter (statuses as of 10/10/2024) Immunizations No known immunizationsdocumented as of this [...] No 05/29/2024 Does the household have a [facility] source [facility] income? (Household - for ages [...] Notes * Winter Casiano, [facility] - 10/10/2024 11:34 AM EDT MEDICATION THERAPY MANAGEMENT AVATROMBOPAG TREATMENT PROGRESS NOTE Edilma Kennedy [phone] Patient Phone Numbers son Christian Son: Christian Communication: Spoke to: Patient Treatment: Medication: Avatrombopag (Doptelet) Indication/Staging/Diagnosis Code: ITP/D69.3 Dose: 20mg M-F ( 10/10/24) Administration: with food Start Date: November 2019 Primary Radiator Core Tester/Oncologist: Dr. Gabriel Choi Additional therapy: Rutiximab x 2 Dose adjustment / medication hold: 09/14/23-09/24/23: avatrombopag held due to thrombocytosis (PLT 919K) 09/25/23: resume avatrombopag at 20mg daily 10/25/23-11/06/23: avatrombopag held due to thrombocytosis (PLT 684K) 01/11/24: avatrombopag DR 20mg M-F due to ongoing thrombocytosis 09/06/24: DR 20mg MWF due to thrombocytosis (PLT 702K) 10/10/24: DI to M-F due to thrombocytopenia (PLT 30K) Interval History: Pt admitted to [facility] 05/23/22 for bleeding and PLT < 10K and transferred to [facility] 05/24/22 and discharged 06/18/22 Admitted to [facility] 09/01/23-09/06/23 for CHF/COPD exacerbation - avatrombopag continued during admission despite PLT 718K 09/01/23 Admitted to [facility] 10/18/23-10/22/23 for COPD exacerbation Admitted to [facility] 11/09/23-11/12/23 for thrombocytopenia and received methylprednisolone and increased dose of avatrombopag 40mg daily Admitted to [facility] 11/15/23-11/19/23 for symptomatic a fib and discharged on apixaban Administered avatrombopag 40mg daily while admitted Per TE 11/17/23, pt okay to receive apixaban given elevated PLT Per OV 02/14/24, lab monitoring extended to monthly States she has been without medication since 09/30/24 Reports increased bruising on legs but denies increased bleeding Changes to medication list since last visit? No Assessment and plan: PLT declining to 30K - below goal secondary to being without medication All other labs stable Per discussion with Allan Irvin, [facility] PharmD, financial assistance completed and RX ready to ship. GSPto reach out to pt promptly to set up RX shipment Per discussion with Dr. Choi, increase avatrombopag dose back to 20mg M-F Updated RX sent to [facility] Repeat labs with OV in 1 week (ordered standing cbcd) Assessment of compliance: non compliant Dose adjustment needed based on lab or adverse drug reaction? Yes, DI Follow up: 1 week OV/labs; 2 weeks MTM with anticipated labs Winter Caisano, PharmD, BCOP Clinical Pharmacist, [facility] Oral Chemotherapy 10/10/2024, 3:25 PM Pertinent labs: Latest Reference Range & Units 09/12/24 14:29 10/10/24 10:51 WBC 4.00 - 10.80 K/uL 20.80 (H) 9.67 RBC 3.85 - 5.15 M/uL 3.89 3.46 HGB 12.0 - 15.3 g/dL 11.7 (L) 10.6 (L) HCT 36.0 - 45.2 % 36.5 33.0 (L) MCV 81.5 - 97.5 fL 93.8 95.4 MCH 27.0 - 34.0 pg 30.1 30.6 MCHC 32.0 - 36.0 g/dL 32.1 32.1 RDW 11.5 - 15.5 % 13.7 13.9 PLT 140 - 400 K/uL 705 (H) 30 (L) MPV 6.6 - 11.1 fL 11.4 13.3 CBC WITH WBC DIFFERENTIAL Rpt ! Rpt ! Absolute Neutrophils 1.80 - 7.70 K/uL 14.53 (H) 7.07 Time Spent on Encounter: 21 - 25 minutes Encounter Group: Hematology Encounter Interventions Item Category: Oral Chemotherapy Other: Avatrombopag Problem/Rationale: Safety: Needs additional monitoring - Medication Requires monitoring Adherence - Medication product not available Pharmacist Intervention(s): Clarification with Provider, Contacted specialty pharmacy, Dose increased, Lab monitoring, Orders labs, and Toxicity monitoring Magnitude of Intervention: Modification of medication for asymtomatic patients (Level 2) documented in this encounter Plan of Treatment Upcoming Encounters Date Type Department Care Team (Late st Contact Info) Description 10/17/2024 9:30 AM EDT Office Visit Hematology/Oncology [facility] [address] [facility] [place] [phone] Zeeshan Choi MD [address] [facility] [place] [address] 10/22/2024 11:00 AM EDT Office Visit Dermatology [facility] [address] [facility] [place] [address] Deep Han MD [address] [facility] [place] [address] 10/24/2024 9:00 AM EDT Pharmacy Pharmacy Hematology Oncology [facility] [address] [place] [address] [facility], [facility] Hem/Onc [address] [place] [address] 12/10/2024 10:00 AM EDT Office Visit Family Practice [facility] [address] [address] Toshia Reynaga DO [address] [place] [address] 12/24/2024 1:30 PM EDT Office Visit Pulmonary Medicine, [facility] [address] [place] [phone] Enrique Fernandez MD [address] [place] [address] 02/10/2025 9:40 AM EDT Office Visit Family Practice [facility] [address] [place] [address] Toshia Reynaga DO [address] [place] [address] Health Maintenance Due Date Last Done Comments DTap/Tdap Vaccines (1 - Tdap) 09/29/1954 Albumin/Creatinine Ratio 05/11/2024 05/11/2023, 07/24 Adult Wellness Visit 01/23/2025 01/24/2024 Depression Screening 05/29/2025 05/29/2024 CKD PHOS USE SMARTSET 40400 06/10/2025 06/10/2024, 0 11/10/2022 O2 ASSESSMENT COMPLETED IN PAST YEAR FOR COPD 09/12/2025 09/12/2024 CKD HGB USE SMARTSET 63645 10/10/202510/10, 10/10/2024, 09/12/2024, Additional history exists DXA Scan 12/07/2032 12/07/2022 Alpha-1 Antitrypsin Completed 07/26/2023 COVID-19 Vaccine Discontinued HPV (Gardasil) Vaccine Aged Out No lo nger eligible based on patient's age to complete this topic Hepatitis B Vaccine Aged Out No longe r eligible based on patient's age to complete this topic MENINGOCOCCAL (MENACTRA/MENVEO) Aged Out No longer eligible based on patient's age to complete this topic Meningitis B Vaccine (Bexsero/Trumemba) Aged Out No longer eligible based on patient's age to complete this topic Pneumococcal Vaccine: 50+ Years Discontinued Zoster Vaccines Discontinued documented as of this encounter Medical Devices Not on filedocumented as of this encounter Visit Diagnoses Diagnosis Chronic ITP (idiopathic thrombocytopenia) (HCC)- Primary Immune thrombocytopenic purpura documented in this encounter Care Teams Learning Consultant Relationship Specialty Start Date End Date Toshia Reynaga DO [address] [place] [address] [address] PCP - General Family Medicine 12/07/22 documented as of this encounter
--- OUTSIDE RECORDS SUMMARY | 2024-10-12 10:05 | External Medical Summary ---
Author Name Unknown Address Unknown Organization [facility] [place] [address] Laboratory Report Ordering Provider Test Date Status CARLOSTHIAGO 10/10/2024 10:51:58 Final Observation Date Value Abnormality Reference (Units ) Status Nucleated erythrocytes/100 leukocytes [Ratio] in Blood by Automated count 10/10/2024 10:51:58 Final Performing Location [facility] - [address] [place] [address]
--- OUTSIDE RECORDS SUMMARY | 2024-10-12 10:05 | External Medical Summary | Summary of Care ---
Author Name Unknown Organization [facility] Address [address] [place] [address] Phone [phone] Care Team Providers Care Customer Order Clerk Name Role Phone Ronnell Toshiatheodore Paul DO Primary Care Provider [phone] Reason for Visit * Reason Onset Date Comments Advice 10/10/2024 Encounter Details Date Type Department Care Team (Late st Contact Info) Description 10/10/2024 Telephone Hematology/Oncology [facility] [place] [address] [facility] [place] [phone] [facility]ees[facility] [address] Advice Allergies Active Allergy Reactions Criticality Noted [...] of water or juice. 507 g 3 Active Acetaminophen 500 MG Oral Tablet [...] 6 10/10/2024 3:54 PM EDT 5 Active documented as of this encounter [...] Telephone Encounter - Berhane Tucker RN - 10/10/2024 3:56 PM EDT Called patient back, she states its a little sore and bruised but denies any severe pain/swelling. Advised to apply some cold to the area and use elevation with a pillow. If she notices worse bruising/swelling/pain she needs to go to the ER for evaluation. She verbalized understanding. * Telephone Encounter - Irina Warner OSA - 10/10/2024 3:48 PM EDT Good Afternoon! I have Randi Kennedy on my line asking to speak to a nurse. She had blood work done today in her arm and it's now all black blue and sore. She stated she's been out of her platelet meds and haven't taken it since last Monday. She stated she is scared and would like to talk to a nurse. Please call pt at [phone] documented in this encounter Plan of Treatment Upcoming Encounters Date Type Department Care Team (Late st Contact Info) Description 10/17/2024 9:30 AM EDT Office Visit Hematology/Oncology [facility] [address] [facility] [place] [phone] Zeeshan Choi MD [address] [facility] [place] [address] 10/22/2024 11:00 AM EDT Office Visit Dermatology [facility] [address] [place] [address] Deep Han MD [address] [facility] [place] [address] 10/24/2024 9:00 AM EDT Pharmacy Pharmacy Hematology Oncology [facility] [place] [address] [place] [address] [facility], [facility] Hem/Onc [address] [place] [address] 12/10/2024 10:00 AM EDT Office Visit [facility] [address] [address] Toshia Reynaga DO [address] [place] [address] 12/24/2024 1:30 PM EDT Office Visit Pulmonary Medicine, [facility] [address] [place] [phone] Enrique Fernandez MD [address] [facility] [place] [address] 02/10/2025 9:40 AM EDT Office Visit Family Practice [facility] [address] [place] [address] Toshia Reynaga, DO [address] [place] [address] Health Maintenance Due Date Last Done Comments DTap/Tdap Vaccines (1 - Tdap) 09/29/1954 Albumin/Creatinine Ratio 05/11/2024 05/11/2023, 07/24 Adult Wellness Visit 01/23/2025 01/24/2024 Depression Screening 05/29/2025 05/29/2024 CKD PHOS USE SMARTSET 98939 06/10/2025 06/10/2024, 0 11/10/2022 O2 ASSESSMENT COMPLETED IN PAST YEAR FOR COPD 09/12/2025 09/12/2024 CKD HGB USE SMARTSET 65619 10/10/202510/10, 10/10/2024, 09/12/2024, Additional history exists DXA [...] filedocumented as of this encounter Care Teams Customer Order Clerk Relationship Specialty Start Date End Date Toshia Reynaga DO [address] [place] [address] PCP - General Family Medicine 12/07/22 documented as of this encounter
--- OUTSIDE RECORDS SUMMARY | 2024-10-12 10:05 | External Medical Summary ---
Author Name Unknown Address Unknown Organization [facility] [place] [address] Laboratory Report Ordering Provider Test Date Status THIAGO GONZALEZ 10/10/2024 10:51:58 Final Observation Date Value Abnormality Reference (Units ) Status SYNC LEUKOCYTES IN BLOOD BY AUTOMATED COUNT 10/10/2024 10:51:58 9.67 4.00-10.80 (K/uL) Final Segs 10/10/2024 10:51:58 73.1 40.0-75.0 (%) Final Lymphs % 10/10/2024 10:51:58 17.3 Below low normal 18.0-42.0 (%) Final Monos 10/10/2024 10:51:58 7.0 1.0-11.0 (%) Final Eosinophils 10/10/2024 10:51:58 2.1 0.0-6.0 (%) Final Basos 10/10/2024 10:51:58 0.5 0.0-2.0 (%) Final Absolute Segs 10/10/2024 10:51:58 7.07 1.80-7.70 (K/uL) Final Lymphs, absolute 10/10/2024 10:51:58 1.67 1.00-4.80 (K/ul) Final Monos, Abs 10/10/2024 10:51:58 0.68 0.00-1.10 (K/uL) Final Eos, Abs 10/10/2024 10:51:58 0.20 0.00-0.70 (K/uL) Final Basos, Abs 10/10/2024 10:51:58 0.05 0.00-0.20 (K/uL) Final Performing Location [facility] [address] [place] [address]
--- OUTSIDE RECORDS SUMMARY | 2024-10-12 10:05 | External Medical Summary | Summary of Care ---
Author Name Unknown Organization [facility] Address [address] [place] [address] Phone [phone] Care Team Providers Care Corsets Salesperson Name Role Phone Toshia Reynaga DO Primary Care Provider [phone] Encounter Details Date Type Department Care Team (Late st Contact Info) Description 10/10/2024 Orders Only Hematology/Oncology [facility] 200 [facility] [place] [address] Zeeshan Choi MD [address] [place] [address] Thrombocytopenia, congenital and hereditary (HCC)* Allergies Active Allergy Reactions Criticality Noted [...] State [facility] [address] [place] [phone] Zeeshan Choi MD [address] [place] [address] 10/22/2024 11:00 AM EDT Office [facility] 200 [facility] [place], [place] [address] Deep Han MD 200 [facility] [place], [place] [address] 10/24/2024 9:00 AM EDT Pharmacy Pharmacy Hematology Oncology [facility] [address] [place] [address] [facility], [facility] Hem/Onc [address] [place] [address] 12/10/2024 10:00 AM EDT Office Visit [facility] [address] [facility] [place] [address] Toshia Reynaga, [address] [place] [address] 12/24/2024 1:30 PM EDT Office Visit Pulmonary Medicine, [facility] [address] [facility] [place] [address] Enrique Fernandez MD [address] [place] [address] 02/10/2025 9:40 AM EDT Office Visit [facility] [address] [place] [address] Toshia Reynaga, 132 [facility] [place] [address] Scheduled Orders Name Type Priority Associated Diagnoses Orde r Schedule CBC WITH WBC DIFFERENTIAL Lab STAT Thrombocytopenia, congenital and hereditary (HCC) Every Week for 52 Occurrences starting 10/10/2024 until 10/10/2025 Health Maintenance Due Date Last Done Comments DTap/Tdap Vaccines (1 - Tdap) 09/29/1954 Albumin/Creatinine Ratio 05/11/2024 05/11/2023, 07/24 Adult Wellness Visit 01/23/2025 01/24/2024 Depression Screening 05/29/2025 05/29/2024 CKD PHOS USE SMARTSET 80952 06/10/2025 06/10/2024, 0 11/10/2022 O2 ASSESSMENT COMPLETED IN PAST YEAR FOR COPD 09/12/2025 09/12/2024 CKD HGB USE SMARTSET 63101 10/10/202510/10, 10/10/2024, 09/12/2024, Additional history exists DXA [...] as of this encounter Visit Diagnoses Diagnosis Thrombocytopenia, 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
--- OUTSIDE RECORDS SUMMARY | 2024-10-12 10:05 | External Medical Summary | Summary of Care ---
Author Name Unknown Organization [facility] Address [address] [place] [address] Phone [phone] Care Team Providers Care Template Inspector Name Role Phone Ronnell Toshiatheodore Paul DO Primary Care Provider [phone] Encounter Details Date Type Department Care Team (Late st Contact Info) Description 10/09/2024 Telephone Hematology/Oncology [facility] 200 [facility] [place] [address] Zeeshan Choi MD [address] [place] [address] Allergies Active Allergy Reactions Criticality Noted Date Comments Lisinopril Other (Please comment) 05/06/2022 Burning in throat documented as of this encounter (statuses as of 10/09/2024) Medications Cyanocobalamin 1000 MCG Oral Tablet Take [...] (Avatrombopag Maleate) Take 20 mg by mouth once a day on Monday, Monday, and Monday only. 12 Tablet 6 5 Active Doptelet 20 MG Oral Tablet (Avatrombopag Maleate) Take 20 mg by mouth daily except for Monday and Monday. 30 Tablet 4 07/12/2024 11:04 AM EST 4 025 Discontin ued(Refil l) documented as of this encounter (statuses as of 10/09/2024) Active Problems Problem Noted Date Diagnosed Date [...] as of this encounter (statuses as of 10/09/2024) Resolved Problems Problem Noted Date Diagnosed Date Resolved Date COPD, group B, by GOLD 2017 classification 06/05/2023 10/03/2024 Overview: Per COPD GOLD Classification Chronic obstructive pulmonary disease 05/11/2023 06/08/2023 Overview: Per COPD GOLD Classification documented as of this encounter (statuses as of 10/09/2024) Immunizations No known immunizationsdocumented as of this [...] No 05/29/2024 Does the household have a [place] source of income? (Household - for ages [...] Miscellaneous Notes * Telephone Encounter - Winter Casiano, [facility] - 10/09/2024 11:12 AM EDT Updated RX sent to [facility] reflecting dose reduction * Telephone Encounter - Darwin Irvin RPh - 10/09/2024 10:51 AM EDT Good morning, Patient assistance has been completed for patient's Doptelet. Per her last [facility] note, she has been taking 20 mg on Monday, Monday, and Monday. Could you please send a new script with updated directions if appropriate? Thank you, Darwin Irvin RPh [facility] 10/09/2024, 10:52 AM documented in this encounter Plan of Treatment Upcoming Encounters Date Type Department Care Team (Late st Contact Info) Description 10/10/2024 9:00 AM EDT Pharmacy Pharmacy Hematology Oncology [address] [address] [facility], [facility] Hem/Onc [facility] [place] [place] [address] 10/10/2024 11:00 AM EDT Laboratory Laboratory [facility] [place] [address] [place] [phone] [place], Lab [address] [place] [address] 10/17/2024 9:30 AM EDT Office Visit Hematology/Oncology [facility] [place] [address] [place] [phone] Zeeshan Choi MD 200 [facility] [place] [address] 10/22/2024 11:00 AM EDT Office Visit Dermatology [facility] [place] 200 [facility] [place] [address] Deep Han MD 200 [facility] [address] [place] [address] 12/10/2024 10:00 AM EDT Office Visit [facility] [address] [place] [address] Toshia Reynaga, [address] [place] [address] 12/24/2024 1:30 PM EDT Office Visit Pulmonary Medicine, [facility] [address] [place] [address] Enrique Fernandez MD [address] [place] [address] 02/10/2025 9:40 AM EDT Office Visit [facility] [address] [place] [address] Toshia Reynaga, [address] [place] [address] Health Maintenance Due Date Last Done Comments DTap/Tdap Vaccines (1 - Tdap) 09/29/1954 Albumin/Creatinine Ratio 05/11/2024 05/11/2023, 07/24 Adult Wellness Visit 01/23/2025 01/24/2024 Depression Screening 05/29/2025 05/29/2024 CKD PHOS USE SMARTSET 09182 06/10/2025 06/10/2024, 0 11/10/2022 CKD HGB USE SMARTSET 93525 09/12/202509/12, 09/12/2024, 07/31/2024, Additional history exists O2 ASSESSMENT COMPLETED IN PAST YEAR FOR COPD 09/12/2025 09/12/2024 DXA Scan 12/07/2032 12/07/2022 Alpha-1 Antitrypsin Completed [...] filedocumented as of this encounter Care Teams Template Inspector Relationship Specialty Start Date End Date Toshia Reynaga DO [address] [place] [address] PCP - General Family Medicine 12/07/22 documented as of this encounter
--- OUTSIDE RECORDS SUMMARY | 2024-10-12 10:05 | External Medical Summary | Summary of Care ---
Author Name Unknown Organization [facility] Address [address] [place] [address] Phone [phone] Care Team Providers Care Bus Repair Supervisor Name Role Phone Toshia Reynaga DO Primary Care Provider [phone] Reason for Visit * Reason Comments Outpatient Testing Encounter Details Date Type Department Care Team (Late st Contact Info) Description 10/10/2024 11:10 AM EDT Laboratory Laboratory, [facility] [address] [place] [address] [facility] [address] [place] [address] Chronic ITP (idiopathic thrombocytopenia) ([facility]) Allergies Active Allergy Reactions Criticality [...] Tablet before bedtime. 14 Tablet 5 Active Amoxicillin-Pot Clavulanate 500-125 MG Oral [...] 025 Discontin ued(Medic ation List Clean Up) Doptelet 20 MG Oral Tablet (Avatrombopag Maleate) Take 20 mg by mouth once a day on Monday, Monday, and Monday only. 12 Tablet 6 5 025 Discontin ued(Refil l) documented as of [...] 10/17/2024 9:30 AM EDT Office Visit Hematology/Oncology [facility] 200 [place] [address] Zeeshan Choi MD [address] [facility] [place] [address] 10/22/2024 11:00 AM EDT Office Visit Dermatology [facility] [address] [place] [address] Deep Han MD 200 [place] [address] 12/10/2024 10:00 AM EDT Office Visit [facility] 132 [facility] [place] [address] Toshia Reynaga, 132 [facility] [place] [address] 12/24/2024 1:30 PM EDT Office Visit Pulmonary Medicine, [facility] 132 [facility] [place] [address] Enrique Fernandez MD [address] [place] [address] 02/10/2025 9:40 AM EDT Office Visit [facility] [address] [place] [address] Toshia Reynaga, [address] [place] [address] Health Maintenance Due Date Last Done Comments DTap/Tdap Vaccines (1 - Tdap) 09/29/1954 Albumin/Creatinine Ratio 05/11/2024 05/11/2023, 07/24 Adult Wellness Visit 01/23/2025 01/24/2024 Depression Screening 05/29/2025 05/29/2024 CKD PHOS USE SMARTSET 39937 06/10/2025 06/10/2024, 0 11/10/2022 O2 ASSESSMENT COMPLETED IN PAST YEAR FOR COPD 09/12/2025 09/12/2024 CKD HGB USE SMARTSET 83670 10/10/202510/10, 10/10/2024, 09/12/2024, Additional history exists DXA [...] Date/Time Associated Diagnosis Comments DIFFERENTIAL, AUTOMATED STAT 10/10/2024 10:51 AM EDT Chronic ITP (idiopathic thrombocytopenia) (HCC) CBC STAT 10/10/2024 10:51 AM EDT Chronic ITP (idiopathic thrombocytopenia) (HCC) CBC STAT 10/10/2024 10:51 AM EDT Chronic ITP (idiopathic thrombocytopenia) (HCC) DIFFERENTIAL, TECHNOLOGIST REVIEW Routine 10/10/2024 10:51 AM EDT Chronic ITP (idiopathic thrombocytopenia) (HCC) documented in this encounter Results * DIFFERENTIAL, TECHNOLOGIST REVIEW (10/10/2024 10:51 AM EDT) [facility] nRBCs 10/10/2024 11:25 AM EDT [facility] [place] [facility] Blood Venous blood specimen / Unknown Venipuncture / Unknown 10/10/2024 10:51 AM EDT 10/10/2024 10:51 AM EDT Ama MCHUGH LAB BLOOD ORDERABLES Anamaria l Result [facility] [place] [facility] [address] [facility] [place] [address] * (ABNORMAL) DIFFERENTIAL, AUTOMATED (10/10/2024 10:51 AM EDT) [facility] WBC 9.67 4.00 - 10.80 K/uL 10/10/2024 11:25 AM EDT [facility] [place] [facility] Neutrophils % 73.1 40.0 - 75.0 % 10/10/2024 11:25 AM EDT [facility] [place] [facility] Lymphocytes % 17.3(L) 18.0 - 42.0 % 10/10/2024 11:25 AM EDT [facility] [place] [facility] Monocytes % 7.0 1.0 - 11.0 % 10/10/2024 11:25 AM EDT [facility] [place] [facility] Eosinophils % 2.1 0.0 - 6.0 % 10/10/2024 11:25 AM EDT [facility] [place] [facility] Basophils % 0.5 0.0 - 2.0 % 10/10/2024 11:25 AM EDT [facility] [place] [facility] Absolute Neutrophils 7.07 1.80 - 7.70 K/uL 10/10/2024 11:25 AM EDT [facility] [place] [facility] Absolute Lymphocytes 1.67 1.00 - 4.80 K/ul 10/10/2024 11:25 AM EDT [facility] [place] [facility] Absolute Monocytes 0.68 0.00 - 1.10 K/uL 10/10/2024 11:25 AM EDT [facility] [place] [facility] Absolute Eosinophils 0.20 0.00 - 0.70 K/uL 10/10/2024 11:25 AM EDT [facility] [place] [facility] Absolute Basophils 0.05 0.00 - 0.20 K/uL 10/10/2024 11:25 AM EDT [facility] [place] [facility] Blood Venous blood specimen / Unknown Venipuncture / Unknown 10/10/2024 10:51 AM EDT 10/10/2024 10:51 AM EDT Ama MCHUGH LAB BLOOD ORDERABLES Anamaria orozco Result [facility] [place] [facility]10 [address] [place] [address] * (ABNORMAL) CBC (10/10/2024 10:51 AM EDT) WBC 9.67 4.00 - 10.80 K/uL 10/10/2024 11:25 AM EDT [facility] [place] [facility] RBC 3.46 3.85 - 5.15 M/uL 10/10/2024 11:25 AM EDT [facility] [place] [facility] HGB 10.6(L) 12.0 - 15.3 g/dL 10/10/2024 11:25 AM EDT [facility] [place] [facility] HCT 33.0(L) 36.0 - 45.2 % 10/10/2024 11:25 AM EDT [facility] [place] [facility] MCV 95.4 81.5 - 97.5 fL 10/10/2024 11:25 AM EDT [facility] [place] [facility] MCH 30.6 27.0 - 34.0 pg 10/10/2024 11:25 AM EDT [facility] [place] [facility] MCHC 32.1 32.0 - 36.0 g/dL 10/10/2024 11:25 AM EDT [facility] [place] [facility] RDW 13.9 11.5 - 15.5 % 10/10/2024 11:25 AM EDT [facility] [place] [facility] PLT 30(L) 140 - 400 K/uL 10/10/2024 11:25 AM EDT [facility] [place] [facility] Comment: Results rechecked. 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
--- OUTSIDE RECORDS SUMMARY | 2024-10-12 10:05 | External Medical Summary | Summary of Care ---
Author Name Unknown Organization [facility] Address [address] [place] [address] Phone [phone] Care Team Providers Care Gun Number Name Role Phone Toshia Reynaga DO Primary Care Provider [phone] Reason for Visit * Reason Comments eRx-Medication Refill Encounter Details Date Type Department Care Team (Late st Contact Info) Description 09/26/2024 Refill Family Practice [facility] [address] [place] [address] Toshia Reynaga DO [address] [place] [address] Allergies Active Allergy Reactions Criticality Noted Date Comments Lisinopril Other (Please comment) 05/06/2022 Burning in throat documented as of this encounter (statuses as of 09/27/2024) Medications Cyanocobalamin 1000 MCG Oral Tablet Take [...] 4 07/12/2024 11:04 AM EST 4 Active Additional Information Patient taking differently:20 mg OralMWF, Reported on 09/06/2024 Metoprolol Succinate ER 50 MG Oral Tablet [...] Tablet before bedtime. 14 Tablet 5 Active documented as of this encounter (statuses as of 09/27/2024) Active Problems Problem Noted Date Diagnosed Date [...] as of this encounter (statuses as of 09/27/2024) Resolved Problems Problem Noted Date Diagnosed Date Resolved Date Chronic obstructive pulmonary disease 05/11/2023 06/08/2023 Overview: Per COPD GOLD Classification documented as of this encounter (statuses as of 09/27/2024) Immunizations No known immunizationsdocumented as of this [...] Notes * Telephone Encounter - Azam Escobedo [facility] - 09/27/2024 9:32 AM EST Refused Prescriptions: Disp Refills Eliquis 2.5 MG Oral Tablet (Apixaban) 14 Tab*0 Sig: take 1 tablet by mouth every morning and BEFORE BEDTIMERefused By: AZAM ESCOBEDOReason for Refusal: Refill Not Appropriate documented in this encounter Plan of Treatment Upcoming Encounters Date Type Department Care Team (Late st Contact Info) Description 10/10/2024 9:00 AM EDT Pharmacy Pharmacy Hematology Oncology [facility] [address] [place] [address] [facility] Hem[facility]Onc [address] [place] [address] 10/10/2024 11:00 AM EDT Laboratory Laboratory [facility] [place] 200 [facility] [place] [phone] [place] [address] [address] [place] [address] 10/17/2024 9:30 AM EDT Office Visit Hematology/Oncology [facility] [place] [address] [place] [phone] Zeeshan Choi MD 200 [facility] [place] [address] 10/22/2024 11:00 AM EDT Office Visit Dermatology [facility] 200 [facility] [place] [address] Deep Han MD 200 [facility] [place] [address] 12/10/2024 10:00 AM EDT Office Visit Family Practice [facility] [address] [place] [address] Toshia Reynaga DO [address] [place] [address] 12/24/2024 1:30 PM EDT Office Visit Pulmonary Medicine, [facility] [address] [place] [address] Enrique Fernandez MD [address] [place] [address] 02/10/2025 9:40 AM EDT Office Visit Family Practice [facility] [address] [place] [address] Toshia Reynaga DO [address] [place] [address] Health Maintenance Due Date Last Done Comments DTap/Tdap Vaccines (1 - Tdap) 09/29/1954 Albumin/Creatinine Ratio 05/11/2024 05/11/2023, 07/24 Adult Wellness Visit 01/23/2025 01/24/2024 Depression Screening 05/29/2025 05/29/2024 CKD PHOS USE SMARTSET 11043 06/10/2025 06/10/2024, 0 11/10/2022 CKD HGB USE SMARTSET 06116 09/12/202509/12, 09/12/2024, 07/31/2024, Additional history exists O2 [...] filedocumented as of this encounter Care Teams Gun Number Relationship Specialty Start Date End Date Toshia Reynaga DO [address] [place] [address] PCP - General Family Medicine 12/07/22 documented as of this encounter
--- OUTSIDE RECORDS SUMMARY | 2024-10-12 10:05 | External Medical Summary ---
Author Name Unknown Address Unknown Organization [id number]:[facility] - [address] [place] [address] Laboratory Report Ordering Provider Test Date Status THIAGO GONZALEZ 10/10/2024 10:51:58 Final Observation Date Value Abnormality Reference (Units ) Status WBC, Total 10/10/2024 10:51:58 9.67 4.00-10.8 0 (K/uL) Final RBC 10/10/2024 10:51:58 3.46 3.85-5.15 (M/uL) Final Hemoglobin 10/10/2024 10:51:58 10.6 Below low normal 12 .0-15.3 (g/dL) Final HCT 10/10/2024 10:51:58 33.0 Below low normal 36. 0-45.2 (%) Final MCV 10/10/2024 10:51:58 95.4 81.5-97.5 (fL) Final MCH 10/10/2024 10:51:58 30.6 27.0-34.0 (pg) Final MCHC 10/10/2024 10:51:58 32.1 32.0-36.0 (g/dL) Final RDW 10/10/2024 10:51:58 13.9 11.5-15.5 (%) Final Platelets 10/10/2024 10:51:58 30 Below low normal 140 -400 (K/uL) Final Results rechecked. MPV 10/10/2024 10:51:58 13.3 6.6-11.1 ( fL) Final Performing Location [facility]1 0 - [address] [place] [address]
--- OUTSIDE RECORDS SUMMARY | 2024-10-12 10:05 | External Medical Summary | Summary of Care ---
Author Name Unknown Organization [facility] Address [address] [place] [address] Phone [phone] Care Team Providers Care Merchandising Internship Name Role Phone Ronnell Toshiatheodore Paul DO Primary Care Provider [phone] Encounter Details Date Type Department Care Team (Late st Contact Info) Description 10/09/2024 Telephone Hematology/Oncology [facility] 200 [facility] [place] [address] Zeeshan Choi MD [address] [place] [address] Allergies Active Allergy Reactions Criticality Noted Date [...] for Monday and Monday. 20 Tablet 6 5 Active Doptelet 20 MG Oral Tablet (Avatrombopag Maleate) Take 20 mg by mouth daily except for Monday and Monday. 30 Tablet 4 07/12/2024 11:04 AM EST 4 025 Discontin ued(Refil l) Amoxicillin-Pot Clavulanate 500-125 MG Oral Tablet (Augmentin) [...] encounter Miscellaneous Notes * Addendum Note - Winter Casiano RP - 10/10/2024 12:10 PM EDTAddended by: WINTER CASIANO on: 10/10/2024 12:10 PM Modules accepted: Orders * Telephone Encounter - Winter Casiano [facility] - 10/10/2024 12:09 PM EDT Per MTM encounter 10/10/24, increase avatrombopag back to 20mg M-F due to thrombocytopenia. Updated RX sent to [facility] * Telephone Encounter - Winter Casiano RP - 10/09/2024 11:12 AM EDT Updated RX sent to [facility] reflecting dose reduction * Telephone Encounter - Darwin Irvin [facility] - 10/09/2024 10:51 AM EDT Good morning, Patient assistance has been completed for patient's Doptelet. Per her last MTM note, she has been taking 20 mg on Monday, Monday, and Monday. Could you please send a new script with updated directions if appropriate? Thank you, Darwin Irvin RPh [facility] 10/09/2024, 10:52 AM documented in this encounter Plan of Treatment Upcoming Encounters Date Type Department Care Team (Late st Contact Info) Description 10/17/2024 9:30 AM EDT Office Visit Hematology/Oncology [facility] 200 [facility] [place] [phone] Zeeshan Choi MD 200 [facility] [place] [address] 10/22/2024 11:00 AM EDT Office Visit Dermatology [facility] 200 [facility] [place] [address] Deep Han MD 200 [facility] [place] [address] 10/24/2024 9:00 AM EDT Pharmacy Pharmacy Hematology Oncology [facility] [address] [place] [address] [facility] Hem/Onc [address] [place] [address] 12/10/2024 10:00 AM EDT Office Visit Family Practice [facility] [address] [place] [address] Toshia Reynaga DO [address] [place] [address] 12/24/2024 1:30 PM EDT Office Visit Pulmonary Medicine, [facility] [address] [place] [address] Enrique Fernandez MD [address] [place] [address] 02/10/2025 9:40 AM EDT Office Visit Family Practice [facility] [address] [place] [address] Toshia Reynaga DO [address] [place] [address] Health Maintenance Due Date Last Done Comments DTap/Tdap Vaccines (1 - Tdap) 09/29/1954 Albumin/Creatinine Ratio 05/11/2024 05/11/2023, 07/24 Adult Wellness Visit 01/23/2025 01/24/2024 Depression Screening 05/29/2025 05/29/2024 CKD PHOS USE SMARTSET 98308 06/10/2025 06/10/2024, 0 11/10/2022 O2 ASSESSMENT COMPLETED IN PAST YEAR FOR COPD 09/12/2025 09/12/2024 CKD HGB USE SMARTSET 05404 10/10/202510/10, 10/10/2024, 09/12/2024, Additional history exists DXA [...] filedocumented as of this encounter Care Teams Merchandising Internship Relationship Specialty Start Date End Date Toshia Reynaga DO [address] [place] [address] PCP - General Family Medicine 12/07/22 documented as of this encounter
--- OUTSIDE RECORDS SUMMARY | 2024-10-12 10:06 | External Medical Summary | Summary of Care ---
Author Name Unknown Organization [facility] Address [address] [place] [address] Phone [phone] Care Team Providers Care Cotton Ball Machine Tender Name Role Phone Toshia Reynaga DO Primary Care Provider [phone] Reason for Visit * Reason Onset Date Comments Hospital Follow-Up 09/09/2024 [facility] 09/06 REI call Encounter Details Date Type Department Care Team (Late st Contact Info) Description 09/09/2024 Telephone Family Practice [facility] [address] [place] [address] Ana Bautista, RN Hospital Follow-Up ([facility] 09/06 REI call) Allergies Active Allergy Reactions Criticality Noted Date Comments Lisinopril Other (Please comment) 05/06/2022 Burning in throat documented as of this encounter (statuses as of 09/09/2024) Medications Cyanocobalamin 1000 MCG Oral Tablet Take [...] taking differently:20 mg OralMWF, Reported on 09/06/2024 Eliquis 2.5 MG Oral Tablet (Apixaban) TAKE [...] 180 Blister Dosing Unit 1 5 Active Amoxicillin-Pot Clavulanate 500-125 MG Oral Tablet (Augmentin) Take 1 Tablet by mouth in the morning and 1 Tablet at noon and 1 Tablet before bedtime. 5 09/11/19 25 Active Doxycycline Hyclate 100 MG Oral Capsule Take 1 Capsule by mouth in the morning and 1 Capsule before bedtime. 5 09/11/19 25 Active predniSONE 20 MG Oral Tablet (Deltasone) Take 1 Tablet by mouth in the morning and 1 Tablet before bedtime. 5 09/11/19 25 Active documented as of this encounter (statuses as of 09/09/2024) Active Problems Problem Noted Date Diagnosed Date [...] as of this encounter (statuses as of 09/09/2024) Resolved Problems Problem Noted Date Diagnosed Date Resolved Date Chronic obstructive pulmonary disease 05/11/2023 06/08/2023 Overview: Per COPD GOLD Classification documented as of this encounter (statuses as of 09/09/2024) Immunizations No known immunizationsdocumented as of this [...] encounter Miscellaneous Notes * Telephone Encounter - Ana Bautista RN - 09/09/2024 11:32 AM EST Transitions of Care Note Reason for Referral:Recent Admission Phone visit for follow up: REI Admitted to: [facility], Date: 09/05 Discharged to: home, Date: 09/06 Diagnosis driving hospitalization: COPD Exacerbation Source/Contact: Patient SUBJECTIVE Consent: Verbal consent for review of hospital discharge: Yes REVIEW OF SYSTEMS Patient/Other Reports: Current patient/caregiver problems or concerns: none at this time CV: Denies problems Pulmonary: Denies problems Chills/Sweats/Fever:Denies chills/sweats Denies fever Appetite:Denies problems such as nausea, vomiting, burning, decreased appetite Current diet: as before Bowel: denies problems Bladder: denies problems Wound (If applicable): N/A Pain:Denies Sleep:Denies problems FUNCTIONAL STATUS: ADL'S: Needs Assistance With:N/A as pt is independent IADL'S: Needs Assistance With:N/A as pt is independent Cognitive and Mental Health: denies problems, alert and oriented x 3, and able to communicate, understand instructions, process information. MEDICATION RECONCILIATION Medications: Discharge med list reviewed with patient or caregiver New medication(s) filled since hospitalization- Augmentin, Doxy and prednisone Reports all medications taken as prescribed. Denies side effects OBJECTIVE ASSESSMENT Medication Risk Assessment: No risks identified Did patient fail outpatient treatment? No Discharge instructions available for review? Yes PLAN Symptom Monitoring Interventions:Member/caregiver education - signs and symptoms to contact PrimaryCare (DO NOT DELETE-Three mccarty symptoms patient is to report to PCP) 1. SOB 2. Worsening cough 3. 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 Educated patient/caregiver on patient right to have input on REI plan of care. Verification of Home Health/DME if indicated: NO Identified Care Gaps: Yes Care Gaps closed this call: Appointment made or confirmed, Medication adherence, and Transition of Care follow-up communication Re-evaluation of Plan of Care and progress towards goals achievement: Patient education this visit: Verbal, as above Plan to follow-up as previously scheduled, instructed to call Primary Care Provider with change in symptoms or as needed before next follow-up, discharge needs met, verbalizes understanding and agrees with plan. Ana Bautista, RN documented in this encounter Plan of Treatment Upcoming Encounters Date Type Department Care Team (Late st Contact Info) Description 09/12/2024 1:40 PM EST Office Visit [facility] [address] [place] [address] Toshia Reynaga DO [address] [place] [address] 10/10/2024 9:00 AM EDT Pharmacy Pharmacy Hematology Oncology [address] [address] [facility] Hem/Onc [facility] [place] [address] 10/10/2024 11:00 AM EDT Laboratory Laboratory [facility] [address] [facility] [place] [phone] [facility] [address] [facility] [place] [address] 10/17/2024 9:30 AM EDT Office Visit Hematology/Oncology [facility] [place] [address] [facility] [place] [phone] Zeeshan Choi MD [address] [facility] [place] [address] 02/10/2025 9:40 AM EDT Office Visit [facility] [address] [place] [address] Toshia Reynaga DO [address] [address] 02/11/2025 1:30 PM EDT Office Visit Pulmonary Medicine, [facility] [address] [place] [address] Enrique Fernandez MD [address] [place] [place] [address] Health Maintenance Due Date Last Done Comments DTap/Tdap Vaccines (1 - Tdap) 09/29/1954 Albumin/Creatinine Ratio 05/11/2024 05/11/2023, 07/24 Adult Wellness Visit 01/23/2025 01/24/2024 Depression Screening 05/29/2025 05/29/2024 CKD PHOS USE SMARTSET 05364 06/10/2025 06/10/2024, 0 11/10/2022 CKD HGB USE SMARTSET 42342 07/31/202507/31, 07/10/2024, 07/10/2024, Additional history exists O2 [...] filedocumented as of this encounter Care Teams Cotton Ball Machine Tender Relationship Specialty Start Date End Date Toshia Reynaga DO [address] [place] [address] PCP - General Family Medicine 12/07/22 documented as of this encounter
--- OUTSIDE RECORDS SUMMARY | 2024-10-12 10:06 | External Medical Summary | Summary of Care ---
Author Name Unknown Organization [facility] Address [address] [place] [address] Phone [phone] Care Team Providers Care Guard Driver Name Role Phone Toshia Reynaga DO Primary Care Provider [phone] Reason for Visit * Reason Comments Medication Management Encounter Details Date Type Department Care Team (Late st Contact Info) Description 09/06/2024 9:00 AM [facility] Pharmacy Pharmacy Hematology Oncology [facility] [address], [place] [id number] [facility] Hem/Onc [address] [place], [place] [id number] Chronic ITP (idiopathic thrombocytopenia) ([facility])* Allergies Active Allergy Reactions Criticality Noted Date Comments Lisinopril Other (Please comment) 05/06/2022 Burning in throat documented as of this encounter (statuses as of 09/06/2024) Medications Cyanocobalamin 1000 MCG Oral Tablet Take [...] [address] Blister Dosing Unit 1 5 Active documented as of this encounter (statuses as of 09/06/2024) Active Problems Problem Noted Date Diagnosed Date [...] as of this encounter (statuses as of 09/06/2024) Resolved Problems Problem Noted Date Diagnosed Date Resolved Date Chronic obstructive pulmonary disease 05/11/2023 06/08/2023 Overview: Per COPD GOLD Classification documented as of this encounter (statuses as of 09/06/2024) Immunizations No known immunizationsdocumented as of this [...] Progress Notes * Winter Casiano, [facility] - 09/06/2024 9:36 AM EST MEDICATION THERAPY MANAGEMENT AVATROMBOPAG TREATMENT PROGRESS NOTE Edilma Kennedy [phone] Patient Phone Numbers son Christian Son: Christian Communication: Spoke to: Son Treatment: Medication: Avatrombopag (Doptelet) Indication/Staging/Diagnosis Code: ITP/D69.3 Dose: 20mg MWF ( 09/06/24) Administration: with food Start Date: November 2019 Primary Coin Dealer/Oncologist: Dr. Gabriel Choi Additional therapy: Rutiximab x 2 Dose adjustment / medication hold: 09/14/23-09/24/23: avatrombopag held due to thrombocytosis (PLT 919K) 09/25/23: resume avatrombopag at 20mg daily 10/25/23-11/06/23: avatrombopag held due to thrombocytosis (PLT 684K) 01/11/24: avatrombopag DR 20mg M-F due to ongoing thrombocytosis 09/06/24: 20mg MWF due to thrombocytosis (PLT 702K) Interval History: Pt admitted to [facility] 05/23/22 for bleeding and PLT < 10K and transferred to [facility] 05/24/22 and discharged 06/18/22 Admitted to [facility] 09/01/23-09/06/23 for CHF/COPD exacerbation - avatrombopag continued during admission despite PLT 718K 09/01/23 Admitted to [facility] 10/18/23-10/22/23 for COPD exacerbation Admitted to [facility] 11/09/23-11/12/23 for thrombocytopenia and received methylprednisolone and increased dose of avatrombopag 40mg daily Admitted to [facility] 11/15/23-11/19/23 for symptomatic a fib and discharged on apixaban Administered avatrombopag 40mg daily while admitted Per TE 11/17/23, pt okay to receive apixaban given elevated PLT Per OV 02/14/24, lab monitoring extended to monthly Pt in ED 09/05/24 for COPD exacerbation and pneumonia. Son states pt is currently admitted to [facility] Voiced concern about financial assistance No other concerns at this time Changes to medication list since last visit? No Assessment and plan: PLT from 09/05/24 (see media) continue to be above goal (50-200K) at 702K secondary to methylprednisolone CBC otherwise stable Per TE 09/05/24, updated pharmacy jenise application and income documentation needed to continue assistance. Provided [facility] number and encouraged son to follow up. Son replied with understanding As per previous discussion with Dr Choi, reduce avatrombopag to 20mg MWF - med rec upated Repeat labs scheduled 10/10 Assessment of compliance: compliant Dose adjustment needed based on lab or adverse drug reaction? Yes, DR Follow up: 10/10 Winter Casiano, PharmD, OP Clinical Pharmacist, [facility] Oral Chemotherapy [facility] 09/06/2024, 11:11 AM Pertinent labs: see media Time Spent on Encounter: 11 - 15 minutes Encounter Group: Hematology Encounter Interventions Item Category: Oral Chemotherapy Other: Avatrombopag Problem/Rationale: Safety: Dosage too high - Dose too high Cost/Insurnce Issues Insurance - Other patient assistance application Pharmacist Intervention(s): Clarification with Provider, Dose decreased, Lab monitoring, Medicationreconciliation, and Toxicity monitoring Magnitude of Intervention: Modification of medication for asymtomatic patients (Level 2) documented in this encounter Plan of Treatment Upcoming Encounters Date Type Department Care Team (Late st Contact Info) Description 10/10/2024 9:00 AM EDT Pharmacy Pharmacy Hematology Oncology [place] [address] [place] [address] [facility] Hem[facility]Onc [facility] [place] [address] 10/10/2024 11:00 AM EDT Laboratory Laboratory [facility] [address] [place] [phone] [place] [facility] [address] [place] [address] 10/17/2024 9:30 AM EDT Office Visit Hematology/Oncology [facility] [address] [place] [phone] Zeeshan Choi MD [address] [place] [address] 02/10/2025 9:40 AM EDT Office Visit [facility] [address] [facility] [place] [address] Toshia Reynaga DO [address] [place] [address] 02/11/2025 1:30 PM EDT Office Visit Pulmonary Medicine, [facility] [address] [place] [address] Enrique Fernandez MD [address] [place] [address] Health Maintenance Due Date Last Done Comments DTap/Tdap Vaccines (1 - Tdap) 09/29/1954 Albumin/Creatinine Ratio 05/11/2024 05/11/2023, 07/24 Adult Wellness Visit 01/23/2025 01/24/2024 Depression Screening 05/29/2025 05/29/2024 CKD PHOS USE SMARTSET 72603 06/10/2025 06/10/2024, 0 11/10/2022 CKD HGB USE SMARTSET 10689 07/31/202507/31, 07/10/2024, 07/10/2024, Additional history exists O2 [...] purpura documented in this encounter Care Teams Guard Driver Relationship Specialty Start Date End Date Toshia Reynaga DO [address] [address] PCP - General Family Medicine 12/07/22 documented as of this encounter
--- OUTSIDE RECORDS SUMMARY | 2024-10-12 10:06 | External Medical Summary ---
Author Name Unknown Address Unknown Organization [facility] [address] [place] [address] Laboratory Report Ordering Provider Test Date Status RONAK LYNCH 09/12/2024 14:29:07 Final Observation Date Value Abnormality Reference (Units ) Status Nucleated erythrocytes/100 leukocytes [Ratio] in Blood by Automated count 09/12/2024 14:29:07 Final Acanthocytes [Presence] in Blood by Light microscopy 09/12/2024 14:29:07 Moderate Abnormal None Seen Final Ovalocytes [Presence] in Blood by Light microscopy 09/12/2024 14:29:07 Moderate Abnormal None Seen Final Schistocytes 09/12/2024 14:29:07 Few Abnormal None Seen Final Performing Location [facility] [address] [place] [address]
--- OUTSIDE RECORDS SUMMARY | 2024-10-12 10:06 | External Medical Summary | Summary of Care ---
Author Name Unknown Organization [facility] Address [address] [place] [address] Phone [phone] Care Team Providers Care Devulcanizer Operator Name Role Phone Toshia Garza DO Primary Care Provider [phone] Reason for Visit * Reason Comments Hospital Follow-Up Pt here for hospital F/U for not being able to breathe. Encounter Details Date Type Department Care Team (Late st Contact Info) Description 09/12/2024 1:40 PM EST Office Visit Family Practice [facility] [place] [address] Toshia Garza DO [address] [facility] [place] [address] COPD exacerbation (HCC)*; Chronic ITP (idiopathic thrombocytopenia) (HCC); Community acquired pneumonia of left lung, unspecified part of lung Allergies Active Allergy Reactions Criticality Noted Date Comments Lisinopril Other (Please comment) 05/06/2022 Burning in throat documented as of this encounter (statuses as of 09/12/2024) Medications Cyanocobalamin 1000 MCG Oral Tablet Take [...] as of this encounter (statuses as of 09/12/2024) Active Problems Problem Noted Date Diagnosed Date [...] as of this encounter (statuses as of 09/12/2024) Resolved Problems Problem Noted Date Diagnosed Date Resolved Date Chronic obstructive pulmonary disease 05/11/2023 06/08/2023 Overview: Per COPD GOLD Classification documented as of this encounter (statuses as of 09/12/2024) Immunizations No known immunizationsdocumented as of this [...] No 05/29/2024 Does the household have a [facility] source of income? (Household - for ages [...] Sign Reading Time Taken Comments Blood Pressure 122/50 09/12/2024 1:38 PM EST Pulse 46 09/12/2024 1:38 PM EST Temperature 36.5 C (97.7 F) 09/12/2024 1:38 PM ES T Respiratory Rate 16 09/12/2024 1:38 PM EST Oxygen Saturation 100% 09/12/2024 1:38 PM EST Inhaled Oxygen Concentration - - Weight 53.1 kg (117 lb) 09/12/2024 1:38 PM EST Height - - Body Mass Index 22.11 08/12/2024 2:34 PM EST documented in this encounter Progress Notes * Toshia Garza, DO - 09/12/2024 1:51 PM EST Subjective: Edilma Kennedy is a 88 year old female. Chief Complaint Patient presents with Hospital Follow-Up Pt here for hospital F/U for not being able to breathe. There are no exam notes on file for this visit. HPI: This is a 88 year old female with PMHx as below presents with hospital discharge Admitted 09/05 Discharge 09/06 Dx - copd exacerbation Hx of chronic ITP - plt 702 will repeat today and inform Dr. Choi Health Maintenance Due Topic Date Due DTap/Tdap Vaccines (1 - Tdap) Never done Albumin/Creatinine Ratio 05/11/2024 Patient Active Problem List Diagnosis HTN, goal [...] by mouth every 6 hours as needed. Albuterol Sulfate HFA 108 (90 Base) MCG/ACT Inhalation Aerosol Solution Inhale 2 Puffs by mouth every 4 hours as needed for Cough, Shortness of Breath or Wheezing. 54 g 3 Ferrous Sulfate 325 (65 Fe) MG Oral Tablet Delayed Release Take 1 Tablet by mouth 2 times a day with morning and evening meals. 180 Tablet 1 Eliquis 2.5 MG Oral Tablet (Apixaban) TAKE 1 TABLET IN THE MORNING AND TAKE 1 TABLET BEFORE [id number] Tablet 1 Metoprolol Succinate ER 50 MG Oral Tablet Extended Release 24 Hour (toPROL XL) TAKE 1 TABLET IN THEMORNING AND TAKE 1 TABLET BEFORE BEDTIME 180 Tablet 1 Furosemide 20 MG Oral Tablet (Lasix) TAKE 1 TABLET EVERY MORNING 90 Tablet 1 amLODIPine Besylate 5 MG Oral Tablet (Norvasc) Take 1 Tablet by mouth in the morning. 90 Tablet 1 Trelegy Ellipta 100-62.5-25 MCG/ACT Aerosol Powder Breath Activated (Qyglbhqrglo-Dctokpavpygh-Epfnidyvdn) Inhale 1 Puff by mouth in the morning. 180 Blister Dosing Unit 1 Spacer/Aero-Holding Chambers Device Use with inhaler. 1 Each 0 Albuterol Sulfate (2.5 MG/3ML) 0.083% Inhalation Nebulization Solution (Proventil) Inhale 1 Vial via nebulizer every 4 hours as needed for Wheezing. 3 mL 1 Doptelet 20 MG Oral Tablet (Avatrombopag Maleate) Take 20 mg by mouth daily except for Monday andMonday. (Patient taking differently: Take 20 mg by mouth once a day on Monday, Monday, and Monday only.) 30 Tablet 4 No current facility-administered medications for this visit. No past medical history on file. Past Surgical History: Procedure Laterality Date FACE/SCALP SUBQ TUMOR REMOVAL, 2 CM OR MORE N/A 07/28/2023 EXCISION FACE/SCALP SUBQ TUMOR, 2 CM OR MORE performed by Paula Callahan MD at OR [facility] Review of patient's allergies indicates: Allergen Reactions Lisinopril Other (Please comment) Burning in throat Family History Problem Relation Name Age of Onset COPD Mother Unknown Cancer Father Breast Cancer Sister Unknown Cancer Brother Other (after childbirth) Daughter Family Status Relation Status Mo Fa Sis Bro Bro Bro Baljit Son Alive Son Alive Social History Socioeconomic History Marital status: Spouse [...] Insecurity: No Food Insecurity (05/29/2024) Food Insecurity Worried About Running Out of Food in the Last Year: Never true Ran Out of Food in the Last Year: Never true Do you need food for this week? [...] Stability Do you currently live in a mcfp or have no steady place to sleep [...] ages0-17 years): Not on file Review of Systems: As per HPI all other ROS negative. Wt Readings from Last 3 Encounters: 09/12/24 117 lb (53.1 kg) 08/12/24 114 lb 1.6 oz (51.8 kg) 08/07/24 116 lb (52.6 kg) Results for orders placed or performed in visit on 08/01/24 CHEMISTRY-OUTSIDE Result Value Ref Range Not all results display below - see scan for full detail CREATININE 1.13 (H) 0.55 - 1.02 MG/DL EGFR 47 >60 ML/MIN.1.73M2 POTASSIUM 4.0 3.5 - 5.1 MMOL/L GLUCOSE 135 (H) 70 - 110 MG/DL HOURS FASTING TRIGLYCERIDES-OUTSIDE LAB CHOLESTEROL-OUTSIDE LAB HDL-OUTSIDE LAB CHOL/HDL RATIO-OUTSIDE LAB LDL (CALCULATED)-OUTSIDE LAB LDL (DIRECT MEASURE)-OUTSIDE LAB HEMOGLOBIN, [id number] LAB PHOSPHORUS-OUTSIDE LAB PTH-OUTSIDE LAB MICROALBUMIN RATIO-OUTSIDE LAB PROTEIN, UA-OUTSIDE LAB HGB 11.2 (L) 12.0 - 16.0 GM/DL OBJECTIVE: Physical Exam: BP 122/50 | Pulse 46 | Temp 97.7 F (36.5 C) (Tympanic) | Resp 16 | Wt 117 lb (53.1 kg) | SpO2 100% | BMI 22.11 kg/m | BSA 1.51 m General: alert, healthy, and no distress Heart: regular rate & rhythm and pos LINDA Lungs: decreased breath sounds Abdomen: abdomen soft, non-tender, normal bowel sounds, and no masses or organomegaly Extremities: no joint deformities, effusion, or inflammation, no edema COPD exacerbation (HCC) (Primary) - CBC WITH WBC DIFFERENTIAL; Future; Expected date: 09/12/2024 Chronic ITP (idiopathic thrombocytopenia) (HCC) Community acquired pneumonia of left lung, unspecified part of lung - XR CHEST 2 VIEWS Toshia Garza DO documented in this encounter Plan of Treatment Upcoming Encounters Date Type Department Care Team (Late st Contact Info) Description 10/10/2024 9:00 AM EDT Pharmacy Pharmacy Hematology Oncology [facility], [place] [address] [place] [address] [facility] Hem/Onc [address] [place] [address] 10/10/2024 11:00 AM EDT Laboratory Laboratory [facility] [place] [address] [place] [phone] [facility] [address] [place] [address] 10/17/2024 9:30 AM EDT Office Visit Hematology/Oncology [facility] [address] [place] [phone] Zeeshan Choi MD [address] [place] [address] 12/10/2024 10:00 AM EDT Office Visit Family [facility] [address] [place] [address] Toshia Garza DO [address] [place] [address] 02/10/2025 9:40 AM EDT Office Visit Family [facility] [address] [place] [address] Toshia Garza DO [address] [place] [address] 02/11/2025 1:30 PM EDT Office Visit Pulmonary Medicine, [facility] [address] [place] [address] Enrique Fernandez MD [address] [place] [address] Health Maintenance Due Date Last Done Comments DTap/Tdap Vaccines (1 - Tdap) 09/29/1954 Albumin/Creatinine Ratio 05/11/2024 05/11/2023, 07/24 Adult Wellness Visit 01/23/2025 01/24/2024 Depression Screening 05/29/2025 05/29/2024 CKD PHOS USE SMARTSET 94476 06/10/2025 06/10/2024, 0 11/10/2022 CKD HGB USE SMARTSET 43481 07/31/202509/12, 09/12/2024, 07/31/2024, Additional history exists O2 ASSESSMENT [...] Priority Date/Time Associated Diagnosis Comments XR CHEST 2 VIEWS Routine 09/12/2024 2:16 PM EST Community acquired pneumonia of left lung, unspecified part of lung documented in this encounter Results * XR CHEST 2 VIEWS (09/12/2024 2:16 PM EST) Anatomical Region Laterality Modality Chest Computed Radiogr aphy 09/12/2024 3:21 PM EST Impressions 09/12/2024 3:18 PM EST IMPRESSION No acute pulmonary abnormality seen radiographically. Narrative 09/12/2024 3:18 PM EST EXAM XR CHEST 2 VIEWS-09/12/2024 2:16 pm HISTORY follow up ? PNA COMPARISON Chest x-ray dated 11/27/2023, chest CT dated 08/16/2024 TECHNIQUE Chest x-ray two views FINDINGS The cardiac silhouette is normal in size. There are atherosclerotic calcifications of the thoracic aorta. There are no pulmonary consolidations, pleural effusions or pneumothorax. There are mild to moderate degenerative changes of the thoracic spine. Procedure Note Kimberly Corbin MD - 09/12/2024 EXAM XR CHEST 2 VIEWS-09/12/2024 2:16 pm HISTORY follow up ? PNA COMPARISON Chest x-ray dated 11/27/2023, chest CT dated 08/16/2024 TECHNIQUE Chest x-ray two views FINDINGS The cardiac silhouette is normal in size. There are atheroscleroticcalcifications of the thoracic aorta. There are no pulmonaryconsolidations, pleural effusions or pneumothorax. There are mild tomoderate degenerative changes of the thoracic spine. IMPRESSION IMPRESSION No acute pulmonary abnormality seen radiographically. 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
--- OUTSIDE RECORDS SUMMARY | 2024-10-12 10:06 | External Medical Summary ---
Author Name Unknown Address Unknown Organization [facility] [address] - [address] [place] [address] Laboratory Report Ordering Provider Test Date Status RONAK LYNCH 09/12/2024 14:29:07 Final Observation Date Value Abnormality Reference (Units ) Status SYNC LEUKOCYTES IN BLOOD BY AUTOMATED COUNT 09/12/2024 14:29:07 20.80 Above high normal 4.00-10.80 (K/uL) Final Segs 09/12/2024 14:29:07 69.9 40.0-75.0 (%) Final Lymphs % 09/12/2024 14:29:07 19.2 18.0-42.0 (%) Final Monos 09/12/2024 14:29:07 10.0 1.0-11.0 (%) Final Eosinophils 09/12/2024 14:29:07 0.7 0.0-6.0 (%) Final Basos 09/12/2024 14:29:07 0.2 0.0-2.0 (%) Final Absolute Segs 09/12/2024 14:29:07 14.53 Above high normal 1.80-7.70 (K/uL) Final Lymphs, absolute 09/12/2024 14:29:07 4.00 1.00-4.80 (K/ul) Final Monos, Abs 09/12/2024 14:29:07 2.08 Above high normal 0.00-1.10 (K/uL) Final Eos, Abs 09/12/2024 14:29:07 0.14 0.00-0.70 (K/uL) Final Basos, Abs 09/12/2024 14:29:07 0.05 0.00-0.20 (K/uL) Final Performing Location [facility] [address] 0 - [address] [place] [address]
--- OUTSIDE RECORDS SUMMARY | 2024-10-12 10:06 | External Medical Summary | Summary of Care ---
Author Name Unknown Organization [facility] Address [address] [place] [address] Phone [phone] Care Team Providers Care Barista Name Role Phone Toshia Reynaga DO Primary Care Provider [phone] Reason for Visit * Reason Comments Outpatient Testing Encounter Details Date Type Department Care Team (Late st Contact Info) Description 09/12/2024 2:20 PM EST Laboratory Laboratory, [facility] 132 [facility] [place] [address] [facility] [address] [place] [address] COPD exacerbation (HCC) Allergies Active Allergy Reactions [...] Oncology [facility] [address] [place] [address] [facility] Hem/Onc [address] [place] [address] 10/10/2024 11:00 AM EDT Laboratory Laboratory [facility] [address] [place] [phone] [facility] 200 [facility] [place] [address] 10/17/2024 9:30 AM EDT Office Visit Hematology/Oncology [facility] [address] [place] [phone] Zeeshan Choi MD [address] [place] [address] 12/10/2024 10:00 AM EDT Office Visit Family [facility] [address] [place] [address] Toshia Reynaga, [address] [place] [address] 02/10/2025 9:40 AM EDT Office Visit Family [facility] [address] [place] [address] Toshia Reynaga DO [address] [place] [address] 02/11/2025 1:30 PM EDT Office Visit Pulmonary Medicine, [facility] 132 [facility] [place] [address] Enriqeu Fernandez MD [address] [place] [address] Health Maintenance Due Date Last Done Comments DTap/Tdap Vaccines (1 - Tdap) 09/29/1954 Albumin/Creatinine Ratio 05/11/2024 05/11/2023, 07/24 Adult Wellness Visit 01/23/2025 01/24/2024 Depression Screening 05/29/2025 05/29/2024 CKD PHOS USE SMARTSET 17798 06/10/2025 06/10/2024, 0 11/10/2022 CKD HGB USE SMARTSET 35310 07/31/202509/12, 09/12/2024, 07/31/2024, Additional history exists O2 [...] Date/Time Associated Diagnosis Comments DIFFERENTIAL, AUTOMATED Routine 09/12/2024 2:29 PM EST COPD exacerbation (HCC) CBC Routine 09/12/2024 2:29 PM EST COPD exacerbation (HCC) CBC Routine 09/12/2024 2:29 PM EST COPD exacerbation (HCC) DIFFERENTIAL, TECHNOLOGIST REVIEW Routine 09/12/2024 2:29 PM EST COPD exacerbation (HCC) documented in this encounter Results * (ABNORMAL) DIFFERENTIAL, TECHNOLOGIST REVIEW (09/12/2024 2:29 PM EST) nRBCs 09/12/2024 4:57 PM EST [facility] Acanthocytes Moderate(A ) None Seen 09/12/2024 4:57 PM EST [facility] Ovalocytes Moderate(A ) None Seen 09/12/2024 4:57 PM EST [facility] Schistocytes Few(A) None Seen 09/12/2024 4:57 PM EST [facility] Blood Venous blood specimen / Unknown Venipuncture / Unknown 09/12/2024 2:29 PM EST 09/12/2024 2:29 PM EST us Toshia Reynaga DO LAB BLOOD ORDERABLES Final Result [facility] [place] [address] * (ABNORMAL) DIFFERENTIAL, AUTOMATED (09/12/2024 2:29 PM EST) WBC 20.80(H) 4.00 - 10.80 K/uL 09/12/2024 4:57 PM EST [facility] Neutrophils % 69.9 40.0 - 75.0 % 09/12/2024 4:57 PM EST [facility] Lymphocytes % 19.2 18.0 - 42.0 % 09/12/2024 4:57 PM EST [facility] Monocytes % 10.0 1.0 - 11.0 % 09/12/2024 4:57 PM EST [facility] Eosinophils % 0.7 0.0 - 6.0 % 09/12/2024 4:57 PM EST [facility] Basophils % 0.2 0.0 - 2.0 % 09/12/2024 4:57 PM EST [facility] Absolute Neutrophils 14.53(H) 1.80 - 7.70 K/uL 09/12/2024 4:57 PM EST [facility] Absolute Lymphocytes 4.00 1.00 - 4.80 K/ul 09/12/2024 4:57 PM EST [facility] Absolute Monocytes 2.08(H) 0.00 - 1.10 K/uL 09/12/2024 4:57 PM EST [facility] Absolute Eosinophils 0.14 0.00 - 0.70 K/uL 09/12/2024 4:57 PM EST [facility] Absolute Basophils 0.05 0.00 - 0.20 K/uL 09/12/2024 4:57 PM EST [facility] Blood Venous blood specimen / Unknown Venipuncture / Unknown 09/12/2024 2:29 PM EST 09/12/2024 2:29 PM EST us Toshia Reynaga DO LAB BLOOD ORDERABLES Final Result [facility] [address] [place] [address] * (ABNORMAL) CBC (09/12/2024 2:29 PM EST) WBC 20.80(H) 4.00 - 10.80 K/uL 09/12/2024 4:57 PM EST [facility] [facility]10 RBC 3.89 3.85 - 5.15 M/uL 09/12/2024 4:57 PM EST [facility] [facility]10 HGB 11.7(L) 12.0 - 15.3 g/dL 09/12/2024 4:57 PM EST [facility] 57[facility]10 HCT 36.5 36.0 - 45.2 % 09/12/2024 4:57 PM EST [facility] [facility]10 MCV 93.8 81.5 - 97.5 fL 09/12/2024 4:57 PM EST [facility]10 MCH 30.1 27.0 - 34.0 pg 09/12/2024 4:57 PM EST [facility] [facility]10 MCHC 32.1 32.0 - 36.0 g/dL 09/12/2024 4:57 PM EST [facility] [facility]10 RDW 13.7 11.5 - 15.5 % 09/12/2024 4:57 PM EST [facility] [facility]10 PLT 705(H) 140 - 400 K/uL 09/12/2024 4:57 PM EST [facility] [facility]10 MPV 11.4 6.6 - 11.1 fL 09/12/2024 4:57 PM EST [facility] [facility]10 Blood Venous blood specimen / Unknown Venipuncture / Unknown 09/12/2024 2:29 PM EST 09/12/2024 2:29 PM EST Toshia Reynaga DO LAB BLOOD ORDERABLES Final Result [facility] [place] [address] [place] [address] documented in this encounter Visit Diagnoses Diagnosis COPD exacerbation (HCC) Obstructive chronic bronchitis with exacerbation documented in this encounter Care Teams Barista Relationship Specialty Start Date End Date Toshia Reynaga DO [address] [place] [address] PCP - General Family Medicine 12/07/22 documented as of this encounter
--- OUTSIDE RECORDS SUMMARY | 2024-10-12 10:06 | External Medical Summary ---
Author Name Unknown Address Unknown Organization [facility] [address] [place] [address] Laboratory Report Ordering Provider Test Date Status RONAK LYNCH 09/12/2024 14:29:07 Final Observation Date Value Abnormality Reference (Units ) Status WBC, Total 09/12/2024 14:29:07 20.80 Above high normal 4 .00-10.80 (K/uL) Final RBC 09/12/2024 14:29:07 3.89 3.85-5.15 (M/uL) Final Hemoglobin 09/12/2024 14:29:07 11.7 Below low normal 12 .0-15.3 (g/dL) Final HCT 09/12/2024 14:29:07 36.5 36.0-45.2 (%) Final MCV 09/12/2024 14:29:07 93.8 81.5-97.5 (fL) Final MCH 09/12/2024 14:29:07 30.1 27.0-34.0 (pg) Final MCHC 09/12/2024 14:29:07 32.1 32.0-36.0 (g/dL) Final RDW 09/12/2024 14:29:07 13.7 11.5-15.5 (%) Final Platelets 09/12/2024 14:29:07 705 Above high normal 14 0-400 (K/uL) Final MPV 09/12/2024 14:29:07 11.4 6.6-11.1 ( fL) Final Performing Location [facility] 57[address] 0 - [address] [place] [address]
--- OUTSIDE RECORDS SUMMARY | 2024-10-12 10:06 | External Medical Summary | Summary of Care ---
Author Name Unknown Organization [facility] Address [address] [place] [address] Phone [phone] Care Team Providers Care Financial Administration Officer Name Role Phone Toshia Reynaga DO Primary Care Provider [phone] Reason for Visit * Reason Onset Date Comments Advice 09/24/2024 Encounter Details Date Type Department Care Team (Late st Contact Info) Description 09/24/2024 Telephone Family Practice [facility] [address] [facility] [address] Toshia Reynaga DO [address] [facility] [place] [id number] Advice Allergies Active Allergy Reactions Criticality Noted Date Comments Lisinopril Other (Please comment) 05/06/2022 Burning in throat documented as of this encounter (statuses as of 09/25/2024) Medications Cyanocobalamin 1000 MCG Oral Tablet Take [...] meals. 180 Tablet 1 02/22/20 24 Active Doptelet 20 MG Oral Tablet (Avatrombopag Maleate) Take 20 mg by mouth daily except for Monday and Monday. 30 Tablet 4 07/12/2024 11:04 AM EST 04/22/20 24 Active Additional Information Patient taking differently:20 mg [...] morning. 90 Tablet 1 08/29/19 25 Active Trelegy Ellipta 100-62.5-25 MCG/ACT Aerosol Powder Breath Activated (Fluticasone-Ume clidinium-Vilant thalia) Inhale 1 Puff by mouth in the morning. 180 Blister Dosing Unit 1 09/01/19 25 Active Apixaban 2.5 MG Oral Tablet (Eliquis) Take 1 Tablet by mouth in the morning and 1 Tablet before bedtime. 14 Tablet 09/26/19 25 Active Eliquis 2.5 MG Oral Tablet (Apixaban) TAKE 1 TABLET IN THE MORNING AND TAKE 1 TABLET BEFORE BEDTIME 180 Tablet 1 05/14/20 24 025 Discontin ued(Refil l) documented as of this encounter (statuses as of 09/25/2024) Active Problems Problem Noted Date Diagnosed Date [...] as of this encounter (statuses as of 09/25/2024) Resolved Problems Problem Noted Date Diagnosed Date Resolved Date Chronic obstructive pulmonary disease 05/11/2023 06/08/2023 Overview: Per COPD GOLD Classification documented as of this encounter (statuses as of 09/25/2024) Immunizations No known immunizationsdocumented as of this [...] No 05/29/2024 Does the household have a [facility] source of income? (Household - for ages [...] Telephone Encounter - Nichole Kim LPN - 09/24/2024 4:27 PM EST Has not gotten Eloquis from mail order pharmacy yet. Can you send short supply to local pharmacy. Thanks * Telephone Encounter - Leonel Ramirez OSA - 09/24/2024 4:09 PM EST Margarette ([employer] RN) called in requesting if the pt could have Samples of Eloquis. Stated that the pt takes 2.5mg Twice a day. Pt only has 3 days left. Original Refill of medication was sent today 09/24/24, but it is through the mail and it could take 5-7 business days before she receive it. Please call pt today 09/24/24. documented in this encounter Plan of Treatment Upcoming Encounters Date Type Department Care Team (Late st Contact Info) Description 10/10/2024 9:00 AM EDT Pharmacy Pharmacy Hematology Oncology [place] [address] [place] [address] [facility] [place] Hem/Onc [address] [place] [address] 10/10/2024 11:00 AM EDT Laboratory Laboratory [facility] [address] [place] [phone] [place], Lab [facility] [address] [place] [address] 10/17/2024 9:30 AM EDT Office Visit Hematology/Oncology [facility] [place] [address] [place] [phone] Zeeshan Choi MD [address] [place] [address] 12/10/2024 10:00 AM EDT Office Visit Family [facility] [address] [place] [address] Toshia Reynaga DO [address] [place] [address] 02/10/2025 9:40 AM EDT Office Visit Family Practice [facility] [address] [place] [address] Toshia Reynaga DO [address] [place] [address] Health Maintenance Due Date Last Done Comments DTap/Tdap Vaccines (1 - Tdap) 09/29/1954 Albumin/Creatinine Ratio 05/11/2024 05/11/2023, 07/24 Adult Wellness Visit 01/23/2025 01/24/2024 Depression Screening 05/29/2025 05/29/2024 CKD PHOS USE SMARTSET 70943 06/10/2025 06/10/2024, 0 11/10/2022 CKD HGB USE SMARTSET 69943 09/12/202509/12, 09/12/2024, 07/31/2024, Additional history exists O2 [...] filedocumented as of this encounter Care Teams Financial Administration Officer Relationship Specialty Start Date End Date Toshia Reynaga DO [address] [place] [address] PCP - General Family Medicine 12/07/22 documented as of this encounter
--- NOTE | 2024-10-12 10:53 | Emergency Department Note ---
Impression & Plan Acute GI bleeding, Acute ITP, Thrombocytopenia ED Provider Note HISTORY OF PRESENT ILLNESS: Patient is an 89-year-old female presenting with bright red bloody bowel movement. Patient reports that she got up this morning and had a bowel movement and it was a dark bloody diarrhea. She states that she had a small episode of this yesterday. States that this morning she felt very lightheaded and dizzy. She states that she felt very weak and shaky. She is on Eliquis 2.5 mg twice daily. Denies any abdominal pain. She does report she been slightly constipated over the last week and has been straining to have bowel movements. She denies any chest pain or shortness of breath. Denies any fevers. Patient reports that she has been off of her medication that helps her platelet count which is normally low. She states that she has been off of this for the last week as she ran out of her prescription and it did not get delivered to her house until yesterday. She did take her dose yesterday. ROS: as above PHYSICAL EXAM: Constitutional: Patient appears in no acute distress. HENT: Head: Normocephalic and atraumatic. Eyes: EOMI, PERRL Mouth/Throat: Mucous membranes moist. Neck: Trachea midline. Neck supple. Cardiovascular: RRR, No murmurs, rubs or gallops. Intact distal pulses. Pulmonary/Chest: No respiratory distress. Breath sounds clear and equal bilaterally. No wheezes or rales. Abdominal: Abdomen soft, no tenderness, rebound or guarding. Rectal: Chaperoned by nursing staff. No palpable masses or hemorrhoids. No anal fissure appreciated. Patient does have alfred melena and dark red blood on exam. Musculoskeletal: No edema, tenderness or deformity noted. Skin: Warm and dry. No rash, erythema, pallor or cyanosis Psychiatric: Appropriate mood and affect for situation. Neurological: Alert and keenly responsive. CN II-XII grossly intact, moving all extremities equally and fully. MDM: - Vitals signs stable. - History obtained via patient. History as above. - Chronic conditions affecting care: ITP; Afib (on Eliquis); CHF; COPD - Differential diagnoses include, but are not limited to: Upper GI bleed; diverticular bleed; hemorrhoid; coagulopathy - Order placed for continuous cardiac monitoring. At this time, monitor showed rate of 63 bpm with normal sinus rhythm, per my interpretation. - External medical records reviewed. Discharge summary dated 09/06/2024 was reviewed. Patient was admitted that time for COPD exacerbation. - EKG image interpreted by myself showed normal sinus rhythm. Rate 63 bpm. QT 424. No acute ischemic changes. - Laboratory workup interpreted by myself showed normal WBC; anemia (Hgb 8.3 - down from 9.5 last month); thrombocytopenia (plt 14); normal PT/INR; elevated BUN (33); normal lipase; normal AST/ALT - Type and screen ordered - 80 mg IV protonix ordered. - Discussed results with the patient and plan for admission. - Discussion was had with pillowcase maker about patient's case and need for admission - Hospitalist, Dr. Grant, consulted for admission. Requested that heme-onc be consulted to inquire about IVIG dosing given the patient's thrombocytopenia. - Discussed case with heme/onc, Dr. Choi, at 12:38. He recommended patient continue Avatromobopag and agree about giving IVIG one dose 1g/kg. - Patient admitted to [facility] service for further evaluation and management. I have personally spent 32 minutes of critical care time in the direct management of this patient. This includes bedside care, interpretation of diagnostic studies, and testing, discussion with consultants, patient, and family members, and other required patient management activities. This 32 minutes is in excess of all separately billable procedures. ASSESSMENT AND PLAN: Diagnosis: Acute GI bleeding; thrombocytopenia; acute ITP Plan: Admit Past Med/Surg History Problem List (Updated 10/12/24 @ 12:39 by Monica Rebollar MD) Thrombocytopenia (Acute) Acute ITP (Acute) Acute GI bleeding (Acute) Acute exacerbation of chronic obstructive pulmonary disease (COPD) (Acute) COPD exacerbation Pneumonia (Acute) SOB (shortness of breath) (Acute) Chronic hypoxic respiratory failure, on home oxygen therapy Acute on chronic diastolic HF (heart failure) SOB (shortness of breath) Hypokalemia (Acute) Hypomagnesemia (Acute) Congestive heart failure (Acute) Anemia (Acute) Hypoxemia (Acute) Atrial fibrillation with rapid ventricular response (Acute) Acute idiopathic thrombocytopenic purpura (Acute) Thrombocytopenia (Acute) Gingival bleeding (Acute) Petechiae (Acute) Social History Smoking Status: Unknown if ever smoked Hx Alcohol Use: No Hx Substance Use: No Preferred Language: Indian Communication Ability: Effective Waste [employer] Operator Required: No Beliefs That Will Affect Care: None Current Living Situation: Family Current Living Situation Comment: Lives with son Feels Safe at Home: Yes Assistive Devices: Oxygen - Continuous and Walker Allergies Allergies Allergy/AdvReac Type Severity Reaction Status Date / Time lisinopril AdvReac Intermediate Gastrointestinal Verified 12/05/23 23:46 Upset Home Meds Home Medications Medication Instructions Recorded Confirmed albuterol sulfate 2.5 mg/3 mL 2.5 mg continuous nebulization Q4H 09/05/24 09/05/24 (0.083 %) solution for nebulization PRN Shortness Of Breath Or Wheezing albuterol sulfate 90 mcg/actuation 2 puff inhalation Q4H PRN 09/05/24 09/05/24 aerosol inhaler Shortness Of Breath Or Wheezing amlodipine 5 mg tablet 5 mg PO DAILY 09/05/24 09/05/24 apixaban 2.5 mg tablet (Eliquis) 2.5 mg PO BID 09/05/24 09/05/24 avatrombopag 20 mg tablet 20 mg PO UD 09/05/24 09/05/24 (Doptelet (10 tab pack)) ferrous sulfate 325 mg (65 mg 325 mg PO BID 09/05/24 09/05/24 iron) tablet,delayed release fluticasone fur. 100 mcg-umeclid 1 inh inhalation DAILY 09/05/24 09/05/24 62.5 mcg-vilant 25 mcg inhalat.powder (Trelegy Ellipta) furosemide 20 mg tablet 20 mg PO DAILY 09/05/24 09/05/24 metoprolol succinate 50 mg 50 mg PO BID 09/05/24 09/05/24 tablet,extended release 24 hr polyethylene glycol 3350 17 17 g PO DAILY 09/05/24 09/05/24 gram/dose oral powder Results & Data (ED) Vital Signs Vital Signs - 24 hr 10/12/24 09:48 10/12/24 10:48 Temperature 36.3 C L Temperature Source Oral Pulse Rate 63 Respiratory Rate 20 Blood Pressure 132/70 Blood Pressure Mean 90 Pulse Oximetry 96 Oxygen Delivery Method Room Air Sepsis Recent Fever Within 48 Hours No Sepsis New/Unexplained Change in Mental Status No Sepsis Action Taken by Nursing No Action Required Laboratory Data 10/12/24 10:50 10/12/24 10:50 Lab Results 10/12/24 10/12/24 10/12/24 Range/Units 10:48 10:50 10:55 WBC 7.91 (4.8-10.8) K/ul RBC 2.73 L (4.20-5.40) M/uL Hgb 8.3 L (12.0-16.0) g/dl Hct 25.5 L (37.0-47.0) % MCV 93.4 (80.0-100.0) fL MCH 30.4 (25.0-34.0) pg MCHC 32.5 (32.0-36.0) g/dL RDW Std Deviation 48.8 H (36.4-46.3) fL RDW Coeff of Dwaine 14.2 (11.5-14.5) % Plt Count 14 L* (130-400) K/uL Immature Gran % (Auto) 0.8 % Neut % (Auto) 77.4 % Lymph % (Auto) 14.8 % [place] % (Auto) 5.9 % Eos % (Auto) 0.6 % Baso % (Auto) 0.5 % Neut # (Auto) 6.12 (1.40-6.50) K/uL Lymph # (Auto) 1.17 L (1.20-3.40) K/uL [place] # (Auto) 0.47 (0.11-0.59) K/uL Eos # (Auto) 0.05 (0.00-0.50) K/uL Baso # (Auto) 0.04 (0.00-0.20) K/uL Immature Gran # (Auto) 0.06 (0.01-0.20) K/uL Platelet Estimate Signific. Decreased L (Normal) PT 12.0 (9.0-12.0) Seconds INR 1.1 (0.9-1.1) Sodium 145 (136-145) mmol/L Potassium 3.9 (3.5-5.1) mmol/L Chloride 112 H (98-107) mmol/L Carbon Dioxide 31 (21-32) mmol/L Anion Gap 2 L (3-11) BUN 33 H (6-23) mg/dl Creatinine 1.09 (0.6-1.2) mg/dl Est Cr Clr Drug Dosing 26.4 ml/min eGFR 48.56 BUN/Creatinine Ratio 30.3 H (10-20) Glucose 104 H (70-99(Fasting)) mg/dl Calcium 8.7 (8.6-10.3) mg/dl Total Bilirubin 1.2 H (0.2-1.0) mg/dl AST 15 (13-39) U/L ALT 8 (7-52) U/L Alkaline Phosphatase 32 L (34-104) U/L Troponin I High Sens 9.6 (0-14) pg/ml Total Protein 5.5 L (6.0-8.3) gm/dl Albumin 3.5 (3.4-5.0) gm/dl Globulin 2.0 L (2.5-4.0) gm/dl Albumin/Globulin Ratio 1.8 (0.9-2) Lipase 26 (11-82) U/L POC Stool Occult Blood Positive A (Negative) Blood Type A Positive Antibody Screen NEGATIVE Administered Medications Discontinued Medications Pantoprazole Sodium 80 mg/ (Dextrose) 120 mls @ 480 mls/hr IV ONE STA Stop: 10/12/24 11:54 Last Admin: 10/12/24 12:12 Dose: 480 mls/hr Documented By: HANNAH Discharge Plan Visit Data Chief Complaint: GI Assessment Stated Complaint: GI ASSESSMENT ED Provider: Monica Rebollar Discharge Problem: Acute GI bleeding, Acute ITP, Thrombocytopenia Forms Stand Alone Forms: My [facility] Prescriptions Prescriptions: No Action metoprolol succinate 50 mg tablet extended release 24 hr 50 mg PO BID amlodipine 5 mg tablet 5 mg PO DAILY furosemide 20 mg tablet 20 mg PO DAILY Eliquis 2.5 mg tablet 2.5 mg PO BID Trelegy Ellipta 100-62.5-25 mcg blister with device 1 inh INHALATION DAILY Doptelet (10 tab pack) 20 mg tablet 20 mg PO UD Rx Instructions: 20mg po daily except Monday and Monday albuterol sulfate 2.5 mg /3 mL (0.083 %) solution for nebulization 2.5 mg continuous nebulization Q4H PRN (Reason: Shortness Of Breath Or Wheezing) polyethylene glycol 3350 17 gram/dose powder 17 g PO DAILY albuterol sulfate 90 mcg/actuation HFA aerosol inhaler 2 puff INHALATION Q4H PRN (Reason: Shortness Of Breath Or Wheezing) ferrous sulfate 325 mg (65 mg iron) tablet,delayed release (DR/EC) 325 mg PO BID Referrals Referrals: Toshia Reynaga DO [Primary Care Provider] -
[2024-10-12 11:38] LABS: Albumin Globulin Ratio 1.8 (0.9-2); Albumin Level 3.5 gm/dl (3.4-5.0); BUN Creatinine Ratio 30.3 (10-20); Bilirubin,Total 1.2 mg/dl (0.2-1.0); Calcium 8.7 mg/dl (8.6-10.3); Creatinine Clr Calc Pharmacy 26.4 ml/min; Potassium 3.9 mmol/L (3.5-5.1); Total Protein 5.5 gm/dl (6.0-8.3)
[2024-10-12 11:41] LABS: Hematocrit (blood only) 25.5 % (37.0-47.0); Hemoglobin 8.3 g/dl (12.0-16.0); Mean Corpuscular Hemoglobin 30.4 pg (25.0-34.0); Mean Corpuscular Hgb Conc 32.5 g/dL (32.0-36.0); Mean Corpuscular Volume 93.4 fL (80.0-100.0); RDW Coefficient of Variation 14.2 % (11.5-14.5); RDW Standard Deviation 48.8 fL (36.4-46.3); Red Blood Count 2.73 M/uL (4.20-5.40); White Blood Count 7.91 K/ul (4.8-10.8)
[2024-10-12 11:42] LABS: Platelet Count 14 K/uL (130-400)
[2024-10-12 11:44] LABS: Basophils # (auto) 0.04 K/uL (0.00-0.20); Basophils % (auto) 0.5 %; Eosinophils # (auto) 0.05 K/uL (0.00-0.50); Eosinophils % (auto) 0.6 %; INR 1.1 (0.9-1.1); Immature Granulocytes # (auto) 0.06 K/uL (0.01-0.20); Immature Granulocytes % (auto) 0.8 %; Lymphocytes # (auto) 1.17 K/uL (1.20-3.40); Lymphocytes % (auto) 14.8 %; Monocytes # (auto) 0.47 K/uL (0.11-0.59); Monocytes % (auto) 5.9 %; Neutrophils # (auto) 6.12 K/uL (1.40-6.50); Neutrophils % (auto) 77.4 %; Platelet Estimate Signific. Decreased (Normal)
[2024-10-12 11:45] LABS: Troponin I High Sensitivity 9.6 pg/ml (0-14)
[2024-10-12] MEDS: PANTOprazole 80 MG in DEXTROSE 5% 100 ML IV STA (12:12)
[2024-10-12] MEDS ORDERED: IMMUNE GLOBULIN (HUMAN) SOLN IV ONE (12:26)
[2024-10-12] MEDS ORDERED: dexAMETHasone**PF** 10 MG/ML VIAL IV ONE (12:26)
--- NOTE | 2024-10-12 12:34 | History & Physical Report ---
Date of Service October 12, 2024 Assessment & Plan (1) Thrombocytopenia: (2) Acute ITP: (3) Chronic hypoxic respiratory failure, on home oxygen therapy: (4) Paroxysmal atrial fibrillation: Plan Ms. Kennedy is an 88-year-old female with past medical history significant for chronic respiratory failure with hypoxia currently on home oxygen 3 L, COPD, moderate pulmonary hypertension, hypertension constipation, protein-calorie malnutrition, CKD stage III , chronic ITP, prior nonmelanoma skin cancer , atrial fibrillation who is admitted for acute on chronic ITP. #Severe thrombocytopenia, suspect acute on Chronic ITP #Hematochezia neurologically intact, missed medication due to insurance/pharmacy similar presentation 2021 Start IV decadron 40mg daily s/p IVIG 1g/1kg per Heme Continue home Doptelet PPI IV BID with CLD consider GI consult, however suspect constipation and missing medication for ITP resulted in mucosal tearing and the resultant hematochezia Follows Dr. Zeeshan Choi, who is consulted at this time Hold SCDs and eliquis 2/2 thrombocytopenia Monitor on tele #COPD #nocturnal hypoxia 2L at bedtime continue o2 at bedtime copd stable, continue home nebs #Abnormal UA no active symptoms however, given possible precipitant in thrombocytopenia, will opt for 3 day management with plan to discontinue contingent on culture #Paroxysmal A-fib Continue metoprolol 50mg BID On Eliquis for anticoagulation, held iso thrombocytopenia, will likely be able to resume once platelets stabilze Replace electrolytes as needed #Chronic GABRIELA anemia Baseline hemoglobin around 7-9 Monitor CBC q12 for 24 hours, increase or reduce frequency as warranted FOBT + iso thrombocytopenia and reported hematochezia CLD PPI IV BID as above Transfuse < 7.0 or symptomatic recent Iron transfusion in past: anemia labs for optimization Denies any bleeding issues currently on daily iron supplement at this time #Hypertension Continue metoprolol Monitor #Constipation ensure bowel regimen, consider scheduled at home given iron supplement #CKD stage III Cr at baseline Monitor renal function DVT contraindicated iso severe thrombocytopenia Admission and Anticipated Discharge Date Admission Date: Time spent evaluating patient, direct bedside care, chart review, placing orders, interpretation of diagnostic studies, discussion with consultants, patient, and family members, as well as other required patient management activities is 80 minutes. History of Present Illness Chief Complaint: Hematochezia Primary Care Provider: Toshia Reynaga DO Ms. Kennedy is an 88-year-old female with past medical history significant for chronic respiratory failure with hypoxia currently on home oxygen 3 L, COPD, moderate pulmonary hypertension, hypertension constipation, protein-calorie malnutrition, CKD stage III , chronic ITP, prior nonmelanoma skin cancer, atrial fibrillation presented to [facility] ED due to bright red blood per rectum. Patient states that she has been in her usual state of health; however, noted that she had been constipated. Yesterday, when trying to go to the bathroom, she was passing "little hillary" and noted blood dripping into the toilet. She states she tried Mirlax, but her bowels were still so firm. She does note that she has not had her Doptelet in over a week due to insurance issues and specialty pharmacy issues. She was able to get the medication yesterday and took a dose in the evening She denies gingival bleeding, any new rashes, hemoptysis, hematuria, hematemesis or melena. She denies abdominal pain, chest pain, confusion/headache. She does report some epistaxis with her night time oxygen. She also reports a few bruises on her arms, remarking she "bruises easy" In the ED, vitals were notable for BP of 130-160s, HR of 60s, and O2 sat of high 90s on room air. Imaging revealed questionable left lung pneumonitis/aspiration (no corresponding concerns) EKG QtC 433, Consultants: Heme: Dr. Choi, starting 1g/kg IVIG Patient to be admitted to med/tele for further evaluation and management of acute on chronic ITP Allergies Allergy/AdvReac Type Severity Reaction Status Date / Time lisinopril AdvReac Intermediate Gastrointestinal Verified 12/05/23 23:46 Upset Home Medications Medication Instructions Recorded Confirmed Type amlodipine 5 mg tablet 5 mg PO DAILY 09/05/24 10/12/24 History apixaban 2.5 mg tablet (Eliquis) 2.5 mg PO BID 09/05/24 10/12/24 History avatrombopag 20 mg tablet 20 mg PO UD 09/05/24 10/12/24 History (Doptelet (10 tab pack)) ferrous sulfate 325 mg (65 mg 325 mg PO DAILY 09/05/24 10/12/24 History iron) tablet,delayed release fluticasone fur. 100 mcg-umeclid 1 inh inhalation DAILY 09/05/24 10/12/24 History 62.5 mcg-vilant 25 mcg inhalat.powder (Trelegy Ellipta) furosemide 20 mg tablet 20 mg PO DAILY 09/05/24 10/12/24 History metoprolol succinate 50 mg 50 mg PO BID 09/05/24 10/12/24 History tablet,extended release 24 hr polyethylene glycol 3350 17 17 g PO DAILY PRN Constipation 09/05/24 10/12/24 History gram/dose oral powder Past Med/Surg History Problem List (Updated 10/12/24 @ 15:49 by Alison Grant MD) Paroxysmal atrial fibrillation Thrombocytopenia (Acute) Acute ITP (Acute) Acute GI bleeding (Acute) Chronic hypoxic respiratory failure, on home oxygen therapy Anemia (Acute) Thrombocytopenia (Acute) Medical History (Updated 10/12/24 @ 15:49 by Alison Grant MD) Acute exacerbation of chronic obstructive pulmonary disease (COPD) COPD exacerbation Pneumonia SOB (shortness of breath) Acute on chronic diastolic HF (heart failure) SOB (shortness of breath) Hypokalemia Hypomagnesemia Congestive heart failure Hypoxemia Atrial fibrillation with rapid ventricular response Petechiae Gingival bleeding Acute idiopathic thrombocytopenic purpura Social History (Updated 10/12/24 @ 12:52 by Rebecca Rome PA-C) Smoking Status: Unknown if ever smoked Hx Alcohol Use: No Hx Substance Use: No Preferred Language: Gambian Communication Ability: Effective Breakdown [employer] Operator Required: No Beliefs That Will Affect Care: None Current Living Situation: Family Current Living Situation Comment: Lives with son Feels Safe at Home: Yes Assistive Devices: Oxygen - at Night and Walker Review of Systems Review of Systems: Constitutional: (-) fever/chills, (-) recent loss of weight, (-) appetite changes, (-) night sweats. Head: (-) headache, (-) dizziness. Eye: (-) blurring of vision, (-) double vision, (-) redness. Ear: (-) hearing loss, (-) discharge, (-) vertigo Nose: (-) discharge, (-) bleeding, (-) congestion, (-) post nasal drip. Throat: (-) sore throat, (-) hoarseness of voice, (-) odynophagia. Cardiovascular: (-) chest pain, (-) palpitations, (-) syncope, (-) orthopnea, (- ) PND, (-) leg swelling. Respiratory: (-) shortness of breath, (-) cough, (-) wheezing, (-) hemoptysis. Neuro: (-) weakness in extremities, (-) numbness, (-) tingling, (-) tremor. Gastrointestinal: (-) belly pain, (-) belly distension, (-) nausea, (-) vomiting, (-) diarrhea, (+) constipation, (-) hematemesis, (+) hematochezia, (-) bowel incontinence Genitourinary: (-) hematuria, (-) dysuria, (-) polyuria, (-) hesitancy, (-) frequency, (-) urinary incontinence. Musculoskeletal: (-) myalgia, (-) arthralgia. Skin: (-) rashes. Endocrine: (-) heat/cold intolerance. Psychiatry: (-) depression, (-) hallucination. Physical Exam Physical Exam: GENERAL APPEARANCE: AxOx4, generally well-appearing elderly woman, no acute distress. HEENT: NC, AT. MMM. EOMI, clear conjunctiva, oropharynx clear. poorly fitted dentures NECK: Supple without lymphadenopathy. No stiffness or restricted ROM. HEART: Normal rate and regular rhythm, normal S1/S1, no m/r/g LUNGS: CTAB, moving air well. No crackles or wheezes are heard. ABDOMEN: Soft, nontender, nondistended with good bowel sounds heard. BACK: No CVAT, no obvious deformity. EXTREMITIES: Without cyanosis, clubbing or edema. no petechiae NEUROLOGICAL: Grossly nonfocal. Alert and oriented, moving all 4 extremities. CN not formally tested but appear grossly intact. Skin: Warm and dry without any rash. Results & Data Results & Data Vital Signs (Past 12 Hours) Vital Signs Temp Pulse Resp BP Pulse Ox O2 Del Method 10/12/24 10:48 Room Air 10/12/24 09:48 36.3 C L 63 20 132/70 96 Laboratory Results Short CBC 10/12/24 Range/Units 10:50 WBC 7.91 (4.8-10.8) K/ul Hgb 8.3 L (12.0-16.0) g/dl Hct 25.5 L (37.0-47.0) % Plt Count 14 L* (130-400) K/uL BMP 10/12/24 10:50 Sodium 145 Potassium 3.9 Chloride 112 H Carbon Dioxide 31 BUN 33 H Creatinine 1.09 Glucose 104 H Calcium 8.7 Liver Function 10/12/24 Range/Units 10:50 Total Bilirubin 1.2 H (0.2-1.0) mg/dl AST 15 (13-39) U/L ALT 8 (7-52) U/L Alkaline Phosphatase 32 L (34-104) U/L Albumin 3.5 (3.4-5.0) gm/dl Urine 10/12/24 Range/Units 13:10 Urine Color Yellow Urine Appearance Clear (Clear) Urine pH 7.5 (4.5-7.5) Ur Specific [place] 1.015 (1.000-1.030) Urine Protein Negative (Negative) Urine Glucose (UA) Negative (Negative) Medications Administered Home Medications Medication Instructions Recorded Confirmed Last Taken amlodipine 5 mg tablet 5 mg PO DAILY 09/05/24 10/12/24 10/11/24 apixaban 2.5 mg tablet (Eliquis) 2.5 mg PO BID 09/05/24 10/12/24 10/11/24 avatrombopag 20 mg tablet 20 mg PO UD 09/05/24 10/12/24 10/11/24 (Doptelet (10 tab pack)) ferrous sulfate 325 mg (65 mg 325 mg PO DAILY 09/05/24 10/12/24 10/11/24 iron) tablet,delayed release fluticasone fur. 100 mcg-umeclid 1 inh inhalation DAILY 09/05/24 10/12/24 10/11/24 62.5 mcg-vilant 25 mcg inhalat.powder (Trelegy Ellipta) furosemide 20 mg tablet 20 mg PO DAILY 09/05/24 10/12/24 10/11/24 metoprolol succinate 50 mg 50 mg PO BID 09/05/24 10/12/24 10/11/24 tablet,extended release 24 hr polyethylene glycol 3350 17 17 g PO DAILY PRN Constipation 09/05/24 10/12/24 Unknown gram/dose oral powder Active Medications Generic Name Dose Route Start Last Admin Trade Name Freq PRN Reason Stop Dose Admin Immune Globulin 200 mls @ 33.66 mls/hr 10/12/24 14:00 10/12/24 15:30 Octagam 10% IV 10/12/24 23:57 5.94 mg/kg/min 1400,1600,1800 DEEPTHI 200 mls/hr Titration Protocol 1 MG/KG/MIN
--- NOTE | 2024-10-12 12:48 | Electrocardiogram Report ---
Test Reason : Blood Pressure : */* mmHG Vent. Rate : 63 BPM Atrial Rate : 63 BPM P-R Int : 192 ms QRS Dur : 84 ms QT Int : 424 ms P-R-T Axes : 68 50 64 degrees QTcB Int : 433 ms Normal sinus rhythm Low voltage QRS Borderline ECG When compared with ECG of 05-Sep-2024 16:05, No significant change Confirmed by Navi Saenz ([id number]) on 10/12/2024 12:47:56 PM Referred By: REFERRED SELF Confirmed By: Navi Saenz
[2024-10-12] MEDS: Octagam 10% IVIG 20 gram bottle IV SCH (13:55)
[2024-10-12 14:05] LABS: Appearance Urine Clear (Clear); Bacteria Urine Automated 4+ (None Seen); Bilirubin Urine Negative (Negative); Blood Urine 1+ (Negative); Cast Urine Automated 0-2 /lpf (0-2); Color Urine Yellow; Epithelial Cell Urine Auto 0-2 /hpf (0-2); Glucose Urine UA Negative (Negative); Ketones Urine Negative (Negative); Leukocyte Esterase Urine 1+ (Negative); Nitrite Urine Negative (Negative); Protein Urine Negative (Negative); RBC Urine Automated 0-2 /hpf (0-2); Specific Gravity Urine 1.015 (1.000-1.030); Urobilinogen Urine Negative (Negative); pH Urine 7.5 (4.5-7.5)
[2024-10-12] MEDS ORDERED: ACETAMINOPHEN 325 MG TAB PO PRN (15:02)
[2024-10-12] MEDS ORDERED: POLYETHYLENE (MIRALAX) 17 GM PACK PO PRN (15:02)
--- OUTSIDE RECORDS SUMMARY | 2024-10-12 15:07 | External Medical Summary | Summary of Care ---
Author Name Unknown Organization [facility] Address [address] [place] [address] Phone [phone] Care Team Providers Care Shear Setter Name Role Phone Toshia Reynaga DO Primary Care Provider [phone] Reason for Visit * Reason Comments Outpatient Testing Encounter Details Date Type Department Care Team (Late st Contact Info) Description 10/10/2024 11:10 AM EDT Laboratory Laboratory, [facility] [address] [place] [address] [facility] [address] [place] [address] Chronic ITP (idiopathic thrombocytopenia) ([facility]) Allergies Active Allergy Reactions Criticality Noted Date Comments Lisinopril Other (Please comment) 05/06/2022 Burning in throat documented as of this encounter (statuses as of 10/12/2024) Medications Cyanocobalamin 1000 MCG Oral Tablet Take [...] as of this encounter (statuses as of 10/12/2024) Active Problems Problem Noted Date Diagnosed Date [...] as of this encounter (statuses as of 10/12/2024) Resolved Problems Problem Noted Date Diagnosed Date Resolved Date COPD, group B, by GOLD 2017 classification 06/05/2023 10/03/2024 Overview: Per COPD GOLD Classification Chronic obstructive pulmonary disease 05/11/2023 06/08/2023 Overview: Per COPD GOLD Classification documented as of this encounter (statuses as of 10/12/2024) Immunizations No known immunizationsdocumented as of this [...] No 05/29/2024 Are you (or your family) venanico eless or worried that you might be [...] as of this encounter Miscellaneous Notes * Result Encounter Note - Ama Maldonado CRNP - 10/12/2024 10:16 AM EDT Talked to son--they took her to [facility] today. MSM documented in this encounter Plan of Treatment Upcoming Encounters Date Type Department Care Team (Late st Contact Info) Description 10/17/2024 9:30 AM EDT Office Visit Hematology/Oncology [facility] [address] [place] [id number] Zeeshan Choi MD [address] [place] [id number] 10/22/2024 11:00 AM EDT Office Visit Dermatology [facility] [address] [place] [id number] Deep Han MD [address] [place] [id number] 10/24/2024 9:00 AM EDT Pharmacy Pharmacy Hematology Oncology [facility] [place] [address] [place] [address] [facility], [facility] Hem/Onc [address] [place] [address] 12/10/2024 10:00 AM EDT Office Visit Family Practice [facility] [address] [facility] [place] [address] Toshia Reynaga DO [address] [place] [address] 12/24/2024 1:30 PM EDT Office Visit Pulmonary Medicine, [facility] [address] [place] [phone] Enrique Fernandez MD [address] [place] [address] 02/10/2025 9:40 AM EDT Office Visit Family Practice [facility] [address] [place] [address] Toshia Reynaga DO [address] [place] [id number] Health Maintenance Due Date Last Done Comments DTap/Tdap Vaccines (1 - Tdap) 09/29/1954 Albumin/Creatinine Ratio 05/11/2024 05/11/2023, 07/24 Adult Wellness Visit 01/23/2025 01/24/2024 Depression Screening 05/29/2025 05/29/2024 CKD PHOS USE SMARTSET 59245 06/10/2025 06/10/2024, 0 11/10/2022 O2 ASSESSMENT COMPLETED IN PAST YEAR FOR COPD 09/12/2025 09/12/2024 CKD HGB USE SMARTSET 69058 10/10/202510/10, 10/10/2024, 09/12/2024, Additional history exists DXA [...] DIFFERENTIAL, TECHNOLOGIST REVIEW (10/10/2024 10:51 AM EDT) Pathologist [facility] 10/10/2024 11:25 AM EDT LAB[facility]10 Blood Venous blood specimen / Unknown Venipuncture / Unknown 10/10/2024 10:51 AM EDT 10/10/2024 10:51 AM EDT Ama MCHUGH LAB BLOOD ORDERABLES Anamaria l Result LABORATORY [facility] 57-10 [address] [place] [address] * (ABNORMAL) DIFFERENTIAL, AUTOMATED (10/10/2024 10:51 AM EDT) Pathologist [facility] WBC 9.67 4.00 - 10.80 K/uL 10/10/2024 [...] 0.70 K/uL 10/10/2024 11:25 AM EDT [facility] [place] [facility] 57-10 Absolute Basophils 0.05 0.00 - 0.20 K/uL 10/10/2024 11:25 AM EDT [facility] [place] [facility] 57-10 Blood Venous blood specimen / Unknown Venipuncture / Unknown 10/10/2024 10:51 AM EDT 10/10/2024 10:51 AM EDT Ama MCHUGH LAB BLOOD ORDERABLES Anamaria orozco Result LABORATORY [facility] [address] [place] [address] * (ABNORMAL) CBC (10/10/2024 10:51 AM EDT) [facility] WBC 9.67 4.00 - 10.80 K/uL 10/10/2024 11:25 AM EDT [facility] [place] [facility] 57-10 RBC 3.46 3.85 - 5.15 M/uL 10/10/2024 11:25 AM EDT [facility] [place] [facility] 57-10 HGB 10.6(L) 12.0 - 15.3 g/dL 10/10/2024 11:25 AM EDT [facility] [place] [facility] 57-10 HCT 33.0(L) 36.0 - 45.2 % 10/10/2024 11:25 AM EDT [facility] [place] [facility] 57-10 MCV 95.4 81.5 - 97.5 fL 10/10/2024 11:25 AM EDT [facility] [place] [facility] 57-10 MCH 30.6 27.0 - 34.0 pg 10/10/2024 11:25 AM EDT [facility] [place] [facility] 57-10 MCHC 32.1 32.0 - 36.0 g/dL 10/10/2024 11:25 AM EDT [facility] [place] [facility] 57-10 RDW 13.9 11.5 - 15.5 % 10/10/2024 11:25 AM EDT [facility] [place] [facility] 57-10 PLT 30(L) 140 - 400 K/uL 10/10/2024 11:25 AM EDT [facility] [place] [facility] 57-10 Comment: Results rechecked. MPV 13.3 6.6 - 11.1 fL 10/10/2024 11:25 AM EDT [facility] [place] [facility] 57[facility]10 Blood Venous blood specimen / Unknown Venipuncture / Unknown 10/10/2024 10:51 AM EDT 10/10/2024 10:51 AM EDT Ama MCHUGH LAB BLOOD ORDERABLES Anamaria l Result [facility] [place] [address] documented in this encounter Visit Diagnoses Diagnosis Chronic ITP (idiopathic thrombocytopenia) (HCC) Immune thrombocytopenic purpura documented in this encounter Care Teams Shear Setter Relationship Specialty Start Date End Date Toshia Reynaga DO [address] [place] [address] PCP - General Family Medicine 12/07/22 documented as of this encounter
--- OUTSIDE RECORDS SUMMARY | 2024-10-12 15:07 | External Medical Summary | Summary of Care ---
Author Name Unknown Organization [facility] Address [address] [place] [address] Phone [phone] Care Team Providers Care Medical Biller Name Role Phone Toshia Reynaga DO Primary Care Provider [phone] Encounter Details Date Type Department Care Team (Late st Contact Info) Description 10/12/2024 Orders Only Hematology/Oncology, [facility] [address] [place] [address] Ama Maldonado CRNP [address] [place], [place] [id number] Thrombocytopenia, congenital and hereditary (HCC)* Allergies Active [...] fibrillation 01/24/2024 Chronic respiratory failure with hypoxia 05/06/2 024 Moderate pulmonary hypertension 09/18/2023 Hx of [...] State [facility] [address] [place] [id number] Zeeshan Choi MD [address] [place] [address] 10/22/2024 11:00 AM EDT Office Visit Dermatology [facility] [place] [address] [facility] [place] [address] Deep Han MD [address] [facility] [place] [address] 10/24/2024 9:00 AM EDT Pharmacy Pharmacy Hematology Oncology [facility] [address] [place] [address] [facility], [facility] Hem/Onc [address] [place] [address] 12/10/2024 10:00 AM EDT Office Visit [facility] [address] [place] [address] Toshia Reynaga, [address] [place] [address] 12/24/2024 1:30 PM EDT Office Visit Pulmonary Medicine, [facility] [address] [place] [phone] Enrique Fernandez MD [address] [place] [address] 02/10/2025 9:40 AM EDT Office Visit [facility] [address] [place] [address] Toshia Reynaga, [address] [facility] [place] [address] Scheduled Orders Name Type Priority Associated Diagnoses Orde r Schedule CBC WITH WBC DIFFERENTIAL Lab Routine Thrombocytopenia, congenital and hereditary (HCC) Expected: 10/14/2024, Expires: 10/12/2025 RETICULOCYTE PANEL Lab Routine Thrombocytopenia, congenital and hereditary (HCC) Expected: 10/12/2024, Expires: 10/12/2025 Health Maintenance Due Date Last Done Comments DTap/Tdap Vaccines (1 - Tdap) 09/29/1954 Albumin/Creatinine Ratio 05/11/2024 05/11/2023, 07/24 Adult Wellness Visit 01/23/2025 01/24/2024 Depression Screening 05/29/2025 05/29/2024 CKD PHOS USE SMARTSET 28441 06/10/2025 06/10/2024, 0 11/10/2022 O2 ASSESSMENT COMPLETED IN PAST YEAR FOR COPD 09/12/2025 09/12/2024 CKD HGB USE SMARTSET 07544 10/10/202510/10, 10/10/2024, 09/12/2024, Additional history exists DXA [...] purpura documented in this encounter Care Teams Medical Biller Relationship Specialty Start Date End Date Toshia Reynaga DO [address] [place] [address] PCP - General Family Medicine 12/07/22 documented as of this encounter
[2024-10-12] MEDS: cefTRIAXone SODIUM 1,000 MG/50 ML BAG IV SCH (17:19)
[2024-10-12 17:24] LABS: Ferritin 45.6 ng/ml (8-388)
[2024-10-12 17:29] LABS: Folate (Folic Acid),Ser orPlas > 22.30 ng/ml (>5.38)
[2024-10-12 17:30] LABS: Vitamin B12 1305 pg/ml (180-914)
--- NOTE | 2024-10-12 17:54 | Communication Note ---
Date of Service: October 12, 2024 Patient reports fall in ED while using the bathroom with head/neck strike Patient did not report to staff Discussed with this provider on repeat exam Exam without visible ecchymosis or tenderness however, given thrombocytopenia will order Ct head now
--- NOTE | 2024-10-12 18:44 | CT Scan Report ---
CT head without contrast History: Trauma Comparison: 06/12/2023 Technique: Using multidetector thin collimation helical acquisition technique, axial, coronal and sagittal CT images from the skull base to the vertex were obtained without intravenous contrast. Dose reduction techniques were achieved by using automatic exposure control and/or adjustment of mA and/or kV according to patient size and/or use of iterative reconstruction technique. Findings: No intracranial hemorrhage, mass-effect, or midline shift. The ventricles are proportionate to the cerebral sulci. The mercedes to white matter differentiation of the cerebral hemispheres is preserved. The basal cisterns are patent. Moderate cerebral atrophy. The visualized paranasal sinuses are clear. Mastoid air cells are clear. Impression: No acute intracranial pathology. Electronically signed by Kostas Diaz 10-12-2024 6:43 PM
[2024-10-12] MEDS: IRON SUCROSE 300 MG in SODIUM CHLORIDE 0.9% 250 ML IV ONE (19:23)
[2024-10-12 20:18] LABS: Hematocrit (blood only) 26.1 % (37.0-47.0); Hemoglobin 8.6 g/dl (12.0-16.0)
[2024-10-12] MEDS: METOPROLOL SUCC 50MG EXT REL TAB PO SCH (20:54)
[2024-10-12] MEDS: DOCUSATE SODIUM 100 MG CAP PO SCH (21:54)
[2024-10-12] MEDS ORDERED: hydrOXYzine HCl 10 MG TAB PO PRN (23:47)
[2024-10-13] MEDS: NSS + 20MEQ KCL 20 MEQ/1,000 ML BAG IV ONE (00:11)
[2024-10-13] MEDS: MELATONIN 3 MG TAB PO PRN (00:17)
[2024-10-13 06:31] LABS: Hematocrit (blood only) 23.8 % (37.0-47.0); Hemoglobin 7.8 g/dl (12.0-16.0); Mean Corpuscular Hemoglobin 30.5 pg (25.0-34.0); Mean Corpuscular Hgb Conc 32.8 g/dL (32.0-36.0); Mean Platelet Volume 12.7 fL (9.4-12.4); Platelet Count 102 K/uL (130-400); RDW Standard Deviation 48.3 fL (36.4-46.3); Red Blood Count 2.56 M/uL (4.20-5.40); White Blood Count 9.39 K/ul (4.8-10.8)
[2024-10-13 06:38] LABS: BUN Creatinine Ratio 29.3 (10-20); Calcium 8.7 mg/dl (8.6-10.3); Creatinine Clr Calc Pharmacy 31.3 ml/min
[2024-10-13 06:46] LABS: Basophils # (auto) 0.02 K/uL (0.00-0.20); Basophils % (auto) 0.2 %; Immature Granulocytes # (auto) 0.09 K/uL (0.01-0.20); Lymphocytes # (auto) 1.15 K/uL (1.20-3.40); Lymphocytes % (auto) 12.2 %; Monocytes # (auto) 0.36 K/uL (0.11-0.59); Monocytes % (auto) 3.8 %; Neutrophils # (auto) 7.77 K/uL (1.40-6.50); Neutrophils % (auto) 82.8 %; Polychromasia 1+
[2024-10-13] MEDS: POLYETHYLENE (MIRALAX) 17 GM PACK PO SCH (07:05)
[2024-10-13] MEDS: dexAMETHasone 40 MG in DEXTROSE 5% 25 ML IV SCH (07:32)
[2024-10-13] MEDS: amLODIPine BESYLATE 5 MG TAB PO SCH (07:32)
[2024-10-13] MEDS: FLUTICASONE FUROATE 100MCG 14 PUFFS/INHALER INH SCH (07:33)
[2024-10-13] MEDS: UMECLIDINIUM/VILANTEROL 62.5/25MCG 7 PUFFS/INHALER INH SCH (07:34)
--- NOTE | 2024-10-13 08:29 | Hospitalist Progress Note ---
Date of Service October 13, 2024 Assessment & Plan (1) Thrombocytopenia: (2) Acute ITP: (3) Chronic hypoxic respiratory failure, on home oxygen therapy: (4) Paroxysmal atrial fibrillation: Plan Ms. Kennedy is an 88-year-old female with past medical history significant for chronic respiratory failure with hypoxia currently on home oxygen 3 L, COPD, moderate pulmonary hypertension, hypertension constipation, protein-calorie malnutrition, CKD stage III , chronic ITP, prior nonmelanoma skin cancer , atrial fibrillation who is admitted for acute on chronic ITP. Severe thrombocytopenia Acute on Chronic ITP Hematochezia Missed medication due to insurance/pharmacy similar presentation 2021 Start IV decadron 40mg daily--discontinued s/p IVIG 1g/1kg per Heme Continue home Doptelet --Discussed with hematology Dr. Zeeshan Choi on 10/13/2024: Agrees to discontinue steroids and continue Doptelet as platelets dramatically improved Monitor CBC Needs follow-up with hematology on discharge Resume Eliquis likely tomorrow if no recurrence of hematochezia Monitor platelet count closely Strokelike symptoms/abnormal upper extremity movements/shakiness DD: Secondary to steroids, UTI Cannot rule out seizures CVA unlikely given negative imaging studies and no focal deficits on exam --MRI Brain: No evidence for acute infarct. --EEG pending --Head CTA:No acute intracranial findings. No large vessel occlusion. No intracranial aneurysm. --Neck CTA: No stenosis, dissection or aneurysm within the bilateral common carotid, cervical internal carotid or vertebral arteries. PT OT, speech eval Aspiration, fall precautions Appreciate neurology input Continue neurochecks Urinary tract infection--POA Urine culture growing Enterococcus faecalis Empirically started on daptomycin Renally adjust medications as needed Follow-up final cultures COPD Nocturnal hypoxia 2L at bedtime continue o2 at bedtime copd stable, continue home nebs Currently no signs of exacerbation Paroxysmal A-fib Continue metoprolol 50mg BID Resume Eliquis likely tomorrow Chronic GABRIELA anemia Baseline hemoglobin around 7-9 FOBT + thrombocytopenia and reported hematochezia Transfuse < 7.0 or symptomatic Denies any bleeding issues currently Continue iron supplements Hypertension Continue metoprolol Monitor Constipation Continue bowel regimen CKD stage III Cr at baseline Monitor renal function DVT Px: SCDs for now CODE STATUS DNI DNR Disposition PT OT prior to discharge Admission and Anticipated Discharge Date Admission Date: October 12, 2024 Subjective Patient is seen and examined at bedside RN noted patient to have garbled speech, balance issues with ambulation, bilateral upper extremity abnormal movements, facial drooling Patient denied any chest pain, shortness of breath, abdominal pain, dizziness, blurry vision, focal weakness Discussed with hematology today Imaging studies showed no acute CVA Tried to reach family --no answer Review of Systems Review of Systems: All systems reviewed & are unremarkable except as noted in Subjective Physical Exam Physical Exam: Physical Exam: Vitals signs as noted above General Appearance: Thin, frail, elderly, no apparent distress Head: normocephalic, Atraumatic Eyes: normal inspection, EOMI Neck: supple, Trachea midline Respiratory/Chest: Normal breath sounds, CTA, No accessory muscle use Cardiovascular: S1, S2, No murmur Abdomen/GI:Soft, Non tender, Bowel sounds present Extremities/Musculoskeletal:normal inspection, no edema Neurologic/Psych:AAO, grossly no focal neurological deficits Skin: normal color, warm Results & Data Results & Data Vital Signs (Past 12 Hours) Vital Signs Temp Pulse Pulse Resp BP Pulse Ox O2 Del Method 10/13/24 07:00 60 10/13/24 04:22 36.5 C 82 16 151/62 H 94 Room Air 10/13/24 00:39 36.5 C 88 18 174/69 H 94 Room Air 10/12/24 22:52 Room Air 10/12/24 22:24 78 Laboratory Results Short CBC 10/12/24 10/13/24 Range/Units 20:00 05:44 WBC 9.39 (4.8-10.8) K/ul Hgb 8.6 L 7.8 L (12.0-16.0) g/dl Hct 26.1 L 23.8 L (37.0-47.0) % Plt Count 102 L D (130-400) K/uL BMP 10/13/24 05:44 Sodium 142 Potassium 4.0 Chloride 112 H Carbon Dioxide 25 BUN 27 H Creatinine 0.92 Glucose 155 H Calcium 8.7
[2024-10-13] MEDS: OPTIRAY 320 125ml IV ONE (08:33)
[2024-10-13] MEDS ORDERED: dexAMETHasone 40 MG in SYRINGE 0 ML IV SCH (09:00)
[2024-10-13] MEDS ORDERED: FUROSEMIDE 20 MG TAB PO SCH (09:00)
[2024-10-13] MEDS ORDERED: NON-FORMULARY MEDICATION (Fluticasone-Umeclidin-Vilanter [Trelegy Ellipta] 100-62.5-25 mcg INH SCH (09:00)
--- NOTE | 2024-10-13 09:00 | CT Scan Report ---
CT OF THE HEAD WITHOUT CONTRAST AND CT ANGIOGRAPHY OF THE HEAD CLINICAL HISTORY: Stroke like symptoms. COMPARISON STUDY: Head CTs June 12, 2023 and October 12, 2024. TECHNIQUE: Unenhanced and arterial phase imaging of the head was performed. Intravenous injection of 112 cc of Optiray 320 IV was uneventful. Sagittal and coronal reformats were viewed as well as pauline l intensity projections on an independent 3-D workstation. Automated exposure control was utilized fo r the study. A dose lowering technique was utilized adhering to the principles of ALARA. FINDINGS: No acute intracranial hemorrhage, midline shift or mass effect is present. Ventricular syst em is unremarkable. Basal cisterns are patent. There are no extra-axial collections. Exam is mildly c ompromised by artifact. There are no findings to suggest acute dural sinus thrombosis or acute territ orial infarct. White matter hypodensity suggests small vessel disease. The bilateral M1, M2, A1 and A 2 segments are patent. There is moderate calcified plaque within bilateral cavernous carotids without significant stenosis. There is no intracranial aneurysm. Posterior circulation is intact. The right vertebral artery is dominant. The major dural sinuses are patent. IMPRESSION: 1. No acute intracranial findings. 2. No large vessel occlusion. No intracranial aneurysm. ACT 112: Negative or not required by law. Electronically signed by: Rupert Pena M.D. 10/13/2024 8:57 AM
--- NOTE | 2024-10-13 09:02 | CT Scan Report ---
CT ANGIOGRAPHY OF THE NECK WITH CONTRAST CLINICAL HISTORY: Stroke like symptoms COMPARISON STUDY: Cervical spine CT June 12, 2023. Technique: CT angiography of the carotid and vertebral arteries was obtained using Optiray and 3D rec onstruction on an independent workstation. NASCET criteria was utilized. Automated exposure control was utilized for the study. A dose lowering technique was utilized adhering to the principles of ALA RA. Findings: Visualized portions of the lung apices are unremarkable. There is no cervical lymphadenopat hy. There are no cervical spine fractures. There is extensive atherosclerotic plaque of the aortic ar ch. Bilateral common carotid, cervical internal carotid and vertebral arteries are patent. No stenosi s, dissection or aneurysms within the neck is identified. The right vertebral artery is dominant. IMPRESSION: No stenosis, dissection or aneurysm within the bilateral common carotid, cervical interna l carotid or vertebral arteries. ACT 112: Negative or not required by law. Electronically signed by: Rupert Pena M.D. 10/13/2024 9:00 AM
[2024-10-13] MEDS: LORazepam 2 MG/1 ML VIAL IV ONE (11:15)
--- NOTE | 2024-10-13 11:38 | Neurology Consultation ---
Date of Consultation October 13, 2024 Assessment & Plan (1) Acute ITP: (2) Thrombocytopenia: (3) Stroke-like symptoms: Pt is an 89 yo woman w/ h/o hronic respiratory failure with hypoxia currently on home oxygen 3 L, COPD, moderate pulmonary hypertension, hypertension constipation, protein-calorie malnutrition, CKD stage III , chronic ITP, prior nonmelanoma skin cancer, atrial fibrillation presented to [facility] ED due to bright red blood per rectum and concern for acute on chronic ITP. Neurology was consulted for observation of stroke like symptoms since admission including facial droop and AMS. MRI has since returned without evidence of stroke. Suspicion is that alteration may relate to hospital related delirium and multiple medical co-morbidities. -- Safe to restart Eliquis from neuro perspective once platelets have stabilized and are consistently > 100. -- Can consider routine EEG ro r/o seizure as part of pt's AMS Telehealth Consultation Telehealth Information Telehealth Information: I performed this visit using a real-time telehealth connection between my location and the patients location ([facility]). After connecting through interactive tele-video, patient was identified by name and date of and/or wristband check.Patient (or authorized healthcare marketing sales representative) was informed that this was a telemedicine visit and it was being conducted confidentially over secure lines. My office door was closed and no one else was present in the room with me.Patient (or authorized healthcare marketing sales representative) provided consent to proceed with the visit, expressed an und erstanding of privacy and security of the telemedicine visit, and gave permission to have a hospital marketing sales representative in the room in order to assist with the visit and to conduct portions of the visit, as needed. I informed the patient (or authorized healthcare marketing sales representative) that I reviewed their record and presented the opportunity for them to ask any questions regarding the visit today. The patient agreed to participate. History of Present Illness Reason for Consultation: Stroke-like symptoms Requesting Physician: Dr. Gill Attending Physician: Gerald Gill MD History of Present Illness Copied per Admission H&P: "Ms. Kenendy is an 88-year-old female with past medical history significant for chronic respiratory failure with hypoxia currently on home oxygen 3 L, COPD, moderate pulmonary hypertension, hypertension constipation, protein-calorie malnutrition, CKD stage III , chronic ITP, prior nonmelanoma skin cancer, atrial fibrillation presented to [facility] ED due to bright red blood per rectum. Patient states that she has been in her usual state of health; however, noted that she had been constipated. Yesterday, when trying to go to the bathroom, she was passing "little hillary" and noted blood dripping into the toilet. She states she tried Mirlax, but her bowels were still so firm. She does note that she has not had her Doptelet in over a week due to insurance issues and specialty pharmacy issues. She was able to get the medication yesterday and took a dose in the evening She denies gingival bleeding, any new rashes, hemoptysis, hematuria, hematemesis or melena. She denies abdominal pain, chest pain, confusion/headache. She does report some epistaxis with her night time oxygen. She also reports a few bruises on her arms, remarking she "bruises easy" In the ED, vitals were notable for BP of 130-160s, HR of 60s, and O2 sat of high 90s on room air. Imaging revealed questionable left lung pneumonitis/aspiration (no corresponding concerns) EKG QtC 433, Consultants: Heme: Dr. Choi, starting 1g/kg IVIG Patient to be admitted to [facility] for further evaluation and management of acute on chronic ITP" Exam limited as pt had just returned from MRI and had received ativan. But per nurse at [facility], she had had some facial droop and drooling as well as abnormal movement in her upper extremities. Had increasingly become confused since admission Allergies Allergy/AdvReac Type Severity Reaction Status Date / Time lisinopril AdvReac Intermediate Gastrointestinal Verified 12/05/23 23:46 Upset Home Medications Medication Instructions Recorded Confirmed Type amlodipine 5 mg tablet 5 mg PO DAILY 09/05/24 10/12/24 History apixaban 2.5 mg tablet (Eliquis) 2.5 mg PO BID 09/05/24 10/12/24 History avatrombopag 20 mg tablet 20 mg PO UD 09/05/24 10/12/24 History (Doptelet (10 tab pack)) ferrous sulfate 325 mg (65 mg 325 mg PO DAILY 09/05/24 10/12/24 History iron) tablet,delayed release fluticasone fur. 100 mcg-umeclid 1 inh inhalation DAILY 09/05/24 10/12/24 History 62.5 mcg-vilant 25 mcg inhalat.powder (Trelegy Ellipta) furosemide 20 mg tablet 20 mg PO DAILY 09/05/24 10/12/24 History metoprolol succinate 50 mg 50 mg PO BID 09/05/24 10/12/24 History tablet,extended release 24 hr polyethylene glycol 3350 17 17 g PO DAILY PRN Constipation 09/05/24 10/12/24 History gram/dose oral powder Patient History Medical History (Updated 10/13/24 @ 13:29 by Michelle Diaz MD) Acute exacerbation of chronic obstructive pulmonary disease (COPD) COPD exacerbation Pneumonia SOB (shortness of breath) Acute on chronic diastolic HF (heart failure) SOB (shortness of breath) Hypokalemia Hypomagnesemia Congestive heart failure Hypoxemia Atrial fibrillation with rapid ventricular response Petechiae Gingival bleeding Acute idiopathic thrombocytopenic purpura Social History (Updated 10/12/24 @ 12:52 by Rebecca Rome PA-C) Smoking Status: Never smoker Hx Alcohol Use: No Hx Substance Use: No Preferred Language: Lithuanian Communication Ability: Effective Fiction And Nonfiction Prose Writer Required: No Beliefs That Will Affect Care: None Current Living Situation: Alone and Family Current Living Situation Comment: Lives with son in a mobile home Feels Safe at Home: Yes Safety Concerns: Feels Safe At This Time Assistive Devices: Denture - Upper, Denture - Lower and Glasses Physical Exam Patient resting comfortably in bed. Sleepy, does not respond to questioning or follow commands. Does eventually smile with symmetric face. Seen moving all extremities. Results & Data Vital Signs (Past 12 Hours) Vital Signs Temp Pulse Pulse Resp BP Pulse Ox O2 Del Method 10/13/24 07:40 36.5 C 82 16 158/66 H 93 Room Air 10/13/24 07:40 Room Air 10/13/24 07:00 60 10/13/24 04:22 36.5 C 82 16 151/62 H 94 Room Air 10/13/24 00:39 36.5 C 88 18 174/69 H 94 Room Air Laboratory Results Per Chart Diagnostic Findings MRI 10/13 - No acute abnormality
--- NOTE | 2024-10-13 13:02 | Magnetic Resonance Report ---
MRI OF THE BRAIN WITHOUT CONTRAST CLINICAL HISTORY: Stroke like symptoms. COMPARISON STUDY: Head CT October 12, [address] and CTA of the head performed earlier today. TECHNIQUE: Utilizing a 3 Mary magnet and dedicated coil, multiplanar, multiecho imaging of the brain was performed without IV contrast. FINDINGS: This exam is moderately compromised by motion artifact. However, the diffusion-weighted seq uence diagnostic. There are no foci of restricted diffusion to suggest acute infarct. No acute intrac ranial hemorrhage, midline shift or mass effect is present. Ventricular system is unremarkable. The b naomi cisterns are patent. There are no extra-axial collections. No intracranial masses are identified on unenhanced exam. IMPRESSION: 1. No evidence for acute infarct. 2. Moderate motion artifact, as described above. ACT 112: Negative or not required by law. Electronically signed by: Rupert Pena M.D. 10/13/2024 1:01 PM
[2024-10-13] MEDS: LACTATED RINGER'S 1,000 ML IV ONE (14:05)
[2024-10-13] MEDS: LINEZOLID 600 MG TAB PO SCH (14:05)
[2024-10-13] MEDS: DAPTOmycin 350 MG in SYRINGE 0 ML IV SCH (15:30)
[2024-10-13] MEDS ORDERED: PHA DELIRIUM CONSULT PRN (22:01)
[2024-10-14 06:31] LABS: Mean Corpuscular Hemoglobin 31.3 pg (25.0-34.0); Mean Corpuscular Hgb Conc 33.3 g/dL (32.0-36.0); Mean Corpuscular Volume 93.8 fL (80.0-100.0); Mean Platelet Volume 12.9 fL (9.4-12.4); Platelet Count 78 K/uL (130-400); RDW Coefficient of Variation 14.4 % (11.5-14.5); RDW Standard Deviation 49.1 fL (36.4-46.3); Red Blood Count 2.24 M/uL (4.20-5.40); White Blood Count 16.99 K/ul (4.8-10.8)
[2024-10-14 06:41] LABS: BUN Creatinine Ratio 33.3 (10-20); Calcium 8.6 mg/dl (8.6-10.3); Creatinine Clr Calc Pharmacy 30.9 ml/min; Magnesium 1.9 mg/dl (1.7-2.4)
[2024-10-14 07:03] LABS: Basophils # (auto) 0.02 K/uL (0.00-0.20); Basophils % (auto) 0.1 %; Immature Granulocytes # (auto) 0.25 K/uL (0.01-0.20); Immature Granulocytes % (auto) 1.5 %; Lymphocytes % (auto) 8.8 %; Monocytes # (auto) 0.74 K/uL (0.11-0.59); Monocytes % (auto) 4.4 %; Neutrophils # (auto) 14.48 K/uL (1.40-6.50); Neutrophils % (auto) 85.2 %
[2024-10-14] MEDS ORDERED: SODIUM CHLORIDE 0.9% 100 ML IV PRN (09:10)
[2024-10-14] MEDS: FERROUS SULFATE 325 MG TAB PO SCH (10:09)
--- NOTE | 2024-10-14 14:57 | Hospitalist Progress Note ---
Date of Service October 14, 2024 Assessment & Plan (1) Thrombocytopenia: (2) Acute ITP: (3) Chronic hypoxic respiratory failure, on home oxygen therapy: (4) Paroxysmal atrial fibrillation: Plan Ms. Kennedy is an 88-year-old female with past medical history significant for chronic respiratory failure with hypoxia currently on home oxygen 3 L, COPD, moderate pulmonary hypertension, hypertension constipation, protein-calorie malnutrition, CKD stage III , chronic ITP, prior nonmelanoma skin cancer , atrial fibrillation who is admitted for acute on chronic ITP. Severe thrombocytopenia Acute on Chronic ITP Hematochezia Missed medication due to insurance/pharmacy similar presentation 2021 Start IV decadron 40mg daily--discontinued s/p IVIG 1g/1kg per Heme Continue home Doptelet --Discussed with hematology Dr. Zeeshan Choi on 10/13/2024: Agrees to discontinue steroids and continue Doptelet as platelets dramatically improved Monitor CBC Needs follow-up with hematology on discharge Will hold Eliquis given anemia, thrombocytopenia Monitor platelet count closely Platelet count 78K today Monitor H&H and transfuse as needed Strokelike symptoms/abnormal upper extremity movements/shakiness DD: Secondary to steroids, UTI Cannot rule out seizures CVA unlikely given negative imaging studies and no focal deficits on exam --MRI Brain: No evidence for acute infarct. --EEG pending --Head CTA:No acute intracranial findings. No large vessel occlusion. No intracranial aneurysm. --Neck CTA: No stenosis, dissection or aneurysm within the bilateral common carotid, cervical internal carotid or vertebral arteries. PT OT, speech eval Aspiration, fall precautions Appreciate neurology input Continue neurochecks Urinary tract infection--POA Urine culture growing Enterococcus faecalis Empirically started on daptomycin Renally adjust medications as needed Follow-up final culture sensitivities Continue daptomycin for now COPD Nocturnal hypoxia 2L at bedtime continue o2 at bedtime copd stable, continue home nebs Currently no signs of exacerbation Paroxysmal A-fib Continue metoprolol 50mg BID Resume Eliquis as able Chronic GABRIELA anemia Baseline hemoglobin around 7-9 FOBT + thrombocytopenia and reported hematochezia Transfuse < 7.0 or symptomatic Denies any bleeding issues currently Continue iron supplements Hypertension Continue metoprolol Monitor Constipation Continue bowel regimen CKD stage III Cr at baseline Monitor renal function DVT Px: SCDs for now CODE STATUS DNI DNR Disposition PT OT prior to discharge Admission and Anticipated Discharge Date Admission Date: October 12, 2024 Subjective Patient is seen and examined at bedside Reports having transient upper extremity jerking movements for a few seconds this morning Otherwise feels well and offers no new complaints Patient denied any chest pain, shortness of breath, abdominal pain, dizziness, blurry vision, focal weakness Review of Systems Review of Systems: All systems reviewed & are unremarkable except as noted in Subjective Physical Exam Physical Exam: Physical Exam: Vitals signs as noted above General Appearance: Thin, frail, elderly, no apparent distress Head: normocephalic, Atraumatic Eyes: normal inspection, EOMI Neck: supple, Trachea midline Respiratory/Chest: Normal breath sounds, CTA, No accessory muscle use Cardiovascular: S1, S2, No murmur Abdomen/GI:Soft, Non tender, Bowel sounds present Extremities/Musculoskeletal:normal inspection, no edema Neurologic/Psych:AAO, grossly no focal neurological deficits Skin: normal color, warm Results & Data Results & Data Vital Signs (Past 12 Hours) Vital Signs Temp Pulse Pulse Resp BP Pulse Ox O2 Del Method 10/14/24 11:04 36.3 C L 66 16 139/76 99 Room Air 10/14/24 10:30 93 10/14/24 09:24 Room Air 10/14/24 07:36 36.9 C 64 14 159/68 H 100 Nasal Cannula 10/14/24 07:08 60 10/14/24 04:00 36.5 C 66 18 154/56 H 97 Nasal Cannula O2 Flow Rate 10/14/24 11:04 10/14/24 10:30 10/14/24 09:24 10/14/24 07:36 3 10/14/24 07:08 10/14/24 04:00 3 Laboratory Results Short CBC 10/14/24 Range/Units 05:46 WBC 16.99 H (4.8-10.8) K/ul Hgb 7.0 L (12.0-16.0) g/dl Hct 21.0 L (37.0-47.0) % Plt Count 78 L (130-400) K/uL BMP 10/14/24 05:46 Sodium 144 Potassium 4.0 Chloride 113 H Carbon Dioxide 28 BUN 31 H Creatinine 0.93 Glucose 127 H Calcium 8.6
[2024-10-14 15:31] LABS: Hematocrit (blood only) 23.4 % (37.0-47.0); Hemoglobin 7.6 g/dl (12.0-16.0)
[2024-10-15 07:10] LABS: Hematocrit (blood only) 20.3 % (37.0-47.0); Hemoglobin 6.6 g/dl (12.0-16.0); Mean Corpuscular Hemoglobin 30.4 pg (25.0-34.0); Mean Corpuscular Hgb Conc 32.5 g/dL (32.0-36.0); Mean Corpuscular Volume 93.5 fL (80.0-100.0); Mean Platelet Volume 11.9 fL (9.4-12.4); Platelet Count 52 K/uL (130-400); RDW Standard Deviation 47.2 fL (36.4-46.3); Red Blood Count 2.17 M/uL (4.20-5.40); White Blood Count 10.67 K/ul (4.8-10.8)
[2024-10-15 07:26] LABS: BUN Creatinine Ratio 34.5 (10-20); Calcium 8.1 mg/dl (8.6-10.3); Creatinine Clr Calc Pharmacy 26.2 ml/min; Potassium 3.9 mmol/L (3.5-5.1)
[2024-10-15 07:37] LABS: Basophils # (auto) 0.01 K/uL (0.00-0.20); Basophils % (auto) 0.1 %; Immature Granulocytes # (auto) 0.12 K/uL (0.01-0.20); Immature Granulocytes % (auto) 1.1 %; Lymphocytes # (auto) 1.26 K/uL (1.20-3.40); Lymphocytes % (auto) 11.8 %; Monocytes # (auto) 0.73 K/uL (0.11-0.59); Monocytes % (auto) 6.8 %; Neutrophils # (auto) 8.55 K/uL (1.40-6.50); Neutrophils % (auto) 80.2 %; RBC Morphology Unremarkable
[2024-10-15 11:24] LABS: Hematocrit (blood only) 24.1 % (37.0-47.0); Hemoglobin 7.9 g/dl (12.0-16.0)
[2024-10-15] MEDS ORDERED: DEXAMETHASONE SOD INJ 4 MG/ML VIAL IV SCH (13:30)
--- NOTE | 2024-10-15 15:14 | Hospitalist Progress Note ---
Date of Service October 15, 2024 Assessment & Plan (1) Thrombocytopenia: (2) Acute ITP: (3) Chronic hypoxic respiratory failure, on home oxygen therapy: (4) Paroxysmal atrial fibrillation: Plan Ms. Kennedy is an 88-year-old female with past medical history significant for chronic respiratory failure with hypoxia currently on home oxygen 3 L, COPD, moderate pulmonary hypertension, hypertension constipation, protein-calorie malnutrition, CKD stage III , chronic ITP, prior nonmelanoma skin cancer , atrial fibrillation who is admitted for acute on chronic ITP. Severe thrombocytopenia Acute on Chronic ITP Hematochezia--resolved Missed medication due to insurance/pharmacy similar presentation 2021 s/p IVIG 1g/1kg per Heme Continue home Doptelet --Discussed with hematology Dr. Zeeshan Choi on 10/13/2024 and on 10/15/2024 Monitor CBC Will hold Eliquis given anemia, thrombocytopenia Monitor platelet count closely Platelet count 52 today Monitor H&H and transfuse as needed Currently no active bleeding issues Discussed with hematology today: Advised to restart Decadron 40 mg daily for 2 days Needs follow-up with hematology on discharge with repeat blood work Strokelike symptoms/abnormal upper extremity movements/shakiness DD: Secondary to steroids, UTI Cannot rule out seizures CVA unlikely given negative imaging studies and no focal deficits on exam --MRI Brain: No evidence for acute infarct. --EEG pending --Head CTA:No acute intracranial findings. No large vessel occlusion. No intracranial aneurysm. --Neck CTA: No stenosis, dissection or aneurysm within the bilateral common carotid, cervical internal carotid or vertebral arteries. PT OT, speech eval Aspiration, fall precautions Appreciate neurology input Continue neurochecks Resolved Urinary tract infection--POA Urine culture growing Enterococcus faecalis Continue daptomycin Renally adjust medications as needed Follow-up final culture sensitivities Renally adjust daptomycin as needed COPD Nocturnal hypoxia 2L at bedtime continue o2 at bedtime copd stable, continue home nebs Currently no signs of exacerbation Paroxysmal A-fib Continue metoprolol 50mg BID Resume Eliquis as able Chronic GABRIELA anemia Baseline hemoglobin around 7-9 FOBT + thrombocytopenia and reported hematochezia Transfuse < 7.0 or symptomatic Denies any bleeding issues currently Continue iron supplements Hypertension Continue metoprolol Monitor Constipation Continue bowel regimen CKD stage III Cr at baseline Monitor renal function DVT Px: SCDs for now CODE STATUS DNI DNR Disposition PT OT : Recommends rehab Admission and Anticipated Discharge Date Admission Date: October 12, 2024 Subjective Patient is seen and examined at bedside Subjectively feels a lot better today No recurrence of upper extremity jerking movements Denies any chest pain, shortness of breath, abdominal pain, dizziness Discussed with hematology today Review of Systems Review of Systems: All systems reviewed & are unremarkable except as noted in Subjective Physical Exam Physical Exam: Physical Exam: Vitals signs as noted above General Appearance: Thin, frail, elderly, no apparent distress Head: normocephalic, Atraumatic Eyes: normal inspection, EOMI Neck: supple, Trachea midline Respiratory/Chest: Normal breath sounds, CTA, No accessory muscle use Cardiovascular: S1, S2, No murmur Abdomen/GI:Soft, Non tender, Bowel sounds present Extremities/Musculoskeletal:normal inspection, no edema Neurologic/Psych:AAO, grossly no focal neurological deficits Skin: normal color, warm Results & Data Results & Data Vital Signs (Past 12 Hours) Vital Signs Temp Pulse Pulse Resp BP Pulse Ox O2 Del Method 10/15/24 11:13 36.4 C L 57 L 20 138/55 L 97 Room Air 10/15/24 08:19 64 10/15/24 07:44 36.6 C 57 L 20 152/51 H 96 Nasal Cannula 10/15/24 07:09 53 L 10/15/24 04:04 36.6 C 63 18 145/69 H 98 Room Air O2 Flow Rate 10/15/24 11:13 10/15/24 08:19 10/15/24 07:44 3.5 10/15/24 07:09 10/15/24 04:04 Laboratory Results Short CBC 10/14/24 10/15/24 10/15/24 Range/Units 14:37 06:00 10:59 WBC 10.67 (4.8-10.8) K/ul Hgb 7.6 L 6.6 L* 7.9 L (12.0-16.0) g/dl Hct 23.4 L 20.3 L* 24.1 L (37.0-47.0) % Plt Count 52 L (130-400) K/uL BMP 10/15/24 06:00 Sodium 141 Potassium 3.9 Chloride 111 H Carbon Dioxide 29 BUN 38 H Creatinine 1.10 Glucose 92 Calcium 8.1 L
[2024-10-15] MEDS: dexAMETHasone 40 MG in DEXTROSE 5% 25 ML IV SCH (15:25)
[2024-10-15 21:03] LABS: Hematocrit (blood only) 25.3 % (37.0-47.0); Hemoglobin 8.4 g/dl (12.0-16.0)
[2024-10-16 03:22] VITALS: RESP 18
[2024-10-16 07:23] LABS: Hematocrit (blood only) 23.5 % (37.0-47.0); Hemoglobin 7.8 g/dl (12.0-16.0); Mean Corpuscular Hemoglobin 30.4 pg (25.0-34.0); Mean Corpuscular Hgb Conc 33.2 g/dL (32.0-36.0); Mean Corpuscular Volume 91.4 fL (80.0-100.0); Mean Platelet Volume 12.5 fL (9.4-12.4); Platelet Count 90 K/uL (130-400); RDW Coefficient of Variation 13.2 % (11.5-14.5); RDW Standard Deviation 44.5 fL (36.4-46.3); Red Blood Count 2.57 M/uL (4.20-5.40); White Blood Count 10.37 K/ul (4.8-10.8)
[2024-10-16 07:45] LABS: BUN Creatinine Ratio 33.7 (10-20); Calcium 8.4 mg/dl (8.6-10.3); Creatinine Clr Calc Pharmacy 33.5 ml/min; Potassium 4.2 mmol/L (3.5-5.1)
[2024-10-16] MEDS: AMOXICILLIN 875 MG TAB PO SCH (11:04)
[2024-10-16 12:39] VITALS: BP 146/68; TEMP 97.3; O2SAT 99
--- NOTE | 2024-10-16 13:11 | Electroencephalogram ---
EEG Procedure Note Date of Service October 14, 2024 Start / End Times Start Time: 1142 End Time: [address] Gill History A 89-year-old female with seizure-like activity. EEG performed for evaluation of epileptiform activity. Home Medication List Medication Instructions Recorded Confirmed Type amlodipine 5 mg tablet 5 mg PO DAILY 09/05/24 10/12/24 History apixaban 2.5 mg tablet (Eliquis) 2.5 mg PO BID 09/05/24 10/12/24 History avatrombopag 20 mg tablet 20 mg PO UD 09/05/24 10/12/24 History (Doptelet (10 tab pack)) ferrous sulfate 325 mg (65 mg 325 mg PO DAILY 09/05/24 10/12/24 History iron) tablet,delayed release fluticasone fur. 100 mcg-umeclid 1 inh inhalation DAILY 09/05/24 10/12/24 History 62.5 mcg-vilant 25 mcg inhalat.powder (Trelegy Ellipta) furosemide 20 mg tablet 20 mg PO DAILY 09/05/24 10/12/24 History metoprolol succinate 50 mg 50 mg PO BID 09/05/24 10/12/24 History tablet,extended release 24 hr polyethylene glycol 3350 17 17 g PO DAILY PRN Constipation 09/05/24 10/12/24 History gram/dose oral powder Inpatient Medication List Amlodipine Besylate (Amlodipine Besylate 5 Mg Tab) 5 mg PO DAILY [facility] Stop: 11/12/24 08:59 Last Admin: 10/16/24 08:34 Dose: 5 mg Documented By: Admin: 10/15/24 08:21 Dose: 5 mg Documented By: [facility] Admin: 10/14/24 08:33 Dose: 5 mg Documented By: [facility] Admin: 10/13/24 07:32 Dose: 5 mg Documented By: [facility] Amoxicillin (Amoxicillin 875 Mg Tab) 875 mg PO BID DEEP[facility] Stop: 10/18/24 20:59 Last Admin: 10/16/24 11:04 Dose: 875 mg Documented By: [facility] Docusate Sodium (Docusate Sodium 100 Mg Cap) 100 mg PO BID DEEPTHI Stop: 11/11/24 20:59 Last Admin: 10/16/24 08:34 Dose: 100 mg Documented By: [facility] Admin: 10/15/24 21:55 Dose: 100 mg Documented By: [facility] Admin: 10/15/24 08:25 Dose: 100 mg Documented By: [facility] Admin: 10/14/24 20:26 Dose: 100 mg Documented By: [facility] Admin: 10/14/24 08:37 Dose: 100 mg Documented By: [facility] Admin: 10/13/24 20:29 Dose: 100 mg Documented By: Admin: 10/13/24 07:32 Dose: 100 mg Documented By: [facility] Admin: 10/12/24 21:54 Dose: Not Given Documented By: ISAMAR Ferrous Sulfate (Ferrous Sulfate 325 Mg Tab) 325 mg PO DAILY D[facility] Stop: 11/13/24 08:59 Last Admin: 10/16/24 08:34 Dose: 325 mg Documented By: [facility] Admin: 10/15/24 08:21 Dose: 325 mg Documented By: [facility] Admin: 10/14/24 10:09 Dose: 325 mg Documented By: [facility] Fluticasone Furoate (Fluticasone Furoate 100mcg 14 Puffs/Inhaler) 1 puffs INH DAILY [facility] Stop: 11/12/24 08:59 Last Admin: 10/16/24 08:33 Dose: 1 puffs Documented By: [facility] Admin: 10/15/24 08:20 Dose: 1 puffs Documented By: [facility] Admin: 10/14/24 08:32 Dose: 1 puffs Documented By: [facility] Admin: 10/13/24 07:33 Dose: 1 puffs Documented By: [facility] Dexamethasone 40 mg/ Dextrose 35 mls @ 50 mls/hr IV DAILY DEEPTHI Stop: 11/14/24 13:29 Last Infusion: 10/16/24 09:17 Dose: Infused Documented By: [facility] Admin: 10/16/24 08:33 Dose: 50 mls/hr Documented By: [facility] Infusion: 10/15/24 16:09 Dose: Infused Documented By: [facility] Admin: 10/15/24 15:25 Dose: 50 mls/hr Documented By: [facility] Melatonin (Melatonin 3 Mg Tab) 3 mg PO HS PRN PRN Reason: Sleep Stop: 11/11/24 23:46 Last Admin: 10/15/24 21:55 Dose: 3 mg Documented By: Admin: 10/13/24 20:29 Dose: 3 mg Documented By: Admin: 10/13/24 00:17 Dose: 3 mg Documented By: PAUL Metoprolol Succinate (Metoprolol Succ 50mg Ext Rel Tab) 50 mg PO BID DEEPTHI Stop: 11/11/24 20:59 Last Admin: 10/16/24 08:34 Dose: 50 mg Documented By: TLGomez Admin: 10/15/24 21:55 Dose: 50 mg Documented By: Admin: 10/15/24 08:21 Dose: 50 mg Documented By: [facility] Admin: 10/14/24 20:26 Dose: 50 mg Documented By: Admin: 10/14/24 08:33 Dose: 50 mg Documented By: [facility] Admin: 10/13/24 20:29 Dose: 50 mg Documented By: Admin: 10/13/24 10:21 Dose: 50 mg Documented By: [facility] Admin: 10/12/24 20:54 Dose: 50 mg Documented By: PAUL Avatrombopag: Non- Formulary Patient's Own Med 1 each PO Q24H [facility] Stop: 11/11/24 15:44 Last Admin: 10/16/24 08:33 Dose: 1 tab Documented By: Admin: 10/15/24 08:21 Dose: 1 tab Documented By: [facility] Admin: 10/14/24 08:34 Dose: 1 tab Documented By: [facility] Admin: 10/13/24 09:11 Dose: 1 tab Documented By: [facility] Admin: 10/12/24 16:25 Dose: 1 tab Documented By: KATJA Polyethylene Glycol (Polyethylene (Miralax) 17 Gm Pack) 17 gm PO DAILY DEEP[facility] Stop: 11/12/24 08:59 Last Admin: 10/16/24 08:34 Dose: 17 gm Documented By: Admin: 10/15/24 08:25 Dose: 17 gm Documented By: [facility] Admin: 10/14/24 08:37 Dose: 17 gm Documented By: [facility] Admin: 10/13/24 07:05 Dose: Not Given Documented By: [facility] Umeclidinium/Vilanterol (Umeclidinium/Vilanterol 62.5/25mcg 7 Puffs/Inhaler) 1 puffs INH DAILY DEEPTHI Stop: 11/12/24 08:59 Last Admin: 10/16/24 08:33 Dose: 1 puffs Documented By: Admin: 10/15/24 08:20 Dose: 1 puffs Documented By: [facility] Admin: 10/14/24 08:32 Dose: 1 puffs Documented By: [facility] Admin: 10/13/24 07:34 Dose: 1 puffs Documented By: HORTENSIA Discontinued Medications Pantoprazole Sodium 80 mg/ (Dextrose) 120 mls @ 480 mls/hr IV ONE STA Stop: 10/12/24 11:54 Last Infusion: 10/12/24 15:06 Dose: Infused Documented By: [facility] Admin: 10/12/24 12:12 Dose: 480 mls/hr Documented By: ARS Dexamethasone 40 mg/ Dextrose 60 mls @ 120 mls/hr IV 1300 DEEPTHI Stop: 10/12/24 13:29 Last Infusion: 10/12/24 15:06 Dose: Infused Documented By: [facility] Admin: 10/12/24 13:14 Dose: 120 mls/hr Documented By: ARS Immune Globulin (Octagam 10%) 200 mls @ 33.66 mls/hr IV 1400,1600,1800 DEEPTHI; Protocol Stop: 10/12/24 23:57 Last Titration: 10/12/24 18:50 Dose: Infused Documented By: [facility] Admin: 10/12/24 17:49 Dose: 5.94 mg/kg/min, 200 mls/hr Documented By: Titration: 10/12/24 17:03 Dose: Infused Documented By: [facility] Admin: 10/12/24 16:03 Dose: 5.94 mg/kg/min, 200 mls/hr Documented By: Titration: 10/12/24 15:53 Dose: Infused Documented By: [facility] Titration: 10/12/24 15:30 Dose: 5.94 mg/kg/min, 200 mls/hr Documented By: Titration: 10/12/24 15:02 Dose: 4.46 mg/kg/min, 150 mls/hr Documented By: [facility] Admin: 10/12/24 13:55 Dose: 1 mg/kg/min, 33.7 mls/hr Documented By: ARS Dexamethasone 40 mg/ Dextrose 35 mls @ 70 mls/hr IV DAILY DEEPTHI Stop: 11/12/24 08:59 Last Infusion: 10/13/24 08:20 Dose: Infused Documented By: [facility] Admin: 10/13/24 07:32 Dose: 70 mls/hr Documented By: HORTENSIA Ceftriaxone Sodium (Rocephin) 1,000 mg in 50 mls @ 100 mls/hr IV Q24H [facility]EEP[facility] Stop: 10/15/24 15:59 Last Infusion: 10/13/24 16:00 Dose: Infused Documented By: Admin: 10/13/24 15:30 Dose: 100 mls/hr Documented By: Infusion: 10/12/24 17:48 Dose: Infused Documented By: [facility] Admin: 10/12/24 17:19 Dose: 100 mls/hr Documented By: KATJA Iron Sucrose 300 mg/ Sodium (Chloride) 265 mls @ 176.667 mls/hr IV TODAY ONE Stop: 10/12/24 18:56 Last Infusion: 10/12/24 21:54 Dose: Infused Documented By: Admin: 10/12/24 19:23 Dose: 176.7 mls/hr Documented By: PAUL Potassium Chloride/Sodium Chloride (Normal Saline W/20 Meq Kcl) 20 meq in 1,000 mls @ 60 mls/hr IV .[id number] ONE Stop: 10/13/24 16:26 Last Infusion: 10/13/24 13:42 Dose: Infused Documented By: Admin: 10/13/24 00:11 Dose: 60 mls/hr Documented By: PAUL Lactated Ringer's (Lr) 1,000 mls @ 50 mls/hr IV .Q20H ONE Stop: 10/14/24 09:27 Last Infusion: 10/14/24 09:40 Dose: Infused Documented By: [facility] Admin: 10/13/24 14:05 Dose: 50 mls/hr Documented By: HORTENSIA Daptomycin 350 mg/ Syringe 7 mls @ 3.25 mls/min IV Q24H [facility]; Protocol Stop: 10/23/24 14:14 Last Admin: 10/14/24 14:55 Dose: 3.25 mls/min Documented By: [facility] Admin: 10/13/24 15:30 Dose: 3.25 mls/min Documented By: HORTENSIA Ioversol (Optiray 320 125ml) 112 ml IV ONCE ONE Stop: 10/13/24 08:33 Last Admin: 10/13/24 08:33 Dose: 112 ml Documented By: CIRILO Linezolid (Linezolid 600 Mg Tab) 600 mg PO BID DEEPTHI Stop: 10/23/24 13:39 Last Admin: 10/13/24 14:05 Dose: Not Given Documented By: Elisabet Lorazepam (Lorazepam 2 Mg/1 Ml Vial) 0.5 mg IV ONE ONE Stop: 10/13/24 10:15 Last Admin: 10/13/24 11:15 Dose: 0.5 mg Documented By: HORTENSIA Description This is a 21 electrode EEG with a single channel dedicated to limited EKG. The electrodes were placed in accordance with the International 10-20 system. Report: At the onset of the EEG the patient is awake. The background is disorganized with loss of the normal anterior to posterior gradient. The background appears continuous. The background predominantly consists of 5-7 hertz theta activity with some intermittent broad-based generalized sharply contoured waves with a anterior to posterior lag. Drowsiness is characterized by increased theta activity with reduced blink rate, and decreased myogenic artifact. No stage 2 sleep transients are seen. Interpretation Impression: This is an abnormal awake and drowsy routine EEG due to 1. generalized background slowing suggestive of a nonspecific encephalopathy, 2. intermittent triphasic waves which are nonspecific although commonly seen in metabolic encephalopathies (ie renal or hepatic).
--- NOTE | 2024-10-16 13:55 | Discharge Summary ---
Date of Service October 16, 2024 Admission HPI Per Admitting Provider Ms. Kennedy is an 88-year-old female with past medical history significant for chronic respiratory failure with hypoxia currently on home oxygen 3 L, COPD, moderate pulmonary hypertension, hypertension constipation, protein-calorie malnutrition, CKD stage III , chronic ITP, prior nonmelanoma skin cancer, atrial fibrillation presented to [facility] due to bright red blood per rectum. Patient states that she has been in her usual state of health; however, noted that she had been constipated. Yesterday, when trying to go to the bathroom, she was passing "little hillary" and noted blood dripping into the toilet. She states she tried Mirlax, but her bowels were still so firm. She does note that she has not had her Doptelet in over a week due to insurance issues and specialty pharmacy issues. She was able to get the medication yesterday and took a dose in the evening She denies gingival bleeding, any new rashes, hemoptysis, hematuria, hematemesis or melena. She denies abdominal pain, chest pain, confusion/headache. She does report some epistaxis with her night time oxygen. She also reports a few bruises on her arms, remarking she "bruises easy" In the ED, vitals were notable for BP of 130-160s, HR of 60s, and O2 sat of high 90s on room air. Imaging revealed questionable left lung pneumonitis/aspiration (no corresponding concerns) EKG QtC 433, Consultants: Heme: Dr. Choi, starting 1g/kg IVIG Patient to be admitted to [facility] for further evaluation and management of acute on chronic ITP Admission Exam Per Admitting Provider GENERAL APPEARANCE: AxOx4, generally well-appearing elderly woman, no acute distress. HEENT: NC, AT. MMM. EOMI, clear conjunctiva, oropharynx clear. poorly fitted dentures NECK: Supple without lymphadenopathy. No stiffness or restricted ROM. HEART: Normal rate and regular rhythm, normal S1/S1, no m/r/g LUNGS: CTAB, moving air well. No crackles or wheezes are heard. ABDOMEN: Soft, nontender, nondistended with good bowel sounds heard. BACK: No CVAT, no obvious deformity. EXTREMITIES: Without cyanosis, clubbing or edema. no petechiae NEUROLOGICAL: Grossly nonfocal. Alert and oriented, moving all 4 extremities. CN not formally tested but appear grossly intact. Skin: Warm and dry without any rash. Principal Diagnosis UTI Acute on chronic thrombocytopenia Hematochezia Discharge Exam General Appearance: Thin, frail, elderly F in NAD Head: normocephalic, Atraumatic Eyes: normal inspection, EOMI Neck: supple Respiratory/Chest: Normal breath sounds, CTA, No accessory muscle use Cardiovascular: S1, S2, No murmur Abdomen/GI:Soft, Non tender, Bowel sounds present Extremities/Musculoskeletal:normal inspection, no edema Neurologic/Psych: awake, alert, speech fluent, answers appropriately, moves extremities Skin: normal color, warm Discharge Data Allergies Allergy/AdvReac Type Severity Reaction Status Date / Time lisinopril AdvReac Intermediate Gastrointestinal Verified 12/05/23 23:46 Upset Consultations 10/12/24 12:27 ED Decision to Admit Stat 10/13/24 09:36 Consult Neurology Routine Ordered Studies 10/12/24 17:53 CT head/brain wo con Urgent Findings: No intracranial hemorrhage, mass-effect, or midline shift. The ventricles are proportionate to the cerebral sulci. The mercedes to white matter differentiation of the cerebral hemispheres is preserved. The basal cisterns are patent. Moderate cerebral atrophy. The visualized paranasal sinuses are clear. Mastoid air cells are clear. Impression: No acute intracranial pathology. 10/13/24 08:25 CTA head wo/w [CT angio head wo/w] Stat FINDINGS: No acute intracranial hemorrhage, midline shift or mass effect is present. Ventricular system is unremarkable. Basal cisterns are patent. There are no extra-axial collections. Exam is mildly compromised by artifact. There are no findings to suggest acute dural sinus thrombosis or acute territorial infarct. White matter hypodensity suggests small vessel disease. The bilateral M1, M2, A1 and A2 segments are patent. There is moderate calcified plaque within bilateral cavernous carotids without significant stenosis. There is no intracranial aneurysm. Posterior circulation is intact. The right vertebral artery is dominant. The major dural sinuses are patent. IMPRESSION: 1. No acute intracranial findings. 2. No large vessel occlusion. No intracranial aneurysm. CTA neck with con [CT angio neck with con] Stat Findings: Visualized portions of the lung apices are unremarkable. There is no cervical lymphadenopathy. There are no cervical spine fractures. There is extensive atherosclerotic plaque of the aortic arch. Bilateral common carotid, cervical internal carotid and vertebral arteries are patent. No stenosis, dissection or aneurysms within the neck is identified. The right vertebral artery is dominant. IMPRESSION: No stenosis, dissection or aneurysm within the bilateral common carotid, cervical internal carotid or vertebral arteries. 10/13/24 09:36 MR brain wo con Routine FINDINGS: This exam is moderately compromised by motion artifact. However, the diffusion-weighted sequence diagnostic. There are no foci of restricted diffusion to suggest acute infarct. No acute intracranial hemorrhage, midline shift or mass effect is present. Ventricular system is unremarkable. The basal cisterns are patent. There are no extra-axial collections. No intracranial masses are identified on unenhanced exam. IMPRESSION: 1. No evidence for acute infarct. 2. Moderate motion artifact, as described above. Hospital Course (1) Thrombocytopenia: (2) Acute ITP: (3) Chronic hypoxic respiratory failure, on home oxygen therapy: (4) Paroxysmal atrial fibrillation: Plan Ms. Kennedy is an 88-year-old female with past medical history significant for chronic respiratory failure with hypoxia currently on home oxygen 3 L, COPD, moderate pulmonary hypertension, hypertension constipation, protein-calorie malnutrition, CKD stage III , chronic ITP, prior nonmelanoma skin cancer , atrial fibrillation who is admitted for acute on chronic ITP. Severe thrombocytopenia Acute on Chronic ITP Hematochezia--resolved Missed medication due to insurance/pharmacy similar presentation 2021 s/p IVIG 1g/1kg per Heme Continue home Doptelet --Discussed with hematology Dr. Zeeshan Choi on 10/13/2024 and on 10/15/2024, again discussed on 10/16 prior to DC Monitor CBC Held Eliquis given anemia, thrombocytopenia Monitor platelet count closely Platelet count 90 today (10/16/2024) Monitor H&H and transfuse as needed Currently no active bleeding issues Discussed with hematology yesterday: received Decadron 40 mg daily for 2 days Needs follow-up with hematology on discharge with repeat blood work - pt has appointment for tomorrow Strokelike symptoms/abnormal upper extremity movements/shakiness DD: Secondary to steroids, UTI Cannot rule out seizures CVA unlikely given negative imaging studies and no focal deficits on exam --MRI Brain: No evidence for acute infarct. --EEG c/w nonspecific encephalopathy --Head CTA:No acute intracranial findings. No large vessel occlusion. No intracranial aneurysm. --Neck CTA: No stenosis, dissection or aneurysm within the bilateral common carotid, cervical internal carotid or vertebral arteries. PT OT, speech eval Aspiration, fall precautions Appreciate neurology input Continue neurochecks Resolved Urinary tract infection--POA Urine culture growing Enterococcus faecalis Continued daptomycin while inpt --> will DC on PO amoxicillin Renally adjust medications as needed COPD Nocturnal hypoxia 2L at bedtime continue o2 at bedtime copd stable, continue home nebs Currently no signs of exacerbation Paroxysmal A-fib Continue metoprolol 50mg BID Resume Eliquis as able Chronic GABRIELA anemia Baseline hemoglobin around 7-9 FOBT + thrombocytopenia and reported hematochezia Transfuse < 7.0 or symptomatic Denies any bleeding issues currently Continue iron supplements Hypertension Continue metoprolol Monitor Constipation Continue bowel regimen CKD stage III Cr at baseline Monitor renal function Total Time Total Time Spent Total Time Spent (In Minutes): 40 Discharge Plan Discharge Items Patient Disposition: Home - Self-Care Reason For Visit: GI BLEED, ACUTE ON CHRONIC THROMBOCYTOPENIA Discharge Diagnosis: UTI Acute on chronic thrombocytopenia Hematochezia Activity: Per Instructions section Non-emergency contact: Primary Care Provider, Specialist and Oncologist Call non-emergency contact if: you have any medication questions and your symptoms worsen Follow-up/Referrals: Toshia Reynaga DO [Primary Care Provider] - (Date & Time 10/22/2024 2:00 PM Provider: Toshia Reynaga DO [facility] ) Diet: Heart Healthy Diet Texture: Easy to Chew Addtl Attending Provider Instructions: Follow up with your primary care doctor and your credentialing analyst/oncologist (Dr. Choi) as scheduled. Finish antibiotic treatment as prescribed. Pending Studies at Discharge: No Stand-Alone Forms: [facility] File, Smoking Cessation Medications and DC Order Prescriptions: New amoxicillin 875 mg Tablet 875 mg PO BID 3 Days Qty: 6 0RF Continued metoprolol succinate 50 mg tablet extended release 24 hr 50 mg PO BID amlodipine 5 mg tablet 5 mg PO DAILY furosemide 20 mg tablet 20 mg PO DAILY Eliquis 2.5 mg tablet 2.5 mg PO BID Trelegy Ellipta 100-62.5-25 mcg blister with device 1 inh INHALATION DAILY Doptelet (10 tab pack) 20 mg tablet 20 mg PO UD Rx Instructions: 20mg po daily except Monday and Monday polyethylene glycol 3350 17 gram/dose powder 17 g PO DAILY PRN (Reason: Constipation) ferrous sulfate 325 mg (65 mg iron) tablet,delayed release (DR/EC) 325 mg PO DAILY Discharge Orders: Discharge Order (Routine); Ordered 10/16/24 Ordered By: Shiva De Jesus Admission Data Admit Date/Time: 10/12/24 12:50 Attending Provider: Shiva De Jesus Admit Provider: Alison Grant Primary Care Provider: Toshia Reynaga Other Providers: Alison Grant; Karla Au; Seamus Gibbons; Karla Motley; Christian Vang; Nicolas Jason; Dale Cooper; Navi Olguin; Trina Herman; Cb Hector; Aidan Suarez; Heike Cabrera; Hakeem Clayton; Alexandra Thompson; Natalya Liriano; Navi Nice; Michelle Diaz; Gerald Gill
[2024-10-16] MEDS ORDERED: DAPTOmycin 350 MG in SYRINGE 0 ML IV SCH ×2 (14:00→15:00)
[2024-10-16 14:12] VITALS: PULSE 63
== END 2024-10-16 16:31 | disposition home or self-care (01) | DRG 813 ==
LOC: ED 10:00 → 2N 12:50 → SUATTDRO 12:50 → 2N 14:13
DX: R29.810 Facial weakness; I27.20 Pulmonary hypertension, unspecified; Z66 Do not resuscitate; N39.0 Urinary tract infection, site not specified; I48.0 Paroxysmal atrial fibrillation; Z79.51 Long term (current) use of inhaled steroids; Z79.01 Long term (current) use of anticoagulants; K92.1 Melena; N18.30 Chronic kidney disease, stage 3 unspecified; W18.30XA Fall on same level, unspecified, initial encounter; D69.3 Immune thrombocytopenic purpura; J96.11 Chronic respiratory failure with hypoxia; B95.2 Enterococcus as the cause of diseases classified elsewhere; J44.9 Chronic obstructive pulmonary disease, unspecified; Z79.899 Other long term (current) drug therapy; I12.9 Hypertensive chronic kidney disease with stage 1 through stage 4 chronic kidney disease, or unspecified chronic kidney disease; E46 Unspecified protein-calorie malnutrition; Z99.81 Dependence on supplemental oxygen; K59.00 Constipation, unspecified; Y92.231 Patient bathroom in hospital as the place of occurrence of the external cause